=== PATIENT | female | born 1945 | race Caucasian/White ===

== ENCOUNTER 2021-06-02 11:06 | Outpatient (CLI) | payer MEDICARE, SELFPAY ==
--- NOTE | 2021-06-02 11:30 | ECG_ITS ---
Measurements Intervals [place] Rate: 69 P: 38 AL: 210 QRS: -23 QRSD: 112 T: 31 QT: 392 QTc: 421 Interpretive Statements SINUS RHYTHM WITH SINUS ARRHYTHMIA WITH FIRST DEGREE AV BLOCK INTRAVENTRICULAR CONDUCTION DELAY VOLTAGE CRITERIA FOR LVH BORDERLINE R WAVE PROGRESSION, ANTERIOR LEADS T WAVE ABNORMALITY IN ANTEROLATERAL LEADS- CONSIDER ISCHEMIA BASELINE ARTIFACT- I, III, AVR, AVL, AVF ABNORMAL ECG Electronically Signed On 06-02-2021 11:32:01 CDT by Khoa Campbell D.O.
[2021-06-02 11:50] LABS: Anion Gap 7 mmol/L (8-16); Blood Urea Nitrogen 12 mg/dL (7-17); Carbon Dioxide 26 mmol/L (22-30); Chloride 105 mmol/L (98-107); Estimated Glomerular Filt Rate > 60; Glucose 204 mg/dL (65-110); Potassium 4.1 mmol/L (3.4-5.0); Sodium 138 mmol/L (137-145)
== END 2021-06-02 11:07 | disposition home or self-care (01) ==
LOC: ANHSURGERY 11:13
PROVIDERS: Anesthesiology; PCP Hospitalist; Visit Provider Orthopaedic Surgery
DX: Z01.818 Encounter for other preprocedural examination (principal); E11.9 Type 2 diabetes mellitus without complications; I45.9 Conduction disorder, unspecified; I44.0 Atrioventricular block, first degree
CPT/HCPCS: 36415; 80048; 93005

== ENCOUNTER 2021-06-03 01:02 | Day surgery (SDC) | payer MEDICARE, SELFPAY ==
[2021-06-01 15:40] VITALS: BMI 36.8
--- NOTE | 2021-06-02 11:41 | P.PNAN_ITS ---
Anes - Initial Pre Proc Eval Procedure: Operation Date: 06/03/21 14:00 Proposed Procedures p Open Reduction Internal Fixation Right Proximal Humerus Fracture - Andre Dodson MD Date/Time: 06/02/21 11:41 Surgeon: Andre Dodson MD Pre Op Diagnosis: Right Humerus Fracture Patient Data Age: 75 Gender: F Height: 1.6 m Weight: 94.35 kg Allergies Allergy/AdvReac Type Severity Reaction Status Date / Time No Known Allergies Allergy Verified 06/03/21 12:14 Home Medications Medication Instructions Recorded Confirmed Type aspirin 81 mg PO DAILY 09/12/19 06/03/21 History atorvastatin 80 mg PO DAILY 09/12/19 06/03/21 History carvedilol 6.25 mg PO BID 09/12/19 06/03/21 History gabapentin 300 mg PO BID 09/12/19 06/03/21 History levothyroxine 125 mcg PO DAILY 09/12/19 06/03/21 History losartan 50 mg PO DAILY 09/12/19 06/03/21 History metformin 1,000 mg PO DAILY 09/12/19 06/03/21 History vn-ho-hvel-FA-Ca carb-vit K 1 tablet PO DAILY 09/12/19 06/03/21 History [One-A-Day Womens Formula] sertraline 100 mg PO DAILY 09/12/19 06/03/21 History adalimumab 40 mg/0.8 mL See Rx Instructions SUBCUT .COMPLEX 06/01/21 06/03/21 History subcutaneous syringe kit clobetasol 0.05 % scalp solution 1 applic TOPICAL DAILY 06/01/21 06/03/21 Hist ory fluticasone propionate 50 1 spray INTRANASAL DAILY 06/01/21 06/03/21 History mcg/actuation nasal spray,suspension hydrocodone-acetaminophen 1 tablet PO Q6H PRN 06/01/21 06/03/21 History nabumetone 500 mg PO BID 06/01/21 06/03/21 History sitagliptin [Januvia] 200 mg PO DAILY 06/01/21 06/03/21 History Patient hx anesthesia problems: none Family hx anesthesia problems: none PMFSH Past Medical History Medical History (Updated 06/02/21 @ 11:42 by Car Grimm DO) Chronic, continuous use of opioids Diabetes Hyperlipidemia Hypertension Hypothyroidism Surgical History Surgical History History of back surgery Social History Social History Smoking packs per day: 1 Smoking cigarettes per day: 20.0 Years smoked: 10 Smoking pack-years: 10.00 Smoking status: Former smoker Tobacco type: cigarettes Smoking end date: 09/24/79 Substance use type: other Other substance usage details: CBD GUMMIES EVERY DAY Spiritual care concerns: No Anes - Eval Final PreProcedure Day of Procedure 06/02/21 11:41 Patient weight: obese Heart: regular rate and rhythm Lungs: clear to auscultation and normal air movement Airway: Mallampati scale class II Neurological: alert and oriented Last oral intake: >/= 8 hours ASA classification: III Emergent: no Anesthetic plan: proceed Anesthesia type and monitoring: general LMA and standard monitoring Informed Consent: The patient's anesthetic plan and its attendant risks and benefits were discussed with the patient/family/POA. Questions were solicited an d answers provided to the satisfaction of the patient/family/POA.
[2021-06-03] VITALS (8 sets, daily range): BP systolic 127–153; BP diastolic 62–91; PULSE 55–70; RESP 12–21; TEMP 36.2–36.9; O2SAT 92–96; BMI 36.6
--- NOTE | ~2021-06-03 | XR_ITS ---
EXAMINATION: XR surgery orthopedic EXAM DATE: 06/03/2021 16:20 INDICATION: Right humeral ORIF. TECHNIQUE: Fluoroscopy used during right humeral ORIF performed by Dr. Andre Dodson MD. Radi ologist was not present for the imaging or procedure. Total fluoroscopic time of 60 seconds. The DA P for this procedure was 1.1 mGym2. A total of 9 images sent to PACS from the exam. There is no alec or study for comparison. FINDINGS: Acute closed posttraumatic comminuted right humeral head/neck fracture. This was reduced. Orthopedic plate was used with supporting screws. Correlate with procedure note. IMPRESSION: Fluoroscopy used during right humeral ORIF. Reviewed, dictated and finalized at location A.
--- NOTE | 2021-06-03 10:11 | WPDANESPNB ---
Anes - Peripheral Nerve Block Date/Time: 06/03/21 10:11 I have discussed with the patient/family/POA the placement of a peripheral nerve block for post-operative pain management, including associated risks, benefits, complications, and side effects. Alternative methods of post-operative analgesia were detailed. Questions were solicited and answers provided to the satisfaction of the patient/family/POA. Time-Out: A pre-procedural Time-Out was completed immediately before starting the procedure and confirmed: Patient Identification, Site, Procedure, Patient Position and the Availability of Requisite Equipment. Clinical Indications: Acute post-operative pain management requested by the operative surgeon. Nerve Block Insertion Note Anes-nerve block: interscalene right Patient position: supine Skin prep: chlorhexidine Needle: 22 gauge, stimulating, insulated echogenic needle. Needle length: 50 mm Technique: ultrasound Injectate: bupivacaine 0.5% with epi 5 mcg/ml (30cc- no epi) Observations: tolerated well Complications: none Procedure start time:: 1340 Procedure end time:: 1343
[2021-06-03] MEDS: LACTATED RINGERS 1,000 ML 30 ML IV CONT (12:44)
[2021-06-03] MEDS: KETOROLAC 15 MG/ML VIAL (*BKC) IV PUSH (12:44)
[2021-06-03 13:22] LABS: Anion Gap 6 mmol/L (8-16); Blood Urea Nitrogen 14 mg/dL (7-17); Calcium 9.6 mg/dL (8.4-10.2); Carbon Dioxide 25 mmol/L (22-30); Chloride 106 mmol/L (98-107); Estimated CRCL calculation 74 ml/min; Estimated Glomerular Filt Rate > 60; Glucose 171 mg/dL (65-110); Sodium 137 mmol/L (137-145)
--- NOTE | 2021-06-03 13:45 | WPDHPUPDATE1 ---
History and Physical Update Update Date/Time: 06/03/21 13:45 History and Physical has been reviewed, including an updated exam of the patient. There are NO changes in the patient's condition. Risks, benefits, and alternatives have been discussed and questions answered. Patient agrees to proceed with procedure.
[2021-06-03] MEDS: ceFAZolin 2 GM/D5W 50 ML 2 GM/50 ML BAG IVPB (13:52)
--- NOTE | 2021-06-03 14:06 | SUR.PREOP ---
7280; DR SOSA NOTIFIED OF PARTIAL SHAVE AND SCRUB DUE TO PT'S PAIN.
[2021-06-03 17:09] LABS: Glucose Point of Care 178 mg/dl (65-105)
--- NOTE | 2021-06-03 17:10 | P.OP_ITS ---
Procedure Note - Detailed Date of Procedure 06/03/21 Pre-op Diagnosis Right shoulder 3-part proximal humerus fracture. Post-op Diagnosis same Procedure Performed ORIF right proximal humerus surgical neck fracture ( 3 part valgus impacted.) Surgeon Andre Dodson MD Mail Examiner Maritza Mann PA-C Anesthesia general and regional ( Interscalene block.) Findings The fracture was partially healed with maturing callus. Alignment was improved with manipulation. The plate appeared to sit nicely on the bone although fluoroscopically it appeared that some of this bone was clearly filled in with callus under the periosteum. It was elected to leave this in situ, as the overall contour of the plate and the bone appeared nearly anatomic. The fracture was very stable at the conclusion of the procedure. Description of Procedure Preoperative antibiotics were given. A general anesthetic was administered. The patient was carefully placed in the beach chair position. The head and neck were carefully supported. The contralateral arm was padded. The shoulder was prepped and draped in usual sterile fashion and the articulating arm gonzalez was used. A longitudinal incision was created over the anterior shoulder. The deltopectoral interval was dissected. The fracture was identified. The biceps tendon was used for orientation. Fracture was cleared of debris and irrigated. Biplanar fluoroscopy was used throughout the procedure to confirm anatomic reduction and appropriate placement of all implants. Reduction was performed with a combination of forceps and K-wires. The plate was fixed and the central wire was used to confirm appropriate placement. A compression was screw was placed in the dynamic hole. The proximal locking screws and pegs were placed. Careful attention was paid to the length of the screws to avoid penetration. Shaft locking screws were then placed. Supplemental suture fixation was placed in the rotator cuff. The sutures were tied through the plate. The wound was irrigated and closed with interrupted 1. Vicryl suture followed by 0 strata fix, 2 0 strata fix and Steri-Strips. A sterile dressing was applied. The patient was extubated and brought to the recovery room in stable condition. There were no complications. Implants [employer] ALPS locking periarticular plate Estimated Blood Loss -200.0 Drains No Packing No Complications No immediate complications Condition stable Disposition PACU
== END 2021-06-03 17:52 | disposition home or self-care (01) ==
PROVIDERS: PCP Hospitalist; Visit Provider Orthopaedic Surgery
PROC: (CPT 23615; principal; 2021-06-03 14:00)
DX: S42.231A 3-part fracture of surgical neck of right humerus, initial encounter for closed fracture (principal); G89.18 Other acute postprocedural pain; W01.0XXA Fall on same level from slipping, tripping and stumbling without subsequent striking against object, initial encounter; I10 Essential (primary) hypertension; E78.5 Hyperlipidemia, unspecified; E11.9 Type 2 diabetes mellitus without complications; E03.9 Hypothyroidism, unspecified; Z79.891 Long term (current) use of opiate analgesic; Z87.891 Personal history of nicotine dependence; F12.90 Cannabis use, unspecified, uncomplicated; E66.9 Obesity, unspecified; Z68.36 Body mass index [BMI] 36.0-36.9, adult; Z79.82 Long term (current) use of aspirin; Z79.84 Long term (current) use of oral hypoglycemic drugs
CPT/HCPCS: 23615; 64415; 36415; 80048; 82948; 93005; A4565; C1713; J0330; J0690; J1100; J1885; J2250; J2370; J2405; J2704; J2710; J3010; J7120

== ENCOUNTER 2021-06-20 11:30 | Inpatient (IN) | payer MEDICARE, SELFPAY ==
--- NOTE | ~2021-06-20 | XR_ITS ---
EXAMINATION: XR shoulder RT min 2V EXAM DATE: 06/28/2021 18:48 INDICATION: Status post proximal humerus fracture, hardware removal. TECHNIQUE: The following right shoulder projections obtained: frontal projection with internal rotati on, frontal projection with external rotation, Grashey, and scapular Y view (4+ views). Comparison is made to prior examination from 06/01/2021, 06/20/2021, 06/21/2021. FINDINGS: Hardware was present on x-ray 06/20/2021, was removed and a subsequent x-ray the next day. P osition of the right humeral neck, greater tuberosity fracture is stable. There are some screw tracks in the humeral head and neck. Mildly mottled appearance to the humeral head, partly due to periostea l reaction. Given history of suspected infected shoulder hardware, sequela from osteomyelitis not exc ludable. Right axillary surgical clips. Probable right 5th rib fracture anterolaterally, age indeterminate. There is mild inferior subluxation of the humeral head without lalita dislocation. IMPRESSION: 1. Right humeral head/neck fractures with some increase in periosteal reaction, healing response. Ali gnment stable. 2. Mottled appearance overlying humeral head and neck at least partly from the increasing periosteal reaction. Osteomyelitis not excludable. Reviewed, dictated and finalized at location A. IMPRESSION: 1. Right humeral head/neck fractures with some increase in periosteal reaction, healing response. Alignment stable. 2. Mottled appearance overlying humeral head and neck at least partly from the increasing periosteal reaction. Osteomyelitis not excludable.
--- NOTE | ~2021-06-20 | XR_ITS ---
EXAMINATION: XR shoulder RT min 2V DATE: 06/21/2021 13:01 INDICATION: Postoperative evaluation following of orthopedic instrumentation removal TECHNIQUE: AP and transscapular Y views of the right shoulder were obtained. COMPARISON: 06/20/2021 FINDINGS: Interval explantation of the prior plate and screw fixation at the proximal left humerus. Again seen is an ununited appearing mildly comminuted transverse fracture across the surgical neck with up to 9 mm anteromedial displacement. Expected small amount of soft tissue gas as well as a surgical drain at the operative bed. A few unchanged surgical clips at the right axilla consistent with prior right ax illary lymph node dissection. Mild opacities at the right lung base and favor atelectasis over pneumo jared. IMPRESSION: 9 mm anteromedial displacement of likely still ununited mildly comminuted transverse fracture to surg ical neck of the proximal right humerus post explantation of prior internal fixation instrumentation. Reviewed, dictated and finalized at location A.
--- NOTE | ~2021-06-20 | XR_ITS ---
EXAMINATION: XR chest port-a-cath/central DATE: 06/29/2021 16:20 INDICATION: Central line placement. TECHNIQUE: A single frontal view of the chest was obtained. COMPARISON: Chest 2 views 03/07/2014, right shoulder radiographs 06/28/2021 FINDINGS: There is mild atelectasis in lingula. No pleural effusion or pneumothorax. The heart size i s normal. A right internal jugular central venous catheter is seen with tip at the superior cavoatria l junction. There is a fracture of surgical neck of proximal right humerus. There are surgical clips in right axilla. IMPRESSION: 1. Central line tip at superior cavoatrial junction. 2. Mild atelectasis in lingula. 3. Fracture of proximal right humerus again seen. Reviewed, dictated and finalized at location A.
--- NOTE | ~2021-06-20 | XR_ITS ---
EXAMINATION: XR fl guide central line place DATE: 06/29/2021 15:45 INDICATION: Central line placement. TECHNIQUE: A single intraoperative fluoroscopic view of the chest was obtained. I was not present. Fl uoroscopy time was 224 seconds. COMPARISON: Chest single view 06/29/2021 FINDINGS: There is a central line tip in right atrium. IMPRESSION: 1. Central line tip in right atrium. Reviewed, dictated and finalized at location A.
--- NOTE | ~2021-06-20 | XR_ITS ---
EXAMINATION: XR shoulder RT min 2V EXAM DATE: 06/20/2021 16:45 INDICATION: Infection status post right proximal/ANTERIOR humerus ORIF . TECHNIQUE: Frontal, oblique, lateral projections right shoulder. Comparison is made to prior examina tion from 06/01/2021. FINDINGS: There is been interval placement of orthopedic plate, multiple supporting screws bridging t he comminuted right humeral neck and greater tuberosity fractures. Hardware is intact and in expected position. Alignment is anatomic and previously seen displacement has been reduced. No osseous erosiv e change identified at this time to suggest osteomyelitis. There is osteopenia. Right axillary surgic al clips. There is mild inferior subluxation of the humeral head with respect to the glenoid on some of the projections. No lalita dislocation. IMPRESSION: 1. Intact right humeral head/neck hardware. 2. No radiographic evidence of osteomyelitis. Reviewed, dictated and finalized at location A.
[2021-06-20 10:00] VITALS: BP 149/81; PULSE 72; RESP 18; TEMP 36.4; O2SAT 99
--- OUTSIDE RECORDS SUMMARY | 2021-06-20 10:22 | XMS_ITS ---
:1945 External Reference #:[id number] Author Care Team Providers Name Role Phone Moriah Rodriguez Primary Care Provider Unavailable Allergies Code Code System Name Reaction Severity Status Onset Adhesive Tape Itching Mild to Active ? Moderate Medications Name Status Start Date Stop Date ? ? amoxicillin 500 mg-potassium Completed ? 11/2019 clavulanate 125 mg tablet amoxicillin 875 mg-potassium clavulanate 125 mg tablet Completed ? 07/03/2020 TK 1 T PO Q 12 H FOR 14 DAYS atorvastatin 80 mg tablet Active ? Not av ailable Take 1 tablet every day by oral route. azithromycin 250 mg tablet Completed ? 11/24 betamethasone valerate 0.1 % topical cream Active ? Not available ZAN MODEST AMOUNT TOPICALLY TO RASH ON FEET BID buspirone 5 mg tablet Completed ? 11/25/2019 carvedilol 6.25 mg tablet Active ? Not av ailable TK 1 T PO BID WITH MEALS cephalexin 500 mg capsule Completed ? 2019 diclofenac sodium 75 mg tablet,delayed Completed ? 11/25/2019 release etodolac 400 mg tablet Active ? Not avail able Take 1 tablet 3 times a day by oral route as needed. fluconazole 150 mg tablet Completed ? 2019 gabapentin 100 mg capsule Completed ? 2019 gabapentin 300 mg capsule Active ? Not av ailable hydroxyzine HCl 10 mg tablet Active ? Not available TK 1 T PO QHS PRF ITCHING levothyroxine 125 mcg tablet Active ? Not available TK 1 T PO D losartan 50 mg tablet Active ?
--- NOTE | 2021-06-20 10:49 | ADMGEN ---
This patient, Wendy Stokes, was admitted to Medical Room 349-01. Patient/family oriented to hospital policies and general routines including ID bracelet, bed and alarms, visiting hours, pain management, procedures, bathroom and other care routines, personal items, smoking policy, room service/diet, and visiting hours. Information on how to activate the Rapid Response Team has been discussed. Patient/Family are encouraged to report perceived risks to care and to ask questions if they do not understand what they are told or what they should do. Patient in bed resting comfortably at this time with no complaints. Will continue to monitor patient.
[2021-06-20 11:58] VITALS: BMI 32.2
[2021-06-20] MEDS: oxyCODONE HCL (*CRX) 5 MG TAB IR 10 MG PO ×3 (12:17→20:40)
[2021-06-20 12:21] LABS: Estimated CRCL calculation 60 ml/min; Estimated Glomerular Filt Rate > 60
--- NOTE | 2021-06-20 12:27 | P.PNINF_ITS ---
Progress Note: A&P Assessment and Plan (1) Deep postoperative wound infection: Code(s): T81.42XA - Infection following a procedure, deep incisional surgical site, initial encounter Status: Acute Assessment and Plan: 1. SSI R upper arm 2. Humerus facture 3. Erythema R knee, no convincing sig of infection at present 4. Psoriasis, on Humira, last dose 06/18. Her ongoing treatment predisposed to this infection REC Ctx and Vanc #1. Request intraoperative aerobic and anaerobic and fungal and Mycobacterial cultures. No Humira until infection is cleared. Subjective Date/time seen: 06/20/21 12:27 Objective Data Vital Signs Vital Signs: Vital Signs - 24 hr 06/20/21 10:00 Temperature 36.4 C Pulse Rate 72 Respiratory Rate 18 Blood Pressure 149/81 H Pulse Oximetry 99 Meds/Results Medications: Active Medications Generic Name Dose Route Start Last Admin Trade Name Freq PRN Reason Stop Dose Admin Sodium Chloride 1,000 mls @ 100 mls/hr 06/20/21 11:30 Normal Saline Iv IV CONT .Q10H CRISTY Acetaminophen 1,000 mg in 100 mls @ 400 mls/hr 06/20/21 12:00 Ofirmev 1,000 Mg Ivpb IVPB 06/21/21 11:59 Q6HR CRISTY Cefepime HCl 1 gm in 50 mls @ 100 mls/hr 06/20/21 14:00 Maxipime 1 Gm/D5w 50 Ml IVPB Q8H [facility] Vancomycin HCl 1,250 mg in 250 mls @ 200 mls/hr 06/20/21 12:30 Vancomycin 1,250 Mg/D5w 250 Ml IVPB 06/20/21 13:44 ONCE ONE Naloxone HCl 0.1 mg 06/20/21 11:30 Naloxone Hcl 0.4 Mg/Ml Vial IV PUSH Q2M PRN Opiate Reversal Ondansetron HCl 4 mg 06/20/21 11:30 Ondansetron Inj 4 Mg/2 Ml Vial IV PUSH Q6H PRN Nausea And Vomiting Oxycodone HCl 10 mg 06/20/21 11:35 06/20/21 12:17 Oxycodone Hcl (*Crx) 5 Mg Tab Ir PO 10 mg Q4H PRN Administration Pain Rated 6 or Greater Vancomycin HCl 1 each 06/20/21 11:35 Vancomycin Pharmacist To Dose IVPB PER PROTOCOL CRISTY Labs Labs: Laboratory Results - last 24 hr 06/20/21 12:00 Creatinine 0.70 Estim Creat Clear Calc 60 Estimated GFR > 60
[2021-06-20 13:17] VITALS: BP 135/68; PULSE 86; RESP 16; TEMP 36.8; O2SAT 96
[2021-06-20] MEDS: SODIUM CHLORIDE 0.9% IV 1,000 ML 100 ML IV CONT (15:08)
--- NOTE | 2021-06-20 16:32 | PM.IMCN ---
Assessment and Plan Assessment and plan (1) Deep postoperative wound infection: Code(s): T81.42XA - Infection following a procedure, deep incisional surgical site, initial encounter Status: Acute Assessment and Plan: Dr. Dodson has seen the patient. Dr. michelle seen the patient. The patient is on ceftriaxone and vancomycin. I was going to try to culture some of the drainage coming from the right upper arm. However the patient stated that she was told that tomorrow they are going to drain some of the fluid for culture tomorrow. Dr. michelle requested intraoperative a aerobic and anaerobic and fungal and mycobacterial cultures. No Humira until infection is cleared. (2) Diabetes: Code(s): E11.9 - Type 2 diabetes mellitus without complications Status: Chronic Assessment and Plan: Continue with Januvia. Sliding scale insulin. Check A1c. (3) Hypertension: Code(s): I10 - Essential (primary) hypertension Status: Chronic Assessment and Plan: Continue with losartan and monitor her basic metabolic panel. Continue with Coreg. (4) Hypothyroidism: Code(s): E03.9 - Hypothyroidism, unspecified Status: Chronic Assessment and Plan: Continue with home medication. Check thyroid level. (5) Hyperlipidemia: Code(s): E78.5 - Hyperlipidemia, unspecified Status: Chronic Assessment and Plan: Continue with atorvastatin. (6) Psoriasis: Code(s): L40.9 - Psoriasis, unspecified Status: Chronic Assessment and Plan: Humira is on hold at this time. (7) Chronic back pain: Code(s): M54.9 - Dorsalgia, unspecified; G89.29 - Other chronic pain Status: Chronic Assessment and Plan: Continue with gabapentin and [place]. (8) Generalized anxiety disorder: Code(s): F41.1 - Generalized anxiety disorder Status: Chronic Assessment and Plan: Continue with Zoloft HPI Data of Consult Consult date: 06/20/21 Requesting Physician: Andre Dodson MD Primary Care Provider: Bradley RubinMD Consult Narrative Narrative: Wendy Stokes is a 75 year old female this is a 75 year old female patient who had an ORIF of the right proximal humerus surgical neck 3 part focus impacted per Dr. Dodson on 06/03/2021. See operative report. The patient had a [employer] a LPS locking periarticular plate placed at that time. Prior to her surgery, The patient sustained a right shoulder fracture after ground level fall the patient fell at a group home while visiting her mother. She notes that the floor was sticking in her shoe tripped her. The patient stated that she fell on 05/16/2021 and was referred to Dr. Dodson. The patient stated that 4 days after surgery she noticed that the area started to get red. She told me that she did notify her physician and was placed on antibiotics. The patient stated that she had not gotten any better. The patient went to [facility] this morning and was then transferred back to [facility]. Dr. michelle had been consulted and has already seen the patient. The patient is a very difficult stick and the venous access nurse was able to get an IV in her left forearm. Patient has multiple old bruises noted on her left arm. She had surgery to her right upper arm which is draining clear fluid. The patient had been started on Keflex a couple days ago without any improvement. The patient was started on IV fluids, IV Tylenol, vancomycin and Rocephin. The patient was admitted to inpatient services per Dr. Dodson and the hospitalist group at been consulted. I thank Dr. Dodson for this opportunity to consult on this patient. The date of service is 06/20/2021. Review of Systems Review of Systems: All systems reviewed & are unremarkable except as noted in HPI and below Constitutional: Constitutional: Reports as per HPI and Reports no additional constitutional complaints E
[2021-06-20 16:38] LABS: Glucose Point of Care 172 mg/dl (65-105)
[2021-06-20 17:00] VITALS: BP 124/54; PULSE 72; RESP 18; TEMP 36.6; O2SAT 96
--- NOTE | 2021-06-20 17:20 | CONS_ITS ---
DATE OF CONSULTATION: 06/20/2021 REASON FOR CONSULTATION: Surgical site infection. HISTORY OF PRESENT ILLNESS: A 75-year-old female who is on chronic Humira for psoriasis. Her last dose was 06/18/2021. She takes this every 2 weeks. No other immunosuppressants. She injured her right humerus in a fracture about the beginning of May. She was taken to the operating room on June 03 approximately where she underwent ORIF. About postop day 5, she noted induration in the inferior aspect of the incision. She then noted erythema, which began to spread over the next week. Pointing patient 3 days before admission and cephalexin was started. She also has since had some nausea, which she relates to her analgesics. Pain became noticeable over the weekend and she presented to [facility] Emergency Room last evening where she received IV antibiotics and was apparently told to continue her oral cephalexin. She was seen in the office today and has now been admitted. No other recent antibiotics. No past trauma to the right arm. Upon my questioning, it appears that she had an incision which was fixed with glue, rather than benigno or stitches. No fever, chills, sweats, vomiting or distal arm pain. She has had some numbness in the fingertips x5, particularly over the thumb. ALLERGIES: NONE KNOWN. HABITS: Ex-smoker, quit in 1979. No illicit drugs. No alcohol. PRESENT MEDICATIONS: See above. PAST MEDICAL HISTORY: This includes diabetes mellitus, hyperlipidemia, hypertension, hypothyroidism, previous back surgery. REVIEW OF SYSTEMS: Redness over the right knee where she fell. 14-point review otherwise negative. FAMILY HISTORY: Not pertinent to her present illness. SOCIAL HISTORY: She was visiting her mother at a senior care on 05/16 when she fell. There is no family at the bedside. PHYSICAL EXAMINATION: GENERAL: This is an elderly female, who appears her actual age. No acute distress. VITAL SIGNS: Afebrile, 72, 18, 149/81, 99% room air. SKIN: Warm and dry. No generalized rashes. She has some mild erythema over the lateral right patella area. No warmth, tenderness, edema, or effusions. NODES: No cervical adenopathy. EENT: Pupils equal, round, reactive to light and accommodation. The oropharynx, oral mucosa normal. NECK: No masses, thyromegaly or meningismus. LUNGS: Clear to auscultation and percussion. CARDIAC: Regular rate and rhythm. No murmur or gallop. Radial pulses 2+. Dorsalis pedis pulses 1+. ABDOMEN: Nontender. No masses, organomegaly, or distention, and she has normal bowel sounds. EXTREMITIES: No peripheral clubbing, cyanosis, or edema. MUSCULOSKELETAL: Right lateral upper arm incision is fully closed. She has erythema over most of the lateral aspect of the arm along with induration in the inferior aspect of the incision. She has 2 areas of pointing in the inferior aspect as well. There is warmth. There is tenderness. LABORATORY DATA: She reports to me that blood cultures were done last evening at [facility]. We do not have access to those records, but presumably no growth after short incubation. Chemistries have not been redone. Creatinine today 0.7 otherwise. Other labs all pending. RADIOLOGY: Intraoperative x-rays 06/03/2021, posttraumatic, comminuted right humerus head and neck fracture which was reduced. ASSESSMENT: 1. Postoperative erythema, drainage, pain, and induration surgical site infection. This may well be deep. She has several drops of clear fluid that appears to be serum. However, she may have abscess or other deep infection. No known vascular compromise to the right upper extremity. 2. Humerus fracture. 3. Psoriasis. 4. Immunosuppressed on Humira,
[2021-06-20] MEDS: GABAPENTIN 300 MG CAPSULE PO (18:06)
[2021-06-20 20:00] VITALS: PULSE 66; RESP 16; O2SAT 93
[2021-06-20 21:05] VITALS: BP 114/57; PULSE 66; RESP 16; TEMP 36.9; O2SAT 93
[2021-06-20 23:45] VITALS: BP 114/56; PULSE 68; RESP 18; TEMP 36.8; O2SAT 95
[2021-06-21] VITALS (17 sets, daily range): BP systolic 110–144; BP diastolic 56–72; PULSE 64–80; RESP 14–20; TEMP 36.1–36.9; O2SAT 91–100
[2021-06-21] MEDS: SODIUM CHLORIDE 0.9% IV 1,000 ML 100 ML IV CONT (03:06)
[2021-06-21] MEDS: oxyCODONE HCL (*CRX) 5 MG TAB IR 10 MG PO ×3 (03:14→20:27)
[2021-06-21] MEDS: LEVOTHYROXINE SODIUM 125 MCG TABLET PO (05:52)
[2021-06-21 06:08] LABS: Basophils Absolute Auto 0.1 K/mm3 (0.0-0.1); Basophils Percent Auto 1.3 % (0.2-1.2); Eosinophils Absolute Auto 0.3 K/mm3 (0-0.3); Eosinophils Percent Auto 3.7 % (0-4.4); Hematocrit 33.4 % (37.0-47.0); Hemoglobin 10.3 g/dL (12.0-15.0); Immature Granulocyte Absolute 0.12 K/mm3 (0.00-0.031); Immature Granulocyte Percent A 1.8 % (0-0.5); Lymphocytes Absolute Auto 1.76 K/mm3 (0.9-3.2); Lymphocytes Percent Auto 26.2 % (18.3-44.2); Mean Corpuscular HGB Conc 30.8 g/dl (32-36); Mean Corpuscular Hemoglobin 27.4 pg (26-34); Mean Corpuscular Volume 88.8 fl (80-100); Mean Platelet Volume 9.9 fl (7.4-10.4); Monocytes Absolute Auto 0.9 K/mm3 (0.1-0.6); Monocytes Percent Auto 12.6 % (2.6-8.5); Neutrophils Absolute Auto 3.7 K/mm3 (1.3-6.7); Neutrophils Percent Auto 54.4 % (45.5-73.1); Platelet Count Result 388 k/mm3 (150-375); Red Blood Count 3.76 M/mm3 (4.2-5.4); Red Cell Distribution Width 13.5 % (11.5-14.5); White Blood Count 6.7 K/mm3 (4.5-10.0)
[2021-06-21 06:23] LABS: Lactic Acid Reflex 0.8 mmol/L (0.7-2.1)
[2021-06-21 06:25] LABS: Alanine Aminotransferase 32 U/L (4-35); Albumin Level 3.2 g/dL (3.5-5.1); Alkaline Phosphatase 309 U/L (38-126); Anion Gap 7 mmol/L (8-16); Aspartate Amino Transferase 28 U/L (14-36); Bilirubin,Total 0.5 mg/dL (0.2-1.3); Blood Urea Nitrogen 10 mg/dL (7-17); Calcium 8.8 mg/dL (8.4-10.2); Carbon Dioxide 28 mmol/L (22-30); Chloride 105 mmol/L (98-107); Estimated CRCL calculation 69 ml/min; Estimated Glomerular Filt Rate > 60; Glucose 148 mg/dL (65-110); Lactate Dehydrogenase 280 U/L (313-618); Magnesium 1.4 mg/dL (1.6-2.3); Potassium 3.3 mmol/L (3.4-5.0); Sodium 140 mmol/L (137-145)
[2021-06-21 06:55] LABS: Hemoglobin A1C 8.5 % (<5.7)
[2021-06-21] MEDS: SERTRALINE HCL 50 MG TABLET 100 MG PO (08:22)
[2021-06-21] MEDS: ATORVASTATIN 40 MG TABLET 80 MG PO (08:22)
[2021-06-21] MEDS: carvediloL 6.25 MG TABLET PO (08:23)
[2021-06-21] MEDS: LOSARTAN POTASSIUM 50 MG TABLET PO (08:23)
[2021-06-21] MEDS: FLUTICASONE PROPIONATE 0.05% NA SPR 16 GM BTL (*BKC) 1 SPRAY NASAL (08:24)
[2021-06-21 08:49] LABS: Glucose Point of Care 157 mg/dl (65-105)
--- NOTE | 2021-06-21 09:47 | WPDANESEFPP ---
Anes - Eval Final PreProcedure Day of Procedure 06/21/21 09:47 Patient weight: obese Heart: regular rate and rhythm Lungs: clear to auscultation Airway: Mallampati scale class II Neurological: alert and oriented Last oral intake: >/= 8 hours ASA classification: III Anesthetic plan: proceed Anesthesia type and monitoring: general LMA and standard monitoring Results Review: All pre-operative results and documents have been reviewed as part of the pre-operative evaluation. Informed Consent: The patient's anesthetic plan and its attendant risks and benefits were discussed with the patient/family/POA. Questions were solicited and answers provided to the satisfaction of the patient/family/POA.
[2021-06-21] MEDS: LACTATED RINGERS 1,000 ML 30 ML IV CONT ×2 (09:54→12:37)
--- NOTE | 2021-06-21 10:29 | WPDHPUPDATE1 ---
History and Physical Update Update Date/Time: 06/21/21 10:29 History and Physical has been reviewed, including an updated exam of the patient. Patient states she feels slightly better after antibiotics. Appears more comfortable. Slight decreased redness. Persistent drainage. Risks, benefits, and alternatives have been discussed and questions answered. Patient agrees to proceed with procedure.
--- NOTE | 2021-06-21 12:25 | SUR.OPER ---
SAJ=[id number]
[2021-06-21 12:56] LABS: Glucose Point of Care 152 mg/dl (65-105)
[2021-06-21] MEDS: fentaNYL CITRATE INJ (*CRX) 100 MCG/2 ML VIAL 25 MCG IV PUSH ×8 (13:00→13:43)
[2021-06-21] MEDS: POTASSIUM CHLORIDE 20 MEQ TABLET 40 MEQ PO (15:38)
--- NOTE | 2021-06-21 16:16 | PM.IMPN ---
Progress Note: A&P Assessment and Plan (1) Deep postoperative wound infection: Code(s): T81.42XA - Infection following a procedure, deep incisional surgical site, initial encounter Status: Acute Assessment and Plan: Patient presented to an outside area hospital and found to have a wound infection -patient went to the OR today with Dr. Dodson and wound cultures were obtained -continue ceftriaxone and vancomycin at this time and tailor antibiotics to the cultures once available -white blood cell count normal at 6.7 today\ -infectious disease consulted (2) Diabetes: Code(s): E11.9 - Type 2 diabetes mellitus without complications Status: Chronic Assessment and Plan: Last glucose 152 -continue sliding scale insulin and Januvia -A1c 8.5 (3) Hypertension: Code(s): I10 - Essential (primary) hypertension Status: Chronic Assessment and Plan: Last blood pressure 122/65 - Continue with Coreg and losartan (4) Hypothyroidism: Code(s): E03.9 - Hypothyroidism, unspecified Status: Chronic Assessment and Plan: Continue levothyroxine -TSH within normal limits (5) Hyperlipidemia: Code(s): E78.5 - Hyperlipidemia, unspecified Status: Chronic Assessment and Plan: Continue with atorvastatin (6) Psoriasis: Code(s): L40.9 - Psoriasis, unspecified Status: Chronic Assessment and Plan: Humira is on hold at this time. (7) Chronic back pain: Code(s): M54.9 - Dorsalgia, unspecified; G89.29 - Other chronic pain Status: Chronic Assessment and Plan: No complaints today (8) Generalized anxiety disorder: Code(s): F41.1 - Generalized anxiety disorder Status: Chronic Assessment and Plan: Chronic and stable -Continue with Zoloft Time Spent With Patient Time with patient: 25 - 35 minutes Subjective Date/time seen: 06/21/21 16:16 Interval history: Pt is a 75-year-old female here for postop infection. Patient was seen today and states her pain is improving and is now 6/10. She has no numbness or tingling to the hand or shoulder. She admits to some constipation but denies chest pain, shortness of breath, fevers, chills or diarrhea. She has not eaten anything yet today but is hungry. Review of Systems Review of Systems: All systems reviewed & are unremarkable except as noted in HPI and below Exam Narrative: General: Well developed well nourished patient in NAD HEENT: normocephalic Neck: supple Neuro: Alert and oriented x4 CV:RRR Resp:CTA Abd: Soft, non distended. No pain to palpation. Positive bowel sounds Extremities: Right shoulder wrapped with multiple layers of gauze with a drain currently without any discharge. Pulses and sensation intact Objective Data Vital Signs Vital Signs: Vital Signs - 24 hr 06/20/21 17:00 06/20/21 20:00 06/20/21 21:05 Temperature 97.9 F 98.4 F Pulse Rate 72 66 66 Respiratory Rate 18 16 16 Blood Pressure 124/54 L 114/57 L Pulse Oximetry 96 93 93 06/20/21 23:45 06/21/21 06:00 06/21/21 08:00 Temperature 98.3 F 97.7 F 98.0 F Pulse Rate 68 70 65 Respiratory Rate 18 18 18 Blood Pressure 114/56 L 129/56 L 144/72 H Pulse Oximetry 95 94 98 06/21/21 08:23 06/21/21 09:21 06/21/21 12:37 Temperature 97.7 F 97.1 F L Pulse Rate 70 64 80 Respiratory Rate 16 20 Blood Pressure 134/67 124/69 Pulse Oximetry 96 97 06/21/21 12:50 06/21/21 13:05 06/21/21 13:20 Temperature Pulse Rate 71 70 69 Respiratory Rate 20 16 16 Blood Pressure 123/62 119/60 118/57 L Pulse Oximetry 97 93 95 06/21/21 13:34 06/21/21 13:45 06/21/21 14:14 Temperature 98.0 F Pulse Rate 70 69 65 Respiratory Rate 16 14 14 Blood Pressure 114/63 110/59 L 117/57 L Pulse Oximetry 91 96 97 06/21/21 14:20 06/21/21 14:50 Temperature 97.5 F L 97.9 F Pulse Rate 72 67 Respiratory Rate 18 18 Blood Pressure 122/65 122
--- NOTE | 2021-06-21 16:19 | W.PM.PROC2 ---
Procedure Note - Detailed Date of Procedure 06/21/21 Pre-op Diagnosis Deep right shoulder wound infection, s/p ORIF proximal humerus fracture. Post-op Diagnosis same Procedure Performed Irrigation and debridement right shoulder deep wound with removal of deep implanted hardware plate, and screws. Surgeon Andre Dodson MD Unit Reactor Operator Maritza Mann PA-C Anesthesia general Indications Draining hematoma at the inferior aspect of the right shoulder surgical wound. Approaching 3 weeks postoperative. Approaching 6 weeks from the date of the fracture. Radiographically, the prior fracture appeared to be well healed. Findings Moderate sized infected hematoma in the subcutaneous tissues in front of the pectoralis major. The fascia appeared to be intact. However, there was concern over possible deep infection with retained hardware, particularly given patient's immunocompromised status and diabetes. The deep implanted plate and screws were removed. The fracture site remained stable after hardware removal. Description of Procedure A general anesthetic was administered. The patient was placed in the [place] hogshead stock clerk with the beach chair position. Shoulder prepped and draped in the usual sterile fashion with Betadine scrub. The previous wound was reopened. Deep hematoma with purulence encountered distally. This cavitary area was irrigated copiously. Gentle curettage of the tissue was performed to relieve use remove any necrotic and loose soft tissue debris. Overall tissue quality was good except for the most superficial area just medial to the incision. A total of 7 L irrigation used. Additionally peroxide soak and dilute Betadine soak were performed during the procedure. The deltopectoral interval appeared to be intact but was easily opened with manual dissection. The plate and screws were removed. No pathologic tissue encountered. The fracture moved as 1 unit. One deep drain placed. The wound closed in layers with limited suture burden. PDS monofilament in the deltopectoral interval and deep subcutaneous tissues. 3-0 Monocryl and the more superficial tissues. Interrupted 2-0 nylon in the skin. Wound was closed quite loosely to allow for appropriate drainage. Estimated Blood Loss -100.0 Urine Output 1,100 Drains Yes (1 medium hemovac drain) Packing No Pathology yes ( aerobic, anaerobic, mycobacterium and fungal cultures.) Complications None Condition stable Disposition PACU
[2021-06-21 16:46] LABS: Glucose Point of Care 238 mg/dl (65-105)
[2021-06-21] MEDS: MAGNESIUM SULF 2 GM/WATER 50ML 2 GM/50 ML BAG IVPB (17:00)
[2021-06-21] MEDS: GABAPENTIN 300 MG CAPSULE PO (17:00)
[2021-06-21] MEDS: polyethylene glycoL 3350 17 GM POWD.PACK PO (17:00)
[2021-06-21] MEDS: DOCUSATE SODIUM 100 MG CAPSULE PO (17:00)
[2021-06-21] MEDS: INSULIN ASPART (*BKC) 100 UNITS/ML SUB-Q (17:05)
[2021-06-21] MEDS: SENNOSIDES 8.6 MG TABLET PO (20:27)
[2021-06-21 20:39] LABS: Glucose Point of Care 225 mg/dl (65-105)
[2021-06-21] MEDS: HYDROcodone/acetaminophen (*CRX) 5-325 MG TABLET 1 TAB PO (23:46)
[2021-06-22] VITALS (7 sets, daily range): BP systolic 104–125; BP diastolic 48–72; PULSE 63–72; RESP 16–20; TEMP 35.6–36.9; O2SAT 90–97
[2021-06-22] MEDS: oxyCODONE HCL (*CRX) 5 MG TAB IR 10 MG PO ×3 (02:13→13:44)
[2021-06-22] MEDS: LEVOTHYROXINE SODIUM 125 MCG TABLET PO (06:04)
[2021-06-22 06:20] LABS: Basophils Absolute Auto 0.1 K/mm3 (0.0-0.1); Basophils Percent Auto 0.5 % (0.2-1.2); Eosinophils Absolute Auto 0.1 K/mm3 (0-0.3); Eosinophils Percent Auto 0.9 % (0-4.4); Hematocrit 30.6 % (37.0-47.0); Hemoglobin 9.6 g/dL (12.0-15.0); Lymphocytes Absolute Auto 2.05 K/mm3 (0.9-3.2); Lymphocytes Percent Auto 20.6 % (18.3-44.2); Mean Corpuscular HGB Conc 31.4 g/dl (32-36); Mean Corpuscular Hemoglobin 26.7 pg (26-34); Mean Platelet Volume 9.9 fl (7.4-10.4); Monocytes Absolute Auto 0.9 K/mm3 (0.1-0.6); Monocytes Percent Auto 8.7 % (2.6-8.5); Neutrophils Absolute Auto 6.8 K/mm3 (1.3-6.7); Neutrophils Percent Auto 68.3 % (45.5-73.1); Platelet Count Result 410 k/mm3 (150-375); Red Cell Distribution Width 13.2 % (11.5-14.5)
[2021-06-22 06:36] LABS: Alanine Aminotransferase 27 U/L (4-35); Albumin Level 3.1 g/dL (3.5-5.1); Alkaline Phosphatase 297 U/L (38-126); Anion Gap 7 mmol/L (8-16); Aspartate Amino Transferase 25 U/L (14-36); Bilirubin,Total 0.3 mg/dL (0.2-1.3); Blood Urea Nitrogen 9 mg/dL (7-17); Calcium 8.8 mg/dL (8.4-10.2); Carbon Dioxide 26 mmol/L (22-30); Chloride 104 mmol/L (98-107); Estimated CRCL calculation 69 ml/min; Estimated Glomerular Filt Rate > 60; Glucose 159 mg/dL (65-110); Magnesium 1.8 mg/dL (1.6-2.3); Sodium 137 mmol/L (137-145)
[2021-06-22] MEDS: DOCUSATE SODIUM 100 MG CAPSULE PO ×2 (08:33→16:49)
[2021-06-22] MEDS: FLUTICASONE PROPIONATE 0.05% NA SPR 16 GM BTL (*BKC) 1 SPRAY NASAL (08:34)
[2021-06-22] MEDS: GABAPENTIN 300 MG CAPSULE PO ×2 (08:35→16:49)
[2021-06-22] MEDS: polyethylene glycoL 3350 17 GM POWD.PACK PO (08:35)
[2021-06-22] MEDS: THERAPEUTIC MULTIVITAMINS/MINERALS TAB (*BKC) 1 TABLET PO (08:35)
[2021-06-22] MEDS: LOSARTAN POTASSIUM 50 MG TABLET PO (08:36)
[2021-06-22] MEDS: SERTRALINE HCL 50 MG TABLET 100 MG PO (08:36)
[2021-06-22] MEDS: ATORVASTATIN 40 MG TABLET 80 MG PO (08:36)
[2021-06-22 09:19] LABS: Glucose Point of Care 140 mg/dl (65-105)
--- NOTE | 2021-06-22 10:04 | PM.IMPN ---
Progress Note: A&P Assessment and Plan (1) Deep postoperative wound infection: Code(s): T81.42XA - Infection following a procedure, deep incisional surgical site, initial encounter Status: Acute Assessment and Plan: Patient presented to an outside area hospital and found to have a wound infection -patient went to the OR 06/21/[address] Dodson for hardware removal with I&D -Gram stain showing Gram-positive cocci, will await identification -continue ceftriaxone and vancomycin at this time and tailor antibiotics to the cultures once available -white blood cell count normal today -infectious disease consulted -right knee improving as well (2) Diabetes: Code(s): E11.9 - Type 2 diabetes mellitus without complications Status: Chronic Assessment and Plan: Last glucose 140 -continue sliding scale insulin and Januvia -A1c 8.5 (3) Hypertension: Code(s): I10 - Essential (primary) hypertension Status: Chronic Assessment and Plan: Last blood pressure 120/63 - Continue with Coreg and losartan (4) Hypothyroidism: Code(s): E03.9 - Hypothyroidism, unspecified Status: Chronic Assessment and Plan: Continue levothyroxine -TSH within normal limits (5) Hyperlipidemia: Code(s): E78.5 - Hyperlipidemia, unspecified Status: Chronic Assessment and Plan: Continue with atorvastatin (6) Psoriasis: Code(s): L40.9 - Psoriasis, unspecified Status: Chronic Assessment and Plan: Humira is on hold at this time. (7) Chronic back pain: Code(s): M54.9 - Dorsalgia, unspecified; G89.29 - Other chronic pain Status: Chronic Assessment and Plan: No complaints today (8) Generalized anxiety disorder: Code(s): F41.1 - Generalized anxiety disorder Status: Chronic Assessment and Plan: Chronic and stable -Continue with Zoloft Subjective Date/time seen: 06/22/21 10:04 Interval history: Pt is a 75-year-old female here for postop infection. Patient was seen today and states her pain is improving and is now bearable. She has no numbness or tingling to the hand or shoulder. She admits to some constipation but denies chest pain, shortness of breath, fevers, chills or diarrhea. She also mentions her right knee is better Exam Narrative: General: Well developed well nourished patient in NAD HEENT: normocephalic Neck: supple Neuro: Alert and oriented x4 CV:RRR Resp:CTA Abd: Soft, non distended. No pain to palpation. Positive bowel sounds Extremities: Right shoulder wrapped with multiple layers of gauze with a drain currently without any discharge. Pulses and sensation intact. Right knee with to cm area of erythema, much improved. No warmth or discharge Objective Data Vital Signs Vital Signs: Vital Signs - 24 hr 06/21/21 12:37 06/21/21 12:50 06/21/21 13:05 Temperature 97.1 F L Pulse Rate 80 71 70 Respiratory Rate 20 20 16 Blood Pressure 124/69 123/62 119/60 Pulse Oximetry 97 97 93 06/21/21 13:20 06/21/21 13:34 06/21/21 13:45 Temperature Pulse Rate 69 70 69 Respiratory Rate 16 16 14 Blood Pressure 118/57 L 114/63 110/59 L Pulse Oximetry 95 91 96 06/21/21 14:14 06/21/21 14:20 06/21/21 14:50 Temperature 98.0 F 97.5 F L 97.9 F Pulse Rate 65 72 67 Respiratory Rate 14 18 18 Blood Pressure 117/57 L 122/65 122/65 Pulse Oximetry 97 100 97 06/21/21 15:26 06/21/21 16:00 06/21/21 20:00 Temperature 98.4 F 98.4 F Pulse Rate 79 79 77 Respiratory Rate 18 18 18 Blood Pressure 112/64 112/64 Pulse Oximetry 94 94 96 06/21/21 21:11 06/22/21 00:28 06/22/21 04:10 Temperature 97 F L 97 F L 97.8 F Pulse Rate 77 72 70 Respiratory Rate 18 16 18 Blood Pressure 140/63 104/48 L 122/65 Pulse Oximetry 96 97 96 06/22/21 07:56 Temperature 96.1 F L Pulse Rate 63 Respiratory Rate 16 Blood Pressure 120/63 Pulse Oximetry 96 Intake/Ou
[2021-06-22] MEDS: carvediloL 6.25 MG TABLET PO (10:46)
[2021-06-22 12:16] LABS: Glucose Point of Care 152 mg/dl (65-105)
--- NOTE | 2021-06-22 12:21 | PM.PNORT ---
Progress Note: A&P Assessment and Plan (1) Deep postoperative wound infection: Code(s): T81.42XA - Infection following a procedure, deep incisional surgical site, initial encounter Status: Acute Assessment and Plan: Patient is POD #1 Irrigation and debridement right shoulder deep wound with removal of deep implanted hardware plate, and screws. States she is feeling 50% better. Pain has decreased. Wearing sling. No drainage from drain. May remove. Patient states dressing feels wet. Dressing change today. Patient lives at home with her that she cares for. She states she does not want to go home until she is feeling significantly better. Patient is improving. We discussed the risks of non-union or fracture displacement since removing hardware. She may do passive ROM exercises but should not lift, pull, or push with right arm. Will need to remove sutures 2 weeks post op. Cultures are pending. Continue antibiotics. Subjective Subjective Date/Time Seen: 06/22/21 12:21 Patient is Day 1 post Irrigation and debridement right shoulder deep wound with removal of deep implanted hardware plate, and screws. Patient states she is feeling 50% better. Notes decreased pain. Sling is bothering her and she has been removing it at rest in bed. No other complaints at this time. No numbness or tingling in her fingers. Notes her bandage feels wet and that there is no drainage from her drain. Review of Systems Review of Systems: All systems reviewed & are unremarkable except as noted in HPI and below Exam Narrative: Overweight 75 y/o female. No acute distress. Alert and oriented. Wearing sling and intact dressings. No visible drainage on dressing. No drainage in drain. Good ROM of elbow and wrist. Distal pulses palpable. Light touch sensation intact. Good capillary refill. Objective Data Vital Signs Vital Signs: Vital Signs - 24 hr 06/21/21 12:37 06/21/21 12:50 06/21/21 13:05 Temperature 97.1 F L Pulse Rate 80 71 70 Respiratory Rate 20 20 16 Blood Pressure 124/69 123/62 119/60 Pulse Oximetry 97 97 93 06/21/21 13:20 06/21/21 13:34 06/21/21 13:45 Temperature Pulse Rate 69 70 69 Respiratory Rate 16 16 14 Blood Pressure 118/57 L 114/63 110/59 L Pulse Oximetry 95 91 96 06/21/21 14:14 06/21/21 14:20 06/21/21 14:50 Temperature 98.0 F 97.5 F L 97.9 F Pulse Rate 65 72 67 Respiratory Rate 14 18 18 Blood Pressure 117/57 L 122/65 122/65 Pulse Oximetry 97 100 97 06/21/21 15:26 06/21/21 16:00 06/21/21 20:00 Temperature 98.4 F 98.4 F Pulse Rate 79 79 77 Respiratory Rate 18 18 18 Blood Pressure 112/64 112/64 Pulse Oximetry 94 94 96 06/21/21 21:11 06/22/21 00:28 06/22/21 04:10 Temperature 97 F L 97 F L 97.8 F Pulse Rate 77 72 70 Respiratory Rate 18 16 18 Blood Pressure 140/63 104/48 L 122/65 Pulse Oximetry 96 97 96 06/22/21 07:56 06/22/21 10:46 Temperature 96.1 F L Pulse Rate 63 64 Respiratory Rate 16 Blood Pressure 120/63 Pulse Oximetry 96 Intake/Output Intake/Output: Intake & Output 06/19/21 06/20/21 06/21/21 06/22/21 23:59 23:59 23:59 23:59 Intake Total 970 2230 860 Output Total 3250 200 Balance 970 -1020 660 Meds/Results Medications: Active Medications Generic Name Dose Route Start Last Admin Trade Name Freq PRN Reason Stop Dose Admin Hydrocodone Bitart/Acetaminophen 1 tab 06/21/21 15:10 06/21/21 23:46 Hydrocodone/Acetaminophen (*Crx) 5-325 Mg Tablet PO 1 tab Q6H PRN Administration PAIN RATED 4-6 Atorvastatin Calcium 80 mg 06/21/21 09:00 06/22/21 08:36 Atorvastatin 40 Mg Tablet PO 80 mg DAILY CRISTY Administration Carvedilol 6.25 mg 06/21/21 09:00 06/22/21 10:46 Carvedilol 6.25 Mg Tablet PO 6.25 mg DAILY CRISTY Administration Dextrose 12.5 gm 06/21/21 16:22 Dextrose 50% 25 Gm/50 Ml Syringe IV PUSH PRN PRN Hypoglycemia Protocol Docusate Sodium 100 mg 06/21/21 17:00 06/22/21 08:33 Docu
--- NOTE | 2021-06-22 13:05 | PM.PNORT ---
Progress Note: A&P Assessment and Plan (1) Deep postoperative wound infection: Code(s): T81.42XA - Infection following a procedure, deep incisional surgical site, initial encounter Status: Acute (2) Fracture of proximal end of right humerus: Qualifiers: Encounter type: initial encounter Fracture type: closed Fracture morphology: other fracture Fracture alignment: displaced Qualified Code(s): S42.291A - Other displaced fracture of upper end of right humerus, initial encounter for closed fracture Code(s): S42.201A - Unspecified fracture of upper end of right humerus, initial encounter for closed fracture Status: Acute Assessment and Plan: Patient feeling much better. Dressing intact. No drainage. Afebrile. Hemovac without drainage. Ok to d/c drain. May use the hand for light activity only. Discharge planning in progress. Anticipate discharge to home. Subjective Subjective Date/Time Seen: 06/22/21 13:05 Objective Data Vital Signs Vital Signs: Vital Signs - 24 hr 06/21/21 13:20 06/21/21 13:34 06/21/21 13:45 Temperature Pulse Rate 69 70 69 Respiratory Rate 16 16 14 Blood Pressure 118/57 L 114/63 110/59 L Pulse Oximetry 95 91 96 06/21/21 14:14 06/21/21 14:20 06/21/21 14:50 Temperature 36.7 C 36.4 C L 36.6 C Pulse Rate 65 72 67 Respiratory Rate 14 18 18 Blood Pressure 117/57 L 122/65 122/65 Pulse Oximetry 97 100 97 06/21/21 15:26 06/21/21 16:00 06/21/21 20:00 Temperature 36.9 C 36.9 C Pulse Rate 79 79 77 Respiratory Rate 18 18 18 Blood Pressure 112/64 112/64 Pulse Oximetry 94 94 96 06/21/21 21:11 06/22/21 00:28 06/22/21 04:10 Temperature 36.1 C L 36.1 C L 36.6 C Pulse Rate 77 72 70 Respiratory Rate 18 16 18 Blood Pressure 140/63 104/48 L 122/65 Pulse Oximetry 96 97 96 06/22/21 07:56 06/22/21 10:46 06/22/21 12:00 Temperature 35.6 C L 35.7 C L Pulse Rate 63 64 69 Respiratory Rate 16 20 Blood Pressure 120/63 116/63 Pulse Oximetry 96 95 Intake/Output Intake/Output: Intake & Output 06/19/21 06/20/21 06/21/21 06/22/21 23:59 23:59 23:59 23:59 Intake Total 970 2230 1340 Output Total 3250 200 Balance 970 -1020 1140 Meds/Results Medications: Active Medications Generic Name Dose Route Start Last Admin Trade Name Freq PRN Reason Stop Dose Admin Hydrocodone Bitart/Acetaminophen 1 tab 06/21/21 15:10 06/21/21 23:46 Hydrocodone/Acetaminophen (*Crx) 5-325 Mg Tablet PO 1 tab Q6H PRN Administration PAIN RATED 4-6 Atorvastatin Calcium 80 mg 06/21/21 09:00 06/22/21 08:36 Atorvastatin 40 Mg Tablet PO 80 mg DAILY CRISTY Administration Carvedilol 6.25 mg 06/21/21 09:00 06/22/21 10:46 Carvedilol 6.25 Mg Tablet PO 6.25 mg DAILY CRISTY Administration Dextrose 12.5 gm 06/21/21 16:22 Dextrose 50% 25 Gm/50 Ml Syringe IV PUSH PRN PRN Hypoglycemia Protocol Docusate Sodium 100 mg 06/21/21 17:00 06/22/21 08:33 Docusate Sodium 100 Mg Capsule PO 100 mg BID CRISTY Administration Fluticasone Propionate 1 spray 06/21/21 09:00 06/22/21 08:34 Fluticasone Propionate 0.05% Na Spr 16 Gm Btl (*Bkc) NASAL 1 spray DAILY CRISTY Administration Gabapentin 300 mg 06/20/21 17:00 06/22/21 08:35 Gabapentin 300 Mg Capsule PO 300 mg BID CRISTY Administration Glucagon 1 mg 06/21/21 16:22 Glucagon For Inj 1 Mg Vial IM PRN PRN Hypoglycemia Protocol Glucose 15 gm 06/21/21 16:22 Glucose Oral Gel 15 Gm Of Glucse In 37.5 Gm Tube PO PRN PRN Hypoglycemia Protocol Ceftriaxone Sodium/Dextrose 1 gm in 50 mls @ 100 mls/hr 06/20/21 14:00 06/21/21 15:24 Rocephin 1 Gm/D5w 50 Ml IVPB 100 mls/hr Q24H CRISTY Infusion Vancomycin HCl 1,250 mg in 250 mls @ 200 mls/hr 06/21/21 07:00 06/22/21 02:55 Vancomycin 1,250 Mg/D5w 250 Ml IVPB Infused Q18H CRISTY Infusion Dextrose 1,000 mls @ 100 mls/hr 06/21/21 16:22 Dextrose 5% 1,000 Ml IVPB PRN
--- NOTE | 2021-06-22 14:04 | WPDANESPN ---
Anes - Prog Note Post-Op Date/Time: 06/22/21 14:04 Cardiovascular status: normal Respiratory status: normal Airway patency: baseline Mental status: baseline Post-Op hydration status: normal Vital Signs: Last Vital Signs Temp 35.7 C L 06/22/21 12:00 Pulse 69 06/22/21 12:00 Resp 20 06/22/21 12:00 BP 116/63 06/22/21 12:00 Pulse Ox 95 06/22/21 12:00 Pain Score (VAS): 0 I/O: Intake & Output 06/21/21 06/22/21 06/22/21 23:59 07:59 15:59 Intake Total 483 054 9652 Output Total 2150 200 300 Balance -1910 300 940 Laboratory Tests 06/22/21 05:42 06/22/21 05:42 06/21/21 06/21/21 06/22/21 16:44 20:22 05:42 WBC 10.0 RBC 3.60 L Hgb 9.6 L Hct 30.6 L MCV 85.0 MCH 26.7 MCHC 31.4 L RDW 13.2 Plt Count 410 H MPV 9.9 Immature Gran % (Auto) 1.0 H Neut % (Auto) 68.3 Lymph % (Auto) 20.6 [place] % (Auto) 8.7 H Eos % (Auto) 0.9 Baso % (Auto) 0.5 Lymph # (Auto) 2.05 [place] # (Auto) 0.9 H Eos # (Auto) 0.1 Baso # (Auto) 0.1 Abs Immat Gran (auto) 0.10 H Absolute Neuts (auto) 6.8 H Absolute Nucleated RBC 0.0 Nucleated RBC % 0.0 Sodium Potassium Chloride Carbon Dioxide Anion Gap BUN Creatinine Estim Creat Clear Calc Estimated GFR Glucose POC Capillary Glucose 238 H 225 H Calcium Magnesium Total Bilirubin Direct Bilirubin AST ALT Alkaline Phosphatase Total Protein Albumin 06/22/21 06/22/21 06/22/21 05:42 07:42 11:54 WBC RBC Hgb Hct MCV MCH MCHC RDW Plt Count MPV Immature Gran % (Auto) Neut % (Auto) Lymph % (Auto) [place] % (Auto) Eos % (Auto) Baso % (Auto) Lymph # (Auto) [place] # (Auto) Eos # (Auto) Baso # (Auto) Abs Immat Gran (auto) Absolute Neuts (auto) Absolute Nucleated RBC Nucleated RBC % Sodium 137 Potassium 4.0 Chloride 104 Carbon Dioxide 26 Anion Gap 7 L BUN 9 Creatinine 0.60 L Estim Creat Clear Calc 69 Estimated GFR > 60 Glucose 159 H POC Capillary Glucose 140 H 152 H Calcium 8.8 Magnesium 1.8 Total Bilirubin 0.3 Direct Bilirubin 0.0 AST 25 ALT 27 Alkaline Phosphatase 297 H Total Protein 7.0 Albumin 3.1 L Microbiology 06/21/21 11:29 Other Fungal Culture - Preliminary 06/21/21 11:29 Shoulder Right Anaerobic Culture - Preliminary 06/20/21 12:56 Blood Blood Culture - Preliminary 06/20/21 12:57 Blood Blood Culture - Preliminary Post-procedural complaints: none Patient Feedback: Patient satisfied with anesthetic care.
--- NOTE | 2021-06-22 15:27 | WPDINFPN2 ---
Progress Note: A&P Assessment and Plan (1) Deep postoperative wound infection: Code(s): T81.42XA - Infection following a procedure, deep incisional surgical site, initial encounter Status: Acute Assessment and Plan: 1. SSI R upper arm 2. Humerus facture 3. Psoriasis, on Humira, last dose 06/18. Her ongoing treatment predisposed to this infection REC Ctx and Vanc #3. F/U intraoperative cultures and proceed accordingly. No Humira until infection is cleared. Subjective Date/time seen: 06/22/21 15:27 Interval history: feeling better, numbness resolved Exam Narrative: afebrile Const: General: no acute distress Skin: General skin exam: normal color and no rashes or lesions noted Extrem: Right upper extremity: normal to inspection and shoulder/upper arm (dressing dry and intact); no edema Objective Data Vital Signs Vital Signs: Vital Signs - 24 hr 06/21/21 16:00 06/21/21 20:00 06/21/21 21:11 Temperature 36.9 C 36.1 C L Pulse Rate 79 77 77 Respiratory Rate 18 18 18 Blood Pressure 112/64 140/63 Pulse Oximetry 94 96 96 06/22/21 00:28 06/22/21 04:10 06/22/21 07:56 Temperature 36.1 C L 36.6 C 35.6 C L Pulse Rate 72 70 63 Respiratory Rate 16 18 16 Blood Pressure 104/48 L 122/65 120/63 Pulse Oximetry 97 96 96 06/22/21 10:46 06/22/21 12:00 Temperature 35.7 C L Pulse Rate 64 69 Respiratory Rate 20 Blood Pressure 116/63 Pulse Oximetry 95 Intake/Output Intake/Output: Intake & Output 06/19/21 06/20/21 06/21/21 06/22/21 23:59 23:59 23:59 23:59 Intake Total 970 2280 1740 Output Total 3250 500 Balance 970 -970 1240 Meds/Results Medications: Active Medications Generic Name Dose Route Start Last Admin Trade Name Freq PRN Reason Stop Dose Admin Hydrocodone Bitart/Acetaminophen 1 tab 06/21/21 15:10 06/21/21 23:46 Hydrocodone/Acetaminophen (*Crx) 5-325 Mg Tablet PO 1 tab Q6H PRN Administration PAIN RATED 4-6 Atorvastatin Calcium 80 mg 06/21/21 09:00 06/22/21 08:36 Atorvastatin 40 Mg Tablet PO 80 mg DAILY CRISTY Administration Carvedilol 6.25 mg 06/21/21 09:00 06/22/21 10:46 Carvedilol 6.25 Mg Tablet PO 6.25 mg DAILY CRISTY Administration Dextrose 12.5 gm 06/21/21 16:22 Dextrose 50% 25 Gm/50 Ml Syringe IV PUSH PRN PRN Hypoglycemia Protocol Docusate Sodium 100 mg 06/21/21 17:00 06/22/21 08:33 Docusate Sodium 100 Mg Capsule PO 100 mg BID CRISTY Administration Fluticasone Propionate 1 spray 06/21/21 09:00 06/22/21 08:34 Fluticasone Propionate 0.05% Na Spr 16 Gm Btl (*Bkc) NASAL 1 spray DAILY CRISTY Administration Gabapentin 300 mg 06/20/21 17:00 06/22/21 08:35 Gabapentin 300 Mg Capsule PO 300 mg BID CRISTY Administration Glucagon 1 mg 06/21/21 16:22 Glucagon For Inj 1 Mg Vial IM PRN PRN Hypoglycemia Protocol Glucose 15 gm 06/21/21 16:22 Glucose Oral Gel 15 Gm Of Glucse In 37.5 Gm Tube PO PRN PRN Hypoglycemia Protocol Ceftriaxone Sodium/Dextrose 1 gm in 50 mls @ 100 mls/hr 06/20/21 14:00 06/22/21 13:15 Rocephin 1 Gm/D5w 50 Ml IVPB 100 mls/hr Q24H CRISTY Administration Vancomycin HCl 1,250 mg in 250 mls @ 200 mls/hr 06/21/21 07:00 06/22/21 02:55 Vancomycin 1,250 Mg/D5w 250 Ml IVPB Infused Q18H CRISTY Infusion Dextrose 1,000 mls @ 100 mls/hr 06/21/21 16:22 Dextrose 5% 1,000 Ml IVPB PRN PRN Hypoglycemia Protocol Insulin Aspart 2 - 5 units 06/21/21 17:00 06/22/21 11:56 Insulin Aspart (*Bkc) 100 Units/Ml SUB-Q Not Given TIDWM CRISTY Protocol Levothyroxine Sodium 125 mcg 06/21/21 06:30 06/22/21 06:04 Levothyroxine Sodium 125 Mcg Tablet PO 125 mcg DAILY@0630 CRISTY Administration Losartan Potassium 50 mg 06/21/21 09:00 06/22/21 08:36 Losartan Potassium 50 Mg Tablet PO 50 mg DAILY CRISTY Administration Magnesium Hydroxide 30 ml 06/21/21 14:41 Magnesium Hydroxide Susp 30 Ml Udc PO BID
--- NOTE | 2021-06-22 15:52 | PC.NURSE ---
Patient has follow up appt with Dr. Dodson on Jul 04, 2021 @ 11:00.
[2021-06-22 16:56] LABS: Glucose Point of Care 166 mg/dl (65-105)
[2021-06-22 20:39] LABS: Vancomycin Trough 9.8 ug/mL (10.0-20.0)
[2021-06-22 20:47] LABS: Glucose Point of Care 158 mg/dl (65-105)
[2021-06-22] MEDS: HYDROcodone/acetaminophen (*CRX) 5-325 MG TABLET 1 TAB PO (21:46)
[2021-06-22] MEDS: SENNOSIDES 8.6 MG TABLET PO (21:47)
[2021-06-23 05:20] VITALS: BP 131/57; PULSE 72; RESP 18; TEMP 36.5; O2SAT 97
[2021-06-23] MEDS: LEVOTHYROXINE SODIUM 125 MCG TABLET PO (05:32)
[2021-06-23] MEDS: HYDROcodone/acetaminophen (*CRX) 5-325 MG TABLET 1 TAB PO ×3 (05:36→20:32)
[2021-06-23 06:27] LABS: Hematocrit 32.6 % (37.0-47.0); Hemoglobin 9.9 g/dL (12.0-15.0); Mean Corpuscular HGB Conc 30.4 g/dl (32-36); Mean Corpuscular Hemoglobin 26.8 pg (26-34); Mean Corpuscular Volume 88.3 fl (80-100); Mean Platelet Volume 9.7 fl (7.4-10.4); Platelet Count Result 412 k/mm3 (150-375); Red Blood Count 3.69 M/mm3 (4.2-5.4); Red Cell Distribution Width 13.4 % (11.5-14.5); White Blood Count 7.9 K/mm3 (4.5-10.0)
[2021-06-23 06:40] LABS: Anion Gap 8 mmol/L (8-16); Blood Urea Nitrogen 8 mg/dL (7-17); Calcium 9.5 mg/dL (8.4-10.2); Carbon Dioxide 27 mmol/L (22-30); Chloride 103 mmol/L (98-107); Estimated CRCL calculation 69 ml/min; Estimated Glomerular Filt Rate > 60; Glucose 156 mg/dL (65-110); Potassium 4.1 mmol/L (3.4-5.0); Sodium 138 mmol/L (137-145)
[2021-06-23 07:44] LABS: Glucose Point of Care 134 mg/dl (65-105)
[2021-06-23] MEDS: LOSARTAN POTASSIUM 50 MG TABLET PO (07:59)
[2021-06-23 08:00] VITALS: PULSE 72
[2021-06-23] MEDS: SERTRALINE HCL 50 MG TABLET 100 MG PO (08:00)
[2021-06-23] MEDS: THERAPEUTIC MULTIVITAMINS/MINERALS TAB (*BKC) 1 TABLET PO (08:00)
[2021-06-23] MEDS: DOCUSATE SODIUM 100 MG CAPSULE PO ×2 (08:00→16:08)
[2021-06-23] MEDS: GABAPENTIN 300 MG CAPSULE PO ×2 (08:00→16:07)
[2021-06-23] MEDS: ATORVASTATIN 40 MG TABLET 80 MG PO (08:00)
[2021-06-23] MEDS: carvediloL 6.25 MG TABLET PO (08:00)
[2021-06-23] MEDS: FLUTICASONE PROPIONATE 0.05% NA SPR 16 GM BTL (*BKC) 1 SPRAY NASAL (08:00)
[2021-06-23] MEDS: polyethylene glycoL 3350 17 GM POWD.PACK PO (08:01)
[2021-06-23 12:09] LABS: Glucose Point of Care 158 mg/dl (65-105)
--- NOTE | 2021-06-23 13:59 | PM.IMPN ---
Progress Note: A&P Assessment and Plan (1) Deep postoperative wound infection: Code(s): T81.42XA - Infection following a procedure, deep incisional surgical site, initial encounter Status: Acute Assessment and Plan: Patient presented to an outside area hospital and found to have a wound infection -patient went to the OR 06/21/[address] Dodson for hardware removal with I&D -Gram stain showing Staph aureus with no sensitivities at this time -continue ceftriaxone and vancomycin and tailor antibiotics to sensitivities when they are ready -white blood cell count normal today -infectious disease consulted -right knee improving as well (2) Diabetes: Code(s): E11.9 - Type 2 diabetes mellitus without complications Status: Chronic Assessment and Plan: Last glucose 158 -continue sliding scale insulin and Januvia -A1c 8.5 (3) Hypertension: Code(s): I10 - Essential (primary) hypertension Status: Chronic Assessment and Plan: Last blood pressure 131/57 - Continue with Coreg and losartan (4) Hypothyroidism: Code(s): E03.9 - Hypothyroidism, unspecified Status: Chronic Assessment and Plan: Continue levothyroxine (5) Hyperlipidemia: Code(s): E78.5 - Hyperlipidemia, unspecified Status: Chronic Assessment and Plan: Continue with atorvastatin (6) Psoriasis: Code(s): L40.9 - Psoriasis, unspecified Status: Chronic Assessment and Plan: Humira is on hold at this time. (7) Chronic back pain: Code(s): M54.9 - Dorsalgia, unspecified; G89.29 - Other chronic pain Status: Chronic Assessment and Plan: No complaints today (8) Generalized anxiety disorder: Code(s): F41.1 - Generalized anxiety disorder Status: Chronic Assessment and Plan: Chronic and stable -Continue with Zoloft Subjective Date/time seen: 06/23/21 13:59 Interval history: Pt is a 75-year-old female here for postop infection. Patient was seen today and states her pain is improving and she is doing well but not at baseline. She has no numbness or tingling to the hand or shoulder. She admits to some constipation (improving) but denies chest pain, shortness of breath, fevers, chills or diarrhea. She also mentions her right knee is better. Exam Narrative: General: Well developed well nourished patient in NAD HEENT: normocephalic Neck: supple Neuro: Alert and oriented x4 CV:RRR Resp:CTA Abd: Soft, non distended. No pain to palpation. Positive bowel sounds Extremities: Right shoulder wrapped with multiple layers of gauze with a drain currently without any discharge. Pulses and sensation intact. Right knee with resolved erythema. No warmth or discharge Objective Data Vital Signs Vital Signs: Vital Signs - 24 hr 06/22/21 21:35 06/22/21 22:07 06/23/21 05:20 Temperature 98.4 F 97.7 F Pulse Rate 67 72 Respiratory Rate 18 18 Blood Pressure 125/72 131/57 L Pulse Oximetry 97 90 97 06/23/21 08:00 Temperature Pulse Rate 72 Respiratory Rate Blood Pressure Pulse Oximetry Intake/Output Intake/Output: Intake & Output 06/20/21 06/21/21 06/22/21 06/23/21 23:59 23:59 23:59 23:59 Intake Total 970 2280 2920 480 Output Total 3250 1200 600 Balance 970 -970 1720 -120 Meds/Results Medications: Active Medications Generic Name Dose Route Start Last Admin Trade Name Freq PRN Reason Stop Dose Admin Hydrocodone Bitart/Acetaminophen 1 tab 06/21/21 15:10 06/23/21 05:36 Hydrocodone/Acetaminophen (*Crx) 5-325 Mg Tablet PO 1 tab Q6H PRN Administration PAIN RATED 4-6 Atorvastatin Calcium 80 mg 06/21/21 09:00 06/23/21 08:00 Atorvastatin 40 Mg Tablet PO 80 mg DAILY CRISTY Administration Carvedilol 6.25 mg 06/21/21 09:00 06/23/21 08:00 Carvedilol 6.25 Mg Tablet PO 6.25 mg DAILY CRISTY Administration Dextrose 12.5 gm
[2021-06-23 15:15] VITALS: BP 109/51; PULSE 74; RESP 18; TEMP 36.9; O2SAT 95
[2021-06-23 16:47] LABS: Glucose Point of Care 199 mg/dl (65-105)
--- NOTE | 2021-06-23 17:16 | PM.PNORT ---
Progress Note: A&P Assessment and Plan (1) Deep postoperative wound infection: Code(s): T81.42XA - Infection following a procedure, deep incisional surgical site, initial encounter <JAKY Vides - Last Filed: 06/23/21 17:21> Status: Acute <JAKY Vides - Last Filed: 06/23/21 17:21> Assessment and Plan: Patient is POD #2 Irrigation and debridement right shoulder deep wound with removal of deep implanted hardware plate, and screws. She continues to improve. Patient lives at home with her that she cares for. She states she does not want to go home until she is feeling significantly better. Plan for discharge home. Afrebile. Patient is improving. We discussed the risks of non-union or fracture displacement since removing hardware. She may do passive ROM exercises but should not lift, pull, or push with right arm. Will need to remove sutures 2 weeks post op. Cultures show Staph Aureus. Awaiting sensitivities. Continue antibiotics. Discharge planning in progress. Anticipate discharge to home. <JAKY Vides - Last Filed: 06/23/21 17:21> Additional Plan Patient seen and examined. Continues to feel better. The wound is well approximated with modest drainage. Minimal residual erythema. Discussed above care plan. Awaiting culture sensitivities. <Andre Dodson MD - Last Filed: 06/23/21 17:47> Subjective Subjective Date/Time Seen: 06/23/21 17:16 Patient is POD #2 Irrigation and debridement right shoulder deep wound with removal of deep implanted hardware plate, and screws. Patient states she continues to feel better. Not 100 % yet. Notes decreased pain. No other complaints at this time. No numbness or tingling in her fingers. Drain removed. <JAKY Vides - Last Filed: 06/23/21 17:21> Review of Systems Review of Systems: All systems reviewed & are unremarkable except as noted in HPI and below <JAKY Vides - Last Filed: 06/23/21 17:21> Exam Narrative: Overweight 75 y/o female. No acute distress. Alert and oriented. Wearing sling and intact dressings. Slight drainage from wound. Good ROM of elbow and wrist. Distal pulses palpable. Light touch sensation intact. Good capillary refill. <JAKY Vides - Last Filed: 06/23/21 17:21> Objective Data Vital Signs Vital Signs: Vital Signs - 24 hr 06/22/21 21:35 06/22/21 22:07 06/23/21 05:20 Temperature 98.4 F 97.7 F Pulse Rate 67 72 Respiratory Rate 18 18 Blood Pressure 125/72 131/57 L Pulse Oximetry 97 90 97 06/23/21 08:00 06/23/21 15:15 Temperature 98.4 F Pulse Rate 72 74 Respiratory Rate 18 Blood Pressure 109/51 L Pulse Oximetry 95 <JAKY Vides - Last Filed: 06/23/21 17:21> Intake/Output Intake/Output: Intake & Output 06/20/21 06/21/21 06/22/21 06/23/21 23:59 23:59 23:59 23:59 Intake Total 970 2280 2920 480 Output Total 3250 1200 600 Balance 970 -970 1720 -120 <JAKY Vides - Last Filed: 06/23/21 17:21> Meds/Results Medications: Active Medications Generic Name Dose Route Start Last Admin Trade Name Freq PRN Reason Stop Dose Admin Hydrocodone Bitart/Acetaminophen 1 tab 06/21/21 15:10 06/23/21 14:10 Hydrocodone/Acetaminophen (*Crx) 5-325 Mg Tablet PO 1 tab Q6H PRN Administration PAIN RATED 4-6 Atorvastatin Calcium 80 mg 06/21/21 09:00 06/23/21 08:00 Atorvastatin 40 Mg Tablet PO 80 mg DAILY CRISTY Administration Carvedilol 6.25 mg 06/21/21 09:00 06/23/21 08:00 Carvedilol 6.25 Mg Tablet PO 6.25 mg DAILY CRISTY Administration Dextrose 12.5 gm 06/21/21 16:22 Dextrose 50% 25 Gm/50 Ml Syringe IV PUSH PRN PRN Hypoglycemia Protocol Docusate Sodium 100 mg 06/21/21 17:00 06/23/21 16:08 Docusate Sodium 100 Mg Capsule PO 100 mg BID CRISTY Administration Fluticasone Propionate 1 spray 06/21/21 09:00 06/23/21 08:00
[2021-06-23 20:00] VITALS: BP 105/61; PULSE 66; RESP 16; TEMP 37.1; O2SAT 93
[2021-06-23 21:14] LABS: Glucose Point of Care 136 mg/dl (65-105)
[2021-06-24] VITALS (7 sets, daily range): BP systolic 106–147; BP diastolic 54–80; PULSE 65–79; RESP 16–18; TEMP 36.3–36.8; O2SAT 94–98
[2021-06-24] MEDS: LEVOTHYROXINE SODIUM 125 MCG TABLET PO (05:59)
[2021-06-24] MEDS: HYDROcodone/acetaminophen (*CRX) 5-325 MG TABLET 1 TAB PO ×3 (06:00→18:16)
[2021-06-24 06:18] LABS: Basophils Absolute Auto 0.1 K/mm3 (0.0-0.1); Basophils Percent Auto 1.4 % (0.2-1.2); Eosinophils Absolute Auto 0.3 K/mm3 (0-0.3); Eosinophils Percent Auto 3.3 % (0-4.4); Hematocrit 30.5 % (37.0-47.0); Hemoglobin 9.4 g/dL (12.0-15.0); Immature Granulocyte Absolute 0.15 K/mm3 (0.00-0.031); Lymphocytes Absolute Auto 2.09 K/mm3 (0.9-3.2); Lymphocytes Percent Auto 27.4 % (18.3-44.2); Mean Corpuscular HGB Conc 30.8 g/dl (32-36); Mean Corpuscular Hemoglobin 26.9 pg (26-34); Mean Corpuscular Volume 87.1 fl (80-100); Mean Platelet Volume 9.8 fl (7.4-10.4); Monocytes Absolute Auto 0.7 K/mm3 (0.1-0.6); Monocytes Percent Auto 9.6 % (2.6-8.5); Neutrophils Absolute Auto 4.3 K/mm3 (1.3-6.7); Neutrophils Percent Auto 56.3 % (45.5-73.1); Platelet Count Result 376 k/mm3 (150-375); Red Cell Distribution Width 13.6 % (11.5-14.5); White Blood Count 7.6 K/mm3 (4.5-10.0)
[2021-06-24 08:09] LABS: Glucose Point of Care 155 mg/dl (65-105)
[2021-06-24] MEDS: ATORVASTATIN 40 MG TABLET 80 MG PO (08:45)
[2021-06-24] MEDS: THERAPEUTIC MULTIVITAMINS/MINERALS TAB (*BKC) 1 TABLET PO (08:45)
[2021-06-24] MEDS: SERTRALINE HCL 50 MG TABLET 100 MG PO (08:45)
[2021-06-24] MEDS: GABAPENTIN 300 MG CAPSULE PO ×2 (08:46→17:11)
[2021-06-24] MEDS: DOCUSATE SODIUM 100 MG CAPSULE PO ×2 (08:46→17:11)
[2021-06-24] MEDS: carvediloL 6.25 MG TABLET PO (08:46)
[2021-06-24] MEDS: FLUTICASONE PROPIONATE 0.05% NA SPR 16 GM BTL (*BKC) 1 SPRAY NASAL (08:46)
[2021-06-24] MEDS: LOSARTAN POTASSIUM 50 MG TABLET PO (08:47)
--- NOTE | 2021-06-24 11:10 | PM.PNORT ---
Progress Note: A&P Assessment and Plan (1) Deep postoperative wound infection: Code(s): T81.42XA - Infection following a procedure, deep incisional surgical site, initial encounter Status: Acute Assessment and Plan: Patient is POD #3 Irrigation and debridement right shoulder deep wound with removal of deep implanted hardware plate, and screws. She continues to improve. Patient lives at home with her that she cares for. She states she does not want to go home until she is feeling significantly better. Plan for discharge home. Afrebile. Patient is improving. We discussed the risks of non-union or fracture displacement since removing hardware. She may do passive ROM exercises but should not lift, pull, or push with right arm. Will need to remove sutures 2 weeks post op. Appointment made and patient notified. The wound is well approximated with modest drainage. Minimal residual erythema. Cultures show Staph Aureus. Awaiting sensitivities. Continue antibiotics. Discharge planning in progress. Anticipate discharge to home. Subjective Subjective Date/Time Seen: 06/24/21 11:10 Patient is POD #3 Irrigation and debridement right shoulder deep wound with removal of deep implanted hardware plate, and screws. Patient states she continues to feel better. Not 100 % yet. Notes some more pain today. Some tingling in her fingers. No other complaints at this time. Review of Systems Review of Systems: All systems reviewed & are unremarkable except as noted in HPI and below Exam Narrative: Overweight 75 y/o female. No acute distress. Alert and oriented. Wearing sling and intact dressings. Slight drainage from wound on dressing. Good ROM of elbow and wrist. Distal pulses palpable. Light touch sensation intact. Good capillary refill. Objective Data Vital Signs Vital Signs: Vital Signs - 24 hr 06/23/21 15:15 06/23/21 20:00 06/24/21 00:00 Temperature 98.4 F 98.7 F 97.8 F Pulse Rate 74 66 72 Respiratory Rate 18 16 18 Blood Pressure 109/51 L 105/61 131/58 L Pulse Oximetry 95 93 97 06/24/21 04:00 06/24/21 08:46 Temperature 97.7 F Pulse Rate 79 67 Respiratory Rate 18 Blood Pressure 145/68 H Pulse Oximetry 96 Intake/Output Intake/Output: Intake & Output 06/21/21 06/22/21 06/23/21 06/24/21 23:59 23:59 23:59 23:59 Intake Total 2280 2920 1520 Output Total 3250 1200 1000 Balance -970 1720 520 Meds/Results Medications: Active Medications Generic Name Dose Route Start Last Admin Trade Name Freq PRN Reason Stop Dose Admin Hydrocodone Bitart/Acetaminophen 1 tab 06/21/21 15:10 06/24/21 06:00 Hydrocodone/Acetaminophen (*Crx) 5-325 Mg Tablet PO 1 tab Q6H PRN Administration PAIN RATED 4-6 Atorvastatin Calcium 80 mg 06/21/21 09:00 06/24/21 08:45 Atorvastatin 40 Mg Tablet PO 80 mg DAILY CRISTY Administration Carvedilol 6.25 mg 06/21/21 09:00 06/24/21 08:46 Carvedilol 6.25 Mg Tablet PO 6.25 mg DAILY CRISTY Administration Dextrose 12.5 gm 06/21/21 16:22 Dextrose 50% 25 Gm/50 Ml Syringe IV PUSH PRN PRN Hypoglycemia Protocol Docusate Sodium 100 mg 06/21/21 17:00 06/24/21 08:46 Docusate Sodium 100 Mg Capsule PO 100 mg BID CRISTY Administration Fluticasone Propionate 1 spray 06/21/21 09:00 06/24/21 08:46 Fluticasone Propionate 0.05% Na Spr 16 Gm Btl (*Bkc) NASAL 1 spray DAILY CRISTY Administration Gabapentin 300 mg 06/20/21 17:00 06/24/21 08:46 Gabapentin 300 Mg Capsule PO 300 mg BID CRISTY Administration Glucagon 1 mg 06/21/21 16:22 Glucagon For Inj 1 Mg Vial IM PRN PRN Hypoglycemia Protocol Glucose 15 gm 06/21/21 16:22 Glucose Oral Gel 15 Gm Of Glucse In 37.5 Gm Tube PO PRN PRN Hypoglycemia Protocol Ceftriaxone Sodium/Dextrose 1 gm in 50 mls @ 100 mls/hr 06/20/21 14:00 06/23/21 13:06 Rocephin 1 Gm/D5w 50 Ml IVPB 100 mls/hr Q24H CRISTY Administration Vancomyc
[2021-06-24 11:57] LABS: Glucose Point of Care 157 mg/dl (65-105)
--- NOTE | 2021-06-24 14:57 | PM.IMPN ---
Progress Note: A&P Assessment and Plan (1) Deep postoperative wound infection: Code(s): T81.42XA - Infection following a procedure, deep incisional surgical site, initial encounter Status: Acute Assessment and Plan: Patient presented to an outside area hospital and found to have a wound infection -patient went to the OR 06/21/[address] Dodson for hardware removal with I&D -OR cultures growing MRSA -continue vancomycin, await for Infectious Disease recommendations. Stop ceftriaxone -white blood cell count normal today -right knee improving as well (2) Diabetes: Code(s): E11.9 - Type 2 diabetes mellitus without complications Status: Chronic Assessment and Plan: Last glucose 157 -continue sliding scale insulin and Januvia -A1c 8.5 (3) Hypertension: Code(s): I10 - Essential (primary) hypertension Status: Chronic Assessment and Plan: Last blood pressure 108/54 - Continue with Coreg and losartan (4) Hypothyroidism: Code(s): E03.9 - Hypothyroidism, unspecified Status: Chronic Assessment and Plan: Continue levothyroxine (5) Hyperlipidemia: Code(s): E78.5 - Hyperlipidemia, unspecified Status: Chronic Assessment and Plan: Continue with atorvastatin (6) Psoriasis: Code(s): L40.9 - Psoriasis, unspecified Status: Chronic Assessment and Plan: Humira is on hold at this time. (7) Chronic back pain: Code(s): M54.9 - Dorsalgia, unspecified; G89.29 - Other chronic pain Status: Chronic Assessment and Plan: No complaints today (8) Generalized anxiety disorder: Code(s): F41.1 - Generalized anxiety disorder Status: Chronic Assessment and Plan: Chronic and stable -Continue with Zoloft Subjective Date/time seen: 06/24/21 14:57 Interval history: Pt is a 75-year-old female here for postop infection. Patient was seen today and she states her pain is a little worse today than it was yesterday. She says it is a more of a stabbing pain that starts from her shoulder and goes down to her wrist. She has no numbness the area. She denies chest pain, shortness of breath, fevers, chills or diarrhea. She also mentions her right knee is better. Exam Narrative: General: Well developed well nourished patient in NAD HEENT: normocephalic Neck: supple Neuro: Alert and oriented x4 CV:RRR Resp:CTA Abd: Soft, non distended. No pain to palpation. Positive bowel sounds Extremities: Right shoulder incision clean and dry without any dehiscence, discharge or erythema. Pulses to the radial artery intact. Extremity warm with sensation intact. Right knee with resolved erythema. Objective Data Vital Signs Vital Signs: Vital Signs - 24 hr 06/23/21 15:15 06/23/21 20:00 06/24/21 00:00 Temperature 98.4 F 98.7 F 97.8 F Pulse Rate 74 66 72 Respiratory Rate 18 16 18 Blood Pressure 109/51 L 105/61 131/58 L Pulse Oximetry 95 93 97 06/24/21 04:00 06/24/21 08:46 06/24/21 08:50 Temperature 97.7 F 98.2 F Pulse Rate 79 67 75 Respiratory Rate 18 16 Blood Pressure 145/68 H 106/60 Pulse Oximetry 96 98 06/24/21 12:00 Temperature 98.0 F Pulse Rate 74 Respiratory Rate 18 Blood Pressure 108/54 L Pulse Oximetry 94 Intake/Output Intake/Output: Intake & Output 06/21/21 06/22/21 06/23/21 06/24/21 23:59 23:59 23:59 23:59 Intake Total 2280 2920 1570 480 Output Total 3250 1200 1000 Balance -970 1720 570 480 Meds/Results Medications: Active Medications Generic Name Dose Route Start Last Admin Trade Name Freq PRN Reason Stop Dose Admin Hydrocodone Bitart/Acetaminophen 1 tab 06/21/21 15:10 06/24/21 12:49 Hydrocodone/Acetaminophen (*Crx) 5-325 Mg Tablet PO 1 tab Q6H PRN Administration PAIN RATED 4-6 Atorvastatin Calcium 80 mg 06/21/21 09:00 06/24/21 08:45 Atorvastatin 40 Mg Tablet PO 80 mg DAILY SC
[2021-06-24 16:51] LABS: Glucose Point of Care 149 mg/dl (65-105)
--- NOTE | 2021-06-24 19:44 | WPDINFPN2 ---
Progress Note: A&P Additional Plan 1. 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 Wound was inspected. Currently on vancomycin day 5. Anticipating prolonged therapy. 2. Right humerus fracture status post surgical repair. 3. Psoriasis on Humira. Last dose was given on 06/18/2021. Hold Humira while being treated for current infection. Subjective Date/time seen: 06/24/21 19:44 Exam Neck: Neck: normal visual inspection Resp: Effort & Inspection: normal respiratory effort Auscultation: clear to auscultation bilaterally Cardio: Rhythm: regular rhythm Heart sounds: S1 normal heart sound present and S2 normal heart sound present GI: Inspection: normal to inspection GI Palp: No abdominal tenderness, No Abdominal aortic bruit present, No Soft to palpation, No Firmness to palpation present (GI), No Tenderness to palpation present (GI), No Guarding due to palpation present (GI), No Rigid due to palpation, No No hepatosplenomegaly present, No Hepatosplenomegaly present, No Hepatomegaly present, No Splenomegaly present, No Hernia present, No Palpable mass present, No Pulsatile mass present, No Aortic enlargement present, No Ascites present, No Carnett's sign positive, No Rebound tenderness present, No Bladder palpation abnormal and No Other GI palpation findings present Skin: Other: Right shoulder surgical site sutures in place. Minimal bloody drainage from the lower aspect of incision. No surrounding erythema or necrosis Neuro: General: oriented to person Cranial nerves: Yes CN's II-XII intact bilaterally Cognition (Neuro): normal cognition Speech: normal speech Extrem: General: normal to inspection Right upper extremity: normal to inspection Left upper extremity: normal to inspection Right lower extremity: normal to inspection Left lower extremity: normal to inspection Psych: Speech and movement: Normal speech and movement present Affect: normal affect Attitude: cooperative Objective Data Vital Signs Vital Signs: Vital Signs - 24 hr 06/23/21 20:00 06/24/21 00:00 06/24/21 04:00 Temperature 37.1 C 36.6 C 36.5 C Pulse Rate 66 72 79 Respiratory Rate 16 18 18 Blood Pressure 105/61 131/58 L 145/68 H Pulse Oximetry 93 97 96 06/24/21 08:46 06/24/21 08:50 06/24/21 12:00 Temperature 36.8 C 36.7 C Pulse Rate 67 75 74 Respiratory Rate 16 18 Blood Pressure 106/60 108/54 L Pulse Oximetry 98 94 06/24/21 16:30 Temperature 36.6 C Pulse Rate 65 Respiratory Rate 16 Blood Pressure 135/60 Pulse Oximetry 97 Intake/Output Intake/Output: Intake & Output 06/21/21 06/22/21 06/23/21 06/24/21 23:59 23:59 23:59 23:59 Intake Total 2280 2920 1570 1290 Output Total 3250 1200 1000 1300 Balance -970 1720 570 -10 Meds/Results Medications: Active Medications Generic Name Dose Route Start Last Admin Trade Name Freq PRN Reason Stop Dose Admin Hydrocodone Bitart/Acetaminophen 1 tab 06/21/21 15:10 06/24/21 18:16 Hydrocodone/Acetaminophen (*Crx) 5-325 Mg Tablet PO 1 tab Q6H PRN Administration PAIN RATED 4-6 Atorvastatin Calcium 80 mg 06/21/21 09:00 06/24/21 08:45 Atorvastatin 40 Mg Tablet PO 80 mg DAILY CRISTY Administration Carvedilol 6.25 mg 06/21/21 09:00 06/24/21 08:46 Carvedilol 6.25 Mg Tablet PO 6.25 mg DAILY CRISTY Administration Dextrose 12.5 gm 06/21/21 16:22 Dextrose 50% 25 Gm/50 Ml Syringe IV PUSH PRN PRN Hypoglycemia Protocol Docusate Sodium 100 mg 06/21/21 17:00 06/24/21 17:11 Docusate Sodium 100 Mg Capsule PO 100 mg BID CRISTY Administration Fluticasone Propionate 1 spray 06/21/21 09:00 06/24/21 08:46 Fluticasone Propionate 0.05% Na Spr 16 Gm Btl (*Bkc) NASAL 1 spray DAILY CRISTY Administration Gabapentin 300 mg 06/20/21 17:00 06/24/21 17:11 Gabapentin 300 Mg Capsule PO 300 mg BID CRISTY Administration Glucagon 1 mg 06/21/21 16:22 Glucagon For Inj 1 Mg Vial IM PRN PRN Hypoglycemia Protocol Glu
[2021-06-24] MEDS: SENNOSIDES 8.6 MG TABLET PO (20:39)
[2021-06-24 21:35] LABS: Glucose Point of Care 145 mg/dl (65-105)
[2021-06-25] VITALS (7 sets, daily range): BP systolic 111–151; BP diastolic 62–88; PULSE 66–80; RESP 17–20; TEMP 35.7–36.9; O2SAT 95–99
[2021-06-25] MEDS: HYDROcodone/acetaminophen (*CRX) 5-325 MG TABLET 1 TAB PO ×3 (03:37→16:26)
[2021-06-25] MEDS: LEVOTHYROXINE SODIUM 125 MCG TABLET PO (05:49)
[2021-06-25 06:10] LABS: Hematocrit 31.9 % (37.0-47.0); Hemoglobin 9.6 g/dL (12.0-15.0); Mean Corpuscular HGB Conc 30.1 g/dl (32-36); Mean Corpuscular Hemoglobin 26.8 pg (26-34); Mean Corpuscular Volume 89.1 fl (80-100); Mean Platelet Volume 9.9 fl (7.4-10.4); Platelet Count Result 340 k/mm3 (150-375); Red Blood Count 3.58 M/mm3 (4.2-5.4); Red Cell Distribution Width 13.7 % (11.5-14.5); White Blood Count 7.4 K/mm3 (4.5-10.0)
[2021-06-25 06:23] LABS: Anion Gap 6 mmol/L (8-16); Blood Urea Nitrogen 7 mg/dL (7-17); CRP 5.3 mg/dL (<1.0); Calcium 9.2 mg/dL (8.4-10.2); Carbon Dioxide 28 mmol/L (22-30); Chloride 104 mmol/L (98-107); Estimated CRCL calculation 81 ml/min; Estimated Glomerular Filt Rate > 60; Glucose 151 mg/dL (65-110); Potassium 3.8 mmol/L (3.4-5.0); Sodium 138 mmol/L (137-145)
[2021-06-25 08:25] LABS: Glucose Point of Care 126 mg/dl (65-105)
[2021-06-25] MEDS: THERAPEUTIC MULTIVITAMINS/MINERALS TAB (*BKC) 1 TABLET PO (09:56)
[2021-06-25] MEDS: ATORVASTATIN 40 MG TABLET 80 MG PO (09:57)
[2021-06-25] MEDS: SERTRALINE HCL 50 MG TABLET 100 MG PO (09:57)
[2021-06-25] MEDS: DOCUSATE SODIUM 100 MG CAPSULE PO ×2 (09:58→16:27)
[2021-06-25] MEDS: LOSARTAN POTASSIUM 50 MG TABLET PO (10:01)
[2021-06-25] MEDS: polyethylene glycoL 3350 17 GM POWD.PACK PO (10:01)
[2021-06-25] MEDS: GABAPENTIN 300 MG CAPSULE PO ×2 (10:02→16:27)
[2021-06-25] MEDS: FLUTICASONE PROPIONATE 0.05% NA SPR 16 GM BTL (*BKC) 1 SPRAY NASAL (10:02)
[2021-06-25] MEDS: carvediloL 6.25 MG TABLET PO (10:02)
--- NOTE | 2021-06-25 10:17 | PM.PNORT ---
Progress Note: A&P Assessment and Plan (1) Deep postoperative wound infection: Code(s): T81.42XA - Infection following a procedure, deep incisional surgical site, initial encounter Status: Acute Assessment and Plan: Patient is POD #4 Irrigation and debridement right shoulder deep wound with removal of deep implanted hardware plate, and screws. She continues to improve. Patient lives at home with her that she cares for. She states she does not want to go home until she is feeling significantly better. Plan for discharge home. Afrebile. Patient is improving. We discussed the risks of non-union or fracture displacement since removing hardware. She may do passive ROM exercises but should not lift, pull, or push with right arm. Will need to remove sutures 2 weeks post op. Appointment made and patient notified. The wound is well approximated with modest drainage. Minimal residual erythema. Cultures show MRSA. Patient notified. Awaiting recommendations from infectious disease. Appreciate recommendations. Discharge planning in progress. Anticipate discharge to home. Subjective Subjective Date/Time Seen: 06/25/21 10:17 Patient is POD #4 Irrigation and debridement right shoulder deep wound with removal of deep implanted hardware plate, and screws. Patient states she continues to feel better. Not 100 % yet. Notes some more pain today. Tingling has resolved with movement of her elbow. No other complaints at this time. Review of Systems Review of Systems: All systems reviewed & are unremarkable except as noted in HPI and below Exam Narrative: Overweight 75 y/o female. No acute distress. Alert and oriented. Wearing sling and intact dressings. Slight drainage from wound on dressing. No erythema at wound. Good ROM of elbow and wrist. Distal pulses palpable. Light touch sensation intact. Good capillary refill. Objective Data Vital Signs Vital Signs: Vital Signs - 24 hr 06/24/21 12:00 06/24/21 16:30 06/24/21 20:18 Temperature 98.0 F 97.8 F 97.4 F L Pulse Rate 74 65 70 Respiratory Rate 18 16 18 Blood Pressure 108/54 L 135/60 147/80 H Pulse Oximetry 94 97 97 06/25/21 00:23 06/25/21 05:51 06/25/21 10:02 Temperature 97.8 F 97 F L Pulse Rate 72 68 80 Respiratory Rate 18 17 Blood Pressure 145/72 H 151/86 H Pulse Oximetry 98 97 Intake/Output Intake/Output: Intake & Output 06/22/21 06/23/21 06/24/21 06/25/21 23:59 23:59 23:59 23:59 Intake Total 2920 1570 1390 840 Output Total 1200 1000 2200 900 Balance 1720 570 -810 -60 Meds/Results Medications: Active Medications Generic Name Dose Route Start Last Admin Trade Name Freq PRN Reason Stop Dose Admin Hydrocodone Bitart/Acetaminophen 1 tab 06/21/21 15:10 06/25/21 10:09 Hydrocodone/Acetaminophen (*Crx) 5-325 Mg Tablet PO 1 tab Q6H PRN Administration PAIN RATED 4-6 Atorvastatin Calcium 80 mg 06/21/21 09:00 06/25/21 09:57 Atorvastatin 40 Mg Tablet PO 80 mg DAILY CRISTY Administration Carvedilol 6.25 mg 06/21/21 09:00 06/25/21 10:02 Carvedilol 6.25 Mg Tablet PO 6.25 mg DAILY CRISTY Administration Dextrose 12.5 gm 06/21/21 16:22 Dextrose 50% 25 Gm/50 Ml Syringe IV PUSH PRN PRN Hypoglycemia Protocol Docusate Sodium 100 mg 06/21/21 17:00 06/25/21 09:58 Docusate Sodium 100 Mg Capsule PO 100 mg BID CRISTY Administration Fluticasone Propionate 1 spray 06/21/21 09:00 06/25/21 10:02 Fluticasone Propionate 0.05% Na Spr 16 Gm Btl (*Bkc) NASAL 1 spray DAILY CRISTY Administration Gabapentin 300 mg 06/20/21 17:00 06/25/21 10:02 Gabapentin 300 Mg Capsule PO 300 mg BID CRISTY Administration Glucagon 1 mg 06/21/21 16:22 Glucagon For Inj 1 Mg Vial IM PRN PRN Hypoglycemia Protocol Glucose 15 gm 06/21/21 16:22 Glucose Oral Gel 15 Gm Of Glucse In 37.5 Gm Tube PO PRN PRN Hypoglycemia Protocol Vancomycin HCl 1,250 mg in 250 mls
[2021-06-25 12:17] LABS: Glucose Point of Care 148 mg/dl (65-105)
--- NOTE | 2021-06-25 12:19 | PM.IMPN ---
Progress Note: A&P Assessment and Plan (1) Deep postoperative wound infection: Code(s): T81.42XA - Infection following a procedure, deep incisional surgical site, initial encounter Status: Acute Assessment and Plan: Patient presented to an outside area hospital and found to have a wound infection -patient went to the OR 06/21/[address] Dodson for hardware removal with I&D -OR cultures growing MRSA, will need 6 weeks total of IV vanc (will likely complete one week here) -white blood cell count normal today -right knee improving as well (2) Diabetes: Code(s): E11.9 - Type 2 diabetes mellitus without complications Status: Chronic Assessment and Plan: Last glucose 148 -continue sliding scale insulin and Januvia -A1c 8.5 (3) Hypertension: Code(s): I10 - Essential (primary) hypertension Status: Chronic Assessment and Plan: Last blood pressure 128/72 - Continue with Coreg and losartan (4) Hypothyroidism: Code(s): E03.9 - Hypothyroidism, unspecified Status: Chronic Assessment and Plan: Continue levothyroxine (5) Hyperlipidemia: Code(s): E78.5 - Hyperlipidemia, unspecified Status: Chronic Assessment and Plan: Continue with atorvastatin (6) Psoriasis: Code(s): L40.9 - Psoriasis, unspecified Status: Chronic Assessment and Plan: Humira is on hold at this time. Pt does not want to restart this. She is going to follow up with her watch technician (7) Chronic back pain: Code(s): M54.9 - Dorsalgia, unspecified; G89.29 - Other chronic pain Status: Chronic Assessment and Plan: No complaints today (8) Generalized anxiety disorder: Code(s): F41.1 - Generalized anxiety disorder Status: Chronic Assessment and Plan: Chronic and stable -Continue with Zoloft Subjective Date/time seen: 06/25/21 12:19 Interval history: Pt is a 75-year-old female here for postop infection. Patient was seen today and is doing better than yesterday. The pain is tolerable today and she has no numbness the area. She denies chest pain, shortness of breath, fevers, chills or diarrhea. She also mentions her right knee is better. Exam Narrative: General: Well developed well nourished patient in NAD HEENT: normocephalic Neck: supple Neuro: Alert and oriented x4 CV:RRR Resp:CTA Abd: Soft, non distended. No pain to palpation. Positive bowel sounds Extremities: Right shoulder incision clean and dry without any dehiscence, discharge or erythema. Pulses to the radial artery intact. Extremity warm with sensation intact. Right knee with resolved erythema. Objective Data Vital Signs Vital Signs: Vital Signs - 24 hr 06/24/21 16:30 06/24/21 20:18 06/25/21 00:23 Temperature 97.8 F 97.4 F L 97.8 F Pulse Rate 65 70 72 Respiratory Rate 16 18 18 Blood Pressure 135/60 147/80 H 145/72 H Pulse Oximetry 97 97 98 06/25/21 05:51 06/25/21 10:02 06/25/21 11:18 Temperature 97 F L 98.5 F Pulse Rate 68 80 79 Respiratory Rate 17 20 Blood Pressure 151/86 H 128/72 Pulse Oximetry 97 99 Intake/Output Intake/Output: Intake & Output 06/22/21 06/23/21 06/24/21 06/25/21 23:59 23:59 23:59 23:59 Intake Total 2920 1570 1390 840 Output Total 1200 1000 2200 900 Balance 1720 570 -810 -60 Meds/Results Medications: Active Medications Generic Name Dose Route Start Last Admin Trade Name Freq PRN Reason Stop Dose Admin Hydrocodone Bitart/Acetaminophen 1 tab 06/21/21 15:10 06/25/21 10:09 Hydrocodone/Acetaminophen (*Crx) 5-325 Mg Tablet PO 1 tab Q6H PRN Administration PAIN RATED 4-6 Atorvastatin Calcium 80 mg 06/21/21 09:00 06/25/21 09:57 Atorvastatin 40 Mg Tablet PO 80 mg DAILY CRISTY Administration Carvedilol 6.25 mg 06/21/21 09:00 06/25/21 10:02 Carvedilol 6.25 Mg Tablet PO 6.25 mg DAILY CRISTY Administration De
[2021-06-25 16:41] LABS: Glucose Point of Care 172 mg/dl (65-105)
[2021-06-25 19:51] LABS: Vancomycin Trough 6.3 ug/mL (10.0-20.0)
[2021-06-25] MEDS: oxyCODONE HCL (*CRX) 5 MG TAB IR 10 MG PO (20:34)
[2021-06-25 20:58] LABS: Glucose Point of Care 157 mg/dl (65-105)
[2021-06-26] MEDS: HYDROcodone/acetaminophen (*CRX) 5-325 MG TABLET 1 TAB PO ×4 (01:28→20:29)
[2021-06-26 03:54] VITALS: BP 128/66; PULSE 65; RESP 17; TEMP 36.1; O2SAT 96
[2021-06-26 05:54] LABS: Basophils Absolute Auto 0.1 K/mm3 (0.0-0.1); Basophils Percent Auto 1.3 % (0.2-1.2); Eosinophils Absolute Auto 0.2 K/mm3 (0-0.3); Hematocrit 30.3 % (37.0-47.0); Hemoglobin 9.4 g/dL (12.0-15.0); Immature Granulocyte Absolute 0.13 K/mm3 (0.00-0.031); Immature Granulocyte Percent A 1.6 % (0-0.5); Lymphocytes Percent Auto 30.3 % (18.3-44.2); Mean Corpuscular Hemoglobin 26.8 pg (26-34); Mean Corpuscular Volume 86.3 fl (80-100); Mean Platelet Volume 9.7 fl (7.4-10.4); Monocytes Absolute Auto 0.8 K/mm3 (0.1-0.6); Monocytes Percent Auto 10.2 % (2.6-8.5); Neutrophils Absolute Auto 4.2 K/mm3 (1.3-6.7); Neutrophils Percent Auto 53.6 % (45.5-73.1); Platelet Count Result 336 k/mm3 (150-375); Red Blood Count 3.51 M/mm3 (4.2-5.4); Red Cell Distribution Width 13.8 % (11.5-14.5); White Blood Count 7.9 K/mm3 (4.5-10.0)
[2021-06-26 06:10] LABS: Anion Gap 7 mmol/L (8-16); Blood Urea Nitrogen 9 mg/dL (7-17); CRP 4.4 mg/dL (<1.0); Calcium 9.1 mg/dL (8.4-10.2); Carbon Dioxide 27 mmol/L (22-30); Chloride 104 mmol/L (98-107); Estimated CRCL calculation 81 ml/min; Estimated Glomerular Filt Rate > 60; Glucose 142 mg/dL (65-110); Potassium 3.9 mmol/L (3.4-5.0); Sodium 138 mmol/L (137-145)
[2021-06-26] MEDS: LEVOTHYROXINE SODIUM 125 MCG TABLET PO (06:18)
[2021-06-26] MEDS: DOCUSATE SODIUM 100 MG CAPSULE PO ×2 (09:00→17:30)
[2021-06-26] MEDS: ATORVASTATIN 40 MG TABLET 80 MG PO (09:00)
[2021-06-26 09:01] VITALS: PULSE 80
[2021-06-26] MEDS: THERAPEUTIC MULTIVITAMINS/MINERALS TAB (*BKC) 1 TABLET PO (09:01)
[2021-06-26] MEDS: GABAPENTIN 300 MG CAPSULE PO ×2 (09:01→17:30)
[2021-06-26] MEDS: FLUTICASONE PROPIONATE 0.05% NA SPR 16 GM BTL (*BKC) 1 SPRAY NASAL (09:01)
[2021-06-26] MEDS: SERTRALINE HCL 50 MG TABLET 100 MG PO (09:01)
[2021-06-26] MEDS: carvediloL 6.25 MG TABLET PO (09:01)
[2021-06-26] MEDS: polyethylene glycoL 3350 17 GM POWD.PACK PO (09:02)
[2021-06-26] MEDS: LOSARTAN POTASSIUM 50 MG TABLET PO (09:03)
[2021-06-26 09:11] LABS: Glucose Point of Care 128 mg/dl (65-105)
--- NOTE | 2021-06-26 10:32 | PM.IMPN ---
Progress Note: A&P Assessment and Plan (1) Deep postoperative wound infection: Code(s): T81.42XA - Infection following a procedure, deep incisional surgical site, initial encounter Status: Acute Assessment and Plan: Patient presented to an outside area hospital and found to have a wound infection -patient went to the OR 06/21/[address] Dodson for hardware removal with I&D -OR cultures growing MRSA, will need 6 weeks total of IV vanc (will likely complete one week here) -white blood cell count normal today -right knee improving as well -plan for PICC line today and IV antibiotic treatment tomorrow. Hopefully she can discharge tomorrow if she continues to improve. -add lovenox to SCDs for dvt prevention. pt has been walking the halls and in the room without issue. No need for PT and OT. (2) Diabetes: Code(s): E11.9 - Type 2 diabetes mellitus without complications Status: Chronic Assessment and Plan: Last glucose 128 -continue sliding scale insulin and Januvia -A1c 8.5 (3) Hypertension: Code(s): I10 - Essential (primary) hypertension Status: Chronic Assessment and Plan: Last blood pressure 128/66 - Continue with Coreg and losartan (4) Hypothyroidism: Code(s): E03.9 - Hypothyroidism, unspecified Status: Chronic Assessment and Plan: Continue levothyroxine (5) Hyperlipidemia: Code(s): E78.5 - Hyperlipidemia, unspecified Status: Chronic Assessment and Plan: Continue with atorvastatin (6) Psoriasis: Code(s): L40.9 - Psoriasis, unspecified Status: Chronic Assessment and Plan: Humira is on hold at this time. Pt does not want to restart this. 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 Patient was seen today and is doing a little better every day but is still not back to her baseline. The pain is tolerable today and she has no numbness the area. She denies chest pain, shortness of breath, fevers, chills or diarrhea. She had a bowel movement today and she is eating and drinking well. She says she has been walking around the room and walking around the halls Exam Narrative: General: Well developed well nourished patient in NAD HEENT: normocephalic Neck: supple Neuro: Alert and oriented x4 CV:RRR Resp:CTA Abd: Soft, non distended. No pain to palpation. Positive bowel sounds Extremities: Right shoulder incision clean and dry without any dehiscence, discharge or erythema. Pulses to the radial artery intact. Extremity warm with sensation intact. Right knee with resolved erythema. Objective Data Vital Signs Vital Signs: Vital Signs - 24 hr 06/25/21 11:18 06/25/21 14:00 06/25/21 16:00 Temperature 98.5 F 97 F L 97.4 F L Pulse Rate 79 67 66 Respiratory Rate 20 20 Blood Pressure 128/72 111/88 124/72 Pulse Oximetry 99 95 96 06/25/21 20:00 06/26/21 03:54 06/26/21 09:01 Temperature 96.2 F L 96.9 F L Pulse Rate 72 65 80 Respiratory Rate 17 17 Blood Pressure 126/62 128/66 Pulse Oximetry 96 96 Intake/Output Intake/Output: Intake & Output 06/23/21 06/24/21 06/25/21 06/26/21 23:59 23:59 23:59 23:59 Intake Total 1570 1390 1570 480 Output Total 1000 2200 1800 700 Balance 570 -810 -230 -220 Meds/Results Medications: Active Medications Generic Name Dose Route Start Last Admin Trade Name Freq PRN Reason Stop Dose Admin Hydrocodone Bitart/Acetaminophen 1 tab 06/21/21
--- NOTE | 2021-06-26 11:16 | WPDINFPN2 ---
Progress Note: A&P Additional Plan 1. 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 Wound was inspected. Currently on vancomycin day 7. Trough goal 15-20. Anticipating 6 weeks of vancomycin therapy. 2. Right humerus fracture status post surgical repair. 3. Psoriasis on Humira. Last dose was given on 06/18/2021. Hold Humira while being treated for current infection. Subjective Date/time seen: 06/26/21 11:16 Exam Neck: Neck: normal visual inspection Lymphatic: no lymphadenopathy noted Resp: Effort & Inspection: normal respiratory effort Auscultation: clear to auscultation bilaterally Cardio: Rate: regular rate Rhythm: regular rhythm Heart sounds: S1 normal heart sound present and S2 normal heart sound present GI: Inspection: normal to inspection GI Palp: No abdominal tenderness, No Abdominal aortic bruit present, No Soft to palpation, No Firmness to palpation present (GI), No Tenderness to palpation present (GI), No Guarding due to palpation present (GI), No Rigid due to palpation, No No hepatosplenomegaly present, No Hepatosplenomegaly present, No Hepatomegaly present, No Splenomegaly present, No Hernia present, No Palpable mass present, No Pulsatile mass present, No Aortic enlargement present, No Ascites present, No Carnett's sign positive, No Rebound tenderness present, No Bladder palpation abnormal and No Other GI palpation findings present Auscultation: normal bowel sounds Skin: Other: Right shoulder surgical site wound is clean. No drainage or erythema. Sutures in place. Extrem: Right upper extremity: normal to inspection Left upper extremity: normal to inspection Right lower extremity: normal to inspection Left lower extremity: normal to inspection Psych: Appearance: grossly normal Mental Status: mental status grossly normal Affect: normal affect Attitude: cooperative Thought process: Normal thought process present Objective Data Vital Signs Vital Signs: Vital Signs - 24 hr 06/25/21 11:18 06/25/21 14:00 06/25/21 16:00 Temperature 36.9 C 36.1 C L 36.3 C L Pulse Rate 79 67 66 Respiratory Rate 20 20 Blood Pressure 128/72 111/88 124/72 Pulse Oximetry 99 95 96 06/25/21 20:00 06/26/21 03:54 06/26/21 09:01 Temperature 35.7 C L 36.1 C L Pulse Rate 72 65 80 Respiratory Rate 17 17 Blood Pressure 126/62 128/66 Pulse Oximetry 96 96 Intake/Output Intake/Output: Intake & Output 06/23/21 06/24/21 06/25/21 06/26/21 23:59 23:59 23:59 23:59 Intake Total 1570 1390 1570 480 Output Total 1000 2200 1800 700 Balance 570 -810 -230 -220 Meds/Results Medications: Active Medications Generic Name Dose Route Start Last Admin Trade Name Freq PRN Reason Stop Dose Admin Hydrocodone Bitart/Acetaminophen 1 tab 06/21/21 15:10 06/26/21 07:19 Hydrocodone/Acetaminophen (*Crx) 5-325 Mg Tablet PO 1 tab Q6H PRN Administration PAIN RATED 4-6 Atorvastatin Calcium 80 mg 06/21/21 09:00 06/26/21 09:00 Atorvastatin 40 Mg Tablet PO 80 mg DAILY CRISTY Administration Carvedilol 6.25 mg 06/21/21 09:00 06/26/21 09:01 Carvedilol 6.25 Mg Tablet PO 6.25 mg DAILY CRISTY Administration Dextrose 12.5 gm 06/21/21 16:22 Dextrose 50% 25 Gm/50 Ml Syringe IV PUSH PRN PRN Hypoglycemia Protocol Docusate Sodium 100 mg 06/21/21 17:00 06/26/21 09:00 Docusate Sodium 100 Mg Capsule PO 100 mg BID CRISTY Administration Enoxaparin Sodium 40 mg 06/26/21 10:35 Enoxaparin 40 Mg/0.4 Ml Syringe SUB-Q DAILY CRISTY Fluticasone Propionate 1 spray 06/21/21 09:00 06/26/21 09:01 Fluticasone Propionate 0.05% Na Spr 16 Gm Btl (*Bkc) NASAL 1 spray DAILY CRISTY Administration Gabapentin 300 mg 06/20/21 17:00 06/26/21 09:01 Gabapentin 300 Mg Capsule PO 300 mg BID CRISTY Administration Glucagon 1 mg 06/21/21 16:22 Glucagon For Inj 1 Mg Vial IM PRN PRN Hypoglycemia Protocol Glucose 15 gm 06/21/21 16:22 Glucose Oral Gel 15 Gm Of Glucse In
[2021-06-26] MEDS: ENOXAPARIN 40 MG/0.4 ML SYRINGE SUB-Q (12:28)
[2021-06-26 12:41] LABS: Glucose Point of Care 135 mg/dl (65-105)
[2021-06-26 13:37] VITALS: BP 149/92; PULSE 78; TEMP 37; O2SAT 95
[2021-06-26 17:09] LABS: Glucose Point of Care 170 mg/dl (65-105)
[2021-06-26 21:45] VITALS: BP 149/90; PULSE 70; RESP 16; TEMP 36.1; O2SAT 95
[2021-06-26 22:43] LABS: Glucose Point of Care 164 mg/dl (65-105)
[2021-06-27 01:46] VITALS: BP 126/55; PULSE 69; RESP 16; TEMP 36.1; O2SAT 95
[2021-06-27 05:35] VITALS: BP 145/64; PULSE 66; RESP 16; TEMP 36.7; O2SAT 95
[2021-06-27] MEDS: HYDROcodone/acetaminophen (*CRX) 5-325 MG TABLET 1 TAB PO ×3 (05:38→22:03)
[2021-06-27] MEDS: LEVOTHYROXINE SODIUM 125 MCG TABLET PO (05:38)
[2021-06-27 06:06] LABS: Estimated CRCL calculation 69 ml/min; Estimated Glomerular Filt Rate > 60
[2021-06-27] MEDS: ENOXAPARIN 40 MG/0.4 ML SYRINGE SUB-Q (08:05)
[2021-06-27] MEDS: ATORVASTATIN 40 MG TABLET 80 MG PO (08:06)
[2021-06-27 08:07] VITALS: PULSE 64
[2021-06-27] MEDS: carvediloL 6.25 MG TABLET PO (08:07)
[2021-06-27] MEDS: GABAPENTIN 300 MG CAPSULE PO ×2 (08:07→18:33)
[2021-06-27] MEDS: FLUTICASONE PROPIONATE 0.05% NA SPR 16 GM BTL (*BKC) 1 SPRAY NASAL (08:07)
[2021-06-27] MEDS: SERTRALINE HCL 50 MG TABLET 100 MG PO (08:07)
[2021-06-27] MEDS: DOCUSATE SODIUM 100 MG CAPSULE PO ×2 (08:07→18:33)
[2021-06-27] MEDS: THERAPEUTIC MULTIVITAMINS/MINERALS TAB (*BKC) 1 TABLET PO (08:07)
[2021-06-27] MEDS: polyethylene glycoL 3350 17 GM POWD.PACK PO (08:08)
[2021-06-27] MEDS: LOSARTAN POTASSIUM 50 MG TABLET PO (08:08)
[2021-06-27 09:01] VITALS: BP 142/66; PULSE 63; RESP 18; TEMP 36.9; O2SAT 98
[2021-06-27 09:23] LABS: Glucose Point of Care 145 mg/dl (65-105)
[2021-06-27] MEDS: ALTEPLASE 2 MG VIAL (CATHFLO) IV PUSH (10:26)
--- NOTE | 2021-06-27 11:11 | PCNWS ---
Weekly nutritional screen. Patient is tolerating current diet with adequate intake. No weight loss reported. No nutritional needs at this time.
--- NOTE | 2021-06-27 11:46 | PM.IMPN ---
Progress Note: A&P Assessment and Plan (1) Deep postoperative wound infection: Code(s): T81.42XA - Infection following a procedure, deep incisional surgical site, initial encounter Status: Acute Assessment and Plan: Patient presented to an outside area hospital and found to have a wound infection -patient went to the OR 06/21/[address] Dodson for hardware removal with I&D -OR cultures growing MRSA, will need 6 weeks total of IV vanc (will have completed one week here) -white blood cell count normal today -right knee improving as well -Pt unable to get PICC line [facility] and they placed a midline. This might not be enough for 5 weeks of vanc. We can speak to YAMILA Burgess tomorrow about options or to see if she can place a PICC. IV infusion company was in the room today and was going to speak to the pt about IV abx at home and answer some of the questions she may have. She can be discharged once IV access has been established. -Continue lovenox to SCDs for dvt prevention. pt has been walking the halls and in the room without issue. No need for PT and OT. (2) Diabetes: Code(s): E11.9 - Type 2 diabetes mellitus without complications Status: Chronic Assessment and Plan: Last glucose 145 -continue sliding scale insulin and Januvia -A1c 8.5 (3) Hypertension: Code(s): I10 - Essential (primary) hypertension Status: Chronic Assessment and Plan: Last blood pressure 142/66 - Continue with Coreg and losartan (4) Hypothyroidism: Code(s): E03.9 - Hypothyroidism, unspecified Status: Chronic Assessment and Plan: Continue levothyroxine (5) Hyperlipidemia: Code(s): E78.5 - Hyperlipidemia, unspecified Status: Chronic Assessment and Plan: Continue with atorvastatin (6) Psoriasis: Code(s): L40.9 - Psoriasis, unspecified Status: Chronic Assessment and Plan: Humira is on hold at this time. Pt does not want to restart this. 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 Patient was seen today and is doing a little better every day. The pain is tolerable today. She denies chest pain, shortness of breath, fevers, chills or diarrhea. She says she has been walking around the room and walking around the halls. Exam Narrative: General: Well developed well nourished patient in NAD HEENT: normocephalic Neck: supple Neuro: Alert and oriented x4 CV:RRR Resp:CTA Abd: Soft, non distended. No pain to palpation. Positive bowel sounds Extremities: Right shoulder incision clean and dry without any dehiscence, discharge or erythema. Pulses to the radial artery intact. Extremity warm with sensation intact. Right knee with resolved erythema. Objective Data Vital Signs Vital Signs: Vital Signs - 24 hr 06/26/21 13:37 06/26/21 21:45 06/27/21 01:46 Temperature 98.6 F 97.0 F L 97.0 F L Pulse Rate 78 70 69 Respiratory Rate 16 16 Blood Pressure 149/92 H 149/90 H 126/55 L Pulse Oximetry 95 95 95 06/27/21 05:35 06/27/21 08:07 06/27/21 09:01 Temperature 98.1 F 98.5 F Pulse Rate 66 64 63 Respiratory Rate 16 18 Blood Pressure 145/64 H 142/66 H Pulse Oximetry 95 98 Intake/Output Intake/Output: Intake & Output 06/24/21 06/25/21 06/26/21 06/27/21 23:59 23:59 23:59 23:59 Intake Total 1390 1570 1220 740 Output Total 2200 1800 700 Balance -810 -230 520 740 Meds/Results Medications: Active Medications Gen
[2021-06-27 12:09] LABS: Glucose Point of Care 153 mg/dl (65-105)
--- NOTE | 2021-06-27 14:21 | PM.PNORT ---
Progress Note: A&P Assessment and Plan (1) Deep postoperative wound infection: Code(s): T81.42XA - Infection following a procedure, deep incisional surgical site, initial encounter Status: Acute Assessment and Plan: Patient is POD #6 Irrigation and debridement right shoulder deep wound with removal of deep implanted hardware plate, and screws. She continues to improve. Patient lives at home with her that she cares for. She states she does not want to go home until she is feeling significantly better. Plan for discharge home. Afrebile. Patient is improving. We discussed the risks of non-union or fracture displacement since removing hardware. She may do passive ROM exercises but should not lift, pull, or push with right arm. Will need to remove sutures 2 weeks post op. Appointment made and patient notified. The wound is well approximated with modest drainage. Minimal residual erythema. Cultures show MRSA. Will need 6 weeks total of IV antibiotics. Has had treatment for 1 week. Difficult to get PICC line. Discharge planning in progress. Anticipate discharge to home. Subjective Subjective Date/Time Seen: 06/27/21 14:21 Patient is POD #6 Irrigation and debridement right shoulder deep wound with removal of deep implanted hardware plate, and screws. Patient states she continues to feel better. Notes some more pain today. Tingling has resolved with movement of her elbow. Trouble getting her PICC line. No other complaints at this time. Afebrile. Review of Systems Review of Systems: All systems reviewed & are unremarkable except as noted in HPI and below Exam Narrative: Overweight 75 y/o female. No acute distress. Alert and oriented. Wearing sling and intact dressings. Slight drainage from wound on dressing. No erythema at wound. Good ROM of elbow and wrist. Distal pulses palpable. Light touch sensation intact. Good capillary refill. Objective Data Vital Signs Vital Signs: Vital Signs - 24 hr 06/26/21 21:45 06/27/21 01:46 06/27/21 05:35 Temperature 97.0 F L 97.0 F L 98.1 F Pulse Rate 70 69 66 Respiratory Rate 16 16 16 Blood Pressure 149/90 H 126/55 L 145/64 H Pulse Oximetry 95 95 95 06/27/21 08:07 06/27/21 09:01 Temperature 98.5 F Pulse Rate 64 63 Respiratory Rate 18 Blood Pressure 142/66 H Pulse Oximetry 98 Intake/Output Intake/Output: Intake & Output 06/24/21 06/25/21 06/26/21 06/27/21 23:59 23:59 23:59 23:59 Intake Total 1390 1570 1220 980 Output Total 2200 1800 700 Balance -810 -230 520 980 Meds/Results Medications: Active Medications Generic Name Dose Route Start Last Admin Trade Name Freq PRN Reason Stop Dose Admin Hydrocodone Bitart/Acetaminophen 1 tab 06/21/21 15:10 06/27/21 05:38 Hydrocodone/Acetaminophen (*Crx) 5-325 Mg Tablet PO 1 tab Q6H PRN Administration PAIN RATED 4-6 Alteplase, Recombinant 2 mg 06/27/21 09:20 06/27/21 10:26 Alteplase 2 Mg Vial (Cathflo) IV PUSH 2 mg ONCE PRN Administration Line Occlusion Atorvastatin Calcium 80 mg 06/21/21 09:00 06/27/21 08:06 Atorvastatin 40 Mg Tablet PO 80 mg DAILY CRISTY Administration Carvedilol 6.25 mg 06/21/21 09:00 06/27/21 08:07 Carvedilol 6.25 Mg Tablet PO 6.25 mg DAILY CRISTY Administration Dextrose 12.5 gm 06/21/21 16:22 Dextrose 50% 25 Gm/50 Ml Syringe IV PUSH PRN PRN Hypoglycemia Protocol Docusate Sodium 100 mg 06/21/21 17:00 06/27/21 08:07 Docusate Sodium 100 Mg Capsule PO 100 mg BID CRISTY Administration Enoxaparin Sodium 40 mg 06/26/21 10:35 06/27/21 08:05 Enoxaparin 40 Mg/0.4 Ml Syringe SUB-Q 40 mg DAILY CRISTY Administration Fluticasone Propionate 1 spray 06/21/21 09:00 06/27/21 08:07 Fluticasone Propionate 0.05% Na Spr 16 Gm Btl (*Bkc) NASAL 1 spray DAILY CRISTY Administration Gabapentin 300 mg 06/20/21 17:00 06/27/21 08:07 Gabapentin 300 Mg Capsule PO 300 mg BID CRISTY Administratio
[2021-06-27 14:53] LABS: Vancomycin Trough 11.6 ug/mL (10.0-20.0)
[2021-06-27 15:25] VITALS: BP 140/90; PULSE 86; RESP 18; TEMP 37.1; O2SAT 96
[2021-06-27 18:43] LABS: Glucose Point of Care 166 mg/dl (65-105)
[2021-06-27 19:43] VITALS: BP 129/54; PULSE 72; RESP 18; TEMP 36.6; O2SAT 97
[2021-06-27 20:47] LABS: Glucose Point of Care 220 mg/dl (65-105)
[2021-06-28] MEDS: HYDROcodone/acetaminophen (*CRX) 5-325 MG TABLET 1 TAB PO ×3 (04:20→23:11)
[2021-06-28 04:42] VITALS: PULSE 72; RESP 18; O2SAT 97
[2021-06-28 05:14] VITALS: BP 151/74; PULSE 67; RESP 18; TEMP 36.1; O2SAT 94
[2021-06-28] MEDS: LEVOTHYROXINE SODIUM 125 MCG TABLET PO (05:19)
[2021-06-28 05:33] LABS: Hematocrit 31.2 % (37.0-47.0); Hemoglobin 9.6 g/dL (12.0-15.0); Mean Corpuscular HGB Conc 30.8 g/dl (32-36); Mean Corpuscular Hemoglobin 27.1 pg (26-34); Mean Corpuscular Volume 88.1 fl (80-100); Mean Platelet Volume 10.3 fl (7.4-10.4); Platelet Count Result 230 k/mm3 (150-375); Red Blood Count 3.54 M/mm3 (4.2-5.4); Red Cell Distribution Width 13.9 % (11.5-14.5); White Blood Count 7.6 K/mm3 (4.5-10.0)
[2021-06-28 05:57] LABS: Anion Gap 6 mmol/L (8-16); Blood Urea Nitrogen 10 mg/dL (7-17); CRP 3.3 mg/dL (<1.0); Calcium 9.3 mg/dL (8.4-10.2); Carbon Dioxide 29 mmol/L (22-30); Chloride 103 mmol/L (98-107); Estimated CRCL calculation 69 ml/min; Estimated Glomerular Filt Rate > 60; Glucose 177 mg/dL (65-110); Potassium 3.9 mmol/L (3.4-5.0); Sodium 138 mmol/L (137-145)
[2021-06-28 08:04] VITALS: PULSE 72
[2021-06-28] MEDS: THERAPEUTIC MULTIVITAMINS/MINERALS TAB (*BKC) 1 TABLET PO (08:04)
[2021-06-28] MEDS: ATORVASTATIN 40 MG TABLET 80 MG PO (08:04)
[2021-06-28] MEDS: DOCUSATE SODIUM 100 MG CAPSULE PO ×2 (08:04→17:17)
[2021-06-28] MEDS: carvediloL 6.25 MG TABLET PO (08:04)
[2021-06-28] MEDS: GABAPENTIN 300 MG CAPSULE PO ×2 (08:05→17:17)
[2021-06-28] MEDS: FLUTICASONE PROPIONATE 0.05% NA SPR 16 GM BTL (*BKC) 1 SPRAY NASAL (08:05)
[2021-06-28] MEDS: ENOXAPARIN 40 MG/0.4 ML SYRINGE SUB-Q (08:05)
[2021-06-28] MEDS: SERTRALINE HCL 50 MG TABLET 100 MG PO (08:05)
[2021-06-28] MEDS: LOSARTAN POTASSIUM 50 MG TABLET PO (08:06)
[2021-06-28] MEDS: polyethylene glycoL 3350 17 GM POWD.PACK PO (08:07)
[2021-06-28 09:09] LABS: Glucose Point of Care 129 mg/dl (65-105)
[2021-06-28 12:00] VITALS: BP 143/68; PULSE 81; RESP 16; TEMP 36.9; O2SAT 98
[2021-06-28 12:40] LABS: Glucose Point of Care 167 mg/dl (65-105)
--- NOTE | 2021-06-28 14:31 | PM.CNGS ---
Assessment and Plan Assessment and plan (1) Deep postoperative wound infection: Code(s): T81.42XA - Infection following a procedure, deep incisional surgical site, initial encounter Status: Acute Assessment and Plan: She has a deep post-operative right shoulder wound infection with MRSA. ID recommending 6 weeks IV antibiotics. PICC line placement was unsuccessful on the left and not attempted on the right due to her shoulder fracture and right mastectomy. Her only IV access at this time is a midline catheter. We have been consulted for placement of a Lemus catheter for the long-term IV antibiotics. Description of the procedure, risks, benefits, and expected outcomes were discussed with the patient in detail. All questions were answered. Will plan to proceed with placement of a Lemus catheter in the OR by Dr. Burgos tomorrow. NPO after midnight. 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 Burgos. Thank you for allowing us to see the patient in consultation. History of Present Illness Consult details Consult date: 06/28/21 Reason for consult: central line (Lemus catheter placement) Requesting physician: Sherrell Campbell, CONSTANT[facility] Narrative: This is a 75-year-old female who had a right humerus fracture in late April after a ground level fall that is s/p ORIF on 06/03/21. She was found to have a postoperative infection of right shoulder wound during her follow-up visit and was subsequently admitted to the hospital for IV antibiotics. She was taken back to surgery and underwent irrigation ad debridement right shoulder wound with removal of deep implanted hardware on 06/21/21. ID was consulted and is recommending 6 weeks of IV antibiotics. There was an attempt this past weekend to place a PICC line in the left upper extremity, which was unsuccessful due to inability to thread the line. No attempt on the right side because of previous mastectomy and right shoulder wound/fracture. Therefore a midline catheter was placed. Our service has now been asked to see the patient for placement of a Lemus catheter for long-term IV antibiotics. She is now seen on the medical floor. The patient has a history of a right mastectomy in 1998 and at that time also had a Port-A-Cath on the left side. No other previous chest or neck surgeries. She does also have some bruising on her right chest that she reports is from her fall in April. Also to note, she was taking Humira for Psoriasis, which has since been stopped due to the infection. Last dose was taken just under 2 weeks ago. Review of Systems Review of Systems: All systems reviewed & are unremarkable except as noted in HPI and below Integumentary/Breasts: Skin/Breast: Reports system reviewed and no additional complaints, except as docu and Reports other (right mastectomy in 1998) Hematologic/Lymphatic: Comments: Hx Port-a-cath in the left chest dur
[2021-06-28 16:00] VITALS: PULSE 80; RESP 18; TEMP 36.9; O2SAT 98
--- NOTE | 2021-06-28 16:02 | PM.PNORT ---
Progress Note: A&P Assessment and Plan (1) Deep postoperative wound infection: Code(s): T81.42XA - Infection following a procedure, deep incisional surgical site, initial encounter Status: Acute Assessment and Plan: Patient is POD #7, s/p Irrigation and debridement right shoulder deep wound with removal of deep implanted hardware plate, and screws. Unable to get PICC at bedside. Line to be placed tomorrow in OR. Discharge planning in progress. Anticipate discharge to home with home health and home PT tomorrow. Will obtain x-rays before discharge. Subjective Subjective Date/Time Seen: 06/28/21 16:02 Interval history: Pain continues to improve. Feeling better. Exam Narrative: Afebrile. Vitals stable. No acute distress. Alert and oriented. Wearing sling and intact dressings. Minimal drainage from distal wound. Swelling much less overall. No erythema at wound. Good ROM of elbow and wrist. Distal pulses palpable. Light touch sensation intact. Good capillary refill. Objective Data Vital Signs Vital Signs: Vital Signs - 24 hr 06/27/21 19:43 06/28/21 04:42 06/28/21 05:14 Temperature 36.6 C 36.1 C L Pulse Rate 72 72 67 Respiratory Rate 18 18 18 Blood Pressure 129/54 L 151/74 H Pulse Oximetry 97 97 94 06/28/21 08:04 06/28/21 12:00 Temperature 36.9 C Pulse Rate 72 81 Respiratory Rate 16 Blood Pressure 143/68 H Pulse Oximetry 98 Intake/Output Intake/Output: Intake & Output 06/25/21 06/26/21 06/27/21 06/28/21 23:59 23:59 23:59 23:59 Intake Total 1570 1220 2270 1010 Output Total 1800 700 Balance -070 514 3630 1010 Meds/Results Medications: Active Medications Generic Name Dose Route Start Last Admin Trade Name Freq PRN Reason Stop Dose Admin Hydrocodone Bitart/Acetaminophen 1 tab 06/21/21 15:10 06/28/21 04:20 Hydrocodone/Acetaminophen (*Crx) 5-325 Mg Tablet PO 1 tab Q6H PRN Administration PAIN RATED 4-6 Alteplase, Recombinant 2 mg 06/27/21 09:20 06/27/21 10:26 Alteplase 2 Mg Vial (Cathflo) IV PUSH 2 mg ONCE PRN Administration Line Occlusion Atorvastatin Calcium 80 mg 06/21/21 09:00 06/28/21 08:04 Atorvastatin 40 Mg Tablet PO 80 mg DAILY CRISTY Administration Carvedilol 6.25 mg 06/21/21 09:00 06/28/21 08:04 Carvedilol 6.25 Mg Tablet PO 6.25 mg DAILY CRISTY Administration Dextrose 12.5 gm 06/21/21 16:22 Dextrose 50% 25 Gm/50 Ml Syringe IV PUSH PRN PRN Hypoglycemia Protocol Docusate Sodium 100 mg 06/21/21 17:00 06/28/21 08:04 Docusate Sodium 100 Mg Capsule PO 100 mg BID CRISTY Administration Enoxaparin Sodium 40 mg 06/26/21 10:35 06/28/21 08:05 Enoxaparin 40 Mg/0.4 Ml Syringe SUB-Q 40 mg DAILY CRISTY Administration Fluticasone Propionate 1 spray 06/21/21 09:00 06/28/21 08:05 Fluticasone Propionate 0.05% Na Spr 16 Gm Btl (*Bkc) NASAL 1 spray DAILY CRISTY Administration Gabapentin 300 mg 06/20/21 17:00 06/28/21 08:05 Gabapentin 300 Mg Capsule PO 300 mg BID CRISTY Administration Glucagon 1 mg 06/21/21 16:22 Glucagon For Inj 1 Mg Vial IM PRN PRN Hypoglycemia Protocol Glucose 15 gm 06/21/21 16:22 Glucose Oral Gel 15 Gm Of Glucse In 37.5 Gm Tube PO PRN PRN Hypoglycemia Protocol Dextrose 1,000 mls @ 100 mls/hr 06/21/21 16:22 Dextrose 5% 1,000 Ml IVPB PRN PRN Hypoglycemia Protocol Vancomycin HCl 1,500 mg in 500 mls @ 333.333 mls/hr 06/27/21 16:00 06/28/21 05:50 Vancomycin 1,500 Mg/D5w 500 Ml IVPB Infused Q12H CRISTY Infusion Insulin Aspart 2 - 5 units 06/21/21 17:00 06/28/21 12:41 Insulin Aspart (*Bkc) 100 Units/Ml SUB-Q Not Given TIDWM CRISTY Protocol Levothyroxine Sodium 125 mcg 06/21/21 06:30 06/28/21 05:19 Levothyroxine Sodium 125 Mcg Tablet PO 125 mcg DAILY@0630 CRISTY Administration Lorazepam 0.5 mg 06/28/21 13:52 Lorazepam (*Crx) 0.5 Mg Tablet PO Q6H PRN An
--- NOTE | 2021-06-28 17:28 | PM.IMPN ---
Progress Note: A&P Assessment and Plan (1) Deep postoperative wound infection: Code(s): T81.42XA - Infection following a procedure, deep incisional surgical site, initial encounter Status: Acute Assessment and Plan: Patient presented to an outside area hospital and found to have a wound infection patient went to the OR 06/21/[address] Dodson for hardware removal with I&D OR cultures growing MRSA, will need 5 more weeks of IV vanc (will have completed one week here) WBC wnl PICC not an option GS consulted, plan for Lemus catheter in a.m. by Dr. Burgos NPO after midnight (2) Diabetes: Code(s): E11.9 - Type 2 diabetes mellitus without complications Status: Chronic Assessment and Plan: continue sliding scale insulin and Januvia A1c 8.5 Monitor (3) Hypertension: Code(s): I10 - Essential (primary) hypertension Status: Chronic Assessment and Plan: Stable Continue with Coreg and losartan Monitor (4) Hypothyroidism: Code(s): E03.9 - Hypothyroidism, unspecified Status: Chronic Assessment and Plan: Continue levothyroxine (5) Hyperlipidemia: Code(s): E78.5 - Hyperlipidemia, unspecified Status: Chronic Assessment and Plan: Continue with atorvastatin (6) Psoriasis: Code(s): L40.9 - Psoriasis, unspecified Status: Chronic Assessment and Plan: Humira is on hold at this time Pt does not want to restart this 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 (7) Chronic back pain: Code(s): M54.9 - Dorsalgia, unspecified; G89.29 - Other chronic pain Status: Chronic Assessment and Plan: Stable (8) Generalized anxiety disorder: Code(s): F41.1 - Generalized anxiety disorder Status: Chronic Assessment and Plan: Chronic and stable Continue with Zoloft Supportive care Subjective Date/time seen: 06/28/21 17:28 Interval history: Pt seen and evaluated; no acute events overnight; labs, vs, diagnostic reports, consult notes reviewed; pt is anxious about d/c, she's concerned about her Review of Systems Review of Systems: All systems reviewed & are unremarkable except as noted in HPI and below Exam Narrative: General: Well developed well nourished patient in NAD HEENT: normocephalic Neck: supple Neuro: Alert and oriented x4 CV:RRR Resp:CTA Abd: Soft, non distended. No pain to palpation. Positive bowel sounds Extremities: RUE sling intact; incision with minimal drainage; no erythema. Pulses to the radial artery intact. Extremity warm with sensation intact. Objective Data Vital Signs Vital Signs: Vital Signs - 24 hr 06/27/21 19:43 06/28/21 04:42 06/28/21 05:14 Temperature 36.6 C 36.1 C L Pulse Rate 72 72 67 Respiratory Rate 18 18 18 Blood Pressure 129/54 L 151/74 H Pulse Oximetry 97 97 94 06/28/21 08:04 06/28/21 12:00 Temperature 36.9 C Pulse Rate 72 81 Respiratory Rate 16 Blood Pressure 143/68 H Pulse Oximetry 98 Intake/Output Intake/Output: Intake & Output 06/25/21 06/26/21 06/27/21 06/28/21 23:59 23:59 23:59 23:59 Intake Total 1570 1220 2270 1010 Output Total 1800 700 Balance -546 211 0755 1010 Meds/Results Medications: Active Medications Generic Name Dose Route Start Last Admin Trade Name Freq PRN Reason Stop Dose Admin Hydrocodone Bitart/Acetaminophen 1 tab 06/21/21 15:10 06/28/21 04:20 Hydrocodone/Acetaminophen (*Crx) 5-325 Mg Tablet PO 1 tab Q6H PRN Administration PAIN RATED 4-6 Alteplase, Recombinant 2 mg 06/27/21 09:20 06/27/21 10:26 Alteplase 2 Mg Vial (Cathflo) IV PUSH 2 mg ONCE PRN Administration Line Occlusion Atorvastatin Calcium 80 mg 06/21/21 09:00 06/28/21 08:04 Atorvastatin 40 Mg Tablet PO 80 mg DAILY CRISTY Administration Carvedilol 6.25 mg 06/21/21 09:00 06/28/21 08:04 Carvedilol 6.25 Mg Tablet PO 6.25 mg DAILY CRISTY Administration Dextrose 12.5 gm
[2021-06-28 17:40] LABS: Glucose Point of Care 205 mg/dl (65-105)
[2021-06-28] MEDS: INSULIN ASPART (*BKC) 100 UNITS/ML SUB-Q (17:42)
--- NOTE | 2021-06-28 18:26 | WPDANESEPP ---
Anes - Eval Pre Procedure Procedure: Operation Date: 06/29/21 14:30 Proposed Procedures p Insertion Lemus Catheter - Kings Burgos DO Date/Time: 06/28/21 18:26 Pre Op Diagnosis: Infected ORIF shoulder Patient Data Age: 75 Gender: F Height: 1.6 m Weight: 82.6 kg Last Vital Signs Temp 98.4 F 06/28/21 16:00 Pulse 80 06/28/21 16:00 Resp 18 06/28/21 16:00 BP 143/68 H 06/28/21 12:00 Pulse Ox 98 06/28/21 16:00 Allergies Allergy/AdvReac Type Severity Reaction Status Date / Time No Known Allergies Allergy Verified 06/20/21 09:08 Home Medications Medication Instructions Recorded Confirmed Type One-A-Day Womens Formula 1 tablet PO DAILY 09/12/19 06/20/21 History aspirin 81 mg PO DAILY 09/12/19 06/20/21 History atorvastatin 80 mg PO DAILY 09/12/19 06/20/21 History carvedilol 6.25 mg PO DAILY 09/12/19 06/20/21 History gabapentin 300 mg PO BID 09/12/19 06/20/21 History levothyroxine 125 mcg PO DAILY 09/12/19 06/20/21 History losartan 50 mg PO DAILY 09/12/19 06/20/21 History metformin 1,000 mg PO DAILY 09/12/19 06/20/21 History sertraline 100 mg PO DAILY 09/12/19 06/20/21 History Januvia 50 mg PO DAILY 06/01/21 06/20/21 History adalimumab 40 mg/0.8 mL See Rx Instructions SUBCUT .COMPLEX 06/01/21 06/20/21 History subcutaneous syringe kit fluticasone propionate 50 1 spray INTRANASAL DAILY 06/01/21 06/20/21 History mcg/actuation nasal spray,suspension hydrocodone-acetaminophen 1 tablet PO Q6H PRN 06/01/21 06/20/21 History nabumetone 500 mg PO BID 06/01/21 06/20/21 History hydrocodone 5 mg-acetaminophen 325 1 - 2 tablet PO Q4-6H PRN #30 06/15/21 06/20/21 Rx mg tablet tablet MDD 8 cephalexin 500 mg capsule 500 mg PO QID 10 Days #40 cap 06/17/21 06/20/21 Rx Laboratory Tests 06/27/21 06/27/21 06/28/21 18:36 19:46 05:19 WBC 7.6 K/mm3 K/mm3 (4.5-10.0) RBC 3.54 M/mm3 L M/mm3 (4.2-5.4) Hgb 9.6 g/dL L g/dL (12.0-15.0) Hct 31.2 % L % (37.0-47.0) MCV 88.1 fl fl (80-100) MCH 27.1 pg pg (26-34) MCHC 30.8 g/dl L g/dl (32-36) RDW 13.9 % % (11.5-14.5) Plt Count 230 k/mm3 k/mm3 (150-375) MPV 10.3 fl fl (7.4-10.4) Sodium Potassium Chloride Carbon Dioxide Anion Gap BUN Creatinine Estim Creat Clear Calc Estimated GFR Glucose POC Capillary Glucose 166 mg/dl H mg/dl 220 mg/dl H mg/dl (65-105) (65-105) Calcium C-Reactive Protein 06/28/21 06/28/21 06/28/21 05:19 08:02 12:34 WBC RBC Hgb Hct MCV MCH MCHC RDW Plt Count MPV Sodium 138 mmol/L mmol/L (137-145) Potassium 3.9 mmol/L mmol/L (3.4-5.0) Chloride 103 mmol/L mmol/L (98-107) Carbon Dioxide 29 mmol/L mmol/L (22-30) Anion Gap 6 mmol/L L mmol/L (8-16) BUN 10 mg/dL mg/dL (7-17) Creatinine 0.60 mg/dL L mg/dL (0.7-1.0) Estim Creat Clear Calc 69 ml/min ml/min Estimated GFR > 60 (59 - ) Glucose 177 mg/dL H mg/dL (65-110) POC Capillary Glucose 129 mg/dl H mg/dl 167 mg/dl H mg/dl (65-105) (65-105) Calcium 9.3 mg/dL mg/dL (8.4-10.2) C-Reactive Protein 3.3 mg/dL H mg/dL (<1.0) 06/28/21 17:28 WBC RBC Hgb Hct MCV MCH MCHC RDW Plt Count MPV Sodium Potassium Chloride Carbon Dioxide Anion Gap BUN Creatinine Estim Creat Clear Calc Estimated GFR Glucose POC Capillary Glucose 205 mg/dl H mg/dl (65-105) Calcium C-Reactive Protein Patient hx anesthe
[2021-06-28 21:27] VITALS: BP 143/54; PULSE 70; RESP 18; TEMP 36.1; O2SAT 97
[2021-06-28 21:39] LABS: Glucose Point of Care 140 mg/dl (65-105)
[2021-06-29] VITALS (18 sets, daily range): BP systolic 129–171; BP diastolic 64–89; PULSE 60–83; RESP 10–20; TEMP 36.2–36.9; O2SAT 93–100
[2021-06-29 03:46] LABS: Estimated CRCL calculation 81 ml/min; Estimated Glomerular Filt Rate > 60
[2021-06-29 03:52] LABS: Prothrombin Time 13.4 Seconds (11.1-14.7)
[2021-06-29 03:53] LABS: Partial Thromboplastin Time 32.4 SECONDS (22.3-36.8)
[2021-06-29 04:41] LABS: Vancomycin Trough 19.2 ug/mL (10.0-20.0)
[2021-06-29 09:20] LABS: Hematocrit 32.5 % (37.0-47.0); Mean Corpuscular HGB Conc 30.8 g/dl (32-36); Mean Corpuscular Hemoglobin 26.7 pg (26-34); Mean Corpuscular Volume 86.7 fl (80-100); Mean Platelet Volume 10.2 fl (7.4-10.4); Platelet Count Result 235 k/mm3 (150-375); Red Blood Count 3.75 M/mm3 (4.2-5.4); Red Cell Distribution Width 13.9 % (11.5-14.5); White Blood Count 7.1 K/mm3 (4.5-10.0)
[2021-06-29 09:31] LABS: Alanine Aminotransferase 19 U/L (4-35); Albumin Level 3.7 g/dL (3.5-5.1); Alkaline Phosphatase 288 U/L (38-126); Anion Gap 9 mmol/L (8-16); Aspartate Amino Transferase 25 U/L (14-36); Bilirubin,Total 0.5 mg/dL (0.2-1.3); Blood Urea Nitrogen 8 mg/dL (7-17); Calcium 9.4 mg/dL (8.4-10.2); Carbon Dioxide 25 mmol/L (22-30); Chloride 106 mmol/L (98-107); Estimated CRCL calculation 81 ml/min; Estimated Glomerular Filt Rate > 60; Glucose 147 mg/dL (65-110); Potassium 3.9 mmol/L (3.4-5.0); Sodium 140 mmol/L (137-145)
[2021-06-29] MEDS: HYDROcodone/acetaminophen (*CRX) 5-325 MG TABLET 1 TAB PO ×2 (09:48→18:55)
[2021-06-29] MEDS: THERAPEUTIC MULTIVITAMINS/MINERALS TAB (*BKC) 1 TABLET PO (09:50)
[2021-06-29] MEDS: GABAPENTIN 300 MG CAPSULE PO ×2 (09:50→18:44)
[2021-06-29] MEDS: carvediloL 6.25 MG TABLET PO (09:51)
[2021-06-29] MEDS: LOSARTAN POTASSIUM 50 MG TABLET PO (09:52)
[2021-06-29] MEDS: FLUTICASONE PROPIONATE 0.05% NA SPR 16 GM BTL (*BKC) 1 SPRAY NASAL (09:52)
[2021-06-29] MEDS: ATORVASTATIN 40 MG TABLET 80 MG PO (09:52)
[2021-06-29] MEDS: SERTRALINE HCL 50 MG TABLET 100 MG PO (09:53)
--- NOTE | 2021-06-29 10:08 | WPDINFPN2 ---
Progress Note: A&P Assessment and Plan (1) Deep postoperative wound infection: Code(s): T81.42XA - Infection following a procedure, deep incisional surgical site, initial encounter Status: Acute Assessment and Plan: 1. SSI R upper arm, due to MRSA 2. Humerus facture 3. Psoriasis, on Humira, last dose 06/18. Her ongoing treatment predisposed to this infection 4. Poor IV access REC Vanc # days, through 07/31. No Humira until infection is cleared. Tunneled line today, ok discharge planning to accomplish the above, see me in office prior to antibiotic completion. Subjective Date/time seen: 06/29/21 10:08 Interval history: pain under control Exam Narrative: afebrile Const: General: no acute distress Eyes: General: appearance normal, both eyes and all related structures Resp: Effort & Inspection: normal respiratory effort Auscultation: clear to auscultation bilaterally Cardio: Rate: regular rate Rhythm: regular rhythm Heart sounds: no murmurs GI: Inspection: non-distended GI Palp: Yes Soft to palpation and No Tenderness to palpation present (GI) Extrem: Other: R arm dressed non tender no erythema Objective Data Vital Signs Vital Signs: Vital Signs - 24 hr 06/28/21 12:00 06/28/21 16:00 06/28/21 21:27 Temperature 36.9 C 36.9 C 36.1 C L Pulse Rate 81 80 70 Respiratory Rate 16 18 18 Blood Pressure 143/68 H 143/54 H Pulse Oximetry 98 98 97 06/29/21 04:00 06/29/21 09:51 Temperature 36.6 C Pulse Rate 60 68 Respiratory Rate 18 Blood Pressure 145/67 H Pulse Oximetry 98 Intake/Output Intake/Output: Intake & Output 06/26/21 06/27/21 06/28/21 06/29/21 23:59 23:59 23:59 23:59 Intake Total 1220 2270 1800 500 Output Total 700 Balance 520 2270 1800 500 Meds/Results Medications: Active Medications Generic Name Dose Route Start Last Admin Trade Name Freq PRN Reason Stop Dose Admin Hydrocodone Bitart/Acetaminophen 1 tab 06/21/21 15:10 06/29/21 09:48 Hydrocodone/Acetaminophen (*Crx) 5-325 Mg Tablet PO 1 tab Q6H PRN Administration PAIN RATED 4-6 Alteplase, Recombinant 2 mg 06/27/21 09:20 06/27/21 10:26 Alteplase 2 Mg Vial (Cathflo) IV PUSH 2 mg ONCE PRN Administration Line Occlusion Atorvastatin Calcium 80 mg 06/21/21 09:00 06/29/21 09:52 Atorvastatin 40 Mg Tablet PO 80 mg DAILY CRISTY Administration Carvedilol 6.25 mg 06/21/21 09:00 06/29/21 09:51 Carvedilol 6.25 Mg Tablet PO 6.25 mg DAILY CRISTY Administration Dextrose 12.5 gm 06/21/21 16:22 Dextrose 50% 25 Gm/50 Ml Syringe IV PUSH PRN PRN Hypoglycemia Protocol Docusate Sodium 100 mg 06/21/21 17:00 06/29/21 09:51 Docusate Sodium 100 Mg Capsule PO Not Given BID CRISTY Enoxaparin Sodium 40 mg 06/26/21 10:35 06/28/21 08:05 Enoxaparin 40 Mg/0.4 Ml Syringe SUB-Q 40 mg DAILY CRISTY Administration Fluticasone Propionate 1 spray 06/21/21 09:00 06/29/21 09:52 Fluticasone Propionate 0.05% Na Spr 16 Gm Btl (*Bkc) NASAL 1 spray DAILY CRISTY Administration Gabapentin 300 mg 06/20/21 17:00 06/29/21 09:50 Gabapentin 300 Mg Capsule PO 300 mg BID CRSITY Administration Glucagon 1 mg 06/21/21 16:22 Glucagon For Inj 1 Mg Vial IM PRN PRN Hypoglycemia Protocol Glucose 15 gm 06/21/21 16:22 Glucose Oral Gel 15 Gm Of Glucse In 37.5 Gm Tube PO PRN PRN Hypoglycemia Protocol Dextrose 1,000 mls @ 100 mls/hr 06/21/21 16:22 Dextrose 5% 1,000 Ml IVPB PRN PRN Hypoglycemia Protocol Vancomycin HCl 1,500 mg in 500 mls @ 333.333 mls/hr 06/27/21 16:00 06/29/21 06:41 Vancomycin 1,500 Mg/D5w 500 Ml IVPB Infused Q12H CRISTY Infusion Insulin Aspart 2 - 5 units 06/21/21 17:00 06/29/21 09:42 Insulin Aspart (*Bkc) 100 Units/Ml SUB-Q Not Given TIDWM CRISTY Protocol Levothyroxine Sodium 125 mcg 06/21/21 06:30 06/29/21 05:11 Levothyroxine Sodium 125 Mcg Tablet PO
--- NOTE | 2021-06-29 11:48 | PM.IMPN ---
Progress Note: A&P Assessment and Plan (1) Deep postoperative wound infection: Code(s): T81.42XA - Infection following a procedure, deep incisional surgical site, initial encounter Status: Acute Assessment and Plan: Patient presented to an outside area hospital and found to have a wound infection patient went to the OR 06/21/[address] Dodson for hardware removal with I&D OR cultures growing MRSA, will need 5 more weeks of IV vanc (will have completed one week here) WBC wnl PICC not an option GS consulted, plan for Lemus catheter today by Dr. Burgos (2) Diabetes: Code(s): E11.9 - Type 2 diabetes mellitus without complications Status: Chronic Assessment and Plan: continue sliding scale insulin and Januvia A1c 8.5 Monitor (3) Hypertension: Code(s): I10 - Essential (primary) hypertension Status: Chronic Assessment and Plan: Stable Continue with Coreg and losartan Monitor (4) Hypothyroidism: Code(s): E03.9 - Hypothyroidism, unspecified Status: Chronic Assessment and Plan: Continue levothyroxine (5) Hyperlipidemia: Code(s): E78.5 - Hyperlipidemia, unspecified Status: Chronic Assessment and Plan: Continue with atorvastatin (6) Psoriasis: Code(s): L40.9 - Psoriasis, unspecified Status: Chronic Assessment and Plan: Humira is on hold at this time Pt does not want to restart this 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 (7) Chronic back pain: Code(s): M54.9 - Dorsalgia, unspecified; G89.29 - Other chronic pain Status: Chronic Assessment and Plan: Stable (8) Generalized anxiety disorder: Code(s): F41.1 - Generalized anxiety disorder Status: Chronic Assessment and Plan: Chronic and stable Continue with Zoloft Supportive care Subjective Date/time seen: 06/29/21 11:48 Interval history: 06/28 Pt seen and evaluated; no acute events overnight; labs, vs, diagnostic reports, consult notes reviewed; pt is anxious about d/c, she's concerned about her 06/29 pt seen and evaluated; plan for Lemus catheter this afternoon; no acute events overnight Review of Systems Review of Systems: All systems reviewed & are unremarkable except as noted in HPI and below Exam Narrative: General: Well developed well nourished patient in NAD HEENT: normocephalic Neck: supple Neuro: Alert and oriented x4 CV:RRR Resp:CTA Abd: Soft, non distended. No pain to palpation. Positive bowel sounds Extremities: RUE dressing intact, Pulses to the radial artery intact. Extremity warm with sensation intact. Objective Data Vital Signs Vital Signs: Vital Signs - 24 hr 06/28/21 12:00 06/28/21 16:00 06/28/21 21:27 Temperature 36.9 C 36.9 C 36.1 C L Pulse Rate 81 80 70 Respiratory Rate 16 18 18 Blood Pressure 143/68 H 143/54 H Pulse Oximetry 98 98 97 06/29/21 04:00 06/29/21 09:51 Temperature 36.6 C Pulse Rate 60 68 Respiratory Rate 18 Blood Pressure 145/67 H Pulse Oximetry 98 Intake/Output Intake/Output: Intake & Output 06/26/21 06/27/21 06/28/21 06/29/21 23:59 23:59 23:59 23:59 Intake Total 1220 2270 1800 500 Output Total 700 Balance 520 2270 1800 500 Meds/Results Medications: Active Medications Generic Name Dose Route Start Last Admin Trade Name Freq PRN Reason Stop Dose Admin Hydrocodone Bitart/Acetaminophen 1 tab 06/21/21 15:10 06/29/21 09:48 Hydrocodone/Acetaminophen (*Crx) 5-325 Mg Tablet PO 1 tab Q6H PRN Administration PAIN RATED 4-6 Alteplase, Recombinant 2 mg 06/27/21 09:20 06/27/21 10:26 Alteplase 2 Mg Vial (Cathflo) IV PUSH 2 mg ONCE PRN Administration Line Occlusion Atorvastatin Calcium 80 mg 06/21/21 09:00 06/29/21 09:52 Atorvastatin 40 Mg Tablet PO 80 mg DAILY CRISTY Administration Carvedilol 6.25 mg 06/21/21 09:00 06/29/21 09:51 Carvedilol 6.25 Mg Tablet PO 6.25 mg DAILY CRISTY
[2021-06-29 12:02] LABS: Glucose Point of Care 131 mg/dl (65-105)
--- NOTE | 2021-06-29 13:19 | PC.NURSE ---
PT DOWN IN OR FOR CRUZ CATHETER PROCEDURE
--- NOTE | 2021-06-29 13:41 | WPDANESEPPF ---
Anes - Initial Pre Proc Eval Procedure: Operation Date: 06/29/21 14:30 Proposed Procedures p Insertion Lemus Catheter - Kings Burgos DO Date/Time: 06/29/21 13:41 Surgeon: Andre Dodson MD Pre Op Diagnosis: Infected ORIF shoulder Patient Data Age: 75 Gender: F Height: 1.6 m Weight: 82.6 kg Last Vital Signs Temp 36.9 C 06/29/21 13:26 Pulse 70 06/29/21 13:26 Resp 16 06/29/21 13:26 BP 154/70 H 06/29/21 13:26 Pulse Ox 93 06/29/21 13:26 Allergies Allergy/AdvReac Type Severity Reaction Status Date / Time No Known Allergies Allergy Verified 06/20/21 09:08 Home Medications Medication Instructions Recorded Confirmed Type One-A-Day Womens Formula 1 tablet PO DAILY 09/12/19 06/20/21 History aspirin 81 mg PO DAILY 09/12/19 06/20/21 History atorvastatin 80 mg PO DAILY 09/12/19 06/20/21 History carvedilol 6.25 mg PO DAILY 09/12/19 06/20/21 History gabapentin 300 mg PO BID 09/12/19 06/20/21 History levothyroxine 125 mcg PO DAILY 09/12/19 06/20/21 History losartan 50 mg PO DAILY 09/12/19 06/20/21 History metformin 1,000 mg PO DAILY 09/12/19 06/20/21 History sertraline 100 mg PO DAILY 09/12/19 06/20/21 History Januvia 50 mg PO DAILY 06/01/21 06/20/21 History adalimumab 40 mg/0.8 mL See Rx Instructions SUBCUT .COMPLEX 06/01/21 06/20/21 History subcutaneous syringe kit fluticasone propionate 50 1 spray INTRANASAL DAILY 06/01/21 06/20/21 History mcg/actuation nasal spray,suspension hydrocodone-acetaminophen 1 tablet PO Q6H PRN 06/01/21 06/20/21 History nabumetone 500 mg PO BID 06/01/21 06/20/21 History hydrocodone 5 mg-acetaminophen 325 1 - 2 tablet PO Q4-6H PRN #30 06/15/21 06/20/21 Rx mg tablet tablet MDD 8 cephalexin 500 mg capsule 500 mg PO QID 10 Days #40 cap 06/17/21 06/20/21 Rx Laboratory Tests 06/28/21 06/28/21 06/29/21 17:28 21:36 03:21 WBC RBC Hgb Hct MCV MCH MCHC RDW Plt Count MPV PT INR APTT Sodium Potassium Chloride Carbon Dioxide Anion Gap BUN Creatinine 0.50 mg/dL L mg/dL (0.7-1.0) Estim Creat Clear Calc 81 ml/min ml/min Estimated GFR > 60 (59 - ) Glucose POC Capillary Glucose 205 mg/dl H mg/dl 140 mg/dl H mg/dl (65-105) (65-105) Calcium Total Bilirubin AST ALT Alkaline Phosphatase Total Protein Albumin Vancomycin Trough 06/29/21 06/29/21 06/29/21 03:21 03:21 09:10 WBC 7.1 K/mm3 K/mm3 (4.5-10.0) RBC 3.75 M/mm3 L M/mm3 (4.2-5.4) Hgb 10.0 g/dL L g/dL (12.0-15.0) Hct 32.5 % L % (37.0-47.0) MCV 86.7 fl fl (80-100) MCH 26.7 pg pg (26-34) MCHC 30.8 g/dl L g/dl (32-36) RDW 13.9 % % (11.5-14.5) Plt Count 235 k/mm3 k/mm3 (150-375) MPV 10.2 fl fl (7.4-10.4) PT 13.4 Seconds Seconds (11.1-14.7) INR 1.0 APTT 32.4 SECONDS SECONDS (22.3-36.8) Sodium Potassium Chloride Carbon Dioxide Anion Gap BUN Creatinine Estim Creat Clear Calc Estimated GFR Glucose POC Capillary Glucose Calcium Total Bilirubin AST ALT Alkaline Phosphatase Total Protein Albumin Vancomycin Trough 19.2 ug/mL ug/mL (10.0-20.0) 06/29/21 06/29/21 09:10 11:55 WBC RBC Hgb Hct MCV MCH MCHC RDW Plt Count MPV PT INR
[2021-06-29] MEDS: LACTATED RINGERS 1,000 ML 30 ML IV CONT (14:01)
--- NOTE | 2021-06-29 14:32 | WPDHPUPDATE1 ---
History and Physical Update Update Date/Time: 06/29/21 14:32 History and Physical has been reviewed, including an updated exam of the patient. There are NO changes in the patient's condition. Risks, benefits, and alternatives have been discussed and questions answered. Patient agrees to proceed with procedure.
--- NOTE | 2021-06-29 15:51 | W.PM.PROC2 ---
Procedure Note - Detailed Date of Procedure 06/29/21 Pre-op Diagnosis Infected ORIF shoulder, need for IV access Post-op Diagnosis same Procedure Performed 1. Attempted left internal jugular access for Lemus catheter 2. Right internal jugular tunneled Lemus catheter placement using ultrasound and fluoroscopic guidance Surgeon Kings Burgos, DO Anesthesia general and local (1% lidocaine with epinephrine) Indications This is a 75-year-old woman who presented with an infected right shoulder hardware. She is in need of long-term IV antibiotics. PICC line was attempted but was unsuccessful. She only has peripheral IV access currently and will need longer-term access. Decision was made to proceed with Lemus catheter placement. Findings I attempted a left internal jugular access for tunneled Lemus catheter placement. Ultrasound guidance was used to identify the left internal jugular vein. This was accessed with an 18 gauge introducer needle and guidewire initially advanced smoothly, but guidewire was not advancing beyond about 10 cm. Fluoroscopy was used to identify where the guidewire was going. It was meeting resistance as the guidewire advanced into the innominate vein. I attempted a softer guidewire but still was meeting resistance. I eventually decided to abort left internal jugular vein access and moved to the right side. I was able to access the right internal jugular vein with ultrasound guidance. This was visualized as a compressible vessel just lateral to the pulsatile carotid artery. The 18 gauge introducer needle advanced directly into the vein under ultrasound guidance. The guidewire was then advanced through the needle under fluoroscopic guidance and this was visualized advancing all the way down into the right atrium. A 9.5 [place] Lemus catheter was then tunneled from a chest incision up to the neck incision. The final fluoroscopic images demonstrated the catheter in proper position without any kinks along its path. Description of Procedure Procedure as well as risks, benefits, and alternatives were discussed with the patient. Written consent was obtained and placed in chart prior to procedure. Patient was brought back to surgical suite. She was placed supine on operating table. Time-out was done to confirm patient and procedure. IV sedation was then administered by the Anesthesia Department and she was placed under general anesthesia with LMA. Her neck and chest area were prepped and draped in sterile fashion using chlorhexidine prep. She was placed in a Trendelenburg position. SonoSite ultrasound was used to identify the left internal jugular vein. 1% lidocaine with epinephrine was infiltrated locally over this region. An 18 gauge introducer needle was then advanced under ultrasound guidance. Dark nonpulsatile blood was aspirated. A 0.035 in guidewire was then advanced under fluoroscopic guidance. The guidewire was meeting resistance, and therefore a softer J-wire was used to try to advance the guidewire further. I was still meeting resistance and was unable to advance beyond the innominate vein. The guidewire was then removed and the needle was withdrawn and pressure was then applied. I then moved over to the right side. The right internal jugular vein was visualized with ultrasound guidance. This was then anesthetized again with 1% lidocaine with epinephrine. An 18 gauge introducer needle was then advanced under ultrasound guidance directly into the right internal jugular vein. Dark nonpulsatile blood was aspirated. A 0.035 in guidewire was then advanced under fluoroscopic guidance. The guidewire advanced smoothly and the guidewire was visualized entering into the distal superior vena cava. The needle was withdrawn leaving the guidewire in place. 1% lidocaine with epinephrine was then infiltrated along the anterior chest. A small dionicio incision was made on the anterior chest and a tunneler was then used to tunnel
[2021-06-29 16:09] LABS: Glucose Point of Care 159 mg/dl (65-105)
[2021-06-29] MEDS: fentaNYL CITRATE INJ (*CRX) 100 MCG/2 ML VIAL 25 MCG IV PUSH ×4 (16:58→17:27)
--- NOTE | 2021-06-29 17:14 | SUR.PHASEI ---
delay pain emergency medicine specialist due to no orders and had to call the oncall
--- NOTE | 2021-06-29 17:45 | SUR.PHASEI ---
called at 1690 the nurse was in with a pt and will call me back for report.
[2021-06-29] MEDS: DOCUSATE SODIUM 100 MG CAPSULE PO (18:43)
[2021-06-29 19:58] LABS: Glucose Point of Care 216 mg/dl (65-105)
[2021-06-29] MEDS: MORPHINE SULFATE (*CRX) 2 MG/ML INJ IV PUSH (21:10)
[2021-06-30 00:31] VITALS: BP 131/51; PULSE 77; RESP 16; TEMP 36.2; O2SAT 94
[2021-06-30] MEDS: MORPHINE SULFATE (*CRX) 2 MG/ML INJ IV PUSH ×2 (00:31→04:24)
[2021-06-30 04:25] VITALS: BP 146/72; PULSE 76; RESP 18; TEMP 36.2; O2SAT 95
[2021-06-30] MEDS: LEVOTHYROXINE SODIUM 125 MCG TABLET PO (05:38)
[2021-06-30 05:45] LABS: Hematocrit 32.1 % (37.0-47.0); Mean Corpuscular HGB Conc 31.2 g/dl (32-36); Mean Corpuscular Hemoglobin 27.2 pg (26-34); Mean Corpuscular Volume 87.2 fl (80-100); Mean Platelet Volume 10.3 fl (7.4-10.4); Platelet Count Result 190 k/mm3 (150-375); Red Blood Count 3.68 M/mm3 (4.2-5.4); Red Cell Distribution Width 14.2 % (11.5-14.5); White Blood Count 7.9 K/mm3 (4.5-10.0)
[2021-06-30 05:58] LABS: Anion Gap 8 mmol/L (8-16); Blood Urea Nitrogen 10 mg/dL (7-17); Calcium 9.3 mg/dL (8.4-10.2); Carbon Dioxide 28 mmol/L (22-30); Chloride 101 mmol/L (98-107); Estimated CRCL calculation 81 ml/min; Estimated Glomerular Filt Rate > 60; Glucose 195 mg/dL (65-110); Potassium 3.8 mmol/L (3.4-5.0); Sodium 137 mmol/L (137-145)
[2021-06-30 07:46] LABS: Glucose Point of Care 156 mg/dl (65-105)
[2021-06-30] MEDS: ATORVASTATIN 40 MG TABLET 80 MG PO (09:01)
[2021-06-30] MEDS: FLUTICASONE PROPIONATE 0.05% NA SPR 16 GM BTL (*BKC) 1 SPRAY NASAL (09:01)
[2021-06-30] MEDS: GABAPENTIN 300 MG CAPSULE PO (09:01)
[2021-06-30] MEDS: DOCUSATE SODIUM 100 MG CAPSULE PO (09:01)
[2021-06-30 09:02] VITALS: PULSE 78
[2021-06-30] MEDS: carvediloL 6.25 MG TABLET PO (09:02)
[2021-06-30] MEDS: ENOXAPARIN 40 MG/0.4 ML SYRINGE SUB-Q (09:02)
[2021-06-30] MEDS: LOSARTAN POTASSIUM 50 MG TABLET PO (09:02)
[2021-06-30] MEDS: polyethylene glycoL 3350 17 GM POWD.PACK PO (09:02)
[2021-06-30] MEDS: THERAPEUTIC MULTIVITAMINS/MINERALS TAB (*BKC) 1 TABLET PO (09:02)
[2021-06-30] MEDS: SERTRALINE HCL 50 MG TABLET 100 MG PO (09:02)
[2021-06-30] MEDS: HYDROcodone/acetaminophen (*CRX) 5-325 MG TABLET 1 TAB PO (09:08)
--- NOTE | 2021-06-30 09:38 | WPDANESPN ---
Anes - Prog Note Post-Op Date/Time: 06/30/21 09:38 Cardiovascular status: normal Respiratory status: normal Airway patency: baseline Mental status: baseline Post-Op hydration status: normal Vital Signs: Last Vital Signs Temp 36.2 C L 06/30/21 04:25 Pulse 78 06/30/21 09:02 Resp 18 06/30/21 04:25 BP 146/72 H 06/30/21 04:25 Pulse Ox 95 06/30/21 04:25 Pain Score (VAS): 0 I/O: Intake & Output 06/29/21 06/30/21 06/30/21 23:59 07:59 15:59 Intake Total 800 750 Balance 800 750 Laboratory Tests 06/30/21 05:36 06/30/21 05:36 06/29/21 06/29/21 06/29/21 11:55 16:07 19:51 WBC RBC Hgb Hct MCV MCH MCHC RDW Plt Count MPV Sodium Potassium Chloride Carbon Dioxide Anion Gap BUN Creatinine Estim Creat Clear Calc Estimated GFR Glucose POC Capillary Glucose 131 H 159 H 216 H Calcium 06/30/21 06/30/21 06/30/21 05:36 05:36 07:43 WBC 7.9 RBC 3.68 L Hgb 10.0 L Hct 32.1 L MCV 87.2 MCH 27.2 MCHC 31.2 L RDW 14.2 Plt Count 190 MPV 10.3 Sodium 137 Potassium 3.8 Chloride 101 Carbon Dioxide 28 Anion Gap 8 BUN 10 Creatinine 0.50 L Estim Creat Clear Calc 81 Estimated GFR > 60 Glucose 195 H POC Capillary Glucose 156 H Calcium 9.3 Post-procedural complaints: none Patient Feedback: Patient satisfied with anesthetic care.
[2021-06-30 10:11] VITALS: BP 118/63; PULSE 74; RESP 16; TEMP 37; O2SAT 99
--- NOTE | 2021-06-30 11:41 | PM.DS ---
DS: Admitting Diagnosis Discharge Date 06/30/21 Admitting Diagnosis Deep wound infection status post proximal humerus ORIF. DS: Discharge Diagnosis Discharge Diagnosis (1) Deep postoperative wound infection: Code(s): T81.42XA - Infection following a procedure, deep incisional surgical site, initial encounter Status: Acute (2) Immunosuppression due to drug therapy: Code(s): D84.821 - Immunodeficiency due to drugs; Z79.899 - Other group home (current) drug therapy Status: Acute (3) Fracture of proximal end of right humerus: Qualifiers: Encounter type: initial encounter Fracture alignment: displaced Fracture morphology: other fracture Fracture type: closed Qualified Code(s): S42.291A - Other displaced fracture of upper end of right humerus, initial encounter for closed fracture Code(s): S42.201A - Unspecified fracture of upper end of right humerus, initial encounter for closed fracture Status: Acute Assessment and Plan: Patient is POD #9, s/p Irrigation and debridement right shoulder deep wound with removal of deep implanted hardware plate, and screws. Status post ORIF right proximal humerus fracture 06/03/21. Patient progressing well. Cultures grew MRSA. She will be on IV antibiotics for [address] catheter in [address]. She will follow up in the office on July 04, 2021 to remove sutures. Plan for home health PT. May use arm ad sandra and for ADLs. Sling for comfort only. Advance PT as tolerated. Daily dressing changes with gauze and tape. May shower. Will remove sutures in office on 07/04/21. Hydrocodone 5/325 for pain. DS: Summary Hospital Course Hospital Course: Patient was admitted for deep wound infection after ORIF of humerus fracture. Cultures grew MRSA. She is being sent home on IV antibiotics with home health. Trouble getting the PICC line. Access achieved through Lemus catheter. Time Spent with Patient Time attestation: Total time spent providing and/or coordinating discharge services: Exam Narrative: Pleasant 75 y/o female. No acute distress. Alert and oriented. Afebrile. Vitals stable. No acute distress. Alert and oriented. Wearing sling and intact dressings. Minimal drainage from distal wound. Swelling much less overall. No erythema at wound. Intact sutures. Good ROM of elbow and wrist. Distal pulses palpable. Light touch sensation intact. Good capillary refill. DS: Data Data Completed and Pending Labs on day of discharge: Labs from last 24 hours 06/30/21 06/30/21 06/30/21 07:43 05:36 05:36 WBC 7.9 RBC 3.68 L Hgb 10.0 L Hct 32.1 L MCV 87.2 MCH 27.2 MCHC 31.2 L RDW 14.2 Plt Count 190 MPV 10.3 Sodium 137 Potassium 3.8 Chloride 101 Carbon Dioxide 28 Anion Gap 8 BUN 10 Creatinine 0.50 L Estim Creat Clear Calc 81 Estimated GFR > 60 Glucose 195 H POC Capillary Glucose 156 H Calcium 9.3 06/29/21 06/29/21 06/29/21 19:51 16:07 11:55 WBC RBC Hgb Hct MCV MCH MCHC RDW Plt Count MPV Sodium Potassium Chloride Carbon Dioxide Anion Gap BUN Creatinine Estim Creat Clear Calc Estimated GFR Glucose POC Capillary Glucose 216 H 159 H 131 H Calcium Preliminary micro results at discharge 06/21/21 11:29 Fungal Culture - Preliminary Other Discharge Plan Discharge Attending physician on discharge: Andre Dodson Consulting providers: Jodie Smith ; Torri Barton ; Isidoro Up ; Yumi Bryant ; Kings Burgos ; Sherin Carrera ; Gabriel Tavares ; John Orozco ; Brendan Crain V. Discharging Clinician: Maritza Mann Anticipated Discharge Date/Time: 06/30/21 11:22 Patient Disposition: Home Health Service Activity: january shower Diet: as tolerated Wound Care Instructions: change dressing daily Discharge Instructions: Per Care Coordination p
[2021-06-30 12:16] LABS: Glucose Point of Care 173 mg/dl (65-105)
--- NOTE | 2021-06-30 18:24 | PM.IMPN ---
Progress Note: A&P Assessment and Plan (1) Deep postoperative wound infection: Code(s): T81.42XA - Infection following a procedure, deep incisional surgical site, initial encounter Status: Acute Assessment and Plan: Patient presented to an outside area hospital and found to have a wound infection patient went to the OR 06/21/[address] Dodson for hardware removal with I&D OR cultures growing MRSA, will need 5 more weeks of IV vanc (will have completed one week here) WBC wnl PICC not an option GS consulted, s/p Lemus catheter today by Dr. Burgos (2) Diabetes: Code(s): E11.9 - Type 2 diabetes mellitus without complications Status: Chronic Assessment and Plan: continue sliding scale insulin and Januvia A1c 8.5 Monitor (3) Hypertension: Code(s): I10 - Essential (primary) hypertension Status: Chronic Assessment and Plan: Stable Continue with Coreg and losartan Monitor (4) Hypothyroidism: Code(s): E03.9 - Hypothyroidism, unspecified Status: Chronic Assessment and Plan: Continue levothyroxine (5) Hyperlipidemia: Code(s): E78.5 - Hyperlipidemia, unspecified Status: Chronic Assessment and Plan: Continue with atorvastatin (6) Psoriasis: Code(s): L40.9 - Psoriasis, unspecified Status: Chronic Assessment and Plan: Humira is on hold at this time Pt does not want to restart this 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 (7) Chronic back pain: Code(s): M54.9 - Dorsalgia, unspecified; G89.29 - Other chronic pain Status: Chronic Assessment and Plan: Stable (8) Generalized anxiety disorder: Code(s): F41.1 - Generalized anxiety disorder Status: Chronic Assessment and Plan: Chronic and stable Continue with Zoloft Supportive care Subjective Date/time seen: 07/03/21 18:24 Interval history: 06/28 Pt seen and evaluated; no acute events overnight; labs, vs, diagnostic reports, consult notes reviewed; pt is anxious about d/c, she's concerned about her 06/29 pt seen and evaluated; plan for Lemus catheter this afternoon; no acute events overnight 06/30 pt seen and evaluated; s/p Lemus catheter yesterday; no new complaints Review of Systems Review of Systems: All systems reviewed & are unremarkable except as noted in HPI and below Exam Narrative: General: Well developed well nourished patient in NAD HEENT: normocephalic Neck: supple Neuro: Alert and oriented x4 CV:RRR Resp:CTA Abd: Soft, non distended. No pain to palpation. Positive bowel sounds Extremities: RUE dressing intact, Pulses to the radial artery intact. Extremity warm with sensation intact. Objective Data Intake/Output Intake/Output: Intake & Output 06/30/21 07/01/21 07/02/21 07/03/21 23:59 23:59 23:59 23:59 Intake Total 990 Balance 990 Meds/Results Radiology Results: ITS Impressions Shoulder X-Ray 06/28/21 19:05 IMPRESSION: 1. Right humeral head/neck fractures with some increase in periosteal reaction, healing response. Alignment stable. 2. Mottled appearance overlying humeral head and neck at least partly from the increasing periosteal reaction. Osteomyelitis not excludable. Central Venous Line 06/29/21 16:29 IMPRESSION: 1. Central line tip in right atrium. Chest X-Ray 06/29/21 16:30 IMPRESSION: 1. Central line tip at superior cavoatrial junction. 2. Mild atelectasis in lingula. 3. Fracture of proximal right humerus again seen. Quality VTE Prophylaxis VTE prophylaxis: mechanical ordered
== END 2021-06-30 13:15 | disposition home health service (06) | DRG 857 ==
PROVIDERS: Nurse Practitioner; Physician Assistant; Surgery; Admitting Provider Orthopaedic Surgery; PCP Hospitalist; Visit Provider Nurse Practitioner Adult Health
PROC: 0PPC04Z Removal of Internal Fixation Device from Right Humeral Head, Open Approach (ICD-10-PCS; principal; 2021-06-21 10:30)
PROC: 0JH63XZ Insertion of Tunneled Vascular Access Device into Chest Subcutaneous Tissue and Fascia, Percutaneous Approach (ICD-10-PCS; CPT 36908; principal; 2021-06-29 14:30)
DX: T81.42XA Infection following a procedure, deep incisional surgical site, initial encounter (principal); S42.291A Other displaced fracture of upper end of right humerus, initial encounter for closed fracture; D84.821 Immunodeficiency due to drugs; B95.62 Methicillin resistant Staphylococcus aureus infection as the cause of diseases classified elsewhere; Y83.8 Other surgical procedures as the cause of abnormal reaction of the patient, or of later complication, without mention of misadventure at the time of the procedure; Z91.81 History of falling; L40.9 Psoriasis, unspecified; E11.9 Type 2 diabetes mellitus without complications; I10 Essential (primary) hypertension; E03.9 Hypothyroidism, unspecified; E78.5 Hyperlipidemia, unspecified; F41.1 Generalized anxiety disorder; M54.9 Dorsalgia, unspecified; G89.29 Other chronic pain; K59.00 Constipation, unspecified; Z79.82 Long term (current) use of aspirin; Z79.84 Long term (current) use of oral hypoglycemic drugs; Z79.899 Other long term (current) drug therapy; Z87.891 Personal history of nicotine dependence; Z90.11 Acquired absence of right breast and nipple
CPT/HCPCS: 36415; 73030; 77001; 80048; 80053; 80076; 80202; 82565; 82948; 83036; 83605; 83615; 83735; 85025; 85027; 85610; 85730; 86140; 87040; 87070; 87075; 87102; 87147; 87186; 87205; 87206; A4565; A9270; C1751; C1769; J0131; J0696; J1100; J1644; J1650; J1815; J2250; J2270; J2405; J2704; J2997; J3010; J3370; J3475; J7030; J7120

== ENCOUNTER 2021-07-07 10:29 | Outpatient (NON) | payer MEDICARE, SELFPAY ==
[2021-07-07 20:03] LABS: Anion Gap 8 mmol/L (8-16); Blood Urea Nitrogen 10 mg/dL (7-17); Calcium 9.1 mg/dL (8.4-10.2); Carbon Dioxide 25 mmol/L (22-30); Chloride 106 mmol/L (98-107); Estimated Glomerular Filt Rate > 60; Glucose 126 mg/dL (65-110); Potassium 3.3 mmol/L (3.4-5.0); Sodium 139 mmol/L (137-145)
== END 2021-07-07 10:30 | disposition home or self-care (01) ==
PROVIDERS: PCP Hospitalist; Visit Provider Hospitalist
DX: S42.301A Unspecified fracture of shaft of humerus, right arm, initial encounter for closed fracture (principal); T81.49XA Infection following a procedure, other surgical site, initial encounter
CPT/HCPCS: 80048

== ENCOUNTER 2021-07-11 16:45 | Observation (INO) | payer MEDICARE, SELFPAY ==
[2021-07-11 16:52] VITALS: BP 167/78; PULSE 77; RESP 14; TEMP 36.9; O2SAT 99
[2021-07-11 17:15] LABS: Basophils Absolute Auto 0.1 K/mm3 (0.0-0.1); Basophils Percent Auto 2.2 % (0.2-1.2); Eosinophils Absolute Auto 0.4 K/mm3 (0-0.3); Hematocrit 32.6 % (37.0-47.0); Hemoglobin 10.4 g/dL (12.0-15.0); Immature Granulocyte Absolute 0.02 K/mm3 (0.00-0.031); Immature Granulocyte Percent A 0.4 % (0-0.5); Lymphocytes Absolute Auto 1.59 K/mm3 (0.9-3.2); Lymphocytes Percent Auto 31.9 % (18.3-44.2); Mean Corpuscular HGB Conc 31.9 g/dl (32-36); Mean Corpuscular Hemoglobin 26.4 pg (26-34); Mean Corpuscular Volume 82.7 fl (80-100); Mean Platelet Volume 9.9 fl (7.4-10.4); Monocytes Absolute Auto 0.7 K/mm3 (0.1-0.6); Monocytes Percent Auto 13.1 % (2.6-8.5); Neutrophils Absolute Auto 2.2 K/mm3 (1.3-6.7); Neutrophils Percent Auto 44.4 % (45.5-73.1); Platelet Count Result 199 k/mm3 (150-375); Red Blood Count 3.94 M/mm3 (4.2-5.4); Red Cell Distribution Width 14.3 % (11.5-14.5)
[2021-07-11 17:26] LABS: Anion Gap 7 mmol/L (8-16); Blood Urea Nitrogen 13 mg/dL (7-17); Calcium 9.4 mg/dL (8.4-10.2); Carbon Dioxide 25 mmol/L (22-30); Chloride 107 mmol/L (98-107); Estimated CRCL calculation 75 ml/min; Estimated Glomerular Filt Rate > 60; Glucose 126 mg/dL (65-110); Sodium 139 mmol/L (137-145)
[2021-07-11 17:27] VITALS: BP 147/71; PULSE 74; RESP 18; O2SAT 94
--- NOTE | 2021-07-11 18:01 | ED.GENADULT ---
HPI - General Adult General Chief complaint: Recheck/Abnormal Lab/Rx Stated complaint: low potassium Time Seen by Provider: 07/11/21 17:28 Source: patient History of Present Illness HPI narrative: Patient is a 75 y/o female complaining of low potassium. Patient states that she is on home IV antibiotics for right shoulder surgical site infection. She had routine labs drawn by the visiting nurse and her potassium was low at 2.8. There is no known worsening factor. She was instructed by her doctor's office to come to ED for evaluation. Related Data Home Medications Medication Instructions Recorded Confirmed One-A-Day Womens Formula 1 tablet PO DAILY 09/12/19 06/20/21 aspirin 81 mg PO DAILY 09/12/19 06/20/21 atorvastatin 80 mg PO DAILY 09/12/19 06/20/21 carvedilol 6.25 mg PO DAILY 09/12/19 06/20/21 gabapentin 300 mg PO BID 09/12/19 06/20/21 levothyroxine 125 mcg PO DAILY 09/12/19 06/20/21 losartan 50 mg PO DAILY 09/12/19 06/20/21 metformin 1,000 mg PO DAILY 09/12/19 06/20/21 sertraline 100 mg PO DAILY 09/12/19 06/20/21 Januvia 50 mg PO DAILY 06/01/21 06/20/21 adalimumab 40 mg/0.8 mL See Rx Instructions SUBCUT .COMPLEX 06/01/21 06/20/21 subcutaneous syringe kit fluticasone propionate 50 1 spray INTRANASAL DAILY 06/01/21 06/20/21 mcg/actuation nasal spray,suspension nabumetone 500 mg PO BID 06/01/21 06/20/21 Allergies Allergy/AdvReac Type Severity Reaction Status Date / Time No Known Allergies Allergy Verified 06/20/21 09:08 Review of Systems Constitutional: Constitutional: Denies chills, Denies fever(s), Denies headache(s) and Denies weakness Eyes: Eyes: Denies blurry vision ENT: Denies headache(s) and Denies neck pain Cardiovascular: Cardiovascular: Denies chest pain and Denies dyspnea Respiratory: Respiratory: Denies cough and Denies dyspnea Gastrointestinal: Gastrointestinal: Denies abdominal pain, Denies diarrhea, Denies nausea and Denies vomiting Genitourinary: Genitourinary: Denies hematuria and Denies dysuria Musculoskeletal: Musculoskeletal: Denies back pain and Denies neck pain Neurologic: Denies headache(s) and Denies weakness PMFSH Past Medical History Medical History Chronic back pain Chronic, continuous use of opioids Deep postoperative wound infection Diabetes Generalized anxiety disorder Hyperlipidemia Hypertension Hypothyroidism Psoriasis Surgical History Surgical History History of back surgery 3 back surgery History of incision and drainage (~06/21/21) Rt Humerus History of right mastectomy S/P ORIF (open reduction internal fixation) fracture (~06/03/21) Plate to right humerus status post right proximal humerus neck fracture Family History Family History Mother Lung cancer Sibling Bone cancer Father Natural with unknown cause Social History Social History Social History: Patient lives with her who has had multiple strokes. She takes care of her . She has 3 children. 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 The patient stated that she used to smoke 30 years ago. Her son Xander Melo is her durable power criminal defense attorney for healthcare. The patient is a full code. The patient denies any alcohol marijuana or illicit drugs. Smoking packs per day: 1 Smoking cigarettes per day: 20.0 Years smoked: 10 Smoking pack-years: 10.00 Smoking status: Former smoker Tobacco type: cigarettes Smoking end date: 09/24/79 Alcohol intake: never Substance use: never Substance use type: other Other substance usage details: CBD GUMMIES EVERY DAY Spiritual care concerns: No Exam Const: General: no acute distress and well developed Orientation/consciousness: oriented to person, oriented to place, oriented to time
[2021-07-11] MEDS: POTASSIUM CHLORIDE 20 MEQ TABLET 40 MEQ PO (18:08)
--- NOTE | 2021-07-11 18:37 | ECG_ITS ---
Measurements Intervals Nelson Rate: 67 P: 31 NJ: 220 QRS: -23 QRSD: 114 T: -21 QT: 390 QTc: 413 Interpretive Statements SINUS RHYTHM WITH FIRST DEGREE AV BLOCK INTRAVENTRICULAR CONDUCTION DELAY VOLTAGE CRITERIA FOR LVH BORDERLINE ST-T WAVE ABNORMALITY- DIFFUSE LEADS BASELINE ARTIFACT- I, II, III, AVR, AVL, AVF ABNORMAL ECG Electronically Signed On 07-11-2021 19:44:52 CDT by Khoa Campbell D.O.
[2021-07-11 20:19] LABS: Potassium 2.9 mmol/L (3.4-5.0)
[2021-07-11] MEDS: ACETAMINOPHEN 325 MG TABLET 650 MG PO (20:59)
[2021-07-11 21:15] VITALS: BP 138/78; PULSE 83; RESP 18; O2SAT 99
[2021-07-11 22:25] VITALS: BP 133/97; PULSE 77; RESP 16; TEMP 36.1; O2SAT 97
[2021-07-11 22:37] VITALS: O2SAT 97
[2021-07-11 22:46] VITALS: BMI 34.9
--- NOTE | 2021-07-11 23:26 | PM.IMHP ---
H&P: HPI History of Present Illness Date/Time: 07/11/21 23:26 Chief Complaint: Abnormal potassium Narrative: This is a 75-year-old female with past medical history significant for right humeral fracture, status post ORIF, patient presented 3 weeks postop with wound complicated with hematoma and infection patient was taken to the OR for exploration please see orthopedic surgeon surgical procedure report, hardware was removed and patient require tunneled catheter implantation for long-term antibiotic. Patient has been getting vancomycin and today presented to the emergency room after lab value was abnormal for potassium 2.9. Patient denies any fevers, any rigors ,any chills, any nausea, vomiting, diarrhea, abdominal pain , night sweats, cough, sputum production, no shortness of breath, no PND, no orthopnea, no leg pain ,no leg swelling, denies any pain or discomfort. Patient has been placed in observation status for further management, evaluation and treatment. Review of Systems Review of Systems: Low potassium. Constitutional: Constitutional: Denies chills, Denies fatigue, Denies fever(s), Denies malaise and Denies weakness Eyes: Eyes: Denies change in vision ENT: Denies dysphagia, Denies vertigo, Denies dizziness, Denies nasal congestion, Denies nasal discharge, Denies nasal obstruction and Denies odynophagia Cardiovascular: Cardiovascular: Denies claudication, Denies leg edema, Denies lightheadedness, Denies radiating jaw, neck or arm pain, Denies palpitations and Denies paroxysmal nocturnal dyspnea Respiratory: Respiratory: Denies cough, Denies excessive phlegm production and Denies dyspnea Gastrointestinal: Gastrointestinal: Denies abdominal pain, Denies diarrhea, Denies nausea and Denies vomiting Genitourinary: Genitourinary: Reports no additional female genitourinary complaints Musculoskeletal: Comments: Right shoulder surgical wound healed Integumentary/Breasts: Skin/Breast: Denies rash and Reports wounds (Right shoulder surgical wound) Neurologic: Denies focal weakness and Denies Sensory deficit (Neuro) Psychiatric: Psychiatric: Reports no additional psychiatric complaints Endocrine: Endocrine: Reports no additional endocrine complaints Hematologic/Lymphatic: Hematologic/Lymphatic: Reports no additional hematologic/lymphatic complaints Allergic/Immunologic: Allergic/Immunologic: Reports no additional allergic/immunologic complaints [facility] Past Medical History Medical History (Updated 07/11/21 @ 21:40 by Isidra Tadeo MD) Chronic back pain Chronic, continuous use of opioids Deep postoperative wound infection Diabetes Generalized anxiety disorder Hyperlipidemia Hypertension Hypothyroidism Psoriasis Surgical History Surgical History (Updated 07/12/21 @ 04:29 by Jaime Cummins MD) History of back surgery 3 back surgery History of incision and drainage (~06/21/21) Rt Humerus History of right mastectomy S/P ORIF (open reduction internal fixation) fracture (~06/03/21) Plate to right humerus status post right proximal humerus neck fracture Family History Family History Mother Lung cancer Sibling Bone cancer Father Natural with unknown cause Social History Social History Social History: Patient lives with her who has had multiple strokes. She takes care of her . She has 3 children. 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 The patient stated that she used to smoke 30 years ago. Her son Xander Melo is her durable power insurance attorney for healthcare. The patient is a full code. The patient denies any alcohol marijuana or illicit drugs. Smoking packs per day: 1 Smoking cigarettes per day: 20.0 Years smoked: 10 Smoking pack-years: 10.00 Smoking status: Former smoker Alcohol intake: never Substance use: never Substance use type: other Othe
[2021-07-12] VITALS (7 sets, daily range): BP systolic 113–137; BP diastolic 60–84; PULSE 66–84; RESP 16–18; TEMP 36.1–36.2; O2SAT 95–96; BMI 34.9
[2021-07-12 00:09] LABS: Glucose Point of Care 156 mg/dl (65-105)
[2021-07-12 01:07] LABS: Magnesium 1.5 mg/dL (1.6-2.3)
[2021-07-12 02:47] LABS: Vancomycin Random 16.3 ug/mL (10-20)
[2021-07-12] MEDS: LEVOTHYROXINE SODIUM 125 MCG TABLET PO (06:05)
[2021-07-12 06:39] LABS: Anion Gap 7 mmol/L (8-16); Blood Urea Nitrogen 11 mg/dL (7-17); Calcium 9.1 mg/dL (8.4-10.2); Carbon Dioxide 25 mmol/L (22-30); Chloride 110 mmol/L (98-107); Estimated CRCL calculation 72 ml/min; Estimated Glomerular Filt Rate > 60; Glucose 148 mg/dL (65-110); Potassium 3.2 mmol/L (3.4-5.0); Sodium 142 mmol/L (137-145)
[2021-07-12 08:04] LABS: Glucose Point of Care 176 mg/dl (65-105)
[2021-07-12] MEDS: ACETAMINOPHEN 325 MG TABLET 650 MG PO (08:16)
[2021-07-12] MEDS: FLUTICASONE PROPIONATE 0.05% NA SPR 16 GM BTL (*BKC) 1 SPRAY NASAL (08:18)
[2021-07-12] MEDS: ASPIRIN 81 MG ENTERIC TABLET PO (08:19)
[2021-07-12] MEDS: LOSARTAN POTASSIUM 50 MG TABLET PO (08:19)
[2021-07-12] MEDS: NABUMETONE 500 MG TABLET PO ×2 (08:19→16:38)
[2021-07-12] MEDS: ATORVASTATIN 40 MG TABLET 80 MG PO (08:19)
[2021-07-12] MEDS: SERTRALINE HCL 50 MG TABLET 100 MG PO (08:19)
[2021-07-12] MEDS: THERAPEUTIC MULTIVITAMINS/MINERALS TAB (*BKC) 1 TABLET PO (08:19)
[2021-07-12] MEDS: GABAPENTIN 300 MG CAPSULE PO ×2 (08:20→16:38)
[2021-07-12] MEDS: carvediloL 6.25 MG TABLET PO ×2 (08:20→16:38)
[2021-07-12] MEDS: MAGNESIUM SULF 2 GM/WATER 50ML 2 GM/50 ML BAG IVPB (09:25)
[2021-07-12] MEDS: POTASSIUM CHLORIDE 20 MEQ TABLET 40 MEQ PO ×2 (09:25→17:35)
[2021-07-12 11:44] LABS: Glucose Point of Care 112 mg/dl (65-105)
[2021-07-12 16:32] LABS: Glucose Point of Care 130 mg/dl (65-105)
[2021-07-12 17:12] LABS: Potassium 3.9 mmol/L (3.4-5.0)
--- NOTE | 2021-07-12 17:49 | PM.DS ---
DS: Admitting Diagnosis Discharge Date 07/12/21 Admitting Diagnosis (1) Hypokalemia: Code(s): E87.6 - Hypokalemia Status: Acute Assessment and Plan: Replace potassium as needed (2) Fracture of proximal end of right humerus: Qualifiers: Encounter type: initial encounter Fracture type: closed Fracture morphology: other fracture Fracture alignment: displaced Qualified Code(s): S42.291A - Other displaced fracture of upper end of right humerus, initial encounter for closed fracture Code(s): S42.201A - Unspecified fracture of upper end of right humerus, initial encounter for closed fracture Status: Acute Assessment and Plan: Status post ORIF STATUS POST REMOVAL OF PLATE AND SCREWS FOLLOW-UP IN OUTPATIENT SETTING (3) S/P ORIF (open reduction internal fixation) fracture: Onset Date: ~06/03/21 Code(s): Z98.890 - Other specified postprocedural states; Z87.81 - Personal history of (healed) traumatic fracture Status: Inactive Assessment and Plan: COMPLICATED WITH HEMATOMA AND INFECTION STATUS POST REMOVAL OF HARDWARE IV ANTIBIOTICS LONG-TERM VANCOMYCIN CONTINUE VANCOMYCIN (4) Hypertension: Code(s): I10 - Essential (primary) hypertension Status: Chronic Assessment and Plan: CONTINUE HOME MEDS (5) Chronic back pain: Code(s): M54.9 - Dorsalgia, unspecified; G89.29 - Other chronic pain Status: Chronic Assessment and Plan: TYLENOL NEEDED (6) Generalized anxiety disorder: Code(s): F41.1 - Generalized anxiety disorder Status: Chronic Assessment and Plan: CONTINUE HOME MED (7) History of right mastectomy: Code(s): Z90.11 - Acquired absence of right breast and nipple Status: Inactive Assessment and Plan: STABLE (8) Diabetes: Code(s): E11.9 - Type 2 diabetes mellitus without complications Status: Chronic DS: Discharge Diagnosis Discharge Diagnosis (1) Hypokalemia: Code(s): E87.6 - Hypokalemia Status: Acute (2) BMI 30.0-30.9,adult: Code(s): Z68.30 - Body mass index [BMI] 30.0-30.9, adult Status: Acute (3) Diabetes: Code(s): E11.9 - Type 2 diabetes mellitus without complications Status: Chronic (4) Hyperlipidemia: Code(s): E78.5 - Hyperlipidemia, unspecified Status: Chronic (5) Hypertension: Code(s): I10 - Essential (primary) hypertension Status: Chronic (6) Hypothyroidism: Code(s): E03.9 - Hypothyroidism, unspecified Status: Chronic (7) Deep postoperative wound infection: Code(s): T81.42XA - Infection following a procedure, deep incisional surgical site, initial encounter Status: Acute DS: Summary Hospital Course Reason for hospitalization: Hypokalemia Hospital Course: 75-year-old female receiving vancomycin prolonged course for postoperative ortho infection requiring removal of hardware, is sent to the emergency room after she was found to have a potassium of 2.9 on routine outpatient blood work. Patient was found to have magnesium 1.5 and both electrolytes were repleted during this hospitalization. With normalization of her electrolytes, she is discharged home in stable condition with indications of follow-up with her primary care physician and to continue her antibiotic therapy as directed until completion. Patient is looking forward to going home and requests home health care. Status at Discharge Overall status at discharge: patient is back to baseline Time Spent with Patient Time attestation: Total time spent providing and/or coordinating discharge services: Time spent: Greater than 30 minutes Exam Narrative: [facility] Const: General: cooperative, comfortable, no acute distress, well developed, alert and awake Nutritional Appearance: average body habitus Orientation/consciousness: patient oriented x3 HENMT: Head: normal to inspection, normocephalic and
== END 2021-07-12 18:40 | disposition home health service (06) ==
LOC: ANHED 21:40 → ANH3MED 23:31
PROVIDERS: Emergency Medicine; Physician Assistant; Admitting Provider Internal Medicine; Emergency Provider Emergency Medicine; PCP Hospitalist; Visit Provider Hospitalist
DX: E87.6 Hypokalemia (principal); M54.9 Dorsalgia, unspecified; E11.9 Type 2 diabetes mellitus without complications; Z79.84 Long term (current) use of oral hypoglycemic drugs; Z87.891 Personal history of nicotine dependence
CPT/HCPCS: 36415; 80048; 80202; 82948; 83735; 84132; 85025; 86140; 87040; 93005; 96365; 96366; 96375; 99285; A9270; G0378; J3370; J3475; J3480

== ENCOUNTER 2021-07-14 14:57 | Outpatient (NON) | payer MEDICARE, SELFPAY ==
[2021-07-15 09:32] LABS: Anion Gap 9 mmol/L (8-16); Blood Urea Nitrogen 10 mg/dL (7-17); Calcium 9.6 mg/dL (8.4-10.2); Carbon Dioxide 23 mmol/L (22-30); Chloride 106 mmol/L (98-107); Estimated Glomerular Filt Rate > 60; Glucose 122 mg/dL (65-110); Potassium 3.6 mmol/L (3.4-5.0); Sodium 138 mmol/L (137-145)
== END 2021-07-14 14:58 | disposition home or self-care (01) ==
PROVIDERS: PCP Hospitalist; Visit Provider Internal Medicine Infectious Disease
DX: T81.42XA Infection following a procedure, deep incisional surgical site, initial encounter (principal); Z45.2 Encounter for adjustment and management of vascular access device; Z79.2 Long term (current) use of antibiotics; E11.9 Type 2 diabetes mellitus without complications
CPT/HCPCS: 80048

== ENCOUNTER 2021-07-18 09:46 | Outpatient (NON) | payer MEDICARE, SELFPAY ==
[2021-07-18 18:44] LABS: Basophils Absolute Auto 0.1 K/mm3 (0.0-0.1); Basophils Percent Auto 2.9 % (0.2-1.2); Eosinophils Absolute Auto 0.3 K/mm3 (0-0.3); Immature Granulocyte Absolute 0.02 K/mm3 (0.00-0.031); Immature Granulocyte Percent A 0.5 % (0-0.5); Lymphocytes Absolute Auto 1.68 K/mm3 (0.9-3.2); Lymphocytes Percent Auto 40.5 % (18.3-44.2); Mean Corpuscular HGB Conc 31.4 g/dl (32-36); Mean Corpuscular Hemoglobin 26.5 pg (26-34); Mean Corpuscular Volume 84.3 fl (80-100); Mean Platelet Volume 10.1 fl (7.4-10.4); Monocytes Absolute Auto 0.6 K/mm3 (0.1-0.6); Monocytes Percent Auto 14.2 % (2.6-8.5); Neutrophils Absolute Auto 1.5 K/mm3 (1.3-6.7); Neutrophils Percent Auto 34.9 % (45.5-73.1); Platelet Count Result 255 k/mm3 (150-375); Red Blood Count 4.15 M/mm3 (4.2-5.4); Red Cell Distribution Width 14.5 % (11.5-14.5); White Blood Count 4.2 K/mm3 (4.5-10.0)
[2021-07-18 21:02] LABS: Vancomycin Trough 21.5 ug/mL (10.0-20.0)
[2021-07-18 22:28] LABS: Anion Gap 12 mmol/L (8-16); Blood Urea Nitrogen 10 mg/dL (7-17); CRP < 0.5 mg/dL (<1.0); Calcium 9.9 mg/dL (8.4-10.2); Carbon Dioxide 20 mmol/L (22-30); Chloride 108 mmol/L (98-107); Estimated Glomerular Filt Rate > 60; Glucose 149 mg/dL (65-110); Potassium 3.5 mmol/L (3.4-5.0); Sodium 140 mmol/L (137-145)
== END 2021-07-18 09:47 | disposition home or self-care (01) ==
PROVIDERS: PCP Hospitalist; Visit Provider Internal Medicine Infectious Disease
DX: Z45.2 Encounter for adjustment and management of vascular access device (principal); Z79.2 Long term (current) use of antibiotics; T81.42XA Infection following a procedure, deep incisional surgical site, initial encounter; E11.9 Type 2 diabetes mellitus without complications
CPT/HCPCS: 80048; 80202; 85025; 86140

== ENCOUNTER 2021-07-19 17:29 | Emergency (ER) | payer MEDICARE, SELFPAY ==
--- NOTE | ~2021-07-19 | XR_ITS ---
XR chest 1V portable 07/19/2021 21:42 Indication: PICC line evaluation Procedure: AP portable chest Comparison: 06/29/2021 Findings: There is a right IJ central line tip in the SVC. No PICC line is identified. Heart size upp er normal. There are linear infiltrates of the left lower lung which may represent atelectasis or sca rring. There is a right humeral neck fracture with nonunion. No pneumothorax. Impression: 1: Linear left basilar infiltrates, atelectasis versus scarring. Reviewed, dictated and finalized at location A. Impression: 1: Linear left basilar infiltrates, atelectasis versus scarring.
[2021-07-19 17:33] VITALS: BP 171/109; PULSE 80; RESP 20; TEMP 36.8
--- NOTE | 2021-07-19 19:30 | PC.NURSE ---
Pt. stopped this RN after an additional pt. was wheeled across the way in to the waiting room and states excuse me, I don't want him to sit by me if he is covid. RN educated pt. that the individual was not a covid-19 patient, social distance was practiced and both individuals are wearing a mask. Pt also educated that no further medical information would be given.
[2021-07-19 20:57] VITALS: BP 132/94; PULSE 85; RESP 18; TEMP 36.3; O2SAT 96
--- NOTE | 2021-07-19 21:22 | ED.SKABFB ---
HPI - Skin/Abscess/Foreign Bdy General Chief complaint: Skin/Abscess/Foreign Body Stated complaint: swelling above picc line Time Seen by Provider: 07/19/21 21:03 Source: patient, RN notes reviewed and old records reviewed Mode of arrival: ambulatory Limitations: no limitations History of Present Illness HPI narrative: This is a 75 year old female who presents for evaluation of left right IJ catheter. Patient had this right IJ Lemus catheter placed 20 days ago for IV antibiotics for MRSA infection. She reports her home health nurse thought patient had swelling at site of PICC line in right internal jugular. She reports headache, right neck pain that has been present before her line was placed, Patient reports cough for a few days. She denies fever, chills, nausea, vomiting, blurred vision or focal deficit. She also denies shortness of breath. Related Data Home Medications Medication Instructions Recorded Confirmed One-A-Day Womens Formula 1 tablet PO DAILY 09/12/19 07/11/21 aspirin 81 mg PO DAILY 09/12/19 07/11/21 atorvastatin 80 mg PO DAILY 09/12/19 07/11/21 carvedilol 6.25 mg PO DAILY 09/12/19 07/11/21 gabapentin 300 mg PO BID 09/12/19 07/11/21 levothyroxine 125 mcg PO DAILY 09/12/19 07/11/21 losartan 50 mg PO DAILY 09/12/19 07/11/21 metformin 1,000 mg PO DAILY 09/12/19 07/11/21 sertraline 100 mg PO DAILY 09/12/19 07/11/21 Januvia 50 mg PO DAILY 06/01/21 07/11/21 fluticasone propionate 50 1 spray INTRANASAL DAILY 06/01/21 07/11/21 mcg/actuation nasal spray,suspension nabumetone 500 mg PO BID 06/01/21 07/11/21 Allergies Allergy/AdvReac Type Severity Reaction Status Date / Time No Known Allergies Allergy Verified 07/11/21 22:21 Review of Systems Review of Systems: All systems reviewed & are unremarkable except as noted in HPI and below PMFSH Past Medical History Medical History (Updated 07/20/21 @ 00:00 by Background Daemon) Chronic back pain Chronic, continuous use of opioids Deep postoperative wound infection Diabetes Generalized anxiety disorder Hyperlipidemia Hypertension Hypothyroidism Psoriasis Surgical History Surgical History (Updated 07/12/21 @ 04:29 by Jaime Cummins MD) History of back surgery 3 back surgery History of incision and drainage (~06/21/21) Rt Humerus History of right mastectomy S/P ORIF (open reduction internal fixation) fracture (~06/03/21) Plate to right humerus status post right proximal humerus neck fracture Family History Family History Mother Lung cancer Sibling Bone cancer Father Natural with unknown cause Social History Social History Social History: Patient lives with her who has had multiple strokes. She takes care of her . She has 3 children. 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 The patient stated that she used to smoke 30 years ago. Her son Xander Melo is her durable power valve grinder for healthcare. The patient is a full code. The patient denies any alcohol marijuana or illicit drugs. Smoking packs per day: 1 Smoking cigarettes per day: 20.0 Years smoked: 10 Smoking pack-years: 10.00 Smoking status: Former smoker Alcohol intake: never Substance use: never Substance use type: other Other substance usage details: CBD GUMMIES EVERY DAY Spiritual care concerns: No Exam Const: General: no acute distress and alert Orientation/consciousness: patient oriented x3 HENMT: Head: normocephalic, atraumatic and no temporal artery tenderness Ears: TM's normal bilaterally Face and sinus: face symmetric Mouth: Yes Normal oral and palatal mucosa present, Yes lip normal, Yes oropharynx normal and Yes moist mucous membranes Throat: posterior oropharynx normal, tonsils normal and uvula midline Eyes: Pupils: Equal, round and reactive pupils present EOM: EOMs i
[2021-07-19 22:09] LABS: Basophils Absolute Auto 0.1 K/mm3 (0.0-0.1); Basophils Percent Auto 2.6 % (0.2-1.2); Eosinophils Absolute Auto 0.4 K/mm3 (0-0.3); Eosinophils Percent Auto 7.1 % (0-4.4); Hematocrit 37.5 % (37.0-47.0); Hemoglobin 11.7 g/dL (12.0-15.0); Immature Granulocyte Absolute 0.02 K/mm3 (0.00-0.031); Immature Granulocyte Percent A 0.4 % (0-0.5); Lymphocytes Absolute Auto 1.97 K/mm3 (0.9-3.2); Lymphocytes Percent Auto 39.1 % (18.3-44.2); Mean Corpuscular HGB Conc 31.2 g/dl (32-36); Mean Corpuscular Hemoglobin 26.5 pg (26-34); Mean Corpuscular Volume 84.8 fl (80-100); Mean Platelet Volume 9.6 fl (7.4-10.4); Monocytes Absolute Auto 0.7 K/mm3 (0.1-0.6); Monocytes Percent Auto 14.3 % (2.6-8.5); Neutrophils Absolute Auto 1.8 K/mm3 (1.3-6.7); Neutrophils Percent Auto 36.5 % (45.5-73.1); Platelet Count Result 233 k/mm3 (150-375); Red Blood Count 4.42 M/mm3 (4.2-5.4); Red Cell Distribution Width 14.5 % (11.5-14.5)
[2021-07-19 22:30] LABS: Prothrombin Time 13.2 Seconds (11.1-14.7)
[2021-07-19 22:34] LABS: Alanine Aminotransferase 15 U/L (4-35); Albumin Level 4.2 g/dL (3.5-5.1); Alkaline Phosphatase 167 U/L (38-126); Anion Gap 10 mmol/L (8-16); Aspartate Amino Transferase 27 U/L (14-36); Bilirubin,Total 0.5 mg/dL (0.2-1.3); Blood Urea Nitrogen 10 mg/dL (7-17); Carbon Dioxide 25 mmol/L (22-30); Chloride 105 mmol/L (98-107); Estimated CRCL calculation 72 ml/min; Estimated Glomerular Filt Rate > 60; Glucose 164 mg/dL (65-110); Potassium 3.1 mmol/L (3.4-5.0); Sodium 140 mmol/L (137-145)
[2021-07-19 23:23] VITALS: BP 158/90; PULSE 85; RESP 16; O2SAT 95
== END 2021-07-19 23:25 | disposition home or self-care (01) ==
PROVIDERS: Emergency Provider General Practice; PCP Hospitalist
DX: Z45.2 Encounter for adjustment and management of vascular access device (principal); E87.6 Hypokalemia; A49.02 Methicillin resistant Staphylococcus aureus infection, unspecified site; E78.5 Hyperlipidemia, unspecified; E11.9 Type 2 diabetes mellitus without complications; I10 Essential (primary) hypertension; E03.9 Hypothyroidism, unspecified; M54.9 Dorsalgia, unspecified; G89.29 Other chronic pain; Z79.82 Long term (current) use of aspirin; Z79.84 Long term (current) use of oral hypoglycemic drugs; Z90.11 Acquired absence of right breast and nipple; Z87.891 Personal history of nicotine dependence; R91.8 Other nonspecific abnormal finding of lung field
CPT/HCPCS: 36415; 71045; 80053; 85025; 85610; 85730; 99283

== ENCOUNTER 2021-07-21 10:36 | Outpatient (NON) | payer MEDICARE, SELFPAY ==
[2021-07-21 19:33] LABS: Anion Gap 11 mmol/L (8-16); Blood Urea Nitrogen 12 mg/dL (7-17); Carbon Dioxide 24 mmol/L (22-30); Chloride 104 mmol/L (98-107); Estimated Glomerular Filt Rate > 60; Glucose 162 mg/dL (65-110); Potassium 3.2 mmol/L (3.4-5.0); Sodium 139 mmol/L (137-145)
== END 2021-07-21 10:37 | disposition home or self-care (01) ==
LOC: ANHBWCLAB 10:41 → HOME HLTH 10:42
PROVIDERS: PCP Hospitalist; Visit Provider Internal Medicine Infectious Disease
DX: E11.9 Type 2 diabetes mellitus without complications (principal); T81.42XA Infection following a procedure, deep incisional surgical site, initial encounter; Z45.2 Encounter for adjustment and management of vascular access device; Z79.2 Long term (current) use of antibiotics
CPT/HCPCS: 80048

== ENCOUNTER 2021-07-25 11:20 | Outpatient (RCR) | payer MEDICARE, SELFPAY ==
[2021-07-04 09:29] LABS: Anion Gap 8 mmol/L (8-16); Blood Urea Nitrogen 9 mg/dL (7-17); CRP 1.6 mg/dL (<1.0); Calcium 9.4 mg/dL (8.4-10.2); Carbon Dioxide 27 mmol/L (22-30); Chloride 107 mmol/L (98-107); Estimated Glomerular Filt Rate > 60; Glucose 148 mg/dL (65-110); Potassium 3.5 mmol/L (3.4-5.0); Sodium 142 mmol/L (137-145)
[2021-07-04 09:32] LABS: Basophils Absolute Auto 0.1 K/mm3 (0.0-0.1); Basophils Percent Auto 1.6 % (0.2-1.2); Eosinophils Absolute Auto 0.2 K/mm3 (0-0.3); Eosinophils Percent Auto 3.8 % (0-4.4); Hematocrit 32.1 % (37.0-47.0); Hemoglobin 9.9 g/dL (12.0-15.0); Immature Granulocyte Absolute 0.02 K/mm3 (0.00-0.031); Immature Granulocyte Percent A 0.4 % (0-0.5); Lymphocytes Absolute Auto 1.65 K/mm3 (0.9-3.2); Lymphocytes Percent Auto 30.2 % (18.3-44.2); Mean Corpuscular HGB Conc 30.8 g/dl (32-36); Mean Corpuscular Hemoglobin 26.3 pg (26-34); Mean Corpuscular Volume 85.4 fl (80-100); Mean Platelet Volume 11.1 fl (7.4-10.4); Monocytes Absolute Auto 0.6 K/mm3 (0.1-0.6); Monocytes Percent Auto 10.4 % (2.6-8.5); Neutrophils Absolute Auto 2.9 K/mm3 (1.3-6.7); Neutrophils Percent Auto 53.6 % (45.5-73.1); Platelet Count Result 173 k/mm3 (150-375); Red Blood Count 3.76 M/mm3 (4.2-5.4); Red Cell Distribution Width 14.2 % (11.5-14.5); White Blood Count 5.5 K/mm3 (4.5-10.0)
[2021-07-04 09:45] LABS: Vancomycin Trough 22.7 ug/mL (10.0-20.0)
[2021-07-11 12:56] LABS: Vancomycin Trough 17.5 ug/mL (10.0-20.0)
[2021-07-11 14:14] LABS: Basophils Absolute Auto 0.1 K/mm3 (0.0-0.1); Eosinophils Absolute Auto 0.3 K/mm3 (0-0.3); Hematocrit 33.3 % (37.0-47.0); Hemoglobin 10.4 g/dL (12.0-15.0); Immature Granulocyte Absolute 0.02 K/mm3 (0.00-0.031); Immature Granulocyte Percent A 0.4 % (0-0.5); Lymphocytes Absolute Auto 1.34 K/mm3 (0.9-3.2); Lymphocytes Percent Auto 29.4 % (18.3-44.2); Mean Corpuscular HGB Conc 31.2 g/dl (32-36); Mean Corpuscular Volume 86.5 fl (80-100); Mean Platelet Volume 10.5 fl (7.4-10.4); Monocytes Absolute Auto 0.6 K/mm3 (0.1-0.6); Monocytes Percent Auto 12.5 % (2.6-8.5); Neutrophils Absolute Auto 2.2 K/mm3 (1.3-6.7); Neutrophils Percent Auto 48.7 % (45.5-73.1); Platelet Count Result 194 k/mm3 (150-375); Red Blood Count 3.85 M/mm3 (4.2-5.4); Red Cell Distribution Width 14.5 % (11.5-14.5); White Blood Count 4.6 K/mm3 (4.5-10.0)
[2021-07-11 14:21] LABS: Anion Gap 7 mmol/L (8-16); Blood Urea Nitrogen 12 mg/dL (7-17); CRP 1.4 mg/dL (<1.0); Calcium 9.2 mg/dL (8.4-10.2); Carbon Dioxide 27 mmol/L (22-30); Chloride 108 mmol/L (98-107); Estimated Glomerular Filt Rate > 60; Glucose 136 mg/dL (65-110); Sodium 142 mmol/L (137-145)
[2021-07-11 15:13] LABS: Potassium 2.8 mmol/L (3.4-5.0)
[2021-07-25 11:38] LABS: Basophils Absolute Auto 0.1 K/mm3 (0.0-0.1); Basophils Percent Auto 2.5 % (0.2-1.2); Eosinophils Absolute Auto 0.4 K/mm3 (0-0.3); Eosinophils Percent Auto 7.6 % (0-4.4); Hematocrit 35.3 % (37.0-47.0); Hemoglobin 11.1 g/dL (12.0-15.0); Immature Granulocyte Absolute 0.02 K/mm3 (0.00-0.031); Immature Granulocyte Percent A 0.4 % (0-0.5); Lymphocytes Absolute Auto 1.74 K/mm3 (0.9-3.2); Lymphocytes Percent Auto 33.1 % (18.3-44.2); Mean Corpuscular HGB Conc 31.4 g/dl (32-36); Mean Corpuscular Hemoglobin 26.9 pg (26-34); Mean Corpuscular Volume 85.5 fl (80-100); Mean Platelet Volume 10.3 fl (7.4-10.4); Monocytes Absolute Auto 0.6 K/mm3 (0.1-0.6); Neutrophils Absolute Auto 2.3 K/mm3 (1.3-6.7); Neutrophils Percent Auto 44.4 % (45.5-73.1); Platelet Count Result 244 k/mm3 (150-375); Red Blood Count 4.13 M/mm3 (4.2-5.4); Red Cell Distribution Width 14.5 % (11.5-14.5); White Blood Count 5.3 K/mm3 (4.5-10.0)
[2021-07-25 11:55] LABS: Vancomycin Trough 15.2 ug/mL (10.0-20.0)
[2021-07-25 13:19] LABS: Anion Gap 9 mmol/L (8-16); Blood Urea Nitrogen 11 mg/dL (7-17); CRP 0.7 mg/dL (<1.0); Calcium 9.5 mg/dL (8.4-10.2); Carbon Dioxide 27 mmol/L (22-30); Chloride 104 mmol/L (98-107); Estimated Glomerular Filt Rate > 60; Glucose 163 mg/dL (65-110); Potassium 3.4 mmol/L (3.4-5.0); Sodium 140 mmol/L (137-145)
== END 2021-10-02 23:59 | disposition home or self-care (01) ==
LOC: HOME HLTH 11:20
PROVIDERS: PCP Hospitalist; Visit Provider Hospitalist
DX: T81.42XD Infection following a procedure, deep incisional surgical site, subsequent encounter (principal); E11.9 Type 2 diabetes mellitus without complications; Z79.2 Long term (current) use of antibiotics
CPT/HCPCS: 80048; 80202; 85025; 86140

== ENCOUNTER 2021-07-28 13:56 | Outpatient (NON) | payer MEDICARE, SELFPAY ==
[2021-07-28 14:11] LABS: Anion Gap 11 mmol/L (8-16); Blood Urea Nitrogen 13 mg/dL (7-17); Calcium 9.2 mg/dL (8.4-10.2); Carbon Dioxide 24 mmol/L (22-30); Chloride 105 mmol/L (98-107); Estimated Glomerular Filt Rate > 60; Glucose 210 mg/dL (65-110); Potassium 3.5 mmol/L (3.4-5.0); Sodium 140 mmol/L (137-145)
== END 2021-07-28 13:57 | disposition home or self-care (01) ==
LOC: HOME HLTH 13:59
PROVIDERS: PCP Hospitalist; Visit Provider Internal Medicine Infectious Disease
DX: Z45.2 Encounter for adjustment and management of vascular access device (principal); Z79.2 Long term (current) use of antibiotics; T81.42XA Infection following a procedure, deep incisional surgical site, initial encounter
CPT/HCPCS: 80048

== ENCOUNTER 2021-08-01 11:05 | Outpatient (NON) | payer MEDICARE, SELFPAY ==
[2021-08-01 12:34] LABS: Basophils Absolute Auto 0.1 K/mm3 (0.0-0.1); Basophils Percent Auto 2.2 % (0.2-1.2); Eosinophils Absolute Auto 0.4 K/mm3 (0-0.3); Eosinophils Percent Auto 8.2 % (0-4.4); Hematocrit 36.6 % (37.0-47.0); Hemoglobin 11.3 g/dL (12.0-15.0); Immature Granulocyte Absolute 0.02 K/mm3 (0.00-0.031); Immature Granulocyte Percent A 0.4 % (0-0.5); Lymphocytes Absolute Auto 1.42 K/mm3 (0.9-3.2); Lymphocytes Percent Auto 28.4 % (18.3-44.2); Mean Corpuscular HGB Conc 30.9 g/dl (32-36); Mean Corpuscular Hemoglobin 26.3 pg (26-34); Mean Corpuscular Volume 85.1 fl (80-100); Mean Platelet Volume 10.2 fl (7.4-10.4); Monocytes Absolute Auto 0.4 K/mm3 (0.1-0.6); Monocytes Percent Auto 8.6 % (2.6-8.5); Neutrophils Absolute Auto 2.6 K/mm3 (1.3-6.7); Neutrophils Percent Auto 52.2 % (45.5-73.1); Platelet Count Result 205 k/mm3 (150-375); Red Cell Distribution Width 14.4 % (11.5-14.5)
[2021-08-01 13:41] LABS: Anion Gap 9 mmol/L (8-16); Blood Urea Nitrogen 12 mg/dL (7-17); Calcium 9.4 mg/dL (8.4-10.2); Carbon Dioxide 27 mmol/L (22-30); Chloride 104 mmol/L (98-107); Estimated Glomerular Filt Rate > 60; Glucose 273 mg/dL (65-110); Potassium 3.4 mmol/L (3.4-5.0); Sodium 140 mmol/L (137-145)
[2021-08-01 13:56] LABS: Vancomycin Trough 17.2 ug/mL (10.0-20.0)
== END 2021-08-01 11:06 | disposition home or self-care (01) ==
LOC: HOME HLTH 11:13
PROVIDERS: PCP Hospitalist; Visit Provider Hospitalist
DX: Z45.2 Encounter for adjustment and management of vascular access device (principal); Z79.2 Long term (current) use of antibiotics; E11.9 Type 2 diabetes mellitus without complications; T81.42XA Infection following a procedure, deep incisional surgical site, initial encounter
CPT/HCPCS: 80048; 80202; 85025; 86140

== ENCOUNTER 2021-09-27 13:49 | Emergency (ER) | payer MEDICARE, SELFPAY ==
--- NOTE | ~2021-09-27 | XR_ITS ---
EXAMINATION: XR chest 2V DATE: 09/27/2021 14:10 INDICATION: Cough. TECHNIQUE: Frontal and lateral views of the chest were obtained. COMPARISON: Chest single view 07/19/2021 FINDINGS: There is mild scarring at the lung apices. There is mild atelectasis in lingula. No pleural effusion or pneumothorax. Cardiomegaly is noted. Surgical clips overlie right axilla. There are govea ges of posterior fusion procedure in lumbar spine. IMPRESSION: 1. Mild atelectasis in lingula and mild scarring at the lung apices. 2. Cardiomegaly. Reviewed, dictated and finalized at location A. PUMPER
--- NOTE | 2021-09-27 13:54 | ED.URI ---
HPI - URI/Sore Throat General Chief Complaint: Upper Respiratory Infection Stated Complaint: ear chest tight runny nose Time Seen by Provider: 09/27/21 13:54 Source: patient and RN notes reviewed History of Present Illness HPI Narrative: Patient is 66-year-old female who presents the urgent care with complaints bilateral ear pain, chest congestion, runny nose and cough. Patient states that she was admitted to the hospital in May for MRSA and was there for 32 days. Patient states that her symptoms have been ongoing since then. States that her doctor knows about her symptoms but has not treated her or given her a chest x-ray. Patient denies of any fevers. States that she has been Covid vaccinated. Patient has been using [id number] cough suppressants without much relief. No other acute complaints. No acute distress noted. Patient read the plan of care. Some parts of this dictation were generated by voice recognition software and may contain typographical and/or grammatical inaccuracies. Related Data Home Medications Medication Instructions Recorded Confirmed One-A-Day Womens Formula 1 tablet PO DAILY 09/12/19 09/27/21 aspirin 81 mg PO DAILY 09/12/19 09/27/21 atorvastatin 80 mg PO DAILY 09/12/19 09/27/21 carvedilol 6.25 mg PO DAILY 09/12/19 09/27/21 gabapentin 300 mg PO BID 09/12/19 09/27/21 levothyroxine 125 mcg PO DAILY 09/12/19 09/27/21 losartan 50 mg PO DAILY 09/12/19 09/27/21 metformin 1,000 mg PO DAILY 09/12/19 09/27/21 sertraline 100 mg PO DAILY 09/12/19 09/27/21 Januvia 50 mg PO DAILY 06/01/21 09/27/21 fluticasone propionate 50 1 spray INTRANASAL DAILY 06/01/21 09/27/21 mcg/actuation nasal spray,suspension nabumetone 500 mg PO BID 06/01/21 09/27/21 Allergies Allergy/AdvReac Type Severity Reaction Status Date / Time No Known Allergies Allergy Verified 09/27/21 14:04 Review of Systems Review of Systems: CONSTITUTIONAL: Denies fever, chills, or sweats. EYES: Denies visual changes, redness, or discharge. ENT: Reports of runny nose and bilateral otalgia CARDIOVASCULAR: Denies chest pain, palpitations, or edema. RESPIRATORY: Reports of cough and chest congestion with intermittent dyspnea GASTROINTESTINAL: Denies abdominal pain, nausea, vomiting, or diarrhea. GENITOURINARY: Denies dysuria or hematuria. SKIN: Denies rash or itching. MUSCULOSKELETAL: Denies back pain, joint pain, or myalgia. NEUROLOGIC: Denies headache, numbness, or weakness. All other systems reviewed are negative, except as documented in HPI. [facility] Past Medical History Medical History Chronic back pain Chronic, continuous use of opioids Deep postoperative wound infection Diabetes Generalized anxiety disorder Hyperlipidemia Hypertension Hypothyroidism Psoriasis Surgical History Surgical History History of back surgery 3 back surgery History of incision and drainage (~06/21/21) Rt Humerus History of right mastectomy S/P ORIF (open reduction internal fixation) fracture (~06/03/21) Plate to right humerus status post right proximal humerus neck fracture Family History Family History Mother Lung cancer Sibling Bone cancer Father Natural with unknown cause Social History Social History Social History: Patient lives with her who has had multiple strokes. She takes care of her . She has 3 children. 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 The patient stated that she used to smoke 30 years ago. Her son Xander Melo is her durable power deputy commonwealth's attorney for healthcare. The patient is a full code. The patient denies any alcohol marijuana or illicit drugs. Smoking packs per day: 1 Smoking cigarettes per day: 20.0 Years smoked: 10 Smoking pack-years: 10.00 Sm
[2021-09-27 13:56] VITALS: BP 151/80; PULSE 89; RESP 20; TEMP 36.7; O2SAT 96
== END 2021-09-27 14:30 | disposition home or self-care (01) ==
PROVIDERS: Emergency Provider Nurse Practitioner Family; PCP Family Medicine
DX: J40 Bronchitis, not specified as acute or chronic (principal); Z79.82 Long term (current) use of aspirin; E11.9 Type 2 diabetes mellitus without complications; E03.9 Hypothyroidism, unspecified; L40.9 Psoriasis, unspecified; Z87.891 Personal history of nicotine dependence
CPT/HCPCS: 71046; 99213; G0463

== ENCOUNTER 2021-11-14 08:53 | Outpatient (CLI) | payer MEDICARE, SELFPAY ==
--- NOTE | 2021-11-14 09:13 | ECHO_ITS ---
Patient Info Name: Wendy Stokes Age: 75 years : 1945 Gender: Female Ht: 63 in Wt: 195 lbs BSA: 2.02 m2 HR: 71 bpm BP: 129 / 85 mmHg Heart Rhythm: Sinus Rhythm Technical Quality: Good Exam Date: 11/14/2021 9:23 AM Exam Location: [facility] Patient Status: Outpatient Admit Date: 11/14/2021 Staff Ordering Physician: Brijesh Cardenas MD Party Plan Sales Agent: Lupe Mcfarlane RDCS Attending Provider: Brijesh Cardenas MD Referring Physician: Ronald CASON; Exam Type: CA echo doppler color flow Study Info Indications I51.7 - Cardiomegaly Complete two-dimensional, color flow and Doppler transthoracic echocardiogram is performed. Summary 1. Complete two-dimensional, color flow and Doppler transthoracic echocardiogram is performed. 2. Left ventricular chamber dimension is moderately enlarged. 3. Left ventricular systolic function is severely reduced, estimated at 30-35%. 4. The left ventricular diastolic function is grade I diastolic dysfunction. 5. E/e' 6 is not elevated. 6. Left atrial chamber dimension is mildly enlarged. 7. There is mild aortic valve sclerosis. 8. There is mild mitral valve regurgitation. Left Ventricle E/e' 6 is not elevated. Left ventricular chamber dimension is moderately enlarged. Left ventricular systolic function is severely reduced, estimated at 30-35%. The left ventricular diastolic function is grade I diastolic dysfunction. Right Ventricle Right ventricular systolic function is normal and with normal TAPSE 1.8 cm. Right ventricular chamber dimension is normal. Left Atria Left atrial chamber dimension is mildly enlarged. Right Atria Right atrial chamber dimension is normal. Aortic Valve The aortic valve is trileaflet. There is mild aortic valve sclerosis. There is no aortic valve stenosis. There is no aortic valve regurgitation. Pulmonic Valve There is no pulmonic regurgitation. Mitral Valve There is no mitral valve stenosis. There is mild mitral valve regurgitation. Tricuspid Valve There is no tricuspid valve regurgitation. Pericardium/Pleural There is no pericardial effusion. Inferior Vena Cava Normal inferior vena cava with >50% collapse upon inspiration consistent with normal right atrial pressure, 5 mmHg. Aorta The aortic root size at the sinus of Valsalva is normal. Left Ventricular Outflow Tract Name Value Normal LVOT 2D LVOT Diameter 2.1 cm LVOT Doppler LVOT Peak Gradient 2 mmHg LVOT Mean Gradient 1 mmHg LVOT VTI 13 cm LVOT VTI/AV VTI Ratio 0.4 LVOT Stroke Volume 44 ml LVOT CO 3.1 l/min LVOT CI 1.5 l/min/m2 Pulmonic Valve Name Value Normal RVOT Doppler
== END 2021-11-14 08:54 | disposition home or self-care (01) ==
PROVIDERS: PCP Family Medicine; Visit Provider Family Medicine
DX: I34.0 Nonrheumatic mitral (valve) insufficiency (principal); I70.0 Atherosclerosis of aorta; I51.7 Cardiomegaly
CPT/HCPCS: 93306

== ENCOUNTER 2022-02-13 07:49 | Outpatient (CLI) | payer MEDICARE, SELFPAY ==
--- NOTE | 2022-02-15 12:21 | WPDHOMESLEEP ---
Sleep Study - Home Unattended Date of Study: 02/13/22 Ordering Provider: Khoa Campbell DO Interpreting Provider: Ruth Romero DO Home Sleep Study Type: Apnea Link Air Height: 1.6 m Weight: 87.543 kg Body Mass Index: 34.2 Neck Circumference (inches): 17 [place]: 10 Reason for Sleep Study Evaluation of AALIYAH Sleep History The patient is a 76-year-old female who diabetes hypertension, hyperlipidemia hypothyroidism congestive heart failure with reduced ejection fraction, anxiety, history of tobacco abuse and psoriasis who had a sleep study ordered health lead for evaluation sleep apnea. The patient rarely awakens from sleep short of breath. She rarely awakens at night with heartburn, belching or cough. She denies snoring loudly enough others complain. She rarely has trouble sleeping when she has a cold. She denies waking gasping for air throughout the night. She denies having breathing problems at night observed by herself or others. She denies sweating excessively night. She denies having heart palpitations or irregular heartbeats during the. She occasionally falls asleep during the day but never while driving. She denies sleep paralysis, cataplexy and hypnagogic / hypnopompic hallucinations. She denies feeling afraid of going to sleep. She denies having. She occasionally remembers her dreams. She occasionally has thoughts racing through her mind. She occasionally feels sad or depressed. She frequently has anxiety. She occasionally has muscular tension. She denies noticing parts of her body jerk. She denies kicking during the night. She occasionally has crawling and aching feelings in her legs and occasionally has leg pain during the night. She denies grinding her teeth during sleep and awakening with morning jaw pain. She is frequently bothered by pain during the day and occasionally awakened by pain during the night. She frequently wakes up feeling stiff in morning. She frequently wakes up with sore and achy muscles. She occasionally wakes up pain in the neck, spine and other joints. She goes to bed at 10:30 p.m. on weekdays and between 11 and 11:30 p.m. on the weekends. He can take her 2 hours to fall asleep. She wakes up 1-2 times throughout the night. When she awakens she will read. She falls asleep within 30 minutes. She wakes up at 9:00 a.m. on weekdays and 8:30 a.m. on the weekends. She will stay in bed for 10 minutes after waking up in morning. She currently lives with her , son, [id number] and grandson. She does not consume any caffeinated beverages within 2 hours of bedtime. She does not engage in physical exercise before. She will read before falling asleep. She will take naps in the afternoon or the evening and they are refreshing. She will drink 1 cup of caffeinated beverage per day. She quit smoking cigarettes over 30 years ago. She denies alcohol use. She will use CBD gummies daily. [facility] Past Medical History Medical History BMI 34.0-34.9,adult Breast cancer Cardiomegaly Chronic back pain Chronic, continuous use of opioids Cough Deep postoperative wound infection Degenerative lumbar disc Diabetes Diabetes type 2, controlled Diabetes type 2, uncontrolled Generalized anxiety disorder Hyperlipidemia Hypertension Hypothyroidism Iron deficiency Psoriasis RBC microcytosis Surgical History Surgical History H/O total mastectomy of right breast History of back surgery 3 back surgery History of incision and drainage (~06/21/21) Rt Humerus History of right mastectomy S/P ORIF (open reduction internal fixation) fracture (~06/03/21) Plate to right humerus status post right proximal humerus neck fracture Family History Family History Mother Lung cancer Sibling Bone cancer Father Natural with unk
[2022-02-15 12:41] VITALS: BMI 34.2
== END 2022-02-14 14:47 | disposition home or self-care (01) ==
LOC: ANHCSM 07:52
PROVIDERS: PCP Family Medicine; Visit Provider Internal Medicine Cardiovascular Disease
DX: G47.10 Hypersomnia, unspecified (principal); G47.33 Obstructive sleep apnea (adult) (pediatric)
CPT/HCPCS: 95806

== ENCOUNTER 2022-03-16 07:49 | Outpatient (CLI) | payer MEDICARE, SELFPAY ==
--- NOTE | 2022-04-10 13:51 | WPDSLEEPSTUD ---
Sleep Study Date of Study: 03/16/22 Ordering Provider: Khoa Campbell DO Interpreting Physician: Ruth Romero DO Sleep Study Type: CPAP Titration Height: 1.6 m Weight: 87.09 kg Body Mass Index: 34.0 Neck Circumference (inches): 15.5 [place]: 10 Reason for Sleep Study The patient had a HSAT on 02/13/2022 that showed an overall AHI of 29 with desaturation down to 81%. Due to her multiple co-morbidities, it was recommended that she have a PAP Titration study. Sleep History The patient is a 76-year-old female who diabetes hypertension, hyperlipidemia hypothyroidism congestive heart failure with reduced ejection fraction, anxiety, history of tobacco abuse and psoriasis who had a sleep study ordered logistics research engineer for evaluation sleep apnea.? The patient rarely awakens from sleep short of breath.? She rarely awakens at night with heartburn, belching or cough.? She denies snoring loudly enough others complain.? She rarely has trouble sleeping when she has a cold.? She denies waking gasping for air throughout the night.? She denies having breathing problems at night observed by herself or others.? She denies sweating excessively night.? She denies having heart palpitations or irregular heartbeats during the.? She occasionally falls asleep during the day but never while driving.? She denies sleep paralysis, cataplexy and hypnagogic / hypnopompic hallucinations.? She denies feeling afraid of going to sleep.? She denies having.? She occasionally remembers her dreams.? She occasionally has thoughts racing through her mind.? She occasionally feels sad or depressed.? She frequently has anxiety.? She occasionally has muscular tension.? She denies noticing parts of her body jerk.? She denies kicking during the night.? She occasionally has crawling and aching feelings in her legs and occasionally has leg pain during the night.? She denies grinding her teeth during sleep and awakening with morning jaw pain.? She is frequently bothered by pain during the day and occasionally awakened by pain during the night.? She frequently wakes up feeling stiff in morning.? She frequently wakes up with sore and achy muscles.? She occasionally wakes up pain in the neck, spine and other joints.? She goes to bed at 10:30 p.m. on weekdays and between 11 and 11:30 p.m. on the weekends.? He can take her 2 hours to fall asleep.? She wakes up 1-2 times throughout the night.? When she awakens she will read.? She falls asleep within 30 minutes.? She wakes up at 9:00 a.m. on weekdays? and 8:30 a.m. on the weekends.? She will stay in bed for 10 minutes after waking up in morning.? She currently lives with her , son, [id number] and grandson.? She does not consume any caffeinated beverages within 2 hours of bedtime.? She does not engage in physical exercise before.? She will read before falling asleep.? She will take naps in the afternoon or the evening and they are refreshing. She will drink 1 cup of caffeinated beverage per day.? She quit smoking cigarettes over 30 years ago.? She denies alcohol use. She will use CBD gummies daily. [facility] Past Medical History Medical History BMI 34.0-34.9,adult Breast cancer Cardiomegaly Chronic back pain Chronic, continuous use of opioids Cough Deep postoperative wound infection Degenerative lumbar disc Diabetes Diabetes type 2, controlled Diabetes type 2, uncontrolled Generalized anxiety disorder Hyperlipidemia Hypertension Hypothyroidism Iron deficiency Psoriasis RBC microcytosis Surgical History Surgical History H/O total mastectomy of right breast History of back surgery 3 back surgery History of incision and drainage (~06/21/21) Rt Humerus History of right mastectomy S/P ORIF (open reduction internal fixation) fracture (~06/03/21) Plate to right humerus status post right proximal humerus neck fracture Family Hist
[2022-04-10 13:52] VITALS: BMI 34.0
--- NOTE | 2022-08-31 11:05 | SLEEP ---
pt is not doing well she can barely sleep 2 hrs with device.
== END 2022-03-17 06:57 | disposition home or self-care (01) ==
LOC: ANHCSM 07:55
PROVIDERS: PCP Family Medicine; Visit Provider Internal Medicine Cardiovascular Disease
DX: G47.33 Obstructive sleep apnea (adult) (pediatric) (principal)
CPT/HCPCS: 95811

== ENCOUNTER 2022-03-17 08:24 | Outpatient (CLI) | payer MEDICARE, SELFPAY ==
--- NOTE | 2022-03-17 08:35 | ECHO_ITS ---
Patient Info Name: Wendy Stokes Age: 76 years : 1945 Gender: Female Ht: 63 in Wt: 193 lbs BSA: 2.01 m2 HR: 64 bpm BP: 118 / 69 mmHg Technical Quality: Fair Exam Date: 03/17/2022 9:01 AM Exam Location: [facility] Patient Status: Outpatient Admit Date: 03/17/2022 Staff Ordering Physician: Khoa Campbell DO Test Desk Trouble Locator: Fela Bhardwaj RDCS Attending Provider: hKoa Campbell DO Referring Physician: Adrian LINDSEY; Exam Type: CA echo doppler color flow Study Info Indications I51.9 - Heart disease, unspecified Complete two-dimensional, color flow and Doppler transthoracic echocardiogram is performed. Summary 1. Complete two-dimensional, color flow and Doppler transthoracic echocardiogram is performed. 2. Left ventricular chamber dimension is mildly enlarged. 3. Left ventricular systolic function is moderately reduced, estimated at 40-45%. 4. There is moderately increased left ventricular wall thickness. 5. The left ventricular diastolic function is grade I diastolic dysfunction. 6. E/e' 7 is not elevated. 7. Global longitudinal strain is abnormal at -11.7%. 8. Left atrial chamber dimension is mildly enlarged. 9. There is moderate aortic valve sclerosis. 10. There is trace mitral valve regurgitation. 11. There is trace tricuspid valve regurgitation. 12. No pulmonary hypertension, estimated pulmonary arterial systolic pressure is 34 mmHg. Left Ventricle E/e' 7 is not elevated. Global longitudinal strain is abnormal at -11.7%. Left ventricular chamber dimension is mildly enlarged. Left ventricular systolic function is moderately reduced, estimated at 40-45%. There is moderately increased left ventricular wall thickness. The left ventricular diastolic function is grade I diastolic dysfunction. Right Ventricle Right ventricular systolic function is normal and with normal TAPSE 1.9 cm. Right ventricular chamber dimension is normal. Left Atria Left atrial chamber dimension is mildly enlarged. Right Atria Right atrial chamber dimension is normal. Aortic Valve The aortic valve is trileaflet. There is moderate aortic valve sclerosis. There is no aortic valve stenosis. There is no aortic valve regurgitation. Pulmonic Valve There is no pulmonic regurgitation. Mitral Valve There is no mitral valve stenosis. There is trace mitral valve regurgitation. Tricuspid Valve There is trace tricuspid valve regurgitation. No pulmonary hypertension, estimated pulmonary arterial systolic pressure is 34 mmHg. Pericardium/Pleural There is no pericardial effusion. Inferior Vena Cava Normal inferior vena cava with >50% collapse upon inspiration consistent with normal right atrial pressure, 5 mmHg. Aorta The aortic root size at the sinus of Valsalva is normal. Left Ventricular Outflow Tract Name Value Normal LVOT 2D LVOT Diameter 2.0 cm LVOT Doppler LVOT Peak Gradient 5 mmHg LVOT Mean Gradient 3 mmHg LVOT VTI 22 cm LVOT VTI/AV VTI Ratio 0.7 LVOT Stroke V
== END 2022-03-17 08:25 | disposition home or self-care (01) ==
PROVIDERS: PCP Family Medicine; Visit Provider Internal Medicine Cardiovascular Disease
DX: I51.9 Heart disease, unspecified (principal); I51.7 Cardiomegaly; I35.8 Other nonrheumatic aortic valve disorders
CPT/HCPCS: 93306

== ENCOUNTER 2022-03-30 10:23 | Outpatient (CLI) | payer MEDICARE, SELFPAY ==
--- NOTE | ~2022-03-30 | NM_ITS ---
EXAMINATION: NM luz stress w perfusion DATE: 03/31/2022 10:36 CDT INDICATION: Heart disease. TECHNIQUE: Rest images were obtained following intravenous administration of 10 mCi Tc99m tetrofosmin (Myoview). The patient was infused intravenously with Lexiscan (regadenoson). Then, 31 mCi Tc99m tet rofosmin (Myoview) was administered intravenously, and stress images were obtained. Data was reconstr ucted into short axis and horizontal and vertical long axis SPECT images. Gated SPECT images were als o obtained. COMPARISON: None. FINDINGS: There are reversible anterior, lateral and inferior wall defects, consistent with ischemia. There is mild global hypokinesis.. Left ventricular ejection fraction measures 50%. IMPRESSION: 1. Mild reversible perfusion abnormalities of the anterior, lateral and inferior left ventricular wal ls, consistent with ischemia. 2. Diminished left ventricular ejection fraction measuring 50%. Reviewed, dictated and finalized at location A. IMPRESSION: 1. Mild reversible perfusion abnormalities of the anterior, lateral and inferio r left ventricular graves, consistent with ischemia. 2. Diminished left ventricular ejection fraction measuring 50%.
--- NOTE | 2022-03-30 10:47 | EST_ITS ---
Patient Info Name: Wendy Stokes Age: 76 years : 1945 Gender: Female Ht: 63 in Wt: 191 lbs BSA: 2.00 m2 HR: 65 bpm BP: 121 / 79 mmHg Heart Rhythm: Sinus Rhythm Exam Date: 03/30/2022 11:53 AM Exam Location: [facility] Stress Patient Status: Outpatient Admit Date: 03/30/2022 Staff Ordering Physician: Khoa Campbell DO Attending Provider: Khoa Campbell DO Exercise Technologist: Radha Carr CT Exercise Physician: Khoa Campbell DO Exam Type: CA stress luz w NM Study Info Indications I50.22 - Chronic systolic (congestive) heart failure A regadenoson stress test was performed. Summary 1. 1. Negative lexiscan stress test for ischemic ST changes by ECG criteria. 2. 2. Stable hemodynamics throughout the test. 3. 3. Nuclear scan to follow and will be reported separately. Please correlate with it. 4. 4. Patient informed of the above results. Protocol: Lexiscan Stress ECG Details Stage: REST Duration (min): 1 min : 43 sec HR (bpm): 64 SBP (mmHg): 121 DBP (mmHg): 79 Stage: REST Duration (min): 5 min : 53 sec HR (bpm): 68 SBP (mmHg): 121 DBP (mmHg): 79 Stage: STAGE 1 Duration (min): 1 min : 0 sec HR (bpm): 70 SBP (mmHg): 116 DBP (mmHg): 78 Stage: RECOVERY Duration (min): 1 min : 0 sec HR (bpm): 88 SBP (mmHg): 116 DBP (mmHg): 78 Stage: RECOVERY Duration (min): 2 min : 0 sec HR (bpm): 82 SBP (mmHg): 116 DBP (mmHg): 78 Stage: RECOVERY Duration (min): 3 min : 0 sec HR (bpm): 79 SBP (mmHg): 111 DBP (mmHg): 71 Stage: RECOVERY Duration (min): 3 min : 7 sec HR (bpm): 84 SBP (mmHg): 111 DBP (mmHg): 71 Rest HR: 68 bpm Peak HR: 101 bpm Rest Sys BP: 121 mmHg Peak Sys BP: 116 mmHg Max Pred HR: 143 bpm % Max Pred HR: 71 % Target HR: 122 bpm Max RPP: 11,716 bpm*mmHg Termination Reason: Completed protocol Cardiac Symptoms: Shortness of breath Total Time: 1 min : 0 sec Rest Montez BP: 79 mmHg Peak Montez BP: 78 mmHg Total Dose: 0.4 mg Resting ECG Sinus rhythm, IVCD, delayed precordial R/S transition, borderline ST-T wave in diffuse leads. Stress ECG No ST changes. Arrhythmias None. Report Signatures
== END 2022-03-30 10:24 | disposition home or self-care (01) ==
PROVIDERS: PCP Family Medicine; Visit Provider Internal Medicine Cardiovascular Disease
DX: I50.20 Unspecified systolic (congestive) heart failure (principal); I51.9 Heart disease, unspecified
CPT/HCPCS: 78452; 93017; A9502; J2785

== ENCOUNTER 2022-04-12 15:05 | Outpatient (CLI) | payer MEDICARE, SELFPAY ==
--- NOTE | ~2022-04-12 | XR_ITS ---
XR foot RT 2V DATE: 04/12/2022 15:31 INDICATION: Possible foreign body, lateral fifth digit area TECHNIQUE: AP and lateral views COMPARISON: None FINDINGS: No radiopaque soft tissue foreign body is detected. There is severe osteoarthritic change at the first metatarsophalangeal joint. Prominent plantar calcaneal enthesopathy with adjacent prominent dystrophic calcification. No fracture, dislocation, periosteal reaction or bone destruction is evident. IMPRESSION: No radiopaque soft tissue foreign body is detected Severe osteoarthritis, first metatarsophalangeal joint Prominent plantar calcaneal enthesopathy and adjacent dystrophic calcification Reviewed, dictated and finalized at location B.
== END 2022-04-12 15:06 | disposition home or self-care (01) ==
PROVIDERS: PCP Family Medicine; Visit Provider Nurse Practitioner Family
DX: M19.071 Primary osteoarthritis, right ankle and foot (principal); M79.5 Residual foreign body in soft tissue; M77.31 Calcaneal spur, right foot
CPT/HCPCS: 73620

== ENCOUNTER 2022-04-21 01:48 | Day surgery (SDC) | payer MEDICARE, SELFPAY ==
[2022-04-20 15:42] VITALS: BMI 34.7
[2022-04-21] VITALS (9 sets, daily range): BP systolic 105–144; BP diastolic 60–83; PULSE 51–67; RESP 14–16; TEMP 36–36.9; O2SAT 91–95; BMI 34.4
[2022-04-21 08:08] LABS: Basophils Absolute Auto 0.1 K/mm3 (0.0-0.1); Basophils Percent Auto 1.4 % (0.2-1.2); Eosinophils Absolute Auto 0.2 K/mm3 (0-0.3); Eosinophils Percent Auto 3.2 % (0-4.4); Hematocrit 48.4 % (37.0-47.0); Hemoglobin 15.1 g/dL (12.0-15.0); Immature Granulocyte Absolute 0.02 K/mm3 (0.00-0.031); Immature Granulocyte Percent A 0.3 % (0-0.5); Lymphocytes Absolute Auto 2.18 K/mm3 (0.9-3.2); Mean Corpuscular HGB Conc 31.2 g/dl (32-36); Mean Corpuscular Hemoglobin 26.5 pg (26-34); Mean Corpuscular Volume 85.1 fl (80-100); Mean Platelet Volume 10.5 fl (7.4-10.4); Monocytes Absolute Auto 0.6 K/mm3 (0.1-0.6); Neutrophils Absolute Auto 2.8 K/mm3 (1.3-6.7); Neutrophils Percent Auto 48.1 % (45.5-73.1); Platelet Count Result 153 k/mm3 (150-375); Red Blood Count 5.69 M/mm3 (4.2-5.4); Red Cell Distribution Width 14.6 % (11.5-14.5); White Blood Count 5.9 K/mm3 (4.5-10.0)
[2022-04-21] MEDS: SODIUM CHLORIDE 0.9% IV 500 ML 100 ML IV CONT (08:15)
[2022-04-21 08:23] LABS: Anion Gap 9 mmol/L (8-16); Blood Urea Nitrogen 16 mg/dL (7-17); Calcium 9.7 mg/dL (8.4-10.2); Carbon Dioxide 24 mmol/L (22-30); Chloride 103 mmol/L (98-107); Estimated CRCL calculation 61 ml/min; Estimated Glomerular Filt Rate > 60; Glucose 191 mg/dL (65-110); Potassium 4.3 mmol/L (3.4-5.0); Sodium 136 mmol/L (137-145)
--- NOTE | 2022-04-21 08:52 | WPDMODSED ---
Moderate Sedation Note-Pt Data Patient Data Diagnosis: Left ventricular systolic dysfunction abnormal nuclear stress test Present Complaint: exertional dyspnea /fatigue following Coronavirus Procedure to be performed/Plan: left heart catheterization Allergies Allergy/AdvReac Type Severity Reaction Status Date / Time Adhesive Tape Allergy Mild Itching Uncoded 04/21/22 07:56 Home Medications Medication Instructions Recorded Confirmed Type aspirin 81 mg tablet,delayed 81 mg PO DAILY 09/12/19 04/20/22 History release ismjaujp-ayc-qqgb-FA-Ca carb-vit K 1 tablet PO DAILY 09/12/19 04/20/22 History 18 mg iron-400 mcg-500 mg tablet (One-A-Day Womens Formula) albuterol sulfate 90 mcg/actuation 2 puff inhalation QID PRN 10/20/21 04/20/22 Rx aerosol inhaler shortness of breath or wheezing #8.5 grams fluticasone propionate 50 1 spray intranasal DAILY #16 grams 10/20/21 04/20/22 Rx mcg/actuation nasal spray,suspension (Flonase Allergy Relief) levothyroxine 125 mcg tablet 125 mcg PO DAILY #90 tabs 10/20/21 04/20/22 Rx sertraline 100 mg tablet 100 mg PO DAILY #90 tabs 10/20/21 04/20/22 Rx sitagliptin 100 mg tablet (Januvia) 100 mg PO DAILY #90 tabs 11/03/21 04/20/22 Rx carvedilol 6.25 mg tablet 6.25 mg PO BID #180 tabs 12/01/21 04/20/22 Rx sacubitril 49 mg-valsartan 51 mg 1 tablet PO BID #60 tabs 12/01/21 04/20/22 Rx tablet (Entresto) atorvastatin 80 mg tablet 80 mg PO DAILY #90 tabs 04/06/22 04/20/22 Rx dapagliflozin 10 mg tablet 10 mg PO DAILY #100 tabs 04/12/22 04/20/22 Rx (Farxiga) Current Medications: Active Medications Sodium Chloride (Normal Saline Iv) 500 mls @ 100 mls/hr IV CONT .Q5H CRISTY Sedation/Anesthesia: No previous sedation/anesthesia problems (including family history). [facility] Past Medical History Medical History BMI 34.0-34.9,adult Breast cancer Cardiomegaly Chronic back pain Chronic, continuous use of opioids Cough Deep postoperative wound infection Degenerative lumbar disc Diabetes Diabetes type 2, controlled Diabetes type 2, uncontrolled Generalized anxiety disorder Hyperlipidemia Hypertension Hypothyroidism Iron deficiency Psoriasis RBC microcytosis Surgical History Surgical History H/O total mastectomy of right breast History of back surgery 3 back surgery History of incision and drainage (~06/21/21) Rt Humerus History of right mastectomy S/P ORIF (open reduction internal fixation) fracture (~06/03/21) Plate to right humerus status post right proximal humerus neck fracture Family History Family History Mother Lung cancer Sibling Bone cancer Father Natural with unknown cause Social History Social History Social History: Patient lives with her who has had multiple strokes. She takes care of her . She has 3 children. 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 The patient stated that she used to smoke 30 years ago. Her son Xander Melo is her durable power software development engineer for healthcare. The patient is a full code. The patient denies any alcohol marijuana or illicit drugs. Smoking packs per day: 1 Smoking cigarettes per day: 20.0 Years smoked: 10 Smoking pack-years: 10.00 Smoking status: Former smoker Tobacco type: cigarettes Alcohol intake: never Drinks per week: 1 Substance use: never Substance use type: does not use Other substance usage details: CBD GUMMIES EVERY DAY Last use: 25 years ago Living arrangements: alone Spiritual care concerns: No Mod Sed Physical Exam Physical Exam Pre Procedural Exam: Normal: Appearance ( pleasant overweight lady no apparent distress), Throat, Airway, Lungs, Heart Size, Heart Rate, Heart Rhythm, Neuro Exam and Extremities H
--- NOTE | 2022-04-21 09:25 | P.PCNCC_ITS ---
Cardiac Cath Procedure Note Date of procedure:: 04/21/22 Performing physician:: Juan José Figueroa MD Indication:: left ventricular dysfunction abnormal stress test Brief clinical history:: this is a 76-year-old woman without previous history of coronary disease. She describes having had a normal coronary angiogram about a decade ago. Recently she had coronavirus and since then has been feeling more dyspneic than usual. Noninvasive data suggest the development of LV systolic dysfunction and coronary artery disease. Procedure Procedure performed:: Left ventriculogram coronary angiogram Angio-Seal to right femoral artery Sedation/Medication given:: fentanyl 25 mg Versed 1 mg case start time 9:06 a.m. case end time 9:21 a.m. Access site:: right femoral artery Estimated blood loss:: 20 cc Procedure note:: patient was brought to the cardiac catheterization lab in the postabsorptive state where the right femoral triangle was prepared and draped in the normal fashion. Anesthesia was given% lidocaine infiltrated locally. Using the modified Seldinger technique a 5 Australian sheath was placed into the right common femoral artery after this left heart catheterization was carried out. I used a 5 Australian angled pigtail catheter to document left-sided hemodynamics and to inject LV g in MORFIN projection. Following this standard 5 Australian FL4 catheter was used to engage and inject the left coronary artery. After this a 5 Australian JR4 catheter was used to engage inject right coronary artery. The cineangiograms were then reviewed and the case was terminated. an angiogram was done of the femoral artery through the sheath after which a 6 Australian Angio- Seal device was deployed good hemostatic result. Procedure was well tolerated there were no apparent complications and she left the laborer rags with no evidence of a groin hematoma. Findings:: Hemodynamics: Central aortic pressure is 138 over 72 left ventricle 138 over 70 end-diastolic pressure 16 there is no gradient on pullback across the aortic valve. Left ventricle: The LV is moderately dilated there is moderate global systolic hypocontractility in all segments. The ejection fraction I would visually estimate to be 35%. Left main coronary artery is nicely patent the left anterior descending is a moderate caliber artery extending down to the apex. The LAD and its branches are tortuous but otherwise angiographically normal. Circumflex is a moderate caliber vessel giving rise to the marginal branches. The circumflex and the branches are smooth and angiographically normal. The right coronary artery is large LV branch dominant to the posterior circulation giving rise to a large RPDA and 3 RPL branches. The right coronary system is smooth and angiographically normal. Conclusion:: 1. Right coronary dominant circulation with no angiographic abnormalities 2. left ventricular enlargement with global hypokinesia as described above 3. false-positive nuclear stress test as there is no evidence of coronary disease Juan José Figueroa MD [facility]
[2022-04-21 09:38] LABS: Prothrombin Time 12.8 Seconds (11.1-14.7)
== END 2022-04-21 13:10 | disposition home or self-care (01) ==
PROVIDERS: PCP Family Medicine; Visit Provider Specialist
PROC: 4A023N7 Measurement of Cardiac Sampling and Pressure, Left Heart, Percutaneous Approach (ICD-10-PCS; CPT 93452; principal; 2022-04-21 09:00)
DX: R94.39 Abnormal result of other cardiovascular function study (principal); R07.89 Other chest pain; I11.9 Hypertensive heart disease without heart failure; Z86.16 Personal history of COVID-19; E11.9 Type 2 diabetes mellitus without complications; E78.5 Hyperlipidemia, unspecified; F41.9 Anxiety disorder, unspecified; R06.02 Shortness of breath; R53.83 Other fatigue; R06.00 Dyspnea, unspecified; R06.83 Snoring; G47.00 Insomnia, unspecified; I44.0 Atrioventricular block, first degree; Z85.3 Personal history of malignant neoplasm of breast; M47.816 Spondylosis without myelopathy or radiculopathy, lumbar region; F41.1 Generalized anxiety disorder; E61.1 Iron deficiency; L40.9 Psoriasis, unspecified; Z87.891 Personal history of nicotine dependence; F12.90 Cannabis use, unspecified, uncomplicated; E03.9 Hypothyroidism, unspecified; Z79.82 Long term (current) use of aspirin; Z79.51 Long term (current) use of inhaled steroids
CPT/HCPCS: 36415; 80048; 85025; 85610; 93458; C1760; C1887; G0269; J1644; J2250; J3010; J7040

== ENCOUNTER 2022-08-21 15:23 | Outpatient (CLI) | payer MEDICARE, SELFPAY ==
[2022-08-21 16:26] LABS: Hematocrit 44.7 % (37.0-47.0); Mean Corpuscular HGB Conc 31.3 g/dl (32-36); Mean Corpuscular Volume 86.3 fl (80-100); Mean Platelet Volume 10.2 fl (7.4-10.4); Platelet Count Result 212 k/mm3 (150-375); Red Blood Count 5.18 M/mm3 (4.2-5.4); Red Cell Distribution Width 13.9 % (11.5-14.5); White Blood Count 5.9 K/mm3 (4.5-10.0)
[2022-08-21 16:39] LABS: Anion Gap 10 mmol/L (8-16); Blood Urea Nitrogen 17 mg/dL (7-17); Calcium 9.4 mg/dL (8.4-10.2); Carbon Dioxide 26 mmol/L (22-30); Chloride 103 mmol/L (98-107); Estimated Glomerular Filt Rate > 60; Glucose 144 mg/dL (65-110); Potassium 3.9 mmol/L (3.4-5.0); Sodium 139 mmol/L (137-145)
[2022-08-21 17:00] LABS: Cholesterol 212 mg/dL (0-200); HDL Direct 54 mg/dL; Triglycerides 140 mg/dL (<150)
[2022-08-21 17:10] LABS: LDL Cholesterol Direct 107 mg/dL
[2022-08-21 18:10] LABS: Iron 69 ug/dL (37-170)
[2022-08-21 18:27] LABS: Percent Iron Saturation 24 % (20-50)
[2022-08-21 18:37] LABS: Free T4 Free Thyroxine 1.42 ng/mL (0.78-2.19)
== END 2022-08-21 15:24 | disposition home or self-care (01) ==
LOC: ANHLAB 15:27
PROVIDERS: Internal Medicine Cardiovascular Disease; PCP Family Medicine; Visit Provider Family Medicine
DX: E78.2 Mixed hyperlipidemia (principal); E61.1 Iron deficiency; E03.9 Hypothyroidism, unspecified; I10 Essential (primary) hypertension
CPT/HCPCS: 36415; 80048; 80061; 82728; 83540; 83550; 84439; 84443; 85027

== ENCOUNTER → 2023-03-13 08:13 | Outpatient (CLI) | payer MEDICARE, SELFPAY ==
--- NOTE | ~2023-03-13 | US_ITS ---
Abdominal Sonogram: Real-time sonographic imaging of the abdomen was performed. Clinical History: Abdominal pain Findings: The liver appears normal with no evidence of mass lesion or bile duct dilatation. Main por marcial vein demonstrates normal direction of flow. The spleen is normal in size without evidence of foca l lesion. The gallbladder is well distended, and appears normal with no evidence of gallstone or wal l thickening. The common bile duct measures 6 mm. The visualized pancreas, aorta, and IVC are unrema rkable. The right kidney measures 9.0 cm in length and the left kidney measures 9.9 cm. There is no hydronephrosis or renal calculus. Left renal cyst measures 5.9 cm in diameter. Impression: 5.9 cm left renal cyst. No other significant findings. Reviewed, dictated and finalized at [facility]. Impression: 5.9 cm left renal cyst. No other significant findings.
== END ==
PROVIDERS: PCP Physician Assistant Medical; Visit Provider Physician Assistant Medical
DX: R10.12 Left upper quadrant pain (principal); N28.1 Cyst of kidney, acquired
CPT/HCPCS: 76700

== ENCOUNTER → 2023-03-16 11:04 | Outpatient (CLI) | payer MEDICARE, SELFPAY ==
--- NOTE | ~2023-03-16 | US_ITS ---
Renal-Bladder ultrasound Clinical History: Renal cyst Technique: Real-time sonographic imaging of the kidneys and urinary bladder was performed. Findings: The right kidney measures 9.3 cm in length and the left kidney measures 8.9 cm. There is no hydronephrosis or renal calculus identified. Renal cortical echogenicity is within normal limits. No solid renal mass lesion is identified. 1.7 cm simple right renal cyst present. 5.8 cm simple left re nal cyst present. The urinary bladder is moderately distended at the time of this exam. No intraluminal echoes are iden tified. No abnormal wall thickening is seen. Impression: Bilateral renal cysts, as detailed above. Reviewed, dictated and finalized at location M. Impression: Bilateral renal cysts, as detailed above.
== END ==
PROVIDERS: PCP Family Medicine; Visit Provider Physician Assistant Medical
DX: N28.1 Cyst of kidney, acquired (principal)
CPT/HCPCS: 76775

== ENCOUNTER 2023-07-27 09:15 | Outpatient (RCR) | payer MEDICARE, SELFPAY ==
--- NOTE | 2023-07-03 15:21 | OPREHPOC ---
Outpatient Therapy Plan of Care This is a Multidisciplinary Plan of Care that may contain components documented by all disciplines (PT, OT, and ST.) PT Problem 1 PT Problem #1 Knowledge Deficit PT Goal 1 Goal 1* indep with HEP PT Problem 2 PT Problem #2 Impaired Functional Mobility PT Goal 1 Goal improve balance and mobility, evident by: 1* Tinetti balance score of 28/28 2* 5 reps sit/stand time of 15 seconds 3* pt report NO falls 4* 2 minute walking test distance of 275' with assistive device PT Problem 3 PT Problem #3 Impaired Strength PT Goal 1 Goal increase strength of trunk and legs, to improve mobility pt able to perform 20 reps with good stability and control: 1* sitting ankle circles R and L 2* side lying hip abduction R and L 3* sit/stand transfer x 10 reps without use of UEs
--- NOTE | 2023-07-03 15:21 | PTOPEVAL1 ---
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, he went to [place] about about 4 months ago because she could no longer care for him; have fallen 2x- one outside walking in grass, one foot stuck on assisted floor and fell forward; used the cane off/on for past year, but now use cane whenever walking distances; have administrative staff supervisor assist; back pain limits her walking; does not do any exercises at home; have membership to [employer] and used to do water walking--discussed with her to continue with it; GOAL: walk better; Reported Pain Level Pain Score Self Report Additional Pain Score Comments pain in back over the past week: 0-7/10; go to chiropractor for sciatic nerve pain--get back stretched; does not take any pain meds for her back; ease pain with sitting/resting; feels like always tired- cannot get enough rest/ sleep; unable to do things I want to do-- sewing, 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 She was hospitalized in March with vertigo, but reports she no longer has the dizziness, but is unsteady, off balance and has had 2 falls. She is using a cane and has back pain, s/p 3 back surgeries. Currently, she is going to a chiropractor for her back pain and it is helping her pain. With the evaluation, she did not have any reports of dizziness with the moving and testing; She does have decreased strength of her trunk and legs, decreased walking ability and balance, with back pain limiting her st
--- NOTE | 2023-07-26 13:40 | PCPTNOTE ---
pt called and canceled today's reeval appt; rescheduled the appt;
--- NOTE | 2023-07-27 09:24 | OPREHPOC ---
Outpatient Therapy Plan of Care This is a Multidisciplinary Plan of Care that may contain components documented by all disciplines (PT, OT, and ST.) PT Problem 1 PT Problem #1 Knowledge Deficit PT Goal 1 Goal 1* indep with HEP Progress Met PT Problem 2 PT Problem #2 Impaired Functional Mobil PT Goal 1 Goal improve balance and mobility, evident by: 1* Tinetti balance score of 28/28 2* 5 reps sit/stand time of 15 seconds 3* pt report NO falls 4* 2 minute walking test distance of 275' with assistive device Progress Partially Met Comment 1. increased to 24 2. met 3. met 4. met PT Problem 3 PT Problem #3 Impaired Strength PT Goal 1 Goal increase strength of trunk and legs, to improve mobility pt able to perform 20 reps with good stability and control: 1* sitting ankle circles R and L 2* side lying hip abduction R and L 3* sit/stand transfer x 10 reps without use of UE' s Progress Partially Met Comment 1. not assessed 2. improved to 10 3. not assessed
--- NOTE | 2023-07-27 09:24 | PTOPDC ---
Assessment and note entered by Krystal Kaur DPT Evaluation Information Assessment Status Discharge Diagnosis vestibular rehab ,dizziness Onset March 2023 Subjective Information Pt reports she notices after therapy she can walk a little better but then the next day it is back to the same. No falls. Does not use the cane all the time. Highest back pain in last week 05/03. Feels confident with discharge to [facility] this visit. Reported Pain Level Pain Score 5: Self Report Assessment PT Clinical Summary The patient has made some progress in therapy and reports no recent falls. She demonstrates improvements in all balance, gait, and strength testing which indicates decreased fall risk. Due to her progress and independence with HEP plan to discharge at this time. She has been educated to follow up with MD and/or PT as needed. Plan of Care PT Services Indicated No
== END 2023-07-27 09:44 | disposition home or self-care (01) ==
LOC: ANHPT 09:15
PROVIDERS: PCP Family Medicine; Visit Provider Physician Assistant Medical
DX: R42 Dizziness and giddiness (principal)
CPT/HCPCS: 97110; 97112; 97162; 97530

== ENCOUNTER 2024-04-08 10:37 | Outpatient (CLI) | payer MEDICARE, SELFPAY ==
--- NOTE | ~2024-04-08 | XR_ITS ---
AP view of the pelvis and AP and lateral views of the bilateral hips Clinical history: Pain Findings: No acute fracture or dislocation is seen. Osseous alignment is anatomic. There is mild dege nerative change of the left hip joint. Right hip joint intact. Lumbosacral spinal fixation hardware n oted. Soft tissues are unremarkable. Impression: Mild degenerative change of the left hip joint. Reviewed, dictated and finalized at location M. Impression: Mild degenerative change of the left hip joint.
--- NOTE | ~2024-04-08 | XR_ITS ---
Lumbosacral Spine: AP and lateral views Clinical History: Pain Findings: There is posterior fusion from L2 through the sacrum. Interbody fusion device present at L4 -L5. There is severe degenerative disc narrowing at T12-L1. No acute fracture or subluxation seen. Pr obable extensive facet joint effusion. The sacroiliac joints are normally outlined. Impression: Extensive posterior fusion from L2 through the sacrum. Degenerative spondylosis at the thoracal lumbar junction, as above. Reviewed, dictated and finalized at location M. Impression: Extensive posterior fusion from L2 through the sacrum. Degenerative spondylosis at the thoracal lumbar junction, as above.
== END 2024-04-08 10:38 | disposition home or self-care (01) ==
PROVIDERS: PCP Family Medicine; Visit Provider Physician Assistant Medical
DX: M16.12 Unilateral primary osteoarthritis, left hip (principal); M47.896 Other spondylosis, lumbar region; M47.897 Other spondylosis, lumbosacral region
CPT/HCPCS: 72100; 73521

== ENCOUNTER 2024-06-19 11:45 | Outpatient (RCR) | payer MEDICARE, SELFPAY ==
--- NOTE | 2024-05-01 08:56 | PTOPEVAL1 ---
Assessment and note entered by Juan José Costa Evaluation Information Assessment Status Evaluation ICD-10 Condition Codes (PT) Pain in low back M54.50,Pain in right hip M25.551, Pain in left hip M25.552 Onset 03/01/24 Subjective Information Pt. reports she has had years of back and hip pain . She states that in the past couple months pain has gotten into the legs. She describes pain in the lateral hips and radiates down into her knees. She reports that she has no pain with sitting and most pain is noticed with walking. She reports that she is having difficulty with sleep due to pain radiating into her legs at night. She reports she gets an average of 4-5 hours of sleep every night due to pain. She states that she is not home often, but describes very little physical activity. She reports that she has had x-ray of her low back and she was told she has a pinched nerve in her back. She reports that she can only stand for about 30 minutes due to pain, which makes caring for her home more time consuming and difficult. She reports that she uses a scooter for going long distances, such as walking her dog. She reports if she is shopping she will have to be able to hold onto a cart to complete her shopping. She reports that her goal for therapy is to reduce the pain in her legs and be able to walk for longer distance. Reported Pain Level Pain Score 5: Self Report Assessment PT Clinical Summary Pt. is a 78 year old female who enters the clinic with a medical diagnosis of low back pain and bilateral hip pain. Pt. presents with impaired gait, l.e. weakness, impaired postural awareness, impaired flexibility and pain. Continued skilled PT is indicated in order to improve these areas to allow for improved comfort with standing activities and improved standing endurance. Plan of Care Interventions Electrical Stimulation,Gait Training,Hot Pack/Cold Pack,Manual Therapy,Neuro Re-education,Patient/ Caregiver Educati,Therapeutic Activities, Therapeutic Exercise PT Services Indicated Yes Treatment Frequency and 2x/week x 10 visits Duration These treatments will address the objective and functional deficits as defined above. The patient will be advanced safely and appropriately in order for the patient to progress towards his/her prior level of function. Additional exercises will be introduced and as well as a comprehensive home exercise program upon discharge, if
--- NOTE | 2024-05-01 08:57 | OPREHPOC ---
Outpatient Therapy Plan of Care This is a Multidisciplinary Plan of Care that may contain components documented by all disciplines (PT, OT, and ST.) PT Problem 1 PT Problem #1 Knowledge Deficit PT Goal 1 Goal Pt. will be independent with a HEP addressing trunk mobility and core strength. Target Visit 2 PT Problem 2 PT Problem #2 Impaired Strength PT Goal 1 Goal Pt. will present with left hip abductor strength at 4/5 to improve gait mechanics and stability with standing Target Visit 5 PT Problem 3 PT Problem #3 Impaired Functional Mobil PT Goal 1 Goal Pt. will provide reports of being able to stand for 1 hour to complete household duties and community activities. Pt. will present with less than 25% limitation on LEFS indicating significant overall improvement in function. Target Visit 10 PT Problem 4 PT Problem #4 Pain PT Goal 1 Goal Pt. will complete standing activities in the clinic for duration of 30 minutes with 3/10 pain at worst. Target Visit 10
--- NOTE | 2024-06-10 10:40 | PCPTNOTE ---
Pt canceled due to illness.
--- NOTE | 2024-06-19 12:41 | PTOPEVAL1 ---
Assessment and note entered by Juan José Costa Evaluation Information Assessment Status Discharge ICD-10 Condition Codes (PT) Pain in low back M54.50,Pain in right hip M25.551, Pain in left hip M25.552 Onset 03/01/24 Subjective Information Pt. reports her pain is less intense. She still notes increased pain with prolonged standing, but can stand a little longer before having to rest. She states that she is preparing to leave on a trip next week and feels prepared to do a lot of standing. She states that she has continued exercise at home. Pt. request discharge at this time. Reported Pain Level Pain Score 3: Self Report Assessment PT Clinical Summary Mrs. Stokes attended a total of 10 treatment sessions focused on pain reduction, core strength, balance and mobility/flexibility. She presents with improved pain reports, improved l.e. strength and improved standing endurance, despite demonstrating no change with functional outcome measures. At this time pt. is encouraged to continue with her HEP and will be discharged from our care to an independent HEP. Plan of Care Interventions Electrical Stimulation,Gait Training,Hot Pack/Cold Pack,Manual Therapy,Neuro Re-education,Patient/ Caregiver Educati,Therapeutic Activities, Therapeutic Exercise PT Services Indicated No Treatment Frequency and D/C from PT to an independent HEP. Duration These treatments will address the objective and functional deficits as defined above. The patient will be advanced safely and appropriately in order for the patient to progress towards his/her prior level of function. Additional exercises will be introduced and as well as a comprehensive home exercise program upon discharge, if needed, ?to ensure carryover of functional gains achieved in the clinic. This treatment plan has been reviewed and agreement upon by the patient.
== END 2024-06-20 08:54 | disposition home or self-care (01) ==
LOC: ANHPT 11:45
PROVIDERS: PCP Family Medicine; Visit Provider Physician Assistant Medical
DX: M25.551 Pain in right hip (principal); M25.552 Pain in left hip; M54.50 Low back pain, unspecified
CPT/HCPCS: 97110; 97112; 97140; 97161; 97530

== ENCOUNTER 2024-12-17 08:32 | Outpatient (CLI) | payer MEDICARE, SELFPAY ==
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
--- OUTSIDE RECORDS SUMMARY | 2024-12-17 08:52 | XMS_ITS | Encounter Summary ---
Author Organization [facility] Address [address] [place] [address] Care Team Providers Care Hvac Commercial Salesperson Name Role Phone Smith Islas MD Primary Care Provider [phone] Encounter Details Date Type Department Care Team (Late st Contact Info) Description 02/26/2004 Outpatient [facility] Internal Medicine [address] [address] Smith Islas MD [address] [place] [address] Social History Tobacco Use Types Packs/Day Years Used Date Smoking Tobacco: Never Assessed Comments Unknown Sex and Gender Information Value Date Recorded Sex Assigned at Not on file Legal Sex Female 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
--- OUTSIDE RECORDS SUMMARY | 2024-12-17 08:52 | XMS_ITS | Encounter Summary ---
Author Organization [facility] Address [address] [place] [address] Care Team Providers Care Coater Operator Name Role Phone Smith Islas MD Primary Care Provider [phone] Encounter Details Date Type Department Care Team (Late st Contact Info) Description 08/20/2007 Outpatient [facility] Internal Medicine [address] [address] Smith Islas MD [address] [place] [phone] Social History Tobacco Use Types Packs/Day Years Used Date Smoking Tobacco: Never Assessed Comments Unknown Sex and Gender Information Value Date Recorded Sex Assigned at Not on file Legal Sex Female 3:30 AM MANAGER PHYSICAL Gender Identity Not on file Sexual Orientation Not on file documented as of this encounter Plan of Treatment Not on file documented as of this encounter Visit Diagnoses Not on filedocumented in this encounter Care Teams Coater Operator Relationship Specialty Start Date End Date Smith Islas MD [address] [place] [address] [address] [place] [address] PCP - General 10/22/03 07/11/15 documented as of this encounter
--- OUTSIDE RECORDS SUMMARY | 2024-12-17 08:52 | XMS_ITS | Encounter Summary ---
Author Organization [facility] Address [address] [place] [address] Care Team Providers Care Adon Name Role Phone Smith Islas MD Primary Care Provider [phone] Encounter Details Date Type Department Care Team (Late st Contact Info) Description 02/26/2004 Outpatient [facility] Internal Medicine [address] [address] Smith Islas MD [address] [place] [phone] Social History Tobacco Use Types Packs/Day Years Used Date Smoking Tobacco: Never Assessed Comments Unknown Sex and Gender Information Value Date Recorded Sex Assigned at Not on file Legal Sex Female 3:30 AM BONE CRUSHER Gender Identity Not on file Sexual Orientation Not on file documented as of this encounter Plan of Treatment Not on file documented as of this encounter Visit Diagnoses Not on filedocumented in this encounter Care Teams Adon Relationship Specialty Start Date End Date Smith Islas MD [address] [place] [address] [address] [place] [address] PCP - General 10/22/03 07/11/15 documented as of this encounter
--- OUTSIDE RECORDS SUMMARY | 2024-12-17 08:52 | XMS_ITS | Encounter Summary ---
Author Organization [facility] Address [address] [place] [address] Care Team Providers Care Driver Retraining Instructor Name Role Phone Smith Islas MD Primary Care Provider [phone] Encounter Details Date Type Department Care Team (Late st Contact Info) Description 08/07/2007 Outpatient [facility] Internal Medicine [address] [address] Smith Islas MD [address] [place] [phone] Social History Tobacco Use Types Packs/Day Years Used Date Smoking Tobacco: Never Assessed Comments Unknown Sex and Gender Information Value Date Recorded Sex Assigned at Not on file Legal Sex Female 3:30 AM TELETYPEWRITER 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
--- OUTSIDE RECORDS SUMMARY | 2024-12-17 08:52 | XMS_ITS | Encounter Summary ---
Author Organization [facility] Address [address] [place] [address] Care Team Providers Care Motel Front Desk Clerk Name Role Phone Smith Islas MD Primary Care Provider [phone] Encounter Details Date Type Department Care Team (Latest Contact Info) Description 01/20/2004 Outpatient Historical [facility] Davonte Bermudez MD [address] [facility] [address] [place] [address] ARTHRODESIS STATUS (Primary Dx) Social History Tobacco Use Types Packs/Day Years Used Date Smoking Tobacco: Never Assessed Comments Unknown Sex and Gender Information Value Date Recorded Sex Assigned at Not on file Legal Sex Female 3:30 AM SDC TEACHER Gender Identity Not on file Sexual Orientation Not on file documented as of this encounter Plan of Treatment Not on file documented as of this encounter Visit Diagnoses Diagnosis Arthrodesis status- Primary documented in this encounter Care Teams Motel Front Desk Clerk Relationship Specialty Start Date End Date Smith Islas MD [address] [place] [address] [address] [place] [phone] PCP - General 10/22/03 07/11/15 documented as of this encounter
--- OUTSIDE RECORDS SUMMARY | 2024-12-17 08:52 | XMS_ITS | Encounter Summary ---
Author Organization [facility] Address [address] [place] [address] Care Team Providers Care Medical Health Researcher Name Role Phone Smith Islas MD Primary Care Provider [phone] Encounter Details Date Type Department Care Team (Late st Contact Info) Description 01/15/2004 Outpatient [facility] Internal Medicine [address] [address] Smith Islas MD [address] [place] [phone] Social History Tobacco Use Types Packs/Day Years Used Date Smoking Tobacco: Never Assessed Comments Unknown Sex and Gender Information Value Date Recorded Sex Assigned at Not on file Legal Sex Female 3:30 AM GENERAL ADMINISTRATOR Gender Identity Not on file Sexual Orientation Not on file documented as of this encounter Plan of Treatment Not on file documented as of this encounter Visit Diagnoses Not on filedocumented in this encounter Care Teams Medical Health Researcher Relationship Specialty Start Date End Date Smith Islas MD [address] [place] [address] [address] [place] [address] PCP - General 10/22/03 07/11/15 documented as of this encounter
--- OUTSIDE RECORDS SUMMARY | 2024-12-17 08:53 | XMS_ITS | Encounter Summary ---
Author Organization [facility] Address [address] [place] [address] Care Team Providers Care Vamp Creaser Name Role Phone Smith Islas MD Primary Care Provider [phone] Encounter Details Date Type Department Care Team (Late st Contact Info) Description 12/21/2004 Outpatient Historical [facility] Internal Medicine [address] [address] Smith Islas MD [address] [place] [phone] Social History Tobacco Use Types Packs/Day Years Used Date Smoking Tobacco: Never Assessed Comments Unknown Sex and Gender Information Value Date Recorded Sex Assigned at Not on file Legal Sex Female 3:30 AM DIRECTOR SOCIAL SERVICE Gender Identity Not on file Sexual Orientation Not on file documented as of this encounter Last Filed Vital Signs Vital Sign Reading Time Taken Comments Blood Pressure 130/70 12/21/2004 10:30 AM DIRECTOR SOCIAL SERVICE Pulse - - Temperature - - Respiratory Rate - - Oxygen Saturation - - Inhaled Oxygen Concentration - - Weight 95.3 kg (210 lb) 12/21/2004 10:30 AM DIRECTOR SOCIAL SERVICE Height - - Body Mass Index 34.95 10/14/2003 10:30 AM DIRECTOR SOCIAL SERVICE documented in this encounter Plan of Treatment Not on file documented as of this encounter Visit Diagnoses Not on filedocumented in this encounter Care Teams Vamp Creaser Relationship Specialty Start Date End Date Smith Islas MD [address] [place] [phone] PCP - General 10/22/03 07/11/15 documented as of this encounter
--- OUTSIDE RECORDS SUMMARY | 2024-12-17 08:53 | XMS_ITS | Encounter Summary ---
Author Organization [facility] Address [address] [place] [address] Care Team Providers Care Photovoltaic Panel Installer Name Role Phone Smith Islas MD Primary Care Provider [phone] Encounter Details Date Type Department Care Team (Late st Contact Info) Description 06/27/2005 Outpatient Historical [facility] Internal Medicine [address] [address] Smith Islas MD [address] [place] [address] Social History Tobacco Use Types Packs/Day Years Used Date Smoking Tobacco: Never Assessed Comments Unknown Sex and Gender Information Value Date Recorded Sex Assigned at Not on file Legal Sex Female 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 Gender Identity Not on file Sexual Orientation Not on file documented as of this encounter Last Filed Vital Signs Vital Sign Reading Time Taken Comments Blood Pressure 130/80 06/27/2005 11:15 AM CDT Pulse - - Temperature 36.1 C (97 F) 06/27/2005 11:15 AM CDT Respiratory Rate - - Oxygen Saturation - - Inhaled Oxygen Concentration - - Weight 99.8 kg (220 lb) 06/27/2005 11:15 AM CDT Height - - Body Mass Index 36.61 10/14/2003 10:30 AM PAVING CREW FOREMAN documented in this encounter Plan of Treatment Not on file documented as of this encounter Visit Diagnoses Not on filedocumented in this encounter Care Teams Photovoltaic Panel Installer Relationship Specialty Start Date End Date Smith Islas MD [address] [place] [phone] PCP - General 10/22/03 07/11/15 documented as of this encounter
--- OUTSIDE RECORDS SUMMARY | 2024-12-17 08:53 | XMS_ITS | Encounter Summary ---
Author Organization [facility] Address [address] [place] [address] Care Team Providers Care Wall Cleaner Name Role Phone Smith Islas MD Primary Care Provider [phone] Encounter Details Date Type Department Care Team (Late st Contact Info) Description 12/23/2003 Outpatient Historical [facility] Internal Medicine [address] [address] Smith Islas MD [address] [place] [phone] Social History Tobacco Use Types Packs/Day Years Used Date Smoking Tobacco: Never Assessed Comments Unknown Sex and Gender Information Value Date Recorded Sex Assigned at Not on file Legal Sex Female 3:30 AM HEAT CURER Gender Identity Not on file Sexual Orientation Not on file documented as of this encounter Last Filed Vital Signs Vital Sign Reading Time Taken Comments Blood Pressure 162/90 12/23/2003 11:00 AM HEAT CURER Pulse - - Temperature 36.3 C (97.3 F) 12/23/2003 11:00 AM HEAT CURER Respiratory Rate - - Oxygen Saturation - - Inhaled Oxygen Concentration - - Weight 96.2 kg (212 lb) 12/23/2003 11:00 AM HEAT CURER Height - - Body Mass Index 35.28 10/14/2003 10:30 AM HEAT CURER documented in this encounter Plan of Treatment Not on file documented as of this encounter Visit Diagnoses Not on filedocumented in this encounter Care Teams Wall Cleaner Relationship Specialty Start Date End Date Smith Islas MD [address] [place] [phone] PCP - General 10/22/03 07/11/15 documented as of this encounter
--- OUTSIDE RECORDS SUMMARY | 2024-12-17 08:53 | XMS_ITS | Encounter Summary ---
Author Organization [facility] Address 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
--- OUTSIDE RECORDS SUMMARY | 2024-12-17 08:53 | XMS_ITS | Encounter Summary ---
Author Organization [email or web address] Address [address] [place] [address] Care Team Providers Care Marketing Strategy Analyst Name Role Phone Smith Islas MD Primary Care Provider [phone] Encounter Details Date Type Department Care Team (Late st Contact Info) Description 10/27/2008 Outpatient Historical [facility] [place], Authorized P NO ADDRESS ON FILE Antione Orta MD [address] [place] [address] Abdominal Pain, Unspecified Site; Other Acute Pain; Gastritis/Duodenitis ; Unspecified Essential Hypertension; DM w/o Complication Type II (CMS/HCC); Pure Hypercholesterolemia ; Osteoarth NOS-Unspec; Encounter for Long-Term (Current) Use of Other Medications Social History Tobacco Use Types Packs/Day Years Used Date Smoking Tobacco: Former Cigarettes Q uit: 06/26/1988 Alcohol Use Standard Drinks/Week Comments No 0 (1 standard drink = 0.6 oz pur e alcohol) Comments No Sex and Gender Information Value Date Recorded Sex Assigned at Not on file Legal Sex Female 3:30 AM HIDE HOUSE SUPERVISOR Gender Identity Not on file Sexual Orientation Not on file documented as of this encounter Plan of Treatment Not on file documented as of this encounter Procedures Procedure Name Priority Date/Time Associated Diagnosis Comments LIPASE Stat 10/27/2008 7:19 AM HIDE HOUSE SUPERVISOR AMYLASE Stat 10/27/2008 7:19 AM HIDE HOUSE SUPERVISOR CBC WITH DIFFERENTIAL Stat 10/27/2008 6:21 AM HIDE HOUSE SUPERVISOR COMPREHENSIVE METABOLIC PANEL Stat 10/27/2008 5:35 AM HIDE HOUSE SUPERVISOR POC URINALYSIS DIPSTICK NON AUTOMATED Routine 10/27/2008 5:25 AM HIDE HOUSE SUPERVISOR documented in this encounter Results * AMYLASE (10/27/2008 7:19 AM HIDE HOUSE SUPERVISOR) [facility] AMYLASE 30 28 - 100 U/L [facility] Blood specimen (specimen) 10/27/2008 7:19 AM HIDE HOUSE SUPERVISOR 10/27/2008 7:19 AM HIDE HOUSE SUPERVISOR us Antione Orta MD CHEMISTRY ORDERABLES Final Resul t Performing Organization Address [facility] de Phone Number INTERFACE SYSTEM Refer to clinic/hospital department [facility] CLIA# [id number] [address] [place] [address] * LIPASE (10/27/2008 7:19 AM HIDE HOUSE SUPERVISOR) [facility] LIPASE 33 13 - 60 U/L [facility] Blood specimen (specimen) 10/27/2008 7:19 AM HIDE HOUSE SUPERVISOR 10/27/2008 7:19 AM HIDE HOUSE SUPERVISOR Narrative INTERFACE SYSTEM - 10/27/2008 7:32 AM HIDE HOUSE SUPERVISOR blood in lab [facility] us Antione Orta MD CHEMISTRY ORDERABLES Final Resul t Performing Organization Address [facility] de Phone Number INTERFACE SYSTEM Refer to clinic/hospital department [facility] CLIA# [id number] [address] [place] [address] * (ABNORMAL) CBC WITH DIFFERENTIAL (10/27/2008 6:21 AM HIDE HOUSE SUPERVISOR) [facility] MCHC 33.2 31.5 - 35.5 % [facility] MCV 81.5(L) 82.0 - 99.0 fL [facility] PLATELETS 206 140 - 350 K/uL [facility] HEMOGLOBIN 14.8 11.8 - 14.8 g/dL [facility] RDW 13.9 11.5 - 14.5 % [facility] WBC 7.3 4.0 - 9.8 K/uL [facility] MCH 27.1(L) 27.2 - 32.6 pg [facility] MPV 10.7 9.3 - 12.4 fL [facility] HEMATOCRIT 44.6(H) 35.5 - 44.0 % [facility] RDW-STDEV 41.2 37.1 - 48.7 fL [facility] RBC 5.47(H) 3.90 - 4.90 M/uL [facility] LYMPHOCYTES 19 16 - 45 % [facility] LYMPHOCYTE ABSOLUTE 1.42 0.70 - 4.50 K/uL [facility] BASOPHILS 1 0 - 2 % [facility] BASOPHILS ABSOLUTE 0.07 0.00 - 0.20 K/uL [facility] MONOCYTES 9 3 - 13 % [facility] MONOCYTE ABSOLUTE 0.65 0.10 - 1.30 K/uL [facility] NEUTROPHILS 69 45 - 70 % [facility] NEUTROPHIL ABSOLUTE 5.08 1.90 - 7.00 K/uL [facility] EOSINOPHILS 2 0 - 7 % [facility] EOSINOPHIL ABSOLUTE 0.12 0.00 - 0.70 K/uL [facility] Blood specimen (specimen) 10/27/2008 6:21 AM HIDE HOUSE SUPERVISOR 10/27/2008 6:21 AM HIDE HOUSE SUPERVISOR Narrative INTERFACE SYSTEM - 10/27/2008 7:03 AM HIDE HOUSE SUPERVISOR redraw of [phone] us Authorized P Er HEMATOLOGY ORDERABLES Edited INTERFACE SYSTEM Refer to clinic/hospital department [facility] CLIA# [id number] [address] [place] [address] * (ABNORMAL) COMPREHENSIVE METABOLIC PANEL (10/27/2008 5:35 AM HIDE HOUSE SUPERVISOR) BILIRUBIN TOTAL 0.5 0.2 - 1.0 mg/dL [facility] CHLORIDE 104 96 - 108 mmol/L [facility] TOTAL PROTEIN 7.7 6.3 - 8.6 g/dL [facility] GLUCOSE 140(H) 65 - 99 mg/dL [facility] AST 34(H) 12 - 32 U/L [facility] Comment: Hemolyzed: Result may be falsely elevated. BUN 20 6 - 20 mg/dL [facility] CALCIUM 9.7 8.6 - 10.2 mg/dL [facility] ALBUMIN 4.4 3.4 - 4.8 g/dL [facility] POTASSIUM See note. 3.5 - 4.9 mmol/L [facility] Comment: Gross hemolysis present. Result unreliable. CO2 21(L) 22 - 30 mmol/L [facility] CREATININE 0.65 0.51 - 0.95 mg/dL [facility] ALT 22 0 - 31 U/L [facility] Comment: Hemolyzed: Result may be falsely elevated. SODIUM 137 135 - 145 mmol/L [facility] ALKALINE PHOSPHATASE 91 35 - 104 U/L [facility] GFR, >60 >=60 mL/min/1. 7 sq meter [facility] GFR >60 >=60 mL/min/1. 7 sq meter [facility] Comment: Modification of Diet in Renal Disease (MDRD) study formula. Estimated GFR rate interpretative information for both Americans and non- Americans is available on the [facility] Intranet at: [email or web address] Select: Lab Policies and Procedures Select: Reference Ranges - GFR Blood specimen (specimen) 10/27/2008 5:35 AM HIDE HOUSE SUPERVISOR 10/27/2008 5:45 AM HIDE HOUSE SUPERVISOR us Antione Orta MD CHEMISTRY ORDERABLES Edited Performing Organization Address [facility] Phone Number INTERFACE SYSTEM Refer to clinic/hospital department [facility] CLIA# [id number] [address] [place] [address] * POC URINALYSIS DIPSTICK NON AUTOMATED (10/27/2008 5:25 AM HIDE HOUSE SUPERVISOR) BILIRUBIN UA Negative Negative [facility] PH UA 6.0 5.0 - 8.0 [facility] KETONES UA Negative Negative [facility] CLARITY UA Clear [facility] BLOOD UA Negative Negative [facility] PROTEIN UA Negative Negative [facility] LEUKOCYTE ESTERASE UA Negative Negative [facility] UROBILINOGEN UA 1+ (1 mg/dL) <=1 mg/dL [facility] SPECIFIC GRAVITY UA 1.030 1.001 - 1.030 [facility] GLUCOSE UA Negative Negative [facility] COLOR UA Yellow [facility] NITRITE UA Negative Negative [facility] Urine specimen (specimen) 10/27/2008 5:25 AM HIDE HOUSE SUPERVISOR 10/27/2008 5:25 AM HIDE HOUSE SUPERVISOR us Authorized P Er POINT OF CARE TESTING Final Resu lt Performing Organization Address [facility] de Phone Number INTERFACE SYSTEM Refer to clinic/hospital department [facility] CLIA# [id number] [address] [place] [address] documented in this encounter Visit Diagnoses Diagnosis Abdominal pain, unspecified site Other acute pain Unspecified gastritis and gastroduodenitis without mention of hemorrhage Unspecified essential hypertension Type II or unspecified type diabetes mellitus without mention of complication, not stated as uncontrolled (CMS/HCC) Type II or unspecified type diabetes mellitus without mention of complication, not stated as uncontrolled Pure hypercholesterolemia Osteoarthrosis, unspecified whether generalized or localized, unspecified site Encounter for long-term (current) use of other medications documented in this encounter Care Teams Marketing Strategy Analyst Relationship Specialty Start Date End Date Smith Islas MD [address] [place] [phone] PCP - General 10/22/03 07/11/15 documented as of this encounter
--- OUTSIDE RECORDS SUMMARY | 2024-12-17 08:53 | XMS_ITS | Encounter Summary ---
Author Organization [facility] Address [address] [place] [address] Care Team Providers Care Eeg Tech Name Role Phone Smith Islas MD Primary Care Provider [phone] Encounter Details Date Type Department Care Team (Late st Contact Info) Description 11/03/2005 Outpatient [facility] Internal Medicine [address] [address] Smith Islas MD [address] [place] [phone] Social History Tobacco Use Types Packs/Day Years Used Date Smoking Tobacco: Never Assessed Comments Unknown Sex and Gender Information Value Date Recorded Sex Assigned at Not on file Legal Sex Female 3:30 AM CVICU RN Gender Identity Not on file Sexual Orientation Not on file documented as of this encounter Plan of Treatment Not on file documented as of this encounter Visit Diagnoses Not on filedocumented in this encounter Care Teams Eeg Tech Relationship Specialty Start Date End Date Smith Islas MD [address] [place] [address] [address] [place] [address] PCP - General 10/22/03 07/11/15 documented as of this encounter
--- OUTSIDE RECORDS SUMMARY | 2024-12-17 08:53 | XMS_ITS | Encounter Summary ---
Author Organization [facility] Address [address] [place] [address] Care Team Providers Care Medical Office Supervisor Name Role Phone Smith Islas MD Primary Care Provider [phone] Encounter Details Date Type Department Care Team (Late st Contact Info) Description 08/04/2004 Outpatient [facility] Internal Medicine [address] [address] Smith Islas MD [address] [place] [phone] Social History Tobacco Use Types Packs/Day Years Used Date Smoking Tobacco: Never Assessed Comments Unknown Sex and Gender Information Value Date Recorded Sex Assigned at Not on file Legal Sex Female 3:30 AM DENTAL EQUIPMENT TECHNICIAN Gender Identity Not on file Sexual Orientation Not on file documented as of this encounter Plan of Treatment Not on file documented as of this encounter Visit Diagnoses Not on filedocumented in this encounter Care Teams Medical Office Supervisor Relationship Specialty Start Date End Date Smith Islas MD [address] [place] [address] [address] [place] [address] PCP - General 10/22/03 07/11/15 documented as of this encounter
--- OUTSIDE RECORDS SUMMARY | 2024-12-17 08:53 | XMS_ITS | Patient Health Record ---
Author Organization [facility] Address [address] [facility] [facility] [address] [place] [address] Care Team Providers Care Multi Craft Maintenance Technician Name Role Phone Miranda Melendez Unavailable [phone] Reason For Referral No Information Medications Medication SIG (Take, Route, Frequency, Duration) Notes Start Date End Date Status Gabapentin 300 MG take 1 capsule (300 mg) by oral route 3 times per day Oral 3 03/31/2020 Active Atorvastatin Calcium 80 MG take 1 tablet (80 mg) by oral route once daily Oral 1 Active Levothyroxine Sodium 100 MCG Oral Active Nabumetone 500 MG take 2 tablets (1,00 0 mg) by oral route 2 times per day Oral 2 03/31/2020 Active Losartan Potassium 50 MG Oral Active Humira 40 MG/0.8ML inject 0.8 millilite r (40 mg) by subcutaneous route every 2 weeks in the abdomen or thigh (rotate sites) Subcutaneous [id number] Active Sertraline HCl 100 MG Oral Active Carvedilol 25 MG Oral Act barbara Problems Problem Type SNOMED Code ICD Code Onset Dates Problem Status W/U Status Risk Notes Problem Joint pain (32675325) Pain in unspecified joint (M25.50) Active confirmed Problem Joint disorder (662751408) Joint disorder, unspecified (M25.9) Active confirmed pain Problem Backache (551228614) Dorsalgia, unspecified (M54.9) Active confirmed Plan Of Treatment No Information Insurance Providers Payer Name Payer Address Payer Phone Subscriber Number Group Number Insured Name Patient Relationship to Insured Coverage Start Date Coverage End Date DO NOT USE - use ins id # [id number] Wendy Stokes Self - patient is the insured [facility] [address] [place] [address] [id number] Stokes, Wendy Self - patient is the insured Medical (General) History Surgical History Surgery Date(Month/Year) mastectomy; 2018 Back surgery; 2018
--- OUTSIDE RECORDS SUMMARY | 2024-12-17 08:53 | XMS_ITS | Encounter Summary ---
Author Organization [employer] Address [address] [place] [address] Care Team Providers Care Builder'S Labourer Name Role Phone Smith Islas MD Primary Care Provider [phone] Encounter Details Date Type Department Care Team (Latest Contact Info) Description 12/09/2003 Outpatient Historical [facility] Davonte Bermudez MD [address] [facility] [address] [place] [address] ARTHRODESIS STATUS (Primary Dx) Social History Tobacco Use Types Packs/Day Years Used Date Smoking Tobacco: Never Assessed Comments Unknown Sex and Gender Information Value Date Recorded Sex Assigned at Not on file Legal Sex Female 3:30 AM INSPECTOR AND TESTER Gender Identity Not on file Sexual Orientation Not on file documented as of this encounter Plan of Treatment Not on file documented as of this encounter Visit Diagnoses Diagnosis Arthrodesis status- Primary documented in this encounter Care Teams Builder'S Labourer Relationship Specialty Start Date End Date Smith Islas MD [address] [place] [address] [address] [place] [phone] PCP - General 10/22/03 07/11/15 documented as of this encounter
--- OUTSIDE RECORDS SUMMARY | 2024-12-17 08:53 | XMS_ITS | Encounter Summary ---
Author Organization [facility] Address [address] [place] [address] Care Team Providers Care Rn Child Name Role Phone Smith Islas MD Primary Care Provider [phone] Encounter Details Date Type Department Care Team (Late st Contact Info) Description 03/24/2005 Outpatient Historical [facility] Internal Medicine [address] [address] Smith Islas MD [address] [place] [phone] Social History Tobacco Use Types Packs/Day Years Used Date Smoking Tobacco: Never Assessed Comments Unknown Sex and Gender Information Value Date Recorded Sex Assigned at Not on file Legal Sex Female 3:30 AM FISH LIVER SORTER Gender Identity Not on file Sexual Orientation Not on file documented as of this encounter Last Filed Vital Signs Vital Sign Reading Time Taken Comments Blood Pressure 130/80 03/24/2005 9:45 AM CDT Pulse - - Temperature 36.7 C (98 F) 03/24/2005 9:45 AM CDT Respiratory Rate - - Oxygen Saturation - - Inhaled Oxygen Concentration - - Weight 98.9 kg (218 lb) 03/24/2005 9:45 AM CDT Height - - Body Mass Index 36.28 10/14/2003 10:30 AM FISH LIVER SORTER documented in this encounter Plan of Treatment Not on file documented as of this encounter Visit Diagnoses Not on filedocumented in this encounter Care Teams Rn Child Relationship Specialty Start Date End Date Smith Islas MD [address] [place] [phone] PCP - General 10/22/03 07/11/15 documented as of this encounter
--- OUTSIDE RECORDS SUMMARY | 2024-12-17 08:53 | XMS_ITS | Encounter Summary ---
Author Organization [facility] Address [address] [place] [address] Care Team Providers Care Math And Physics Instructor Name Role Phone Smith Islas MD Primary Care Provider [phone] Encounter Details Date Type Department Care Team (Late st Contact Info) Description 08/04/2005 Outpatient Historical [facility] Internal Medicine [address] [address] Smith Islas MD [address] [place] [phone] Social History Tobacco Use Types Packs/Day Years Used Date Smoking Tobacco: Never Assessed Comments Unknown Sex and Gender Information Value Date Recorded Sex Assigned at Not on file Legal Sex Female 3:30 AM POLITICAL THEORY PROFESSOR Gender Identity Not on file Sexual Orientation Not on file documented as of this encounter Last Filed Vital Signs Vital Sign Reading Time Taken Comments Blood Pressure 120/80 08/04/2005 9:45 AM POLITICAL THEORY PROFESSOR Pulse - - Temperature - - Respiratory Rate - - Oxygen Saturation - - Inhaled Oxygen Concentration - - Weight 102.5 kg (226 lb) 08/04/2005 9:45 AM POLITICAL THEORY PROFESSOR Height - - Body Mass Index 37.61 10/14/2003 10:30 AM POLITICAL THEORY PROFESSOR documented in this encounter Plan of Treatment Not on file documented as of this encounter Visit Diagnoses Not on filedocumented in this encounter Care Teams Math And Physics Instructor Relationship Specialty Start Date End Date Smith Islas MD [address] [place] [phone] PCP - General 10/22/03 07/11/15 documented as of this encounter
--- OUTSIDE RECORDS SUMMARY | 2024-12-17 08:53 | XMS_ITS | Encounter Summary ---
Author Organization [facility] Address [address] [place] [address] Care Team Providers Care Explosive Specialist Name Role Phone Smith Islas MD Primary Care Provider [phone] Encounter Details Date Type Department Care Team (Late st Contact Info) Description 10/24/2005 Orders Only [facility] Internal Medicine [address] [address] Smith Islas MD [address] [place] [phone] Social History Tobacco Use Types Packs/Day Years Used Date Smoking Tobacco: Never Assessed Comments Unknown Sex and Gender Information Value Date Recorded Sex Assigned at Not on file Legal Sex Female 3:30 AM WATCH GUARD GATE Gender Identity Not on file Sexual Orientation Not on file documented as of this encounter Plan of Treatment Not on file documented as of this encounter Visit Diagnoses Not on filedocumented in this encounter Care Teams Explosive Specialist Relationship Specialty Start Date End Date Smith Islas MD [address] [place] [address] [address] [place] [address] PCP - General 10/22/03 07/11/15 documented as of this encounter
--- OUTSIDE RECORDS SUMMARY | 2024-12-17 08:53 | XMS_ITS | Encounter Summary ---
Author Organization [facility] Address [address] [place] [address] Care Team Providers Care Patient Liaison Name Role Phone Smith Islas MD Primary Care Provider [phone] Encounter Details Date Type Department Care Team (Late st Contact Info) Description 09/26/2004 Outpatient Historical [facility] Internal Medicine [address] [address] Smith Islas MD [address] [place] [phone] Social History Tobacco Use Types Packs/Day Years Used Date Smoking Tobacco: Never Assessed Comments Unknown Sex and Gender Information Value Date Recorded Sex Assigned at Not on file Legal Sex Female 3:30 AM PLANT FACILITIES TECHNICIAN Gender Identity Not on file Sexual Orientation Not on file documented as of this encounter Last Filed Vital Signs Vital Sign Reading Time Taken Comments Blood Pressure 140/80 09/26/2004 4:00 PM PLANT FACILITIES TECHNICIAN Pulse - - Temperature 36.1 C (97 F) 09/26/2004 4:00 PM PLANT FACILITIES TECHNICIAN Respiratory Rate - - Oxygen Saturation - - Inhaled Oxygen Concentration - - Weight - - Height - - Body Mass Index - - documented in this encounter Plan of Treatment Not on file documented as of this encounter Visit Diagnoses Not on filedocumented in this encounter Care Teams Patient Liaison Relationship Specialty Start Date End Date Smith Islas MD [address] [place] [phone] PCP - General 10/22/03 07/11/15 documented as of this encounter
--- OUTSIDE RECORDS SUMMARY | 2024-12-17 08:53 | XMS_ITS | Encounter Summary ---
Author Organization [employer] Address [address] [place] [address] Care Team Providers Care Direct Chill Caster Name Role Phone Smith Islas MD Primary Care Provider [phone] Encounter Details Date Type Department Care Team (Latest Contact Info) Description 11/25/[address] [facility] DRAW SITE Smith Islas MD [address] [address] DM w/o Complication Type II (CMS/HCC) Social History Tobacco Use Types Packs/Day Years Used Date Smoking Tobacco: Former Cigarettes Q uit: 06/26/1988 Alcohol Use Standard Drinks/Week Comments No 0 (1 standard drink = 0.6 oz pur e alcohol) Comments No Sex and Gender Information Value Date Recorded Sex Assigned at Not on file Legal Sex Female 3:30 AM RESOURCE TEACHER Gender Identity Not on file Sexual Orientation Not on file documented as of this encounter Plan of Treatment Not on file documented as of this encounter Visit Diagnoses Diagnosis Type II or unspecified type diabetes mellitus without mention of complication, not stated as uncontrolled (CMS/HCC) Type II or unspecified type diabetes mellitus without mention of complication, not stated as uncontrolled documented in this encounter Care Teams Direct Chill Caster Relationship Specialty Start Date End Date Smith Islas MD [address] [facility] [address] [place] [address] PCP - General 10/22/03 07/11/15 documented as of this encounter
--- OUTSIDE RECORDS SUMMARY | 2024-12-17 08:53 | XMS_ITS | Encounter Summary ---
Author Organization [facility] Address [address] [place] [address] Care Team Providers Care Financial Sales Manager Name Role Phone Smith Islas MD Primary Care Provider [phone] Encounter Details Date Type Department Care Team (Late st Contact Info) Description 07/18/2005 Outpatient Historical [facility] Internal Medicine [address] [address] Smith Islas MD [address] [place] [phone] Social History Tobacco Use Types Packs/Day Years Used Date Smoking Tobacco: Never Assessed Comments Unknown Sex and Gender Information Value Date Recorded Sex Assigned at Not on file Legal Sex Female 3:30 AM POLLUTION CONTROL ENGINEER Gender Identity Not on file Sexual Orientation Not on file documented as of this encounter Last Filed Vital Signs Vital Sign Reading Time Taken Comments Blood Pressure 130/80 07/18/2005 9:30 AM CDT Pulse - - Temperature 36.6 C (97.8 F) 07/18/2005 9:30 AM CDT Respiratory Rate - - Oxygen Saturation - - Inhaled Oxygen Concentration - - Weight 100.7 kg (222 lb) 07/18/2005 9:30 AM CDT Height - - Body Mass Index 36.94 10/14/2003 10:30 AM POLLUTION CONTROL ENGINEER documented in this encounter Plan of Treatment Not on file documented as of this encounter Visit Diagnoses Not on filedocumented in this encounter Care Teams Financial Sales Manager Relationship Specialty Start Date End Date Smith Islas MD [address] [place] [phone] PCP - General 10/22/03 07/11/15 documented as of this encounter
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
--- OUTSIDE RECORDS SUMMARY | 2024-12-17 08:53 | XMS_ITS | Encounter Summary ---
Author Organization [facility] Address [address] [place] [address] Care Team Providers Care Duty Manager Name Role Phone Smith Islas MD Primary Care Provider [phone] Encounter Details Date Type Department Care Team (Latest Contact Info) Description 10/02/2007 Outpatient Historical [facility] Internal Medicine [address] [address] Smith Islas MD [address] [place] [phone] DM w/o Complication Type II (CMS/HCC) Social History Tobacco Use Types Packs/Day Years Used Date Smoking Tobacco: Never Assessed Comments Unknown Sex and Gender Information Value Date Recorded Sex Assigned at Not on file Legal Sex Female 3:30 AM CENTERLESS 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 Gender Identity Not on file Sexual Orientation Not on file documented as of this encounter Plan of Treatment Not on file documented as of this encounter Procedures Procedure Name Priority Date/Time Associated Diagnosis Comments MICROALBUMIN/CREATININ E RATIO, RANDOM UR Routine 10/02/2007 9:09 AM CENTERLESS GRINDING 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 TSH Routine 10/02/2007 9:05 AM CENTERLESS GRINDING 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 HEMOGLOBIN A1C Routine 10/02/2007 9:05 AM CENTERLESS GRINDING 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 LIPID PANEL Routine 10/02/2007 9:05 AM CENTERLESS GRINDING 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 COMPREHENSIVE METABOLIC PANEL Routine 10/02/2007 9:05 AM CENTERLESS GRINDING 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 documented in this encounter Results * MICROALBUMIN/CREATININE RATIO, RANDOM UR (10/02/2007 9:09 AM CENTERLESS GRINDING 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) MICROALBUMIN/C REAT RATIO, UR 4 0 - 29 mg/g creatinine INTERFACE SYSTEM 10/02/2007 9:09 AM CENTERLESS GRINDING 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 Smith Islas MD URINE ORDERABLES Edited Performing Organization Address [facility] de Phone Number INTERFACE SYSTEM Refer to clinic/hospital department * (ABNORMAL) LIPID PANEL (10/02/2007 9:05 AM CENTERLESS GRINDING 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) CHOLESTEROL 199 100 - 199 mg/dL INTERFACE SYSTEM TRIGLYCERIDE 109 10 - 149 mg/dL INTERFACE SYSTEM HDL 73(H) 40 - 59 mg/dL INTERFACE SYSTEM CHOL/HDL RATIO 2.7 2.0 - 5.0 INTER FACE SYSTEM LDL CALCULATED 104(H) <=99 mg/dL INTERFACE SYSTEM LIPID PANEL COMMENT See Below INTERFACE SYSTEM Comment: The adult ATP and pediatric NCEP classifications for lipids are available on the [facility] Intranet at: [email or web address] Select: Lab Policies and Procedures,Current Select: Lipid Panel Interpretation 10/02/2007 9:05 AM CENTERLESS GRINDING 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 Smith Islas MD CHEMISTRY ORDERABLES Edited Performing Organization Address [facility] de Phone Number INTERFACE SYSTEM Refer to clinic/hospital department * (ABNORMAL) COMPREHENSIVE METABOLIC PANEL (10/02/2007 9:05 AM CENTERLESS GRINDING 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) GLUCOSE 112(H) 65 - 99 mg/dL INTERFACE SYSTEM CREATININE 0.53 0.51 - 0.95 mg/dL INTERFACE SYSTEM CALCIUM 9.7 8.4 - 10.2 mg/dL INTERFACE SYSTEM ALKALINE PHOSPHATASE 129(H) 35 - 104 U/L INTERFACE SYSTEM AST 18 12 - 32 U/L INTERFACE SYSTEM ALT 21 0 - 31 U/L INTERFACE SYSTEM TOTAL PROTEIN 7.7 6.3 - 8.6 g/dL INTERFACE SYSTEM ALBUMIN 4.3 3.4 - 4.8 g/dL INTERFACE SYSTEM BILIRUBIN TOTAL 0.5 0.2 - 1.0 mg/dL INTERFACE SYSTEM BUN 17 6 - 20 mg/dL INTERFACE SYSTEM SODIUM 139 135 - 145 mmol/L INTERFACE SYSTEM POTASSIUM 4.0 3.5 - 4.9 mmol/L INTERFACE SYSTEM CHLORIDE 103 96 - 108 mmol/L INTERFACE SYSTEM CO2 26 22 - 30 mmol/L INTERFACE SYSTEM GFR, >60 >=60 mL/min/1. 7 sq meter INTERFACE SYSTEM GFR >60 >=60 mL/min/1. 7 sq meter INTERFACE SYSTEM Comment: Estimated GFR rate interpretative information for both Americans and non- Americans is available on the [facility] Intranet at: [email or web address] Select: Lab Policies and Procedures Select: Reference Ranges - GFR 10/02/2007 9:05 AM CENTERLESS GRINDING 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 Smith Islas MD CHEMISTRY ORDERABLES Edited Performing Organization Address [facility] Phone Number INTERFACE SYSTEM Refer to clinic/hospital department * TSH (10/02/2007 9:05 AM CENTERLESS GRINDING 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) TSH 2.89 0.27 - 4.20 uU/mL INTERFACE SYSTEM 10/02/2007 9:05 AM CENTERLESS GRINDING 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 Smith Islas MD CHEMISTRY ORDERABLES Edited Performing Organization Address [facility] Co de Phone Number INTERFACE SYSTEM Refer to clinic/hospital department * (ABNORMAL) HEMOGLOBIN A1C (10/02/2007 9:05 AM CENTERLESS GRINDING 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) HEMOGLOBIN A1C 6.8(H) 4.1 - 6.1 % of Hgb INTERFACE SYSTEM GLUCOSE, MEAN BLOOD 165 mg/dL INTERFACE SYSTEM 10/02/2007 9:05 AM CENTERLESS GRINDING 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 Smith Islas MD CHEMISTRY ORDERABLES Edited Performing Organization Address [facility] Co de Phone Number INTERFACE SYSTEM Refer to clinic/hospital department documented in this encounter Visit Diagnoses Diagnosis Type II or unspecified type diabetes mellitus without mention of complication, not stated as uncontrolled (CMS/HCC) Type II or unspecified type diabetes mellitus without mention of complication, not stated as uncontrolled documented in this encounter Care Teams Duty Manager Relationship Specialty Start Date End Date Smith Islas MD [address] [place] [phone] PCP - General 10/22/03 07/11/15 documented as of this encounter
--- OUTSIDE RECORDS SUMMARY | 2024-12-17 08:53 | XMS_ITS | Encounter Summary ---
Author Organization [facility] Address [address] [place] [address] Care Team Providers Care Cable Installer Name Role Phone Becka Escobedo MD Primary Care Provider [phone] Encounter Details Date Type Department Care Team (Latest Contact Info) Description 01/12/2009 Outpatient Historical [facility] Becka Mcghee MD [address] [place] [phone] Malignant Neoplasm of Breast (Female), Unspecified Site (CMS/HCC) Social History Tobacco Use Types Packs/Day Years Used Date Smoking Tobacco: Former Cigarettes Q uit: 06/26/1988 Alcohol Use Standard Drinks/Week Comments No 0 (1 standard drink = 0.6 oz pur e alcohol) Comments No Sex and Gender Information Value Date Recorded Sex Assigned at Not on file Legal Sex Female 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 Gender Identity Not on file Sexual Orientation Not on file documented as of this encounter Plan of Treatment Not on file documented as of this encounter Procedures Procedure Name Priority Date/Time Associated Diagnosis Comments MAMMO DIAGNOSTIC UNI LEFT W OR WO CAD Timed Study 01/12/2009 9:34 AM CDT documented in this encounter Results * MAMMO DIGITAL DIAG UNI LEFT (01/12/2009 9:34 AM CDT) Anatomical Region Laterality Modality Breast Left Other 01/12/2009 9:34 AM CDT Narrative 01/12/2009 4:33 PM CDT [address] [address] Admit Date: 01/12/2009 [facility] Sex: F Admit Prov: BECKA ESCOBEDO Date: 1945 Primary Care Prov: BECKA ESCOBEDO CMRN: [id number] Room: [facility] SSN: [address] [place] [address] IMAGING SERVICES Ordering Prov: BECKA ESCOBEDO Accession Number: [id number] Interpretation Exam: Left unilateral full field digital screening mammogram with CAD Date: 01/12/2009 History: Personal history of right breast cancer treated with mastectomy. Technique: Full field digital craniocaudad and mediolateral oblique views were obtained of the left breast. Computer aided detection was performed. Comparison: 12/2007, 04/2007 Parenchymal Composition: Scattered fibroglandular densities. Findings: No suspicious mass, suspicious microcalcifications or architectural distortion is identified in the left breast. Since the prior study, there has been no significant interval change. CAD detects no significant abnormality. BI-RADS Category 1: Negative. Recommendation: Annual mammography of the left breast is recommended. Assessment BIRADS: 1-Negative Recommendation: Normal interval follow-up Dictated by: YUE HENSLEY Electronically signed by: YUE HENSLEY 01/12/2009 16:33 Transcribed: 01/12/2009 15:16 AMK Procedure Note Yue Hensley - 01/12/2009 [facility] [address] [place], [place] [address] Admit Date: 01/12/2009 MORRIS STOKES Sex: F Admit Prov: BECKA ESCOBEDO Date: 1945 Primary Care Prov: BECKA ESCOBEDO CMRN: [id number] Room: Kris SSN: [id number] IMAGING SERVICES Ordering Prov: BECKA ESCOBEDO Interpretation Exam: Left unilateral full field digital screening mammogram withCAD Date: 01/12/2009 History: Personal history of right breast cancer treated withmastectomy. Technique: Full field digital craniocaudad and mediolateral obliqueviews were obtained of the left breast. Computer aided detection wasperformed. Comparison: 12/2007, 04/2007 Parenchymal Composition: Scattered fibroglandular densities. Findings: No suspicious mass, suspicious microcalcifications or architectural distortion is identified in the left breast. Since theprior study, there has been no significant interval change. CAD detectsno significant abnormality. BI-RADS Category 1: Negative. Recommendation: Annual mammography of the left breast isrecommended. Assessment BIRADS: 1-Negative Recommendation: Normal interval follow-up Dictated by: YUE HENSLEY Electronically signed by: YUE HENSLEY 01/12/2009 16:33 Transcribed: 01/12/2009 15:16 AMK Becka Escobedo MD MAMMO ORDERABLES Final Result documented in this encounter Visit Diagnoses Diagnosis Malignant neoplasm of breast (female), unspecified site (CMS/HCC) Malignant neoplasm of breast (female), unspecified site documented in this encounter Care Teams Cable Installer Relationship Specialty Start Date End Date Becka Escobedo MD [address] [place] [phone] PCP - General 10/22/03 07/11/15 documented as of this encounter
--- OUTSIDE RECORDS SUMMARY | 2024-12-17 08:53 | XMS_ITS | Encounter Summary ---
Author Organization [facility] Address 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 HISTORY: progressive sinus sarabjit, ear pain despite levaquin HISTORY: 272.4-HYPERLIPIDEMIA The patient is tolerating the medications. PHYSICAL EXAMINATION: EARS, NOSE, MOUTH AND THROAT: EARS: EFFUSION PRESENT BILATERALLY, TYMPANIC MEMBRANES INFLAMED BILATERALLY. ORAL: OROPHARYNX ERYTHEMATOUS. NECK/THYROID: Trachea midline. No thyroid enlargement, tenderness, or mass. No supraclavicular or cervical adenopathy. CARDIOVASCULAR: CARDIAC: GRADE II/ SYSTOLIC MURMUR. EDEMA/VARICOSITIES OF EXTREMITIES: No edema or varicosities. ASSESSMENT/PLAN: 272.4-HYPERLIPIDEMIA hold med on ketek 461.9-SINUSITIS UNSPECIFIED MEDICATIONS: MEDROL (KEVEN) ORAL TABLET 4 MG, DIRECTED, 1 Dispensed, status: CONTINUED, 11/21/2005. KETEK ORAL TABLET 400 MG, 2 Every Morning, 10 Dispensed, status: NEW PRESCRIPTION, 11/21/2005. SIM ORAL TABLET 180 MG, 1 Every Day, 30 Dispensed, 4 Fills, status: NEW PRESCRIPTION, 11/21/2005. RETURN VISIT : Instructed to call if not improving. Electronically Signed by: Smith Islas MD on Monday, November 21, 2005 documented in this encounter Plan of Treatment Not on file documented as of this encounter Visit Diagnoses Not on filedocumented in this encounter Care Teams Insurance Writer Relationship Specialty Start Date End Date Smith Islas MD [address] [place] [phone] PCP - General 10/22/03 07/11/15 documented as of this encounter
--- OUTSIDE RECORDS SUMMARY | 2024-12-17 08:53 | XMS_ITS | Encounter Summary ---
Author Organization [facility] Address [address] [place] [address] Care Team Providers Care Industrial Photographer Name Role Phone Smith Islas MD Primary Care Provider [phone] Encounter Details Date Type Department Care Team (Latest Contact Info) Description 03/16/2004 Outpatient Historical [facility] Davonte Bermudez MD [address] [facility] [address] [place] [address] ACQ SPONDYLOLISTHESIS (Primary Dx) Social History Tobacco Use Types Packs/Day Years Used Date Smoking Tobacco: Never Assessed Comments Unknown Sex and Gender Information Value Date Recorded Sex Assigned at Not on file Legal Sex Female 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
--- OUTSIDE RECORDS SUMMARY | 2024-12-17 08:53 | XMS_ITS | Encounter Summary ---
Author Organization [facility] Address [address] [place] [address] Care Team Providers Care Blasting Gang Miner Name Role Phone Smith Islas MD Primary Care Provider [phone] Encounter Details Date Type Department Care Team (Late st Contact Info) Description 10/04/2007 Outpatient [facility] Internal Medicine [address] [address] Smith Islas MD [address] [place] [phone] Social History Tobacco Use Types Packs/Day Years Used Date Smoking Tobacco: Never Assessed Comments Unknown Sex and Gender Information Value Date Recorded Sex Assigned at Not on file Legal 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
--- OUTSIDE RECORDS SUMMARY | 2024-12-17 08:53 | XMS_ITS | Encounter Summary ---
Author Organization [facility] Address [address] [place] [address] Care Team Providers Care Horizontal Resaw Operator Name Role Phone Smith Islas MD Primary Care Provider [phone] Encounter Details Date Type Department Care Team (Latest Contact Info) Description 06/24/2008 Outpatient Historical [facility] Smith Islas MD [address] [facility] [address] [place] [phone] DM w/o Complication Type II (CMS/HCC) Social History Tobacco Use Types Packs/Day Years Used Date Smoking Tobacco: Former Alcohol Use Standard Drinks/Week Comments No 0 (1 standard drink = 0.6 oz pur e alcohol) Comments No Sex and Gender Information Value Date Recorded Sex Assigned at Not on file Legal Sex Female 3:30 AM PHARMACIST Gender Identity Not on file Sexual Orientation [...] uncontrolled documented in this encounter Care Teams Horizontal Resaw Operator Relationship Specialty Start Date End Date Smith Islas MD [address] [facility] [address] [place] [phone] PCP - General 10/22/03 07/11/15 documented as of this encounter
--- OUTSIDE RECORDS SUMMARY | 2024-12-17 08:53 | XMS_ITS | Encounter Summary ---
Author Organization [facility] Address [address] [place] [address] Care Team Providers Care Manufacturing Assembler Name Role Phone Smith Islas MD Primary Care Provider [phone] Encounter Details Date Type Department Care Team (Late st Contact Info) Description 08/04/2004 Outpatient [facility] Internal Medicine [address] [address] Smith Islas MD [address] [place] [phone] Social History Tobacco Use Types Packs/Day Years Used Date Smoking Tobacco: Never Assessed Comments Unknown Sex and Gender Information Value Date Recorded Sex Assigned at Not on file Legal Sex Female 3:30 AM INVENTORY SPECIALIST Gender Identity Not on file Sexual Orientation Not on file documented as of this encounter Plan of Treatment Not on file documented as of this encounter Visit Diagnoses Not on filedocumented in this encounter Care Teams Manufacturing Assembler Relationship Specialty Start Date End Date Smith Islas MD [address] [place] [address] [address] [place] [address] PCP - General 10/22/03 07/11/15 documented as of this encounter
--- OUTSIDE RECORDS SUMMARY | 2024-12-17 08:53 | XMS_ITS | Encounter Summary ---
Author Organization [facility] Address [address] [place] [address] Care Team Providers Care All Source Intelligence Name Role Phone Smith Islas MD Primary Care Provider [phone] Encounter Details Date Type Department Care Team (Latest Contact Info) Description 08/07/2005 Outpatient Historical [facility] Davonte Bermudez MD [address] [place] [address] SPRAIN LUMBAR REGION (Primary Dx) Social History Tobacco Use Types Packs/Day Years Used Date Smoking Tobacco: Never Assessed Comments Unknown Sex and Gender Information Value Date Recorded Sex Assigned at Not on file Legal Sex Female 3:30 AM CREW ATTENDANT Gender Identity Not on file Sexual Orientation Not on file documented as of this encounter Plan of Treatment Not on file documented as of this encounter Visit Diagnoses Diagnosis Sprain of lumbar region- Primary documented in this encounter Care Teams All Source Intelligence Relationship Specialty Start Date End Date Smith Islas MD [address] [place] [address] [address] [place] [phone] PCP - General 10/22/03 07/11/15 documented as of this encounter
--- OUTSIDE RECORDS SUMMARY | 2024-12-17 08:53 | XMS_ITS | Encounter Summary ---
Author Organization [facility] Address [address] [place] [address] Care Team Providers Care Solar Energy Technician Name Role Phone Smith Islas MD Primary Care Provider [phone] Encounter Details Date Type Department Care Team (Late st Contact Info) Description 10/06/2004 Outpatient Historical [facility] Smith Islas MD [address] [place] [phone] ACUTE SINUSITIS NOS (Primary Dx) Social History Tobacco Use Types Packs/Day Years Used Date Smoking Tobacco: Never Assessed Comments Unknown Sex and Gender Information Value Date Recorded Sex Assigned at Not on file Legal Sex Female 3:30 AM DOCTOR OF PODIATRY Gender Identity Not on file Sexual Orientation Not on file documented as of this encounter Plan of Treatment Not on file documented as of this encounter Visit Diagnoses Diagnosis Acute sinusitis, unspecified- Primary documented in this encounter Care Teams Solar Energy Technician Relationship Specialty Start Date End Date Smith Islas MD [address] [place] [address] [address] [place] [address] PCP - General 10/22/03 07/11/15 documented as of this encounter
--- OUTSIDE RECORDS SUMMARY | 2024-12-17 08:53 | XMS_ITS | Encounter Summary ---
Author Organization [facility] Address 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
--- OUTSIDE RECORDS SUMMARY | 2024-12-17 08:53 | XMS_ITS | Encounter Summary ---
Author Organization [facility] Address 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
--- OUTSIDE RECORDS SUMMARY | 2024-12-17 08:53 | XMS_ITS | Encounter Summary ---
Author Organization [facility] Address [address] [place] [address] Care Team Providers Care Bowling Ball Mold Assembler Name Role Phone Smith Islas MD Primary Care Provider [phone] Encounter Details Date Type Department Care Team (Late st Contact Info) Description 10/04/2007 Outpatient [facility] Internal Medicine [address] [address] Smith Islas MD [address] [place] [phone] Social History Tobacco Use Types Packs/Day Years Used Date Smoking Tobacco: Never Assessed Comments Unknown Sex and Gender Information Value Date Recorded Sex Assigned at Not on file Legal Sex Female 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
--- OUTSIDE RECORDS SUMMARY | 2024-12-17 08:53 | XMS_ITS | Encounter Summary ---
Author Organization [facility] Address [address] [place] [address] Care Team Providers Care Accounting Consultant Name Role Phone Smith Islas MD Primary Care Provider [phone] Encounter Details Date Type Department Care Team (Late st Contact Info) Description 06/06/2005 Outpatient Historical [facility] Internal Medicine [address] [address] Smith Islas MD [address] [place] [phone] Social History Tobacco Use Types Packs/Day Years Used Date Smoking Tobacco: Never Assessed Comments Unknown Sex and Gender Information Value Date Recorded Sex Assigned at Not on file Legal Sex Female 3:30 AM RIB CHOPPER Gender Identity Not on file Sexual Orientation Not on file documented as of this encounter Plan of Treatment Not on file documented as of this encounter Visit Diagnoses Not on filedocumented in this encounter Care Teams Accounting Consultant Relationship Specialty Start Date End Date Smith Islas MD [address] [place] [address] [address] [place] [address] PCP - General 10/22/03 07/11/15 documented as of this encounter
--- OUTSIDE RECORDS SUMMARY | 2024-12-17 08:53 | XMS_ITS | Encounter Summary ---
Author Organization [facility] Address [address] [place] [address] Care Team Providers Care Medical Sales Consultant Name Role Phone Smith Islas MD Primary Care Provider [phone] Encounter Details Date Type Department Care Team (Late st Contact Info) Description 09/21/2004 Outpatient Historical [facility] Internal Medicine [address] [address] Smith Islas MD [address] [place] [phone] Social History Tobacco Use Types Packs/Day Years Used Date Smoking Tobacco: Never Assessed Comments Unknown Sex and Gender Information Value Date Recorded Sex Assigned at Not on file Legal Sex Female 3:30 AM RUBBER WASHER Gender Identity Not on file Sexual Orientation Not on file documented as of this encounter Last Filed Vital Signs Vital Sign Reading Time Taken Comments Blood Pressure 112/70 09/21/2004 11:00 AM RUBBER WASHER Pulse - - Temperature 36.1 C (96.9 F) 09/21/2004 11:00 AM RUBBER WASHER Respiratory Rate - - Oxygen Saturation - - Inhaled Oxygen Concentration - - Weight 96.2 kg (212 lb) 09/21/2004 11:00 AM RUBBER WASHER Height - - Body Mass Index 35.28 10/14/2003 10:30 AM RUBBER WASHER documented in this encounter Plan of Treatment Not on file documented as of this encounter Visit Diagnoses Not on filedocumented in this encounter Care Teams Medical Sales Consultant Relationship Specialty Start Date End Date Smith Islas MD [address] [place] [phone] PCP - General 10/22/03 07/11/15 documented as of this encounter
--- OUTSIDE RECORDS SUMMARY | 2024-12-17 08:53 | XMS_ITS | Encounter Summary ---
Author Organization [facility] Address [address] [place] [address] Care Team Providers Care State Game Protector Name Role Phone Smith Islas MD Primary Care Provider [phone] Encounter Details Date Type Department Care Team (Late st Contact Info) Description 06/06/2005 Outpatient Historical [facility] Internal Medicine [address] [address] Smith Islas MD [address] [place] [phone] Social History Tobacco Use Types Packs/Day Years Used Date Smoking Tobacco: Never Assessed Comments Unknown Sex and Gender Information Value Date Recorded Sex Assigned at Not on file Legal Sex Female 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
--- OUTSIDE RECORDS SUMMARY | 2024-12-17 08:54 | XMS_ITS | Encounter Summary ---
Author Organization [facility] Address [address] [place] [address] Care Team Providers Care Freezer Worker Name Role Phone Smith Islas MD Primary Care Provider [phone] Encounter Details Date Type Department Care Team (Late st Contact Info) Description 08/31/2006 Outpatient Historical [facility] Internal Medicine [address] [address] Smith Islas MD [address] [place] [phone] Social History Tobacco Use Types Packs/Day Years Used Date Smoking Tobacco: Never Assessed Comments Unknown Sex and Gender Information Value Date Recorded Sex Assigned at Not on file Legal Sex Female 3:30 AM RIB STIFFENER AND HEEL DIPPER Gender Identity Not on file Sexual Orientation Not on file documented as of this encounter Last Filed Vital Signs Vital Sign Reading Time Taken Comments Blood Pressure 130/80 08/31/2006 9:30 AM RIB STIFFENER AND HEEL DIPPER Pulse - - Temperature - - Respiratory Rate - - Oxygen Saturation - - Inhaled Oxygen Concentration - - Weight 98 kg (216 lb) 08/31/2006 9:30 AM RIB STIFFENER AND HEEL DIPPER Height - - Body Mass Index 35.94 10/14/2003 10:30 AM RIB STIFFENER AND HEEL DIPPER documented in this encounter Plan of Treatment Not on file documented as of this encounter Visit Diagnoses Not on filedocumented in this encounter Care Teams Freezer Worker Relationship Specialty Start Date End Date Smith Islas MD [address] [place] [phone] PCP - General 10/22/03 07/11/15 documented as of this encounter
--- OUTSIDE RECORDS SUMMARY | 2024-12-17 08:54 | XMS_ITS | Encounter Summary ---
Author Organization [facility] Address [address] [place] [address] Care Team Providers Care Venereal Disease Investigator Name Role Phone Smith Islas MD Primary Care Provider [phone] Encounter Details Date Type Department Care Team (Late st Contact Info) Description 11/30/2006 Orders Only [facility] Internal Medicine [address] [address] Smith Islas MD [address] [place] [phone] Social History Tobacco Use Types Packs/Day Years Used Date Smoking Tobacco: Never Assessed Comments Unknown Sex and Gender Information Value Date Recorded Sex Assigned at Not on file Legal Sex Female 3:30 AM FLYING SQUAD WORKER Gender Identity Not on file Sexual Orientation Not on file documented as of this encounter Progress Notes * Smith Islas MD - 02/14/2008 10:58 AM CDT WEIGHT: 218lbs BLOOD PRESSURE: 120/70 Right Arm Sitting NURSE NAME: Gabino Keily, R CHIEF COMPLAINT Patient here for follow up diabetes, hypothyroidism. 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 250.00-DM II CONTROLLED The diabetes has worsened. 272.4-HYPERLIPIDEMIA The patient is tolerating the medications. 311-DEPRESSION better off work ROS: CARDIAC: No chest pain, palpitations, orthopnea, dyspnea on exertion, or paroxysmal nocturnal dyspnea. RESPIRATORY: No dyspnea, cough, hemoptysis or wheezing. : No frequency, urgency, hematuria or dysuria. GI: No abdominal pain, nausea, vomiting, diarrhea, constipation, melena, or hematochezia. PAST MEDICAL HISTORY: reviewed SOCIAL HISTORY: TOBACCO USE: Has no significant smoking history. 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 PHYSICAL EXAMINATION: CONSTITUTIONAL: GENERAL APPEARANCE: Healthy appearing patient in no distress. EARS, NOSE, MOUTH AND THROAT: ORAL: Inspection of gums, lips, palate, and teeth normal. No scars, lesions, or masses. Oral mucosaunremarkable with non-inflamed posterior pharynx. NECK/THYROID: Trachea midline. No thyroid enlargement, tenderness, or mass. No supraclavicular or cervical adenopathy. RESPIRATORY: Clear to auscultation and percussion. Normal respiratory effort. CARDIOVASCULAR: CARDIAC: Regular rhythm. No murmurs, rubs, or gallops. ARTERIAL: No aortic bruits. EDEMA/VARICOSITIES OF EXTREMITIES: No edema or varicosities. GASTROINTESTINAL: ABDOMEN: Soft, non-tender, without masses. Bowel sounds active. LIVER/SPLEEN/KIDNEY: No hepatosplenomegaly, tenderness or nodularity. Kidneys not palpable. SKIN: SKIN: Warm, dry, no diaphoresis, no significant lesions, irritation, rashes or ulcers. No induration, obvious subcutaneous nodules or tightening. 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 LAB ORDERS: 3 mo Order number: [id number] Test Ordered: COMPREHENSIVE METABOLIC PANEL W/ GLOMERULAR FILTRATION RATE, ESTIMATED (EGFR) [id number] Order number: [id number] Test Ordered: HEMOGLOBIN A1c 496 Order number: [id number] Test Ordered: LIPID PANEL 7600 Order number: [id number] Test Ordered: TSH 899 311-DEPRESSION doing better try and wean down zoloft MEDICATIONS: ZOLOFT ORAL TABLET 50 MG, 1 Every Day, 30 Dispensed, 3 Fills, status: NEW PRESCRIPTION, 11/30/2006. RETURN VISIT : Patient instructed to return in 3 months. Electronically Signed by: Smith Islas MD on Thursday, November 30, 2006 documented in this encounter Plan of Treatment Not on file documented as of this encounter Visit Diagnoses Not on filedocumented in this encounter Care Teams Venereal Disease Investigator Relationship Specialty Start Date End Date Smith Islas MD [address] [place] [phone] PCP - General 10/22/03 07/11/15 documented as of this encounter
--- OUTSIDE RECORDS SUMMARY | 2024-12-17 08:54 | XMS_ITS | Encounter Summary ---
Author Organization [facility] Address [address] [place] [address] Care Team Providers Care Gasoline Engine Inspector Name Role Phone Smith Islas MD Primary Care Provider [phone] Encounter Details Date Type Department Care Team (Late st Contact Info) Description 06/01/2006 Orders Only [facility] Internal Medicine [address] [address] Smith Islas MD [address] [place] [phone] Social History Tobacco Use Types Packs/Day Years Used Date Smoking Tobacco: Never Assessed Comments Unknown Sex and Gender Information Value Date Recorded Sex Assigned at Not on file Legal Sex Female 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 The patient denies polyuria, polyphagia, polydipsia, change in vision, foot ulcerations, or hypoglycemic episodes. The HgbA1c is not at goal. 272.4-HYPERLIPIDEMIA worse off med, some improvement in aching 281.8-OTHER DEFICIENCY ANEMIAS stable 311-DEPRESSION The depression remains stable. 461.9-SINUSITIS UNSPECIFIED The patient's acute sinusitis has worsened.allergieis pas t few days ROS: ENDOCRINE: No heat or cold intolerance, no excessive thirst. CARDIAC: No chest pain, palpitations, orthopnea, dyspnea on exertion, or paroxysmal nocturnal dyspnea. RESPIRATORY: No dyspnea, cough, hemoptysis or wheezing. : No frequency, urgency, hematuria or dysuria. GI: No abdominal pain, nausea, vomiting, diarrhea, constipation, melena, or hematochezia. PAST MEDICAL HISTORY: reviewed SOCIAL HISTORY: TOBACCO USE: Has no significant smoking history. 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 PHYSICAL EXAMINATION: CONSTITUTIONAL: GENERAL APPEARANCE: Healthy appearing patient in no distress. EARS, NOSE, MOUTH AND THROAT: EARS: EFFUSION PRESENT BILATERALLY. ORAL: Inspection of gums, lips, palate, and teeth normal. No scars, lesions, or masses. Oral mucosaunremarkable with non-inflamed posterior pharynx. NECK/THYROID: Trachea midline. No thyroid enlargement, tenderness, or mass. No supraclavicular or cervical adenopathy. RESPIRATORY: Clear to auscultation and percussion. Normal respiratory effort. CARDIOVASCULAR: CARDIAC: Regular rhythm. No murmurs, rubs, or gallops. ARTERIAL: Aortic pulses of normal amplitude with no bruits. EDEMA/VARICOSITIES OF EXTREMITIES: No edema or varicosities. GASTROINTESTINAL: ABDOMEN: Soft, non-tender, without masses. Bowel sounds active. LIVER/SPLEEN/KIDNEY: No hepatosplenomegaly, tenderness or nodularity. Kidneys not palpable. MUSCULOSKELETAL EXAM: EXTREMITIES: DIABETIC II FOOT EXAM: The patient`s diabetic foot exam is within normal limits. Negative for callous, ulcers, tinea pedis, onychomycosis, arterial insufficiency or neuropathy. BILATERAL LOWER EXTREMITIES: No misalignment or tenderness. Full range of motion. Normal stability,strength and tone. 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 LAB ORDERS: 3 mo Order number: [id number] Test Ordered: COMPREHENSIVE METABOLIC PANEL W/ GLOMERULAR FILTRATION RATE, ESTIMATED (EGFR) [id number] Order number: [id number] Test Ordered: LIPID PANEL 7600 Order number: [id number] Test Ordered: MICROALBUMIN/CREATININE RATIO, RANDOM URINE 6517 Order number: [id number] Test Ordered: TSH 899 Order number: [id number] Test Ordered: HEMOGLOBIN A1c 496 272.4-HYPERLIPIDEMIA try low dose vytorin qod MEDICATIONS: PRAVACHOL ORAL TABLET 40 MG, 1 Every Day, 30 Dispensed, 3 Fills, status: DISCONTINUED, 06/01/2006. VYTORIN ORAL TABLET 10-20 MG, 1 Every Other Day, 30 Dispensed, status: NEW PRESCRIPTION, 06/01/2006. 311-DEPRESSION cont med 461.9-SINUSITIS UNSPECIFIED MEDICATIONS: FLONASE NASAL SUSPENSION 50 MCG/ACT, DIRECTED, 2 Dispensed, status: CONTINUED, 07/18/2005. 715.90-OSTEOARTHROSIS UNSPECIFIED discussed, stable RETURN VISIT : Patient instructed to return in 3 months. Electronically Signed by: Smith Islas MD on Thursday, June 01, 2006 documented in this encounter Plan of Treatment Not on file documented as of this encounter Visit Diagnoses Not on filedocumented in this encounter Care Teams Gasoline Engine Inspector Relationship Specialty Start Date End Date Smith Islas MD [address] [place] [phone] PCP - General 10/22/03 07/11/15 documented as of this encounter
--- OUTSIDE RECORDS SUMMARY | 2024-12-17 08:54 | XMS_ITS | Encounter Summary ---
Author Organization [facility] Address [address] [place] [address] Care Team Providers Care Precision Structural Metal Fitter Name Role Phone Smith Islas MD Primary Care Provider [phone] Encounter Details Date Type Department Care Team (Late st Contact Info) Description 03/01/2007 Outpatient Historical [facility] Internal Medicine [address] [address] Smith Islas MD [address] [place] [phone] Social History Tobacco Use Types Packs/Day Years Used Date Smoking Tobacco: Never Assessed Comments Unknown Sex and Gender Information Value Date Recorded Sex Assigned at Not on file Legal Sex Female 3:30 AM QUALITY ASSURANCE SUPERVISOR TRIM Gender Identity Not on file Sexual Orientation Not on file documented as of this encounter Last Filed Vital Signs Vital Sign Reading Time Taken Comments Blood Pressure 118/74 03/01/2007 9:30 AM CDT Pulse - - Temperature - - Respiratory Rate - - Oxygen Saturation - - Inhaled Oxygen Concentration - - Weight 96.6 kg (213 lb) 03/01/2007 9:30 AM CDT Height - - Body Mass Index 35.45 10/14/2003 10:30 AM QUALITY ASSURANCE SUPERVISOR TRIM documented in this encounter Plan of Treatment Not on file documented as of this encounter Visit Diagnoses Not on filedocumented in this encounter Care Teams Precision Structural Metal Fitter Relationship Specialty Start Date End Date Smith Islas MD [address] [place] [phone] PCP - General 10/22/03 07/11/15 documented as of this encounter
--- OUTSIDE RECORDS SUMMARY | 2024-12-17 08:54 | XMS_ITS ---
Author Organization [facility] elizabeth Address [address] [place] [address] Care Team Providers Care Engineer [employer] Name Role Phone Miranda Melendez Unavailable [phone] zzzzMigration, zzzzProvider Unavailable Unav ailable REASON FOR VISIT EMR-Charanjit Encounters Encounter Location Date Provider Diagnosis [facility] [address] [facility] [address] [place] [address] 07/14/2023 zzzzProvider zzzzMigration Plan Of Treatment Medication Medication Name Sig Start Date Stop Date Notes Nabumetone 500 MG take 2 tablets (1,00 0 mg) by oral route 2 times per day Oral 2 02/18/2019 Epidiolex 100 mg/mL oral Gabapentin 100 MG take 1 capsule (100 mg) by oral route 3 times per day Oral 3 05/20/2019 Etodolac 400 MG 1 tid prn Oral 05/20/2019 Diclofenac Sodium 75 MG take 1 tablet (7 5 mg) by oral route 2 times per day for 30 days Oral 2 for 30 02/18/2019 09/16/2019 Meloxicam 15 MG take 1 tablet (15 mg ) by oral route once daily Oral 1 metFORMIN HCl 500 MG take 1 tablet (500 mg) by oral route 2 times per day with morning and evening meals Oral 2 Zoloft 100 MG take 1 tablet (100 m g) by oral route once daily Oral 1 Gabapentin 300 MG 1 BID Oral 06/25/2019 busPIRone HCl 10 MG Oral Progress Notes * Lilliana STOKESOB:1945 (78 yo F)Acc No.[id number]:07/14/2023 Patient: Veronica AVERYMEREDITHWendy :1945 A ge:77 Y S ex:Female Address:[address] [place] [address], [address] * Refills Stop metFORMIN HCl Tablet, 500 MG, Oral, 0, take 1 tablet (500 mg) by oral route 2 times per day with morning and evening meals, 2 Stop Gabapentin Capsule, 300 MG, Oral, 60, 1 BID Stop busPIRone HCl Tablet, 10 MG, Oral, 0 Stop Diclofenac Sodium Tablet Delayed Release, 75 MG, Oral, 60, take 1 tablet (75 mg) by oral route 2 times per day for 30 days, 2, 30 Stop Etodolac Tablet, 400 MG, Oral, 90, 1 tid prn Stop Gabapentin Capsule, 100 MG, Oral, 90, take 1 capsule (100 mg) by oral route 3 times per day, 3 Stop Nabumetone Tablet, 500 MG, Oral, 120, take 2 tablets (1,000 mg) by oral route 2 times per day, 2 Stop Zoloft Tablet, 100 MG, Oral, 0, take 1 tablet (100 mg) by oral route once daily, 1 Stop Epidiolex solution, 100 mg/mL, oral, 0 Stop Meloxicam Tablet, 15 MG, Oral, 0, take 1 tablet (15 mg) by oral route once daily, 1 Subjective: * Chief Complaints: * E MR-Charanjit * Medical History: * Surgical History: * Hospitalization/Major Diagno stic Procedure: * Medications: Objective: * Vitals: * Physical Examination: Assessment: Plan: * Treatment: * Procedure Codes: * true * Date: Generated for Mabel burgos/Ceasar/Juan on: 0 12/17/2024 08:54 AM CDT
--- OUTSIDE RECORDS SUMMARY | 2024-12-17 08:54 | XMS_ITS | Encounter Summary ---
Author Organization [facility] Address [address] [place] [address] Care Team Providers Care Ham Curer Name Role Phone Smith Islas MD Primary Care Provider Encounter Details Date Type Department Care Team (Late st Contact Info) Description 01/15/2007 Orders Only [facility] Internal Medicine [address] [address] Smith Islas MD [address] [place] [phone] Social History Tobacco Use Types Packs/Day Years Used Date Smoking Tobacco: Never Assessed Comments Unknown Sex and Gender Information Value Date Recorded Sex Assigned at Not on file Legal Sex Female 3:30 AM DATABASE ANALYST Gender Identity Not on file Sexual Orientation Not on file documented as of this encounter Progress Notes * Smith Islas MD - 02/13/2008 5:44 PM CDT TIME:02:50 pm PATIENT`S HOME PHONE: PATIENT`S WORK PHONE: PATIENT`S INSURANCE: [employer] [facility] [employer] WHO TOOK THE CALL: Maribel Cobb L GENERAL INFORMATION WHO CALLED: Pharmacy called. PHARMACY NUMBER: [phone] SECTION 1: REQUESTED ACTION licasl 01/15/07 at 03:51 pm: MEDICATION REQUEST: MEDICATION REQUEST: Patient requests a refill. gen Zoloft 50 & gen Mobic. DOCTOR`S RESPONSE: justine 01/15/07 at 04:06 pm MEDICATIONS: ZOLOFT ORAL TABLET 50 MG, 1 Every Day, 90 Dispensed, 3 Fills, status: CONTINUED, 01/15/2007. MOBIC ORAL TABLET 7.5 MG, 1 Every Day, 30 Dispensed, 6 Fills, status: CONTINUED, 01/15/2007. FINAL ACTION: licasl 01/15/07 at 06:22 pm Called pharmacy at 01/15/07 at 06:22 pm. Electronically Signed by: Maribel Cobb on Monday, January 15, 2007 documented in this encounter Plan of Treatment Not on file documented as of this encounter Visit Diagnoses Not on filedocumented in this encounter Care Teams Ham Curer Relationship Specialty Start Date End Date Smith Islas MD [address] [place] [phone] PCP - General 10/22/03 07/11/15 documented as of this encounter
--- OUTSIDE RECORDS SUMMARY | 2024-12-17 08:54 | XMS_ITS | Encounter Summary ---
Author Organization [facility] Address [address] [place] [address] Care Team Providers Care Debit Agent Name Role Phone Smith Islas MD Primary Care Provider [phone] Encounter Details Date Type Department Care Team (Late st Contact Info) Description 03/02/2006 Outpatient Historical [facility] Internal Medicine [address] [address] Smith Islas MD [address] [place] [phone] Social History Tobacco Use Types Packs/Day Years Used Date Smoking Tobacco: Never Assessed Comments Unknown Sex and Gender Information Value Date Recorded Sex Assigned at Not on file Legal Sex Female 3:30 AM ETHANOL OPERATOR Gender Identity Not on file Sexual Orientation Not on file documented as of this encounter Last Filed Vital Signs Vital Sign Reading Time Taken Comments Blood Pressure 120/80 03/02/2006 9:30 AM CDT Pulse - - Temperature - - Respiratory Rate - - Oxygen Saturation - - Inhaled Oxygen Concentration - - Weight 102.5 kg (226 lb) 03/02/2006 9:30 AM CDT Height - - Body Mass Index 37.61 10/14/2003 10:30 AM ETHANOL OPERATOR documented in this encounter Plan of Treatment Not on file documented as of this encounter Visit Diagnoses Not on filedocumented in this encounter Care Teams Debit Agent Relationship Specialty Start Date End Date Smith Islas MD [address] [place] [phone] PCP - General 10/22/03 07/11/15 documented as of this encounter
--- OUTSIDE RECORDS SUMMARY | 2024-12-17 08:54 | XMS_ITS | Encounter Summary ---
Author Organization [facility] Address [address] [place] [address] Care Team Providers Care Leadership Program Internship Name Role Phone Smith Islas MD Primary Care Provider [phone] Encounter Details Date Type Department Care Team (Late st Contact Info) Description 06/01/2006 Outpatient Historical [facility] Internal Medicine [address] [address] Smith Islas MD [address] [place] [phone] Social History Tobacco Use Types Packs/Day Years Used Date Smoking Tobacco: Never Assessed Comments Unknown Sex and Gender Information Value Date Recorded Sex Assigned at Not on file Legal Sex Female 3:30 AM WATER TREATMENT TECHNICIAN Gender Identity Not on file Sexual Orientation Not on file documented as of this encounter Last Filed Vital Signs Vital Sign Reading Time Taken Comments Blood Pressure 134/88 06/01/2006 9:45 AM CDT Pulse - - Temperature - - Respiratory Rate - - Oxygen Saturation - - Inhaled Oxygen Concentration - - Weight 99.8 kg (220 lb) 06/01/2006 9:45 AM CDT Height - - Body Mass Index 36.61 10/14/2003 10:30 AM WATER TREATMENT TECHNICIAN documented in this encounter Plan of Treatment Not on file documented as of this encounter Visit Diagnoses Not on filedocumented in this encounter Care Teams Leadership Program Internship Relationship Specialty Start Date End Date Smith Islas MD [address] [place] [phone] PCP - General 10/22/03 07/11/15 documented as of this encounter
--- OUTSIDE RECORDS SUMMARY | 2024-12-17 08:54 | XMS_ITS | Encounter Summary ---
Author Organization [facility] Address [address] [place] [address] Care Team Providers Care Customer Experience Analyst Name Role Phone Smith Islas MD Primary Care Provider [phone] Encounter Details Date Type Department Care Team (Latest Contact Info) Description 02/26/2007 Outpatient Historical [facility] Internal Medicine [address] [address] Smith Islas MD [address] [place] [phone] DM w/o Complication Type II (CMS/HCC) (Primary Dx) Social History Tobacco Use Types Packs/Day Years Used Date Smoking Tobacco: Never Assessed Comments Unknown Sex and Gender Information Value Date Recorded Sex Assigned at Not on file Legal Sex Female 3:30 AM ETL INFORMATICA DEVELOPER Gender Identity Not on file Sexual Orientation Not on file documented as of this encounter Plan of Treatment Not on file documented as of this encounter Procedures Procedure Name Priority Date/Time Associated Diagnosis Comments TSH Routine 02/26/2007 8:45 AM CDT HEMOGLOBIN A1C Routine 02/26/2007 8:45 AM CDT LIPID PANEL Routine 02/26/2007 8:45 AM CDT COMPREHENSIVE METABOLIC PANEL Routine 02/26/2007 8:45 AM CDT documented in this encounter Results * TSH (02/26/2007 8:45 AM CDT) TSH 2.59 0.27 - 4.20 uU/mL INTERFACE SYSTEM 02/26/2007 8:45 AM CDT Smith Islas MD CHEMISTRY ORDERABLES Edited Performing Organization Address [facility] Phone Number INTERFACE SYSTEM Refer to clinic/hospital department * (ABNORMAL) LIPID PANEL (02/26/2007 8:45 AM CDT) CHOLESTEROL 163 100 - 199 mg/dL INTERFACE SYSTEM TRIGLYCERIDE 87 10 - 149 mg/dL INTERFACE SYSTEM HDL 62(H) 40 - 59 mg/dL INTERFACE SYSTEM CHOL/HDL RATIO 2.6 2.0 - 5.0 INTER FACE SYSTEM LDL CALCULATED 84 <=99 mg/dL INTERFACE SYSTEM LIPID PANEL COMMENT See Below INTERFACE SYSTEM Comment: The adult ATP and pediatric NCEP classifications for lipids are available on the [facility] Intranet at: http://franciscan children'sActivate Networkset/[employer]/sjmmclab.nsf Select: Lab Policies and Procedures Select: Reference Ranges - Lipids 02/26/2007 8:45 AM CDT Smith Islas MD CHEMISTRY ORDERABLES Edited Performing Organization Address [facility] Phone Number INTERFACE SYSTEM Refer to clinic/hospital department * (ABNORMAL) HEMOGLOBIN A1C (02/26/2007 8:45 AM CDT) HEMOGLOBIN A1C 6.7(H) 4.1 - 6.1 % of Hgb INTERFACE SYSTEM GLUCOSE, MEAN BLOOD 161 mg/dL INTERFACE SYSTEM 02/26/2007 8:45 AM CDT Smith Islas MD CHEMISTRY ORDERABLES Edited Performing Organization Address [facility] Phone Number INTERFACE SYSTEM Refer to clinic/hospital department * (ABNORMAL) COMPREHENSIVE METABOLIC PANEL (02/26/2007 8:45 AM CDT) GLUCOSE 114(H) 65 - 99 mg/dL INTERFACE SYSTEM CREATININE 0.56 0.51 - 0.95 mg/dL INTERFACE SYSTEM CALCIUM 9.5 8.4 - 10.2 mg/dL INTERFACE SYSTEM ALKALINE PHOSPHATASE 116(H) 35 - 104 U/L INTERFACE SYSTEM AST 18 12 - 32 U/L INTERFACE SYSTEM ALT 24 0 - 31 U/L INTERFACE SYSTEM TOTAL PROTEIN 7.6 6.3 - 8.6 g/dL INTERFACE SYSTEM ALBUMIN 4.4 3.4 - 4.8 g/dL INTERFACE SYSTEM BILIRUBIN TOTAL 0.4 0.2 - 1.0 mg/dL INTERFACE SYSTEM BUN 13 6 - 20 mg/dL INTERFACE SYSTEM SODIUM 140 135 - 145 mmol/L INTERFACE SYSTEM POTASSIUM 4.3 3.5 - 4.9 mmol/L INTERFACE SYSTEM CHLORIDE 104 96 - 108 mmol/L INTERFACE SYSTEM CO2 26 22 - 30 mmol/L INTERFACE SYSTEM GFR, >60 >=60 mL/min/1. 7 sq meter INTERFACE SYSTEM GFR >60 >=60 mL/min/1. 7 sq meter INTERFACE SYSTEM Comment: Estimated GFR rate interpretative information for both Americans and non- Americans is available on the [facility] Intranet at: http://franciscan children'sProcurics/[employer]/sjmmclab.nsf Select: Lab Policies and Procedures Select: Reference Ranges - GFR 02/26/2007 8:45 AM CDT us Smith Islas MD CHEMISTRY ORDERABLES Edited INTERFACE SYSTEM Refer to clinic/hospital department documented in this encounter Visit Diagnoses Diagnosis Type II or unspecified type diabetes mellitus without mention of complication, not stated as uncontrolled (CMS/[facility])- Primary Type II or unspecified type diabetes mellitus without mention of complication, not stated as uncontrolled documented in this encounter Care Teams Customer Experience Analyst Relationship Specialty Start Date End Date Smith Islas MD [address] [place] [phone] PCP - General 10/22/03 07/11/15 documented as of this encounter
--- OUTSIDE RECORDS SUMMARY | 2024-12-17 08:54 | XMS_ITS | Encounter Summary ---
Author Organization [facility] Address [address] [place] [address] Care Team Providers Care Light Truck Driver Name Role Phone Smith Islas MD Primary Care Provider [phone] Encounter Details Date Type Department Care Team (Late st Contact Info) Description 09/11/2006 Outpatient Historical [facility] Internal Medicine [address] [address] Smith Islas MD [address] [place] [phone] Social History Tobacco Use Types Packs/Day Years Used Date Smoking Tobacco: Never Assessed Comments Unknown Sex and Gender Information Value Date Recorded Sex Assigned at Not on file Legal Sex Female 3:30 AM REHAB DIRECTOR Gender Identity Not on file Sexual Orientation Not on file documented as of this encounter Last Filed Vital Signs Vital Sign Reading Time Taken Comments Blood Pressure 130/80 09/11/2006 10:15 AM REHAB DIRECTOR Pulse - - Temperature 36.8 C (98.3 F) 09/11/2006 10:15 AM REHAB DIRECTOR Respiratory Rate - - Oxygen Saturation - - Inhaled Oxygen Concentration - - Weight 98.9 kg (218 lb) 09/11/2006 10:15 AM REHAB DIRECTOR Height - - Body Mass Index 36.28 10/14/2003 10:30 AM REHAB DIRECTOR documented in this encounter Plan of Treatment Not on file documented as of this encounter Visit Diagnoses Not on filedocumented in this encounter Care Teams Light Truck Driver Relationship Specialty Start Date End Date Smith Islas MD [address] [place] [phone] PCP - General 10/22/03 07/11/15 documented as of this encounter
--- OUTSIDE RECORDS SUMMARY | 2024-12-17 08:54 | XMS_ITS | Encounter Summary ---
Author Organization [facility] Address [address] [place] [address] Care Team Providers Care Experienced Truck Driver Name Role Phone Smith Islas MD Primary Care Provider [phone] Encounter Details Date Type Department Care Team (Late st Contact Info) Description 11/03/2005 Outpatient [facility] Internal Medicine [address] [address] Smith Islas MD [address] [place] [phone] Social History Tobacco Use Types Packs/Day Years Used Date Smoking Tobacco: Never Assessed Comments Unknown Sex and Gender Information Value Date Recorded Sex Assigned at Not on file Legal Sex Female 3:30 AM NEWS DIRECTOR Gender Identity Not on file Sexual Orientation Not on file documented as of this encounter Plan of Treatment Not on file documented as of this encounter Visit Diagnoses Not on filedocumented in this encounter Care Teams Experienced Truck Driver Relationship Specialty Start Date End Date Smith Islas MD [address] [place] [address] [address] [place] [phone] PCP - General 10/22/03 07/11/15 documented as of this encounter
--- OUTSIDE RECORDS SUMMARY | 2024-12-17 08:54 | XMS_ITS | Encounter Summary ---
Author Organization [facility] Address [address] [place] [address] Care Team Providers Care Biology Manager Name Role Phone Becka Escobedo MD Primary Care Provider [phone] Encounter Details Date Type Department Care Team (Late st Contact Info) Description 03/01/2007 Orders Only [facility] Internal Medicine [address] [address] Becka Escobedo MD [address] [place] [phone] Social History Tobacco Use Types Packs/Day Years Used Date Smoking Tobacco: Never Assessed Comments Unknown Sex and Gender Information Value Date Recorded Sex Assigned at Not on file Legal Sex Female 3:30 AM GRAVITY PROSPECTING SUPERVISOR Gender Identity Not on file Sexual Orientation Not on file documented as of this encounter Progress Notes * Becka Escobedo MD - 02/12/2008 3:12 PM CDT CENTRAL TEST SCHEDULING DATE: MAR 01, 2007 Note created by: Rossi Herrera E 01:04 p Patient Name : MORRIS STOKES Address: [address] [address] D.O.B: 1945 SSN: [id number] Parent/Guardian if applicable: Patient Insurance: [employer] ID#: [id number] Group#: ORDER(S) #: [id number] mamm PLEASE SCHEDULE THE APPOINTMENT AT THE FOLLOWING LOCATION: [facility] [phone]. SPECIAL SCHEDULING INSTRUCTIONS: pt to scheduled ORDERING PHYSICIAN: BECKA ESCOBEDO MD OFFICE FACTORY PROCESS WORKERS & PHONE: Rossi Herrera E * Becka Escobedo MD - 02/12/2008 3:12 PM CDT WEIGHT: 213lbs BLOOD PRESSURE: 118/74 Right Arm Sitting NURSE NAME: Madison ElliottEmily CHIEF COMPLAINT Patient here for follow up diabetes. 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 250.00-DM II CONTROLLED The diabetes remains stable. Patient is somewhat compliant with diet. 272.4-HYPERLIPIDEMIA The patient`s most recent labs reviewed. The patient is tolerating the medications, not compliant with medication and misses doses occassionally. 311-DEPRESSION has cut med to 25--some inc stress recently ROS: ENDOCRINE: No heat or cold intolerance, [...] no significant smoking history. 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 Kidneys not palpable. PSYCHIATRIC: Judgment appropriate. Oriented. Normal memory. Mood and affect appropriate. 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 disucssed, recheck mammogram LAB ORDERS: Order number: [id number] Test Ordered: MAMMOGRAM BI-LATERAL (2 VIEWS) 244.9-HYPOTHYROIDISM cont med stable 250.00-DM II CONTROLLED discussed, cont diet and inc exercise. LAB ORDERS: 3mo Order number: [id number] Test Ordered: COMPREHENSIVE METABOLIC PANEL & GFR 1112 Order number: [id number] Test Ordered: HEMOGLOBIN A1C 1814 Order number: [id number] Test Ordered: LIPID PANEL 1078 Order number: [id number] Test Ordered: TSH 1720 272.4-HYPERLIPIDEMIA discussed, cont med--try take daily 311-DEPRESSION discussed, cont med--reassess RETURN VISIT : Patient instructed to return in 3 months. Electronically Signed by: Becka Escobedo MD on Thursday, March 01, 2007 documented in this encounter Plan of Treatment Not on file documented as of this encounter Visit Diagnoses Not on filedocumented in this encounter Care Teams Biology Manager Relationship Specialty Start Date End Date Becka Escobedo MD [address] [place] [phone] PCP - General 10/22/03 07/11/15 documented as of this encounter
--- OUTSIDE RECORDS SUMMARY | 2024-12-17 08:54 | XMS_ITS | Encounter Summary ---
Author Organization [facility] Address [address] [place] [address] Care Team Providers Care Marketing Specialist Name Role Phone Smith Islas MD Primary Care Provider [phone] Encounter Details Date Type Department Care Team (Late st Contact Info) Description 10/10/2006 Outpatient Historical [facility] Internal Medicine [address] [address] Smith Islas MD [address] [place] [phone] Social History Tobacco Use Types Packs/Day Years Used Date Smoking Tobacco: Never Assessed Comments Unknown Sex and Gender Information Value Date Recorded Sex Assigned at Not on file Legal Sex Female 3:30 AM ENGRAVER TIRE MOLD Gender Identity Not on file Sexual Orientation Not on file documented as of this encounter Last Filed Vital Signs Vital Sign Reading Time Taken Comments Blood Pressure 124/80 10/10/2006 11:00 AM ENGRAVER TIRE MOLD Pulse - - Temperature 36.5 C (97.7 F) 10/10/2006 11:00 AM ENGRAVER TIRE MOLD Respiratory Rate - - Oxygen Saturation - - Inhaled Oxygen Concentration - - Weight 98.9 kg (218 lb) 10/10/2006 11:00 AM ENGRAVER TIRE MOLD Height - - Body Mass Index 36.28 10/14/2003 10:30 AM ENGRAVER TIRE MOLD documented in this encounter Plan of Treatment Not on file documented as of this encounter Visit Diagnoses Not on filedocumented in this encounter Care Teams Marketing Specialist Relationship Specialty Start Date End Date Smith Islas MD [address] [place] [phone] PCP - General 10/22/03 07/11/15 documented as of this encounter
--- OUTSIDE RECORDS SUMMARY | 2024-12-17 08:54 | XMS_ITS | Encounter Summary ---
Author Organization [facility] Address [address] [place] [address] Care Team Providers Care Bleaching Machine Operator Name Role Phone Smith Islas MD Primary Care Provider [phone] Encounter Details Date Type Department Care Team (Late st Contact Info) Description 11/30/2006 Outpatient Historical [facility] Internal Medicine [address] [address] Smith Islas MD [address] [place] [phone] Social History Tobacco Use Types Packs/Day Years Used Date Smoking Tobacco: Never Assessed Comments Unknown Sex and Gender Information Value Date Recorded Sex Assigned at Not on file Legal Sex Female 3:30 AM FUNERAL SALES MANAGER Gender Identity Not on file Sexual Orientation Not on file documented as of this encounter Last Filed Vital Signs Vital Sign Reading Time Taken Comments Blood Pressure 120/70 11/30/2006 9:30 AM FUNERAL SALES MANAGER Pulse - - Temperature - - Respiratory Rate - - Oxygen Saturation - - Inhaled Oxygen Concentration - - Weight 98.9 kg (218 lb) 11/30/2006 9:30 AM FUNERAL SALES MANAGER Height - - Body Mass Index 36.28 10/14/2003 10:30 AM FUNERAL SALES MANAGER documented in this encounter Plan of Treatment Not on file documented as of this encounter Visit Diagnoses Not on filedocumented in this encounter Care Teams Bleaching Machine Operator Relationship Specialty Start Date End Date Smith Islas MD [address] [place] [phone] PCP - General 10/22/03 07/11/15 documented as of this encounter
--- OUTSIDE RECORDS SUMMARY | 2024-12-17 08:54 | XMS_ITS | Encounter Summary ---
Author Organization [facility] Address [address] [place] [address] Care Team Providers Care Mail Messenger Contractor Name Role Phone Smith Islas MD Primary Care Provider [phone] Encounter Details Date Type Department Care Team (Late st Contact Info) Description 11/03/2005 Outpatient [facility] Internal Medicine [address] [address] Smith Islas MD [address] [place] [phone] Social History Tobacco Use Types Packs/Day Years Used Date Smoking Tobacco: Never Assessed Comments Unknown Sex and Gender Information Value Date Recorded Sex Assigned at Not on file Legal Sex Female 3:30 AM BUCKET TURNER Gender Identity Not on file Sexual Orientation Not on file documented as of this encounter Plan of Treatment Not on file documented as of this encounter Visit Diagnoses Not on filedocumented in this encounter Care Teams Mail Messenger Contractor Relationship Specialty Start Date End Date Smith Islas MD [address] [place] [address] [address] [place] [phone] PCP - General 10/22/03 07/11/15 documented as of this encounter
--- OUTSIDE RECORDS SUMMARY | 2024-12-17 08:54 | XMS_ITS | Encounter Summary ---
Author Organization [facility] Address [address] [place] [address] Care Team Providers Care Planning Official Name Role Phone Smith Islas MD Primary Care Provider [phone] Encounter Details Date Type Department Care Team (Late st Contact Info) Description 11/21/2005 Outpatient Historical [facility] Internal Medicine [address] [address] Smith Islas MD [address] [place] [address] Social History Tobacco Use Types Packs/Day Years Used Date Smoking Tobacco: Never Assessed Comments Unknown Sex and Gender Information Value Date Recorded Sex Assigned at Not on file Legal Sex Female 3:30 AM CLINICAL LEADER Gender Identity Not on file Sexual Orientation Not on file documented as of this encounter Last Filed Vital Signs Vital Sign Reading Time Taken Comments Blood Pressure 130/80 11/21/2005 9:45 AM CLINICAL LEADER Pulse - - Temperature 36.6 C (97.8 F) 11/21/2005 9:45 AM CLINICAL LEADER Respiratory Rate - - Oxygen Saturation - - Inhaled Oxygen Concentration - - Weight 104.3 kg (230 lb) 11/21/2005 9:45 AM CLINICAL LEADER Height - - Body Mass Index 38.27 10/14/2003 10:30 AM CLINICAL LEADER documented in this encounter Plan of Treatment Not on file documented as of this encounter Visit Diagnoses Not on filedocumented in this encounter Care Teams Planning Official Relationship Specialty Start Date End Date Smith Islas MD [address] [place] [phone] PCP - General 10/22/03 07/11/15 documented as of this encounter
--- OUTSIDE RECORDS SUMMARY | 2024-12-17 08:54 | XMS_ITS | Encounter Summary ---
Author Organization [facility] Address [address] [place] [address] Care Team Providers Care Deck Mate Name Role Phone Smith Islas MD Primary Care Provider [phone] Encounter Details Date Type Department Care Team (Late st Contact Info) Description 04/09/2007 Outpatient Historical [facility] Internal Medicine [address] [address] Smith Islas MD [address] [place] [phone] Social History Tobacco Use Types Packs/Day Years Used Date Smoking Tobacco: Never Assessed Comments Unknown Sex and Gender Information Value Date Recorded Sex Assigned at Not on file Legal Sex Female 3:30 AM SEAFOOD TECHNOLOGY SPECIALIST Gender Identity Not on file Sexual Orientation Not on file documented as of this encounter Last Filed Vital Signs Vital Sign Reading Time Taken Comments Blood Pressure 124/74 04/09/2007 10:00 AM CDT Pulse - - Temperature - - Respiratory Rate - - Oxygen Saturation - - Inhaled Oxygen Concentration - - Weight 95.3 kg (210 lb) 04/09/2007 10:00 AM CDT Height - - Body Mass Index 34.95 10/14/2003 10:30 AM SEAFOOD TECHNOLOGY SPECIALIST documented in this encounter Plan of Treatment Not on file documented as of this encounter Visit Diagnoses Not on filedocumented in this encounter Care Teams Deck Mate Relationship Specialty Start Date End Date Smith Islas MD [address] [place] [phone] PCP - General 10/22/03 07/11/15 documented as of this encounter
--- OUTSIDE RECORDS SUMMARY | 2024-12-17 08:54 | XMS_ITS | Encounter Summary ---
Author Organization [facility] Address [address] [place] [address] Care Team Providers Care Mixing House Operator Name Role Phone Smith Islas MD Primary Care Provider [phone] Encounter Details Date Type Department Care Team (Latest Contact Info) Description 05/17/2009 Outpatient Historical [facility] DRAW SITE Smith Islas MD [address] [address] DM w/o Complication Type II (CMS/HCC) Social History Tobacco Use Types Packs/Day Years Used Date Smoking Tobacco: Former Cigarettes Q uit: 06/26/1988 Alcohol Use Standard Drinks/Week Comments No 0 (1 standard drink = 0.6 oz pur e alcohol) Comments No Sex and Gender Information Value Date Recorded Sex Assigned at Not on file Legal Sex Female 3:30 AM LIVESTOCK HANDLER Gender Identity Not on file Sexual Orientation [...] uncontrolled documented in this encounter Care Teams Mixing House Operator Relationship Specialty Start Date End Date Smith Islas MD 637 [facility] [address] [place] [address] PCP - General 10/22/03 07/11/15 documented as of this encounter
--- OUTSIDE RECORDS SUMMARY | 2024-12-17 08:54 | XMS_ITS | Encounter Summary ---
Author Organization [facility] Address [address] [place] [address] Care Team Providers Care Printed Circuit Boards Plasma Etcher Name Role Phone Smith Islas MD Primary Care Provider [phone] Encounter Details Date Type Department Care Team (Late st Contact Info) Description 04/09/2006 Outpatient Historical [facility] Internal Medicine [address] [address] Smith Islas MD [address] [place] [phone] Social History Tobacco Use Types Packs/Day Years Used Date Smoking Tobacco: Never Assessed Comments Unknown Sex and Gender Information Value Date Recorded Sex Assigned at Not on file Legal Sex Female 3:30 AM TERRA COTTA SETTER Gender Identity Not on file Sexual Orientation Not on file documented as of this encounter Last Filed Vital Signs Vital Sign Reading Time Taken Comments Blood Pressure 140/90 04/09/2006 4:00 PM CDT Pulse - - Temperature - - Respiratory Rate - - Oxygen Saturation - - Inhaled Oxygen Concentration - - Weight 101.6 kg (224 lb) 04/09/2006 4:00 PM CDT Height - - Body Mass Index 37.28 10/14/2003 10:30 AM TERRA COTTA SETTER documented in this encounter Plan of Treatment Not on file documented as of this encounter Visit Diagnoses Not on filedocumented in this encounter Care Teams Printed Circuit Boards Plasma Etcher Relationship Specialty Start Date End Date Smith Islas MD [address] [place] [phone] PCP - General 10/22/03 07/11/15 documented as of this encounter
--- OUTSIDE RECORDS SUMMARY | 2024-12-17 08:54 | XMS_ITS | Clinical Summary ---
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 Gender Identity Not on file Sexual Orientation Not on file Plan of Treatment Health Maintenance Due Date Last Done Comments DEXA Bone Density 1945 Hepatitis C Virus (HCV) Screening 1945 Zoster Immunization (1 of 2) 1994 Respiratory Syncytial Virus (RSV) Immunization (Adult) (1 - 1-dose 75+ series) 12/15/2019 Pneumococcal Immunization (50+ years) (2 of 2 - PCV) 08/16/2021 08/16/2020 Influenza Immunization (#1) 05/25/202407/25, 06/18/2017, 06/16/2014, Additional history exists SARS-COV-2 Immunization ( season) 2024 12/15/2020, 11/17/2020 DTaP/Tdap/Td Immunization Discontinued 06/16/2014 TdaP Immunization Completed 06/16/2014 Hepatitis B Immunization Aged Out No longer eligible based on patient's age to complete this topic Meningococcal Immunization (ACWY) Aged Out No longer eligible based on patient's age to complete this topic Rotavirus Immunization Aged Out No lo nger eligible based on patient's age to complete this topic Care Teams In Flight Refueling Operator Relationship Specialty Start Date End Date Provider, Not On File [place] PCP - General 07/20/15
--- OUTSIDE RECORDS SUMMARY | 2024-12-17 08:54 | XMS_ITS | Encounter Summary ---
Author Organization [facility] Address [address] [place] [address] Care Team Providers Care Crack Off Person Name Role Phone Smith Islas MD Primary Care Provider [phone] Encounter Details Date Type Department Care Team (Late st Contact Info) Description 02/10/2009 Outpatient Historical [facility] Smith Islas MD [address] [facility] [address] [place] [address] Cough Social History Tobacco Use Types Packs/Day Years Used Date Smoking Tobacco: Former Cigarettes Q uit: 06/26/1988 Alcohol Use Standard Drinks/Week Comments No 0 (1 standard drink = 0.6 oz pur e alcohol) Comments No Sex and Gender Information Value Date Recorded Sex Assigned at Not on file 

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
--- OUTSIDE RECORDS SUMMARY | 2024-12-17 08:55 | XMS_ITS | Encounter Summary ---
Author Organization [employer] Address 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
--- OUTSIDE RECORDS SUMMARY | 2024-12-17 08:55 | XMS_ITS | Encounter Summary ---
Author Organization [facility] [place] Address [address] [place] [address] Care Team Providers Care Engine Buildup Mechanic Name Role Phone Smith Islas MD Primary Care Provider [phone] Encounter Details Date Type Department Care Team (Late st Contact Info) Description 05/31/[address] [facility] Internal Medicine [address] [phone] Smith Islas MD [address] [place] [phone] Social History Tobacco Use Types Packs/Day Years Used Date Smoking Tobacco: Never Assessed Comments Unknown Sex and Gender Information Value Date Recorded Sex Assigned at Not on file Legal Sex Female 3:30 AM [employer]K SHARP[employer] Gender Identity Not on file Sexual Orientation Not on file documented as of this encounter Last Filed Vital Signs Vital Sign Reading Time Taken Comments Blood Pressure 124/70 05/31/2007 9:45 AM CDT Pulse - - Temperature - - Respiratory Rate - - Oxygen Saturation - - Inhaled Oxygen Concentration - - Weight - - Height - - Body Mass Index - - documented in this encounter Plan of Treatment Not on file documented as of this encounter Visit Diagnoses Not on filedocumented in this encounter Care Teams Engine Buildup Mechanic Relationship Specialty Start Date End Date Smith Islas MD [address] [place] [phone] PCP - General 10/22/03 07/11/15 documented as of this encounter
--- OUTSIDE RECORDS SUMMARY | 2024-12-17 08:55 | XMS_ITS | Continuity of Care Document ---
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 Name Role Phone Ronald BALDWIN, Huyen Unavailable Unavailable Allergies, Adverse Reactions, Alerts Substance Reaction Status Criticality TAPE, PERMEABLE ADHESIVE Active No Information latex Active No Information Medications Medication Instructions Dosage Effective Dates (start - stop) Status Comments duloxetine 60 mg capsule,delayed release take 2 capsule by oral route every day 120 MG - Active Januvia 50 mg tablet take 2 tablet by oral route every day 100 MG - Active aspirin 81 mg tablet,delayed release take 1 tablet by oral route every day 81 MG - Active buspirone 5 mg tablet take 1 tablet by oral route 3 times every day 5 MG - Active Flonase Sensimist 27.5 mcg/actuation nasal spray,suspension use when needed - Active losartan 50 mg tablet take 1 tablet by oral route every day 50 MG - Active mupirocin 2 % topical ointment apply by topical route 3 times every day a small amount to the affected area 0.00 - Active Mucinex Fast-Max Gquo-Rwo-Gjzx Throat 5 mg-10 mg-325 mg-200 mg capsule take when needed - Active atorvastatin 80 mg tablet take 1 tablet by oral route every day 80 MG - Active multivitamin tablet take 1 tablet by oral route every day with food - Active carvedilol 6.25 mg tablet take 1 tablet by oral route 2 times every day with food 6.25 MG - Active Tirosint 125 mcg capsule take 1 capsule by oral route every day 125 MCG - Active Humira 40 mg/0.8 mL subcutaneous syringe kit inject 0.8 milliliter by subcutaneous route every 2 weeks in the abdomen or thigh (rotate sites) 40 MG - No Longer Active sertraline 100 mg tablet take 1 tablet by oral route every day 100 MG - No Longer Active Procedures Procedure Date Fundus Photography W/ Report Eye Exam & Treatment Fundus Photography W/ Report Eye Exam & Treatment Fundus Photography W/ Report No Charge GDX Retina Eye Exam & Treatment Fundus Photography W/ Report Office/outpatient Visit, Est Fundus Photography W/ Report Eye Exam & Treatment Fundus Photography W/ Report Eye Exam & Treatment Eye Exam & Treatment Fundus Photography W/ Report Fundus Photography W/ Report Office/outpatient Visit, Est Refraction Fundus Photography W/ Report Eye Exam & Treatment Fundus Photography W/ Report Office/outpatient Visit, Est Eye Exam & Treatment Fundus Photography W/ Report Post-op Follow-up Visit After Cataract Laser Surgery No Charge Refraction Office/outpatient Visit, Est Fundus Photography W/ Report Post-op Follow-up Visit Post-op Follow-up Visit Remove Cataract, Insert Lens Eye Exam & Treatment No Charge Refraction IOLMaster IOLMaster Fundus Photography W/ Report Post-op Follow-up Visit After Cataract Laser Surgery Eye Exam & Treatment Eye Exam & Treatment Eye Exam & Treatment Fundus Photography W/ Report Eye Exam & Treatment Remove Foreign Body From Eye Advance Directives Directive Yes / No Effective Date File Name No Information Encounters Encounter Description Practice Location Reason(s) For Visit Diagnoses Date Provider Providers Copied on Encounter [facility], [facility] [address], [place], [place], [address], tel:[phone] SEC Colton Rodriguez Complete Exam (chief complaint) Type 2 diabetes mellitus without complication sVitreous degeneration , left eyePresence of intraocular lens 4 Ronald OD Huyen. [facility] [address], [address], [place], [place], [address], [place]. tel:[phone] Mainor Iqbal MD.Rand burgos Provider: Jose Angel Ponce, [email or web address], [place], [address] . tel:[phone] [facility], [address], [place], [place], [address], [place] tel:[phone] SEC Dennys JOSEPH Diabetic eye exam (chief complaint) Type 2 diabetes mellitus without complication sPresence of intraocular lens 3 Maritza Walter. [facility] [address], [address], [place], [place], [address], [place]. tel:[phone] Mainor Iqbal MD.Referri aubrey Provider: Jose Angel Ponce, [email or web address], [place], [address] . tel:[phone] [facility], [facility] [address], [place], [place], [address], [place] tel:[phone] SEC Briseida Godfrey Complete Exam (chief complaint) Type 2 diabetes mellitus without complication sPresence of intraocular lensDrusen (degenerativ e) of macula, bilateral Nov- 2 Maritza Walter. [facility] [address], [address], [place], [place], [address], [place]. tel:[phone] Mainor Iqbal MD.Referri ng Provider: Jose Angel Ponce, [facility] [address], [place], [address] . tel:[phone] Office/outpa tient Visit, Est [facility], [address], [place], [place], [address], [place] tel:[phone] SEC Briseida N Lindbergh Complete Exam (chief complaint) Type 2 diabetes mellitus without complication sPresence of intraocular lens Mar-1 5 1 Maritza Jose Angel. [facility] [address], [address], [place], [place], [address], [place]. tel:[phone] Specialist : Mainor Iqbal MD, [address] [facility] [address] [place], [address]. tel:[phone] erring Provider: Jose Angel Ponce, [facility] [address], [place], [address] . tel:[phone] [facility], [facility] [address] [facility] [address], [place], [place], [address], [place] tel:[phone] SEC Eunice N Lindbergh Complete Exam (chief complaint) Type 2 diabetes mellitus without complication sPresence of intraocular lensEpiphora due to insufficient drainage, bilateral Sep-1 4-202 0 Maritza Jose Angel. [facility] [address], [address], [place], [place], [address], [place]. tel:[phone] Mainor Iqbal MD.Referri ng Provider: Jenifer Funk MD, [address] [facility] [address], [place], [address]. tel:[phone] [facility], [facility] [address], [place], [place], [address], [place] tel:[phone] SEC Briseida N Lindbergh diabetic eye exam (chief complaint) Type 2 diabetes mellitus without complication sPresence of intraocular lens Sep-0 9-201 9 Ringoes Jose Angel. [facility] [address] [employer], [address], [place], [place], [address], [place]. tel:[phone] Mainor Iqbal MD.Referri ng Provider: Jenifer Funk MD, [address] [facility] [address], [place], [address]. tel:[phone] [facility], [address] [place] [address] [address], [place], [place], [address], [place] tel:[phone] SEC Eunice N Lindbergh No Information 9 Maritza Jose Angel. [address], [address], [place], [place], [address], [place]. tel:[phone] [facility], [address], [place], [place], [address], [place] tel:[phone] SEC Briseida N Lindbergh Complete Exam (chief complaint) Type 2 diabetes mellitus without complication sPresence of intraocular lens Maritza Jose Angel. [address] [employer] [facility], [address], [place], [place], [address], [place]. tel:[phone] Specialist : Mainor Iqbal MD, [address] [facility] [address] [address] [place], [address]. tel:[phone] erring Provider: Jenifer Funk MD, [address] [facility] [address], [place], [address]. tel:[phone] [facility], [address] [place] [address] [address], [place], [place], [address], [place] tel:[phone] SEC Eunice N Lindbergh No Information 8 Ringoes Jose Angel. [address] [place], [place] [address]cre[facility] [employer] [facility], [address], [place], [place], [address], [place]. tel:[phone] Specialist : Mainor Iqbal MD, [address] [facility] [address] [address] [place], [address]. tel:[phone] Office/outpa tient Visit, Est [facility], [address], [place], [place], [address], [place] tel:[phone] SEC Eunice N Lindbergh diabetic eye exam (chief complaint) Type 2 diabetes mellitus without complication sLong term (current) use of oral hypoglycemic drugsPresenc e of intraocular lensDrusen (degenerativ e) of macula, bilateral 7 Ringoes Jose Angel. [address], [address], [place], [place], [address], [place]. tel:[phone] Referring Provider: Jenifer Funk MD, [address] [facility] [address], [place], [address]. tel:[phone] [facility], [address], [place], [place], [address], [place] tel:[phone] SEC Briseida N Lindbergh No Information 7 Maritza Jose Angel. [address], [address], [place], [place], [address], [place]. tel:[phone] [facility], [address], [place], [place], [address], [place] tel:[phone] SEC Briseida N Lindbergh Diabetic eye exam (chief complaint) No Information 6 [place] Jose Angel. [address], [address], [place], [place], [address], [place]. tel:[phone] Referring Provider: Jenifer Funk MD, [address] [facility] [address], [place], [address]. tel:[phone] [facility], [address], [place], [place], [address], [place] tel:[phone] SEC Eunice N Lindbergh No Information 6 Ring[place] Jose Angel. [address], [address], [place], [place], [address], [place]. tel:[phone] Office/outpa tient Visit, Est [facility], [address], [place], [place], [address], [place] tel:[phone] SEC Eunice N Lindbergh diabetic exam (chief complaint) No Information 5 Ringoes Jose Angel. [address], [address], [place], [place], [address], [place]. tel:[phone] Referring Provider: Jenifer Funk MD, [address] [facility] [address], [place], [address]. tel:[phone] [facility], [address] [place] [address] [address], [place], [place], [address], [place] tel:[phone] SEC Eunice N Lindbergh Complete Eye Exam (chief complaint) No Information Nov- 5 Ringoes Jose Angel. [facility] [address], [address], [place], [place], [address], [place]. tel:[phone] Referring Provider: Jenifer Funk MD, [address] [facility] [address], [place], [address]. tel:[phone] [facility], [address], [place], [place], [address], [place] tel:[phone] SEC Briseida N Lindbergh blurry vision (chief complaint) No Information 4 Sepideh Huerta. [address] [facility] [address], [address], [place], [place], [address], [place]. tel:[phone] [facility], [address], [place], [place], [address], [place] tel:[phone] SEC Briseida N Lindbergh blurry vision (chief complaint) No Information Nov-2 4 Ring[place] Jose Angel. [address], [address], [place], [place], [address], [place]. tel:[phone] Referring Provider: Smith Islas MD M, [address] [facility] [address], [place], [address]. tel:[phone] Office/outpa tient Visit, Est [facility], [address], [place], [place], [address], [place] tel:[phone] SEC Briseida N Lindbergh 6 Month IOL Check (chief complaint) No Information Nov- 4 Maritza Walter. [address], [address], [place], [place], [address], [place]. tel:[phone] Referring Provider: Jose Angel Ponce, [email or web address], [place], [address] . tel:[phone] [facility], [address], [place], [place], [address], [place] tel:[phone] SEC Eunice N Lindbergh 2 week post op (chief complaint) No Information Sep- 3 Maritza aWlter. [address], [address], [place], [place], [address], [place]. tel:[phone] Referring Provider: Jose Angel Ponce, [facility] [address], [place], [address] . tel:[phone] [facility], [address], [place], [place], [address], [place] tel:[phone] SEC Eunice N Lindbergh eyes doing well, without complaint. (chief complaint) No Information Sep-0 3 Sepideh Huerta. [address] [facility] [address] [facility] [address], [address], [place], [place], [address], [place]. tel:[phone] Referring Provider: Jose Angel Ponce, [facility] [address], [place], [address] . tel:[phone] [facility], [address], [place], [place], [address], [place] tel:[phone] [facility] No Information May-0 3 Maritza Jose Angel. [facility] [address], [address], [place], [place], [address], . tel:[phone] Referring Provider: Jose Angel Ponce, [facility] [address], [place], [address] . tel:[phone] [facility], [facility] [address], [place], [place], [address], tel:[phone] SEC Briseida N Lindbergh blurry vision (chief complaint) No Information Apr-0 3 Ringoes Jose Angel. [facility] [address], [address], [place], [place], [address], . tel:[phone] Referring Provider: Jose Angel Ponce, [facility] [address], [place], [address] . tel:[phone] [facility], [facility] [address], [place], [place], [address], [phone] SEC Eunice N Lindbergh 3 week post op (chief complaint) No Information 2 Maritza Walter. [facility] [address], [address], [place], [place], [address], [place]. tel:[phone] [facility], [facility] [address], [place], [place], [address], [place] tel:[phone] SEC Briseida N Lindbergh a comprehensive exam (chief complaint) No Information January-2 - 2 Maritza Jose Angel. [facility] [address], [address], [place], [place], [address], [place]. tel:[phone] [facility], [facility] [address], [place], [place], [address], [place] tel:[phone] SEC [place] Professional a comprehensive exam (chief complaint) No Information January-0 8-201 2 Maritza Walter. [address], [address], [place], [place], [address], . tel:[phone] [facility], [address], [place], [place], [address], tel:[phone] SEC Briseida N Lindbergh No Information 0 7-201 1 Maritza Walter. [facility] [address], [address], [place], [place], [address], . tel:[phone] [facility], [address], [place], [place], [address], tel:[phone] SEC Briseida N Lindbergh No Information 2 2-200 8 Ring[place] Jose Angel. [facility] [address], [address], [place], [place], [address], . tel:[phone] Referring Provider: Jose Angel Ponce, [facility] [address], [place], [address] . tel:[phone] [facility], [address], [place], [place], [address], tel:[phone] SEC Briseida N Lindbergh No Information 0 6-200 7 Maritza Walter. [facility] [address], [address], [place], [place], [address], . tel:[phone] [facility], [facility], [address], [place], [place], [address], tel:[phone] SEC Briseida N Lindbergh No Information 2 5-200 7 Maritza Walter. [facility] [address], [address], [place], [place], [address], . tel:[phone] Family History Family Member Type Diagnosis Age At Onset Mother and Grandmoth Problem (finding) Diabetes mellit Payers Payer name Insurance type Covered green party ID Authoriza tiraman(s) [employer] Mdcr Gold Adv Prime CI [id number] Social History Type Description Quantity Date Captured Comments Alcohol Use Details wine 1 glass socially Caffeine Use Details 2 cups per day Tobacco Use Status Ex-cigarette smoker 024 Smoking Status Former smoker Smoking Tobacco Use Details Cigarette: Age Stopped: 34 Cigarette: 1 Packs per day Sex Female Sexual Orientation Don't Know Gender Identity Female Chief Complaint And Reason For Visit From encounter dated '03/11/2024 13:30'. Complete Exam (chief complaint). Description: The 78 year old patient presents for evaluation of 1 year DM Complete Exam in the right eye and left eye. Pt is DMII and followed by PCP, last A1C was 7.4 in November. Pt does not check BS at home. Pt states vision seems stable. Pt states OS has a new large floater that she noticed in December. Pt denies any flashes, burst of floaters, or curtains in vision. Reason For Referral Reason For Referral No Information Plan Of Treatment Date Type Action Status Goal Tobacco cessation counseling completed Goal Tobacco cessation counseling completed Patient Education Learning About Vitreous Detachment completed Patient Education Type 2 Diabetes: Care I nstructions completed Patient Education Type 2 Diabetes: Care I nstructions completed Patient Education Learning About Your Eye s completed History Of Present Illness Encounter Date Complaint History Of Prese nt Illness Complete Exam The 78 year old patient presents for evaluation of 1 year DM Complete Exam in the right eye and left eye. Pt is DMII and followed by PCP, last A1C was 7.4 in November. Pt does not check BS at home. Pt states vision seems stable. Pt states OS has a new large floater that she noticed in December. Pt denies any flashes, burst of floaters, or curtains in vision. Diabetic eye exam The 76 year ol d patient presents for evaluation of Diabetic eye exam in the right eye and left eye. Patient states small print keeps getting smaller. Patient states VA seems stable OU. Patient is a Type 2 diab, BS checked yesterday @ 132, a1c 7.7, and PCP treats her diab. Complete Exam The 75 year old client presents for evaluation of Complete Exam in the right eye and left eye. Hx of PCIOL OU, YAG PC OU, and Mac Drusen OU. Pt reports VA OU is doing good with mild difficulties seeing small print and uses OTC readers for relief. Pt is NIDDM II with A1C unknown and BS unknown, followed by PCP. Pt does not use any gtts at this time. Pt denies pain or discomfort. Complete Exam The 74 year old female presents for evaluation of Complete Exam in the right eye and left eye. Hx of PCIOL OU, YAG PC OU, Pt is NIDDM with an A1c of 8.9 and last blood sugar this morning was 210, she says it has been running high and has an appt with her doctor. Dr. Bradley English is now her PCP and manages her Diabetes, he is not in system yet but I will send over form to add. Pt states the tearing has improved and her vision is clear and stable OU distance and near x 6 months with no complaints today. Pt does not use any eye drops at this time. Complete Exam The 74 year old female presents for evaluation of Complete Exam in the right eye and left eye. Hx of PCIOL OU, YAG PC OU, mac drusen. Pt is NIDDM with an A1c of 8.0. Pt states vision is clear and stable OU at distance and near x 1 yr. Pt states OU have been tearing after reading, worse at night when eyes are tired x 6 mos. diabetic eye exam The 73 year ol d female presents for a complete Type II diabetic eye exam ou. Patient is pseudo ou with yag caps ou. Patient doesn't check BS but last A1C was around 7. Patient wears OTC reading glasses and recently got stronger ones. Complete Exam The 72 year old female presents for evaluation of Complete Exam in the right eye and left eye. Hx PCIOL OU, YAG PC OU. NIDDM II. LBS 125, Last A1C 7.1. Pt states OU seem to be doing well. States she wears OTC readers as needed for NVA diabetic eye exam The 71 year ol d female presents for diabetic eye exam in the right and left eye. 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 Pt is followed by Dr. Arredondo, no longer sees Dr. Funk. Hx of degenerative drusen of macula OU, PCIOL OU, and YAG PC OU. Pt states her vision OU has been well. Pt states for the past 7 months she has noticed intermittent floaters OU, no flash of light, veil, or curtain over vision. Diabetic eye exam The 70 year ol d female presents for Diabetic eye exam in the right eye and left eye. Pt states no VA complaints. Pt would like Gls Rx because old gls are broken. Hx of PC IOL OU, Mac Drusen, and Yag PC OU. DM, A1c 7.7 2 mos ago. diabetic exam The 69 year old female presents for diabetic exam in the right eye and left eye. Patient states that vision is stable. Patient states that her eye are watery. Patient denies using any drops. Patient denies having any pain or discomfort. Patient reports she went to PCP 2 months ago for an eye infection and instilled medicated drops (type unknown) until subsided. Complete Eye Exam The 69 year ol d female presents for a Complete Eye Exam. Pt. states that her vision is stable form last year and just needs a general health check. Pt. states that hse has no pain or discomfort in the eye and she is not taking any kind of eye drops Functional Status Date Functional Assessmen t No Information Instructions Date Instruction Additional Infor roberto Impression/Plan Impression/Plan Impression/Plan Impression/Plan Impression/Plan Impression/Plan Impression/Plan Follow up - 1 yr complete exam Impression/Plan - Di abetes type II: no background retinopathy, no signs of neovascularization noted. Discussed ocular and systemic benefits of blood sugar control. Letter generated and sent to Dr. Arredondo. Return to the office in 1 yr or sooner if vision worsens. Type 2 diabetes vira itus without complications - Letter sent to PCP/Specialist Related to Type 2 diabetes mellitus without complications Follow up - 1 yr complete exam Impression/Plan - Di abetes type II: no background retinopathy, no signs of neovascularization noted. Discussed ocular and systemic benefits of blood sugar control. New spec Rx given to pt. Return to the office in 1 yr or sooner if vision worsens. Letter generated and sent to Dr. Funk Follow up - 6 months complete ex am Impression/Plan - Di abetes type II: no background retinopathy, no signs of neovascularization noted. Discussed ocular and systemic benefits of blood sugar control. Ok to use AT's as needed. Return to clinic sooner if vision worsens. Letter generated and sent to Dr. Funk. - OU: Discussed diag nosis in detail with patient. Will continue to observe condition and or symptoms. Call if VA worsens. Vitamins recommended. Letter generated and sent to Dr. Funk Related to See list of assessments above FOLLOW-UP SURGERY NO S OD 2 week Post-op YAG PC, vision improved - Discussed diagnosis in detail with patient. New glasses Rx was given today. Will continue to observe condition and or symptoms. Educational materials provided:about today's exam. Related to FOLLOW-UP SURGERY NOS - 1 month with DPW Related to Af ter cataract limiting vision After cataract limit ing vision OD Vision: vision affected. - Discussed diagnosis with patient and YAG PC understood for treatment, will proceed with laser treatment today. Educational materials provided:Yag Capsulotomy. Related to After cataract limiting vision - sched YAG PC OD Related to See impression: general plan General plan -After cataract limiting vision -Diabetes Mellitus Type 2, Uncomplicated - Letter dictated to Dr. Islas Discussed dx with pt, YAG PC understood for treatment pt understands all R-a-b and will schedulequestionaire needed on return Educational materials provided:Yag Capsulotomy. Related to See impression: general plan - 6 months IOL check Related to FOLLOW-UP SURGERY NOS FOLLOW-UP SURGERY NO S OD - Discussed diagnosis in detail with patient. No treatment is required at this time. Advised patient of condition. Will continue to observe condition and or symptoms. Advise OTC readers. Call if [facility] worsens. Educational materials provided:Medication Instruction. Continue to taper gtts Related to FOLLOW-UP SURGERY NOS - Return in 2 weeks with for post op exam. Related to FOLLOW-UP SURGERY NOS FOLLOW-UP SURGERY NO S OD 1 day Post-op PCL Excellent post-op course OD, IOP stable - Post-op instructins given. Instructed to begin Poly trim and Prednisolone qid and Nev[place] tid in operated eye today.return in 2 weeks. Related to FOLLOW-UP SURGERY NOS - sched CE OD Related to See i mpression: general plan General plan -SENILE NUCLEAR CATARACT -Diabetes Mellitus Type 2, Uncomplicated - Cataracts account for the patient's complaints. Discussed all risks, benefits, procedures and recovery. Patient understands changing glasses will not improve vision. Patient desires to have surgery, recommend phacoemulsification with intraocular lens.IOL Master done today Pt recently seen by PCP Related to See impression: general plan FOLLOW-UP SURGERY NO S, OS - s/p YAG PC OS vision affected - will continue to monitor, discussed ? NLDO OS - Discussed dx with pt, and good result after YAG PC discussed cataract development OD, and discussed anisometropia, pt denies this complaint and will recheck next visit but pt instructed to call if her vision worsens. Discussed treatment option for NLDO and warm compress with massage, and nasal spray recommended. 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 Pt elects YAG OS today.29@4.7Spoke to pt about spots and sparkles in vision for next few days Related to Opacified Capsule Cataract, Nuclear Sc lerosis, OD - established, stable - vision affected - will continue to monitor - Cataracts accounts for pt's complaints. No treatment currently recommended, patient will monitor vision changes and contact us with any decrease in vision. Related to Cataract, Nuclear Sclerosis - 3-4 weeks PO YAG OS Related to Opacified Capsule - sched YAG PC OS, and cat eval OD Related to Opacified Capsule Diabetes Type II, - no NPDR Rela jules to Diabetes Type II Opacified Capsule, O S - established, worsening - vision affected - may improve with surgery - discussed dx with pt, YAG PC understood, pt elects procedurere-evaluate OD cat at time of YAG Related to Opacified Capsule Cataract, Nuclear Sc lerosis, OD - established, worsening - vision affected - - Discussed cataract diagnosis with the patient. Discussed and reviewed treatment options for cataracts. Risks and benefits of surgical treatment were discussed and understood. Related to Cataract, Nuclear Sclerosis Assessments Type Assessment Date assessment Type 2 diabetes mellitus without complications assessment Vitreous degeneration, left eye assessment Presence of intraocular lens Feb Patient Care Teams Name Effective Dates (start - stop) Status Members No Information
--- OUTSIDE RECORDS SUMMARY | 2024-12-17 08:55 | XMS_ITS ---
Author Organization [facility] Address [address] [place] [address] Care Team Providers Care Blacksmith Farm Name Role Phone Torri Johnson PT Unavailable Unavail able Dustin Tim PT Unavailable Unavailab Jong Brunson SHEET ROCK TAPER Unavailable Unavaila ble Miscellaneous, Not In File Unavailable Unava Brijesh Hdz MD Primary Care Provider [phone] Active Problems Problem Noted Date Diagnosed Date Bilateral lower extremity edema 05/31/2021 Assessment & Plan (05/31/2021 3:28 PM CDT): Stable, new onset for past 2 weeks; patient broke her right arm to week ago, has been sitting more, is unable to lay flat in bed to sleep and has been sleeping in recliner Likely dependent as it is nonpitting and patient has no other signs or symptoms of heart failure or fluid overload Encouraged patient to raise legs as able, increase walking to at least 50 minutes 2-3 times per day Closed fracture of anatomica l neck of right humerus with routine healing 05/31/2021 Assessment & Plan (09/13/2021 1:57 PM SODA DRIER FEEDER): Not well controlled, had MRSA infection requiring removal of all surgical hardware Taking hydrocodone for pain Per patient bone is healing well Home PT and home nursing of present for infusions, receiving daily vancomycin Assessment & Plan (08/10/2021 7:53 PM SODA DRIER FEEDER): Stable improving, has completed course of antibiotics from MRSA infection, continues to have pain in right shoulder and chest -refer to PT for rehab Assessment & Plan (05/31/2021 3:28 PM CDT): Injury occurred approximately 2 weeks CO; patient is following up with orthopedics for evaluation of repair; patient may require right shoulder arthroplasty due to fracture location Chronic fatigue 04/21/2021 Assessment & Plan (04/21/2021 12:45 PM CDT): Continue to monitor, may be multifactorial; related to depression, increased anxiety and stress related to family illnesses, verses poorly controlled hypothyroidism Will continue to monitor and treat underlying illnesses Chest pain 03/15/2021 History of colonic polyps 08/16/2020 Sacroiliitis 11/27/2019 Lumbar post-laminectomy syndrome 10/19/2019 Arthritis of right knee 06/03/2019 Assessment & Plan (06/03/2019 10:31 AM CDT): Radiographically the patient has moderate arthritis of the knee with reactive synovitis clinically. After reviewing the treatment options the patient elected undergo a cortisone injection for her right knee. Hopefully this will help reduce some of the symptoms in her legs. The radicular pain she is having from her lower back into her legs is likely from her lumbar spine issues. She was encouraged to get back in with her vocational placement specialist. She wants, we have two vocational placement specialist in our group if it is more convenient for her. Chronic diastolic congestive heart failure 04/17 Assessment & Plan (04/21/2021 12:47 PM CDT): Stable, well controlled he LVEF is 55%, patient does have left ventricular hypertrophy with diastolic dysfunction No signs or symptoms of acute exacerbation, no orthopnea, no peripheral edema Will continue to monitor Continue carvedilol 6.25 mg, ASA 81 mg, losartan 50 mg Will make adjustments based upon further symptoms or progression of disease History of DVT (deep vein thrombosis) 04/17/2018 Spinal stenosis of lumbosacral region 04/17/2018 Assessment & Plan (04/21/2021 12:48 PM CDT): Continues to have regular back pain, has been walking more last few days to help clear mind prescribed worsening back pain Patient has not had physical therapy in the past Will encourage general exercises to help with low back pain Encouraged patient to return to Pain Medicine for other treatments are evaluation Deep vein thrombosis (DVT) of non-extremity vein 12/06/2017 Obesity, Class I, BMI 30-34.9 11/07/2017 Assessment & Plan (09/27/2020 2:05 PM SODA DRIER FEEDER): Not well controlled, patient weight is stable from 1 day ago Continue to monitor, encourage weight loss through dietary changes and exercise Assessment & Plan (05/10/2018 8:58 AM CDT): BMI Follow-up includes: nutrition counseling and education provided. History of right breast cancer 03/29/2017 Thyroid nodule 04/29/2016 Cervico-occipital neuralgia 03/22/2016 Overview (12/29/2016): Cervico-occipital neuralgia Abnormal mammogram 01/13/2016 Atherosclerosis of coronary artery 12/07/2015 Left ventricular systolic dysfunction 12/07/2015 Primary malignant neoplasm of breast 10/14/2015 Diabetes mellitus 10/14/2015 Assessment & Plan (04/21/2021 12:47 PM CDT): Not well controlled, A1c elevated at 8.1 Will continue to monitor with Q three-month checks Continue with metformin 1000 mg extended release daily Increase Januvia to 100 mg daily Encouraged patient to continue to watch dietary intake of carbohydrates, decreased baked goods in eat increased amounts of fruits and vegetables Assessment & Plan (02/17/2021 4:51 PM CDT): Stable, improving Last A1c was elevated, however patient has started to limit carbohydrates and sugars started diet Will continue to monitor If follow-up A1c is still elevated will discuss with patient adjusting medicines in order to better control blood sugar Assessment & Plan (12/07/2020 1:58 PM CDT): Not well controlled, has elevated a1c at 8.9, target close to 7.0 -diet is mixed, has not had much education on dietary changes -will restart metformin, continue Januvia; -refer to nutrition to help with dietary changes -fup in 6 weeks to evaluate response to therapy Assessment & Plan (10/25/2020 2:09 PM SODA DRIER FEEDER): Patient is better tolerating Januvia, will continue current dose and check a1c today Assessment & Plan (09/27/2020 2:03 PM SODA DRIER FEEDER): Does not want to check a1c today -unknown control, patient had high carbohydrate meals during holiday season -cannot tolerate metformin 2/2 diarrhea, would like to try a different medication -will prescribe Januvia, and recheck blood sugars in 1 month to evaluate response to new therapy Assessment & Plan (08/18/2020 12:44 PM SODA DRIER FEEDER): Stable, well controlled, will continue emphaglifozin-metformin combo pill and check A1c today Assessment & Plan (05/10/2018 8:58 AM CDT): Continue current treatment plan. Foot care discussed. 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 -continue to monitor aspatient does say she feels exhausted all of the time. Hyperlipidemia 10/26/2014 Overview (12/29/2016): Hyperlipidemia Assessment & Plan (08/18/2020 12:43 PM SODA DRIER FEEDER): Stable, well controlled, continue atorvastatin 80 mg Essential hypertension 10/26/2014 Overview (12/29/2016): Essential hypertension Assessment & Plan (10/25/2020 2:14 PM SODA DRIER FEEDER): Blood pressure is well controlled, no signs or symptoms of hypotension; will continue current dose. Hypothyroidism 10/26/2014 Overview (12/29/2016): Hypothyroidism Assessment & Plan (04/21/2021 12:48 PM CDT): Stable, TSH mildly elevated to 5.3 Will continue to monitor, may increase levothyroxine if patient continues to have chronic fatigue Assessment & Plan (02/17/2021 4:51 PM CDT): Stable, currently on levothyroxine 125 mcg Will continue to monitor, last TSH was normal Given patient's recent fatigue, will continue consider need for dose adjustment since based upon TSH measurement Assessment & Plan (10/25/2020 2:14 PM SODA DRIER FEEDER): Will check TSH today, patient reprots she feels tired all of the time, but does not have any other symptoms of hypo or hyper-thyroidism. Assessment & Plan (08/18/2020 12:44 PM SODA DRIER FEEDER): Stable, no signs or symptoms of hypo or hyperthyroidism due to incorrect medication dosage Will check TSH today to ensure appropriate dose Back pain 10/26/2014 Overview (12/29/2016): Backache Mitral regurgitation 06/18/2014 GERD (gastroesophageal reflux disease) 4 Other psoriasis 02/03/2008 Moderate episode of recurrent major depressive d isorder 12/23/2003 Assessment & Plan (04/21/2021 12:44 PM CDT): Stable, moderate improvement Patient reports that she has multiple stressors at home, including taking care of disabled as well as mother was recently diagnosed with likely lung cancer and placed on hospice Patient reports some improvement with sertraline 200 mg, will continue current dose Patient is not interested in counseling at this time, has good support network through friends, family, and other community members Will continue to monitor and encouraged patient to seek counseling if necessary Assessment & Plan (04/12/2021 4:09 PM CDT): Not well controlled, has multiple levels of stress as she has multiple stressors at home, PHQ-9 has been elevated to 16, moderately severe depression Patient is interested in medical therapy, however cannot have sedating medicine due to the multiple caregiver responsibilities for Patient overall just feels overwhelmed, encouraged patient to discuss counseling Continue sertraline 200 mg daily, and encourage counseling Assessment & Plan (03/22/2021 10:15 AM CDT): Not well controlled, patient continues to have chronic fatigue, feeling down; reports that she has some improvement with use of Sonido lift at home as well as help from daughter and son-in-law Discussed with patient importance of self-care, and refraining caring present at home Will continue current dose of medication, sertraline 200 mg daily, and will refer patient to counseling Encouraged patient also be actively engaged with group counseling for caregivers Assessment & Plan (02/17/2021 4:52 PM CDT): Possible source of fatigue, patient has multiple stressors at home Will continue sertraline 100 mg, discussed with patient need to just medicine if it is not fully control her depression Assessment & Plan (10/25/2020 2:12 PM SODA DRIER FEEDER): Improving, patient has started sertraline again, feels better, mood is improving. Assessment & Plan (09/27/2020 2:04 PM SODA DRIER FEEDER): Discussed with patient risk of GI bleeding combination of NSAIDs and sertraline, that likely occurs with all SSRIs Patient prefers emma continue with duloexetine -patient to work on some lifestyle changes for weight loss, which can also help with mood such as get out and exercise more Assessment & Plan (08/18/2020 12:48 PM SODA DRIER FEEDER): Patient is stress related to caring for and elderly mother Unable to travel, and limited social interactions due to COVID-19 He constipation, will continue Cymbalta 60 mg Continue to follow with patient to evaluate response to therapy Osteoarthritis 10/12/2003 Assessment & Plan (10/25/2020 2:12 PM SODA DRIER FEEDER): Not well controlled, continues to have pain that limts her. On NSAIDs and Gabapentin for pain management -patient to start on Humira for psoriasis which may help with spinal pain Current Treatment and Therapy Plans No current plan information found. Past Treatment and Therapy Plans No past plan information found. Lifetime Dose Tracking * Chemical Lifetime Dose Automatic Entry Manual Entr y Fluoro Time 1.05 minutes 1.05 minutes 0 minutes Air kerma at the reference point (Ka,r) 49.33 mGy 4 9.33 mGy 0 mGy Resolved Problems Problem Noted Date Diagnosed Date Resolved Date Head revolving around 04/18/20172020 Type 2 diabetes mellitus wit hout complication, without long-term current use of insulin 03/29/2017 04/17/2018 History of nutritional disorder 10/14/2015 04/17/2018
--- OUTSIDE RECORDS SUMMARY | 2024-12-17 08:55 | XMS_ITS | Encounter Summary ---
Author Organization [facility] Address [address] [place] [address] Care Team Providers Care Site Acquisition Specialist Name Role Phone Smith Islas MD Primary Care Provider [phone] Encounter Details Date Type Department Care Team (Latest Contact Info) Description 05/29/2007 Outpatient Historical [facility] Internal Medicine [address] [address] Smith Islas MD [address] [place] [id number] DM w/o Complication Type II (CMS/HCC) (Primary Dx) Social History Tobacco Use Types Packs/Day Years Used Date Smoking Tobacco: Never Assessed Comments Unknown Sex and Gender Information Value Date Recorded Sex Assigned at Not on file Legal Sex Female 3:30 AM 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 Gender Identity Not on file Sexual Orientation Not on file documented as of this encounter Plan of Treatment Not on file documented as of this encounter Procedures Procedure Name Priority Date/Time Associated Diagnosis Comments TSH Routine 05/29/2007 8:22 AM CDT HEMOGLOBIN A1C Routine 05/29/2007 8:22 AM CDT LIPID PANEL Routine 05/29/2007 8:22 AM CDT COMPREHENSIVE METABOLIC PANEL Routine 05/29/2007 8:22 AM CDT documented in this encounter Results * (ABNORMAL) HEMOGLOBIN A1C (05/29/2007 8:22 AM CDT) HEMOGLOBIN A1C 6.9(H) 4.1 - 6.1 % of Hgb INTERFACE SYSTEM GLUCOSE, MEAN BLOOD 168 mg/dL INTERFACE SYSTEM 05/29/2007 8:22 AM CDT Smith Islas MD CHEMISTRY ORDERABLES Edited Performing Organization Address City/[facility]/ZIP Co de Phone Number INTERFACE SYSTEM Refer to clinic/hospital department * TSH (05/29/2007 8:22 AM CDT) TSH 3.21 0.27 - 4.20 uU/mL INTERFACE SYSTEM 05/29/2007 8:22 AM CDT Smith Islas MD CHEMISTRY ORDERABLES Edited Performing Organization Address [facility] de Phone Number INTERFACE SYSTEM Refer to clinic/hospital department * (ABNORMAL) COMPREHENSIVE METABOLIC PANEL (05/29/2007 8:22 AM CDT) GLUCOSE 123(H) 65 - 99 mg/dL INTERFACE SYSTEM CREATININE 0.63 0.51 - 0.95 mg/dL INTERFACE SYSTEM CALCIUM 9.2 8.4 - 10.2 mg/dL INTERFACE SYSTEM ALKALINE PHOSPHATASE 129(H) 35 - 104 U/L INTERFACE SYSTEM AST 18 12 - 32 U/L INTERFACE SYSTEM ALT 20 0 - 31 U/L INTERFACE SYSTEM TOTAL PROTEIN 7.6 6.3 - 8.6 g/dL INTERFACE SYSTEM ALBUMIN 4.1 3.4 - 4.8 g/dL INTERFACE SYSTEM BILIRUBIN TOTAL 0.7 0.2 - 1.0 mg/dL INTERFACE SYSTEM BUN 16 6 - 20 mg/dL INTERFACE SYSTEM SODIUM 139 135 - 145 mmol/L INTERFACE SYSTEM POTASSIUM 4.0 3.5 - 4.9 mmol/L INTERFACE SYSTEM CHLORIDE 106 96 - 108 mmol/L INTERFACE SYSTEM CO2 24 22 - 30 mmol/L INTERFACE SYSTEM GFR, >60 >=60 mL/min/1. 7 sq meter INTERFACE SYSTEM GFR >60 >=60 mL/min/1. 7 sq meter INTERFACE SYSTEM Comment: Estimated GFR rate interpretative information for both Americans and non- Americans is available on the [facility] Intranet at: [email or web address] Select: Lab Policies and Procedures Select: Reference Ranges - GFR 05/29/2007 8:22 AM CDT Smith Islas MD CHEMISTRY ORDERABLES Edited Performing Organization Address [facility] de Phone Number INTERFACE SYSTEM Refer to clinic/hospital department * (ABNORMAL) LIPID PANEL (05/29/2007 8:22 AM CDT) CHOLESTEROL 175 100 - 199 mg/dL INTERFACE SYSTEM TRIGLYCERIDE 87 10 - 149 mg/dL INTERFACE SYSTEM HDL 56 40 - 59 mg/dL INTERFACE SYSTEM CHOL/HDL RATIO 3.1 2.0 - 5.0 INTER FACE SYSTEM LDL CALCULATED 102(H) <=99 mg/dL INTERFACE SYSTEM LIPID PANEL COMMENT See Below INTERFACE SYSTEM Comment: The adult ATP and pediatric NCEP classifications for lipids are available on the [facility]an[facility] at: [email or web address] Select: Lab Policies and Procedures,Current Select: Lipid Panel Interpretation 05/29/2007 8:22 AM CDT Result [facility] Smith Islas MD CHEMISTRY ORDERABLES Edited Performing Organization Address [facility] de Phone Number INTERFACE SYSTEM Refer to clinic/hospital department documented in this encounter Visit Diagnoses Diagnosis Type II or unspecified type diabetes mellitus without mention of complication, not stated as uncontrolled (CMS/HCC)- Primary Type II or unspecified type diabetes mellitus without mention of complication, not stated as uncontrolled documented in this encounter Care Teams Site Acquisition Specialist Relationship Specialty Start Date End Date Smith Islas MD [address] [place] [phone] PCP - General 10/22/03 07/11/15 documented as of this encounter
--- OUTSIDE RECORDS SUMMARY | 2024-12-17 08:55 | XMS_ITS | Encounter Summary ---
Author Organization [facility] Address [address] [place] [address] Care Team Providers Care Gas Regulator Repairer Helper Name Role Phone Smith Islas MD Primary Care Provider [phone] Encounter Details Date Type Department Care Team (Late st Contact Info) Description 10/15/2003 Outpatient Historical [facility] ([facility]) [address] [place] [id number] Sangita Carter MD Social History Tobacco Use Types Packs/Day Years Used Date Smoking Tobacco: Never Assessed Comments Unknown Sex and Gender Information Value Date Recorded Sex Assigned at Not on file Legal Sex Female 3:30 AM POND SCALER Gender Identity Not on file Sexual Orientation Not on file documented as of this encounter Plan of Treatment Not on file documented as of this encounter Visit Diagnoses Not on filedocumented in this encounter Care Teams Gas Regulator Repairer Helper Relationship Specialty Start Date End Date Smith Islas MD [address] [place] [phone] PCP - General 10/22/03 07/11/15 documented as of this encounter
--- OUTSIDE RECORDS SUMMARY | 2024-12-17 08:55 | XMS_ITS | Encounter Summary ---
Author Organization [facility] Address [address] [place] [address] Care Team Providers Care Fiberglass Laminator Name Role Phone Smith Islas MD Primary Care Provider [phone] Encounter Details Date Type Department Care Team (Late st Contact Info) Description 05/29/[address] [facility] Internal Medicine [address] [address] Smith Islas MD [address] [place] [phone] Social History Tobacco Use Types Packs/Day Years Used Date Smoking Tobacco: Never Assessed Comments Unknown Sex and Gender Information Value Date Recorded Sex Assigned at Not on file Legal Sex Female 3:30 AM DOCUMENTATION IMPROVEMENT SPECIALIST Gender Identity Not on file Sexual Orientation Not on file documented as of this encounter Last Filed Vital Signs Vital Sign Reading Time Taken Comments Blood Pressure 140/80 05/29/2007 9:45 AM CDT Pulse - - Temperature 36.4 C (97.5 F) 05/29/2007 9:45 AM CDT Respiratory Rate - - Oxygen Saturation - - Inhaled Oxygen Concentration - - Weight 93.9 kg (207 lb) 05/29/2007 9:45 AM CDT Height - - Body Mass Index 34.45 10/14/2003 10:30 AM DOCUMENTATION IMPROVEMENT SPECIALIST documented in this encounter Plan of Treatment Not on file documented as of this encounter Visit Diagnoses Not on filedocumented in this encounter Care Teams Fiberglass Laminator Relationship Specialty Start Date End Date Smith Islas MD [address] [place] [phone] PCP - General 10/22/03 07/11/15 documented as of this encounter
--- OUTSIDE RECORDS SUMMARY | 2024-12-17 08:55 | XMS_ITS | Encounter Summary ---
Author Organization [facility] Address [address] [place] [address] Care Team Providers Care Dialysis Nurse Name Role Phone Smith Islas MD Primary Care Provider [phone] Encounter Details Date Type Department Care Team (Late st Contact Info) Description 06/19/2007 Outpatient Historical [facility] Internal Medicine [address] [address] Smith Islas MD [address] [place] [phone] Social History Tobacco Use Types Packs/Day Years Used Date Smoking Tobacco: Never Assessed Comments Unknown Sex and Gender Information Value Date Recorded Sex Assigned at Not on file Legal Sex Female 3:30 AM BUSINESS OFFICE SPECIALIST Gender Identity Not on file Sexual Orientation Not on file documented as of this encounter Last Filed Vital Signs Vital Sign Reading Time Taken Comments Blood Pressure 140/80 06/19/2007 11:45 AM CDT Pulse - - Temperature - - Respiratory Rate - - Oxygen Saturation - - Inhaled Oxygen Concentration - - Weight 93.4 kg (206 lb) 06/19/2007 11:45 AM CDT Height - - Body Mass Index 34.28 10/14/2003 10:30 AM BUSINESS OFFICE SPECIALIST documented in this encounter Plan of Treatment Not on file documented as of this encounter Visit Diagnoses Not on filedocumented in this encounter Care Teams Dialysis Nurse Relationship Specialty Start Date End Date Smith Islas MD [address] [place] [phone] PCP - General 10/22/03 07/11/15 documented as of this encounter
--- OUTSIDE RECORDS SUMMARY | 2024-12-17 08:55 | XMS_ITS | Encounter Summary ---
Author Organization [facility] Address [address] [place] [address] Care Team Providers Care Electronic Equipment Repairer Name Role Phone Unavailable Primary Care Provider Unavailabl e Encounter Details Date Type Department Care Team (Late st Contact Info) Description 06/19/2023 Lab Requisition [facility] - DermPath Lab [address] [place] [address] Ravinder Mcgarry MD [address] [place] [id number] Social History Tobacco Use Types Packs/Day Years Used Date Smoking Tobacco: Never Assessed Sex and Gender Information Value Date Recorded Sex Assigned at Not on file Gender Identity Not on file Sexual Orientation Not on file documented as of this encounter Plan of Treatment Not on file documented as of this encounter Procedures Procedure Name Priority Date/Time Associated Diagnosis Comments DERMATOPATHOLOGY Routine 06/18/2023 3:33 AM CDT documented in this encounter Results * DERMATOPATHOLOGY (06/18/2023 3:33 AM CDT) Case Report Dermatopathology Report Case: [id number] Authorizing Provider: Ravinder Mcgarry MD Collected: 06/18/2023 03:33 AM Ordering Location: [facility] DermPath Lab Received: 06/20/2023 06:23 AM Pathologist: Viral Potts MD Specimen: Skin, post neck 3:29 PM CDT DERMATOPATHOLOGY LABORATORY Final Diagnosis Specimen A. SKIN, post neck: SUPERFICIAL PERIVASCULAR LYMPHOCYTIC INFILTRATE WITH RARE EOSINOPHILS (L27.0) (see microscopic description and comment) 3 3:29 PM CDT DERMATOPATHOLOGY LABORATORY Clinical History Psoriasis vs. Tinea vs. Other. Path# [id number] 3 3:29 PM CDT DERMATOPATHOLOGY LABORATORY Gross Description Specimen A: Received is one formalin filled container labeled with the patient's name and designated post neck. The specimen consists of a shave biopsy measuring 5x4x1 mm. Jar 0. 3 3:29 PM CDT DERMATOPATHOLOGY LABORATORY Microscopic Description Specimen A. SKIN, post neck: Sections show a perivascular and interstitial infiltrate including lymphocytes and very rare eosinophils. There are no prominent epidermal or interface changes. Grocott's methenamine silver (GMS) stain is negative for fungal elements in the sections examined. COMMENT: These histological findings can be seen in a resolving hypersensitivity reaction. 3 3:29 PM CDT DERMATOPATHOLOGY LABORATORY Disclaimer An external and internal positive and negative controls are appropriate for the histochemical, immunohistochemical and immunofluorescence stain(s) in this case (if any), except where stated explicitly. The performance characteristics of the stain(s) cited in this report were developed and its performance characteristic determined by the Dermatopathology Laboratory at [facility], directed by Dr. Tyrese Potts. These tests need not be, and therefore are not, approved by the [place] Food and Drug Administration. The tests are used for clinical purposes. Billing Codes Specimen Charges Stain Charges 61987 1 24500 1 3 3:29 PM CDT DERMATOPATHOLOGY LABORATORY Embedded Images 3 3:29 PM CDT DERMATOPATHOLOGY LABORATORY Pathology/Cytolo gy TISSUE SPECIMEN FROM SKIN / Unknown 06/18/2023 3:33 AM CDT 06/20/2023 6:23 AM CDT Ravinder Mcgarry MD LAB - PATHOLOGY/CYTO LOGY ORDERABLES DERMATOPATHOLOGY LABORATORY [facility] - Department of Dermatology [address], [address] [phone] documented in this encounter Visit Diagnoses Not on filedocumented in this encounter
--- OUTSIDE RECORDS SUMMARY | 2024-12-17 08:55 | XMS_ITS | Referral Summary ---
Author Organization [facility] Address [address] [place] [address] Care Team Providers Care Fitness Instructor Name Role Phone Torri Johnson PT Unavailable Unavail able Dustin Tim PT Unavailable Unavailab Jong Brunson TRASH COLLECTOR Unavailable Unavaila ble Miscellaneous, Not In File Unavailable Unava Brijesh Hdz MD Primary Care Provider Encounters Date Type Department Care Team Description 11/17/2024 1:50 PM GEAR REPAIR SUPERVISOR - 11/17/2024 11:59 PM GEAR REPAIR SUPERVISOR Hospital Encounter [facility] Advanced Medicine Breast Imaging [facility] Advanced [facility] ([facility]) [address] [place] [id number] Screening mammogram, encounter for Discharge Disposition: Discharge to home or self care 10/04/2024 2:00 PM GEAR REPAIR SUPERVISOR Office Visit [facility] [place] [address] [place] [id number] Janelle Duenas NP Acute pansinusitis, recurrence not specified (Primary Dx); Viral upper respiratory infection from Last 3 Months Allergies Active Allergy Reactions Criticality Noted Date Comments Adhesive Tape-Silicones Itching Low 04/13/2011 Latex Itching Low 03/22/2021 Medications fluticasone (FLONASE) 50 mcg/actuation nasal spray inhale 2 spray by intranasal route every day in each nostril 1 spray 2 10/29/19 15 Active multivitamin,tx-ir on-minerals tablet Take 1 tablet by mouth daily. Per discharge instructions 07/26. Active aspirin 81 mg tablet Take 1 tablet (81 mg total) by mouth daily Active gabapentin (NEURONTIN) 300 mg capsule Take 1 capsule (300 mg total) by mouth 2 (two) times a day Active levothyroxine (SYNTHROID) 125 mcg tabletIndications: Hypothyroidism, unspecified type Take 1 tablet (125 mcg total) by mouth daily 90 tablet 1 08/24/20 20 Active metFORMIN XR (GLUCOPHAGE XR) 500 mg 24 hr tablet Take 2 tablets (1,000 mg total) by mouth daily with breakfast 180 tablet 3 12/08/19 21 Active carvediloL (COREG) 6.25 mg tabletIndications: Chronic systolic congestive heart failure (HCC) Take 1 tablet (6.25 mg total) by mouth 2 (two) times a day with meals 180 tablet 3 02/24/20 21 Active sertraline (ZOLOFT) 100 mg tabletIndications: depression,General ized Anxiety Disorder Take 2 tablets (200 mg total) by mouth daily 60 tablet 2 03/09/20 21 Active atorvastatin (LIPITOR) 80 mg tabletIndications: Hyperlipidemia, unspecified hyperlipidemia type TAKE 1 TABLET BY MOUTH DAILY 90 tablet 1 04/04/20 21 Active SITagliptin (JANUVIA) 100 mg tabletIndications: type 2 diabetes mellitus Take 1 tablet (100 mg total) by mouth daily 90 tablet 1 04/21/20 21 Active HYDROcodone-acetam inophen (NORCO) 5-325 mg per tablet 06/30/20 21 Active losartan (COZAAR) 50 mg tabletIndications: Hypertensive heart disease with chronic systolic congestive heart failure (HCC) TAKE 1 TABLET(50 MG) BY MOUTH DAILY. STOP LISINOPRIL 10 MG 90 tablet 1 07/11/20 21 Active glimepiride (AMARYL) 1 mg tablet 07/11/20 22 Active meclizine (ANTIVERT) 12.5 mg tablet Take 1 tablet (12.5 mg total) by mouth 3 (three) times a day as needed for dizziness 30 tablet 04/11/20 23 Active ondansetron (ZOFRAN) 4 mg tablet Take 1 tablet (4 mg total) by mouth every 6 (six) hours 12 tablet 04/11/20 23 Active fluconazole (DIFLUCAN) 150 mg tabletIndications: Antibiotic-induced yeast infection Take 1 tablet (150 mg total) by mouth daily Take one tab now. Repeat in 7 days if symptoms persist. 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 She wants, we have two software engineering specialist in our group if it is [...] 11/07/2017 Assessment & Plan (09/27/2020 2:05 PM GEAR REPAIR SUPERVISOR): Not well controlled, patient weight is stable [...] therapy Assessment & Plan (10/25/2020 2:09 PM GEAR REPAIR SUPERVISOR): Patient is better tolerating Januvia, will continue current dose and check a1c today Assessment & Plan (09/27/2020 2:03 PM GEAR REPAIR SUPERVISOR): Does not want to check a1c today -unknown control, patient had high carbohydrate meals during holiday season -cannot tolerate metformin 2/2 diarrhea, would like to try a different medication -will prescribe Januvia, and recheck blood sugars in 1 month to evaluate response to new therapy Assessment & Plan (08/18/2020 12:44 PM GEAR REPAIR SUPERVISOR): Stable, well controlled, will continue emphaglifozin-metformin combo pill and check A1c today Assessment & Plan (05/10/2018 8:58 AM CDT): Continue current treatment plan. Foot care discussed. 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 -continue to monitor aspatient does say she feels exhausted all of the time. Hyperlipidemia 10/26/2014 Overview (12/29/2016): Hyperlipidemia Assessment & Plan (08/18/2020 12:43 PM GEAR REPAIR SUPERVISOR): Stable, well controlled, continue atorvastatin 80 mg Essential hypertension 10/26/2014 Overview (12/29/2016): Essential hypertension Assessment & Plan (10/25/2020 2:14 PM GEAR REPAIR SUPERVISOR): Blood pressure is well controlled, no signs [...] measurement Assessment & Plan (10/25/2020 2:14 PM GEAR REPAIR SUPERVISOR): Will check TSH today, patient reprots she feels tired all of the time, but does not have any other symptoms of hypo or hyper-thyroidism. Assessment & Plan (08/18/2020 12:44 PM GEAR REPAIR SUPERVISOR): Stable, no signs or symptoms of hypo [...] depression Assessment & Plan (10/25/2020 2:12 PM GEAR REPAIR SUPERVISOR): Improving, patient has started sertraline again, feels better, mood is improving. Assessment & Plan (09/27/2020 2:04 PM GEAR REPAIR SUPERVISOR): Discussed with patient risk of GI bleeding combination of NSAIDs and sertraline, that likely occurs with all SSRIs Patient prefers emma continue with duloexetine -patient to work on some lifestyle changes for weight loss, which can also help with mood such as get out and exercise more Assessment & Plan (08/18/2020 12:48 PM GEAR REPAIR SUPERVISOR): Patient is stress related to caring for and elderly mother Unable to travel, and limited social interactions due to COVID-19 He constipation, will continue Cymbalta 60 mg Continue to follow with patient to evaluate response to therapy Osteoarthritis 10/12/2003 Assessment & Plan (10/25/2020 2:12 PM GEAR REPAIR SUPERVISOR): Not well controlled, continues to have pain that limts her. On NSAIDs and Gabapentin for pain management -patient to start on Humira for psoriasis which may help with spinal pain Resolved Problems Problem Noted Date Diagnosed Date Resolved Date Head revolving around 04/18/20172020 Type 2 diabetes mellitus wit hout complication, without long-term current use of insulin 03/29/2017 04/17/2018 History of nutritional disorder 10/14/2015 04/17/2018 Immunizations Immunization Administration Dates Next Due Influenza, Quadrivalent, Hig h Dose, Preservative Free, Intrr 08/10/2021 Influenza, Quadrivalent, Spl it, Intramuscular 06/17/2015 Influenza, Quadrivalent, Spl it, Preservative Free, Intramuscular 07/06/2020,06/27/2013 Influenza, Trivalent, High D ose, Split, Preservative Free, Intramuscular 05/10/2018,06/18/2017,06/30/2016,06/16 Influenza, Trivalent, IM (MDV) 4,06/16/2014,07/02/2012,07/06,07/25/2010,06/24/2009,07/03/2008 ,07/23/2007,06/24/2007 Influenza, Unspecified 05/25/2021(Deferr ed: Patient Refused),05/25/2020(Deferred: Patient Refused),07/31/2019,06/26/2019, 017 Pneumococcal Conjugate PCV 13 10/22/2013 Pneumococcal Conjugate, Unspecified 07/25/2010 Pneumococcal Polysaccharide PPV23 2019,09/20/2015,09/24/2013,08/04 Td, adsorbed 01/15/2004 Tdap 06/16/2014 Social History Tobacco Use Types Packs/Day Years Used Date Smoking Tobacco: Former Cigarettes 1 15 Smokeless Tobacco: Never Tobacco Cessation:Counseling Given: Yes Comments:quit 30 years ago Alcohol Use Standard Drinks/Week Comments Yes 0 (1 standard drink = 0.6 oz pur e alcohol) rarely Social Connection and Isolat ion Panel [NHANES] Answer Date Recorded In a typical week, how many times do you talk on the phone with family, friends, or neighbors? More than three times a week 03/22/2021 How often do you get togethe r with friends or relatives? More than three times a week 03/22/2021 How often do you attend chur ch or orthodox services? Never 03/22/2021 Do you belong to any clubs o r organizations such as samaritan groups, unions, fraternal or athletic groups, or school groups? No 03/22/2021 How often do you attend meet ings of the clubs or organizations you belong to? Never 03/22/2021 Are you , , di vorced, , never , or living with a partner? 03/22/2021 AUDIT-C Answer Date Recorded Q1: How often do you have a drink containing alc ohol? Never 08/10/2021 Average Number of Drinks Not on file 021 Q3: How often do you have si x or more drinks on one occasion? Never 08/10/2021 Overall Financial Resource Strain (CARDIA) Answe r Date Recorded How hard is it for you to pa y for the very basics like food, housing, medical care, and heating? Not hard at all 03/22/2021 PHQ-2 Answer Date Recorded PHQ-2 Total Score (If total score is 3 or more points, staff should administer the PHQ-9) 0 08/10/2021 Hunger Vital Sign Answer Date Recorded Within the past 12 months, y ou worried that your food would run out before you got the money to buy more. Never true 03/16/20 21 Within the past 12 months, t he food you bought just didn't last and you didn't have money to get more. Never true 03/16/2021 PRAPARE - Transportation Answer Date Re corded In the past 12 months, has l ack of transportation kept you from medical appointments or from getting medications? No 02/23 In the past 12 months, has l ack of transportation kept you from meetings, work, or from getting things needed for daily living? No 03/22/2021 Housing Stability Vital Sign Answer Daniel e Recorded In the last 12 months, was t here a time when you were not able to pay the mortgage or rent on time? No 03/22/2021 In the last 12 months, how many places have you lived? 1 03/22/2021 In the last 12 months, was t here a time when you did not have a steady place to sleep or slept in a m[facility]p (including now)? No 03/22/2021 Personal Safety Answer Date Recorded Have you ever been in or are you currently in a harmful physical or emotional relationship or is someone making you feel afraid or unsafe? Denies 04/11/2023 Comments No Sex and Gender Information Value Date Recorded Sex Assigned at Not on file Legal Sex Female 6:18 PM GEAR REPAIR SUPERVISOR Gender Identity Not on file Sexual Orientation Not on file Last Filed Vital Signs Vital Sign Reading Time Taken Comments Blood Pressure 146/84 10/04/2024 2:04 PM GEAR REPAIR SUPERVISOR Pulse 88 10/04/2024 2:04 PM GEAR REPAIR SUPERVISOR Temperature 36.6 C (97.8 F) 10/04/2024 2:04 PM GEAR REPAIR SUPERVISOR Respiratory Rate 18 10/04/2024 2:04 PM GEAR REPAIR SUPERVISOR Oxygen Saturation 97% 10/04/2024 2:04 PM GEAR REPAIR SUPERVISOR Inhaled Oxygen Concentration - - Weight 92.5 kg (204 lb) 10/04/2024 2:04 PM GEAR REPAIR SUPERVISOR Height 160 cm (5' 3 ) 10/04/2024 2:04 PM GEAR REPAIR SUPERVISOR Body Mass Index 36.14 10/04/2024 2:04 PM GEAR REPAIR SUPERVISOR Plan of Treatment Not on file Procedures Procedure Name Priority Date/Time Associated Diagnosis Comments SCREENING MAMMOGRAM LEFT W CONG UNILATERAL ONLY Schedule Routine, Read Routine (OP Routine) 11/17/2024 2:07 PM GEAR REPAIR SUPERVISOR Screening mammogram, encounter for EGFR STAT 04/11/2023 7:19 PM CDT HEMOGLOBIN A1C Routine 03/16/2021 6:27 AM CDT DIABETIC EYE EXAM Routine 12/06/2020 LIPID PANEL Routine 10/25/2020 12:00 PM GEAR REPAIR SUPERVISOR Annual physical exam ALBUMIN CREATININE RATIO, URINE Routine 10/25/2020 12:00 PM GEAR REPAIR SUPERVISOR Type 2 diabetes mellitus with other circulatory complication, without long-term current use of insulin (HCC) DEXA AXIAL SKELETON BONE DENSITY 1 OR MORE SITES Schedule Routine, Read Routine (OP Routine) 10/06/2019 1:00 PM GEAR REPAIR SUPERVISOR Asymptomatic menopause COLONOSCOPY IMAGES 11/17/2015 from Last 3 Months or Most Recently Relevant to Health Maintenance Results * Screening Mammogram Left W Cong Unilateral Only (11/17/2024 2:07 PM GEAR REPAIR SUPERVISOR) Anatomical Region Laterality Modality Breast Left Mammography Narrative 11/19/2024 11:42 AM GEAR REPAIR SUPERVISOR Mammogram Technique: Left Breast Digital Breast Tomosynthesis, Unilateral C-view 2D Screening mammogram. Views obtained: left craniocaudal and left mediolateral oblique. Computer Aided Detection was performed. Mammogram Findings: The present examination has been compared to prior imaging studies performed at [facility] on 09/20/2021, 09/21/2022 and 11/16/2023. There are scattered areas of fibroglandular density. There is no suspicious abnormality in the left breast. Patient status post contralateral mastectomy for personal history of breast cancer. Impression: There is no mammographic evidence of malignancy. Annual screening mammography is recommended. OVERALL FINAL ASSESSMENT: BI-RADS CATEGORY 1: Negative. Procedure Note Ciara Blackwood MD - 11/19/2024 Mammogram Technique: Left Breast Digital Breast Tomosynthesis, Unilateral C-view 2D Screening mammogram. Views obtained: left craniocaudal and left mediolateral oblique. Computer Aided Detection was performed. Mammogram Findings: The present examination has been compared to prior imaging studies performed at [facility] on 09/20/2021, 09/21/2022 and 11/16/2023. There are scattered areas of fibroglandular density. There is no suspicious abnormality in the left breast. Patient status post contralateral mastectomy for personal history ofbreast cancer. Impression: There is no mammographic evidence of malignancy. Annual screening mammography is recommended. OVERALL FINAL ASSESSMENT: BI-RADS CATEGORY 1: Negative. us Self Screening Mammogram IMG MAMMO PROCEDURES Fi nal Result * eGFR (04/11/2023 7:19 PM CDT) eGFR 83 mL/min/1. 73 m2 [facility] ([place]) Comment: Interpretive Data Reference Interval Normal >/= 90 mL/min/1.73m2 Mildly decreased* 60 - 89 mL/min/1.73m2 Mildly to moderately decreased 45 - 59 mL/min/1.73m2 Moderately to severely decreased 30 - 44 mL/min/1.73m2 Severely decreased 15 - 29 mL/min/1.73m2 Kidney Failure < 15 mL/min/1.73m2 *Relative to young adult level Estimated glomerular filtration rate is determined by the 2020 CKD-EPI equation recommended by the National Kidney Foundation (A Unifying Approach to GFR Estimation: Recommendations of the NKF-ASK Task Force on Reassessing the Inclusion of Race in Diagnosing Kidney Disease, JASN 2020). The CKD-EPI equation should not be used for patients with unstable renal function and has not been validated in children and those over 70. Current interpretive data was last reviewed 2021. Blood 04/11/2023 7:19 PM CDT 04/11/2023 7:29 PM CDT Kris Pan MD LAB BLOOD ORDERABLES Final R esult [facility] ([place]) [facility] Department [place] [address] * (ABNORMAL) Hemoglobin A1c (03/16/2021 6:27 AM CDT) Hgb A1C 8.1(H) 4.0 - 5.6 % [facility] Estimated Average Glucose 186 mg/dL [facility] Comment: The ADA recommends reporting an estimated Average Glucose (eAG) with all Hemoglobin A1c results using the equation derived from a study of 507 normal and diabetic adults. Minority populations were underrepresented and children were not included. (Diabetes Care 31:5220-6472, 2007). The eAG is not equivalent to a fasting glucose. Blood specimen (specimen) 03/16/2021 6:27 AM CDT 03/16/2021 7:21 AM CDT Heike Lau NP LAB BLOOD ORDERABLES Final R esult [facility] [address] Department [place] [address] * Diabetic Eye Exam (12/06/2020) Historical Provider HEALTH MAINTENANCE Edited Result - Final * Albumin Creatinine Ratio, Urine (10/25/2020 12:00 PM GEAR REPAIR SUPERVISOR) Albumin Ur 25.3 mg/L [facility] Comment: Interpretive Data No reference range established. Current interpretive data was last revised 2019. Creatinine Ur 108.3 mg/dL CHUCK Comment: Interpretive Data No reference range established. Current interpretive data was last revised 2019. Albumin Creatinine Ratio, Ur 23 1 - 29 mg/g [facility] Urine 10/25/2020 12:0 0 PM GEAR REPAIR SUPERVISOR 10/25/2020 4:42 PM GEAR REPAIR SUPERVISOR us Bradley Rubin MD LAB URINE ORDERABLES Tangela garcia Result [facility] [address] Department [place] [address] * (ABNORMAL) Lipid panel (10/25/2020 12:00 PM GEAR REPAIR SUPERVISOR) Cholesterol 216(H) 30 - 199 mg/dL [facility] Comment: Interpretive Data Ages < or = 19 years Acceptable: <170 mg/dL Borderline high: 170-199 mg/dL High: >or= 200 mg/dL Ages > or = 20 years Desirable: <200 mg/dL Borderline high: 200-239 mg/dL High: >or= 240 mg/dL Literature References: 1. Expert Panel on Integrated Guidelines for Cardiovascular Health and Risk Reduction in Children and Adolescents. Pediatrics 2011;128:S213 2. NCEP Expert Panel. Circulation 2004;110:227 Current Interpretive Data was last revised on 2018. Triglycerides 136 <=149 mg/dL [facility] Comment: Interpretive Data Ages < or = 9 years Acceptable: <75 mg/dL Borderline high: 75-99 mg/dL High: >or= 100 mg/dL Ages 10 to 20 years Acceptable: <90 mg/dL Borderline high: 90-129 mg/dL High: >or= 130 mg/dL Ages > or = 20 years Desirable: <150 mg/dL Borderline high: 150-199 mg/dL High: 200-499 mg/dL Very high: >or= 499 mg/dL Literature References: 1. Expert Panel on Integrated Guidelines for Cardiovascular Health and Risk Reduction in Children and Adolescents. Pediatrics 2011;128:S213 2. NCEP Expert Panel. Circulation 2004;110:227 Current Interpretive Data was last revised on 2018. HDL 60 >=40 mg/dL [facility] Comment: Interpretive Data Ages < or = 19 years Acceptable: >45 mg/dL Borderline low: 40-45 mg/dL Low: <40 mg/dL Ages > or = 20 years Desirable: >or= 60 mg/dL Low: <40 mg/dL Literature References: 1. Expert Panel on Integrated Guidelines for Cardiovascular Health and Risk Reduction in Children and Adolescents. Pediatrics 2011;128:S213 2. NCEP Expert Panel. Circulation 2004;110:227 Current Interpretive Data was last revised on 2018. LDL, calculated 129 <=129 mg/dL [facility] Comment: Interpretive Data Ages < or = 19 years Acceptable: <110 mg/dL Borderline high: 110-129 mg/dL High: >or= 130 mg/dL Ages > or = 20 years Optimal: <100 mg/dL Near optimal: 100-129 mg/dL Borderline high: 130-159 mg/dL High: >160 mg/dL Literature References: 1. Expert Panel on Integrated Guidelines for Cardiovascular Health and Risk Reduction in Children and Adolescents. Pediatrics 2011;128:S213 2. NCEP Expert Panel. Circulation 2004;110:227 Current Interpretive Data was last revised on 2018. Non-HDL Cholesterol 156 mg/dL [facility] Comment: Interpretive Data Ages < or = 19 years Acceptable: <120 mg/dL Borderline high: 120-144 mg/dL High: >145 mg/dL Ages > or = 20 years When triglycerides are >200 mg/dL, Non-HDL cholesterol is a secondary target of therapy with treatment goals that are 30 mg/dL greater than the LDL cholesterol target. Literature References: 1. Expert Panel on Integrated Guidelines for Cardiovascular Health and Risk Reduction in Children and Adolescents. Pediatrics 2011;128:S213 2. NCEP Expert Panel. Circulation 2004;110:227 Current Interpretive Data was last revised on 2018. Chol/HDL ratio 4 [facility] Blood specimen (specimen) 10/25/2020 12:00 PM GEAR REPAIR SUPERVISOR 10/25/2020 4:42 PM GEAR REPAIR SUPERVISOR us Bradley Rubin MD LAB BLOOD ORDERABLES Tangela l Result [facility] [address] Department [place] [address] * Dexa Axial Skeleton Bone Density 1 or 2 Site (10/06/2019 1:00 PM GEAR REPAIR SUPERVISOR) Anatomical Region Laterality Modality Body N/A Other 10/06/2019 1:11 PM GEAR REPAIR SUPERVISOR Impressions 10/06/2019 1:15 PM GEAR REPAIR SUPERVISOR Normal bone mineral density of the spine. Bone mineral density of the left hip falls within osteopenia range. In comparison to previous examination, there is increased bone mineral density of the spine and left hip. Electronically signed by: Janeen Riojas M.D. Narrative 10/06/2019 1:15 PM GEAR REPAIR SUPERVISOR Examination: Bone densitometry of the lumbar spine and the left hip Order Date: 10/06/2019 12:30 PM History: Osteoporosis screening. Comparison: 08/15/2017, carcinoma of the breasts 191 9. Findings: The bone densitometry of the L1-L4 region, the left femoral neck and the total left hip was calculated using dual-energy x-ray absorptiometry. Summary: Bone mineral density (BMD) of the lumbar spine (L1-4): T-score 1.6; 118% of normal Bone mineral density (BMD) of the total left hip: T-score -1.3; 80% of normal Bone mineral density (BMD) of the left femoral neck: T-score -1.8; 76% of normal Bone mineral density of the spine falls within normal range, bone mineral density of the left hip falls within osteopenia range. In comparison to previous examination, there is 10.4% change in the spine findings and 2.2% change in the left hip findings suggestive of increased bone mineral density. Procedure Note Janeen Riojas MD - 10/06/2019 Examination: Bone densitometry of the lumbar spine and the left hip Order Date: 10/06/2019 12:30 PM History: Osteoporosis screening. Comparison: 08/15/2017, carcinoma of the breasts 191 9. Findings: The bone densitometry of the L1-L4 region, the left femoral neck and the total left hip was calculated using dual-energy x-ray absorptiometry. Summary: Bone mineral density (BMD) of the lumbar spine (L1-4): T-score 1.6; 118% of normal Bone mineral density (BMD) of the total left hip: T-score -1.3; 80% of normal Bone mineral density (BMD) of the left femoral neck: T-score -1.8; 76% of normal Bone mineral density of the spine falls within normal range, bone mineral density of the left hip falls within osteopenia range. In comparison to previous examination, there is 10.4% change in the spine findings and 2.2% change in the left hip findings suggestive of increased bone mineral density. IMPRESSION: Normal bone mineral density of the spine. Bone mineral density of the left hip falls within osteopenia range. In comparison to previous examination, there is increased bone mineral density of the spine and left hip. Electronically signed by: Janeen Riojas M.D. Radhika Arredondo MD IMG DXA PROCEDURES Final Res ult * COLONOSCOPY IMAGES (11/17/2015) Anatomical Region Laterality Modality Other Narrative 11/17/2015 Ordered by an unspecified provider. Historical Provider GI PROCEDURE ORDERABLES F inal Result from Last 3 Months or Most Recently Relevant to Health Maintenance Insurance A[employer] MEDICARE GOLD [facility] MDCR HMO REF UHC MEDICARE ADVANTAGE [facility] REF AETNA MEDICARE GOLD AETNA MEDICARE GOLD Advance Directives For more information, please contact: [phone] Documents on File Type Date Recorded Patient Egg Trayer Expl anation ADVANCE DIRECTIVE 03/18/2021 10:38 AM JENNIFER R OF [employer]ICAL ADVANCE DIRECTIVE 08/10/2017 9:07 AM JENNIFER R [employer] * Full Code (Latest Code Status on File) Date Activated Date Inactivated Comments 03/15/2021 9:40 PM 03/17/2021 7:03 PM Care Teams Fitness Instructor Relationship Specialty Start Date End Date Brijesh Cardenas MD PCP - General Family Medicine 07/12/22 Torri Johnson, PT Physical Therapist Physical Therapy 04/18/18 Dustin Tim, PT Physical Therapist Physical Therapy 04/26/18 Jong Reeves, TRASH COLLECTOR Physical Therapist Physical Therapy 05/08/18 Miscellaneous, Not In File 03/17/21
--- OUTSIDE RECORDS SUMMARY | 2024-12-17 08:55 | XMS_ITS | Clinical Summary ---
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 She wants, we have two regional extension service specialist in our group if it is [...] 11/07/2017 Assessment & Plan (09/27/2020 2:05 PM METAL SPRAYER): Not well controlled, patient weight is stable [...] therapy Assessment & Plan (10/25/2020 2:09 PM METAL SPRAYER): Patient is better tolerating Januvia, will continue current dose and check a1c today Assessment & Plan (09/27/2020 2:03 PM METAL SPRAYER): Does not want to check a1c today -unknown control, patient had high carbohydrate meals during holiday season -cannot tolerate metformin 2/2 diarrhea, would like to try a different medication -will prescribe Januvia, and recheck blood sugars in 1 month to evaluate response to new therapy Assessment & Plan (08/18/2020 12:44 PM METAL SPRAYER): Stable, well controlled, will continue emphaglifozin-metformin combo pill and check A1c today Assessment & Plan (05/10/2018 8:58 AM CDT): Continue current treatment plan. Foot care discussed. 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 -continue to monitor aspatient does say she feels exhausted all of the time. Hyperlipidemia 10/26/2014 Overview (12/29/2016): Hyperlipidemia Assessment & Plan (08/18/2020 12:43 PM METAL SPRAYER): Stable, well controlled, continue atorvastatin 80 mg Essential hypertension 10/26/2014 Overview (12/29/2016): Essential hypertension Assessment & Plan (10/25/2020 2:14 PM METAL SPRAYER): Blood pressure is well controlled, no signs [...] measurement Assessment & Plan (10/25/2020 2:14 PM METAL SPRAYER): Will check TSH today, patient reprots she feels tired all of the time, but does not have any other symptoms of hypo or hyper-thyroidism. Assessment & Plan (08/18/2020 12:44 PM METAL SPRAYER): Stable, no signs or symptoms of hypo [...] depression Assessment & Plan (10/25/2020 2:12 PM METAL SPRAYER): Improving, patient has started sertraline again, feels better, mood is improving. Assessment & Plan (09/27/2020 2:04 PM METAL SPRAYER): Discussed with patient risk of GI bleeding combination of NSAIDs and sertraline, that likely occurs with all SSRIs Patient prefers emma continue with duloexetine -patient to work on some lifestyle changes for weight loss, which can also help with mood such as get out and exercise more Assessment & Plan (08/18/2020 12:48 PM METAL SPRAYER): Patient is stress related to caring for and elderly mother Unable to travel, and limited social interactions due to COVID-19 He constipation, will continue Cymbalta 60 mg Continue to follow with patient to evaluate response to therapy Osteoarthritis 10/12/2003 Assessment & Plan (10/25/2020 2:12 PM METAL SPRAYER): Not well controlled, continues to have pain [...] 04/17/2018 History of nutritional disorder 10/14/2015 04/17/2018 Encounters Date Type Department Care Team Description 11/17/2024 1:50 PM METAL SPRAYER - 11/17/2024 11:59 PM METAL SPRAYER Hospital Encounter [facility] ([facility]) [address] [place] [id number] Screening mammogram, encounter for Discharge Disposition: Discharge to home or self care 10/04/2024 2:00 PM METAL SPRAYER Office Visit [facility] [address] [place] [address] Janelle Duenas, AILYN Acute pansinusitis, recurrence not specified (Primary Dx); Viral upper respiratory infection from Last 3 Months Immunizations Immunization Administration Dates Next Due Influenza, [...] PPV23 2019,09/20/2015,09/24/2013,08/04 Td, adsorbed 01/15/2004 Tdap 06/16/2014 Surgical History Surgery Date Site/Laterality Comments OTHER SURGICAL HISTORY Cancer, breast: Mastectomy of right breast OTHER SURGICAL HISTORY back surgery x 3 on l-spine BACK SURGERY MASTECTOMY MASTECTOMY 01/22/1999 - 02/21/1999 SHOULDER SURGERY 06/03/2021 Right hardware placement OTHER STRABISMUS SURGERY 06/20/2021 infection from surgery, took out hardware Medical History Medical History Date Comments Osteoarthritis Osteoarthritis; Comments: DNT 10/29/2014 - Malignant neoplasm of female breast (HCC) Cancer, breast; Comments: DNT 10/29/2014 -1998 Type 2 diabetes mellitus (HCC) D iabetes type 2; Comments: DNT 10/29/2014 - Hypertension Hypertension Disorder of thyroid Thyroid dise ase Depression Depression Gastroesophageal reflux disease GERD Hx Other Medical neuropathy feet ; Comments: JWS 03/02/2015 - Dizziness Back pain Joint pain Neuropathy Sinusitis Wrist disorder Family History Medical History Relation Name Comments Heart disease Father Diabetes Mother Diabetes mellit us; Hypertension Mother Stroke Mother Stroke; Arthritis Other 1 Family history of arthritis; Diabetes Other 2 Family history of diabetes; Cancer Sister Relation Name Status Comments Brother 1 Alive Brother 2 Alive Brother 3 Alive Father Mother Alive Other 1 Other 2 Sister Social History Tobacco Use Types Packs/Day Years [...] often do you attend chur ch or yazdanism services? Never 03/22/2021 Do you belong to any clubs o r organizations such as muslim groups, unions, fraternal or athletic groups, or [...] place to sleep or slept in a care home (including now)? No 03/22/2021 Personal Safety Answer Date Recorded Have you ever been in or are you currently in a harmful physical or emotional relationship or is someone making you feel afraid or unsafe? Denies 04/11/2023 Comments No Sex and Gender Information Value Date Recorded Sex Assigned at Not on file Legal Sex Female 6:18 PM METAL SPRAYER Gender Identity Not on file Sexual Orientation Not on file Obstetrics History Last Filed Vital Signs Vital Sign Reading Time Taken Comments Blood Pressure 146/84 10/04/2024 2:04 PM METAL SPRAYER Pulse 88 10/04/2024 2:04 PM METAL SPRAYER Temperature 36.6 C (97.8 F) 10/04/2024 2:04 PM METAL SPRAYER Respiratory Rate 18 10/04/2024 2:04 PM METAL SPRAYER Oxygen Saturation 97% 10/04/2024 2:04 PM METAL SPRAYER Inhaled Oxygen Concentration - - Weight 92.5 kg (204 lb) 10/04/2024 2:04 PM METAL SPRAYER Height 160 cm (5' 3 ) 10/04/2024 2:04 PM METAL SPRAYER Body Mass Index 36.14 10/04/2024 2:04 PM METAL SPRAYER Plan of Treatment Health Maintenance Due Date Last Done Comments Hepatitis B Screening 1962 Zoster Vaccine (1 of 2) 1994 Well Visit 65+ 03/31/2020 03/31/2019, 08/02/2017 Hemoglobin A1C 09/15/2021 03/16/2021, 09/2020, 10/01/2019, Additional history exists Osteoporosis Screening-Bone Density Scan 10/06/2021 10/06/2019, 08/15/2017, 06/18/2014, Additional history exists Albumin Creatinine Ratio, Urine 10/25/2021 , 10/01/2019 Foot Exam 10/25/2021 10/25/2020, 04/2019, 07/31/2018, Additional history exists Lipid Panel 10/25/2021 10/25/2020, 04/2020, 06/02/2019, Additional history exists Depression Screening 08/10/2022 08/10/2021, 07/06/2021, 04/21/2021, Additional history exists Fall Risk Assessment 08/10/2022 08/10/2021, 07/06/2021, 05/31/2021, Additional history exists Dilated Eye Exam 12/06/2022 12/06/2020, 10/2018, 05/20/2018, Additional history exists eGFR 04/11/2024 04/11/2023, 05/26, 03/16/2021, Additional history exists Covid-19 Vaccine (3 - 2023-2 5 season) 2024 12/15/2020, 11/17/2020 Influenza Vaccine (#1) 2024 , 07/06/2020, 07/31/2019, Additional history exists DTaP/Tdap/Td Vaccine (2 - Td or Tdap) 06/16/2024 06/16/2014, 01/15/2004 Colon Cancer Screening-CT Colonography Discontinued 11/17/2015, 11/17/2015, 11/17/2015 Colon Cancer Screening-Colonoscopy Discontinued 11/17/2015, 11/17/2015, 11/17/2015 Colon Cancer Screening-DNA Stool Discontinued 11/17/2015, 11/17/2015, 11/17/2015 Colon Cancer Screening-FIT Discontinued 11/17, 11/17/2015, 11/17/2015 Colon Cancer Screening-FOBT Discontinued 10/26, 11/17/2015, 11/17/2015 Colon Cancer Screening-Sigmoidoscopy Discontinued 11/17/2015, 11/17/2015, 11/17/2015 Colorectal Cancer Screening Discontinued Pneumococcal vaccine 65+ Completed 020, 09/20/2015, 10/22/2013, Additional history exists Procedures Procedure Name Priority Date/Time Associated Diagnosis Comments SCREENING MAMMOGRAM LEFT W CONG UNILATERAL ONLY Schedule Routine, Read Routine (OP Routine) 11/17/2024 2:07 PM METAL SPRAYER Screening mammogram, encounter for EGFR STAT 04/11/2023 7:19 PM CDT HEMOGLOBIN A1C Routine 03/16/2021 6:27 AM CDT DIABETIC EYE EXAM Routine 12/06/2020 LIPID PANEL Routine 10/25/2020 12:00 PM METAL SPRAYER Annual physical exam ALBUMIN CREATININE RATIO, URINE Routine 10/25/2020 12:00 PM METAL SPRAYER Type 2 diabetes mellitus with other circulatory complication, without long-term current use of insulin (HCC) DEXA AXIAL SKELETON BONE DENSITY 1 OR MORE SITES Schedule Routine, Read Routine (OP Routine) 10/06/2019 1:00 PM METAL SPRAYER Asymptomatic menopause COLONOSCOPY IMAGES 11/17/2015 from Last 3 Months or Most Recently Relevant to Health Maintenance Results * Screening Mammogram Left W Cong Unilateral Only (11/17/2024 2:07 PM METAL SPRAYER) Anatomical Region Laterality Modality Breast Left Mammography Narrative 11/19/2024 11:42 AM METAL SPRAYER Mammogram Technique: Left Breast Digital Breast Tomosynthesis, Unilateral C-view 2D Screening mammogram. Views obtained: left craniocaudal and left mediolateral oblique. Computer Aided Detection was performed. Mammogram Findings: The present examination has been compared to prior imaging studies performed at [facility] on 09/20/2021, 09/21/2022 and 11/16/2023. There [...] prior imaging studies performed at [facility] on 09/20/2021, 09/21/2022 and 11/16/2023. There are scattered areas of fibroglandular density. There is no suspicious abnormality in the left breast. Patient status post contralateral mastectomy for personal history ofbreast cancer. Impression: There is no mammographic evidence of malignancy. Annual screening mammography is recommended. OVERALL FINAL ASSESSMENT: BI-RADS CATEGORY 1: Negative. Self Screening Mammogram IMG MAMMO PROCEDURES Fi nal Result * eGFR (04/11/2023 7:19 PM CDT) eGFR 83 mL/min/1. 73 m2 [facility] MORRIS ([place]) Comment: Interpretive Data Reference Interval Normal >/= [...] BLOOD ORDERABLES Final R esult CHUCK MORRIS ([place]) [address] [facility] [place] [address] * (ABNORMAL) Hemoglobin A1c (03/16/2021 6:27 AM CDT) Hgb A1C 8.1(H) 4.0 - 5.6 % CHUCK CAPELLAN Estimated Average Glucose 186 mg/dL [facility]UCK CAPELLAN Comment: The ADA recommends reporting an estimated Average Glucose (eAG) with all Hemoglobin A1c results using the equation derived from a study of 507 normal and diabetic adults. Minority populations were underrepresented and children were not included. (Diabetes Care 31:6171-7307, 2008). The eAG is not equivalent to a fasting glucose. Blood specimen (specimen) 03/16/2021 6:27 AM CDT 03/16/2021 7:21 AM CDT Heike Lau NP LAB BLOOD ORDERABLES Final R esult [facility]UCK CAPELLAN [address] Department [place] [address] * Diabetic Eye Exam (12/06/2020) Result [facility] Historical Provider HEALTH MAINTENANCE Edited Result - Final * Albumin Creatinine Ratio, Urine (10/25/2020 12:00 PM METAL SPRAYER) Albumin Ur 25.3 mg/L CHUCK CAPELLAN Comment: Interpretive Data No reference range established. Current interpretive data was last revised 2019. Creatinine Ur 108.3 mg/dL CHUCK CAPELLAN Comment: Interpretive Data No reference range established. Current interpretive data was last revised 2019. Albumin Creatinine Ratio, Ur 23 1 - 29 mg/g CHUCK Urine 10/25/2020 12:0 0 PM METAL SPRAYER 10/25/2020 4:42 PM METAL SPRAYER Bradley Rubin MD LAB URINE ORDERABLES Tangela l Result [facility]UCK [facility] [id number] Department [place] [address] * (ABNORMAL) Lipid panel (10/25/2020 12:00 PM METAL SPRAYER) Cholesterol 216(H) 30 - 199 mg/dL CHUCK Comment: Interpretive Data Ages < or = [...] on 2018. Triglycerides 136 <=149 mg/dL CHUCK Comment: Interpretive Data Ages < or = [...] Pediatrics 2011;128:S213 2. NCEP Expert Panel. Circulation 2003;110:227 Current Interpretive Data was last revised on 2018. HDL 60 >=40 mg/dL CHUCK Comment: Interpretive Data Ages < or = 19 years Acceptable: >45 mg/dL Borderline low: 40-45 mg/dL Low: <40 mg/dL Ages > or = 20 years Desirable: >or= 60 mg/dL Low: <40 mg/dL Literature References: 1. Expert Panel on Integrated Guidelines for Cardiovascular Health and Risk Reduction in Children and Adolescents. Pediatrics 2011;128:S213 2. NCEP Expert Panel. Circulation 2003;110:227 Current Interpretive Data was last revised on 2018. LDL, calculated 129 <=129 mg/dL CHUCK Comment: Interpretive Data Ages < or = [...] CAPELLAN Blood specimen (specimen) 10/25/2020 12:00 PM METAL SPRAYER 10/25/2020 4:42 PM METAL SPRAYER Bradley Rubin MD LAB BLOOD ORDERABLES Tangela l Result CHUCK [id number] [address] Department [place] [address] * Dexa Axial Skeleton Bone Density 1 or 2 Site (10/06/2019 1:00 PM METAL SPRAYER) Anatomical Region Laterality Modality Body N/A Other 10/06/2019 1:11 PM METAL SPRAYER Impressions 10/06/2019 1:15 PM METAL SPRAYER Normal bone mineral density of the spine. Bone mineral density of the left hip falls within osteopenia range. In comparison to previous examination, there is increased bone mineral density of the spine and left hip. Electronically signed by: Janeen Riojas M.D. Narrative 10/06/2019 1:15 PM METAL SPRAYER Examination: Bone densitometry of the lumbar spine and the left hip Order Date: 10/06/2019 12:30 PM History: Osteoporosis screening. Comparison: 08/15/2017, carcinoma of the breasts 1919 9. Findings: The bone densitometry of the [...] screening. Comparison: 08/15/2017, carcinoma of the breasts 1919 9. Findings: The bone densitometry of the [...] Ordered by an unspecified provider. Historical Provider MD GI PROCEDURE ORDERABLES F inal Result from Last 3 Months or Most Recently Relevant to Health Maintenance Insurance AETNA MEDICARE [facility]OLD [facility] RE[facility] UHC MEDICARE ADVANTAGE [facility] GOLD REF AETNA MEDICARE GOLD AETNA MEDICARE GOLD Advance Directives For more information, please contact: [phone] Documents on File Type Date Recorded Patient Multiple Sclerosis Nurse Expl anation ADVANCE DIRECTIVE 03/18/2021 10:38 AM JENNIFER R OF ASSURANCE ASSISTANT-MEDICAL ADVANCE DIRECTIVE 08/10/2017 9:07 AM JENNIFER R OF ASSURANCE ASSISTANT * Full Code (Latest Code Status on File) Date Activated Date Inactivated Comments 03/15/2021 9:40 PM 03/17/2021 7:03 PM Care Teams Centrifuge Separator Tender Relationship Specialty Start Date End Date Brijesh Cardenas MD PCP - General Family Medicine 07/12/22 Torri Johnson, PT Physical Therapist Physical Therapy 04/18/18 Dustin Tim, PT Physical Therapist Physical Therapy 04/26/18 Jong Reeves, COAL AND ASH SUPERVISOR Physical Therapist Physical Therapy 05/08/18 Miscellaneous, Not In File 03/17/21
--- OUTSIDE RECORDS SUMMARY | 2024-12-17 08:55 | XMS_ITS | Encounter Summary ---
Author Organization [facility] Address [address] [place] [address] Care Team Providers Care Wastewater Engineer Name Role Phone Smith Islas MD Primary Care Provider [phone] Encounter Details Date Type Department Care Team (Late st Contact Info) Description 05/29/2007 Orders Only [facility] Internal Medicine [address] [address] Smith Islas MD [address] [place] [phone] Social History Tobacco Use Types Packs/Day Years Used Date Smoking Tobacco: Never Assessed Comments Unknown Sex and Gender Information Value Date Recorded Sex Assigned at Not on file Legal Sex Female 3:30 AM FIELD SERVICE MANAGER Gender Identity Not on file Sexual Orientation Not on file documented as of this encounter Progress Notes * Smith Islas MD - 02/07/2008 4:13 PM CDT WEIGHT: 207lbs BLOOD PRESSURE: 140/80 Right Arm Sitting TEMPERATURE: 36.39??c Oral NURSE NAME: Keily Lloyd R TOBACCO USE Patient does not currently use tobacco. CHIEF COMPLAINT Lt. eye red and painful, sinus headache. HISTORY: bleeding under eye, taking alleve for djd, had similar episode a few weeks ago, bp stable,inc sinus recent, started flonase again. PHYSICAL EXAMINATION: EYES: left subconjunctival hemm PUPILS: Pupils equal and normally reactive to light and accommodation. FUNDUSCOPIC EXAM: Ophthalmoscopic examination shows the fundi to be normal. The optic disc are flatand of normal size. There are no hemorrhages or exudates. EARS, NOSE, MOUTH AND THROAT: EARS: EFFUSION PRESENT BILATERALLY, TYMPANIC MEMBRANES INFLAMED BILATERALLY. ORAL: Inspection of gums, lips, palate, and teeth normal. No scars, lesions, or masses. Oral mucosaunremarkable with non-inflamed posterior pharynx. NECK/THYROID: Trachea midline. No thyroid enlargement, tenderness, or mass. No supraclavicular or cervical adenopathy. RESPIRATORY: Clear to auscultation and percussion. Normal respiratory effort. CARDIOVASCULAR: CARDIAC: Regular rhythm. No murmurs, rubs, or gallops. EDEMA/VARICOSITIES OF EXTREMITIES: No edema or varicosities. ASSESSMENT/PLAN: 250.00-DM II CONTROLLED cont med, fu lab 461.9-SINUSITIS UNSPECIFIED cont flonase for now reassess 368.10-VISUAL DISTURBANCES no rx, hold alleve, recheck bp RETURN VISIT : Instructed to call if not improving. Electronically Signed by: Smith Islas MD on Sunday, May 29, 2007 documented in this encounter Plan of Treatment Not on file documented as of this encounter Visit Diagnoses Not on filedocumented in this encounter Care Teams Wastewater Engineer Relationship Specialty Start Date End Date Smith Islas MD [address] [place] [phone] PCP - General 10/22/03 07/11/15 documented as of this encounter
--- OUTSIDE RECORDS SUMMARY | 2024-12-17 08:55 | XMS_ITS | Clinical Summary ---
Author Organization [facility] [employer] Address [address] [place] [address] Care Team Providers Care General Cargo Clerk Name Role Phone Unavailable Primary Care Provider Unavailabl e Source Comments [facility] [employer],non-owned Affiliates and Associated Physician Practices is amultiple site organization consisting of ambulatory clinics and hospital sitesin [place], [place] and [place]. This disclosure is being madepursuant to the Care Everywhere program and may not contain all information available regarding this patient. Last updated 18.[facility] [employer] Social History Tobacco Use Types Packs/Day Years Used Date Smoking Tobacco: Never Assessed Sex and Gender Information Value Date Recorded Sex Assigned at Not on file Gender Identity Not on file Sexual Orientation Not on file Plan of Treatment Health Maintenance Due Date Last Done Comments BONE DENSITY TESTING 1944 DTAP/TDAP/TD VACCINES (1 - Tdap) 12/15/1963 PNEUMOCOCCAL VACCINE 50+ (1 of 1 - PCV) 1994 ZOSTER VACCINE (1 of 2) 1994 Respiratory Syncytial Virus (RSV) Vaccine Pt: or over 60 yrs (1 - 1-dose 75+ series) 12/15/2019 COVID-19 VACCINE ( - 2023-2 5 season) 2024 INFLUENZA VACCINE (#1) 2024 DEPRESSION SCREENING 09/24/2024 MEDICARE AWV CALENDAR YEAR 2024 HEPATITIS B VACCINE Aged Out No longe r eligible based on patient's age to complete this topic HIB VACCINE Aged Out No longer eligi ble based on patient's age to complete this topic HPV VACCINE Aged Out No longer eligi ble based on patient's age to complete this topic MENINGOCOCCAL (Group B) VACC INE SHARED DECISION-MAKING Aged Out No longer eligibl e based on patient's age to complete this topic MENINGOCOCCAL GROUPS A/C/Y/W VACCINE Aged Out No longer eligible b ased on patient's age to complete this topic
--- OUTSIDE RECORDS SUMMARY | 2024-12-17 08:55 | XMS_ITS | Encounter Summary ---
Author Organization [facility] Address [address] [place] [address] Care Team Providers Care Electrical Power Station Technician Name Role Phone Smith Islas MD Primary Care Provider [phone] Encounter Details Date Type Department Care Team (Late st Contact Info) Description 07/24/2007 Outpatient Historical [facility] Internal Medicine [address] [address] Smith Islas MD [address] [place] [phone] Social History Tobacco Use Types Packs/Day Years Used Date Smoking Tobacco: Never Assessed Comments Unknown Sex and Gender Information Value Date Recorded Sex Assigned at Not on file Legal Sex Female 3:30 AM SHOPPER'S AIDE Gender Identity Not on file Sexual Orientation Not on file documented as of this encounter Last Filed Vital Signs Vital Sign Reading Time Taken Comments Blood Pressure 140/80 07/24/2007 10:15 AM CDT Pulse - - Temperature 36.5 C (97.7 F) 07/24/2007 10:15 AM CDT Respiratory Rate - - Oxygen Saturation - - Inhaled Oxygen Concentration - - Weight 95.3 kg (210 lb) 07/24/2007 10:15 AM CDT Height - - Body Mass Index 34.95 10/14/2003 10:30 AM SHOPPER'S AIDE documented in this encounter Plan of Treatment Not on file documented as of this encounter Visit Diagnoses Not on filedocumented in this encounter Care Teams Electrical Power Station Technician Relationship Specialty Start Date End Date Smith Islas MD [address] [place] [phone] PCP - General 10/22/03 07/11/15 documented as of this encounter
--- OUTSIDE RECORDS SUMMARY | 2024-12-17 08:55 | XMS_ITS | Encounter Summary ---
Author Organization [facility] Healthcare Address [address] [place] [address] Care Team Providers Care Surgical Consultant Name Role Phone Radhika Arredondo MD Primary Care Provider [phone] Torri Johnson PT Unavailable Unavail able Dustin Tim PT Unavailable Unavailab Jong Brunson GLASS GRINDER Unavailable Unavaila Moriah Zapien NP Primary Care Provider +- [phone] Bradley Rubin MD Primary Care Provider + [phone] Miscellaneous, Not In File Unavailable Unava ilTano Cates LCSW Unavailable UnavailMaryam Sargent RN Unavailable [phone] Brijesh Cardenas MD Primary Care Provider + [phone] Encounter Details Date Type Department Care Team (Late st Contact Info) Description 10/14/2019 Telephone [place] [id number] [address] [id number] Noelle Robison RN Social History Tobacco Use Types Packs/Day Years Used Date Smoking Tobacco: Former Cigarettes 1 15 Smokeless Tobacco: Never Comments:quit 30 years ago Alcohol Use Standard Drinks/Week Comments No 0 (1 standard drink = 0.6 oz pur e alcohol) PHQ-2 Answer Date Recorded PHQ-2 Score 0 05/16/2019 Comments Unknown Sex and Gender Information Value Date Recorded Sex Assigned at Not on file Legal Sex Female 6:18 PM EXCEL ANALYST Gender Identity Not on file Sexual Orientation Not on file documented as of this encounter Plan of Treatment Not on file documented as of this encounter Visit Diagnoses Not on filedocumented in this encounter Additional Health Concerns Infection Onset Date Last Indicated Resolved Time COVID: Suspected 03/15/2021 03/15/2021 03/15/2021 3:51 PM CDT COVID: Suspected 03/15/2021 03/15/2021 03/15/2021 7:08 PM CDT COVID: Suspected 10/26/2023 10/26/2023 10/26/2023 7:11 PM EXCEL ANALYST documented as of this encounter Care Teams Surgical Consultant Relationship Specialty Start Date End Date Radhika Arredondo MD [address] [facility] [address] [address] PCP - General Internal Medicine 10/01/17 11/26/19 Moriah Rodriguez NP PCP - General 11/27/19 08/15/20 Bradley Rubin MD [address] [place] [address] PCP - General Family Medicine 08/16/20 07/11/22 Brijesh Cardenas MD [address] [place] [address] [address] [place] [address] PCP - General Family Medicine 07/12/22 Torri Johnson, PT Physical Therapist Physical Therapy 04/18/18 Dustin Tim, PT Physical Therapist Physical Therapy 04/26/18 Jong Reeves, GLASS GRINDER Physical Therapist Physical Therapy 05/08/18 Miscellaneous, Not In File 03/17/21 Tano Purcell LCSW Home Economics Expert 03/22/21 01/17/22 Maryam Cline, YAMILA [address] [place] [address] [address] Jewel Gauger 07/04/21 07/27/21 documented as of this encounter
--- OUTSIDE RECORDS SUMMARY | 2024-12-17 08:55 | XMS_ITS | Data Portability ---
Author Organization [place] - [facility], [employer] Address [address] [place] [address] Assessment Encounter Date Assessment Date Assessment LastModified by Organization Details LastModified Time 11/25/2019 11/25/2019 Medication Changes CRYSTAL obtained. Records requested. Labs obtained at visit. Signs and symptoms of when to seek further care reviewed with patient. Patient to follow up with primary care provider or return to clinic for any worsening signs and symptoms. Always present to ER or Urgent Care with any progression of/alarming symptoms, significant changes in symptoms or any concerning or urgent matters. Patient verbalized agreement and understanding of treatment plan. F/U 4 weeks, sooner if needed Not available 11/25/2019 15:10:15 12/19/2019 12/19/2019 Medication Changes Signs and symptoms of when to seek further care reviewed with patient. Patient to follow up with primary care provider or return to clinic for any worsening signs and symptoms. Always present to ER or Urgent Care with any progression of/alarming symptoms, significant changes in symptoms or any concerning or urgent matters. Patient verbalized agreement and understanding of treatment plan. F/U 4 weeks, sooner if needed Not available 12/20/2019 14:57:17 03/09/2020 03/09/2020 Medication Changes Diflucan 150 mg Labs ordered Signs and symptoms of when to seek further care reviewed with patient. Patient to follow up with primary care provider or return to clinic for any worsening signs and symptoms. Always present to ER or Urgent Care with any progression of/alarming symptoms, significant changes in symptoms or any concerning or urgent matters. Patient verbalized agreement and understanding of treatment plan. F/U 12 weeks, sooner if needed [email or web address] Not available 03/09/2020 13:32:16 07/06/2020 07/06/2020 Medication Changes Labs obtained to check levels. Signs and symptoms of when to seek further care reviewed with patient. Patient to follow up with primary care provider or return to clinic for any worsening signs and symptoms. Always present to ER or Urgent Care with any progression of/alarming symptoms, significant changes in symptoms or any concerning or urgent matters. Patient verbalized agreement and understanding of treatment plan. F/U 12 weeks, sooner if needed [email or web address] Not available 07/03/2020 13:29:36 Plan of Treatment Reminders Order Date Submit Date Provider Last Modified By Organization Details Last Modified Time Details Appointments None recorded. Lab hemoglobin A1c + average glucose, QN, blood 2019 LAURA Not available 0 17:33:43 CBC w/ diff 2019 LAURA Not available 0 17:33:43 CMP, serum or plasma 2019 LAURA Not available 0 14:51:51 magnesium, blood 2019 LAURA Not available 0 17:33:43 TSH + free T4, serum 2019 LAURA Not available 0 17:33:43 lipid panel, blood 2019 LAURA Not available 0 17:33:43 hemoglobin A1c + average glucose, QN, blood 2019 020 [email or web address] Not available 0 08:35:56 CBC w/ diff 2019 [email or web address] Not available 0 08:35:56 CMP, serum or plasma 2019 020 [email or web address] Not available 0 08:35:57 magnesium, blood 2019 020 [email or web address] Not available 0 08:35:57 TSH + free T4, serum 2019 [email or web address] Not available 0 08:35:57 lipid panel, blood 2019 [email or web address] Not available 0 08:35:57 hemoglobin A1c + average glucose, QN, blood 2019 020 LAURA Not available 0 13:30:40 CBC w/ diff 2019 LAURA Not available 0 13:30:39 CMP, serum or plasma 2019 LAURA Not available 0 10:41:37 magnesium, blood 2019 LAURA Not available 0 13:30:40 lipid panel, blood 2019 LAURA Not available 0 13:30:39 vitamin B12 + folate, serum or blood 2019 LAURA Not available 0 10:41:39 iron + TIBC + ferritin, serum 2019 LAURA Not available 0 13:30:40 TSH, serum, reflex free T4 2019 LAURA Not available 0 13:30:40 vitamin D, 25-hydroxy, total, serum 2019 LAURA Not available 0 10:41:40 Referral None recorded. Procedures None recorded. Surgeries None recorded. Imaging None recorded. Medication Orders Diflucan 150 mg tablet 2019 [id number], [address], [place], [place], [id number], 0 13:28:20 Patient TargetsNo targets recorded. Patient Instructions Encounter Date Encounter Id Patient Instructions Last Modified By Organization Details Last Modified Time 12/19/2019 [id number] diabetes and nutrition education Not available 12/20/2019 15:02:42 Reason for Referral None Reported. Results Created Date Observation Date Name Description Value Unit Range Abnormal Flag Note LastModifiedBy Organization Detail LastModifiedTime 11/25/19 20 11/26/2019 lipid panel , serum cholesterol, total 199 mg/dL <200 normal Not Available [facility] [address] [place], [address], 11/26/2019 10:41:36 11/25/19 20 11/26/2019 lipid panel , serum HDL cholesterol 63 mg/dL > or = 50 normal Not Available [address], [address], 11/26/2019 10:41:36 11/25/19 20 11/26/2019 lipid panel , serum triglyceride s 133 mg/dL <150 normal Not Available [address], [address], 11/26/2019 10:41:36 11/25/19 20 11/26/2019 lipid panel , serum LDL-choleste rol 111 mg/dL _(susy c) high Refer ence range : <100 Parul able range <100 mg/dL for prima ry preve ntion ; <70 mg/dL for patie nts with CHD or diabe tic patie nts with > or = 2 CHD risk facto rs. LDL-C is now calcu lated using the [place] n-Hop kins calcu barb n, which is a valid ated novel crescencioo d juana wilcox r accur acy than the Fried teena equat ion in the estim ation of LDL-C . Carolina marin SS et al. JESSICA. 2013; 310(1 9): 2061- 2068 (http ://ed ucati on.Qu [employer]. com/f aq/FA Q164) Not Available [address], [address], 11/26/2019 10:41:36 11/25/19 20 11/26/2019 lipid panel , serum chol/HDLC ratio 3.2 (calc ) <5.0 normal Not Available [address], [address], 11/26/2019 10:41:36 11/25/19 20 11/26/2019 lipid panel , serum non HDL cholesterol 136 mg/dL _(susy c) <130 high For patie nts with diabe komal plus 1 major ASCVD risk facto r, treat ing to a non-H DL-C goal of <100 mg/dL (LDL- C of <70 mg/dL ) is kayla ayalao n. Not Available [address], [address], 11/26/2019 10:41:36 11/25/19 20 11/26/2019 magne sium, serum or plasm a magnesium 1.6 mg/dL 1.5-2. 5 normal Not Available [address], [address], 11/26/2019 10:41:36 11/25/1911/26/2019 iron + total iron- yana ng capac ity (TIBC ), serum iron, total 56 mcg/d L 45-160 normal Not Available [address], [address], 11/26/2019 10:41:37 11/25/1911/26/2019 iron + total iron- yana ng capac ity (TIBC ), serum iron binding capacity 313 mcg/d L_(ca lc) 250-45 0 normal Not Available [address], [address], 11/26/2019 10:41:37 11/25/1911/26/2019 iron + total iron- yana ng capac ity (TIBC ), serum % saturation 18 %_(ca lc) 16-45 normal Not Available [address], [address], 11/26/2019 10:41:37 11/25/1911/26/2019 CMP, serum or plasm a glucose 137 mg/dL 65-139 normal Non-f astin g refer ence inter usama Not Available [address] [place], [address], 11/26/2019 10:41:37 11/25/19 20 11/26/2019 CMP, serum or plasm a urea nitrogen (BUN) 16 mg/dL 7-25 normal Not Available [address], [address], 11/26/2019 10:41:37 11/25/19 20 11/26/2019 CMP, serum or plasm a creatinine 0.60 mg/dL 0.60-0 .93 normal For patie nts >49 years of age, the refer ence limit for Creat inine is appro ximat yandel 13% highe r for peopl e ident ified as Afric an-Am ayah n. Not Available [address] [place], [address], 11/26/2019 10:41:37 11/25/1911/26/2019 CMP, serum or plasm a eGFR non-afr. [place] 90 mL/mi n/1.7 3m2 > or = 60 normal Not Available [address] [address] [place], [address], 11/26/2019 10:41:37 11/25/1911/26/2019 CMP, serum or plasm a eGFR 104 mL/mi n/1.7 3m2 > or = 60 normal Not Available [address], [address], 11/26/2019 10:41:37 11/25/1911/26/2019 CMP, serum or plasm a BUN/creatini ne ratio NOT APPLIC ABLE (calc ) 6-22 Not Available [facility] [address] [address] [place], [address], 11/26/2019 10:41:37 11/25/1911/26/2019 CMP, serum or plasm a sodium 141 mmol/ L 135-14 6 normal Not Available [address] [address] [place], [address], 11/26/2019 10:41:37 11/25/1911/26/2019 CMP, serum or plasm a potassium 4.5 mmol/ L 3.5-5. 3 normal Not Available [address], [address], 11/26/2019 10:41:37 11/25/1911/26/2019 CMP, serum or plasm a chloride 108 mmol/ L 98-110 normal Not Available [address], [address], 11/26/2019 10:41:37 11/25/1911/26/2019 CMP, serum or plasm a carbon dioxide 21 mmol/ L 20-32 normal Not Available [address], [address], 11/26/2019 10:41:37 11/25/1911/26/2019 CMP, serum or plasm a calcium 9.8 mg/dL 8.6-10 .4 normal Not Available [address], [address], 11/26/2019 10:41:37 11/25/1911/26/2019 CMP, serum or plasm a protein, total 7.2 g/dL 6.1-8. 1 normal Not Available [address], [address], 11/26/2019 10:41:37 11/25/1911/26/2019 CMP, serum or plasm a albumin 4.3 g/dL 3.6-5. 1 normal Not Available [address], [address], 11/26/2019 10:41:37 11/25/1911/26/2019 CMP, serum or plasm a globulin 2.9 g/dL_ (calc ) 1.9-3. 7 normal Not Available [address], [address], 11/26/2019 10:41:37 11/25/1911/26/2019 CMP, serum or plasm a albumin/glob ulin ratio 1.5 (calc ) 1.0-2. 5 normal Not Available [address], [address], 11/26/2019 10:41:37 11/25/19 20 11/26/2019 CMP, serum or plasm a bilirubin, total 0.8 mg/dL 0.2-1. 2 normal Not Available [address], [address], 11/26/2019 10:41:37 11/25/19 20 11/26/2019 CMP, serum or plasm a alkaline phosphatase 137 U/L 37-153 normal Not Available [facility] [address], [address], 11/26/2019 10:41:37 11/25/19 20 11/26/2019 CMP, serum or plasm a AST 12 U/L 10-35 normal Not Available [address], [address], 11/26/2019 10:41:37 11/25/19 20 11/26/2019 CMP, serum or plasm a ALT 13 U/L 6-29 normal Not Available [address], [address], 11/26/2019 10:41:37 11/25/1911/26/2019 CBC w/ auto diff white blood cell count 6.7 thous and/u L 3.8-10 .8 normal Not Available [address], [address], 11/26/2019 10:41:38 11/25/1911/26/2019 CBC w/ auto diff red blood cell count 5.30 cari on/uL 3.80-5 .10 high Not Available [address], [address], 11/26/2019 10:41:38 11/25/19 20 11/26/2019 CBC w/ auto diff hemoglobin 14.5 g/dL 11.7-1 5.5 normal Not Available [address], [address], 11/26/2019 10:41:38 11/25/19 20 11/26/2019 CBC w/ auto diff hematocrit 43.4 % 35.0-4 5.0 normal Not Available [address], [address], 11/26/2019 10:41:38 11/25/19 20 11/26/2019 CBC w/ auto diff MCV 81.9 fL 80.0-1 00.0 normal Not Available [address], [address], 11/26/2019 10:41:38 11/25/19 20 11/26/2019 CBC w/ auto diff MCH 27.4 pg 27.0-3 3.0 normal Not Available [address], [address], 11/26/2019 10:41:38 11/25/1911/26/2019 CBC w/ auto diff MCHC 33.4 g/dL 32.0-3 6.0 normal Not Available [address], [address], 11/26/2019 10:41:38 11/25/19 20 11/26/2019 CBC w/ auto diff RDW 13.8 % 11.0-1 5.0 normal Not Available [address], [address], 11/26/2019 10:41:38 11/25/19 20 11/26/2019 CBC w/ auto diff platelet count 243 thous and/u L 140-40 0 normal Not Available [address], [address], 11/26/2019 10:41:38 11/25/19 20 11/26/2019 CBC w/ auto diff MPV 10.7 fL 7.5-12 .5 normal Not Available [address], [address], 11/26/2019 10:41:38 11/25/19 20 11/26/2019 CBC w/ auto diff absolute neutrophils 3337 cells /uL 1500-7 800 normal Not Available [address], [address], 11/26/2019 10:41:38 11/25/19 20 11/26/2019 CBC w/ auto diff absolute lymphocytes 2385 cells /uL 850-39 00 normal Not Available [address], [address], 11/26/2019 10:41:38 11/25/19 20 11/26/2019 CBC w/ auto diff absolute monocytes 610 cells /uL 200-95 0 normal Not Available [address], [address], 11/26/2019 10:41:38 11/25/19 20 11/26/2019 CBC w/ auto diff absolute eosinophils 248 cells /uL 15-500 normal Not Available [address], [address], 11/26/2019 10:41:38 11/25/19 20 11/26/2019 CBC w/ auto diff absolute basophils 121 cells /uL 0-200 normal Not Available [address], [address], 11/26/2019 10:41:38 11/25/1911/26/2019 CBC w/ auto diff neutrophils 49.8 % normal Not Available [address], [address], 11/26/2019 10:41:38 11/25/19 20 11/26/2019 CBC w/ auto diff lymphocytes 35.6 % normal Not Available [address], [address], 11/26/2019 10:41:38 11/25/1911/26/2019 CBC w/ auto diff monocytes 9.1 % normal Not Available [address], [address], 11/26/2019 10:41:38 11/25/19 20 11/26/2019 CBC w/ auto diff eosinophils 3.7 % normal Not Available [address], [address], 11/26/2019 10:41:38 11/25/1911/26/2019 CBC w/ auto diff basophils 1.8 % normal Not Available [address], [address], 11/26/2019 10:41:38 11/25/19 20 11/26/2019 nica tin, serum or plasm a ferritin 73 NG/mL 16-288 normal Not Available [address], [address], 11/26/2019 10:41:39 11/25/1911/26/2019 vitam in B12 + folat e, serum or blood vitamin B12 474 pg/mL 200-11 00 normal Not Available [address], [address], 11/26/2019 10:41:39 11/25/1911/26/2019 vitam in B12 + folat e, serum or blood folate, serum 8.8 NG/mL normal Refer ence Range Low: <3.4 Borde rline : 3.4-5 .4 Dominique l: >5.4 Not Available [address], [address], 11/26/2019 10:41:39 11/25/1911/26/2019 TSH, serum or plasm a TSH w/reflex to FT4 3.05 mIU/L 0.40-4 .50 normal Not Available [facility] [address] [address] [place], [address], 11/26/2019 10:41:40 11/25/1911/26/2019 vitam in D, 25-hy droxy , total , serum vitamin D,25-oh,tota l,ia 17 NG/mL 30-100 low Vitam in D Statu s 25-OH Vitam in D: Defic iency : <20 ng/mL Insuf ficie ncy: 20 - 29 ng/mL Optim al: > or = 30 ng/mL For 25-OH Vitam in D testi ng on patie nts on D2-carvajal pplem entat ion and patie nts for whom quant itati on of D2 and D3 fract ions is requi red, the [facility](TM ) 25-OH VIT D, (D2,D 3), LC/MS /MS is recom michael d: order code 92985 (donavon ents >2yrs ). For more infor brett marin on this test, go to: http: //malena rodriguez stdia gnost ics.c om/fa q/FAQ 163 (This link is being provi ded for infor brett nal/e ducat ional purpo ses only. ) Not Available [facility] [address] [address] [address], [place], [address], 11/26/2019 10:41:40 11/25/1911/26/2019 HbA1c (hemo globi n A1c), blood hemoglobin A1C 8.0 %_of_ total _HGB <5.7 high For someo ne witho ut known diabe komal, a hemog lobin A1c value of 6.5% or great er indic ates that they may have diabe komal and this shoul d be confi rmed with a follo w-up test. For someo ne with known diabe komal, a value <7% indic ates that their diabe komal is well contr olled and a value great er than or equal to 7% indic ates subop timal contr ol. A1c targe ts shoul d be indiv idual ized based on durat ion of diabe komal, age, comor bid condi tions , and other consi derat ions. Curre ntly, no conse nsus exist s raul jain use of hemog lobin A1c for diagn osis of diabe komal for child josi. Not Available [facility] [address] [place], [address], 11/26/2019 10:41:41 11/25/19 20 11/26/2019 HbA1c (hemo globi n A1c), blood EAG (mg/dL) 183 (calc ) Not Available [facility] [address], [address], 11/26/2019 10:41:41 11/25/19 20 11/26/2019 HbA1c (hemo globi n A1c), blood EAG (mmol/L) 10.1 (calc ) Not Available [address], [address], 11/26/2019 10:41:41 12/08/19 20 12/09/2019 CMP, serum or plasm a glucose 159 mg/dL 65-99 high Fasti ng refer ence inter usama For someo ne witho ut known diabe komal, a gluco se value >125 mg/dL indic ates that they may have diabe komal and this shoul d be confi rmed with a follo w-up test. Not Available [facility] [address], [address], 12/09/2019 02:32:46 12/08/1912/09/2019 CMP, serum or plasm a urea nitrogen (BUN) 13 mg/dL 7-25 normal Not Available [facility] [address], [address], 12/09/2019 02:32:46 12/08/1912/09/2019 CMP, serum or plasm a creatinine 0.64 mg/dL 0.60-0 .93 normal For patie nts >49 years of age, the refer ence limit for Creat inine is appro ledat yandel 13% highe r for peopl e ident ified as Afric an-Am ayah n. Not Available [address], [address], 12/09/2019 02:32:46 12/08/19 20 12/09/2019 CMP, serum or plasm a eGFR non-afr. [place]an 88 mL/mi n/1.7 3m2 > or = 60 normal Not Available [address], [address], 12/09/2019 02:32:46 12/08/19 20 12/09/2019 CMP, serum or plasm a eGFR 102 mL/mi n/1.7 3m2 > or = 60 normal Not Available [address], [address], 12/09/2019 02:32:46 12/08/19 20 12/09/2019 CMP, serum or plasm a BUN/creatini ne ratio NOT APPLIC ABLE (calc ) 6-22 Not Available [address], [address], 12/09/2019 02:32:46 12/08/1912/09/2019 CMP, serum or plasm a sodium 137 mmol/ L 135-14 6 normal Not Available [address], [address], 12/09/2019 02:32:46 12/08/1912/09/2019 CMP, serum or plasm a potassium 4.5 mmol/ L 3.5-5. 3 normal Not Available [address], [address], 12/09/2019 02:32:46 12/08/1912/09/2019 CMP, serum or plasm a chloride 104 mmol/ L 98-110 normal Not Available [address], [address], 12/09/2019 02:32:46 12/08/19 20 12/09/2019 CMP, serum or plasm a carbon dioxide 22 mmol/ L 20-32 normal Not Available [address], [address], 12/09/2019 02:32:46 12/08/19 20 12/09/2019 CMP, serum or plasm a calcium 9.7 mg/dL 8.6-10 .4 normal Not Available [address], [address], 12/09/2019 02:32:46 12/08/1912/09/2019 CMP, serum or plasm a protein, total 7.1 g/dL 6.1-8. 1 normal Not Available [address], [address], 12/09/2019 02:32:46 12/08/19 20 12/09/2019 CMP, serum or plasm a albumin 4.0 g/dL 3.6-5. 1 normal Not Available [address], [address], 12/09/2019 02:32:46 12/08/19 20 12/09/2019 CMP, serum or plasm a globulin 3.1 g/dL_ (calc ) 1.9-3. 7 normal Not Available [address], [address], 12/09/2019 02:32:46 12/08/1912/09/2019 CMP, serum or plasm a albumin/glob ulin ratio 1.3 (calc ) 1.0-2. 5 normal Not Available [address], [address], 12/09/2019 02:32:46 12/08/19 20 12/09/2019 CMP, serum or plasm a bilirubin, total 0.8 mg/dL 0.2-1. 2 normal Not Available [address] [address] [place], [address], 12/09/2019 02:32:46 12/08/1912/09/2019 CMP, serum or plasm a alkaline phosphatase 125 U/L 37-153 normal Not Available [facility] [address] [address] [place], [address], 12/09/2019 02:32:46 12/08/1912/09/2019 CMP, serum or plasm a AST 16 U/L 10-35 normal Not Available [address] [address] [place], [address], 12/09/2019 02:32:46 12/08/1912/09/2019 CMP, serum or plasm a ALT 12 U/L 6-29 normal Not Available [address], [address], 12/09/2019 02:32:46 04/06/2004/10/2020 lipid panel , serum cholesterol, total 172 mg/dL <200 normal Not Available [address], [address], 04/10/2020 02:05:17 04/06/2004/10/2020 lipid panel , serum HDL cholesterol 60 mg/dL > or = 50 normal Not Available [address] [place], [address], 04/10/2020 02:05:17 04/06/2004/10/2020 lipid panel , serum triglyceride s 153 mg/dL <150 high Not Available [address] [place], [address], 04/10/2020 02:05:17 04/06/2004/10/2020 lipid panel , serum LDL-choleste rol 87 mg/dL _(susy c) normal Refer ence range : <100 Parul able range <100 mg/dL for prima ry preve ntion ; <70 mg/dL for patie nts with CHD or diabe tic patie nts with > or = 2 CHD risk facto rs. LDL-C is now calcu lated using the [place] n-Hop kins colin day n, which is a valid ated novel ellen mullins accur acy than the Fried teena equat ion in the estim ation of LDL-C . Carolina marin SS et al. JESSICA. 2013; 310(1 9): 2061- 2068 (http ://ed ucati on.Qu estDi BeDos. com/f aq/FA Q164) Not Available [facility] [address] [address] [place], [address], 04/10/2020 02:05:04/06/2004/10/2020 lipid panel , serum chol/HDLC ratio 2.9 (calc ) <5.0 normal Not Available [facility] [address] [address] [facility] [place], [address], 04/10/2020 02:05:17 04/06/2004/10/2020 lipid panel , serum non HDL cholesterol 112 mg/dL _(susy c) <130 normal For patie nts with diabe komal plus 1 major ASCVD risk facto r, treat ing to a non-H DL-C goal of <100 mg/dL (LDL- C of <70 mg/dL ) is consi dered a thera peuti c optio n. Not Available [facility] [address] [address] [address], [place], [address], 04/10/2020 02:05:17 04/06/2004/10/2020 magne sium, serum or plasm a magnesium 1.7 mg/dL 1.5-2. 5 normal Not Available [facility] [address] [address] [place], [address], 04/10/2020 02:05:17 04/06/2004/10/2020 CMP, serum or plasm a glucose 139 mg/dL 65-99 high Fasti ng refer ence inter usama For someo ne witho ut known diabe komal, a gluco se value >125 mg/dL indic ates that they may have diabe komal and this shoul d be confi rmed with a follo w-up test. Not Available [address], [address], 04/10/2020 02:05:18 04/06/2004/10/2020 CMP, serum or plasm a urea nitrogen (BUN) 12 mg/dL 7-25 normal Not Available [facility] [address], [address], 04/10/2020 02:05:18 04/06/2004/10/2020 CMP, serum or plasm a creatinine 0.73 mg/dL 0.60-0 .93 normal For patie nts >49 years of age, the refer ence limit for Creat inine is appro ximat yandel 13% highe r for peopl e ident ified as Afric an-Am ayah n. Not Available [address], [address], 04/10/2020 02:05:18 04/06/2004/10/2020 CMP, serum or plasm a eGFR non-afr. [place]an 81 mL/mi n/1.7 3m2 > or = 60 normal Not Available [facility] [address] [address] [place], [address], 04/10/2020 02:05:18 04/06/2004/10/2020 CMP, serum or plasm a eGFR 93 mL/mi n/1.7 3m2 > or = 60 normal Not Available [facility] [address], [address], 04/10/2020 02:05:18 04/06/2004/10/2020 CMP, serum or plasm a BUN/creatini ne ratio NOT APPLIC ABLE (calc ) 6-22 Not Available [address], [address], 04/10/2020 02:05:18 04/06/2004/10/2020 CMP, serum or plasm a sodium 140 mmol/ L 135-14 6 normal Not Available [address], [address], 04/10/2020 02:05:18 04/06/2004/10/2020 CMP, serum or plasm a potassium 4.3 mmol/ L 3.5-5. 3 normal Not Available [address], [address], 04/10/2020 02:05:18 04/06/2004/10/2020 CMP, serum or plasm a chloride 105 mmol/ L 98-110 normal Not Available [address], [address], 04/10/2020 02:05:18 04/06/2004/10/2020 CMP, serum or plasm a carbon dioxide 25 mmol/ L 20-32 normal Not Available [address], [address], 04/10/2020 02:05:18 04/06/2004/10/2020 CMP, serum or plasm a calcium 10.0 mg/dL 8.6-10 .4 normal Not Available [address], [address], 04/10/2020 02:05:18 04/06/2004/10/2020 CMP, serum or plasm a protein, total 6.9 g/dL 6.1-8. 1 normal Not Available [address], [address], 04/10/2020 02:05:18 04/06/2004/10/2020 CMP, serum or plasm a albumin 4.1 g/dL 3.6-5. 1 normal Not Available [address], [address], 04/10/2020 02:05:18 04/06/2012 0404/10/2020 CMP, serum or plasm a globulin 2.8 g/dL_ (calc ) 1.9-3. 7 normal Not Available [address], [address], 04/10/2020 02:05:18 04/06/2004/10/2020 CMP, serum or plasm a albumin/glob ulin ratio 1.5 (calc ) 1.0-2. 5 normal Not Available [address], [address], 04/10/2020 02:05:18 04/06/2004/10/2020 CMP, serum or plasm a bilirubin, total 0.7 mg/dL 0.2-1. 2 normal Not Available [address], [address], 04/10/2020 02:05:18 04/06/2004/10/2020 CMP, serum or plasm a alkaline phosphatase 133 U/L 37-153 normal Not Available [facility] [address], [address], 04/10/2020 02:05:18 04/06/2004/10/2020 CMP, serum or plasm a AST 16 U/L 10-35 normal Not Available [address], [address], 04/10/2020 02:05:18 04/06/2004/10/2020 CMP, serum or plasm a ALT 15 U/L 6-29 normal Not Available [facility] [address], [address], 04/10/2020 02:05:18 04/06/2004/10/2020 CBC w/ auto diff white blood cell count 6.2 thous and/u L 3.8-10 .8 normal Not Available [address], [address], 04/10/2020 02:05:20 04/06/2004/10/2020 CBC w/ auto diff red blood cell count 5.74 cari on/uL 3.80-5 .10 high Not Available [address], [address], 04/10/2020 02:05:20 04/06/2004/10/2020 CBC w/ auto diff hemoglobin 15.1 g/dL 11.7-1 5.5 normal Not Available [address] [address], [address], 04/10/2020 02:05:20 04/06/2004/10/2020 CBC w/ auto diff hematocrit 48.8 % 35.0-4 5.0 high Not Available [address], [address], 04/10/2020 02:05:20 04/06/2004/10/2020 CBC w/ auto diff MCV 85.0 fL 80.0-1 00.0 normal Not Available [address], [address], 04/10/2020 02:05:20 04/06/2004/10/2020 CBC w/ auto diff MCH 26.3 pg 27.0-3 3.0 low Not Available [address], [address], 04/10/2020 02:05:20 04/06/2004/10/2020 CBC w/ auto diff MCHC 30.9 g/dL 32.0-3 6.0 low Not Available [address], [address], 04/10/2020 02:05:20 04/06/2004/10/2020 CBC w/ auto diff RDW 14.0 % 11.0-1 5.0 normal Not Available [address], [address], 04/10/2020 02:05:20 04/06/20 20 04/10/2020 CBC w/ auto diff platelet count 208 thous and/u L 140-40 0 normal Not Available [address], [address], 04/10/2020 02:05:20 04/06/2004/10/2020 CBC w/ auto diff MPV 10.5 fL 7.5-12 .5 normal Not Available [address], [address], 04/10/2020 02:05:20 04/06/2004/10/2020 CBC w/ auto diff absolute neutrophils 3255 cells /uL 1500-7 800 normal Not Available [address], [address], 04/10/2020 02:05:20 04/06/2004/10/2020 CBC w/ auto diff absolute lymphocytes 2170 cells /uL 850-39 00 normal Not Available [address], [address], 04/10/2020 02:05:20 04/06/2004/10/2020 CBC w/ auto diff absolute monocytes 484 cells /uL 200-95 0 normal Not Available [address], [address], 04/10/2020 02:05:20 04/06/2004/10/2020 CBC w/ auto diff absolute eosinophils 211 cells /uL 15-500 normal Not Available [address], [address], 04/10/2020 02:05:20 04/06/2004/10/2020 CBC w/ auto diff absolute basophils 81 cells /uL 0-200 normal Not Available [address], [address], 04/10/2020 02:05:20 04/06/2004/10/2020 CBC w/ auto diff neutrophils 52.5 % normal Not Available [address], [address], 04/10/2020 02:05:20 04/06/2004/10/2020 CBC w/ auto diff lymphocytes 35.0 % normal Not Available [address], [address], 04/10/2020 02:05:20 04/06/2004/10/2020 CBC w/ auto diff monocytes 7.8 % normal Not Available [address], [address], 04/10/2020 02:05:20 04/06/2004/10/2020 CBC w/ auto diff eosinophils 3.4 % normal Not Available [address], [address], 04/10/2020 02:05:20 04/06/2004/10/2020 CBC w/ auto diff basophils 1.3 % normal Not Available [address], [address], 04/10/2020 02:05:20 04/06/2004/10/2020 T4, free, serum T4, free 1.6 NG/dL 0.8-1. 8 normal Not Available [address], [address], 04/10/2020 02:05:20 04/06/2004/10/2020 TSH, serum or plasm a TSH 2.96 mIU/L 0.40-4 .50 normal Not Available [address], [address], 04/10/2020 02:05:21 04/06/2004/10/2020 vitam in D, 25-hy droxy , total , serum vitamin D,25-oh,tota l,ia 29 NG/mL 30-100 low Vitam in D Statu s 25-OH Vitam in D: Defic iency : <20 ng/mL Insuf ficie ncy: 20 - 29 ng/mL Optim al: > or = 30 ng/mL For 25-OH Vitam in D testi ng on patie nts on D2-carvajal pplem entat ion and patie nts for whom quant itati on of D2 and D3 fract ions is requi red, the [facility] e[facility](TM ) 25-OH VIT D, (D2,D 3), LC/MS /MS is recom michael d: order code 63333 (donavon ents >2yrs ). See Note 1 Note 1 For addit ional infor cipriano echevarria refer to http: //malena Krishnamurthyia gntito ics.c om/fa q/FAQ 199 (This link is being provi ded for infor brett gonzalez/ lauro garcia purpo ses only. ) Not Available [facility] [address] [place], [address], 04/10/2020 02:05:21 04/06/20 20 04/10/2020 HbA1c (hemo globi n A1c), blood hemoglobin A1C 8.1 %_of_ total _HGB <5.7 high For someo ne witho ut known diabe komal, a hemog lobin A1c value of 6.5% or great er indic ates that they may have diabe komal and this shoul d be confi rmed with a follo w-up test. For someo ne with known diabe komal, a value <7% indic ates that their diabe komal is well contr olled and a value great er than or equal to 7% indic ates subop timal contr ol. A1c targe ts shoul d be indiv idual ized based on durat ion of diabe komal, age, comor bid condi tions , and other consi derat ions. Curre ntly, no conse nsus exist s regar ding use of hemog lobin A1c for diagn osis of diabe komal for child josi. Not Available [facility] [address] [place], [address], 04/10/2020 02:05:21 07/06/2007/07/2020 lipid panel , serum cholesterol, total 180 mg/dL <200 normal Not Available [address], [address], 07/07/2020 14:51:56 07/06/2007/07/2020 lipid panel , serum HDL cholesterol 63 mg/dL > or = 50 normal Not Available [address], [address], 07/07/2020 14:51:56 07/06/2007/07/2020 lipid panel , serum triglyceride s 120 mg/dL <150 normal Not Available [address], [address], 07/07/2020 14:51:56 07/06/2007/07/2020 lipid panel , serum LDL-choleste rol 95 mg/dL _(susy c) normal Refer ence range : <100 Parul able range <100 mg/dL for prima ry preve ntion ; <70 mg/dL for patie nts with CHD or diabe tic patie nts with > or = 2 CHD risk facto rs. LDL-C is now calcu lated using the Carolina n-Hop kins calcu barb n, which is a valid ated novel ellen spencer acy than the Fried teena equat ion in the estim ation of LDL-C . Carolina marin SS et al. JESSICA. 2013; 310(1 9): 2061- 2068 (http ://ed ucati on.Qu stevenDi BeDos. com/f aq/FA Q164) Not Available [address], [address], 07/07/2020 14:51:56 07/06/2007/07/2020 lipid panel , serum chol/HDLC ratio 2.9 (calc ) <5.0 normal Not Available [address], [address], 07/07/2020 14:51:56 07/06/2007/07/2020 lipid panel , serum non HDL cholesterol 117 mg/dL _(susy c) <130 normal For patie nts with diabe komal plus 1 major ASCVD risk facto r, treat ing to a non-H DL-C goal of <100 mg/dL (LDL- C of <70 mg/dL ) is consi dered a thera peuti c optio n. Not Available [address] [address] [place], [address], 07/07/2020 14:51:56 07/06/2007/07/2020 magne sium, serum or plasm a magnesium 1.8 mg/dL 1.5-2. 5 normal Not Available [address] [address] [place], [address], 07/07/2020 14:51:57 07/06/2007/07/2020 CMP, serum or plasm a glucose 132 mg/dL 65-139 normal Non-f astin g refer ence inter usama Not Available [facility] [address] [address] [place], [address], 07/07/2020 14:51:57 07/06/2007/07/2020 CMP, serum or plasm a urea nitrogen (BUN) 15 mg/dL 7-25 normal Not Available [address] [address] [place], [address], 07/07/2020 14:51:57 07/06/2007/07/2020 CMP, serum or plasm a creatinine 0.70 mg/dL 0.60-0 .93 normal For patie nts >49 years of age, the refer ence limit for Creat inine is appro ximat yandel 13% highe r for peopl e ident ified as Afric an-Am ayah n. Not Available [facility] [address] [address] [place], [address], 07/07/2020 14:51:57 07/06/2007/07/2020 CMP, serum or plasm a eGFR non-afr. [place] 85 mL/mi n/1.7 3m2 > or = 60 normal Not Available [address], [address], 07/07/2020 14:51:57 07/06/2007/07/2020 CMP, serum or plasm a eGFR 98 mL/mi n/1.7 3m2 > or = 60 normal Not Available [address] [place], [address], 07/07/2020 14:51:57 07/06/2007/07/2020 CMP, serum or plasm a BUN/creatini ne ratio NOT APPLIC ABLE (calc ) 6-22 Not Available [address], [address], 07/07/2020 14:51:57 07/06/2007/07/2020 CMP, serum or plasm a sodium 137 mmol/ L 135-14 6 normal Not Available [address], [address], 07/07/2020 14:51:57 07/06/2007/07/2020 CMP, serum or plasm a potassium 4.4 mmol/ L 3.5-5. 3 normal Not Available [address], [address], 07/07/2020 14:51:57 07/06/2007/07/2020 CMP, serum or plasm a chloride 105 mmol/ L 98-110 normal Not Available [address], [address], 07/07/2020 14:51:57 07/06/2007/07/2020 CMP, serum or plasm a carbon dioxide 23 mmol/ L 20-32 normal Not Available [address], [address], 07/07/2020 14:51:57 07/06/20 20 07/07/2020 CMP, serum or plasm a calcium 9.7 mg/dL 8.6-10 .4 normal Not Available [address], [address], 07/07/2020 14:51:57 07/06/20 20 07/07/2020 CMP, serum or plasm a protein, total 7.2 g/dL 6.1-8. 1 normal Not Available [address], [address], 07/07/2020 14:51:57 07/06/2007/07/2020 CMP, serum or plasm a albumin 4.2 g/dL 3.6-5. 1 normal Not Available [address], [address], 07/07/2020 14:51:57 07/06/20 20 07/07/2020 CMP, serum or plasm a globulin 3.0 g/dL_ (calc ) 1.9-3. 7 normal Not Available [address], [address], 07/07/2020 14:51:57 07/06/20 20 07/07/2020 CMP, serum or plasm a albumin/glob ulin ratio 1.4 (calc ) 1.0-2. 5 normal Not Available [address], [address], 07/07/2020 14:51:57 07/06/2007/07/2020 CMP, serum or plasm a bilirubin, total 0.8 mg/dL 0.2-1. 2 normal Not Available [address], [address], 07/07/2020 14:51:57 07/06/20 20 07/07/2020 CMP, serum or plasm a alkaline phosphatase 126 U/L 37-153 normal Not Available [facility] [address], [address], 07/07/2020 14:51:57 07/06/2007/07/2020 CMP, serum or plasm a AST 14 U/L 10-35 normal Not Available [address], [address], 07/07/2020 14:51:57 07/06/2007/07/2020 CMP, serum or plasm a ALT 13 U/L 6-29 normal Not Available [address], [address], 07/07/2020 14:51:57 07/06/2007/07/2020 CBC w/ auto diff white blood cell count 6.2 thous and/u L 3.8-10 .8 normal Not Available [address], [address], 07/07/2020 14:51:58 07/06/2007/07/2020 CBC w/ auto diff red blood cell count 5.74 cari on/uL 3.80-5 .10 high Not Available [address], [address], 07/07/2020 14:51:58 07/06/2007/07/2020 CBC w/ auto diff hemoglobin 15.2 g/dL 11.7-1 5.5 normal Not Available [address], [address], 07/07/2020 14:51:58 07/06/2007/07/2020 CBC w/ auto diff hematocrit 46.4 % 35.0-4 5.0 high Not Available [address], [address], 07/07/2020 14:51:58 07/06/2007/07/2020 CBC w/ auto diff MCV 80.8 fL 80.0-1 00.0 normal Not Available [address], [address], 07/07/2020 14:51:58 07/06/2007/07/2020 CBC w/ auto diff MCH 26.5 pg 27.0-3 3.0 low Not Available [address], [address], 07/07/2020 14:51:58 07/06/2007/07/2020 CBC w/ auto diff MCHC 32.8 g/dL 32.0-3 6.0 normal Not Available [address], [address], 07/07/2020 14:51:58 07/06/2007/07/2020 CBC w/ auto diff RDW 14.9 % 11.0-1 5.0 normal Not Available [address], [address], 07/07/2020 14:51:58 07/06/2007/07/2020 CBC w/ auto diff platelet count 211 thous and/u L 140-40 0 normal Not Available [address], [address], 07/07/2020 14:51:58 07/06/2007/07/2020 CBC w/ auto diff MPV 10.7 fL 7.5-12 .5 normal Not Available [address], [address], 07/07/2020 14:51:58 07/06/2007/07/2020 CBC w/ auto diff absolute neutrophils 3174 cells /uL 1500-7 800 normal Not Available [address], [address], 07/07/2020 14:51:58 07/06/2007/07/2020 CBC w/ auto diff absolute lymphocytes 2127 cells /uL 850-39 00 normal Not Available [address] [place], [address], 07/07/2020 14:51:58 07/06/2007/07/2020 CBC w/ auto diff absolute monocytes 570 cells /uL 200-95 0 normal Not Available [address] [place], [address], 07/07/2020 14:51:58 07/06/2007/07/2020 CBC w/ auto diff absolute eosinophils 229 cells /uL 15-500 normal Not Available [address] [address] [place], [address], 07/07/2020 14:51:58 07/06/2007/07/2020 CBC w/ auto diff absolute basophils 99 cells /uL 0-200 normal Not Available [address] [place], [address], 07/07/2020 14:51:58 07/06/2007/07/2020 CBC w/ auto diff neutrophils 51.2 % normal Not Available [address] [place], [address], 07/07/2020 14:51:58 07/06/2007/07/2020 CBC w/ auto diff lymphocytes 34.3 % normal Not Available [address] [place], [address], 07/07/2020 14:51:58 07/06/2007/07/2020 CBC w/ auto diff monocytes 9.2 % normal Not Available [facility] [address] [address] [place], [address], 07/07/2020 14:51:58 07/06/2007/07/2020 CBC w/ auto diff eosinophils 3.7 % normal Not Available [facility] [address] [address] [place], [address], 07/07/2020 14:51:58 07/06/2007/07/2020 CBC w/ auto diff basophils 1.6 % normal Not Available [facility] [address] [address] [place], [address], 07/07/2020 14:51:58 07/06/2007/07/2020 T4, free, serum T4, free 1.4 NG/dL 0.8-1. 8 normal Not Available [facility] [address], [address], 07/07/2020 14:51:58 07/06/2007/07/2020 TSH, serum or plasm a TSH 2.98 mIU/L 0.40-4 .50 normal Not Available [facility] [address], [address], 07/07/2020 14:51:59 07/06/2007/07/2020 HbA1c (hemo globi n A1c), blood hemoglobin A1C 8.1 %_of_ total _HGB <5.7 high For someo ne witho ut known diabe komal, a hemog lobin A1c value of 6.5% or great er indic ates that they may have diabe komal and this shoul d be confi rmed with a follo w-up test. For someo ne with known diabe komal, a value <7% indic ates that their diabe komal is well contr olled and a value great er than or equal to 7% indic ates subop timal contr ol. A1c targe ts shoul d be indiv idual ized based on durat ion of diabe komal, age, comor bid condi tions , and other consi derat ions. Curre ntly, no conse nsus exist s regar ding use of hemog lobin A1c for diagn osis of diabe komal for child josi. Not Available [facility] [address], [address], 07/07/2020 14:51:59 07/06/2007/07/2020 HbA1c (hemo globi n A1c), blood EAG (mg/dL) 186 (calc ) Not Available [facility] [address] [place], [address], 07/07/2020 14:51:59 07/06/20 20 07/07/2020 HbA1c (hemo globi n A1c), blood EAG (mmol/L) 10.3 (calc ) Not Available [facility] [address] [address], [place], [address], 07/07/2020 14:51:59 11/28/19 20 11/10/2019 CT, lumba r spine , w/wo contr ast No observ ation record ed. [email or web address] Not Available 2019 11:38:11 12/05/19 20 12/05/2019 CT, abdom en + pelvi s, w/ contr ast No observ ation record ed. [email or web address] [address] , [place], [address], 12/20/2019 14:25:40 06/16/20 20 06/14/2020 MAMMO , scree sadaf, digit al, bilat eral No observ ation record ed. [email or web address] [facility] [address] [address], [place], [address], 06/16/2020 16:44:14 Result Notes None recorded. Problems Name Problem SNOMED Code Status Onset Date Resolution Date Notes Provider Name and Address Organization Details Recorded Time Uncontrolled type 2 diabetes mellitus 409997762 Active 2019 YAO Langford-BC, PMHNP-BC [address] [place], [address], [facility] 0 15:07:16 Essential hypertension 05140197 Active 2019 YAO Lanfgord-CANDACE, PMHNP-BC [address] [place], [address], [facility] 0 15:07:24 Hyperlipidemia 22571500 Active 2019 ISABEL LangfordP-BC, PMHNP-BC [address] [place], [address], [facility] 0 15:07:54 Major depressive disorder 907279976 Active 2019 YAO Langford-BC, PMHNP-BC [address] [place], [address], [facility] 0 16:25:36 Problem Notes None recorded. Procedures Surgical History Date Name Laterality Status Provider Name and Address Organization Details Recorded Time Tubal Ligation completed YAO Langford-CANDACE, PMHNP-BC [address] [place], [address], [facility] 11/25/2019 15:16:38 Spinal surgery completed YAO Langford-CANDACE, PMHNP-BC [address] [place], [address], [facility] 11/25/2019 15:16:55 R masectomy completed YAO Langford-CANDACE, PMHNP-BC [address] [place], [address], [facility] 11/25/2019 15:17:13 Imaging Results Imaging Date Name Status LastModified by Organiz ation Details LastModified Time 11/10/2019 CT, lumbar spine, w/wo contrast completed [email or web address] Information not available 11/28/2019 11:38:11 12/05/2019 CT, abdomen + pelvis, w/ contrast completed [email or web address] [address] [place], [address], 12/20/2019 14:25:40 06/14/2020 MAMMO, screening, digital, bilateral completed [email or web address] [facility], [address], 06/16/2020 16:44:14 Procedure Notes None recorded. Medical Equipment None Reported. Allergies Allergen ID Allergen Name Allergen Category Reaction Reaction Severity Criticality Documentation Date Start Date Code Code System Note Provider Name and Address Organization Details Recorded Time 2517 adhesive tape environme nt,medica tion itching moderate Not available 11/25/2019 [id number] UNK Aleyda Rubin [facility], [facility] 0 15:15:56 Medications Name Sig Start Date Stop Date Status Note LastModified by Organization Details LastModified Time losartan 50 mg tablet TK 1 T PO QD active Not Available Not Available No t Available buspirone 5 mg tablet 11/24 completed Not Available Not Available Not Available atorvastati n 80 mg tablet Take 1 tablet every day by oral route. active Not Available Not Available No t Available carvedilol 6.25 mg tablet TK 1 T PO BID WITH MEALS active Not Available Not Available No t Available azithromyci n 250 mg tablet 11/24 completed Not Available Not Available Not Available fluconazole 150 mg tablet Take 1 tablet orally x 1 now. If still having symptoms after 3 days take 1 tablet orally x 1 again 07/03 completed Not Available Not Available Not Available meloxicam 15 mg tablet 11/24 completed Not Available Not Available Not Available sertraline 100 mg tablet Take 1 tablet every day by oral route. active Not Available Not Available No t Available triamcinolo ne acetonide 0.1 % topical cream APPLY TOPICALLY TO RASH BID PRN active Not Available Not Available No t Available betamethaso ne valerate 0.1 % topical cream ZAN MODEST AMOUNT TOPICALLY TO RASH ON FEET BID active Not Available Not Available No t Available cephalexin 500 mg capsule 11/24 completed Not Available Not Available Not Available levothyroxi ne 125 mcg tablet TK 1 T PO D active Not Available Not Available No t Available gabapentin 300 mg capsule Take 1 capsule twice a day by oral route. active Not Available Not Available No t Available diclofenac sodium 75 mg tablet,mary ellen yed release 11/24 completed Not Available Not Available Not Available etodolac 400 mg tablet Take 1 tablet 3 times a day by oral route as needed. active Not Available Not Available No t Available gabapentin 100 mg capsule 11/24 completed Not Available Not Available Not Available hydroxyzine HCl 10 mg tablet TK 1 T PO QHS PRF ITCHING active Not Available Not Available No t Available metformin ER 500 mg tablet,exte nded release 24 hr 11/24 completed Not Available Not Available Not Available amoxicillin 875 mg-potassiu m clavulanate 125 mg tablet TK 1 T PO Q 12 H FOR 14 DAYS 07/03 completed Not Available Not Available Not Available nabumetone 500 mg tablet active Not Available Not Available Not Available amoxicillin 500 mg-melissa ferraro clavulanate 125 mg tablet 11/24 completed Not Available Not Available Not Available metformin ER 1,000 mg tablet,exte nded release 24 hr Take 1 tablet twice a day by oral route with meals. 11/26 completed Not Available Not Available Not Available Synjardy XR 12.5 mg-1,000 mg tablet, extended release Take 2 tablets every day by oral route. active Not Available Not Available No t Available Synjardy XR 5 mg-1,000 mg tablet, extended release Take 2 tablets every day by oral route for 90 days. 07/08 completed Not Available Not Available Not Available Tremfya 100 mg/mL subcutaneou s auto-inject or INJECT 100MG UNDER THE SKIN AT WEEK 0 07/03 completed Not Available Not Available Not Available Vitals Date Recorded Body height Heart rate Respiratory rate Oxygen saturation Oxygen saturation in Arterial blood by Pulse oximetry Body temperature Systolic blood pressure Diastolic blood pressure Provider Name and Address Organization Details Last Updated DateTime 0 160.02 cm 61 /min 18 /min 96 % 96 % 97.7 [degF] 128 mm[Hg] 82 mm[Hg] Millicent Miltonylock [facility] 0 12:33:54 Date Recorded Body height Body mass index (BMI) Body weight Heart rate Respiratory rate Oxygen saturation Oxygen saturation in Arterial blood by Pulse oximetry Systolic blood pressure Diastolic blood pressure Provider Name and Address Organization Details Last Updated DateTime 0 160.02 cm 35.7 kg/m2 59646.5 g 75 /min 16 /min 94 % 94 % 132 mm[Hg] 90 mm[Hg] Aleyda Berg [facility] 0 15:12:38 Date Recorded Heart rate Respiratory rate Oxygen saturation Oxygen saturation in Arterial blood by Pulse oximetry Body temperature Systolic blood pressure Diastolic blood pressure Provider Name and Address Organization Details Last Updated DateTime 0 71 /min 16 /min 94 % 94 % 97.5 [degF] 122 mm[Hg] 70 mm[Hg] Moriah Rodriguez, FILTER ASSEMBLER-BC, PMHNP-BC [address] [place], [address] , [facility] 0 14:41:57 Date Recorded Heart rate Oxygen saturation Oxygen saturation in Arterial blood by Pulse oximetry Body temperature Respiratory rate Systolic blood pressure Diastolic blood pressure Provider Name and Address Organization Details Last Updated DateTime 0 64 /min 95 % 95 % 97.5 [degF] 16 /min 118 mm[Hg] 72 mm[Hg] Moriah Rodriguez, FILTER ASSEMBLER-BC, PMHNP-BC [address] [place], [address], [facility] 0 13:32:35 Social History Question Answer Notes LastModified by Organizat ion Details LastModified Time Tobacco Smoking Status Former Smoker Not Available [facility] 07/20/2020 03:13:57 Do You Have An Advance Directive? Yes [id number] Information not available 07/20/2020 What Is Your Level Of Alcohol Consumption? Occasional [id number] Information not available 07/20/2020 What Is Your Level Of Caffeine Consumption? Moderate [id number] Information not available 07/20/2020 How Much Tobacco Do You Chew? None [id number] Information not available 07/20/2020 Which Illicit Or Recreational Drugs Have You Used? None [id number] Information not available 07/20/2020 Do You Or Have You Ever Used E-cigarettes Or Vape? Never Used Electronic Cigarettes [id number] Information not available 07/20/2020 What Is Your Occupation? Retired [id number] Information not available 07/20/2020 Single Or Multi-level Home/work? Single Level Home [email or web address] Information not available 11/25/2019 Live Alone Or With Others? With Others [email or web address] Information not available 11/25/2019 Marital Status [email or web address] Informatio n not available 11/25/2019 What Was The Date Of Your Most Recent Tobacco Screening? 11/25/2019 [id number] Information not available 07/20/2020 Do You Or Have You Ever Used Smokeless Tobacco? Never Used Smokeless Tobacco [id number] Information not available 07/20/2020 How Much Tobacco Do You Smoke? 1 PPD [id number] Information not available 07/20/2020 How Many Years Have You Smoked Tobacco? 10 [id number] Information not available 07/20/2020 Sex: Unknown Functional Status Question Answer Note LastModified by Organization D etails LastModified Time Are you able to walk? YESWOREST [id number] Information not available 07/20/2020 What is your exercise level? None [id number] Information not available 07/20/2020 Mental Status None recorded. Family History Relationship Description Onset Age of this Age Resolved Age Notes LastModified by Organization Details LastModified Time Mother Essential hypertension [email or web address] Not available 11/2019 07:32:35 Mother Chronic kidney disease Not available 2019 07:32:44 Mother Diabetes mellitus Not available 2019 07:32:51 Mother Hyperlipidem ia [email or web address] Not available 2019 07:33:03 Mother Major depressive disorder [email or web address] Not available 2019 07:33:13 Maternal Grandfather Myocardial infarction Not available 11/24 07:33:36 Maternal Grandmother Diabetes mellitus Not available 2019 07:35:19 Father Heart disease [email or web address] Not available 2019 15:17:50 Brother Malignant tumor of prostate Not available 2019 15:18:07 Sister Family history of malignant neoplasm [email or web address] Not available 2019 15:18:23 Medical History Condition Response Allergies/Hayfever Y Osteoarthritis Y Hospitalizations Y UTI Y Anxiety Disorder Y Diabetes Y Hyperlipidemia Y Cancer Y Cellulitis Y Hypertension Y Gynecological HistoryNo gynecological history recorded. Obstetrics History GPAL:G 0 P 0 0 0 0 Immunizations Vaccine Type Date Status Note Provider Nam e and Address Organization Details Recorded Time Influenza, split virus, quadrivalent, PF 07/06/2020 completed MILLIE Langford, PMHNP-BC [address] [place], [address], [facility] 07/06/2020 12:58:54 Past Encounters Encounter ID Performer Location Encounter Start Date Encounter Closed Date Diagnosis/Indication Diagnosis SNOMED-CT Code Diagnosis ICD10 Code Diagnosis Note [id number] MILLIE Langford, PMHNP-BC Main Office [address] [place] [address] 11/25/2019 07:12:49 11/25/2019 16:28:03 Uncontrolled type 2 diabetes mellitus 921876234 E11.65 Checking levels to determine where is at with compliance with DM. Essential hypertension 92903102 I10 Elevated due to sending to hospital prior to arrival. Anemia 965752507 D64.9 Hyperlipidemia 25906946 E78.5 Fatigue 41706747 R53.83 Major depr essive disorder 937439932 F32.9 Patient is current on Zoloft which helps, but not fully resolving symptoms. Patient is having to take care of mom and who require quite a bit of care. Will monitor and look at making changes upon lab results. [id number] Moriah Rodriguez [facility] Main Office [address] [place] [address] 12/20/2019 14:24:27 12/20/2019 15:05:24 Uncontrolled type 2 diabetes mellitus 150858276 E11.65 A1C elevated. Changed medication . Essential hypertension 80158141 I10 Blood pressure much better this visit. Hyperlipidemia 16351296 E78.5 Patient is on Atorvastat in and has some slight elevations of LDL. Continue high dose statin. Major depr essive disorder 149060971 F32.9 Patient is doing a bit better, but due to COVID-19 has had some worsening. Denies SI/HI. Multiple renal cysts 253 271074 N28.1 Not bothering patient. Counseled on renal cysts and that if start having symptoms will refer to specialist . [id number] [facility] Main Office [address] [place] [address] 03/09/2020 07:52:43 03/09/2020 13:34:23 Uncontrolled type 2 diabetes mellitus 320571239 E11.65 Essential hypertension 81688406 I10 Hyperlipidemia 99242479 E78.5 Major depr essive disorder 990566270 F32.9 Patient is doing a bit better, but due to COVID-19 has had some worsening. Denies SI/HI. Candidiasis of vagina 72 398574 B37.3 Hypothyroidism 68859469 E03.9 [id number] Moriah Rodriguez [facility] Main Office [address] [place] [address] 07/06/2020 06:31:37 07/06/2020 13:01:00 Uncontrolled type 2 diabetes mellitus 900017460 E11.65 Essential hypertension 83718084 I10 Hyperlipidemia 74178547 E78.5 Hypothyroidism 32465146 E03.9 Administra tion of influenza vaccine 28514230 Z23 Health Concerns Section Related Observation LastModified by Organization Detai ls LastModified Time None Recorded Concern Status LastModified by Organization Details LastModified Time None Recorded Advance Directives Directive Y: Payers Encounter Date Sequence Insurance Name Policy Number Policy Hernandez Covered Member ID Hernandez Member ID Guarantor Name 11/25/2019 1 [facility] (MEDICARE REPLACEMENT/A DVANTAGE - HMO) [id number] Wendy Stokes [id number] Wendy Stokes 12/19/2019 1 [facility] (MEDICARE REPLACEMENT/A DVANTAGE - HMO) [id number] Wendy Stokes [id number] Wendy Stokes 03/09/2020 1 [facility] (MEDICARE REPLACEMENT/A DVANTAGE - HMO) [id number] Wendy Stokes [id number] Wendy Stokes 07/06/2020 1 [facility] (MEDICARE REPLACEMENT/A DVANTAGE - HMO) [id number] Wendy Stokes [id number] Wendy Stokes Notes Date Note Type Note Provider Name and Address Organization Details Recorded Time 11/25/2019 text/html 73 y/o female he re to establish care. Patient was previously seeing Dr. Arredondo in [facility] and has been having more issues getting over into [facility] to be seen with the difficulties with . Patient reports her blood sugars have been increasingly elevated which she states it has to due with the food she consumes. Patient unfortunately does not follow a DM diet and often eats a lot of foods she is not supposed too. Patient reports she is having procedures done on her back later this week to help relieve the pain she is experiencing. Moriah Rodriguez, FILTER ASSEMBLER-BC, PMHNP-BC [address] [place], [address], [facility] 11/25/2019 16:27:46 12/19/2019 text/html 73 y/o female he re for follow up visit. Patient had CT scan done by pain management which showed a L renal mass. Results provided this office. Between visits further evaluation of suspected L renal mass done which showed renal cysts. Patient's A1C significantly elevated. Blood pressure much better this visit. Moriah RodriguezMILLIE, [facility] [address] [place], [address], [facility] 12/20/2019 15:04:22 03/09/2020 text/html 74 y/o female he re for follow up visit. Patient has been doing well on Synjardy. Patient has been checking blood sugars roughly every two weeks and reports her sugars have stayed below 180. Having increased vaginal itching and used OTC creams which have not helped. Moriah RodriguezMILLIE, [facility] [address] [place], [address], [facility] 03/09/2020 13:34:07 07/06/2020 text/html 74 y/o female he re for follow up visit. DM - compliant with medications, but no diet. Has been checking sugars. Last A1C was in 9s. Had been started on Synjardy for blood sugars, but does not follow diet. HTN - Compliant with medications. Does not report any DAVID, blurry vision, dizziness, CP, SOB, or palpitations. Following a low salt diet. Exercising. HLD - Compliant with statin. No side effects. Following a low cholesterol diet. Hypothyroidism - Patient is on Levothyroxine. Compliant with medication. Denies any side effects like palpitations. Denies any fatigue, weight gain, cold intolerance, constipation, or dry skin. Moriah Whitehead MILLIE Rodriguez, [facility]- [address] [place], [address], [facility] 07/06/2020 13:00:32 OBGyn Episode No OBEpisode recorded.
--- OUTSIDE RECORDS SUMMARY | 2024-12-17 08:55 | XMS_ITS | Encounter Summary ---
Author Organization [facility] Address 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 [address] D.O.B: 1945 SSN: [id number] Parent/Guardian if applicable: Patient Insurance: [employer] ID#: [id number] Group#: ORDER(S) #: [id number] NCV/EMG yoan upper and lower extremity BEST TO CALL CELL. [phone] or home BEST TIME TO CALL: ANYTIME. MAY WE LEAVE MESSAGE AT THAT NUMBER: YES, LEAVE MESSAGE. PLEASE SCHEDULE THE APPOINTMENT AT THE FOLLOWING LOCATION: TEST SCHEDULE [facility]. TEST PRIORITY: 2 - 7 DAYS. as soon as you can ORDERING PHYSICIAN: BECKA ESCOBEDO MD OFFICE WEIGHT CALCULATOR & PHONE: Mary Hagen R ORDER PRINTED BY: JUN 26, 2007 Jacklyn Celestin M 09:31 a FOR SCHEDULING USE ONLY: FIRST ATTEMPT Date:JUN 27, 2007 Adrian Van 11:57 a Spoke with Patient. She does not want to be scheduled for this test * Becka Escobedo MD - 02/07/2008 6:39 PM CDT WEIGHT: 206lbs BLOOD PRESSURE: 140/80 Right Arm Sitting NURSE NAME: Keily Lloyd R TOBACCO USE Patient does not currently use tobacco. CHIEF COMPLAINT low back apin. HISTORY: worsening back pain burning hands and feet PHYSICAL EXAMINATION: CONSTITUTIONAL: GENERAL APPEARANCE: Healthy appearing patient in no distress. NECK/THYROID: Trachea midline. No thyroid enlargement, tenderness, [...] MUSCULOSKELETAL EXAM: EXTREMITIES: DIABETIC II FOOT EXAM: some dec sens pin prick distal feet, pos tinels left wrist ASSESSMENT/PLAN: 250.00-DM II CONTROLLED enc diet 724.5-BACK PAIN reviewed, known djd, radiculopathy 356.9-PERIPHERAL NEUROPATHY likely multifactorial, borderline dm, hx of chemo, radiculopathy, hx ofCTS, check emg try med MEDICATIONS: GABAPENTIN ORAL TABLET 300 MG, 1 Two Times A Day, 60 Dispensed, 3 Fills, status: DISCONTINUED, 06/19/2007. LYRICA ORAL CAPSULE CONVENTIONAL 75 MG, 1 Two Times A Day, 60 Dispensed, status: NEW PRESCRIPTION, 06/19/2007. MOBIC ORAL TABLET 7.5 MG, 1 Every Day, 30 Dispensed, 6 Fills, status: CONTINUED, 06/19/2007. risks explained LAB ORDERS: Order number: [id number] Test Ordered: NCV/EMG UPPER EXTREMITY RIGHT Order number: [id number] Test Ordered: NCV/EMG LOWER EXTREMITY RIGHT Order number: [id number] Test Ordered: NCV/EMG UPPER EXTREMITY LEFT Order number: [id number] Test Ordered: NCV/EMG LOWER EXTREMITY LEFT Patient Education: Risks, benefits, and possible side effects of medication(s) were reviewed with the patient. RETURN VISIT : Instructed to call if not improving. Patient instructed to return in 1 month. Electronically Signed by: Becka Escobedo MD on Tuesday, June 19, 2007 documented in this encounter Plan of Treatment Not on file documented as of this encounter Visit Diagnoses Not on filedocumented in this encounter Care Teams Recruitment Internship Relationship Specialty Start Date End Date Becka Escobedo MD [address] [place] [phone] PCP - General 10/22/03 07/11/15 documented as of this encounter
--- OUTSIDE RECORDS SUMMARY | 2024-12-17 08:55 | XMS_ITS | Encounter Summary ---
Author Organization [facility] Address [address] [place] [address] Care Team Providers Care Optical Engineering Technician Name Role Phone Smith Islas MD Primary Care Provider [phone] Encounter Details Date Type Department Care Team (Late st Contact Info) Description 07/24/2007 Orders Only [facility] Internal Medicine [address] [address] Smith Islas MD [address] [place] [address] Social History Tobacco Use Types Packs/Day Years Used Date Smoking Tobacco: Never Assessed Comments Unknown Sex and Gender Information Value Date Recorded Sex Assigned at Not on file Legal Sex Female 3:30 AM LIBRARIAN SPECIAL COLLECTIONS Gender Identity Not on file Sexual Orientation Not on file documented as of this encounter Progress Notes * Smith Islas MD - 02/07/2008 2:56 PM CDT WEIGHT: 210lbs BLOOD PRESSURE: 140/80 Right Arm Sitting TEMPERATURE: 36.5??c Oral NURSE NAME: Keily Lloyd R TOBACCO USE Patient does not currently use tobacco. CHIEF COMPLAINT numbness in hands and feet. HISTORY: pt upset with out referral service, took too long, did not get emg done HISTORY: 244.9-HYPOTHYROIDISM No complications noted from the medication presently being used. 250.00-DM II CONTROLLED The diabetes remains stable. 272.4-HYPERLIPIDEMIA The patient is tolerating the medications. 311-DEPRESSION off zoloft pt thinks ok 356.9-PERIPHERAL NEUROPATHY continued sx ue and le, occ numbness around mouth, no improvement with lyrica, pt unsure about prev results with gabapentin 461.9-SINUSITIS UNSPECIFIED 1-2 weeks cough sinus sarabjit, worsening ROS: ENDOCRINE: No heat or cold intolerance, no excessive thirst. CARDIAC: No chest pain, palpitations, orthopnea, dyspnea on exertion, or paroxysmal nocturnal dyspnea. RESPIRATORY: No dyspnea, cough, hemoptysis or wheezing. : No frequency, urgency, hematuria or dysuria. GI: No abdominal pain, nausea, vomiting, diarrhea, constipation, melena, or hematochezia. PAST MEDICAL HISTORY: reviewed SOCIAL HISTORY: TOBACCO USE: Has no significant smoking history. PHYSICAL EXAMINATION: CONSTITUTIONAL: GENERAL APPEARANCE: Healthy appearing [...] prick distal feet, pos tinels left wrist NEUROLOGIC: CRANIAL NERVES: cafeteria table attendant II-XII grossly intact. 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 discussed, mammo ok 244.9-HYPOTHYROIDISM cont med 250.00-DM II CONTROLLED recheck lab, cont diet, enc exercise 272.4-HYPERLIPIDEMIA cont med 281.8-OTHER DEFICIENCY ANEMIAS recheck lb 311-DEPRESSION try cymbalta 356.9-PERIPHERAL NEUROPATHY worse, try cymbalta, consider try gabapentin again, check b12, suspect multifactorial, pt wants to wait on emg testing LAB ORDERS: Order number: [id number] Test Ordered: VITAMIN B12 LEVEL 1719 461.9-SINUSITIS UNSPECIFIED rec flu vaccine, rx MEDICATIONS: LEVAQUIN ORAL TABLET 500 MG, 1 Every Day, 10 Dispensed, status: NEW PRESCRIPTION, 07/24/2007. SIM ORAL TABLET 180 MG, 1 Every Day, 30 Dispensed, 4 Fills, status: CONTINUED, 07/24/2007. 401.1-HYPERTENSION ESSENTIAL BENIGN pt upset today, recheck, cont med PREVENTIVE COUNSELING The patient was counseled regarding diet, regular sustained exercise for at least 30 minutes 3-4 times per week. Patient Education: Risks, benefits, and possible side effects of medication(s) were reviewed with the patient. RETURN VISIT : Patient instructed to return in 3 months. Electronically Signed by: Smith Islas MD on Sunday, July 24, 2007 documented in this encounter Plan of Treatment Not on file documented as of this encounter Visit Diagnoses Not on filedocumented in this encounter Care Teams Optical Engineering Technician Relationship Specialty Start Date End Date Smith Islas MD [address] [place] [phone] PCP - General 10/22/03 07/11/15 documented as of this encounter
--- OUTSIDE RECORDS SUMMARY | 2024-12-17 08:55 | XMS_ITS | Encounter Summary ---
Author Organization [facility] Address 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) Social History Tobacco Use Types Packs/Day Years Used Date Smoking Tobacco: Never Assessed Comments Unknown Sex and Gender Information Value Date Recorded Sex Assigned at Not on file 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 Less than 1% of patients with values above 400 pg/mL will have symptoms. 07/24/2007 11:0 0 AM CDT us Smith Islas MD CHEMISTRY ORDERABLES Edited INTERFACE SYSTEM Refer to clinic/hospital department documented in this encounter Visit Diagnoses Diagnosis Unspecified hereditary and idiopathic peripheral neuropathy- Primary documented in this encounter Care Teams Ibm Websphere Portal Developer Relationship Specialty Start Date End Date Smith Islas MD [address] [place] [phone] PCP - General 10/22/03 07/11/15 documented as of this encounter
--- OUTSIDE RECORDS SUMMARY | 2024-12-17 08:55 | XMS_ITS | Encounter Summary ---
Author Organization [facility] Address 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
--- OUTSIDE RECORDS SUMMARY | 2024-12-17 08:55 | XMS_ITS | Encounter Summary ---
Author Organization [facility] Address [address] [place] [address] Care Team Providers Care Pumper Brewery Name Role Phone Smith Islas MD Primary Care Provider Encounter Details Date Type Department Care Team (Latest Contact Info) Description 08/26/2003 Outpatient Historical [facility] Davonte Bermudez MD [address] 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
--- OUTSIDE RECORDS SUMMARY | 2024-12-17 08:55 | XMS_ITS | Encounter Summary ---
Author Organization [facility] Address [address] [place] [address] Care Team Providers Care Obstetrics/Gynecology Nurse Name Role Phone Smith Islas MD Primary Care Provider [phone] Encounter Details Date Type Department Care Team (Late st Contact Info) Description 10/14/2003 Outpatient Historical [facility] Internal Medicine [address] [address] Smith Islas MD [address] [place] [phone] Social History Tobacco Use Types Packs/Day Years Used Date Smoking Tobacco: Never Assessed Comments Unknown Sex and Gender Information Value Date Recorded Sex Assigned at Not on file Legal Sex Female 3:30 AM SCRAPER BURRER Gender Identity Not on file Sexual Orientation Not on file documented as of this encounter Last Filed Vital Signs Vital Sign Reading Time Taken Comments Blood Pressure 140/90 10/14/2003 10:30 AM SCRAPER BURRER Pulse - - Temperature - - Respiratory Rate - - Oxygen Saturation - - Inhaled Oxygen Concentration - - Weight 96.2 kg (212 lb) 10/14/2003 10:30 AM SCRAPER BURRER Height 165.1 cm (5' 5 ) 10/14/2003 10:30 AM SCRAPER BURRER Body Mass Index 35.28 10/14/2003 10:30 AM SCRAPER BURRER documented in this encounter Plan of Treatment Not on file documented as of this encounter Visit Diagnoses Not on filedocumented in this encounter Care Teams Obstetrics/Gynecology Nurse Relationship Specialty Start Date End Date Smith Islas MD [address] [place] [phone] PCP - General 10/22/03 07/11/15 documented as of this encounter
--- OUTSIDE RECORDS SUMMARY | 2024-12-17 08:56 | XMS_ITS | Encounter Summary ---
Author Organization [facility] Address [address] [place] [address] Care Team Providers Care Machine Staker Name Role Phone Smith Islas MD Primary Care Provider [phone] Encounter Details Date Type Department Care Team (Latest Contact Info) Description 01/30/2008 Outpatient Historical [facility] Internal Medicine [address] [address] Smith Islas MD [address] [place] [address] DM w/o Complication Type II (CMS/HCC) Social History Tobacco Use Types Packs/Day Years Used Date Smoking Tobacco: Never Assessed Comments Unknown Sex and Gender Information Value Date Recorded Sex Assigned at Not on file Legal Sex Female 3:30 AM MULTIMEDIA AUTHORING SPECIALIST Gender Identity Not on file Sexual Orientation Not on file documented as of this encounter Plan of Treatment Not on file documented as of this encounter Procedures Procedure Name Priority Date/Time Associated Diagnosis Comments TSH Routine 01/30/2008 9:19 AM CDT HEMOGLOBIN A1C Routine 01/30/2008 9:19 AM CDT LIPID PANEL Routine 01/30/2008 9:19 AM CDT COMPREHENSIVE METABOLIC PANEL Routine 01/30/2008 9:19 AM CDT documented in this encounter Results * (ABNORMAL) LIPID PANEL (01/30/2008 9:19 AM CDT) HDL 57 40 - 59 mg/dL [facility] CHOLESTEROL 190 100 - 199 mg/dL [facility] CHOL/HDL RATIO 3.3 2.0 - 5.0 [facility] TRIGLYCERIDE 120 10 - 149 mg/dL [facility] LDL CALCULATED 109(H) <=99 mg/dL [facility] LIPID PANEL COMMENT See Below [facility] Comment: The adult ATP and pediatric NCEP classifications for lipids are available on the [facility] Intranet at: [email or web address] Select: Lab Policies and Procedures,Current Select: Lipid Panel Interpretation Blood specimen (specimen) 01/30/2008 9:19 AM CDT 01/30/2008 3:20 PM CDT Smith Islas MD CHEMISTRY ORDERABLES Edited Performing Organization Address [facility] Co de Phone Number [facility] [address] [place] [address] * (ABNORMAL) HEMOGLOBIN A1C (01/30/2008 9:19 AM CDT) HEMOGLOBIN A1C 6.9(H) 4.1 - 6.1 % of Hgb [facility] GLUCOSE, MEAN BLOOD 168 mg/dL [facility] Blood specimen (specimen) 01/30/2008 9:19 AM CDT 01/30/2008 3:20 PM CDT Smith Islas MD CHEMISTRY ORDERABLES Final Re sult [facility] CLIA# [id number] [address] [place] [address] * TSH (01/30/2008 9:19 AM CDT) TSH 1.13 0.27 - 4.20 uU/mL [facility] Blood specimen (specimen) 01/30/2008 9:19 AM CDT 01/30/2008 3:20 PM CDT us Smith Islas MD CHEMISTRY ORDERABLES Final Re sult [facility] [address] [place] [address] * (ABNORMAL) COMPREHENSIVE METABOLIC PANEL (01/30/2008 9:19 AM CDT) [facility] TOTAL PROTEIN 7.2 6.3 - 8.6 g/dL [facility] POTASSIUM 4.0 3.5 - 4.9 mmol/L [facility] GLUCOSE 113(H) 65 - 99 mg/dL [facility] AST 17 12 - 32 U/L [facility] BUN 13 6 - 20 mg/dL [facility] CALCIUM 9.3 8.4 - 10.2 mg/dL [facility] CHLORIDE 105 96 - 108 mmol/L [facility] ALBUMIN 4.2 3.4 - 4.8 g/dL [facility] CREATININE 0.47(L) 0.51 - 0.95 mg/dL [facility] SODIUM 139 135 - 145 mmol/L [facility] ALT 18 0 - 31 U/L [facility] ALKALINE PHOSPHATASE 114(H) 35 - 104 U/L [facility] BILIRUBIN TOTAL 0.6 0.2 - 1.0 mg/dL [facility] CO2 22 22 - 30 mmol/L [facility] GFR, >60 >=60 mL/min/1. 7 sq meter [facility] GFR >60 >=60 mL/min/1. 7 sq meter [facility] Comment: Estimated GFR rate interpretative information for both Americans and non- Americans is available on the [facility] Intranet at: [email or web address] Select: Lab Policies and Procedures Select: Reference Ranges - GFR Blood specimen (specimen) 01/30/2008 9:19 AM CDT 01/30/2008 3:20 PM CDT us Smith Islas MD CHEMISTRY ORDERABLES Edited [facility] [address] [place] [address] documented in this encounter Visit Diagnoses Diagnosis Type II or unspecified type diabetes mellitus without mention of complication, not stated as uncontrolled (CMS/[facility]) Type II or unspecified type diabetes mellitus without mention of complication, not stated as uncontrolled documented in this encounter Care Teams Machine Staker Relationship Specialty Start Date End Date Smith Islas MD [address] [place] [phone] PCP - General 10/22/03 07/11/15 documented as of this encounter
--- OUTSIDE RECORDS SUMMARY | 2024-12-17 08:56 | XMS_ITS | Encounter Summary ---
Author Organization [facility] Address [address] [place] [address] Care Team Providers Care High Pressure Cleaner Name Role Phone Smith Islas MD Primary Care Provider [phone] Encounter Details Date Type Department Care Team (Latest Contact Info) Description 02/25/2008 Outpatient Historical [facility] Smith Islas MD [address] [place] [address] Unspecified Backache; Degeneration of Lumbar or Lumbosacral Intervertebral Disc; Arthrodesis Status Social History Tobacco Use Types Packs/Day Years Used Date Smoking Tobacco: Former Alcohol Use Standard Drinks/Week Comments No 0 (1 standard drink = 0.6 oz pur e alcohol) Comments No Sex and Gender Information Value Date Recorded Sex Assigned at Not on file Legal Sex Female 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
--- OUTSIDE RECORDS SUMMARY | 2024-12-17 08:56 | XMS_ITS | Encounter Summary ---
Author Organization [facility] Address [address] [place] [address] Phone Care Team Providers Care Munitions Handler Supervisor Name Role Phone Radhika Arredondo MD Primary Care Provider [phone] Torri Johnson PT Unavailable Unavail able Dustin Tim PT Unavailable Unavailab Jong Brunson REAL ESTATE ASSOCIATE ATTORNEY Unavailable Unavaila Moriah Zapien NP Primary Care Provider [phone] Bradley Rubin MD Primary Care Provider [phone] Miscellaneous, Not In File Unavailable Unava ilTano Cates LIVESTOCK DEALER Unavailable UnavailMaryam Sargent RN Unavailable [phone] Brijesh Cardenas MD Primary Care Provider [phone] Encounter Details Date Type Department Care Team (Late st Contact Info) Description 12/06/2017 Orders Only [facility] [place] [address] Social History Tobacco Use Types Packs/Day Years Used Date Smoking Tobacco: Former Cigarettes 1 15 Smokeless Tobacco: Never Alcohol Use Standard Drinks/Week Comments No 0 (1 standard drink = 0.6 oz pur e alcohol) Comments Unknown Sex and Gender Information Value Date Recorded Sex Assigned at Not on file Legal Sex Female 6:[address] Gender Identity Not on file Sexual Orientation Not on file documented as of this encounter Plan of Treatment Not on file documented as of this encounter Procedures Procedure Name Priority Date/Time Associated Diagnosis Comments DISCHARGE LABORATORY CUMULATIVE REPORT 12/06/2017 12:00 AM CDT documented in this encounter Results * DISCHARGE LABORATORY CUMULATIVE REPORT (12/06/2017 12:00 AM CDT) Narrative 12/06/2017 12:00 AM CDT Ordered by an unspecified provider. us Historical Provider LAB BLOOD ORDERABLES Tangela l Result documented in this encounter Visit Diagnoses Not on filedocumented in this encounter Additional Health Concerns Infection Onset Date Last Indicated Resolved Time COVID: Suspected 03/15/2021 03/15/2021 03/15/2021 3:51 PM CDT COVID: Suspected 03/15/2021 03/15/2021 03/15/2021 7:08 PM CDT COVID: Suspected 10/26/2023 10/26/2023 10/26/2023 7:[address] documented as of this encounter Care Teams Munitions Handler Supervisor Relationship Specialty Start Date End Date Radhika Arredondo MD [address] [facility] [address] [address] PCP - General Internal Medicine 10/01/17 11/26/19 Moriah Rodriguez NP PCP - General 11/27/19 08/15/20 Bradley Rubin MD [address] [facility] [place] [address] PCP - General Family Medicine 08/16/20 07/11/22 Brijesh Cardenas MD [address] [place] [address] [address] [place] [address] PCP - General Family Medicine 07/12/22 Torri Johnson, PT Physical Therapist Physical Therapy 04/18/18 Dustin Tim, PT Physical Therapist Physical Therapy 04/26/18 Jong Reeves, REAL ESTATE ASSOCIATE ATTORNEY Physical Therapist Physical Therapy 05/08/18 Miscellaneous, Not In File 03/17/21 Tano Purcell LCSW Timber Inspector 03/22/21 01/17/22 Maryam Cline, RN [address] [place] [address] [address] [place] [id number] De Icer Kit Assembler 07/04/21 07/27/21 documented as of this encounter
--- OUTSIDE RECORDS SUMMARY | 2024-12-17 08:56 | XMS_ITS | Encounter Summary ---
Author Organization [facility] Address [address] [place] [address] Care Team Providers Care Nanny/Household Manager Name Role Phone Smith Islas MD Primary Care Provider [phone] Encounter Details Date Type Department Care Team (Late st Contact Info) Description 10/16/2007 Outpatient Historical [facility] Internal Medicine [address] [address] Smith Islas MD [address] [place] [address] Social History Tobacco Use Types Packs/Day Years Used Date Smoking Tobacco: Never Assessed Comments Unknown Sex and Gender Information Value Date Recorded Sex Assigned at Not on file Legal Sex Female 3:30 AM ANIMAL STUNNER Gender Identity Not on file Sexual Orientation Not on file documented as of this encounter Last Filed Vital Signs Vital Sign Reading Time Taken Comments Blood Pressure 120/70 10/16/2007 2:00 PM ANIMAL STUNNER Pulse - - Temperature 36.2 C (97.1 F) 10/16/2007 2:00 PM ANIMAL STUNNER Respiratory Rate - - Oxygen Saturation - - Inhaled Oxygen Concentration - - Weight 94.3 kg (208 lb) 10/16/2007 2:00 PM ANIMAL STUNNER Height - - Body Mass Index 34.61 10/14/2003 10:30 AM ANIMAL STUNNER documented in this encounter Plan of Treatment Not on file documented as of this encounter Visit Diagnoses Not on filedocumented in this encounter Care Teams Nanny/Household Manager Relationship Specialty Start Date End Date Smith Islas MD [address] [place] [phone] PCP - General 10/22/03 07/11/15 documented as of this encounter
--- OUTSIDE RECORDS SUMMARY | 2024-12-17 08:56 | XMS_ITS | Encounter Summary ---
Author Organization [facility] Address [address] [place] [address] Care Team Providers Care Estimator Printing Plate Making Name Role Phone Smith Islas MD Primary Care Provider [phone] Encounter Details Date Type Department Care Team (Late st Contact Info) Description 11/13/2007 Outpatient [facility] Internal Medicine [address] [address] Smith Islas MD [address] [place] [phone] Social History Tobacco Use Types Packs/Day Years Used Date Smoking Tobacco: Never Assessed Comments Unknown Sex and Gender Information Value Date Recorded Sex Assigned at Not on file Legal Sex Female 3:30 AM SILK FOLDER Gender Identity Not on file Sexual Orientation Not on file documented as of this encounter Plan of Treatment Not on file documented as of this encounter Visit Diagnoses Not on filedocumented in this encounter Care Teams Estimator Printing Plate Making Relationship Specialty Start Date End Date Smith Islas MD [address] [place] [address] [address] [place] [address] PCP - General 10/22/03 07/11/15 documented as of this encounter
--- OUTSIDE RECORDS SUMMARY | 2024-12-17 08:56 | XMS_ITS | Encounter Summary ---
Author Organization [facility] Address [address] [place] [address] Care Team Providers Care Oil Field Tester Name Role Phone Smith Islas MD Primary Care Provider Encounter Details Date Type Department Care Team (Late st Contact Info) Description 10/04/2007 Orders Only [facility] Internal Medicine [address] [address] Smith Islas MD [address] [address] Social History Tobacco Use Types Packs/Day Years Used Date Smoking Tobacco: Never Assessed Comments Unknown Sex and Gender Information Value Date Recorded Sex Assigned at Not on file Legal Sex Female 3:30 AM ADMINISTRATION INTERN Gender Identity Not on file Sexual Orientation Not on file documented as of this encounter Progress Notes * Smith Islas MD - 02/05/2008 6:10 PM CDT WEIGHT: 207lbs BLOOD PRESSURE: 130/70 Right Arm Sitting NURSE NAME: Keily Lloyd R TOBACCO USE Patient does not currently use tobacco. CHIEF COMPLAINT Patient here for follow up diabetes, hypertension. 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 250.00-DM II CONTROLLED Patient is somewhat compliant with diet. 311-DEPRESSION No complications noted from the medication presently being used. 401.1-HYPERTENSION ESSENTIAL BENIGN The patient is tolerating the medication. The patient denies chest pain, shortness of breath, dyspnea on exertion, pedal edema, or headache. ROS: ENDOCRINE: No heat or cold intolerance, [...] distress. EARS, NOSE, MOUTH AND THROAT: EARS: Tympanic membranes shiny without retraction. Canals unremarkable. Hearing grossly normal. ORAL: No erythema in oropharynx. NECK/THYROID: Trachea midline. No thyroid enlargement, tenderness, or mass. No supraclavicular or cervical adenopathy. RESPIRATORY: Clear to auscultation and percussion. Normal respiratory effort. CARDIOVASCULAR: CARDIAC: Regular rhythm. No murmurs, rubs, or gallops. ARTERIAL: No aortic bruits. EDEMA/VARICOSITIES OF EXTREMITIES: No edema or varicosities. GASTROINTESTINAL: ABDOMEN: Soft, non-tender, without masses. Bowel sounds active. LIVER/SPLEEN/KIDNEY: No hepatosplenomegaly, tenderness or nodularity. Kidneys not palpable. 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 250.00-DM II CONTROLLED cont diet recheck lab LAB ORDERS: 4 mo Order number: [id number] Test Ordered: COMPREHENSIVE METABOLIC PANEL & GFR 1112 Order number: [id number] Test Ordered: HEMOGLOBIN A1C 1814 Order number: [id number] Test Ordered: LIPID PANEL 1078 Order number: [id number] Test Ordered: TSH 1720 311-DEPRESSION better , cont med 401.1-HYPERTENSION ESSENTIAL BENIGN cont med, enc diet and exercise PREVENTIVE COUNSELING The patient was counseled regarding diet, regular sustained exercise for at least 30 minutes 3-4 times per week. Patient Education: Risks, benefits, and possible side effects of medication(s) were reviewed with the patient. The patient was allowed to ask questions to stated satisfaction. RETURN VISIT : Patient instructed to return in 4 months. Electronically Signed by: Smith Islas MD on Thursday, October 04, 2007 documented in this encounter Plan of Treatment Not on file documented as of this encounter Visit Diagnoses Not on filedocumented in this encounter Care Teams Oil Field Tester Relationship Specialty Start Date End Date Smith Islas MD [address] [place] [phone] PCP - General 10/22/03 07/11/15 documented as of this encounter
--- OUTSIDE RECORDS SUMMARY | 2024-12-17 08:56 | XMS_ITS ---
Author Organization [facility] elizabeth Address [address] [address] [place] [address] Care Team Providers Care Wildlife Ecology Professor Name Role Phone Miranda Melendez Unavailable [phone] zzzzMigration, zzzzProvider Unavailable Unav ailable Allergies Allergen (clinical drug ingredient) Drug/Non Drug Allergy documented on EMR Reaction Allergy Type Onset Date Status Adhesive Unknown Allergy 2018 Active REASON FOR VISIT EMR-Charanjit Medications Medication SIG (Take, Route, Frequency, Duration) Notes Start Date End Date Status Atorvastatin Calcium 80 MG take 1 tablet [...] the abdomen or thigh (rotate sites) Subcutaneous [id number]-84 Active Gabapentin 300 MG take 1 capsule (300 mg) by oral route 3 times per day Oral 3 03/31/2020 Active Sertraline HCl 100 MG Oral Active Carvedilol 25 MG Oral Act barbara Encounters Encounter Location Date Provider Diagnosis [facility] [address] [facility] [address] [place] [address] 07/15/2023 zzzzProvider zzzzMigration Plan Of Treatment No Information Progress Notes * Lilliana STOKESOB:1945 (79 yo F)Acc No.[id number]:07/15/2023 Patient: Wendy REYES :1945 A ge:77 Y S ex:Female Address:[address] [place] [address], [address] Subjective: * Chief Complaints: * E MR-Charanjit * Medical History: * Surgical History: B ack surgery; [id number]; 2018 * Hospitalization/Major Diagno stic Procedure: * Family History: M igrated Family History: Arthritis , Brothers Notes: 3 = all alive and well , Diabetes , Father Notes: age of 93 - of old age , Mother Notes: alive - 94 - fair health , Sibling-Sister Notes: of cancer age 55 , Stroke . * Social History: M igrated Social History: M igrated Social History: :: 3 Children , Substance Use :: Tobacco :: Former. * Medications: T akingGabapentin 300 MG Capsule take 1 capsule (300 mg) by oral route 3 times per day Oral 3 Carvedilol 25 MG Tablet Oral Atorvastatin Calcium 80 MG Tablet take 1 tablet (80 mg) by oral route once daily Oral 1 Losartan Potassium 50 MG Tablet Oral Humira 40 MG/0.8ML Prefilled Syringe Kit inject 0.8 milliliter (40 mg) by subcutaneous route every 2 weeks in the abdomen or thigh (rotate sites) Subcutaneous [id number] Sertraline HCl 100 MG Tablet Oral Nabumetone 500 MG Tablet take 2 tablets (1,000 mg) by oral route 2 times per day Oral 2 Levothyroxine Sodium 100 MCG Tablet Oral Taking Gabapentin 300 MG Capsule take 1 capsule (300 mg) by oral route 3 times per day Oral 3 Taking Carvedilol 25 MG Tablet Oral Taking Atorvastatin Calcium 80 MG Tablet take 1 tablet (80 mg) by oral route once daily Oral 1 Taking Losartan Potassium 50 MG Tablet Oral Taking Humira 40 MG/0.8ML Prefilled Syringe Kit inject 0.8 milliliter (40 mg) by subcutaneous route every 2 weeks in the abdomen or thigh (rotate sites) Subcutaneous [id number]-[id number] Taking Sertraline HCl 100 MG Tablet Oral Taking Nabumetone 500 MG Tablet take 2 tablets (1,000 mg) by oral route 2 times per day Oral 2 Taking Levothyroxine Sodium 100 MCG Tablet Oral * Allergies: A dhesive: Allergy - Onset Date 2018 Objective: * Vitals: * Physical Examination: Assessment: Plan: * Treatment: * Procedure Codes: * true * Date: Generated for Mabel burgos/Ceasar/Juan on: 0 12/17/2024 08:56 AM CDT
--- OUTSIDE RECORDS SUMMARY | 2024-12-17 08:56 | XMS_ITS | Encounter Summary ---
Author Organization [facility] Address [address] [place] [address] Care Team Providers Care Materials Management Manager Name Role Phone Smith Islas MD Primary Care Provider [phone] Encounter Details Date Type Department Care Team (Late st Contact Info) Description 11/13/2007 Outpatient [facility] Internal Medicine [address] [address] Smith Islas MD [address] [place] [phone] Social History Tobacco Use Types Packs/Day Years Used Date Smoking Tobacco: Never Assessed Comments Unknown Sex and Gender Information Value Date Recorded Sex Assigned at Not on file Legal Sex Female 3:30 AM ASSEMBLY INSTRUCTIONS WRITER Gender Identity Not on file Sexual Orientation Not on file documented as of this encounter Plan of Treatment Not on file documented as of this encounter Visit Diagnoses Not on filedocumented in this encounter Care Teams Materials Management Manager Relationship Specialty Start Date End Date Smith Islas MD [address] [place] [address] [address] [place] [address] PCP - General 10/22/03 07/11/15 documented as of this encounter
--- OUTSIDE RECORDS SUMMARY | 2024-12-17 08:56 | XMS_ITS | Encounter Summary ---
Author Organization [facility] Address [address] [place] [address] Care Team Providers Care Stringer Up Soldering Machine Name Role Phone Becka Escobedo MD Primary Care Provider [phone] Encounter Details Date Type Department Care Team (Latest Contact Info) Description 03/11/2008 Outpatient Historical [facility] Rebel Swann MD [address] [place] [address] Lumbago; Degeneration of Lumbar or Lumbosacral Intervertebral Disc; Arthrodesis Status Social History Tobacco Use Types Packs/Day Years Used Date Smoking Tobacco: Former Alcohol Use Standard Drinks/Week Comments No 0 (1 standard drink = 0.6 oz pur e alcohol) Comments No Sex and Gender Information Value Date Recorded Sex Assigned at Not on file Legal Sex Female 3:30 AM PAGEANT DIRECTOR Gender Identity Not on file Sexual Orientation Not on file documented as of this encounter Plan of Treatment Not on file documented as of this encounter Procedures Procedure Name Priority Date/Time Associated Diagnosis Comments XR LUMBAR SPINE 2 OR 3 VW Routine 03/11/2008 11:45 AM CDT documented in this encounter Results * XR LUMBAR SPINE 2 OR 3 VW (03/11/2008 11:45 AM CDT) Anatomical Region Laterality Modality Spine Other 03/11/2008 11:4 5 AM CDT Narrative 03/11/2008 3:22 PM CDT [facility] [address] [place], [place] [address] Admit Date: 03/11/2008 MORRIS STOKES Sex: F Admit Prov: REBEL SWANN Date: 1945 Primary Care Prov: BECKA ESCOBEDO CMRN: [id number] Room: [facility]: [address] [place] [address] IMAGING SERVICES Ordering Prov: N/A Accession Number: [id number] Interpretation LUMBAR SPINE 2 VIEWS, 03/11/2008 Clinical History: Low back pain. Findings: There are laminectomies and fusion at L4-L5 with posterior stabilization rods, pedicle screws and disc spacer material. There is disc space narrowing from L2-L3 through L5-S1. No fracture or bony destructive lesion is seen. Impression: L4-L5 posterior fusion. . Dictated by: EMELY KIRBY 03/11/2008 13:17 Electronically signed by: EMELY KIRBY 03/11/2008 15:21 Transcribed: 03/11/2008 15:15 LE Procedure Note Emely Kirby MD - 03/11/2008 [facility] [address], [place] [address] Admit Date: 03/11/2008 MORRIS STOKES Sex: F Admit Prov: REBEL SWANN Date: 1945 Primary Care Prov: BECKA ESCOBEDO CMRN: [id number] Room: [facility]: [address] [place] [address] IMAGING SERVICES Ordering Prov: N/A Interpretation LUMBAR SPINE 2 VIEWS, 03/11/2008 Clinical History: Low back pain. Findings: There are laminectomies and fusion at L4-L5 withposterior stabilization rods, pedicle screws and disc spacer material. There isdisc space narrowing from L2-L3 through L5-S1. No fracture or bonydestructive lesion is seen. Impression: L4-L5 posterior fusion. . Dictated by: EMELY KIRBY 03/11/2008 13:17 Electronically signed by: EMELY KIRBY 03/11/2008 15:21 Transcribed: 03/11/2008 15:15 LE us Rebel Swann MD DIAGNOSTIC IMAGING ORDERABLES F inal Result documented in this encounter Visit Diagnoses Diagnosis Lumbago Degeneration of lumbar or lumbosacral intervertebral disc Arthrodesis status documented in this encounter Care Teams Stringer Up Soldering Machine Relationship Specialty Start Date End Date Becka Escobedo MD [address] [place] [phone] PCP - General 10/22/03 07/11/15 documented as of this encounter
--- OUTSIDE RECORDS SUMMARY | 2024-12-17 08:56 | XMS_ITS | Encounter Summary ---
Author Organization [facility] Address [address] [place] [address] Care Team Providers Care Can Labeler Name Role Phone Becka Escobedo MD Primary Care Provider [phone] Encounter Details Date Type Department Care Team (Late st Contact Info) Description 11/13/2007 Orders Only [facility] Internal Medicine [address] [address] Becka Escobedo MD [address] [place] [phone] Social History Tobacco Use Types Packs/Day Years Used Date Smoking Tobacco: Never Assessed Comments Unknown Sex and Gender Information Value Date Recorded Sex Assigned at Not on file Legal Sex Female 3:30 AM HOBBIES AND CRAFTS SALES REPRESENTATIVE Gender Identity Not on file Sexual Orientation Not on file documented as of this encounter Progress Notes * Becka Escobedo MD - 02/05/2008 2:10 PM CDT SPECIALIST REFERRAL REQUEST DATE: NOV 13, 2007 Note created by: Zara Linares C 10:53 a Patient Name : MORRIS STOKES Address: [address] [address] D.O.B: 1945 SSN: [id number] Parent/Guardian if applicable: Patient Insurance: [employer] Policy#: [id number] Group #: Best To Call : [phone] Best Time to Call : ANYTIME. May We Leave Message At That Number : YES, LEAVE MESSAGE. Referring to: GENERAL SURGERY Dr. Emma Brooke ph: [phone] fax: [phone]. Dr. Noelle Caceres ph: [phone] fax [phone]. Reason for referral: pain in left breast ORDERING PHYSICIAN : BECKA ESCOBEDO MD PRIORITY OF REFERRAL: AT PATIENT'S CONVENIENCE. OFFICE ART CRITIC & PHONE: Zara Linares C FOR SCHEDULING USE ONLY FIRST ATTEMPT Date:NOV 14, 2007 Bora Steen 10:55 a Spoke with Patient. pt will need to bring xrays and films with her to the appt. APPOINTMENT DATE : 11/18/2007 ( 12:[address] Brooke) LT 11/14/07 10:57 am Referral number: [facility] NN ligotm 11/14/2007 10:58 a Referral/Pre-auth communicated: Referral information phoned to patient. * Becka Escobedo MD - 02/05/2008 2:10 PM CDT WEIGHT: 210lbs BLOOD PRESSURE: 140/80 Right Arm Sitting NURSE NAME: Keily Lloyd Jose TOBACCO USE Patient does not currently use tobacco. CHIEF COMPLAINT pain in Lt. breast. HISTORY: ongoing left breast pain, little change since accident PHYSICAL EXAMINATION: NECK/THYROID: Trachea midline. No thyroid enlargement, tenderness, or mass. No supraclavicular or cervical adenopathy. RESPIRATORY: Clear to auscultation and percussion. Normal respiratory effort. CARDIOVASCULAR: CARDIAC: Regular rhythm. No murmurs, rubs, or gallops. EDEMA/VARICOSITIES OF EXTREMITIES: No edema or varicosities. BREAST/CHEST: GENERALIZED FIBROSIS AND THICKENING OF THE LEFT BREAST.tender around nipple ASSESSMENT/PLAN: 272.4-HYPERLIPIDEMIA cont med 459.89-ECCYHMOSIS vs other in breast, still pain from accidetn 611.72-BREAST MASS/LUMP refer surgical opinion , discussed REPEAT VITAL SIGNS: BLOOD PRESSURE: 130/70. Right Arm Sitting SPECIALTY REFERRAL: GENERAL SURGERY Dr. Emma Brooke ph: [phone] fax: [phone]. Dr[address] Noelle Caceres ph: [phone] fax [phone]. Patient Education: The patient was allowed to ask questions to stated satisfaction. RETURN VISIT : Instructed to call if not improving. Electronically Signed by: Becka Escobedo MD on Tuesday, November 13, 2007 documented in this encounter Plan of Treatment Not on file documented as of this encounter Visit Diagnoses Not on filedocumented in this encounter Care Teams Can Labeler Relationship Specialty Start Date End Date Becka Escobedo MD [address] [place] [phone] PCP - General 10/22/03 07/11/15 documented as of this encounter
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
--- OUTSIDE RECORDS SUMMARY | 2024-12-17 08:56 | XMS_ITS | CONTINUITY OF CARE DOCUMENT ---
Author Name héctor anaya Address Unknown Organization [facility] Address [address] [facility] [address] [place] [address] Phone [phone] Care Team Providers Care Manager Body Name Role Phone Trini SAENZ, Otto Unavailable [phone] Otto Feliz MD Unavailable [phone] INSURANCE PROVIDERS Payer name Policy type / Coverage type [place] red libertarian ID [id number] PAY
--- OUTSIDE RECORDS SUMMARY | 2024-12-17 08:56 | XMS_ITS | Encounter Summary ---
Author Organization [facility] Address 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 [address] D.O.B: 1945 SSN: [id number] Parent/Guardian if applicable: Patient Insurance: [employer] ID#: [id number] Group#: ORDER(S) #: [id number] [facility] BEST TO CALL CELL. [phone] MAY WE LEAVE MESSAGE AT THAT NUMBER: YES, LEAVE MESSAGE. PLEASE SCHEDULE THE APPOINTMENT AT THE FOLLOWING LOCATION: [facility] [phone]. TEST PRIORITY: 2 - 7 DAYS. SPECIAL SCHEDULING INSTRUCTIONS: need prep ORDERING PHYSICIAN: BECKA ESCOBEDO MD OFFICE BOILER RELINER & PHONE: Rossi Herrera E ORDER PRINTED BY: OCT 17, 2007 Deidre Biggs 12:51 p FOR SCHEDULING USE ONLY: FIRST ATTEMPT Date:OCT 18, 2007 Deidre Biggs 08:30 a Spoke with Patient. OCT 18, 2007 Deidre Biggs 08:31 a [facility] [phone]. APPOINTMENT DATE : 10/21/2007 ( 2pm) The appointment was scheduled by Deidre Biggs at [phone] FINAL ACTION Follow up completed. Spoke with patient. * Becka Escobedo MD - 02/05/2008 8:18 PM CDT WEIGHT: 208lbs BLOOD PRESSURE: 120/70 Right Arm Sitting TEMPERATURE: 36.17??c Oral NURSE NAME: Keily Lloyd R TOBACCO USE Patient does not currently use tobacco. CHIEF COMPLAINT Patient complains of sinus congestion, dizziness. HISTORY: HISTORY: 174.1-MALIGNANT NEOPLASM OF FEMALE BREAST pt with inc tenderness, swelling left breast 461.9-SINUSITIS UNSPECIFIED 2 weeks inc cough , congestion sinus drainage, sore throat PHYSICAL EXAMINATION: EARS, NOSE, MOUTH AND THROAT: EARS: EFFUSION PRESENT BILATERALLY, TYMPANIC MEMBRANES INFLAMED BILATERALLY. ORAL: OROPHARYNX ERYTHEMATOUS. NECK/THYROID: Trachea midline. No thyroid enlargement, tenderness, or mass. No supraclavicular or cervical adenopathy. RESPIRATORY: Clear to auscultation and percussion. Normal respiratory effort. CARDIOVASCULAR: EDEMA/VARICOSITIES OF EXTREMITIES: No edema or varicosities. BREAST/CHEST: GENERALIZED FIBROSIS AND THICKENING OF THE LEFT BREAST. 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 discussed at length proceed with us LAB ORDERS: Order number: [id number] Test Ordered: US BREAST LEFT StA 461.9-SINUSITIS UNSPECIFIED rx MEDICATIONS: LEVAQUIN ORAL TABLET 750 MG, 1 Every Day, 5 Dispensed, status: NEW PRESCRIPTION, 10/16/2007. 611.72-BREAST MASS/LUMP ?? as above RETURN VISIT : Instructed to call if not improving. Electronically Signed by: Becka Escobedo MD on Tuesday, October 16, 2007 documented in this encounter Plan of Treatment Not on file documented as of this encounter Visit Diagnoses Not on filedocumented in this encounter Care Teams Carpet Yarn Winder Operator Relationship Specialty Start Date End Date Becka Escobedo MD [address] [place] [phone] PCP - General 10/22/03 07/11/15 documented as of this encounter
--- OUTSIDE RECORDS SUMMARY | 2024-12-17 08:56 | XMS_ITS | Encounter Summary ---
Author Organization [facility] Address 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
--- OUTSIDE RECORDS SUMMARY | 2024-12-17 08:56 | XMS_ITS | Clinical Summary ---
Author Organization [facility] Address [address] [place] [address] Care Team Providers Care Landscape Laborer Name Role Phone Bradley Rubin MD Primary Care Provider [phone] Allergies No known active allergies Medications oxyCODONE-acetam inophen (PERCOCET) 5-325 MG tabletIndication s:Acute Pain < 7 Day Supply Take 1 tablet by mouth every 6 (six) hours as needed for Pain. Indications : Acute Pain < 7 Day Supply 15 tablet 05/16/2021 Active Social History Tobacco Use Types Packs/Day Years Used Date Smoking Tobacco: Former Cigarettes Smokeless Tobacco: Never Alcohol Use Standard Drinks/Week Comments Not Currently 0 (1 standard drink = 0.6 oz pur e alcohol) Comments No Sex and Gender Information Value Date Recorded Sex Assigned at Not on file Legal Sex Female 2:47 PM CDT Gender Identity Not on file Sexual Orientation Not on file Last Filed Vital Signs Vital Sign Reading Time Taken Comments Blood Pressure 137/73 05/16/2021 3:28 PM CDT Pulse 55 05/16/2021 3:28 PM CDT Temperature 36.7 C (98 F) 05/16/2021 3:28 PM CDT Respiratory Rate 14 05/16/2021 3:28 PM CDT Oxygen Saturation 96% 05/16/2021 3:28 PM CDT Inhaled Oxygen Concentration - - Weight 91.6 kg (202 lb) 05/16/2021 3:28 PM CDT Height 160 cm (5' 3 ) 05/16/2021 3:28 PM CDT Body Mass Index 35.78 05/16/2021 3:28 PM CDT Plan of Treatment Health Maintenance Due Date Last Done Comments Hepatitis C 1962 Zoster Vaccines (1 of 2) 1994 Annual Medicare Wellness Visit 2009 Dexa Scan (General) 2009 RSV Immunization or 60+ Years (1 - 1-dose 75+ series) 12/15/2019 COVID-19 Vaccine (3 - season) 2024 12/15/2020, 11/17/2020 DTaP, Tdap and Td Vaccines (2 - Td or Tdap) 06/16/2024 06/16/2014, 01/15/2004 Influenza Adult (#1) 2024 07/06/2020, 07/31/2019, 06/26/2019, Additional history exists Pneumococcal Vaccine: 65+ Years Completed 08/16/2020, 09/20/2015, 10/22/2013, Additional history exists Meningococcal B Vaccine Aged Out No l onger eligible based on patient's age to complete this topic Meningococcal Vaccine Aged Out No meeta barby eligible based on patient's age to complete this topic RSV Immunizations Under 20 Months Aged Out No longer eligible based on patient's age to complete this topic Insurance [facility] Care Teams Landscape Laborer Relationship Specialty Start Date End Date [place] [address] PCP - General FAMILY PRACTICE 05/16/21
== END 2024-12-17 08:33 | disposition home or self-care (01) ==
LOC: ANHBWCAUD 08:34
PROVIDERS: PCP Family Medicine; Visit Provider Otolaryngology
DX: H90.3 Sensorineural hearing loss, bilateral (principal); R42 Dizziness and giddiness; R11.2 Nausea with vomiting, unspecified; Q17.3 Other misshapen ear
CPT/HCPCS: 92557; 92567

== ENCOUNTER 2025-01-02 15:30 | Outpatient (RCR) | payer MEDICARE, SELFPAY ==
--- NOTE | 2024-12-19 14:27 | OPREHPOC ---
Outpatient Therapy Plan of Care This is a Multidisciplinary Plan of Care that may contain components documented by all disciplines (PT, OT, and ST.) PT Problem 1 PT Problem #1 Knowledge Deficit PT Goal 1 Goal / Goal Update Ouray with HEP Target Visit 2 PT Goal 2 Goal / Goal Update Demonstrate ability to perform home frances maneuver safely Target Visit 4 PT Goal 1 Goal / Goal Update Demonstrate negative vertigo with Eber-Halpike maneuver bilaterally Target Visit 4
--- NOTE | 2024-12-19 14:28 | PTOPEVAL1 ---
Assessment and note entered by Bryan Dempsey, PT Evaluation Information Assessment Status Evaluation ICD-10 Condition Codes (PT) Dizziness and Giddiness R42,BPPV H81.12 Onset October Subjective Information Reports that she had dizziness that started about a month ago. She is getting dizziness when turning her head to far from one side to the other. The left seems to be worse. Denies dizziness when driving. In the mornings she does okay until she is up for a bit. She has had bouts of severe dizziness and nausea. Also reports that he has had an increased in headaches and sinus inflammation. She had one fall in the yard last week but no injury. Reported Pain Level Pain Score 0: Self Report Assessment PT Clinical Summary Patient presented with positive vertigo on right ear at this time with the absence of nystagmus. Patient was extensively educated in care and anatomy of procedure and demonstrated understanding. Will benefit from skilled therapy to address deficits. Plan of Care Interventions Gait Training,Neuro Re-education,Therapeutic Activities PT Services Indicated Yes Treatment Frequency and 1x/week for 4 visits Duration These treatments will address the objective and functional deficits as defined above. The patient will be advanced safely and appropriately in order for the patient to progress towards his/her prior level of function. Additional exercises will be introduced and as well as a comprehensive home exercise program upon discharge, if needed, ?to ensure carryover of functional gains achieved in the clinic. This treatment plan has been reviewed and agreement upon by the patient.
--- NOTE | 2025-01-20 08:30 | PTOPDC ---
Assessment and note entered by Bryan Dempsey, PT Evaluation Information Assessment Status Discharge - Pt Not Present ICD-10 Condition Codes (PT) Dizziness and Giddiness R42,BPPV H81.12 Onset October Subjective Information Patient contacted clinic stating that she would like to be discharged at this time. Feels she is still having some issues and wants to take some time. Elects not to proceed with vestibular therapy. Assessment PT Clinical Summary Patient to be discharged at this time per patient request. Please refer to last treatment note for discharge status. Plan of Care PT Services Indicated Yes
== END 2025-03-19 23:59 | disposition home or self-care (01) ==
LOC: ANHGOSHPT 15:30
PROVIDERS: PCP Family Medicine; Visit Provider Physician Assistant Medical
DX: H81.12 Benign paroxysmal vertigo, left ear (principal); H69.93 Unspecified Eustachian tube disorder, bilateral; H90.6 Mixed conductive and sensorineural hearing loss, bilateral
CPT/HCPCS: 95992; 97112; 97140; 97161

== ENCOUNTER 2025-01-20 22:20 | Emergency (ER) | payer MEDICARE, SELFPAY ==
--- NOTE | ~2025-01-20 | CT_ITS ---
EXAMINATION: CT brain wo con DATE: 01/20/2025 22:43 INDICATION: visual deficits . TECHNIQUE: Computed tomography (CT) of the head was performed without intravenous contrast. The mA wa s adjusted according to patient size. Iterative reconstruction technique was employed. The dose-lengt h product was 605.33 mGy-cm. COMPARISON: None. FINDINGS: No acute intracranial hemorrhage or extra-axial fluid collection. No hydrocephalus, mass, or herniation. No acute ischemic infarct. Unremarkable dural venous sinus attenuation. No acute osseous abnormality. Trace bilateral mastoid fluid, the remaining aerated spaces are clear. Mild atrophy and chronic white matter change. Atherosclerotic intracranial calcification. Bilateral l ens replacements. IMPRESSION: No acute intracranial process. Results reported telephonically to Dr. Beal by Dr. Kingston at 10:47 PM on 01/20/2025. Reviewed, dictated and finalized at location K. IMPRESSION: No acute intracranial process. Results reported telephonically to Dr. Beal by Dr. Kingston at 10:47 PM on .
--- NOTE | ~2025-01-20 | XR_ITS ---
EXAMINATION: XR chest 1V portable Exam Date/Time: 01/20/2025 23:33 CDT HISTORY: dizzy Comparison: 09/27/2021. RESULT: Lines, tubes, and devices: Right axillary surgical clips. Lungs and pleura: Clear. Cardiomediastinal silhouette: Stable. Other: No acute osseous or upper abdominal finding. IMPRESSION: No acute cardiopulmonary process. Reviewed, dictated and finalized at location K.
--- NOTE | ~2025-01-20 | CT_ITS ---
EXAMINATION: CTA brain carotid DATE: 01/20/2025 23:24 INDICATION: vertigo, blurry vision TECHNIQUE: Computed tomographic angiography (CTA) of the head and neck was performed with 100 mL Omni paque-350 intravenous contrast. Automated exposure control and iterative reconstruction technique wer e employed. The dose-length product was 1048.06 mGy-cm. Maximum intensity projection and volume rende red 3D-reconstructions were created by the technologist on a separate workstation. COMPARISON: CT brain, same date. FINDINGS: CTA HEAD: No large vessel occlusion, aneurysm, high flow vascular malformation, nidus or extravasation. Symmetr ic parenchymal enhancement. Poor filling of the left sigmoid sinus and jugular bulb, with the suggest ion of a nonocclusive filling defect extending into the proximal portion of the internal jugular vein . There is no opacification of the mid and distal left internal jugular vein, which may be related to a column of unopacified blood, or chronic thrombus or both. CTA NECK: Aortic arch and proximal great vessels: Bovine arch. Ascending aortic ectasia measuring up to 4.2 cm Atherosclerotic calcifications at the visualized aortic arch and proximal great vessels. There is susy cified and noncalcified, ulcerative appearing plaque at the origin of the left subclavian artery. Right common carotid, carotid bifurcation, and internal carotid artery: Calcified atherosclerotic heaven que at the carotid bifurcation.There is 0% stenosis of the proximal right internal carotid artery rel ative to normal distal artery lumen diameter (NASCET criteria). Left common carotid, carotid bifurcation, and internal carotid artery: Calcified atherosclerotic plaq ue at the carotid bifurcation.There is 0% stenosis of the proximal left internal carotid artery relat barbara to normal distal artery lumen diameter (NASCET criteria). Vertebral arteries: No significant plaque or stenosis. Vertebral arteries co-dominant. Other findings: 2.4 cm left thyroid nodule. Dilated central pulmonary arteries as can be seen with pu lmonary hypertension. Calcified hilar and mediastinal lymph nodes. Partially visualized enlarged righ t hilar lymph node with associated calcification. Linear metallic density foreign body in the left mi d and distal internal jugular vein with a looped configuration of the distal end. IMPRESSION: No large vessel intracranial occlusion, high-grade intracranial stenosis, or aneurysm. Poor filling of the left sigmoid sinus, jugular bulb, and proximal internal jugular vein, possibly du e to nonocclusive thrombus at those levels and/or more distal venous thrombosis. Consider MRV for fur ther evaluation/confirmation. Metallic foreign body in the mid and distal left internal jugular vein, possibly representing a fract ured guidewire or retrieval loop. Correlate with history of prior procedures. Consider left upper ext remity ultrasound to evaluate for thrombus. No carotid or vertebral artery occlusion, dissection, or significant stenosis. Short segment, nonstenotic ulcerative atheromatous plaque at the origin of the left subclavian artery . 2.4 cm left thyroid nodule, recommend nonemergent, outpatient thyroid ultrasound for further characte rization. Left hilar lymphadenopathy. Reviewed, dictated and finalized at location K. IMPRESSION: No large vessel intracranial occlusion, high-grade intracranial stenosis, or an eurysm. Poor filling of the left sigmoid sinus, jugular bulb, and proximal internal jug ular vein, possibly due to nonocclusive thrombus at those levels and/or more di stal venous thrombosis. Consider MRV for further evaluation/confirmation. Metallic foreign body in the mid and distal left internal jugular vein, possibl y representing a fractured guidewire or retrieval loop. Correlate with history of prior procedures. Consider left upper extremity ultrasound to evaluate for t hrombus. No carotid or vertebral artery occlusion, dissection, or significant stenosis. Short segment, nonstenotic ulcerative atheromatous plaque at the origin of the left subclavian artery. 2.4 cm left thyroid nodule, recommend nonemergent, outpatient thyroid ultrasoun d for further characterization. Left hilar lymphadenopathy.
--- OUTSIDE RECORDS SUMMARY | 2025-01-20 22:23 | XMS_ITS | Encounter Summary ---
Author Organization [facility] Address 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 Gender Identity Not on file Sexual Orientation Not on file documented as of this encounter Last Filed Vital Signs Vital Sign Reading Time Taken Comments Blood Pressure 130/70 12/21/2004 10:30 AM MECHANICAL APPLICATIONS ENGINEER Pulse - - Temperature - - Respiratory Rate - - Oxygen Saturation - - Inhaled Oxygen Concentration - - Weight 95.3 kg (210 lb) 12/21/2004 10:30 AM MECHANICAL APPLICATIONS ENGINEER Height - - Body Mass Index 34.95 10/14/2003 10:30 AM MECHANICAL APPLICATIONS ENGINEER documented in this encounter Plan of Treatment Not on file documented as of this encounter Visit Diagnoses Not on filedocumented in this encounter Care Teams Health Lead Relationship Specialty Start Date End Date Smith Islas MD [address] [place] [address] PCP - General 10/22/03 07/11/15 documented as of this encounter
--- OUTSIDE RECORDS SUMMARY | 2025-01-20 22:23 | XMS_ITS | Encounter Summary ---
Author Organization [facility] Address 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
--- OUTSIDE RECORDS SUMMARY | 2025-01-20 22:23 | XMS_ITS | Encounter Summary ---
Author Organization [facility] Address [address] [place] [address] Care Team Providers Care Area Intelligence Technician Name Role Phone Smith Islas MD Primary Care Provider [phone] Encounter Details Date Type Department Care Team (Late st Contact Info) Description 10/04/2007 Outpatient [facility] Internal Medicine [address] [address] Smith Islas MD [address] [place] [phone] Social History Tobacco Use Types Packs/Day Years Used Date Smoking Tobacco: Never Assessed Comments Unknown Sex and Gender Information Value Date Recorded Sex Assigned at Not on file 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
--- OUTSIDE RECORDS SUMMARY | 2025-01-20 22:23 | XMS_ITS | Encounter Summary ---
Author Organization [facility] Address 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
--- OUTSIDE RECORDS SUMMARY | 2025-01-20 22:23 | XMS_ITS | Encounter Summary ---
Author Organization [facility] Address [address] [place] [address] Care Team Providers Care Talent Director Name Role Phone Smith Islas MD Primary Care Provider [phone] Encounter Details Date Type Department Care Team (Late st Contact Info) Description 08/04/2004 Outpatient [facility] Internal Medicine [address] [address] Smith Islas MD [address] [place] [address] Social History Tobacco Use Types Packs/Day Years Used Date Smoking Tobacco: Never Assessed Comments Unknown Sex and Gender Information Value Date Recorded Sex Assigned at Not on file Legal Sex Female 3:30 AM THERMODYNAMICS PROFESSOR Gender Identity Not on file Sexual Orientation Not on file documented as of this encounter Plan of Treatment Not on file documented as of this encounter Visit Diagnoses Not on filedocumented in this encounter Care Teams Talent Director Relationship Specialty Start Date End Date Smith Islas MD [address] [place] [address] [address] [place] [address] PCP - General 10/22/03 07/11/15 documented as of this encounter
--- OUTSIDE RECORDS SUMMARY | 2025-01-20 22:23 | XMS_ITS | Encounter Summary ---
Author Organization [facility] Address [address] [place] [address] Care Team Providers Care Syrup Mixer Helper Name Role Phone Smith Islas MD Primary Care Provider [phone] Encounter Details Date Type Department Care Team (Latest Contact Info) Description 01/20/2004 Outpatient Historical [facility] Davonte Bermudez MD [address] [facility] [address] [place] [address] ARTHRODESIS STATUS (Primary Dx) Social History Tobacco Use Types Packs/Day Years Used Date Smoking Tobacco: Never Assessed Comments Unknown Sex and Gender Information Value Date Recorded Sex Assigned at Not on file Legal Sex Female 3:30 AM DIRECTOR FAMILY Gender Identity Not on file Sexual Orientation Not on file documented as of this encounter Plan of Treatment Not on file documented as of this encounter Visit Diagnoses Diagnosis Arthrodesis status- Primary documented in this encounter Care Teams Syrup Mixer Helper Relationship Specialty Start Date End Date Smith Islas MD [address] [place] [address] [address] [place] [phone] PCP - General 10/22/03 07/11/15 documented as of this encounter
--- OUTSIDE RECORDS SUMMARY | 2025-01-20 22:23 | XMS_ITS | Encounter Summary ---
Author Organization [facility] Address [address] [place] [address] Care Team Providers Care State Superintendent Of Schools Name Role Phone Smith Islas MD Primary Care Provider [phone] Encounter Details Date Type Department Care Team (Late st Contact Info) Description 08/04/2004 Outpatient [facility] Internal Medicine [address] [address] Smith Islas MD [address] [place] [address] Social History Tobacco Use Types Packs/Day Years Used Date Smoking Tobacco: Never Assessed Comments Unknown Sex and Gender Information Value Date Recorded Sex Assigned at Not on file Legal Sex Female 3:30 AM SURGICAL SERVICES MANAGER Gender Identity Not on file Sexual Orientation Not on file documented as of this encounter Plan of Treatment Not on file documented as of this encounter Visit Diagnoses Not on filedocumented in this encounter Care Teams State Superintendent Of Schools Relationship Specialty Start Date End Date Smith Islas MD [address] [place] [address] [address] [place] [address] PCP - General 10/22/03 07/11/15 documented as of this encounter
--- OUTSIDE RECORDS SUMMARY | 2025-01-20 22:23 | XMS_ITS | Encounter Summary ---
Author Organization [facility] Address [address] [place] [address] Care Team Providers Care Marine Service Manager Name Role Phone Smith Islas MD Primary Care Provider [phone] Encounter Details Date Type Department Care Team (Late st Contact Info) Description 12/23/2003 Outpatient Historical [facility] Internal Medicine [address] [address] Smith Islas MD [address] [place] [address] Social History Tobacco Use Types Packs/Day Years Used Date Smoking Tobacco: Never Assessed Comments Unknown Sex and Gender Information Value Date Recorded Sex Assigned at Not on file Legal Sex Female 3:30 AM WATER PROJECT MANAGER Gender Identity Not on file Sexual Orientation Not on file documented as of this encounter Last Filed Vital Signs Vital Sign Reading Time Taken Comments Blood Pressure 162/90 12/23/2003 11:00 AM WATER PROJECT MANAGER Pulse - - Temperature 36.3 C (97.3 F) 12/23/2003 11:00 AM WATER PROJECT MANAGER Respiratory Rate - - Oxygen Saturation - - Inhaled Oxygen Concentration - - Weight 96.2 kg (212 lb) 12/23/2003 11:00 AM WATER PROJECT MANAGER Height - - Body Mass Index 35.28 10/14/2003 10:30 AM WATER PROJECT MANAGER documented in this encounter Plan of Treatment Not on file documented as of this encounter Visit Diagnoses Not on filedocumented in this encounter Care Teams Marine Service Manager Relationship Specialty Start Date End Date Smith Islas MD [address] [place] [phone] PCP - General 10/22/03 07/11/15 documented as of this encounter
--- OUTSIDE RECORDS SUMMARY | 2025-01-20 22:23 | XMS_ITS | Encounter Summary ---
Author Organization [facility] Address [address] [place] [address] Care Team Providers Care Cashier Checker Name Role Phone Becka Escobedo MD Primary Care Provider [phone] Encounter Details Date Type Department Care Team (Late st Contact Info) Description 08/07/2007 Orders Only [facility] Internal Medicine [address] [address] Becka Escobedo MD [address] [place] [address] Social History Tobacco Use Types Packs/Day Years Used Date Smoking Tobacco: Never Assessed Comments Unknown Sex and Gender Information Value Date Recorded Sex Assigned at Not on file Legal Sex Female 3:30 AM ASSISTANT BROKER Gender Identity Not on file Sexual Orientation Not on file documented as of this encounter Progress Notes * Becka Escobedo MD - 02/06/2008 6:00 PM CDT CENTRAL TEST SCHEDULING DATE: AUG 07, 2007 Note created by: Rossi Herrera E 01:53 p Patient Name : MORRIS STOKES Address: [address] [address] D.O.B: 1945 SSN: [id number] Parent/Guardian if applicable: Patient Insurance: [employer] ID#: [id number] Group#: ORDER(S) #: [id number] xray wrist PLEASE SCHEDULE THE APPOINTMENT AT THE FOLLOWING LOCATION: [facility] [phone]. SPECIAL SCHEDULING INSTRUCTIONS: walk in ORDERING PHYSICIAN: BECKA ESCOBEDO MD OFFICE STEEL RIGGER & PHONE: Rossi Herrera E * Becka [...] tenderness.extensive bruising tender MUSCULOSKELETAL EXAM: right lat backup sawyer, mild central ls tender, le ok, left [...] mgt fot now LAB ORDERS: Order number: [id number] Test Ordered: XRAY WRIST LEFT 459.89-ECCYHMOSIS tyl /vicodin prn, reassess, review hospital REQUESTING OLD RECORDS: . recent lab from [facility] Patient Education: The patient was allowed to ask questions to stated satisfaction. RETURN VISIT : Instructed to call if not improving. Electronically Signed by: Becka Escobedo MD on Sunday, August 07, 2007 documented in this encounter Plan of Treatment Not on file documented as of this encounter Visit Diagnoses Not on filedocumented in this encounter Care Teams Cashier Checker Relationship Specialty Start Date End Date Becka Escobedo MD [address] [place] [address] PCP - General 10/22/03 07/11/15 documented as of this encounter
--- OUTSIDE RECORDS SUMMARY | 2025-01-20 22:23 | XMS_ITS | Encounter Summary ---
Author Organization [facility] Address [address] [place] [address] Care Team Providers Care Multi Site Leasing Consultant Name Role Phone Smith Islas MD Primary Care Provider [phone] Encounter Details Date Type Department Care Team (Late st Contact Info) Description 02/26/2004 Outpatient Historical [facility] Internal Medicine [address] [address] Smith Islas MD [address] [place] [address] Social History Tobacco Use Types Packs/Day Years Used Date Smoking Tobacco: Never Assessed Comments Unknown Sex and Gender Information Value Date Recorded Sex Assigned at Not on file Legal Sex Female 3:30 AM DEV OPS ENGINEER Gender Identity Not on file Sexual Orientation Not on file documented as of this encounter Plan of Treatment Not on file documented as of this encounter Visit Diagnoses Not on filedocumented in this encounter Care Teams Multi Site Leasing Consultant Relationship Specialty Start Date End Date Smith Islas MD [address] [place] [address] [address] [place] [address] PCP - General 10/22/03 07/11/15 documented as of this encounter
--- OUTSIDE RECORDS SUMMARY | 2025-01-20 22:23 | XMS_ITS | Encounter Summary ---
Author Organization [facility] Address [address] [place] [address] Care Team Providers Care Engineering Drafter Name Role Phone Smith Islas MD Primary Care Provider [phone] Encounter Details Date Type Department Care Team (Late st Contact Info) Description 09/21/2004 Outpatient Historical [facility] Internal Medicine [address] [address] Smith Islas MD [address] [place] [address] Social History Tobacco Use Types Packs/Day Years Used Date Smoking Tobacco: Never Assessed Comments Unknown Sex and Gender Information Value Date Recorded Sex Assigned at Not on file Legal Sex Female 3:30 AM TILE LAYER DRAINAGE Gender Identity Not on file Sexual Orientation Not on file documented as of this encounter Last Filed Vital Signs Vital Sign Reading Time Taken Comments Blood Pressure 112/70 09/21/2004 11:00 AM TILE LAYER DRAINAGE Pulse - - Temperature 36.1 C (96.9 F) 09/21/2004 11:00 AM TILE LAYER DRAINAGE Respiratory Rate - - Oxygen Saturation - - Inhaled Oxygen Concentration - - Weight 96.2 kg (212 lb) 09/21/2004 11:00 AM TILE LAYER DRAINAGE Height - - Body Mass Index 35.28 10/14/2003 10:30 AM TILE LAYER DRAINAGE documented in this encounter Plan of Treatment Not on file documented as of this encounter Visit Diagnoses Not on filedocumented in this encounter Care Teams Engineering Drafter Relationship Specialty Start Date End Date Smith Islas MD [address] [place] [phone] PCP - General 10/22/03 07/11/15 documented as of this encounter
--- OUTSIDE RECORDS SUMMARY | 2025-01-20 22:23 | XMS_ITS | Encounter Summary ---
Author Organization [facility] Address [address] [place] [address] Care Team Providers Care Oncology Social Worker Name Role Phone Smith Islas MD Primary Care Provider [phone] Encounter Details Date Type Department Care Team (Late st Contact Info) Description 01/15/2004 Outpatient [facility] Internal Medicine [address] [address] Smith Islas MD [address] [place] [address] Social History Tobacco Use Types Packs/Day Years Used Date Smoking Tobacco: Never Assessed Comments Unknown Sex and Gender Information Value Date Recorded Sex Assigned at Not on file Legal Sex Female 3:30 AM MACHINE INSTALLER Gender Identity Not on file Sexual Orientation Not on file documented as of this encounter Plan of Treatment Not on file documented as of this encounter Visit Diagnoses Not on filedocumented in this encounter Care Teams Oncology Social Worker Relationship Specialty Start Date End Date Smith Islas MD [address] [place] [address] [address] [place] [address] PCP - General 10/22/03 07/11/15 documented as of this encounter
--- OUTSIDE RECORDS SUMMARY | 2025-01-20 22:23 | XMS_ITS | Encounter Summary ---
Author Organization [facility] Address [address] [place] [address] Care Team Providers Care Perinatal Nurse Name Role Phone Smith Islas MD Primary Care Provider [phone] Encounter Details Date Type Department Care Team (Late st Contact Info) Description 08/04/[address] [facility] Internal Medicine [address] [address] Smith Islas MD [address] [place] [address] Social History Tobacco Use Types Packs/Day Years Used Date Smoking Tobacco: Never Assessed Comments Unknown Sex and Gender Information Value Date Recorded Sex Assigned at Not on file Legal Sex Female 3:30 AM BUTTON TUFTER Gender Identity Not on file Sexual Orientation Not on file documented as of this encounter Plan of Treatment Not on file documented as of this encounter Visit Diagnoses Not on filedocumented in this encounter Care Teams Perinatal Nurse Relationship Specialty Start Date End Date Smith Islas MD [address] [place] [address] [address] [place] [address] PCP - General 10/22/03 07/11/15 documented as of this encounter
--- OUTSIDE RECORDS SUMMARY | 2025-01-20 22:23 | XMS_ITS | Encounter Summary ---
Author Organization [facility] Address [address] [place] [address] Care Team Providers Care Senior Physical Therapist Name Role Phone Becka Escobedo MD Primary Care Provider [phone] Encounter Details Date Type Department Care Team (Late st Contact Info) Description 08/20/2007 Orders Only [facility] Internal Medicine [address] [address] Becka Escobedo MD [address] [place] [address] Social History Tobacco Use Types Packs/Day Years Used Date Smoking Tobacco: Never Assessed Comments Unknown Sex and Gender Information Value Date Recorded Sex Assigned at Not on file Legal Sex Female 3:30 AM STUDENT DRIVING INSTRUCTOR Gender Identity Not on file Sexual Orientation Not on file documented as of this encounter Progress Notes * Becka Escobedo MD - 02/06/2008 7:45 PM CDT SPECIALIST REFERRAL REQUEST DATE: AUG 20, 2007 Note created by: Zara Linares C 11:40 a Patient Name : MORRIS STOKES Address: [address] [address] D.O.B: 1945 SSN: [id number] Parent/Guardian if applicable: Patient Insurance: [employer] Policy#: [id number] Group #: Best To Call : [phone] Best Time to Call : ANYTIME. May We Leave Message At That Number : YES, LEAVE MESSAGE. Referring to: ORTHOPEDICS [facility] Roht ph: [phone] fax: [phone]. PHYSICAL THERAPY/REHAB [facility] PH :[phone] Reason for referral: wrist pain, back pain and shoulder pain ORDERING PHYSICIAN : BECKA ESCOBEDO MD PRIORITY OF REFERRAL: AT PATIENT'S CONVENIENCE. OFFICE NIP WRAPPER & PHONE: Zara Linares C FOR SCHEDULING USE ONLY FIRST ATTEMPT Date:AUG 21, 2007 Anisha Clark L 09:59 a Spoke with Patient. had to [facility]ole [facility] also faxed referral to [facility] as they schedule their own. pt will susy nix back with appt dates APPOINTMENT DATE : 08/26/2007 APPOINTMENT DATE : 08/22/2007 ( Physical therapy) 08/21/07 03:58 pm Referral number: [employer] NN * Becka Escobedo MD [...] shoulder--reassess. SPECIALTY REFERRAL: ORTHOPEDICS Adrian Roth. ph: [phone] fax: [phone].wrist pain PHYSICAL THERAPY/REHAB [facility]--wrist ,back , shoulder pacheco RETURN VISIT : Instructed to call if not improving. Electronically Signed by: Becka Escobedo MD on Monday, August 20, 2007 documented in this encounter Plan of Treatment Not on file documented as of this encounter Visit Diagnoses Not on filedocumented in this encounter Care Teams Senior Physical Therapist Relationship Specialty Start Date End Date Becka Escobedo MD [address] [place] [phone] PCP - General 10/22/03 07/11/15 documented as of this encounter
--- OUTSIDE RECORDS SUMMARY | 2025-01-20 22:23 | XMS_ITS | Encounter Summary ---
Author Organization [facility] Address [address] [place] [address] Care Team Providers Care Maintenance Service Technician Name Role Phone Smith Islas MD Primary Care Provider [phone] Encounter Details Date Type Department Care Team (Late st Contact Info) Description 08/04/2004 Outpatient [facility] Internal Medicine [address] [address] Smith Islas MD [address] [place] [address] Social History Tobacco Use Types Packs/Day Years Used Date Smoking Tobacco: Never Assessed Comments Unknown Sex and Gender Information Value Date Recorded Sex Assigned at Not on file Legal Sex Female 3:30 AM YARN SPOOLER Gender Identity Not on file Sexual Orientation Not on file documented as of this encounter Plan of Treatment Not on file documented as of this encounter Visit Diagnoses Not on filedocumented in this encounter Care Teams Maintenance Service Technician Relationship Specialty Start Date End Date Smith Islas MD [address] [place] [address] [address] [place] [address] PCP - General 10/22/03 07/11/15 documented as of this encounter
--- OUTSIDE RECORDS SUMMARY | 2025-01-20 22:23 | XMS_ITS | Encounter Summary ---
Author Organization [facility] Address [address] [place] [address] Care Team Providers Care Rotary Drill Operator Name Role Phone Smith Islas MD Primary Care Provider [phone] Encounter Details Date Type Department Care Team (Late st Contact Info) Description 10/04/2007 Outpatient [facility] Internal Medicine [address] [address] Smith Islas MD [address] [place] [phone] Social History Tobacco Use Types Packs/Day Years Used Date Smoking Tobacco: Never Assessed Comments Unknown Sex and Gender Information Value Date Recorded Sex Assigned at Not on file Legal Sex Female 3:30 AM BALLOON ARTIST Gender Identity Not on file Sexual Orientation Not on file documented as of this encounter Plan of Treatment Not on file documented as of this encounter Visit Diagnoses Not on filedocumented in this encounter Care Teams Rotary Drill Operator Relationship Specialty Start Date End Date Smith Islas MD [address] [place] [address] [address] [place] [address] PCP - General 10/22/03 07/11/15 documented as of this encounter
--- OUTSIDE RECORDS SUMMARY | 2025-01-20 22:23 | XMS_ITS | Encounter Summary ---
Author Organization [employer] Address [address] [place] [address] Care Team Providers Care Equine Science Instructor Name Role Phone Smith Islas MD Primary Care Provider [phone] Encounter Details Date Type Department Care Team (Latest Contact Info) Description 12/09/2003 Outpatient [facility] Davonte Bermudez MD [address] [facility] [address] [place] [address] ARTHRODESIS STATUS (Primary Dx) Social History Tobacco Use Types Packs/Day Years Used Date Smoking Tobacco: Never Assessed Comments Unknown Sex and Gender Information Value Date Recorded Sex Assigned at Not on file Legal Sex Female 3:30 AM MED ASST Gender Identity Not on file Sexual Orientation Not on file documented as of this encounter Plan of Treatment Not on file documented as of this encounter Visit Diagnoses Diagnosis Arthrodesis status- Primary documented in this encounter Care Teams Equine Science Instructor Relationship Specialty Start Date End Date Smith Islas MD [address] [place] [address] [address] [place] [phone] PCP - General 10/22/03 07/11/15 documented as of this encounter
--- OUTSIDE RECORDS SUMMARY | 2025-01-20 22:23 | XMS_ITS | Encounter Summary ---
Author Organization [facility] Address [address] [place] [address] Care Team Providers Care Hay Stacker Name Role Phone Smith Islas MD Primary Care Provider [phone] Encounter Details Date Type Department Care Team (Late st Contact Info) Description 02/26/2004 Outpatient Historical [facility] Internal Medicine [address] [address] Smith Islas MD [address] [place] [address] Social History Tobacco Use Types Packs/Day Years Used Date Smoking Tobacco: Never Assessed Comments Unknown Sex and Gender Information Value Date Recorded Sex Assigned at Not on file Legal Sex Female 3:30 AM BAG SHOP WORKER Gender Identity Not on file Sexual Orientation Not on file documented as of this encounter Plan of Treatment Not on file documented as of this encounter Visit Diagnoses Not on filedocumented in this encounter Care Teams Hay Stacker Relationship Specialty Start Date End Date Smith Islas MD [address] [place] [address] [address] [place] [address] PCP - General 10/22/03 07/11/15 documented as of this encounter
--- OUTSIDE RECORDS SUMMARY | 2025-01-20 22:23 | XMS_ITS | Encounter Summary ---
Author Organization [facility] Address [address] [place] [address] Care Team Providers Care Hand I Cutter Name Role Phone Smith Islas MD Primary Care Provider [phone] Encounter Details Date Type Department Care Team (Late st Contact Info) Description 01/15/2004 Outpatient [facility] Internal Medicine [address] [address] Smith Islas MD [address] [place] [phone] Social History Tobacco Use Types Packs/Day Years Used Date Smoking Tobacco: Never Assessed Comments Unknown Sex and Gender Information Value Date Recorded Sex Assigned at Not on file Legal Sex Female 3:30 AM PAPER CUTTER Gender Identity Not on file Sexual Orientation Not on file documented as of this encounter Plan of Treatment Not on file documented as of this encounter Visit Diagnoses Not on filedocumented in this encounter Care Teams Hand I Cutter Relationship Specialty Start Date End Date Smith Islas MD [address] [place] [address] [address] [place] [address] PCP - General 10/22/03 07/11/15 documented as of this encounter
--- OUTSIDE RECORDS SUMMARY | 2025-01-20 22:23 | XMS_ITS | Encounter Summary ---
Author Organization [facility] Address [address] [place] [address] Care Team Providers Care Jig Grinder Name Role Phone Smith Islas MD Primary Care Provider [phone] Encounter Details Date Type Department Care Team (Late st Contact Info) Description 09/26/2004 Outpatient Historical [facility] Internal Medicine [address] [address] Smith Islas MD [address] [place] [phone] Social History Tobacco Use Types Packs/Day Years Used Date Smoking Tobacco: Never Assessed Comments Unknown Sex and Gender Information Value Date Recorded Sex Assigned at Not on file Legal Sex Female 3:30 AM FITNESS ATTENDANT Gender Identity Not on file Sexual Orientation Not on file documented as of this encounter Last Filed Vital Signs Vital Sign Reading Time Taken Comments Blood Pressure 140/80 09/26/2004 4:00 PM FITNESS ATTENDANT Pulse - - Temperature 36.1 C (97 F) 09/26/2004 4:00 PM FITNESS ATTENDANT Respiratory Rate - - Oxygen Saturation - - Inhaled Oxygen Concentration - - Weight - - Height - - Body Mass Index - - documented in this encounter Plan of Treatment Not on file documented as of this encounter Visit Diagnoses Not on filedocumented in this encounter Care Teams Jig Grinder Relationship Specialty Start Date End Date Smith Islas MD [address] [place] [phone] PCP - General 10/22/03 07/11/15 documented as of this encounter
--- OUTSIDE RECORDS SUMMARY | 2025-01-20 22:23 | XMS_ITS | Encounter Summary ---
Author Organization [facility] Address [address] [place] [address] Care Team Providers Care Pipe Organ Mechanic Apprentice Name Role Phone Smith Islas MD Primary Care Provider [phone] Encounter Details Date Type Department Care Team (Late st Contact Info) Description 08/20/2007 Outpatient [facility] Internal Medicine [address] [address] Smith Islas MD [address] [place] [phone] Social History Tobacco Use Types Packs/Day Years Used Date Smoking Tobacco: Never Assessed Comments Unknown Sex and Gender Information Value Date Recorded Sex Assigned at Not on file Legal Sex Female 3:30 AM SLICE CUTTING MACHINE OPERATOR Gender Identity Not on file Sexual Orientation Not on file documented as of this encounter Plan of Treatment Not on file documented as of this encounter Visit Diagnoses Not on filedocumented in this encounter Care Teams Pipe Organ Mechanic Apprentice Relationship Specialty Start Date End Date Smith Islas MD [address] [place] [address] [address] [place] [address] PCP - General 10/22/03 07/11/15 documented as of this encounter
--- OUTSIDE RECORDS SUMMARY | 2025-01-20 22:23 | XMS_ITS | Encounter Summary ---
Author Organization [employer] Address [address] [place] [address] Care Team Providers Care Dance Historian Name Role Phone Smith Islas MD Primary Care Provider [phone] Encounter Details Date Type Department Care Team (Late st Contact Info) Description 10/06/2004 Outpatient Historical [facility] Smith Islas MD [address] [place] [phone] ACUTE SINUSITIS NOS (Primary Dx) Social History Tobacco Use Types Packs/Day Years Used Date Smoking Tobacco: Never Assessed Comments Unknown Sex and Gender Information Value Date Recorded Sex Assigned at Not on file Legal Sex Female 3:30 AM REAL ESTATE CLOSER Gender Identity Not on file Sexual Orientation Not on file documented as of this encounter Plan of Treatment Not on file documented as of this encounter Visit Diagnoses Diagnosis Acute sinusitis, unspecified- Primary documented in this encounter Care Teams Dance Historian Relationship Specialty Start Date End Date Smith Islas MD [address] [place] [address] [address] [place] [address] PCP - General 10/22/03 07/11/15 documented as of this encounter
--- OUTSIDE RECORDS SUMMARY | 2025-01-20 22:23 | XMS_ITS | Encounter Summary ---
Author Organization [facility] Address [address] [place] [address] Care Team Providers Care Lining Cleaner Name Role Phone Smith Islas MD Primary Care Provider [phone] Encounter Details Date Type Department Care Team (Latest Contact Info) Description 10/02/2007 Outpatient Historical [facility] Internal Medicine [address] [address] Smith Islas MD [address] [place] [phone] DM w/o Complication Type II (CMS/HCC) Social History Tobacco Use Types Packs/Day Years Used Date Smoking Tobacco: Never Assessed Comments Unknown Sex and Gender Information Value Date Recorded Sex Assigned at Not on file Legal Sex Female 3:30 AM TOBACCO DRUMMER Gender Identity Not on file Sexual Orientation Not on file documented as of this encounter Plan of Treatment Not on file documented as of this encounter Procedures Procedure Name Priority Date/Time Associated Diagnosis Comments MICROALBUMIN/CREATININ E RATIO, RANDOM UR Routine 10/02/2007 9:09 AM TOBACCO DRUMMER TSH Routine 10/02/2007 9:05 AM TOBACCO DRUMMER HEMOGLOBIN A1C Routine 10/02/2007 9:05 AM TOBACCO DRUMMER LIPID PANEL Routine 10/02/2007 9:05 AM TOBACCO DRUMMER COMPREHENSIVE METABOLIC PANEL Routine 10/02/2007 9:05 AM TOBACCO DRUMMER documented in this encounter Results * MICROALBUMIN/CREATININE RATIO, RANDOM UR (10/02/2007 9:09 AM TOBACCO DRUMMER) MICROALBUMIN/C REAT RATIO, UR 4 0 - 29 mg/g creatinine INTERFACE SYSTEM 10/02/2007 9:09 AM TOBACCO DRUMMER Smith Islas MD URINE ORDERABLES Edited Performing Organization Address [facility] de Phone Number INTERFACE SYSTEM Refer to clinic/hospital department * (ABNORMAL) LIPID PANEL (10/02/2007 9:05 AM TOBACCO DRUMMER) CHOLESTEROL 199 100 - 199 mg/dL INTERFACE SYSTEM TRIGLYCERIDE 109 10 - 149 mg/dL INTERFACE SYSTEM HDL 73(H) 40 - 59 mg/dL INTERFACE SYSTEM CHOL/HDL RATIO 2.7 2.0 - 5.0 INTER FACE SYSTEM LDL CALCULATED 104(H) <=99 mg/dL INTERFACE SYSTEM LIPID PANEL COMMENT See Below INTERFACE SYSTEM Comment: The adult ATP and pediatric NCEP classifications for lipids are available on the [facility] at: [email or web address] affairs medical centerChannel Memory decatur [email or web address] Select: Lab Policies and Procedures,Current Select: Lipid Panel Interpretation 10/02/2007 9:05 AM TOBACCO DRUMMER Smith Islas MD CHEMISTRY ORDERABLES Edited Performing Organization Address [facility] de Phone Number INTERFACE SYSTEM Refer to clinic/hospital department * (ABNORMAL) COMPREHENSIVE METABOLIC PANEL (10/02/2007 9:05 AM TOBACCO DRUMMER) GLUCOSE 112(H) 65 - 99 mg/dL INTERFACE [...] and non- Americans is available on the [facility] at: [email or web address] affairs medical centerChannel Memory dec[facility] [email or web address] Select: Lab Policies and Procedures Select: Reference Ranges - GFR 10/02/2007 9:05 AM TOBACCO DRUMMER Smith Islas MD CHEMISTRY ORDERABLES Edited Performing Organization Address [facility] Phone Number INTERFACE SYSTEM Refer to clinic/hospital department * TSH (10/02/2007 9:05 AM TOBACCO DRUMMER) TSH 2.89 0.27 - 4.20 uU/mL INTERFACE SYSTEM 10/02/2007 9:05 AM TOBACCO DRUMMER Smith Islas MD CHEMISTRY ORDERABLES Edited Performing Organization Address [facility] Phone Number INTERFACE SYSTEM Refer to clinic/hospital department * (ABNORMAL) HEMOGLOBIN A1C (10/02/2007 9:05 AM TOBACCO DRUMMER) HEMOGLOBIN A1C 6.8(H) 4.1 - 6.1 % of Hgb INTERFACE SYSTEM GLUCOSE, MEAN BLOOD 165 mg/dL INTERFACE SYSTEM 10/02/2007 9:05 AM TOBACCO DRUMMER Smith Islas MD CHEMISTRY ORDERABLES Edited Performing Organization Address [facility] Co de Phone Number INTERFACE SYSTEM Refer to clinic/hospital department documented in this encounter Visit Diagnoses Diagnosis Type II or unspecified type diabetes mellitus without mention of complication, not stated as uncontrolled documented in this encounter Care Teams Lining Cleaner Relationship Specialty Start Date End Date Smith Islas MD [address] [place] [phone] PCP - General 10/22/03 07/11/15 documented as of this encounter
--- OUTSIDE RECORDS SUMMARY | 2025-01-20 22:24 | XMS_ITS | Encounter Summary ---
Author Organization [facility] Address [address] [place] [address] Care Team Providers Care Air Intelligence Officer Name Role Phone Smith Islas MD Primary Care Provider [phone] Encounter Details Date Type Department Care Team (Latest Contact Info) Description 02/26/2007 Outpatient Historical [facility] Internal Medicine [address] [address] Smith Islas MD [address] [place] [phone] DM w/o Complication Type II (CMS/HCC) (Primary Dx) Social History Tobacco Use Types Packs/Day Years Used Date Smoking Tobacco: Never Assessed Comments Unknown Sex and Gender Information Value Date Recorded Sex Assigned at Not on file Legal Sex Female 3:30 AM MEDIA REPORTER Gender Identity Not on file Sexual Orientation [...] ORDERABLES Edited Performing Organization Address [facility] Phone Number INTERFACE SYSTEM Refer to [...] classifications for lipids are available on the [facility] Intranet at: [email or web address] Select: Lab Policies and Procedures Select: Reference Ranges - Lipids 02/26/2007 8:45 AM CDT Smith Islas MD CHEMISTRY ORDERABLES Edited Performing Organization Address [facility] Phone Number INTERFACE SYSTEM Refer to clinic/hospital department * (ABNORMAL) HEMOGLOBIN A1C (02/26/2007 8:45 AM CDT) HEMOGLOBIN A1C 6.7(H) 4.1 - 6.1 % of Hgb INTERFACE SYSTEM GLUCOSE, MEAN BLOOD 161 mg/dL INTERFACE SYSTEM 02/26/2007 8:45 AM CDT Smith Islas MD CHEMISTRY ORDERABLES Edited Performing Organization Address [facility] Phone Number INTERFACE SYSTEM Refer to [...] and non- Americans is available on the [facility] Intranet at: [email or web address] Select: Lab Policies and Procedures Select: Reference Ranges - GFR 02/26/2007 8:45 AM CDT us Smith Islas MD CHEMISTRY ORDERABLES Edited INTERFACE SYSTEM Refer to clinic/hospital department documented in this encounter Visit Diagnoses Diagnosis Type II or unspecified type diabetes mellitus without mention of complication, not stated as uncontrolled- Primary documented in this encounter Care Teams Air Intelligence Officer Relationship Specialty Start Date End Date Smith Islas MD [address] [place] [address] PCP - General 10/22/03 07/11/15 documented as of this encounter
--- OUTSIDE RECORDS SUMMARY | 2025-01-20 22:24 | XMS_ITS | Encounter Summary ---
Author Organization [facility] Address [address] [place] [address] Care Team Providers Care Supervisor Computer Operations Name Role Phone Becka Escobedo MD Primary Care Provider [phone] Encounter Details Date Type Department Care Team (Late st Contact Info) Description 06/19/2007 Orders Only [facility] Internal Medicine [address] [address] Becka Escobedo MD [address] [place] [phone] Social History Tobacco Use Types Packs/Day Years Used Date Smoking Tobacco: Never Assessed Comments Unknown Sex and Gender Information Value Date Recorded Sex Assigned at Not on file Legal Sex Female 3:30 AM CHEMICAL LABORATORY ASSISTANT Gender Identity Not on file Sexual Orientation Not on file documented as of this encounter Progress Notes * Becka Escobedo MD - 02/07/2008 6:39 PM CDT CENTRAL TEST SCHEDULING DATE: JUN 19, 2007 Note created by: Mary Hagen R 12:22 p Patient Name : MORRIS STOKES Address: [address] [address] D.O.B: 1945 SSN: [id number] Parent/Guardian if applicable: Patient Insurance: [employer] ID#: [id number] Group#: ORDER(S) #: [id number] NCV/EMG yoan upper and lower extremity BEST TO CALL CELL. [phone] or home BEST TIME TO CALL: ANYTIME. MAY WE LEAVE MESSAGE AT THAT NUMBER: YES, LEAVE MESSAGE. PLEASE SCHEDULE THE APPOINTMENT AT THE FOLLOWING LOCATION: TEST SCHEDULE [facility]. TEST PRIORITY: 2 - 7 DAYS. as soon as you can ORDERING PHYSICIAN: BECKA ESCOBEDO MD OFFICE BONBON CREAM WARMER & PHONE: Mary Hagen R ORDER PRINTED [...] 06/19/2007. risks explained LAB ORDERS: Order number: [id number] Test Ordered: NCV/EMG UPPER EXTREMITY RIGHT Order number: [id number] Test Ordered: NCV/EMG LOWER EXTREMITY RIGHT Order number: [id number] Test Ordered: NCV/EMG UPPER EXTREMITY LEFT Order number: [id number] Test Ordered: NCV/EMG LOWER EXTREMITY LEFT Patient [...] on filedocumented in this encounter Care Teams Supervisor Computer Operations Relationship Specialty Start Date End Date Becka Escobedo MD [address] [place] [phone] PCP - General 10/22/03 07/11/15 documented as of this encounter
--- OUTSIDE RECORDS SUMMARY | 2025-01-20 22:24 | XMS_ITS | Encounter Summary ---
Author Organization [employer] Address [address] [place] [address] Care Team Providers Care Data Reviewer Name Role Phone Smith Islas MD Primary Care Provider [phone] Encounter Details Date Type Department Care Team (Latest Contact Info) Description 08/07/2005 Outpatient Historical [facility] Davonte Bermudez MD [address] [facility] [address] [place] [address] SPRAIN LUMBAR REGION (Primary Dx) Social History Tobacco Use Types Packs/Day Years Used Date Smoking Tobacco: Never Assessed Comments Unknown Sex and Gender Information Value Date Recorded Sex Assigned at Not on file Legal Sex Female 3:30 AM WARDROBE ATTENDANT Gender Identity Not on file Sexual Orientation Not on file documented as of this encounter Plan of Treatment Not on file documented as of this encounter Visit Diagnoses Diagnosis Sprain of lumbar region- Primary documented in this encounter Care Teams Data Reviewer Relationship Specialty Start Date End Date Smith Islas MD [address] [place] [address] [address] [place] [address] PCP - General 10/22/03 07/11/15 documented as of this encounter
--- OUTSIDE RECORDS SUMMARY | 2025-01-20 22:24 | XMS_ITS | Encounter Summary ---
Author Organization [facility] Address [address] [place] [address] Care Team Providers Care Power Station Operator Name Role Phone Smith Islas MD Primary Care Provider [phone] Encounter Details Date Type Department Care Team (Late st Contact Info) Description 05/29/2007 Outpatient Historical [facility] Internal Medicine [address] [address] Smith Islas MD [address] [place] [address] Social History Tobacco Use Types Packs/Day Years Used Date Smoking Tobacco: Never Assessed Comments Unknown Sex and Gender Information Value Date Recorded Sex Assigned at Not on file Legal Sex Female 3:30 AM IRONER SOCK Gender Identity Not on file Sexual Orientation [...] Body Mass Index 34.45 10/14/2003 10:30 AM IRONER SOCK documented in this encounter Plan of Treatment Not on file documented as of this encounter Visit Diagnoses Not on filedocumented in this encounter Care Teams Power Station Operator Relationship Specialty Start Date End Date Smith Islas MD [address] [place] [phone] PCP - General 10/22/03 07/11/15 documented as of this encounter
--- OUTSIDE RECORDS SUMMARY | 2025-01-20 22:24 | XMS_ITS | Encounter Summary ---
Author Organization [facility] Address [address] [place] [address] Care Team Providers Care Choir Director Name Role Phone Smith Islas MD Primary Care Provider [phone] Encounter Details Date Type Department Care Team (Latest Contact Info) Description 06/24/2008 Outpatient Historical [facility] Smith Islas MD [address] [facility] [address] [place] [address] DM w/o Complication Type II (CMS/HCC) Social History Tobacco Use Types Packs/Day Years Used Date Smoking Tobacco: Former Alcohol Use Standard Drinks/Week Comments No 0 (1 standard drink = 0.6 oz pur e alcohol) Comments No Sex and Gender Information Value Date Recorded Sex Assigned at Not on file Legal Sex Female 3:30 AM GROUND INSTRUCTOR BASIC Gender Identity Not on file Sexual Orientation Not on file documented as of this encounter Plan of Treatment Not on file documented as of this encounter Visit Diagnoses Diagnosis Type II or unspecified type diabetes mellitus without mention of complication, not stated as uncontrolled documented in this encounter Care Teams Choir Director Relationship Specialty Start Date End Date Smith Islas MD [address] [facility] [address] [place] [address] PCP - General 10/22/03 07/11/15 documented as of this encounter
--- OUTSIDE RECORDS SUMMARY | 2025-01-20 22:24 | XMS_ITS | Encounter Summary ---
Author Organization [facility] Address [address] [place] [address] Care Team Providers Care Psychology Teacher Name Role Phone Smith Islas MD Primary Care Provider [phone] Encounter Details Date Type Department Care Team (Late st Contact Info) Description 11/03/2005 Outpatient [facility] Internal Medicine [address] [address] Smith Islas MD [address] [place] [phone] Social History Tobacco Use Types Packs/Day Years Used Date Smoking Tobacco: Never Assessed Comments Unknown Sex and Gender Information Value Date Recorded Sex Assigned at Not on file Legal Sex Female 3:30 AM ROR ENGINEER Gender Identity Not on file Sexual Orientation Not on file documented as of this encounter Plan of Treatment Not on file documented as of this encounter Visit Diagnoses Not on filedocumented in this encounter Care Teams Psychology Teacher Relationship Specialty Start Date End Date Smith Islas MD [address] [place] [address] [address] [place] [address] PCP - General 10/22/03 07/11/15 documented as of this encounter
--- OUTSIDE RECORDS SUMMARY | 2025-01-20 22:24 | XMS_ITS | Encounter Summary ---
Author Organization [facility] Address [address] [place] [address] Care Team Providers Care Print Color Matcher Name Role Phone Smith Islas MD Primary Care Provider [phone] Encounter Details Date Type Department Care Team (Late st Contact Info) Description 06/27/2005 Outpatient Historical [facility] Internal Medicine [address] [address] Smith Islas MD [address] [place] [address] Social History Tobacco Use Types Packs/Day Years Used Date Smoking Tobacco: Never Assessed Comments Unknown Sex and Gender Information Value Date Recorded Sex Assigned at Not on file Legal Sex Female 3:30 AM PULPER Gender Identity Not on file Sexual Orientation [...] Body Mass Index 36.61 10/14/2003 10:30 AM PULPER documented in this encounter Plan of Treatment Not on file documented as of this encounter Visit Diagnoses Not on filedocumented in this encounter Care Teams Print Color Matcher Relationship Specialty Start Date End Date Smith Islas MD [address] [place] [phone] PCP - General 10/22/03 07/11/15 documented as of this encounter
--- OUTSIDE RECORDS SUMMARY | 2025-01-20 22:24 | XMS_ITS | Encounter Summary ---
Author Organization [employer] Address [address] [place] [address] Care Team Providers Care Clerk Checker Name Role Phone Smith Islas MD Primary Care Provider [phone] Encounter Details Date Type Department Care Team (Latest Contact Info) Description 08/26/2003 Outpatient Historical [facility] Davonte Bermudez MD [address] [facility] [address] [place] [address] SPONDYLOLISTHESIS (Primary Dx) Social History Tobacco Use Types Packs/Day Years Used Date Smoking Tobacco: Never Assessed Comments Unknown Sex and Gender Information Value Date Recorded Sex Assigned at Not on file Legal Sex Female 3:30 AM MANAGER INVENTORY Gender Identity Not on file Sexual Orientation Not on file documented as of this encounter Plan of Treatment Not on file documented as of this encounter Visit Diagnoses Diagnosis Congenital spondylolisthesis- Primary documented in this encounter Care Teams Clerk Checker Relationship Specialty Start Date End Date Smith Islas MD [address] [place] [address] [address] [place] [phone] PCP - General 10/22/03 07/11/15 documented as of this encounter
--- OUTSIDE RECORDS SUMMARY | 2025-01-20 22:24 | XMS_ITS | Encounter Summary ---
Author Organization [facility] Address [address] [place] [address] Care Team Providers Care Benefit Authorizer Name Role Phone Smith Islas MD Primary Care Provider [phone] Encounter Details Date Type Department Care Team (Late st Contact Info) Description 10/24/2005 Orders Only [facility] Internal Medicine [address] [address] Smith Islas MD [address] [place] [phone] Social History Tobacco Use Types Packs/Day Years Used Date Smoking Tobacco: Never Assessed Comments Unknown Sex and Gender Information Value Date Recorded Sex Assigned at Not on file Legal Sex Female 3:30 AM MEDICAL HOSPITAL SALES Gender Identity Not on file Sexual Orientation Not on file documented as of this encounter Plan of Treatment Not on file documented as of this encounter Visit Diagnoses Not on filedocumented in this encounter Care Teams Benefit Authorizer Relationship Specialty Start Date End Date Smith Islas MD [address] [place] [address] [address] [place] [address] PCP - General 10/22/03 07/11/15 documented as of this encounter
--- OUTSIDE RECORDS SUMMARY | 2025-01-20 22:24 | XMS_ITS | Encounter Summary ---
Author Organization [facility] Address [address] [place] [address] Care Team Providers Care Radio Disc Jockey Name Role Phone Smith Islas MD Primary Care Provider [phone] Encounter Details Date Type Department Care Team (Late st Contact Info) Description 09/11/2006 Outpatient Historical [facility] Internal Medicine [address] [address] Smith Islas MD [address] [place] [phone] Social History Tobacco Use Types Packs/Day Years Used Date Smoking Tobacco: Never Assessed Comments Unknown Sex and Gender Information Value Date Recorded Sex Assigned at Not on file Legal Sex Female 3:30 AM ACCESS TECH Gender Identity Not on file Sexual Orientation Not on file documented as of this encounter Last Filed Vital Signs Vital Sign Reading Time Taken Comments Blood Pressure 130/80 09/11/2006 10:15 AM ACCESS TECH Pulse - - Temperature 36.8 C (98.3 F) 09/11/2006 10:15 AM ACCESS TECH Respiratory Rate - - Oxygen Saturation - - Inhaled Oxygen Concentration - - Weight 98.9 kg (218 lb) 09/11/2006 10:15 AM ACCESS TECH Height - - Body Mass Index 36.28 10/14/2003 10:30 AM ACCESS TECH documented in this encounter Plan of Treatment Not on file documented as of this encounter Visit Diagnoses Not on filedocumented in this encounter Care Teams Radio Disc Jockey Relationship Specialty Start Date End Date Smith Islas MD [address] [place] [phone] PCP - General 10/22/03 07/11/15 documented as of this encounter
--- OUTSIDE RECORDS SUMMARY | 2025-01-20 22:24 | XMS_ITS | Encounter Summary ---
Author Organization [facility] Address [address] [place] [address] Care Team Providers Care Manager Family Name Role Phone Smith Islas MD Primary Care Provider Encounter Details Date Type Department Care Team (Late st Contact Info) Description 10/10/2006 Outpatient Historical [facility] Internal Medicine [address] [address] Smith Islas MD [address] [place] [phone] Social History Tobacco Use Types Packs/Day Years Used Date Smoking Tobacco: Never Assessed Comments Unknown Sex and Gender Information Value Date Recorded Sex Assigned at Not on file Legal Sex Female 3:30 AM PROJECT ASSISTANT Gender Identity Not on file Sexual Orientation Not on file documented as of this encounter Last Filed Vital Signs Vital Sign Reading Time Taken Comments Blood Pressure 124/80 10/10/2006 11:00 AM PROJECT ASSISTANT Pulse - - Temperature 36.5 C (97.7 F) 10/10/2006 11:00 AM PROJECT ASSISTANT Respiratory Rate - - Oxygen Saturation - - Inhaled Oxygen Concentration - - Weight 98.9 kg (218 lb) 10/10/2006 11:00 AM PROJECT ASSISTANT Height - - Body Mass Index 36.28 10/14/2003 10:30 AM PROJECT ASSISTANT documented in this encounter Plan of Treatment Not on file documented as of this encounter Visit Diagnoses Not on filedocumented in this encounter Care Teams Manager Family Relationship Specialty Start Date End Date Smith Islas MD [address] [place] [phone] PCP - General 10/22/03 07/11/15 documented as of this encounter
--- OUTSIDE RECORDS SUMMARY | 2025-01-20 22:24 | XMS_ITS | Encounter Summary ---
Author Organization [facility] Address [address] [place] [address] Care Team Providers Care Pattern Drafter Name Role Phone Smith Islas MD Primary Care Provider [phone] Encounter Details Date Type Department Care Team (Late st Contact Info) Description 11/30/2006 Outpatient Historical [facility] Internal Medicine [address] [address] Smith Islas MD [address] [place] [phone] Social History Tobacco Use Types Packs/Day Years Used Date Smoking Tobacco: Never Assessed Comments Unknown Sex and Gender Information Value Date Recorded Sex Assigned at Not on file Legal Sex Female 3:30 AM CARCASS TRIMMER Gender Identity Not on file Sexual Orientation Not on file documented as of this encounter Last Filed Vital Signs Vital Sign Reading Time Taken Comments Blood Pressure 120/70 11/30/2006 9:30 AM CARCASS TRIMMER Pulse - - Temperature - - Respiratory Rate - - Oxygen Saturation - - Inhaled Oxygen Concentration - - Weight 98.9 kg (218 lb) 11/30/2006 9:30 AM CARCASS TRIMMER Height - - Body Mass Index 36.28 10/14/2003 10:30 AM CARCASS TRIMMER documented in this encounter Plan of Treatment Not on file documented as of this encounter Visit Diagnoses Not on filedocumented in this encounter Care Teams Pattern Drafter Relationship Specialty Start Date End Date Smith Islas MD [address] [place] [phone] PCP - General 10/22/03 07/11/15 documented as of this encounter
--- OUTSIDE RECORDS SUMMARY | 2025-01-20 22:24 | XMS_ITS | Clinical Summary ---
Author Organization [facility] Address [address] [place] [address] Phone Care Team Providers Care Private Duty Aide Name Role Phone Provider, Not On File Primary Care Provider Unav ailable Social History Tobacco Use Types Packs/Day Years Used Date Smoking Tobacco: Never Assessed Comments Unknown Sex and Gender Information Value Date Recorded Sex Assigned at Not on file Legal Sex Female 1:37 PM FURNITURE SPRAYER Gender Identity Not on file Sexual [...] age to complete this topic Care Teams Private Duty Aide Relationship Specialty Start Date End Date Provider, Not On File [place] PCP - General 07/20/15
--- OUTSIDE RECORDS SUMMARY | 2025-01-20 22:24 | XMS_ITS | Encounter Summary ---
Author Organization [facility] Address [address] [place] [address] Care Team Providers Care Indoor Landscape Architect Name Role Phone Smith Islas MD Primary Care Provider [phone] Encounter Details Date Type Department Care Team (Late st Contact Info) Description 07/24/[address] [facility] Internal Medicine [address] [address] Smith Islas MD [address] [place] [phone] Social History Tobacco Use Types Packs/Day Years Used Date Smoking Tobacco: Never Assessed Comments Unknown Sex and Gender Information Value Date Recorded Sex Assigned at Not on file Legal Sex Female 3:30 AM STERILISATION TECHNICIAN Gender Identity Not on file Sexual [...] pos tinels left wrist NEUROLOGIC: CRANIAL NERVES: services delivery driver II-XII grossly intact. 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 discussed, mammo ok 244.9-HYPOTHYROIDISM cont med 250.00-DM II CONTROLLED recheck lab, cont diet, enc exercise 272.4-HYPERLIPIDEMIA cont med 281.8-OTHER DEFICIENCY ANEMIAS recheck lb 311-DEPRESSION try cymbalta 356.9-PERIPHERAL NEUROPATHY worse, try cymbalta, consider try gabapentin again, check b12, suspect multifactorial, pt wants to wait on emg testing LAB ORDERS: Order number: [id number] Test Ordered: VITAMIN B12 LEVEL 1719 461.9-SINUSITIS [...] on filedocumented in this encounter Care Teams Indoor Landscape Architect Relationship Specialty Start Date End Date Smith Islas MD [address] [place] [phone] PCP - General 10/22/03 07/11/15 documented as of this encounter
--- OUTSIDE RECORDS SUMMARY | 2025-01-20 22:24 | XMS_ITS | Encounter Summary ---
Author Organization [facility] Address 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
--- OUTSIDE RECORDS SUMMARY | 2025-01-20 22:24 | XMS_ITS | Encounter Summary ---
Author Organization [facility] Address [address] [place] [address] Care Team Providers Care Home Specialist Name Role Phone Smith Islas MD Primary Care Provider [phone] Encounter Details Date Type Department Care Team (Late st Contact Info) Description 02/10/2009 Outpatient Historical [facility] Smith Islas MD [address] [facility] [address] [place] [address] Cough Social History Tobacco Use Types Packs/Day Years Used Date Smoking Tobacco: Former Cigarettes Q uit: 06/26/1988 Alcohol Use Standard Drinks/Week Comments No 0 (1 standard drink = 0.6 oz pur e alcohol) Comments No Sex and Gender Information Value Date Recorded Sex Assigned at Not on file Legal Sex Female 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
--- OUTSIDE RECORDS SUMMARY | 2025-01-20 22:24 | XMS_ITS | Encounter Summary ---
Author Organization [facility] Address [address] [place] [address] Care Team Providers Care Gauger Chief Name Role Phone Smith Islas MD Primary Care Provider [phone] Encounter Details Date Type Department Care Team (Late st Contact Info) Description 08/31/2006 Outpatient Historical [facility] Internal Medicine [address] [address] Smith Islas MD [address] [place] [phone] Social History Tobacco Use Types Packs/Day Years Used Date Smoking Tobacco: Never Assessed Comments Unknown Sex and Gender Information Value Date Recorded Sex Assigned at Not on file Legal Sex Female 3:30 AM CHILDCARE CENTER DIRECTOR Gender Identity Not on file Sexual Orientation Not on file documented as of this encounter Last Filed Vital Signs Vital Sign Reading Time Taken Comments Blood Pressure 130/80 08/31/2006 9:30 AM CHILDCARE CENTER DIRECTOR Pulse - - Temperature - - Respiratory Rate - - Oxygen Saturation - - Inhaled Oxygen Concentration - - Weight 98 kg (216 lb) 08/31/2006 9:30 AM CHILDCARE CENTER DIRECTOR Height - - Body Mass Index 35.94 10/14/2003 10:30 AM CHILDCARE CENTER DIRECTOR documented in this encounter Plan of Treatment Not on file documented as of this encounter Visit Diagnoses Not on filedocumented in this encounter Care Teams Gauger Chief Relationship Specialty Start Date End Date Smith Islas MD [address] [place] [phone] PCP - General 10/22/03 07/11/15 documented as of this encounter
--- OUTSIDE RECORDS SUMMARY | 2025-01-20 22:24 | XMS_ITS | Encounter Summary ---
Author Organization [facility] Address [address] [place] [address] Care Team Providers Care Sterile Processing Technician Name Role Phone Smith Islas MD Primary Care Provider [phone] Encounter Details Date Type Department Care Team (Late st Contact Info) Description 08/04/2005 Outpatient Historical [facility] Internal Medicine [address] [address] Smith Islas MD [address] [place] [phone] Social History Tobacco Use Types Packs/Day Years Used Date Smoking Tobacco: Never Assessed Comments Unknown Sex and Gender Information Value Date Recorded Sex Assigned at Not on file Legal Sex Female 3: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 Gender Identity Not on file Sexual Orientation Not on file documented as of this encounter Last Filed Vital Signs Vital Sign Reading Time Taken Comments Blood Pressure 120/80 08/04/2005 9:45 AM EQUIPMENT STERILIZER Pulse - - Temperature - - Respiratory Rate - - Oxygen Saturation - - Inhaled Oxygen Concentration - - Weight 102.5 kg (226 lb) 08/04/2005 9:45 AM EQUIPMENT STERILIZER Height - - Body Mass Index 37.61 10/14/2003 10: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 STERILIZER documented in this encounter Plan of Treatment Not on file documented as of this encounter Visit Diagnoses Not on filedocumented in this encounter Care Teams Sterile Processing Technician Relationship Specialty Start Date End Date Smith Islas MD [address] [place] [phone] PCP - General 10/22/03 07/11/15 documented as of this encounter
--- OUTSIDE RECORDS SUMMARY | 2025-01-20 22:24 | XMS_ITS | Encounter Summary ---
Author Organization [facility] Address [address] [place] [address] Care Team Providers Care Meat And Seafood Clerk Name Role Phone Smith Islas MD Primary Care Provider [phone] Encounter Details Date Type Department Care Team (Latest Contact Info) Description 05/29/2007 Outpatient Historical [facility] Internal Medicine [address] [address] Smith Islas MD [address] [place] [phone] DM w/o Complication Type II (CMS/HCC) (Primary Dx) Social History Tobacco Use Types Packs/Day Years Used Date Smoking Tobacco: Never Assessed Comments Unknown Sex and Gender Information Value Date Recorded Sex Assigned at Not on file Legal 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 Female 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 Gender Identity Not on file Sexual [...] MD CHEMISTRY ORDERABLES Edited Performing Organization Address City/[facility] [address]/ZIP Co de Phone Number INTERFACE SYSTEM Refer to clinic/hospital department * TSH (05/29/2007 8:22 AM CDT) TSH 3.21 0.27 - 4.20 uU/mL INTERFACE SYSTEM 05/29/2007 8:22 AM CDT Smith Islas MD CHEMISTRY ORDERABLES Edited Performing Organization Address [facility] [address]/[facility] de Phone Number INTERFACE SYSTEM Refer to [...] and non- Americans is available on the [facility] Intranet at: [email or web address] Select: Lab Policies and Procedures Select: Reference Ranges - GFR 05/29/2007 8:22 AM CDT Smith Islas MD CHEMISTRY ORDERABLES Edited Performing Organization Address [facility] [address]/[facility] de Phone Number INTERFACE SYSTEM Refer to [...] classifications for lipids are available on the [facility] Intranet at: [email or web address] Select: Lab Policies and Procedures,Current Select: Lipid Panel Interpretation 05/29/2007 8:22 AM CDT Result [facility] Smith Islas MD CHEMISTRY ORDERABLES Edited Performing Organization Address [facility] [address]/[facility] de Phone Number INTERFACE SYSTEM Refer to clinic/hospital department documented in this encounter Visit Diagnoses Diagnosis Type II or unspecified type diabetes mellitus without mention of complication, not stated as uncontrolled- Primary documented in this encounter Care Teams Meat And Seafood Clerk Relationship Specialty Start Date End Date Smith Islas MD [address] [place] [phone] PCP - General 10/22/03 07/11/15 documented as of this encounter
--- OUTSIDE RECORDS SUMMARY | 2025-01-20 22:24 | XMS_ITS | Encounter Summary ---
Author Organization [facility] Address [address] [place] [address] Care Team Providers Care It Security Engineer Name Role Phone Smith Islas MD Primary Care Provider [phone] Encounter Details Date Type Department Care Team (Late st Contact Info) Description 01/15/2007 Orders Only [facility] Internal Medicine [address] [address] Smith Islas MD [address] [place] [phone] Social History Tobacco Use Types Packs/Day Years Used Date Smoking Tobacco: Never Assessed Comments Unknown Sex and Gender Information Value Date Recorded Sex Assigned at Not on file Legal Sex Female 3:30 AM DEPARTMENTAL 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 PHARMACY NUMBER: [phone] SECTION 1: REQUESTED ACTION licasl 01/15/07 at [...] on filedocumented in this encounter Care Teams It Security Engineer Relationship Specialty Start Date End Date Smith Islas MD [address] [place] [phone] PCP - General 10/22/03 07/11/15 documented as of this encounter
--- OUTSIDE RECORDS SUMMARY | 2025-01-20 22:24 | XMS_ITS | Encounter Summary ---
Author Organization [facility] Address 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 LAB ORDERS: 3 mo Order number: [id number] Test Ordered: COMPREHENSIVE METABOLIC PANEL W/ GLOMERULAR FILTRATION RATE, ESTIMATED (EGFR) 70404 Order number: [id number] Test Ordered: HEMOGLOBIN A1c 496 Order number: [id number] Test Ordered: LIPID PANEL 7600 Order number: [id number] Test Ordered: TSH 899 311-DEPRESSION doing better [...] on filedocumented in this encounter Care Teams Driller Portable Relationship Specialty Start Date End Date Smith Islas MD [address] [place] [phone] PCP - General 10/22/03 07/11/15 documented as of this encounter
--- OUTSIDE RECORDS SUMMARY | 2025-01-20 22:24 | XMS_ITS | Encounter Summary ---
Author Organization [facility] Address [address] [place] [address] Care Team Providers Care Hotel Attendant Name Role Phone Smith Islas MD Primary Care Provider [phone] Encounter Details Date Type Department Care Team (Latest Contact Info) Description 11/10/2003 Outpatient [facility] Davonte Bermudez MD [address] [facility] [address] [place] [address] ARTHRODESIS STATUS (Primary Dx) Social History Tobacco Use Types Packs/Day Years Used Date Smoking Tobacco: Never Assessed Comments Unknown Sex and Gender Information Value Date Recorded Sex Assigned at Not on file Legal Sex Female 3:30 AM BOTTOM CAGER Gender Identity Not on file Sexual Orientation Not on file documented as of this encounter Plan of Treatment Not on file documented as of this encounter Visit Diagnoses Diagnosis Arthrodesis status- Primary documented in this encounter Care Teams Hotel Attendant Relationship Specialty Start Date End Date Smith Islas MD [address] [place] [address] [address] [place] [phone] PCP - General 10/22/03 07/11/15 documented as of this encounter
--- OUTSIDE RECORDS SUMMARY | 2025-01-20 22:24 | XMS_ITS | Encounter Summary ---
Author Organization [facility] Address 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
--- OUTSIDE RECORDS SUMMARY | 2025-01-20 22:24 | XMS_ITS | Encounter Summary ---
Author Organization [facility] Address [address] [place] [address] Care Team Providers Care Gear Inspector Name Role Phone Becka Escobedo MD Primary Care Provider [phone] Encounter Details Date Type Department Care Team (Latest Contact Info) Description 01/12/2009 Outpatient Historical [facility] Becka Mcghee MD [address] [place] [phone] Malignant Neoplasm of Breast (Female), Unspecified Site (CMS/HCC) Social History Tobacco Use Types Packs/Day Years Used Date Smoking Tobacco: Former Cigarettes Q uit: 06/26/1988 Alcohol Use Standard Drinks/Week Comments No 0 (1 standard drink = 0.6 oz pur e alcohol) Comments No Sex and Gender Information Value Date Recorded Sex Assigned at Not on file 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 [place], [place] [address] Admit Date: 01/12/2009 MORRIS STOKES Sex: F Admit Prov: BECKA ESCOBEDO Date: 1945 Primary Care Prov: BECKA ESCOBEDO CMRN: [id number] Room: Kris SSN: [id number] IMAGING SERVICES Ordering Prov: BECKA ESCOBEDO Interpretation [...] site documented in this encounter Care Teams Gear Inspector Relationship Specialty Start Date End Date Becka Escobedo MD [address] [place] [phone] PCP - General 10/22/03 07/11/15 documented as of this encounter
--- OUTSIDE RECORDS SUMMARY | 2025-01-20 22:24 | XMS_ITS | Encounter Summary ---
Author Organization [facility] Address [address] [place] [address] Care Team Providers Care Garbage Collector Name Role Phone Becka Escobedo MD Primary Care Provider [phone] Encounter Details Date Type Department Care Team (Late st Contact Info) Description 03/01/2007 Orders Only [facility] Internal Medicine [address] [address] Becka Escobedo MD [address] [place] [phone] Social History Tobacco Use Types Packs/Day Years Used Date Smoking Tobacco: Never Assessed Comments Unknown Sex and Gender Information Value Date Recorded Sex Assigned at Not on file Legal Sex Female 3:30 AM WARE CLEANER Gender Identity Not on file Sexual Orientation Not on file documented as of this encounter Progress Notes * Becka Escobedo MD - 02/12/2008 3:12 PM CDT CENTRAL TEST SCHEDULING DATE: MAR 01, 2007 Note created by: Rossi Herrera E 01:04 p Patient Name : MORRIS STOKES Address: [address] [address] D.O.B: 1945 SSN: [id number] Parent/Guardian if applicable: Patient Insurance: [employer] ID#: [id number] Group#: ORDER(S) #: [id number] mamm PLEASE SCHEDULE THE APPOINTMENT AT THE FOLLOWING LOCATION: [facility] [phone]. SPECIAL SCHEDULING INSTRUCTIONS: pt to scheduled ORDERING PHYSICIAN: BECKA ESCOBEDO MD OFFICE DEPENDENCY DIRECTOR & PHONE: Rossi Herrera E * Becka [...] no significant smoking history. 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 LAB ORDERS: 3mo Order number: [id number] Test Ordered: COMPREHENSIVE METABOLIC PANEL & GFR 1112 Order number: [id number] Test Ordered: HEMOGLOBIN A1C 1814 Order number: [id number] Test Ordered: LIPID PANEL 1078 Order number: [id number] Test Ordered: TSH 1720 272.4-HYPERLIPIDEMIA discussed, cont med--try take daily 311-DEPRESSION discussed, cont med--reassess RETURN VISIT : Patient instructed to return in 3 months. Electronically Signed by: Becka Escobedo MD on Thursday, March 01, 2007 documented in this encounter Plan of Treatment Not on file documented as of this encounter Visit Diagnoses Not on filedocumented in this encounter Care Teams Garbage Collector Relationship Specialty Start Date End Date Becka Escobedo MD [address] [place] [phone] PCP - General 10/22/03 07/11/15 documented as of this encounter
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
--- OUTSIDE RECORDS SUMMARY | 2025-01-20 22:24 | XMS_ITS | Encounter Summary ---
Author Organization [facility] Address [address] [place] [address] Care Team Providers Care Pastrycook Name Role Phone Smith Islas MD Primary Care Provider [phone] Encounter Details Date Type Department Care Team (Late st Contact Info) Description 07/24/2007 Outpatient Historical [facility] Internal Medicine [address] [address] Smith Islas MD [address] [place] [address] Social History Tobacco Use Types Packs/Day Years Used Date Smoking Tobacco: Never Assessed Comments Unknown Sex and Gender Information Value Date Recorded Sex Assigned at Not on file Legal Sex Female 3:30 AM COMBAT CONTROL Gender Identity Not on file Sexual Orientation [...] Body Mass Index 34.95 10/14/2003 10:30 AM COMBAT CONTROL documented in this encounter Plan of Treatment Not on file documented as of this encounter Visit Diagnoses Not on filedocumented in this encounter Care Teams Pastrycook Relationship Specialty Start Date End Date Smith Islas MD [address] [place] [phone] PCP - General 10/22/03 07/11/15 documented as of this encounter
--- OUTSIDE RECORDS SUMMARY | 2025-01-20 22:24 | XMS_ITS | Encounter Summary ---
Author Organization [facility] Address [address] [place] [address] Care Team Providers Care Helicopter Utility Aircrewman Name Role Phone Smith Islas MD Primary Care Provider [phone] Encounter Details Date Type Department Care Team (Late st Contact Info) Description 11/03/2005 Outpatient [facility] Internal Medicine [address] [address] Smith Islas MD [address] [place] [phone] Social History Tobacco Use Types Packs/Day Years Used Date Smoking Tobacco: Never Assessed Comments Unknown Sex and Gender Information Value Date Recorded Sex Assigned at Not on file Legal Sex Female 3:30 AM HAND PROFILER Gender Identity Not on file Sexual Orientation Not on file documented as of this encounter Plan of Treatment Not on file documented as of this encounter Visit Diagnoses Not on filedocumented in this encounter Care Teams Helicopter Utility Aircrewman Relationship Specialty Start Date End Date Smith Islas MD [address] [place] [address] [address] [place] [phone] PCP - General 10/22/03 07/11/15 documented as of this encounter
--- OUTSIDE RECORDS SUMMARY | 2025-01-20 22:24 | XMS_ITS | Encounter Summary ---
Author Organization [facility] Address 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
--- OUTSIDE RECORDS SUMMARY | 2025-01-20 22:24 | XMS_ITS | Encounter Summary ---
Author Organization [facility] Address [address] [place] [address] Care Team Providers Care Associate Creative Director Name Role Phone Smith Islas MD Primary Care Provider Encounter Details Date Type Department Care Team (Late st Contact Info) Description 06/01/2006 Orders Only [facility] Internal Medicine [address] [address] Smith Islas MD [address] [place] [phone] Social History Tobacco Use Types Packs/Day Years Used Date Smoking Tobacco: Never Assessed Comments Unknown Sex and Gender Information Value Date Recorded Sex Assigned at Not on file Legal Sex Female 3:30 AM DECONTAMINATION WORKER Gender Identity Not on file Sexual [...] no significant smoking history. 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 LAB ORDERS: 3 mo Order number: [id number] Test Ordered: COMPREHENSIVE METABOLIC PANEL W/ GLOMERULAR FILTRATION RATE, ESTIMATED (EGFR) 55192 Order number: [id number] Test Ordered: LIPID PANEL 7600 Order number: [id number] Test Ordered: MICROALBUMIN/CREATININE RATIO, RANDOM URINE 6517 Order number: [id number] Test Ordered: TSH 899 Order number: [id number] Test Ordered: HEMOGLOBIN A1c 496 272.4-HYPERLIPIDEMIA try [...] on filedocumented in this encounter Care Teams Associate Creative Director Relationship Specialty Start Date End Date Smith Islas MD [address] [place] [phone] PCP - General 10/22/03 07/11/15 documented as of this encounter
--- OUTSIDE RECORDS SUMMARY | 2025-01-20 22:24 | XMS_ITS | Encounter Summary ---
Author Organization [facility] Address [address] [place] [address] Care Team Providers Care Claim Processing Specialist Name Role Phone Unavailable Primary Care Provider Unavailabl e Encounter Details Date Type Department Care Team (Late st Contact Info) Description 06/19/2023 Lab Requisition [facility] Derm[facility] Lab [address] [facility] [place] [address] Ravinder Mcgarry MD [address] [facility] [address] [address] Social History Tobacco Use Types Packs/Day Years Used Date Smoking Tobacco: Never Assessed Comments Unknown Sex and Gender Information Value Date Recorded Sex Assigned at Not on file Legal Sex Female 3:17 PM CDT Gender Identity Not on file Sexual Orientation Not on file documented as of this encounter Plan of Treatment Not on file documented as of this encounter Procedures Procedure Name Priority Date/Time Associated Diagnosis Comments DERMATOPATHOLOGY Routine 06/18/2023 3:33 AM CDT documented in this encounter Results * DERMATOPATHOLOGY (06/18/2023 3:33 AM CDT) Case Report Dermatopathology Report Case: [id number] Authorizing Provider: Ravinder Mcgarry MD Collected: 06/18/2023 03:33 AM Ordering Location: [facility] D[facility] Lab Received: 06/20/2023 06:23 AM Pathologist: Viral Potts MD Specimen: Skin, post neck 3:29 PM CDT DERMATOPATHOLOGY LABORATORY Final Diagnosis Specimen A. SKIN, post neck: SUPERFICIAL PERIVASCULAR LYMPHOCYTIC INFILTRATE WITH RARE EOSINOPHILS (L27.0) (see microscopic description and comment) 3:29 PM CDT DERMATOPATHOLOGY LABORATORY Clinical History Psoriasis vs. Tinea vs. Other. Path# [id number] 3 3:29 PM CDT DERMATOPATHOLOGY LABORATORY Gross [...] characteristic determined by the Dermatopathology Laboratory at [facility], directed by Dr. Tyrese Potts. These tests need not be, and therefore are not, approved by the [place] Food and Drug Administration. The tests are used for clinical purposes. Billing Codes Specimen Charges Stain Charges 59424 1 64060 1 3 3:29 PM CDT DERMATOPATHOLOGY LABORATORY Embedded Images 3 3:29 PM CDT DERMATOPATHOLOGY LABORATORY Pathology/Cytolo gy TISSUE SPECIMEN FROM SKIN / Unknown 06/18/2023 3:33 AM CDT 06/20/2023 6:23 AM CDT us Ravinder Mcgarry MD LAB - PATHOLOGY/CYTOLOGY ORDER OLIVER Final Result DERMATOPATHOLOGY LABORATORY [facility] - Department of Dermatology [address], [address] [phone] documented in this encounter Visit Diagnoses Not on filedocumented in this encounter
--- OUTSIDE RECORDS SUMMARY | 2025-01-20 22:24 | XMS_ITS | Encounter Summary ---
Author Organization [facility] Address [address] [place] [address] Care Team Providers Care Front Edger Name Role Phone Smith Islas MD Primary Care Provider [phone] Encounter Details Date Type Department Care Team (Late st Contact Info) Description 06/06/2005 Outpatient Historical [facility] Internal Medicine [address] [address] Smith Islas MD [address] [place] [phone] Social History Tobacco Use Types Packs/Day Years Used Date Smoking Tobacco: Never Assessed Comments Unknown Sex and Gender Information Value Date Recorded Sex Assigned at Not on file Legal Sex Female 3:30 AM LEGAL INVESTIGATOR Gender Identity Not on file Sexual Orientation Not on file documented as of this encounter Plan of Treatment Not on file documented as of this encounter Visit Diagnoses Not on filedocumented in this encounter Care Teams Front Edger Relationship Specialty Start Date End Date Smith Islas MD [address] [place] [address] [address] [place] [address] PCP - General 10/22/03 07/11/15 documented as of this encounter
--- OUTSIDE RECORDS SUMMARY | 2025-01-20 22:24 | XMS_ITS | Encounter Summary ---
Author Organization [facility] Address [address] [place] [address] Care Team Providers Care Maintenance Mechanic Millwright Name Role Phone Smith Islas MD Primary Care Provider [phone] Encounter Details Date Type Department Care Team (Late st Contact Info) Description 07/18/2005 Outpatient Historical [facility] Internal Medicine [address] [address] Smith Islas MD [address] [place] [phone] Social History Tobacco Use Types Packs/Day Years Used Date Smoking Tobacco: Never Assessed Comments Unknown Sex and Gender Information Value Date Recorded Sex Assigned at Not on file Legal Sex Female 3:30 AM SENIOR INFORMATION SECURITY ARCHITECT Gender Identity Not on file Sexual Orientation [...] Body Mass Index 36.94 10/14/2003 10:30 AM SENIOR INFORMATION SECURITY ARCHITECT documented in this encounter Plan of Treatment Not on file documented as of this encounter Visit Diagnoses Not on filedocumented in this encounter Care Teams Maintenance Mechanic Millwright Relationship Specialty Start Date End Date mSith Islas MD [address] [place] [phone] PCP - General 10/22/03 07/11/15 documented as of this encounter
--- OUTSIDE RECORDS SUMMARY | 2025-01-20 22:24 | XMS_ITS | Encounter Summary ---
Author Organization [facility] Address [address] [place] [address] Care Team Providers Care Clinical Trials Data Coordinator Name Role Phone Smith Islas MD Primary Care Provider [phone] Encounter Details Date Type Department Care Team (Late st Contact Info) Description 03/01/2007 Outpatient Historical [facility] Internal Medicine [address] [address] Smith Islas MD [address] [place] [phone] Social History Tobacco Use Types Packs/Day Years Used Date Smoking Tobacco: Never Assessed Comments Unknown Sex and Gender Information Value Date Recorded Sex Assigned at Not on file Legal Sex Female 3:30 AM SOIL EXPERT Gender Identity Not on file Sexual Orientation [...] Body Mass Index 35.45 10/14/2003 10:30 AM SOIL EXPERT documented in this encounter Plan of Treatment Not on file documented as of this encounter Visit Diagnoses Not on filedocumented in this encounter Care Teams Clinical Trials Data Coordinator Relationship Specialty Start Date End Date Smith Islas MD [address] [place] [phone] PCP - General 10/22/03 07/11/15 documented as of this encounter
--- OUTSIDE RECORDS SUMMARY | 2025-01-20 22:24 | XMS_ITS | Encounter Summary ---
Author Organization [facility] Address [address] [place] [address] Care Team Providers Care Seismic Prospecting Observer Name Role Phone Smith Islas MD Primary Care Provider [phone] Encounter Details Date Type Department Care Team (Late st Contact Info) Description 06/19/2007 Outpatient Historical [facility] Internal Medicine [address] [address] Smith Islas MD [address] [place] [phone] Social History Tobacco Use Types Packs/Day Years Used Date Smoking Tobacco: Never Assessed Comments Unknown Sex and Gender Information Value Date Recorded Sex Assigned at Not on file Legal Sex Female 3:30 AM ENGINEERING AND OPERATIONS DIRECTOR Gender Identity Not on file Sexual [...] Body Mass Index 34.28 10/14/2003 10:30 AM ENGINEERING AND OPERATIONS DIRECTOR documented in this encounter Plan of Treatment Not on file documented as of this encounter Visit Diagnoses Not on filedocumented in this encounter Care Teams Seismic Prospecting Observer Relationship Specialty Start Date End Date Smith Islas MD [address] [place] [phone] PCP - General 10/22/03 07/11/15 documented as of this encounter
--- OUTSIDE RECORDS SUMMARY | 2025-01-20 22:24 | XMS_ITS | Encounter Summary ---
Author Organization [facility] Address [address] [place] [address] Care Team Providers Care Combatant Diver Officer Name Role Phone Smith Islas MD Primary Care Provider [phone] Encounter Details Date Type Department Care Team (Late st Contact Info) Description 03/02/2006 Outpatient Historical [facility] Internal Medicine [address] [address] Smith Islas MD [address] [place] [phone] Social History Tobacco Use Types Packs/Day Years Used Date Smoking Tobacco: Never Assessed Comments Unknown Sex and Gender Information Value Date Recorded Sex Assigned at Not on file Legal Sex Female 3:30 AM ROLLER STAKER Gender Identity Not on file Sexual Orientation [...] Body Mass Index 37.61 10/14/2003 10:30 AM ROLLER STAKER documented in this encounter Plan of Treatment Not on file documented as of this encounter Visit Diagnoses Not on filedocumented in this encounter Care Teams Combatant Diver Officer Relationship Specialty Start Date End Date Smith Islas MD [address] [place] [phone] PCP - General 10/22/03 07/11/15 documented as of this encounter
--- OUTSIDE RECORDS SUMMARY | 2025-01-20 22:24 | XMS_ITS | Encounter Summary ---
Author Organization [facility] Address [address] [place] [address] Care Team Providers Care Motorized Squad Sergeant Name Role Phone Smith Islas MD Primary Care Provider [phone] Encounter Details Date Type Department Care Team (Late st Contact Info) Description 11/03/2005 Outpatient [facility] Internal Medicine [address] [address] Smith Islas MD [address] [place] [phone] Social History Tobacco Use Types Packs/Day Years Used Date Smoking Tobacco: Never Assessed Comments Unknown Sex and Gender Information Value Date Recorded Sex Assigned at Not on file Legal Sex Female 3:30 AM MANAGER TRAINING AND DEVELOPMENT Gender Identity Not on file Sexual Orientation Not on file documented as of this encounter Plan of Treatment Not on file documented as of this encounter Visit Diagnoses Not on filedocumented in this encounter Care Teams Motorized Squad Sergeant Relationship Specialty Start Date End Date Smith Islas MD [address] [place] [address] [address] [place] [address] PCP - General 10/22/03 07/11/15 documented as of this encounter
--- OUTSIDE RECORDS SUMMARY | 2025-01-20 22:24 | XMS_ITS | Encounter Summary ---
Author Organization [facility] Address [address] [place] [address] Care Team Providers Care Hedis Review Nurse Name Role Phone Smith Islas MD Primary Care Provider [phone] Encounter Details Date Type Department Care Team (Latest Contact Info) Description 05/17/2009 Outpatient Historical [facility] DRAW SITE Smith Islas MD [address] [address] DM w/o Complication Type II (CMS/HCC) Social History Tobacco Use Types Packs/Day Years Used Date Smoking Tobacco: Former Cigarettes Q uit: 06/26/1988 Alcohol Use Standard Drinks/Week Comments No 0 (1 standard drink = 0.6 oz pur e alcohol) Comments No Sex and Gender Information Value Date Recorded Sex Assigned at Not on file Legal Sex Female 3:30 AM LUGGAGE MAKER Gender Identity Not on file Sexual Orientation Not on file documented as of this encounter Plan of Treatment Not on file documented as of this encounter Visit Diagnoses Diagnosis Type II or unspecified type diabetes mellitus without mention of complication, not stated as uncontrolled documented in this encounter Care Teams Hedis Review Nurse Relationship Specialty Start Date End Date Smith Islas MD [address] [place] [address] [address] [facility] [address] PCP - General 10/22/03 07/11/15 documented as of this encounter
--- OUTSIDE RECORDS SUMMARY | 2025-01-20 22:24 | XMS_ITS | Encounter Summary ---
Author Organization [facility] Address [address] [place] [address] Care Team Providers Care Final Installer Inspector Name Role Phone Radhika Arredondo MD Primary Care Provider [phone] Torri Johnson PT Unavailable Unavail able Dustin Tim PT Unavailable Unavailab Jong Brunson CHANNEL LIP STIFFENER INSOLES Unavailable Unavaila Moriah Zapien NP Primary Care Provider [phone] Bradley Rubin MD Primary Care Provider [phone] Miscellaneous, Not In File Unavailable Unava ilTano Cates LCSW Unavailable UnavailMaryam Sargent RN Unavailable [phone] Brijesh Cardenas MD Primary Care Provider [phone] Encounter Details Date Type Department Care Team (Late st Contact Info) Description 10/14/2019 Telephone [place] [id number] [address] Noelle Robison RN Social History [...] on file Legal Sex Female 6:18 PM KAITARA TARAKA Gender Identity Not on file Sexual Orientation [...] COVID: Suspected 10/26/2023 10/26/2023 10/26/2023 7:11 PM KAITARA TARAKA documented as of this encounter Care Teams Final Installer Inspector Relationship Specialty Start Date End Date Radhika Arredondo MD [address] [facility] [address], [place] [address] PCP - General Internal Medicine 10/01/17 11/26/19 Moriah Rodriguez NP PCP - General 11/27/19 08/15/20 Bradley Rubin MD [address] [place] [address] PCP - General Family Medicine 08/16/20 07/11/22 Brijesh Cardenas MD [address] [place] [address] [address] [place] [address] PCP - General Family Medicine 07/12/22 Torri Johnson, PT Physical Therapist Physical Therapy 04/18/18 Dustin Tim, PT Physical Therapist Physical Therapy 04/26/18 Jong Reeves, CHANNEL LIP STIFFENER INSOLES Physical Therapist Physical Therapy 05/08/18 Miscellaneous, Not In File 03/17/21 Tano Purcell LCSW Metal Sponge Making Machine Operator 03/22/21 01/17/22 Maryam Cline, YAMILA [address] [place] [address] [address] Cementer Machine Applicator 07/04/21 07/27/21 documented as of this encounter
--- OUTSIDE RECORDS SUMMARY | 2025-01-20 22:24 | XMS_ITS | Encounter Summary ---
Author Organization [employer] Address [address] [place] [address] Care Team Providers Care Tuber Machine Operator Helper Name Role Phone Smith Islas MD Primary Care Provider [phone] Encounter Details Date Type Department Care Team (Late st Contact Info) Description 10/27/2008 Outpatient Historical [facility], Authorized P NO ADDRESS ON FILE Antione Orta MD [address] [place] [address] Abdominal Pain, Unspecified Site; Other [...] on file Legal Sex Female 3:30 AM BARIATRIC COORDINATOR Gender Identity Not on file Sexual Orientation Not on file documented as of this encounter Plan of Treatment Not on file documented as of this encounter Procedures Procedure Name Priority Date/Time Associated Diagnosis Comments LIPASE Stat 10/27/2008 7:19 AM BARIATRIC COORDINATOR AMYLASE Stat 10/27/2008 7:19 AM BARIATRIC COORDINATOR CBC WITH DIFFERENTIAL Stat 10/27/2008 6:21 AM BARIATRIC COORDINATOR COMPREHENSIVE METABOLIC PANEL Stat 10/27/2008 5:35 AM BARIATRIC COORDINATOR POC URINALYSIS DIPSTICK NON AUTOMATED Routine 10/27/2008 5:25 AM BARIATRIC COORDINATOR documented in this encounter Results * AMYLASE (10/27/2008 7:19 AM BARIATRIC COORDINATOR) [facility] AMYLASE 30 28 - 100 U/L [facility] Blood specimen (specimen) 10/27/2008 7:19 AM BARIATRIC COORDINATOR 10/27/2008 7:19 AM BARIATRIC COORDINATOR us Antione Orta MD CHEMISTRY ORDERABLES Final Resul t Performing Organization Address [facility] de Phone Number INTERFACE SYSTEM Refer to clinic/hospital department [facility] CLIA# [id number] [address] [place] [address] * LIPASE (10/27/2008 7:19 AM BARIATRIC COORDINATOR) [facility] LIPASE 33 13 - 60 U/L [facility] Blood specimen (specimen) 10/27/2008 7:19 AM BARIATRIC COORDINATOR 10/27/2008 7:19 AM BARIATRIC COORDINATOR Narrative INTERFACE SYSTEM - 10/27/2008 7:32 AM BARIATRIC COORDINATOR blood in lab [facility] us Antione Orta MD CHEMISTRY ORDERABLES Final Resul t Performing Organization Address [facility] de Phone Number INTERFACE SYSTEM Refer to clinic/hospital department [facility] CLIA# [id number] [address] [place] [address] * (ABNORMAL) CBC WITH DIFFERENTIAL (10/27/2008 6:21 AM BARIATRIC COORDINATOR) [facility] MCHC 33.2 31.5 - 35.5 % [facility] MCV 81.5(L) 82.0 - 99.0 fL [facility] PLATELETS 206 140 - 350 K/uL [facility] HEMOGLOBIN 14.8 11.8 - 14.8 g/dL [facility] RDW 13.9 11.5 - 14.5 % [facility] WBC 7.3 4.0 - 9.8 K/uL [facility] MCH 27.1(L) 27.2 - 32.6 pg [facility] MPV 10.7 9.3 - 12.4 fL [facility] HEMATOCRIT 44.6(H) 35.5 - 44.0 % [facility] RDW-STDEV 41.2 37.1 - 48.7 fL [facility] RBC 5.47(H) 3.90 - 4.90 M/uL [facility] LYMPHOCYTES 19 16 - 45 % [facility] LYMPHOCYTE ABSOLUTE 1.42 0.70 - 4.50 K/uL [facility] BASOPHILS 1 0 - 2 % [facility] BASOPHILS ABSOLUTE 0.07 0.00 - 0.20 K/uL [facility] MONOCYTES 9 3 - 13 % [facility] MONOCYTE ABSOLUTE 0.65 0.10 - 1.30 K/uL [facility] NEUTROPHILS 69 45 - 70 % [facility] NEUTROPHIL ABSOLUTE 5.08 1.90 - 7.00 K/uL [facility] EOSINOPHILS 2 0 - 7 % [facility] EOSINOPHIL ABSOLUTE 0.12 0.00 - 0.70 K/uL [facility] Blood specimen (specimen) 10/27/2008 6:21 AM BARIATRIC COORDINATOR 10/27/2008 6:21 AM BARIATRIC COORDINATOR Narrative INTERFACE SYSTEM - 10/27/2008 7:03 AM BARIATRIC COORDINATOR redraw of [phone] us Authorized P Er HEMATOLOGY ORDERABLES Edited INTERFACE SYSTEM Refer to clinic/hospital department [facility] CLIA# [id number] [address] [place] [address] * (ABNORMAL) COMPREHENSIVE METABOLIC PANEL (10/27/2008 5:35 AM BARIATRIC COORDINATOR) BILIRUBIN TOTAL 0.5 0.2 - 1.0 mg/dL [facility] CHLORIDE 104 96 - 108 mmol/L [facility] TOTAL PROTEIN 7.7 6.3 - 8.6 g/dL [facility] GLUCOSE 140(H) 65 - 99 mg/dL [facility] AST 34(H) 12 - 32 U/L [facility] Comment: Hemolyzed: Result may be falsely elevated. BUN 20 6 - 20 mg/dL [facility] CALCIUM 9.7 8.6 - 10.2 mg/dL [facility] ALBUMIN 4.4 3.4 - 4.8 g/dL [facility] POTASSIUM See note. 3.5 - 4.9 mmol/L [facility] Comment: Gross hemolysis present. Result unreliable. CO2 21(L) 22 - 30 mmol/L [facility] CREATININE 0.65 0.51 - 0.95 mg/dL [facility] ALT 22 0 - 31 U/L [facility] Comment: Hemolyzed: Result may be falsely elevated. SODIUM 137 135 - 145 mmol/L [facility] ALKALINE PHOSPHATASE 91 35 - 104 U/L [facility] GFR, >60 >=60 mL/min/1. 7 sq meter [facility] GFR >60 >=60 mL/min/1. 7 sq meter [facility] Comment: Modification of Diet in Renal Disease (MDRD) study formula. Estimated GFR rate interpretative information for both Americans and non- Americans is available on the [facility] Intranet at: [email or web address] Select: Lab Policies and Procedures Select: Reference Ranges - GFR Blood specimen (specimen) 10/27/2008 5:35 AM BARIATRIC COORDINATOR 10/27/2008 5:45 AM BARIATRIC COORDINATOR us Antione Orta MD CHEMISTRY ORDERABLES Edited Performing Organization Address [facility] Phone Number INTERFACE SYSTEM Refer to clinic/hospital department [facility] CLIA# [id number] [address] [place] [address] * POC URINALYSIS DIPSTICK NON AUTOMATED (10/27/2008 5:25 AM BARIATRIC COORDINATOR) BILIRUBIN UA Negative Negative [facility] PH UA 6.0 5.0 - 8.0 [facility] KETONES UA Negative Negative [facility] CLARITY UA Clear [facility] BLOOD UA Negative Negative [facility] PROTEIN UA Negative Negative [facility] LEUKOCYTE ESTERASE UA Negative Negative [facility] UROBILINOGEN UA 1+ (1 mg/dL) <=1 mg/dL [facility] SPECIFIC GRAVITY UA 1.030 1.001 - 1.030 [facility] GLUCOSE UA Negative Negative [facility] COLOR UA Yellow [facility] NITRITE UA Negative Negative [facility] Urine specimen (specimen) 10/27/2008 5:25 AM BARIATRIC COORDINATOR 10/27/2008 5:25 AM BARIATRIC COORDINATOR us Authorized P Er POINT OF CARE TESTING Final Resu lt Performing Organization Address [facility] de Phone Number INTERFACE SYSTEM Refer to clinic/hospital department [facility] CLIA# [id number] [address] [place] [address] documented in this encounter Visit Diagnoses Diagnosis [...] medications documented in this encounter Care Teams Tuber Machine Operator Helper Relationship Specialty Start Date End Date Smith Islas MD [address] [place] [address] PCP - General 10/22/03 07/11/15 documented as of this encounter
--- OUTSIDE RECORDS SUMMARY | 2025-01-20 22:24 | XMS_ITS | Referral Summary ---
Author Organization [facility] Address [address] [place] [address] Care Team Providers Care Heavy Truck Technician Name Role Phone Alex Torri Kamara PT Unavailable Unavail able Dustin Tim PT Unavailable Unavailab Jong Brunson PTA Unavailable Unavaila ble Miscellaneous, Not In File Unavailable Unava Brijesh Hdz MD Primary Care Provider [phone] Encounters Date Type Department Care Team Description 11/17/2024 1:50 PM CHIEF ANALYTICS OFFICER - 11/17/2024 11:59 PM [facility] Hospital Encounter [facility] Breast Imaging 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 She wants, we have two customer support specialist in our group if it is [...] 11/07/2017 Assessment & Plan (09/27/2020 2:05 PM CHIEF ANALYTICS OFFICER): Not well controlled, patient weight is stable [...] therapy Assessment & Plan (10/25/2020 2:09 PM CHIEF ANALYTICS OFFICER): Patient is better tolerating Januvia, will continue current dose and check a1c today Assessment & Plan (09/27/2020 2:03 PM CHIEF ANALYTICS OFFICER): Does not want to check a1c today -unknown control, patient had high carbohydrate meals during holiday season -cannot tolerate metformin 2/2 diarrhea, would like to try a different medication -will prescribe Januvia, and recheck blood sugars in 1 month to evaluate response to new therapy Assessment & Plan (08/18/2020 12:44 PM CHIEF ANALYTICS OFFICER): Stable, well controlled, will continue emphaglifozin-metformin combo pill and check A1c today Assessment & Plan (05/10/2018 8:58 AM CDT): Continue current treatment plan. Foot care discussed. 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 -continue to monitor aspatient does say she feels exhausted all of the time. Hyperlipidemia 10/26/2014 Overview (12/29/2016): Hyperlipidemia Assessment & Plan (08/18/2020 12:43 PM CHIEF ANALYTICS OFFICER): Stable, well controlled, continue atorvastatin 80 mg Essential hypertension 10/26/2014 Overview (12/29/2016): Essential hypertension Assessment & Plan (10/25/2020 2:14 PM CHIEF ANALYTICS OFFICER): Blood pressure is well controlled, no signs [...] measurement Assessment & Plan (10/25/2020 2:14 PM CHIEF ANALYTICS OFFICER): Will check TSH today, patient reprots she feels tired all of the time, but does not have any other symptoms of hypo or hyper-thyroidism. Assessment & Plan (08/18/2020 12:44 PM CHIEF ANALYTICS OFFICER): Stable, no signs or symptoms of hypo [...] depression Assessment & Plan (10/25/2020 2:12 PM CHIEF ANALYTICS OFFICER): Improving, patient has started sertraline again, feels better, mood is improving. Assessment & Plan (09/27/2020 2:04 PM CHIEF ANALYTICS OFFICER): Discussed with patient risk of GI bleeding combination of NSAIDs and sertraline, that likely occurs with all SSRIs Patient prefers emma continue with duloexetine -patient to work on some lifestyle changes for weight loss, which can also help with mood such as get out and exercise more Assessment & Plan (08/18/2020 12:48 PM CHIEF ANALYTICS OFFICER): Patient is stress related to caring for and elderly mother Unable to travel, and limited social interactions due to COVID-19 He constipation, will continue Cymbalta 60 mg Continue to follow with patient to evaluate response to therapy Osteoarthritis 10/12/2003 Assessment & Plan (10/25/2020 2:12 PM CHIEF ANALYTICS OFFICER): Not well controlled, continues to have pain [...] often do you attend chur ch or mandaeism services? Never 03/22/2021 Do you belong to any clubs o r organizations such as confucianist groups, unions, fraternal or athletic groups, or [...] place to sleep or slept in a fdc (including now)? No 03/22/2021 Personal Safety Answer Date Recorded Have you ever been in or are you currently in a harmful physical or emotional relationship or is someone making you feel afraid or unsafe? Denies 04/11/2023 Comments No Sex and Gender Information Value Date Recorded Sex Assigned at Not on file Legal Sex Female 6:18 PM CHIEF ANALYTICS OFFICER Gender Identity Not on file Sexual Orientation Not on file Last Filed Vital Signs Vital Sign Reading Time Taken Comments Blood Pressure 146/84 10/04/2024 2:04 PM CHIEF ANALYTICS OFFICER Pulse 88 10/04/2024 2:04 PM CHIEF ANALYTICS OFFICER Temperature 36.6 C (97.8 F) 10/04/2024 2:04 PM CHIEF ANALYTICS OFFICER Respiratory Rate 18 10/04/2024 2:04 PM CHIEF ANALYTICS OFFICER Oxygen Saturation 97% 10/04/2024 2:04 PM CHIEF ANALYTICS OFFICER Inhaled Oxygen Concentration - - Weight 92.5 kg (204 lb) 10/04/2024 2:04 PM CHIEF ANALYTICS OFFICER Height 160 cm (5' 3 ) 10/04/2024 2:04 PM CHIEF ANALYTICS OFFICER Body Mass Index 36.14 10/04/2024 2:04 PM CHIEF ANALYTICS OFFICER Plan of Treatment Not on file Procedures Procedure Name Priority Date/Time Associated Diagnosis Comments SCREENING MAMMOGRAM LEFT W CONG UNILATERAL ONLY Schedule Routine, Read Routine (OP Routine) 11/17/2024 2:07 PM CHIEF ANALYTICS OFFICER Screening mammogram, encounter for EGFR STAT 04/11/2023 7:19 PM CDT HEMOGLOBIN A1C Routine 03/16/2021 6:27 AM CDT DIABETIC EYE EXAM Routine 12/06/2020 LIPID PANEL Routine 10/25/2020 12:00 PM CHIEF ANALYTICS OFFICER Annual physical exam ALBUMIN CREATININE RATIO, URINE Routine 10/25/2020 12:00 PM CHIEF ANALYTICS OFFICER Type 2 diabetes mellitus with other circulatory complication, without long-term current use of insulin (HCC) DEXA AXIAL SKELETON BONE DENSITY 1 OR MORE SITES Schedule Routine, Read Routine (OP Routine) 10/06/2019 1:00 PM CHIEF ANALYTICS OFFICER Asymptomatic menopause COLONOSCOPY IMAGES 11/17/2015 from Last 3 Months or Most Recently Relevant to Health Maintenance Results * Screening Mammogram Left W Cong Unilateral Only (11/17/2024 2:07 PM CHIEF ANALYTICS OFFICER) Anatomical Region Laterality Modality Breast Left Mammography Narrative 11/19/2024 11:42 AM CHIEF ANALYTICS OFFICER Mammogram Technique: Left Breast Digital Breast Tomosynthesis, Unilateral C-view 2D Screening mammogram. Views obtained: left craniocaudal and left mediolateral oblique. Computer Aided Detection was performed. Mammogram Findings: The present examination has been compared to prior imaging studies performed at [facility] on 09/20/2021, 09/21/2022 and 11/16/2023. There are [...] compared to prior imaging studies performed at [facility] on 09/20/2021, 09/21/2022 and 11/16/2023. There are [...] BLOOD ORDERABLES Final R esult CHUCK MORRIS ([place]) [address] Department [place] [address] * (ABNORMAL) Hemoglobin A1c (03/16/2021 6:27 AM CDT) Hgb A1C 8.1(H) 4.0 - 5.6 % CHUCK Estimated Average Glucose 186 mg/dL CHUCK Comment: The ADA recommends reporting an estimated Average Glucose (eAG) with all Hemoglobin A1c results using the equation derived from a study of 507 normal and diabetic adults. Minority populations were underrepresented and children were not included. (Diabetes Care 31:6089-5821, 2008). The eAG is not equivalent to a fasting glucose. Blood specimen (specimen) 03/16/2021 6:27 AM CDT 03/16/2021 7:21 AM CDT Heike Lau NP LAB BLOOD ORDERABLES Final R esult Performing Organization Address [facility] Co de Phone Number [facility] [address] [place] [address] * Diabetic Eye Exam (12/06/2020) Historical Provider [facility] MAINTENANCE Edited Result - Final * Albumin Creatinine Ratio, Urine (10/25/2020 12:00 PM CHIEF ANALYTICS OFFICER) Pathologist [facility] Albumin Ur 25.3 mg/L CHUCK Comment: Interpretive Data No reference range established. Current interpretive data was last revised 2019. Creatinine Ur 108.3 mg/dL [facility] Comment: Interpretive Data No reference range established. Current interpretive data was last revised 2019. Albumin Creatinine Ratio, Ur 23 1 - 29 mg/g CHUCK Urine 10/25/2020 12:0 0 PM CHIEF ANALYTICS OFFICER 10/25/2020 4:42 PM CHIEF ANALYTICS OFFICER Bradley Rbuin MD LAB URINE ORDERABLES Tangela l Result Performing Organization Address [facility] Co de Phone Number [facility] [phone] [place] [address] * (ABNORMAL) Lipid panel (10/25/2020 12:00 PM CHIEF ANALYTICS OFFICER) Cholesterol 216(H) 30 - 199 mg/dL CHUCK [...] revised on 2018. Chol/HDL ratio 4 CHUCK Blood specimen (specimen) 10/25/2020 12:00 PM CHIEF ANALYTICS OFFICER 10/25/2020 4:42 PM CHIEF ANALYTICS OFFICER us Bradley Rubin MD LAB BLOOD ORDERABLES Tangela l Result CHUCK [address] Department [place] [address] * Dexa Axial Skeleton Bone Density 1 or 2 Site (10/06/2019 1:00 PM CHIEF ANALYTICS OFFICER) Anatomical Region Laterality Modality Body N/A Other 10/06/2019 1:11 PM CHIEF ANALYTICS OFFICER Impressions 10/06/2019 1:15 PM CHIEF ANALYTICS OFFICER Normal bone mineral density of the spine. Bone mineral density of the left hip falls within osteopenia range. In comparison to previous examination, there is increased bone mineral density of the spine and left hip. Electronically signed by: Janeen Riojas M.D. Narrative 10/06/2019 1:15 PM CHIEF ANALYTICS OFFICER Examination: Bone densitometry of the lumbar spine [...] to Health Maintenance Insurance AETNA MEDICARE [facility] MEDICARE Address: [facility] [id number] [place] [address] [facility] U[facility] MEDICARE ADVANTAGE [facility] MEDICARE Address: [facility] [id number] [place] [address] AETNA MEDICARE [facility] MEDICARE Address: [facility] [id number] [place] [address] [employer] MEDICARE [employer]OLD Advance Directives For more information, please contact: [phone] Documents on File Type Date Recorded Patient Case Folder Expl anation ADVANCE DIRECTIVE 03/18/2021 10:38 AM JENNIFER R OF ENTEROSTOMAL THERAPY NURSE-MEDICAL ADVANCE DIRECTIVE 08/10/2017 9:07 AM JENNIFER R OF ENTEROSTOMAL THERAPY NURSE * Full Code (Latest Code Status on File) Date Activated Date Inactivated Comments 03/15/2021 9:40 PM 03/17/2021 7:03 PM Care Teams Heavy Truck Technician Relationship Specialty Start Date End Date Brijesh Cardenas MD PCP - General Family Medicine 07/12/22 Torri Johnson, PT Physical Therapist Physical Therapy 04/18/18 Dustin Tim, PT Physical Therapist Physical Therapy 04/26/18 Jong Reeves, COMPENSATION MANAGER Physical Therapist Physical Therapy 05/08/18 Miscellaneous, Not In File 03/17/21
--- OUTSIDE RECORDS SUMMARY | 2025-01-20 22:24 | XMS_ITS | Encounter Summary ---
Author Organization [facility] Address [address] [place] [address] Care Team Providers Care Campaign Director Name Role Phone Smith Islas MD Primary Care Provider [phone] Encounter Details Date Type Department Care Team (Late st Contact Info) Description 11/21/[address] [facility] Internal Medicine [address] [address] Smith Islas MD [address] [place] [phone] Social History Tobacco Use Types Packs/Day Years Used Date Smoking Tobacco: Never Assessed Comments Unknown Sex and Gender Information Value Date Recorded Sex Assigned at Not on file Legal Sex Female 3:30 AM QUARRY MANAGER Gender Identity Not on file Sexual Orientation Not on file documented as of this encounter Last Filed Vital Signs Vital Sign Reading Time Taken Comments Blood Pressure 130/80 11/21/2005 9:45 AM QUARRY MANAGER Pulse - - Temperature 36.6 C (97.8 F) 11/21/2005 9:45 AM QUARRY MANAGER Respiratory Rate - - Oxygen Saturation - - Inhaled Oxygen Concentration - - Weight 104.3 kg (230 lb) 11/21/2005 9:45 AM QUARRY MANAGER Height - - Body Mass Index 38.27 10/14/2003 10:30 AM QUARRY MANAGER documented in this encounter Plan of Treatment Not on file documented as of this encounter Visit Diagnoses Not on filedocumented in this encounter Care Teams Campaign Director Relationship Specialty Start Date End Date Smith Islas MD [address] [place] [phone] PCP - General 10/22/03 07/11/15 documented as of this encounter
--- OUTSIDE RECORDS SUMMARY | 2025-01-20 22:24 | XMS_ITS | Encounter Summary ---
Author Organization [email or web address] Address [address] [place] [address] Care Team Providers Care Instructor Modeling Name Role Phone Smith Islas MD Primary Care Provider [phone] Encounter Details Date Type Department Care Team (Late st Contact Info) Description 10/15/2003 Outpatient Historical [facility] [address] [place] [address] Sangita Carter MD Social History Tobacco Use Types Packs/Day Years Used Date Smoking Tobacco: Never Assessed Comments Unknown Sex and Gender Information Value Date Recorded Sex Assigned at Not on file Legal Sex Female 3:30 AM SENIOR PORTFOLIO MANAGER Gender Identity Not on file Sexual Orientation Not on file documented as of this encounter Plan of Treatment Not on file documented as of this encounter Visit Diagnoses Not on filedocumented in this encounter Care Teams Instructor Modeling Relationship Specialty Start Date End Date Smith Islas MD [address] [place] [phone] PCP - General 10/22/03 07/11/15 documented as of this encounter
--- OUTSIDE RECORDS SUMMARY | 2025-01-20 22:24 | XMS_ITS | Encounter Summary ---
Author Organization [facility] Address [address] [place] [address] Care Team Providers Care Appellate Court Clerk Name Role Phone Smith Islas MD Primary Care Provider [phone] Encounter Details Date Type Department Care Team (Late st Contact Info) Description 04/09/2007 Outpatient Historical [facility] Internal Medicine [address] [address] Smith Islas MD [address] [place] [phone] Social History Tobacco Use Types Packs/Day Years Used Date Smoking Tobacco: Never Assessed Comments Unknown Sex and Gender Information Value Date Recorded Sex Assigned at Not on file Legal Sex Female 3:30 AM CRAWLER CRANE OPERATOR Gender Identity Not on file Sexual [...] Body Mass Index 34.95 10/14/2003 10:30 AM CRAWLER CRANE OPERATOR documented in this encounter Plan of Treatment Not on file documented as of this encounter Visit Diagnoses Not on filedocumented in this encounter Care Teams Appellate Court Clerk Relationship Specialty Start Date End Date Smith Islas MD [address] [place] [phone] PCP - General 10/22/03 07/11/15 documented as of this encounter
--- OUTSIDE RECORDS SUMMARY | 2025-01-20 22:24 | XMS_ITS | Encounter Summary ---
Author Organization [facility] Address [address] [place] [address] Care Team Providers Care Commercial Drone Software Developer Name Role Phone Smith Islas MD Primary Care Provider [phone] Encounter Details Date Type Department Care Team (Late st Contact Info) Description 06/06/2005 Outpatient Historical [facility] Internal Medicine [address] [address] Smith Islas MD [address] [place] [phone] Social History Tobacco Use Types Packs/Day Years Used Date Smoking Tobacco: Never Assessed Comments Unknown Sex and Gender Information Value Date Recorded Sex Assigned at Not on file Legal Sex Female 3:30 AM SEWING MACHINE REPAIRER HELPER Gender Identity Not on file Sexual Orientation Not on file documented as of this encounter Plan of Treatment Not on file documented as of this encounter Visit Diagnoses Not on filedocumented in this encounter Care Teams Commercial Drone Software Developer Relationship Specialty Start Date End Date Smith Islas MD [address] [place] [address] [address] [place] [address] PCP - General 10/22/03 07/11/15 documented as of this encounter
--- OUTSIDE RECORDS SUMMARY | 2025-01-20 22:24 | XMS_ITS | Clinical Summary ---
Author Organization [facility] Address [address] [place] [address] Care Team Providers Care Machine Ii Coremaker Name Role Phone Torri Johnson PT Unavailable Unavail able Dustin Tim PT Unavailable Unavailab Jong Brunson SUBSTITUTE CROSSING GUARD Unavailable Unavaila ble Miscellaneous, Not In File Unavailable Unava Brijesh Hdz MD Primary Care Provider [phone] Allergies Active Allergy Reactions Criticality Noted Date [...] 05/31/2021 Assessment & Plan (09/13/2021 1:57 PM SECOND GRADE TEACHER): Not well controlled, had MRSA infection requiring removal of all surgical hardware Taking hydrocodone for pain Per patient bone is healing well Home PT and home nursing of present for infusions, receiving daily vancomycin Assessment & Plan (08/10/2021 7:53 PM SECOND GRADE TEACHER): Stable improving, has completed course of antibiotics [...] encouraged to get back in with her aviation medicine specialist. She wants, we have two aviation medicine specialist in our group if it is [...] 11/07/2017 Assessment & Plan (09/27/2020 2:05 PM SECOND GRADE TEACHER): Not well controlled, patient weight is stable [...] therapy Assessment & Plan (10/25/2020 2:09 PM SECOND GRADE TEACHER): Patient is better tolerating Januvia, will continue current dose and check a1c today Assessment & Plan (09/27/2020 2:03 PM SECOND GRADE TEACHER): Does not want to check a1c today -unknown control, patient had high carbohydrate meals during holiday season -cannot tolerate metformin 2/2 diarrhea, would like to try a different medication -will prescribe Januvia, and recheck blood sugars in 1 month to evaluate response to new therapy Assessment & Plan (08/18/2020 12:44 PM SECOND GRADE TEACHER): Stable, well controlled, will continue emphaglifozin-metformin combo pill and check A1c today Assessment & Plan (05/10/2018 8:58 AM CDT): Continue current treatment plan. Foot care discussed. 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 -continue to monitor aspatient does say she feels exhausted all of the time. Hyperlipidemia 10/26/2014 Overview (12/29/2016): Hyperlipidemia Assessment & Plan (08/18/2020 12:43 PM SECOND GRADE TEACHER): Stable, well controlled, continue atorvastatin 80 mg Essential hypertension 10/26/2014 Overview (12/29/2016): Essential hypertension Assessment & Plan (10/25/2020 2:14 PM SECOND GRADE TEACHER): Blood pressure is well controlled, no signs [...] measurement Assessment & Plan (10/25/2020 2:14 PM SECOND GRADE TEACHER): Will check TSH today, patient reprots she feels tired all of the time, but does not have any other symptoms of hypo or hyper-thyroidism. Assessment & Plan (08/18/2020 12:44 PM SECOND GRADE TEACHER): Stable, no signs or symptoms of hypo [...] depression Assessment & Plan (10/25/2020 2:12 PM SECOND GRADE TEACHER): Improving, patient has started sertraline again, feels better, mood is improving. Assessment & Plan (09/27/2020 2:04 PM SECOND GRADE TEACHER): Discussed with patient risk of GI bleeding combination of NSAIDs and sertraline, that likely occurs with all SSRIs Patient prefers emma continue with duloexetine -patient to work on some lifestyle changes for weight loss, which can also help with mood such as get out and exercise more Assessment & Plan (08/18/2020 12:48 PM SECOND GRADE TEACHER): Patient is stress related to caring for and elderly mother Unable to travel, and limited social interactions due to COVID-19 He constipation, will continue Cymbalta 60 mg Continue to follow with patient to evaluate response to therapy Osteoarthritis 10/12/2003 Assessment & Plan (10/25/2020 2:12 PM SECOND GRADE TEACHER): Not well controlled, continues to have pain [...] Department Care Team Description 11/17/2024 1:50 PM SECOND GRADE TEACHER - 11/17/2024 11:59 PM SECOND GRADE TEACHER Hospital Encounter [facility] ([facility]) [address] [place] [address] Screening mammogram, encounter for Discharge Disposition: Discharge to home or self care from Last 3 Months Immunizations Immunization Administration [...] week 03/22/2021 How often do you attend [facility] or buddhism services? Never 03/22/2021 Do you belong to any clubs o r organizations such as holiness groups, unions, fraternal or athletic groups, or [...] place to sleep or slept in a halfway (including now)? No 03/22/2021 Personal Safety Answer Date Recorded Have you ever been in or are you currently in a harmful physical or emotional relationship or is someone making you feel afraid or unsafe? Denies 04/11/2023 Comments No Sex and Gender Information Value Date Recorded Sex Assigned at Not on file Legal Sex Female 6:18 PM SECOND GRADE TEACHER Gender Identity Not on file Sexual Orientation Not on file Obstetrics History Last Filed Vital Signs Vital Sign Reading Time Taken Comments Blood Pressure 146/84 10/04/2024 2:04 PM SECOND GRADE TEACHER Pulse 88 10/04/2024 2:04 PM SECOND GRADE TEACHER Temperature 36.6 C (97.8 F) 10/04/2024 2:04 PM SECOND GRADE TEACHER Respiratory Rate 18 10/04/2024 2:04 PM SECOND GRADE TEACHER Oxygen Saturation 97% 10/04/2024 2:04 PM SECOND GRADE TEACHER Inhaled Oxygen Concentration - - Weight 92.5 kg (204 lb) 10/04/2024 2:04 PM SECOND GRADE TEACHER Height 160 cm (5' 3 ) 10/04/2024 2:04 PM SECOND GRADE TEACHER Body Mass Index 36.14 10/04/2024 2:04 PM SECOND GRADE TEACHER Plan of Treatment Health Maintenance Due Date [...] Read Routine (OP Routine) 11/17/2024 2:07 PM SECOND GRADE TEACHER Screening mammogram, encounter for EGFR STAT 04/11/2023 7:19 PM CDT HEMOGLOBIN A1C Routine 03/16/2021 6:27 AM CDT DIABETIC EYE EXAM Routine 12/06/2020 LIPID PANEL Routine 10/25/2020 12:00 PM SECOND GRADE TEACHER Annual physical exam ALBUMIN CREATININE RATIO, URINE Routine 10/25/2020 12:00 PM SECOND GRADE TEACHER Type 2 diabetes mellitus with other circulatory complication, without long-term current use of insulin (HCC) DEXA AXIAL SKELETON BONE DENSITY 1 OR MORE SITES Schedule Routine, Read Routine (OP Routine) 10/06/2019 1:00 PM SECOND GRADE TEACHER Asymptomatic menopause COLONOSCOPY IMAGES 11/17/2015 from Last 3 Months or Most Recently Relevant to Health Maintenance Results * Screening Mammogram Left W Cong Unilateral Only (11/17/2024 2:07 PM SECOND GRADE TEACHER) Anatomical Region Laterality Modality Breast Left Mammography Narrative 11/19/2024 11:42 AM SECOND GRADE TEACHER Mammogram Technique: Left Breast Digital Breast Tomosynthesis, Unilateral C-view 2D Screening mammogram. Views obtained: left craniocaudal and left mediolateral oblique. Computer Aided Detection was performed. Mammogram Findings: The present examination has been compared to prior imaging studies performed at [facility] on 09/20/2021, 09/21/2022 and 11/16/2023. There [...] compared to prior imaging studies performed at [facility] on 09/20/2021, 09/21/2022 and 11/16/2023. There [...] eGFR 83 mL/min/1. 73 m2 [facility] ([place]) Comment: Interpretive Data Reference Interval Normal >/= [...] BLOOD ORDERABLES Final R esult [facility] ([place]) 1 [facility] [place] [address] * (ABNORMAL) Hemoglobin A1c (03/16/2021 6:27 AM CDT) Hgb A1C 8.1(H) 4.0 - 5.6 % [facility]ELL[facility] Estimated Average Glucose 186 mg/dL [facility] Comment: The ADA recommends reporting an estimated Average Glucose (eAG) with all Hemoglobin A1c results using the equation derived from a study of 507 normal and diabetic adults. Minority populations were underrepresented and children were not included. (Diabetes Care 31:2542-0604, 2008). The eAG is not equivalent to a fasting glucose. Blood specimen (specimen) 03/16/2021 6:27 AM CDT 03/16/2021 7:21 AM CDT Heike Lau HARBORMASTER LAB BLOOD ORDERABLES Final R esult Performing Organization Address [facility] Co de Phone Number [facility] [address] [place] [address] * Diabetic Eye Exam (12/06/2020) Historical Provider HEALTH MAINTENANCE Edited Result - Final * Albumin Creatinine Ratio, Urine (10/25/2020 12:00 PM SECOND GRADE TEACHER) Albumin Ur 25.3 mg/L [facility] Comment: Interpretive Data No reference range established. Current interpretive data was last revised 2019. Creatinine Ur 108.3 mg/dL [facility] Comment: Interpretive Data No reference range established. Current interpretive data was last revised 2019. Albumin Creatinine Ratio, Ur 23 1 - 29 mg/g [facility] Urine 10/25/2020 12:0 0 PM SECOND GRADE TEACHER 10/25/2020 4:42 PM SECOND GRADE TEACHER Bradley Rubin MD LAB URINE ORDERABLES Tangela l Result Performing Organization Address [facility] de Phone Number [facility] [address] [place] [address] * (ABNORMAL) Lipid panel (10/25/2020 12:00 PM SECOND GRADE TEACHER) Cholesterol 216(H) 30 - 199 mg/dL [facility] Comment: Interpretive Data Ages < or = [...] CHUCK Blood specimen (specimen) 10/25/2020 12:00 PM SECOND GRADE TEACHER 10/25/2020 4:42 PM SECOND GRADE TEACHER us Bradley Rubin MD LAB BLOOD ORDERABLES Tangela jose Result [facility] [address] Department [place] [address] * Dexa Axial Skeleton Bone Density 1 or 2 Site (10/06/2019 1:00 PM SECOND GRADE TEACHER) Anatomical Region Laterality Modality Body N/A Other 10/06/2019 1:11 PM SECOND GRADE TEACHER Impressions 10/06/2019 1:15 PM SECOND GRADE TEACHER Normal bone mineral density of the spine. Bone mineral density of the left hip falls within osteopenia range. In comparison to previous examination, there is increased bone mineral density of the spine and left hip. Electronically signed by: Janeen Riojas M.D. Narrative 10/06/2019 1:15 PM SECOND GRADE TEACHER Examination: Bone densitometry of the lumbar spine [...] Most Recently Relevant to Health Maintenance Insurance [facility] GOLD [facility] HMO REF UHC MEDICARE ADVANTAGE [facility] GOLD REF AETNA MEDICARE GOLD AET[employer] MEDICARE GOLD Advance Directives For more information, please contact: [phone] Documents on File Type Date Recorded Patient Merchandiser Retail Representative Expl anation ADVANCE DIRECTIVE 03/18/2021 10:38 AM JENNIFER R OF [employer] FLIPPER-MEDICAL ADVANCE DIRECTIVE 08/10/2017 9:07 AM JENNIFER R OF TIN FLIPPER * Full Code (Latest Code Status on File) Date Activated Date Inactivated Comments 03/15/2021 9:40 PM 03/17/2021 7:03 PM Care Teams Machine Ii Coremaker Relationship Specialty Start Date End Date Brijesh Cardenas MD PCP - General Family Medicine 07/12/22 Torri Johnson, PT Physical Therapist Physical Therapy 04/18/18 Dustin Tim, PT Physical Therapist Physical Therapy 04/26/18 Jogn Reeves, SUBSTITUTE CROSSING GUARD Physical Therapist Physical Therapy 05/08/18 Miscellaneous, Not In File 03/17/21
--- OUTSIDE RECORDS SUMMARY | 2025-01-20 22:24 | XMS_ITS | Encounter Summary ---
Author Organization [facility] Address [address] [place] [address] Care Team Providers Care Offset Printing Operator Name Role Phone Smith Islas MD Primary Care Provider [phone] Encounter Details Date Type Department Care Team (Late st Contact Info) Description 03/24/2005 Outpatient Historical [facility] Internal Medicine [address] [address] Smith Islas MD [address] [place] [phone] Social History Tobacco Use Types Packs/Day Years Used Date Smoking Tobacco: Never Assessed Comments Unknown Sex and Gender Information Value Date Recorded Sex Assigned at Not on file Legal Sex Female 3:30 AM BRAILLE OPERATOR Gender Identity Not on file Sexual [...] Body Mass Index 36.28 10/14/2003 10:30 AM BRAILLE OPERATOR documented in this encounter Plan of Treatment Not on file documented as of this encounter Visit Diagnoses Not on filedocumented in this encounter Care Teams Offset Printing Operator Relationship Specialty Start Date End Date Smith Islas MD [address] [place] [phone] PCP - General 10/22/03 07/11/15 documented as of this encounter
--- OUTSIDE RECORDS SUMMARY | 2025-01-20 22:24 | XMS_ITS | Encounter Summary ---
Author Organization [facility] Address [address] [place] [address] Care Team Providers Care Body Liner Name Role Phone Smith Islas MD Primary Care Provider [phone] Encounter Details Date Type Department Care Team (Late st Contact Info) Description 05/29/2007 Orders Only [facility] Internal Medicine [address] [address] Smith Islas MD [address] [place] [phone] Social History Tobacco Use Types Packs/Day Years Used Date Smoking Tobacco: Never Assessed Comments Unknown Sex and Gender Information Value Date Recorded Sex Assigned at Not on file Legal Sex Female 3:30 AM ASPHALT MIXING MACHINE OPERATOR Gender Identity Not on file [...] on filedocumented in this encounter Care Teams Body Liner Relationship Specialty Start Date End Date Smith Islas MD [address] [place] [phone] PCP - General 10/22/03 07/11/15 documented as of this encounter
--- OUTSIDE RECORDS SUMMARY | 2025-01-20 22:24 | XMS_ITS | Encounter Summary ---
Author Organization [email or web address] Address [address] [place] [address] Care Team Providers Care Sod Farmer Name Role Phone Smith Islas MD Primary Care Provider [phone] Encounter Details Date Type Department Care Team (Latest Contact Info) Description 10/22/2003 Inpatient Historical [facility] Davonte Bermudez MD [address] [facility] [address] [place] [address] SPONDYLOLISTHESIS (Primary Dx) Social History Tobacco Use Types Packs/Day Years Used Date Smoking Tobacco: Never Assessed Comments Unknown Sex and Gender Information Value Date Recorded Sex Assigned at Not on file Legal Sex Female 3:30 AM DATABASE MARKETING SPECIALIST Gender Identity Not on file Sexual Orientation Not on file documented as of this encounter Plan of Treatment Not on file documented as of this encounter Visit Diagnoses Diagnosis Congenital spondylolisthesis- Primary documented in this encounter Care Teams Sod Farmer Relationship Specialty Start Date End Date Smith Islas MD [address] [place] [address] [address] [place] [address] PCP - General 10/22/03 07/11/15 documented as of this encounter
--- OUTSIDE RECORDS SUMMARY | 2025-01-20 22:24 | XMS_ITS | Encounter Summary ---
Author Organization [facility] Address [address] [place] [address] Care Team Providers Care Review Trainer Name Role Phone Smith Islas MD Primary Care Provider [phone] Encounter Details Date Type Department Care Team (Late st Contact Info) Description 06/01/2006 Outpatient Historical [facility] Internal Medicine [address] [address] Smith Islas MD [address] [place] [phone] Social History Tobacco Use Types Packs/Day Years Used Date Smoking Tobacco: Never Assessed Comments Unknown Sex and Gender Information Value Date Recorded Sex Assigned at Not on file Legal Sex Female 3:30 AM LAND DEVELOPMENT MANAGER Gender Identity Not on file Sexual [...] Body Mass Index 36.61 10/14/2003 10:30 AM LAND DEVELOPMENT MANAGER documented in this encounter Plan of Treatment Not on file documented as of this encounter Visit Diagnoses Not on filedocumented in this encounter Care Teams Review Trainer Relationship Specialty Start Date End Date Smith Islas MD [address] [place] [phone] PCP - General 10/22/03 07/11/15 documented as of this encounter
--- OUTSIDE RECORDS SUMMARY | 2025-01-20 22:24 | XMS_ITS | Data Portability ---
Author Organization [place] - [facility], [employer] Address [address] [place] [address] Assessment Encounter Date Assessment Date Assessment LastModified [...] plan. F/U 4 weeks, sooner if needed [email or web address] Not available 12/20/2019 14:57:17 03/09/2020 03/09/2020 Medication [...] plan. F/U 12 weeks, sooner if needed [email or web address] Not available 03/09/2020 13:32:16 07/06/2020 07/06/2020 Medication [...] plan. F/U 12 weeks, sooner if needed [email or web address] Not available 07/03/2020 13:29:36 Plan of Treatment [...] Medication Orders Diflucan 150 mg tablet 2019 [email or web address] [id number], [address], [place], [place], [id number], 0 13:28:20 Patient TargetsNo targets recorded. Patient Instructions Encounter Date Encounter Id Patient Instructions Last Modified By Organization Details Last Modified Time 12/19/2019 [id number] diabetes and nutrition education [email or web address] Not available 12/20/2019 15:02:42 Reason for Referral None Reported. Results Created Date Observation Date Name Description Value Unit Range Abnormal Flag Note LastModifiedBy Organization Detail LastModifiedTime 11/25/19 20 11/26/2019 lipid panel , serum cholesterol, total 199 mg/dL <200 normal Not Available [facility] [address] [place], [address], 11/26/2019 10:41:36 11/25/19 20 11/26/2019 lipid panel , serum HDL cholesterol 63 mg/dL > or = 50 normal Not Available [address], [address], 11/26/2019 10:41:36 11/25/19 20 11/26/2019 lipid panel , serum triglyceride s 133 mg/dL <150 normal Not Available [address], [address], 11/26/2019 10:41:36 11/25/19 20 11/26/2019 lipid panel [...] 2061- 2068 (http ://ed ucati on.Qu Gildardo Auramist. com/f aq/FA Q164) Not Available [address], [address], 11/26/2019 10:41:36 11/25/19 20 11/26/2019 lipid panel , serum chol/HDLC ratio 3.2 (calc ) <5.0 normal Not Available [address], [address], 11/26/2019 10:41:36 11/25/19 20 11/26/2019 lipid panel , serum non HDL cholesterol 136 mg/dL _(susy c) <130 high For patie nts with diabe komal plus 1 major ASCVD risk facto r, treat ing to a non-H DL-C goal of <100 mg/dL (LDL- C of <70 mg/dL ) is kayla ayalao n. Not Available [address], [address], 11/26/2019 10:41:36 11/25/19 20 11/26/2019 magne sium, serum or plasm a magnesium 1.6 mg/dL 1.5-2. 5 normal Not Available [address], [address], 11/26/2019 10:41:36 11/25/1911/26/2019 iron + total iron- yana ng capac ity (TIBC ), serum iron, total 56 mcg/d L 45-160 normal Not Available [address], [address], 11/26/2019 10:41:37 11/25/1911/26/2019 iron + total iron- yana ng capac ity (TIBC ), serum iron binding capacity 313 mcg/d L_(ca lc) 250-45 0 normal Not Available [address], [address], 11/26/2019 10:41:37 11/25/1911/26/2019 iron + total iron- yana ng capac ity (TIBC ), serum % saturation 18 %_(ca lc) 16-45 normal Not Available [address], [address], 11/26/2019 10:41:37 11/25/1911/26/2019 CMP, serum or plasm a glucose 137 mg/dL 65-139 normal Non-f astin g refer ence inter usama Not Available [address] [place], [address], 11/26/2019 10:41:37 11/25/19 20 11/26/2019 CMP, serum or plasm a urea nitrogen (BUN) 16 mg/dL 7-25 normal Not Available [address], [address], 11/26/2019 10:41:37 11/25/19 20 11/26/2019 CMP, serum or plasm a creatinine 0.60 mg/dL 0.60-0 .93 normal For patie nts >49 years of age, the refer ence limit for Creat inine is appro ximat yandel 13% highe r for peopl e ident ified as Afric an-Am ayah n. Not Available [address] [place], [address], 11/26/2019 10:41:37 11/25/1911/26/2019 CMP, serum or plasm a eGFR non-afr. lebanese 90 mL/mi n/1.7 3m2 > or = 60 normal Not Available [address] [address] [place], [address], 11/26/2019 10:41:37 11/25/1911/26/2019 CMP, serum or plasm a eGFR 104 mL/mi n/1.7 3m2 > or = 60 normal Not Available [address], [address], 11/26/2019 10:41:37 11/25/1911/26/2019 CMP, serum or plasm a BUN/creatini ne ratio NOT APPLIC ABLE (calc ) 6-22 Not Available [facility] [address] [address] [place], [address], 11/26/2019 10:41:37 11/25/1911/26/2019 CMP, serum or plasm a sodium 141 mmol/ L 135-14 6 normal Not Available [address] [address] [place], [address], 11/26/2019 10:41:37 11/25/1911/26/2019 CMP, serum or plasm a potassium 4.5 mmol/ L 3.5-5. 3 normal Not Available [address], [address], 11/26/2019 10:41:37 11/25/1911/26/2019 CMP, serum or plasm a chloride 108 mmol/ L 98-110 normal Not Available [address], [address], 11/26/2019 10:41:37 11/25/1911/26/2019 CMP, serum or plasm a carbon dioxide 21 mmol/ L 20-32 normal Not Available [address], [address], 11/26/2019 10:41:37 11/25/1911/26/2019 CMP, serum or plasm a calcium 9.8 mg/dL 8.6-10 .4 normal Not Available [address], [address], 11/26/2019 10:41:37 11/25/1911/26/2019 CMP, serum or plasm a protein, total 7.2 g/dL 6.1-8. 1 normal Not Available [address], [address], 11/26/2019 10:41:37 11/25/1911/26/2019 CMP, serum or plasm a albumin 4.3 g/dL 3.6-5. 1 normal Not Available [address], [address], 11/26/2019 10:41:37 11/25/1911/26/2019 CMP, serum or plasm a globulin 2.9 g/dL_ (calc ) 1.9-3. 7 normal Not Available [address], [address], 11/26/2019 10:41:37 11/25/1911/26/2019 CMP, serum or plasm a albumin/glob ulin ratio 1.5 (calc ) 1.0-2. 5 normal Not Available [address], [address], 11/26/2019 10:41:37 11/25/19 20 11/26/2019 CMP, serum or plasm a bilirubin, total 0.8 mg/dL 0.2-1. 2 normal Not Available [address], [address], 11/26/2019 10:41:37 11/25/19 20 11/26/2019 CMP, serum or plasm a alkaline phosphatase 137 U/L 37-153 normal Not Available [facility] [address], [address], 11/26/2019 10:41:37 11/25/19 20 11/26/2019 CMP, serum or plasm a AST 12 U/L 10-35 normal Not Available [address], [address], 11/26/2019 10:41:37 11/25/19 20 11/26/2019 CMP, serum or plasm a ALT 13 U/L 6-29 normal Not Available [address], [address], 11/26/2019 10:41:37 11/25/1911/26/2019 CBC w/ auto diff white blood cell count 6.7 thous and/u L 3.8-10 .8 normal Not Available [address], [address], 11/26/2019 10:41:38 11/25/1911/26/2019 CBC w/ auto diff red blood cell count 5.30 cari on/uL 3.80-5 .10 high Not Available [address], [address], 11/26/2019 10:41:38 11/25/19 20 11/26/2019 CBC w/ auto diff hemoglobin 14.5 g/dL 11.7-1 5.5 normal Not Available [address], [address], 11/26/2019 10:41:38 11/25/19 20 11/26/2019 CBC w/ auto diff hematocrit 43.4 % 35.0-4 5.0 normal Not Available [address], [address], 11/26/2019 10:41:38 11/25/19 20 11/26/2019 CBC w/ auto diff MCV 81.9 fL 80.0-1 00.0 normal Not Available [address], [address], 11/26/2019 10:41:38 11/25/19 20 11/26/2019 CBC w/ auto diff MCH 27.4 pg 27.0-3 3.0 normal Not Available [address], [address], 11/26/2019 10:41:38 11/25/1911/26/2019 CBC w/ auto diff MCHC 33.4 g/dL 32.0-3 6.0 normal Not Available [address], [address], 11/26/2019 10:41:38 11/25/19 20 11/26/2019 CBC w/ auto diff RDW 13.8 % 11.0-1 5.0 normal Not Available [address], [address], 11/26/2019 10:41:38 11/25/19 20 11/26/2019 CBC w/ auto diff platelet count 243 thous and/u L 140-40 0 normal Not Available [address], [address], 11/26/2019 10:41:38 11/25/19 20 11/26/2019 CBC w/ auto diff MPV 10.7 fL 7.5-12 .5 normal Not Available [address], [address], 11/26/2019 10:41:38 11/25/19 20 11/26/2019 CBC w/ auto diff absolute neutrophils 3337 cells /uL 1500-7 800 normal Not Available [address], [address], 11/26/2019 10:41:38 11/25/19 20 11/26/2019 CBC w/ auto diff absolute lymphocytes 2385 cells /uL 850-39 00 normal Not Available [address], [address], 11/26/2019 10:41:38 11/25/19 20 11/26/2019 CBC w/ auto diff absolute monocytes 610 cells /uL 200-95 0 normal Not Available [address], [address], 11/26/2019 10:41:38 11/25/19 20 11/26/2019 CBC w/ auto diff absolute eosinophils 248 cells /uL 15-500 normal Not Available [address], [address], 11/26/2019 10:41:38 11/25/19 20 11/26/2019 CBC w/ auto diff absolute basophils 121 cells /uL 0-200 normal Not Available [address], [address], 11/26/2019 10:41:38 11/25/1911/26/2019 CBC w/ auto diff neutrophils 49.8 % normal Not Available [address], [address], 11/26/2019 10:41:38 11/25/19 20 11/26/2019 CBC w/ auto diff lymphocytes 35.6 % normal Not Available [address], [address], 11/26/2019 10:41:38 11/25/1911/26/2019 CBC w/ auto diff monocytes 9.1 % normal Not Available [address], [address], 11/26/2019 10:41:38 11/25/19 20 11/26/2019 CBC w/ auto diff eosinophils 3.7 % normal Not Available [address], [address], 11/26/2019 10:41:38 11/25/1911/26/2019 CBC w/ auto diff basophils 1.8 % normal Not Available [address], [address], 11/26/2019 10:41:38 11/25/19 20 11/26/2019 nica tin, serum or plasm a ferritin 73 NG/mL 16-288 normal Not Available [address], [address], 11/26/2019 10:41:39 11/25/1911/26/2019 vitam in B12 + folat e, serum or blood vitamin B12 474 pg/mL 200-11 00 normal Not Available [address], [address], 11/26/2019 10:41:39 11/25/1911/26/2019 vitam in B12 + folat e, serum or blood folate, serum 8.8 NG/mL normal Refer ence Range Low: <3.4 Borde rline : 3.4-5 .4 Dominique l: >5.4 Not Available [address], [address], 11/26/2019 10:41:39 11/25/1911/26/2019 TSH, serum or plasm a TSH w/reflex to FT4 3.05 mIU/L 0.40-4 .50 normal Not Available [facility] [address] [address] [place], [address], 11/26/2019 10:41:40 11/25/1911/26/2019 vitam in D, 25-hy [...] /MS is recom michael d: order code 36574 (donavon ents >2yrs ). For more infor brett marin on this test, go to: http: //malena rodriguez stdia gnost ics.c om/fa q/FAQ 163 (This link is being provi ded for infor brett nal/e ducat ional purpo ses only. ) Not Available [facility] [address] [address] [address], [place], [address], 11/26/2019 10:41:40 11/25/1911/26/2019 HbA1c (hemo globi n [...] diabe komal for child josi. Not Available [facility] [address] [place], [address], 11/26/2019 10:41:41 11/25/19 20 11/26/2019 HbA1c (hemo globi n A1c), blood EAG (mg/dL) 183 (calc ) Not Available [facility] [address], [address], 11/26/2019 10:41:41 11/25/19 20 11/26/2019 HbA1c (hemo globi n A1c), blood EAG (mmol/L) 10.1 (calc ) Not Available [address], [address], 11/26/2019 10:41:41 12/08/19 20 12/09/2019 CMP, serum or plasm a glucose 159 mg/dL 65-99 high Fasti ng refer ence inter usama For someo ne witho ut known diabe komal, a gluco se value >125 mg/dL indic ates that they may have diabe komal and this shoul d be confi rmed with a follo w-up test. Not Available [email or web address] [address], [address], 12/09/2019 02:32:46 12/08/1912/09/2019 CMP, serum or plasm a urea nitrogen (BUN) 13 mg/dL 7-25 normal Not Available [email or web address] [address], [address], 12/09/2019 02:32:46 12/08/1912/09/2019 CMP, serum or plasm a creatinine 0.64 mg/dL 0.60-0 .93 normal For patie nts >49 years of age, the refer ence limit for Creat inine is appro ledat yandel 13% highe r for peopl e ident ified as Afric an-Am ayah n. Not Available [address], [address], 12/09/2019 02:32:46 12/08/19 20 12/09/2019 CMP, serum or plasm a eGFR non-afr. lebanese 88 mL/mi n/1.7 3m2 > or = 60 normal Not Available [address], [address], 12/09/2019 02:32:46 12/08/19 20 12/09/2019 CMP, serum or plasm a eGFR 102 mL/mi n/1.7 3m2 > or = 60 normal Not Available [address], [address], 12/09/2019 02:32:46 12/08/19 20 12/09/2019 CMP, serum or plasm a BUN/creatini ne ratio NOT APPLIC ABLE (calc ) 6-22 Not Available [address], [address], 12/09/2019 02:32:46 12/08/1912/09/2019 CMP, serum or plasm a sodium 137 mmol/ L 135-14 6 normal Not Available [address], [address], 12/09/2019 02:32:46 12/08/1912/09/2019 CMP, serum or plasm a potassium 4.5 mmol/ L 3.5-5. 3 normal Not Available [address], [address], 12/09/2019 02:32:46 12/08/1912/09/2019 CMP, serum or plasm a chloride 104 mmol/ L 98-110 normal Not Available [address], [address], 12/09/2019 02:32:46 12/08/19 20 12/09/2019 CMP, serum or plasm a carbon dioxide 22 mmol/ L 20-32 normal Not Available [address], [address], 12/09/2019 02:32:46 12/08/19 20 12/09/2019 CMP, serum or plasm a calcium 9.7 mg/dL 8.6-10 .4 normal Not Available [address], [address], 12/09/2019 02:32:46 12/08/1912/09/2019 CMP, serum or plasm a protein, total 7.1 g/dL 6.1-8. 1 normal Not Available [address], [address], 12/09/2019 02:32:46 12/08/19 20 12/09/2019 CMP, serum or plasm a albumin 4.0 g/dL 3.6-5. 1 normal Not Available [address], [address], 12/09/2019 02:32:46 12/08/19 20 12/09/2019 CMP, serum or plasm a globulin 3.1 g/dL_ (calc ) 1.9-3. 7 normal Not Available [address], [address], 12/09/2019 02:32:46 12/08/1912/09/2019 CMP, serum or plasm a albumin/glob ulin ratio 1.3 (calc ) 1.0-2. 5 normal Not Available [address], [address], 12/09/2019 02:32:46 12/08/19 20 12/09/2019 CMP, serum or plasm a bilirubin, total 0.8 mg/dL 0.2-1. 2 normal Not Available [address] [address] [place], [address], 12/09/2019 02:32:46 12/08/1912/09/2019 CMP, serum or plasm a alkaline phosphatase 125 U/L 37-153 normal Not Available [facility] [address] [address] [place], [address], 12/09/2019 02:32:46 12/08/1912/09/2019 CMP, serum or plasm a AST 16 U/L 10-35 normal Not Available [address] [address] [place], [address], 12/09/2019 02:32:46 12/08/1912/09/2019 CMP, serum or plasm a ALT 12 U/L 6-29 normal Not Available [address], [address], 12/09/2019 02:32:46 04/06/2004/10/2020 lipid panel , serum cholesterol, total 172 mg/dL <200 normal Not Available [address], [address], 04/10/2020 02:05:17 04/06/2004/10/2020 lipid panel , serum HDL cholesterol 60 mg/dL > or = 50 normal Not Available [address] [place], [address], 04/10/2020 02:05:17 04/06/2004/10/2020 lipid panel , serum triglyceride s 153 mg/dL <150 high Not Available [address] [place], [address], 04/10/2020 02:05:17 04/06/2004/10/2020 lipid panel , serum [...] 2061- 2068 (http ://ed ucati on.Qu estDi Kinet[employer]. com/f aq/FA Q164) Not Available [facility] [address] [address] [place], [address], 04/10/2020 02:05:04/06/2004/10/2020 lipid panel , serum chol/HDLC ratio 2.9 (calc ) <5.0 normal Not Available [facility] [address] [address] [facility] [place], [address], 04/10/2020 02:05:17 04/06/2004/10/2020 lipid panel , serum non HDL cholesterol 112 mg/dL _(susy c) <130 normal For patie nts with diabe komal plus 1 major ASCVD risk facto r, treat ing to a non-H DL-C goal of <100 mg/dL (LDL- C of <70 mg/dL ) is consi dered a thera peuti c optio n. Not Available [facility] [address] [address] [address], [place], [address], 04/10/2020 02:05:17 04/06/2004/10/2020 magne sium, serum or plasm a magnesium 1.7 mg/dL 1.5-2. 5 normal Not Available [facility] [address] [address] [place], [address], 04/10/2020 02:05:17 04/06/2004/10/2020 CMP, serum or plasm a glucose 139 mg/dL 65-99 high Fasti ng refer ence inter usama For someo ne witho ut known diabe komal, a gluco se value >125 mg/dL indic ates that they may have diabe komal and this shoul d be confi rmed with a follo w-up test. Not Available [address], [address], 04/10/2020 02:05:18 04/06/2004/10/2020 CMP, serum or plasm a urea nitrogen (BUN) 12 mg/dL 7-25 normal Not Available [email or web address] [address], [address], 04/10/2020 02:05:18 04/06/2004/10/2020 CMP, serum or plasm a creatinine 0.73 mg/dL 0.60-0 .93 normal For patie nts >49 years of age, the refer ence limit for Creat inine is appro ximat yandel 13% highe r for peopl e ident ified as Afric an-Am ayah n. Not Available [address], [address], 04/10/2020 02:05:18 04/06/2004/10/2020 CMP, serum or plasm a eGFR non-afr. lebanese 81 mL/mi n/1.7 3m2 > or = 60 normal Not Available [facility] [address] [address] [place], [address], 04/10/2020 02:05:18 04/06/2004/10/2020 CMP, serum or plasm a eGFR 93 mL/mi n/1.7 3m2 > or = 60 normal Not Available [facility] [address], [address], 04/10/2020 02:05:18 04/06/2004/10/2020 CMP, serum or plasm a BUN/creatini ne ratio NOT APPLIC ABLE (calc ) 6-22 Not Available [address], [address], 04/10/2020 02:05:18 04/06/2004/10/2020 CMP, serum or plasm a sodium 140 mmol/ L 135-14 6 normal Not Available [address], [address], 04/10/2020 02:05:18 04/06/2004/10/2020 CMP, serum or plasm a potassium 4.3 mmol/ L 3.5-5. 3 normal Not Available [address], [address], 04/10/2020 02:05:18 04/06/2004/10/2020 CMP, serum or plasm a chloride 105 mmol/ L 98-110 normal Not Available [address], [address], 04/10/2020 02:05:18 04/06/2004/10/2020 CMP, serum or plasm a carbon dioxide 25 mmol/ L 20-32 normal Not Available [address], [address], 04/10/2020 02:05:18 04/06/2004/10/2020 CMP, serum or plasm a calcium 10.0 mg/dL 8.6-10 .4 normal Not Available [address], [address], 04/10/2020 02:05:18 04/06/2004/10/2020 CMP, serum or plasm a protein, total 6.9 g/dL 6.1-8. 1 normal Not Available [address], [address], 04/10/2020 02:05:18 04/06/2004/10/2020 CMP, serum or plasm a albumin 4.1 g/dL 3.6-5. 1 normal Not Available [address], [address], 04/10/2020 02:05:18 04/06/2012 0404/10/2020 CMP, serum or plasm a globulin 2.8 g/dL_ (calc ) 1.9-3. 7 normal Not Available [address], [address], 04/10/2020 02:05:18 04/06/2004/10/2020 CMP, serum or plasm a albumin/glob ulin ratio 1.5 (calc ) 1.0-2. 5 normal Not Available [address], [address], 04/10/2020 02:05:18 04/06/2004/10/2020 CMP, serum or plasm a bilirubin, total 0.7 mg/dL 0.2-1. 2 normal Not Available [address], [address], 04/10/2020 02:05:18 04/06/2004/10/2020 CMP, serum or plasm a alkaline phosphatase 133 U/L 37-153 normal Not Available [facility] [address], [address], 04/10/2020 02:05:18 04/06/2004/10/2020 CMP, serum or plasm a AST 16 U/L 10-35 normal Not Available [address], [address], 04/10/2020 02:05:18 04/06/2004/10/2020 CMP, serum or plasm a ALT 15 U/L 6-29 normal Not Available [email or web address] [address], [address], 04/10/2020 02:05:18 04/06/2004/10/2020 CBC w/ auto diff white blood cell count 6.2 thous and/u L 3.8-10 .8 normal Not Available [address], [address], 04/10/2020 02:05:20 04/06/2004/10/2020 CBC w/ auto diff red blood cell count 5.74 cari on/uL 3.80-5 .10 high Not Available [address], [address], 04/10/2020 02:05:20 04/06/2004/10/2020 CBC w/ auto diff hemoglobin 15.1 g/dL 11.7-1 5.5 normal Not Available [address], [address], 04/10/2020 02:05:20 04/06/2004/10/2020 CBC w/ auto diff hematocrit 48.8 % 35.0-4 5.0 high Not Available [address], [address], 04/10/2020 02:05:20 04/06/2004/10/2020 CBC w/ auto diff MCV 85.0 fL 80.0-1 00.0 normal Not Available [address], [address], 04/10/2020 02:05:20 04/06/2004/10/2020 CBC w/ auto diff MCH 26.3 pg 27.0-3 3.0 low Not Available [address], [address], 04/10/2020 02:05:20 04/06/2004/10/2020 CBC w/ auto diff MCHC 30.9 g/dL 32.0-3 6.0 low Not Available [address], [address], 04/10/2020 02:05:20 04/06/2004/10/2020 CBC w/ auto diff RDW 14.0 % 11.0-1 5.0 normal Not Available [address], [address], 04/10/2020 02:05:20 04/06/20 20 04/10/2020 CBC w/ auto diff platelet count 208 thous and/u L 140-40 0 normal Not Available [address], [address], 04/10/2020 02:05:20 04/06/2004/10/2020 CBC w/ auto diff MPV 10.5 fL 7.5-12 .5 normal Not Available [address], [address], 04/10/2020 02:05:20 04/06/2004/10/2020 CBC w/ auto diff absolute neutrophils 3255 cells /uL 1500-7 800 normal Not Available [address], [address], 04/10/2020 02:05:20 04/06/2004/10/2020 CBC w/ auto diff absolute lymphocytes 2170 cells /uL 850-39 00 normal Not Available [address], [address], 04/10/2020 02:05:20 04/06/2004/10/2020 CBC w/ auto diff absolute monocytes 484 cells /uL 200-95 0 normal Not Available [address], [address], 04/10/2020 02:05:20 04/06/2004/10/2020 CBC w/ auto diff absolute eosinophils 211 cells /uL 15-500 normal Not Available [address], [address], 04/10/2020 02:05:20 04/06/2004/10/2020 CBC w/ auto diff absolute basophils 81 cells /uL 0-200 normal Not Available [address], [address], 04/10/2020 02:05:20 04/06/2004/10/2020 CBC w/ auto diff neutrophils 52.5 % normal Not Available [address], [address], 04/10/2020 02:05:20 04/06/2004/10/2020 CBC w/ auto diff lymphocytes 35.0 % normal Not Available [address], [address], 04/10/2020 02:05:20 04/06/2004/10/2020 CBC w/ auto diff monocytes 7.8 % normal Not Available [address], [address], 04/10/2020 02:05:20 04/06/2004/10/2020 CBC w/ auto diff eosinophils 3.4 % normal Not Available [address], [address], 04/10/2020 02:05:20 04/06/2004/10/2020 CBC w/ auto diff basophils 1.3 % normal Not Available [address], [address], 04/10/2020 02:05:20 04/06/2004/10/2020 T4, free, serum T4, free 1.6 NG/dL 0.8-1. 8 normal Not Available [address], [address], 04/10/2020 02:05:20 04/06/2004/10/2020 TSH, serum or plasm a TSH 2.96 mIU/L 0.40-4 .50 normal Not Available [address], [address], 04/10/2020 02:05:21 04/06/2004/10/2020 vitam in D, 25-hy [...] /MS is recom michael d: order code 00491 (donavon ents >2yrs ). See Note 1 Note 1 For addit ional infor cipriano echevarria refer to http: //malena Krishnamurthyia gntito ics.c om/fa q/FAQ 199 (This link is being provi ded for infor brett gonzalez/ lauro garcia purpo ses only. ) Not Available [facility] [address] [place], [address], 04/10/2020 02:05:21 04/06/20 20 04/10/2020 HbA1c (hemo [...] diabe komal for child josi. Not Available [facility] [address] [place], [address], 04/10/2020 02:05:21 07/06/2007/07/2020 lipid panel , serum cholesterol, total 180 mg/dL <200 normal Not Available [address], [address], 07/07/2020 14:51:56 07/06/2007/07/2020 lipid panel , serum HDL cholesterol 63 mg/dL > or = 50 normal Not Available [address], [address], 07/07/2020 14:51:56 07/06/2007/07/2020 lipid panel , serum triglyceride s 120 mg/dL <150 normal Not Available [address], [address], 07/07/2020 14:51:56 07/06/2007/07/2020 lipid panel , serum [...] 2061- 2068 (http ://ed ucati on.Qu stevenDi Kinet[employer]. com/f aq/FA Q164) Not Available [address], [address], 07/07/2020 14:51:56 07/06/2007/07/2020 lipid panel , serum chol/HDLC ratio 2.9 (calc ) <5.0 normal Not Available [address], [address], 07/07/2020 14:51:56 07/06/2007/07/2020 lipid panel , serum non HDL cholesterol 117 mg/dL _(susy c) <130 normal For patie nts with diabe komal plus 1 major ASCVD risk facto r, treat ing to a non-H DL-C goal of <100 mg/dL (LDL- C of <70 mg/dL ) is consi dered a thera peuti c optio n. Not Available [address] [address] [place], [address], 07/07/2020 14:51:56 07/06/2007/07/2020 magne sium, serum or plasm a magnesium 1.8 mg/dL 1.5-2. 5 normal Not Available [address] [address] [place], [address], 07/07/2020 14:51:57 07/06/2007/07/2020 CMP, serum or plasm a glucose 132 mg/dL 65-139 normal Non-f astin g refer ence inter usama Not Available [facility] [address] [address] [place], [address], 07/07/2020 14:51:57 07/06/2007/07/2020 CMP, serum or plasm a urea nitrogen (BUN) 15 mg/dL 7-25 normal Not Available [address] [address] [place], [address], 07/07/2020 14:51:57 07/06/2007/07/2020 CMP, serum or plasm a creatinine 0.70 mg/dL 0.60-0 .93 normal For patie nts >49 years of age, the refer ence limit for Creat inine is appro ximat yandel 13% highe r for peopl e ident ified as Afric an-Am ayah n. Not Available [facility] [address] [address] [place], [address], 07/07/2020 14:51:57 07/06/2007/07/2020 CMP, serum or plasm a eGFR non-afr. lebanese 85 mL/mi n/1.7 3m2 > or = 60 normal Not Available [address], [address], 07/07/2020 14:51:57 07/06/2007/07/2020 CMP, serum or plasm a eGFR 98 mL/mi n/1.7 3m2 > or = 60 normal Not Available [address] [place], [address], 07/07/2020 14:51:57 07/06/2007/07/2020 CMP, serum or plasm a BUN/creatini ne ratio NOT APPLIC ABLE (calc ) 6-22 Not Available [address], [address], 07/07/2020 14:51:57 07/06/2007/07/2020 CMP, serum or plasm a sodium 137 mmol/ L 135-14 6 normal Not Available [address], [address], 07/07/2020 14:51:57 07/06/2007/07/2020 CMP, serum or plasm a potassium 4.4 mmol/ L 3.5-5. 3 normal Not Available [address], [address], 07/07/2020 14:51:57 07/06/2007/07/2020 CMP, serum or plasm a chloride 105 mmol/ L 98-110 normal Not Available [address], [address], 07/07/2020 14:51:57 07/06/2007/07/2020 CMP, serum or plasm a carbon dioxide 23 mmol/ L 20-32 normal Not Available [address], [address], 07/07/2020 14:51:57 07/06/20 20 07/07/2020 CMP, serum or plasm a calcium 9.7 mg/dL 8.6-10 .4 normal Not Available [address], [address], 07/07/2020 14:51:57 07/06/20 20 07/07/2020 CMP, serum or plasm a protein, total 7.2 g/dL 6.1-8. 1 normal Not Available [address], [address], 07/07/2020 14:51:57 07/06/2007/07/2020 CMP, serum or plasm a albumin 4.2 g/dL 3.6-5. 1 normal Not Available [address], [address], 07/07/2020 14:51:57 07/06/20 20 07/07/2020 CMP, serum or plasm a globulin 3.0 g/dL_ (calc ) 1.9-3. 7 normal Not Available [address], [address], 07/07/2020 14:51:57 07/06/20 20 07/07/2020 CMP, serum or plasm a albumin/glob ulin ratio 1.4 (calc ) 1.0-2. 5 normal Not Available [address], [address], 07/07/2020 14:51:57 07/06/2007/07/2020 CMP, serum or plasm a bilirubin, total 0.8 mg/dL 0.2-1. 2 normal Not Available [address], [address], 07/07/2020 14:51:57 07/06/20 20 07/07/2020 CMP, serum or plasm a alkaline phosphatase 126 U/L 37-153 normal Not Available [facility] [address], [address], 07/07/2020 14:51:57 07/06/2007/07/2020 CMP, serum or plasm a AST 14 U/L 10-35 normal Not Available [address], [address], 07/07/2020 14:51:57 07/06/2007/07/2020 CMP, serum or plasm a ALT 13 U/L 6-29 normal Not Available [address], [address], 07/07/2020 14:51:57 07/06/2007/07/2020 CBC w/ auto diff white blood cell count 6.2 thous and/u L 3.8-10 .8 normal Not Available [address], [address], 07/07/2020 14:51:58 07/06/2007/07/2020 CBC w/ auto diff red blood cell count 5.74 cari on/uL 3.80-5 .10 high Not Available [address], [address], 07/07/2020 14:51:58 07/06/2007/07/2020 CBC w/ auto diff hemoglobin 15.2 g/dL 11.7-1 5.5 normal Not Available [address], [address], 07/07/2020 14:51:58 07/06/2007/07/2020 CBC w/ auto diff hematocrit 46.4 % 35.0-4 5.0 high Not Available [address], [address], 07/07/2020 14:51:58 07/06/2007/07/2020 CBC w/ auto diff MCV 80.8 fL 80.0-1 00.0 normal Not Available [address], [address], 07/07/2020 14:51:58 07/06/2007/07/2020 CBC w/ auto diff MCH 26.5 pg 27.0-3 3.0 low Not Available [address], [address], 07/07/2020 14:51:58 07/06/2007/07/2020 CBC w/ auto diff MCHC 32.8 g/dL 32.0-3 6.0 normal Not Available [address], [address], 07/07/2020 14:51:58 07/06/2007/07/2020 CBC w/ auto diff RDW 14.9 % 11.0-1 5.0 normal Not Available [address], [address], 07/07/2020 14:51:58 07/06/2007/07/2020 CBC w/ auto diff platelet count 211 thous and/u L 140-40 0 normal Not Available [address], [address], 07/07/2020 14:51:58 07/06/2007/07/2020 CBC w/ auto diff MPV 10.7 fL 7.5-12 .5 normal Not Available [address], [address], 07/07/2020 14:51:58 07/06/2007/07/2020 CBC w/ auto diff absolute neutrophils 3174 cells /uL 1500-7 800 normal Not Available [address], [address], 07/07/2020 14:51:58 07/06/2007/07/2020 CBC w/ auto diff absolute lymphocytes 2127 cells /uL 850-39 00 normal Not Available [address] [place], [address], 07/07/2020 14:51:58 07/06/2007/07/2020 CBC w/ auto diff absolute monocytes 570 cells /uL 200-95 0 normal Not Available [address] [place], [address], 07/07/2020 14:51:58 07/06/2007/07/2020 CBC w/ auto diff absolute eosinophils 229 cells /uL 15-500 normal Not Available [address] [address] [place], [address], 07/07/2020 14:51:58 07/06/2007/07/2020 CBC w/ auto diff absolute basophils 99 cells /uL 0-200 normal Not Available [address] [place], [address], 07/07/2020 14:51:58 07/06/2007/07/2020 CBC w/ auto diff neutrophils 51.2 % normal Not Available [address] [place], [address], 07/07/2020 14:51:58 07/06/2007/07/2020 CBC w/ auto diff lymphocytes 34.3 % normal Not Available [address] [place], [address], 07/07/2020 14:51:58 07/06/2007/07/2020 CBC w/ auto diff monocytes 9.2 % normal Not Available [facility] [address] [address] [place], [address], 07/07/2020 14:51:58 07/06/2007/07/2020 CBC w/ auto diff eosinophils 3.7 % normal Not Available [facility] [address] [address] [place], [address], 07/07/2020 14:51:58 07/06/2007/07/2020 CBC w/ auto diff basophils 1.6 % normal Not Available [facility] [address] [address] [place], [address], 07/07/2020 14:51:58 07/06/2007/07/2020 T4, free, serum T4, free 1.4 NG/dL 0.8-1. 8 normal Not Available [facility] [address], [address], 07/07/2020 14:51:58 07/06/2007/07/2020 TSH, serum or plasm a TSH 2.98 mIU/L 0.40-4 .50 normal Not Available [facility] [address], [address], 07/07/2020 14:51:59 07/06/2007/07/2020 HbA1c (hemo globi n [...] diabe komal for child josi. Not Available [facility] [address], [address], 07/07/2020 14:51:59 07/06/2007/07/2020 HbA1c (hemo globi n A1c), blood EAG (mg/dL) 186 (calc ) Not Available [facility] [address] [place], [address], 07/07/2020 14:51:59 07/06/20 20 07/07/2020 HbA1c (hemo globi n A1c), blood EAG (mmol/L) 10.3 (calc ) Not Available [facility] [address] [address], [place], [address], 07/07/2020 14:51:59 11/28/19 20 11/10/2019 CT, lumba r spine , w/wo contr ast No observ ation record ed. [email or web address] Not Available 2019 11:38:11 12/05/19 20 12/05/2019 CT, abdom en + pelvi s, w/ contr ast No observ ation record ed. [email or web address] [address] , [place], [address], 12/20/2019 14:25:40 06/16/20 20 06/14/2020 MAMMO , scree asdaf, digit al, bilat eral No observ ation record ed. [facility] [address] [address], [place], [address], 06/16/2020 16:44:14 Result Notes None recorded. Problems Name Problem SNOMED Code Status Onset Date Resolution Date Notes Provider Name and Address Organization Details Recorded Time Uncontrolled type 2 diabetes mellitus 587259130 Active 2019 YAO Langford-BC, PMHNP-BC [address] [place], [address], [facility] 0 15:07:16 Essential hypertension 39653427 Active 2019 AYO Langford-CANDACE, PMHNP-BC [address] [place], [address], [facility] 0 15:07:24 Hyperlipidemia 80804273 Active 2019 ISABEL LangfordP-BC, PMHNP-BC [address] [place], [address], [facility] 0 15:07:54 Major depressive disorder 074988886 Active 2019 YAO Langford-BC, PMHNP-BC [address] [place], [address], [facility] 0 16:25:36 Problem Notes None recorded. Procedures Surgical History Date Name Laterality Status Provider Name and Address Organization Details Recorded Time Tubal Ligation completed YAO Langford-CANDACE, PMHNP-BC [address] [place], [address], [facility] 11/25/2019 15:16:38 Spinal surgery completed YAO Langford-CANDACE, PMHNP-BC [address] [place], [address], [facility] 11/25/2019 15:16:55 R masectomy completed YAO Langford-CANDACE, PMHNP-BC [address] [place], [address], [facility] 11/25/2019 15:17:13 Imaging Results Imaging Date Name Status LastModified by Organiz ation Details LastModified Time 11/10/2019 CT, lumbar spine, w/wo contrast completed [email or web address] Information not available 11/28/2019 11:38:11 12/05/2019 CT, abdomen + pelvis, w/ contrast completed [address] [place], [address], 12/20/2019 14:25:40 06/14/2020 MAMMO, screening, digital, bilateral completed [email or web address] [facility], [address], 06/16/2020 16:44:14 Procedure Notes None recorded. Medical Equipment None Reported. Allergies Allergen ID Allergen Name Allergen Category Reaction Reaction Severity Criticality Documentation Date Start Date Code Code System Note Provider Name and Address Organization Details Recorded Time 2517 adhesive tape environme nt,medica tion itching moderate Not available 11/25/2019 [address] [address]K Aleyda Rubin [facility], [facility] 0 15:15:56 Medications Name Sig [...] [degF] 128 mm[Hg] 82 mm[Hg] Millicent Miltonylock [facility] 0 12:33:54 Date Recorded Body height Body mass index (BMI) Body weight Heart rate Respiratory rate Oxygen saturation Oxygen saturation in Arterial blood by Pulse oximetry Systolic blood pressure Diastolic blood pressure Provider Name and Address Organization Details Last Updated DateTime 0 160.02 cm 35.7 kg/m2 42686.5 g 75 /min 16 /min 94 % 94 % 132 mm[Hg] 90 mm[Hg] Aleyda Berg [facility] 0 15:12:38 Date Recorded Heart rate Respiratory rate Oxygen saturation Oxygen saturation in Arterial blood by Pulse oximetry Body temperature Systolic blood pressure Diastolic blood pressure Provider Name and Address Organization Details Last Updated DateTime 0 71 /min 16 /min 94 % 94 % 97.5 [degF] 122 mm[Hg] 70 mm[Hg] Moriah Rodriguez, DISH MACHINE OPERATOR-BC, PMHNP-BC [address] [place], [address] , [facility] [place] 0 14:41:57 Date Recorded Heart rate Oxygen saturation Oxygen saturation in Arterial blood by Pulse oximetry Body temperature Respiratory rate Systolic blood pressure Diastolic blood pressure Provider Name and Address Organization Details Last Updated DateTime 0 64 /min 95 % 95 % 97.5 [degF] 16 /min 118 mm[Hg] 72 mm[Hg] Moriah Rodriguez, DISH MACHINE OPERATOR-BC, PMHNP-BC [address] [place], [address], [facility] Benjamin Abrams [facility] 0 13:32:35 Social History Question Answer Notes LastModified by Organizat ion Details LastModified Time Tobacco Smoking Status Former Smoker Not Available [facility] 07/20/2020 03:13:57 Do You Have An Advance Directive? Yes [id number] Information not available 07/20/2020 What Is Your Level Of Alcohol Consumption? Occasional [id number] Information not available 07/20/2020 What Is Your Level Of Caffeine Consumption? Moderate [id number] Information not available 07/20/2020 How Much Tobacco Do You Chew? None [id number] Information not available 07/20/2020 Which Illicit Or Recreational Drugs Have You Used? None [id number] Information not available 07/20/2020 Do You Or Have You Ever Used E-cigarettes Or Vape? Never Used Electronic Cigarettes [id number] Information not available 07/20/2020 What Is Your Occupation? Retired [id number] Information not available 07/20/2020 Single Or Multi-level Home/work? Single Level Home [email or web address] Information not available 11/25/2019 Live Alone Or With Others? With Others [email or web address] Information not available 11/25/2019 Marital Status [email or web address] Informatio n not available 11/25/2019 What Was The Date Of Your Most Recent Tobacco Screening? 11/25/2019 [id number] Information not available 07/20/2020 Do You Or Have You Ever Used Smokeless Tobacco? Never Used Smokeless Tobacco [id number] Information not available 07/20/2020 How Much Tobacco Do You Smoke? 1 PPD [id number] Information not available 07/20/2020 How Many Years Have You Smoked Tobacco? 10 [id number] Information not available 07/20/2020 Sex: Unknown Functional Status Question Answer Note LastModified by Organization D etails LastModified Time Are you able to walk? YESWOREST [id number] Information not available 07/20/2020 What is your exercise level? None [id number] Information not available 07/20/2020 Mental Status None recorded. Family History Relationship Description Onset Age of this Age Resolved Age Notes LastModified by Organization Details LastModified Time Mother Essential hypertension Not available 11/2019 07:32:35 Mother Chronic kidney disease [email or web address] Not available 2019 07:32:44 Mother Diabetes mellitus [email or web address] Not available 2019 07:32:51 Mother Hyperlipidem ia [email or web address] Not available 2019 07:33:03 Mother Major depressive disorder Not available 2019 07:33:13 Maternal Grandfather Myocardial infarction [email or web address] Not available 11/24 07:33:36 Maternal Grandmother Diabetes mellitus [email or web address] Not available 2019 07:35:19 Father Heart disease [email or web address] Not available 2019 15:17:50 Brother Malignant neoplasm of prostate Not available 2019 15:18:07 Sister Family history of malignant neoplasm [email or web address] Not available 2019 15:18:23 Medical History Condition Response UTI Y Anxiety Disorder Y Cancer Y Cellulitis Y Allergies/Hayfever Y Osteoarthritis Y Hospitalizations Y Diabetes Y Hyperlipidemia Y Hypertension Y Gynecological HistoryNo gynecological history recorded. Obstetrics History GPAL:G 0 P 0 0 0 0 Immunizations Vaccine Type Date Status Note Provider Nam e and Address Organization Details Recorded Time Influenza, split virus, quadrivalent, PF 07/06/2020 completed MILLIE Langford, PMHNP-BC [address] [place], [address], [facility] 07/06/2020 12:58:54 Past Encounters Encounter ID Performer Location Encounter Start Date Encounter Closed Date Diagnosis/Indication Diagnosis SNOMED-CT Code Diagnosis ICD10 Code Diagnosis Note [id number] MILLIE Langford, PMHNP-BC Main Office [address] [place] [address] 11/25/2019 07:12:49 11/25/2019 16:28:03 Uncontrolled type 2 diabetes mellitus 507757586 E11.65 Checking levels to determine where is at with compliance with DM. Essential hypertension 36764366 I10 Elevated due to sending to hospital prior to arrival. Anemia 694893805 D64.9 Hyperlipidemia 30934592 E78.5 Fatigue 01027537 R53.83 Major depr essive disorder 934008436 F32.9 Patient is current on Zoloft which helps, but not fully resolving symptoms. Patient is having to take care of mom and who require quite a bit of care. Will monitor and look at making changes upon lab results. [id number] Moriah Rodriguez [facility], [facility] Main Office [address] [place] [address] 12/20/2019 14:24:27 12/20/2019 15:05:24 Uncontrolled type 2 diabetes mellitus 486378191 E11.65 A1C elevated. Changed medication . Essential hypertension 52141388 I10 Blood pressure much better this visit. Hyperlipidemia 30366617 E78.5 Patient is on Atorvastat in and has some slight elevations of LDL. Continue high dose statin. Major depr essive disorder 351506649 F32.9 Patient is doing a bit better, but due to COVID-19 has had some worsening. Denies SI/HI. Multiple renal cysts 253 914269 N28.1 Not bothering patient. Counseled on renal cysts and that if start having symptoms will refer to specialist . [id number] [facility] Main Office [address] [place] [address] 03/09/2020 07:52:43 03/09/2020 13:34:23 Uncontrolled type 2 diabetes mellitus 778372116 E11.65 Essential hypertension 84162200 I10 Hyperlipidemia 17554344 E78.5 Major depr essive disorder 224464550 F32.9 Patient is doing a bit better, but due to COVID-19 has had some worsening. Denies SI/HI. Candidiasis of vagina 72 626503 B37.3 Hypothyroidism 77530461 E03.9 [id number] Moriah Rodriguez [facility], [facility] Main Office [address] [place] [address] 07/06/2020 06:31:37 07/06/2020 13:01:00 Uncontrolled type 2 diabetes mellitus 815546680 E11.65 Essential hypertension 07691284 I10 Hyperlipidemia 14617501 E78.5 Hypothyroidism 38914213 E03.9 Administra tion of influenza vaccine 18200376 Z23 Health Concerns Section Related Observation LastModified by Organization Detai ls LastModified Time None Recorded Concern Status LastModified by Organization Details LastModified Time None Recorded Advance Directives Directive Y: Payers Encounter Date Sequence Insurance Name Policy Number Policy Hernandez Covered Member ID Hernandez Member ID Guarantor Name 11/25/2019 1 [facility] (MEDICARE REPLACEMENT/A DVANTAGE - HMO) [id number] Wendy Stokes [id number] Wendy Stokes 12/19/2019 1 [facility] (MEDICARE REPLACEMENT/A DVANTAGE - HMO) [id number] Wendy Stokes [id number] Wendy Stokes 03/09/2020 1 [facility] (MEDICARE REPLACEMENT/A DVANTAGE - HMO) [id number] Wendy Stokes [id number] Wendy Stokes 07/06/2020 1 [facility] (MEDICARE REPLACEMENT/A DVANTAGE - HMO) [id number] Wendy Stokes [id number] Wendy Stokes Notes Date Note Type Note Provider Name and Address Organization Details Recorded Time 11/25/2019 text/html 73 y/o female he re to establish care. Patient was previously seeing Dr. Arredondo in [facility] and has been having more issues getting over into [facility] to be seen with the difficulties with [...] the pain she is experiencing. Moriah Rodriguez, DISH MACHINE OPERATOR-BC, PMHNP-BC [address] [place], [address], [facility] 11/25/2019 16:27:46 12/19/2019 text/html 73 y/o female he re for follow up visit. Patient had CT scan done by pain management which showed a L renal mass. Results provided this office. Between visits further evaluation of suspected L renal mass done which showed renal cysts. Patient's A1C significantly elevated. Blood pressure much better this visit. Moriah RodriguezMILLIE, [facility] [address] [place], [address], [facility] 12/20/2019 15:04:22 03/09/2020 text/html 74 y/o female he re for follow up visit. Patient has been doing well on Synjardy. Patient has been checking blood sugars roughly every two weeks and reports her sugars have stayed below 180. Having increased vaginal itching and used OTC creams which have not helped. Moriah RodriguezMILLIE, [facility] [address] [place], [address], [facility] 03/09/2020 13:34:07 07/06/2020 text/html [...] or dry skin. Moriah Whitehead MILLIE Rodriguez, [facility]- [address] [place], [address], [facility] 07/06/2020 13:00:32 OBGyn Episode No OBEpisode recorded.
--- OUTSIDE RECORDS SUMMARY | 2025-01-20 22:24 | XMS_ITS | Encounter Summary ---
Author Organization [facility] Address [address] [place] [address] Care Team Providers Care Emergency Services Professional Name Role Phone Smith Islas MD Primary Care Provider [phone] Encounter Details Date Type Department Care Team (Latest Contact Info) Description 11/25/2008 Outpatient Historical [facility] DRAW SITE Smith Islas MD [address] [address] DM w/o Complication Type II (CMS/HCC) Social History Tobacco Use Types Packs/Day Years Used Date Smoking Tobacco: Former Cigarettes Q uit: 06/26/1988 Alcohol Use Standard Drinks/Week Comments No 0 (1 standard drink = 0.6 oz pur e alcohol) Comments No Sex and Gender Information Value Date Recorded Sex Assigned at Not on file Legal Sex Female 3:30 AM TIN POURER Gender Identity Not on file Sexual Orientation Not on file documented as of this encounter Plan of Treatment Not on file documented as of this encounter Visit Diagnoses Diagnosis Type II or unspecified type diabetes mellitus without mention of complication, not stated as uncontrolled documented in this encounter Care Teams Emergency Services Professional Relationship Specialty Start Date End Date Smith Islas MD [address] [place] [address] [place] [address] PCP - General 10/22/03 07/11/15 documented as of this encounter
--- OUTSIDE RECORDS SUMMARY | 2025-01-20 22:24 | XMS_ITS | Patient Health Record ---
Author Organization [facility] elizabeth Address [address] [facility] [place] [address] Care Team Providers Care Storage Garage Manager Name Role Phone Miranda Melendez Unavailable [phone] Reason For Referral No Information Medications Medication [...] the abdomen or thigh (rotate sites) Subcutaneous [id number]-25 Active Sertraline HCl 100 MG Oral Active Carvedilol 25 MG Oral Act barbara Problems Problem Type SNOMED Code ICD Code Onset Dates Problem Status W/U Status Risk Notes Problem Joint pain (66115916) Pain in unspecified joint (M25.50) Active confirmed Problem Joint disorder (649401595) Joint disorder, unspecified (M25.9) Active confirmed pain Problem Backache (709929527) Dorsalgia, unspecified (M54.9) Active confirmed Plan Of Treatment No Information Insurance Providers Payer Name Payer Address Payer Phone Subscriber Number Group Number Insured Name Patient Relationship to Insured Coverage Start Date Coverage End Date DO NOT USE - use ins id # [id number] Wendy Stokes Self - patient is the insured [facility] [address] [place] [address] [id number] Stokes, Wendy Self - patient is the insured Medical (General) History Surgical History Surgery Date(Month/Year) mastectomy; 2018 Back surgery; 2018
--- OUTSIDE RECORDS SUMMARY | 2025-01-20 22:24 | XMS_ITS | Encounter Summary ---
Author Organization [facility] Address [address] [place] [address] Care Team Providers Care Workers Compensation Claims Analyst Name Role Phone Smith Islas MD Primary Care Provider [phone] Encounter Details Date Type Department Care Team (Late st Contact Info) Description 10/14/2003 Outpatient Historical [facility] Internal Medicine [address] [address] Smith Islas MD [address] [place] [address] Social History Tobacco Use Types Packs/Day Years Used Date Smoking Tobacco: Never Assessed Comments Unknown Sex and Gender Information Value Date Recorded Sex Assigned at Not on file Legal Sex Female 3:30 AM BAND SPLITTER Gender Identity Not on file Sexual Orientation Not on file documented as of this encounter Last Filed Vital Signs Vital Sign Reading Time Taken Comments Blood Pressure 140/90 10/14/2003 10:30 AM BAND SPLITTER Pulse - - Temperature - - Respiratory Rate - - Oxygen Saturation - - Inhaled Oxygen Concentration - - Weight 96.2 kg (212 lb) 10/14/2003 10:30 AM BAND SPLITTER Height 165.1 cm (5' 5 ) 10/14/2003 10:30 AM BAND SPLITTER Body Mass Index 35.28 10/14/2003 10:30 AM BAND SPLITTER documented in this encounter Plan of Treatment Not on file documented as of this encounter Visit Diagnoses Not on filedocumented in this encounter Care Teams Workers Compensation Claims Analyst Relationship Specialty Start Date End Date Smith Islas MD [address] [place] [phone] PCP - General 10/22/03 07/11/15 documented as of this encounter
--- OUTSIDE RECORDS SUMMARY | 2025-01-20 22:24 | XMS_ITS | Encounter Summary ---
Author Organization [facility] Address [address] [place] [address] Care Team Providers Care Electronic Sales And Service Technician Name Role Phone Smith Islas MD Primary Care Provider [phone] Encounter Details Date Type Department Care Team (Late st Contact Info) Description 04/09/2006 Outpatient Historical [facility] Internal Medicine [address] [address] Smith Islas MD [address] [place] [address] Social History Tobacco Use Types Packs/Day Years Used Date Smoking Tobacco: Never Assessed Comments Unknown Sex and Gender Information Value Date Recorded Sex Assigned at Not on file Legal Sex Female 3:30 AM TACTICAL DEBRIEFER OFFICER Gender Identity Not on file Sexual [...] Body Mass Index 37.28 10/14/2003 10:30 AM TACTICAL DEBRIEFER OFFICER documented in this encounter Plan of Treatment Not on file documented as of this encounter Visit Diagnoses Not on filedocumented in this encounter Care Teams Electronic Sales And Service Technician Relationship Specialty Start Date End Date Smith Islas MD [address] [place] [phone] PCP - General 10/22/03 07/11/15 documented as of this encounter
--- OUTSIDE RECORDS SUMMARY | 2025-01-20 22:25 | XMS_ITS | Encounter Summary ---
Author Organization [facility] Address [address] [place] [address] Care Team Providers Care Operational Risk Manager Name Role Phone Smith Islas MD Primary Care Provider [phone] Encounter Details Date Type Department Care Team (Late st Contact Info) Description 10/04/2007 Orders Only [facility] Internal Medicine [address] [address] Smith Islas MD [address] [place] [phone] Social History Tobacco Use Types Packs/Day Years Used Date Smoking Tobacco: Never Assessed Comments Unknown Sex and Gender Information Value Date Recorded Sex Assigned at Not on file Legal Sex Female 3:30 AM RESAW OPERATOR Gender Identity Not on file Sexual [...] lab LAB ORDERS: 4 mo Order number: [id number] Test Ordered: COMPREHENSIVE METABOLIC PANEL & GFR 1112 Order number: [id number] Test Ordered: HEMOGLOBIN A1C 1814 Order number: [id number] Test Ordered: LIPID PANEL 1078 Order number: [id number] Test Ordered: TSH 1720 311-DEPRESSION better , [...] on filedocumented in this encounter Care Teams Operational Risk Manager Relationship Specialty Start Date End Date Smith Islas MD [address] [place] [phone] PCP - General 10/22/03 07/11/15 documented as of this encounter
--- OUTSIDE RECORDS SUMMARY | 2025-01-20 22:25 | XMS_ITS | Encounter Summary ---
Author Organization [facility] Address [address] [place] [address] Care Team Providers Care Coal Carrier Name Role Phone Smith Islas MD Primary Care Provider [phone] Encounter Details Date Type Department Care Team (Late st Contact Info) Description 10/16/2007 Outpatient Historical [facility] Internal Medicine [address] [address] Smith Islas MD [address] [place] [address] Social History Tobacco Use Types Packs/Day Years Used Date Smoking Tobacco: Never Assessed Comments Unknown Sex and Gender Information Value Date Recorded Sex Assigned at Not on file Legal Sex Female 3:30 AM ELEVATOR ERECTOR HELPER Gender Identity Not on file Sexual Orientation Not on file documented as of this encounter Last Filed Vital Signs Vital Sign Reading Time Taken Comments Blood Pressure 120/70 10/16/2007 2:00 PM ELEVATOR ERECTOR HELPER Pulse - - Temperature 36.2 C (97.1 F) 10/16/2007 2:00 PM ELEVATOR ERECTOR HELPER Respiratory Rate - - Oxygen Saturation - - Inhaled Oxygen Concentration - - Weight 94.3 kg (208 lb) 10/16/2007 2:00 PM ELEVATOR ERECTOR HELPER Height - - Body Mass Index 34.61 10/14/2003 10:30 AM ELEVATOR ERECTOR HELPER documented in this encounter Plan of Treatment Not on file documented as of this encounter Visit Diagnoses Not on filedocumented in this encounter Care Teams Coal Carrier Relationship Specialty Start Date End Date Smith Islas MD [address] [place] [phone] PCP - General 10/22/03 07/11/15 documented as of this encounter
--- OUTSIDE RECORDS SUMMARY | 2025-01-20 22:25 | XMS_ITS | Encounter Summary ---
Author Organization [facility] Address 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
--- OUTSIDE RECORDS SUMMARY | 2025-01-20 22:25 | XMS_ITS | Clinical Summary ---
Author Organization [facility] Address [address] [place] [address] Care Team Providers Care Demand Inspector Name Role Phone Bradley Rubin MD Primary Care Provider [phone] Allergies No known active allergies Medications oxyCODONE-acetam [...] Health Maintenance Due Date Last Done Comments Zoster Vaccines (1 of 2) 1994 Annual Medicare Wellness Visit 2009 Dexa Scan (General) 2009 RSV Immunization or 60+ Years (1 - 1-dose 75+ series) 12/15/2019 COVID-19 Vaccine (3 - season) 2024 12/15/2020, 11/17/2020 DTaP, Tdap and Td Vaccines (2 - Td or Tdap) 06/16/2024 06/16/2014, 01/15/2004 Pneumococcal Vaccine: 50+ Years Completed 08/16/2020, 09/20/2015, 10/22/2013, Additional history exists Meningococcal B Vaccine Aged Out No l onger eligible based on patient's age to complete this topic Meningococcal Vaccine Aged Out No meeta barby eligible based on patient's age to complete this topic RSV Immunizations Under 20 Months Aged Out No longer eligible based on patient's age to complete this topic Insurance [facility] Care Teams Demand Inspector Relationship Specialty Start Date End [place] [address] PCP - General FAMILY PRACTICE 05/16/21
--- OUTSIDE RECORDS SUMMARY | 2025-01-20 22:25 | XMS_ITS | CONTINUITY OF CARE DOCUMENT ---
Author Name héctor anaya Address Unknown Organization [facility] Address [address] [place] [address] Phone [phone] Care Team Providers Care Broke Handler Name Role Phone Trini SAENZ, Otto Unavailable [phone] Otto Feliz MD Unavailable [phone] INSURANCE PROVIDERS Payer name Policy type / Coverage type [place] red libertarian ID [id number] PAY
--- OUTSIDE RECORDS SUMMARY | 2025-01-20 22:25 | XMS_ITS | Encounter Summary ---
Author Organization [facility] Address 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 [address] D.O.B: 1945 SSN: [id number] Parent/Guardian if applicable: Patient Insurance: [employer] Policy#: [id number] Group #: Best To Call : [phone] Best Time to Call : ANYTIME. May We Leave Message At That Number : YES, LEAVE MESSAGE. Referring to: GENERAL SURGERY Dr. Emma Brooke ph: [phone] fax: [phone]. Dr. Noelle Caceres ph: [phone] fax [phone]. Reason for referral: pain in left breast ORDERING PHYSICIAN : BECKA ESCOBEDO MD PRIORITY OF REFERRAL: AT PATIENT'S CONVENIENCE. OFFICE ROUNDHOUSE FIRER/FIREMAN & PHONE: Zara Linares C FOR SCHEDULING USE ONLY FIRST ATTEMPT Date:NOV 14, 2007 Bora Steen 10:55 a Spoke with Patient. pt will need to bring xrays and films with her to the appt. APPOINTMENT DATE : 11/18/2007 ( 12:[address] Brooke) LT 11/14/07 10:57 am Referral number: [facility] NN [id number] 11/14/2007 10:58 a Referral/Pre-auth communicated: [...] REFERRAL: GENERAL SURGERY Dr. Emma Brooke ph: [phone] fax: [phone]. Dr. Noelle Caceres ph: [phone] fax [phone]. Patient Education: The patient was allowed to ask questions to stated satisfaction. RETURN VISIT : Instructed to call if not improving. Electronically Signed by: Becka Escobedo MD on Tuesday, November 13, 2007 documented in this encounter Plan of Treatment Not on file documented as of this encounter Visit Diagnoses Not on filedocumented in this encounter Care Teams Monologist Relationship Specialty Start Date End Date Becka Escobedo MD [address] [place] [phone] PCP - General 10/22/03 07/11/15 documented as of this encounter
--- OUTSIDE RECORDS SUMMARY | 2025-01-20 22:25 | XMS_ITS | Encounter Summary ---
Author Organization [facility] Address [address] [place] [address] Care Team Providers Care Freight Broker Name Role Phone Becka Escobedo MD Primary Care Provider [phone] Encounter Details Date Type Department Care Team (Late st Contact Info) Description 10/16/2007 Orders Only [facility] Internal Medicine [address] [address] Becka Escobedo MD [address] [place] [phone] Social History Tobacco Use Types Packs/Day Years Used Date Smoking Tobacco: Never Assessed Comments Unknown Sex and Gender Information Value Date Recorded Sex Assigned at Not on file 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 [address] D.O.B: 1945 SSN: [id number] Parent/Guardian if applicable: Patient Insurance: [employer] ID#: [id number] Group#: ORDER(S) #: [id number] [facility] [[email or web address]] BEST TO CALL CELL. [phone] MAY WE LEAVE MESSAGE AT THAT NUMBER: YES, LEAVE MESSAGE. PLEASE SCHEDULE THE APPOINTMENT AT THE FOLLOWING LOCATION: [facility] [phone]. TEST PRIORITY: 2 - 7 DAYS. SPECIAL SCHEDULING INSTRUCTIONS: need prep ORDERING PHYSICIAN: BECKA ESCOBEDO MD OFFICE INSURANCE EXECUTIVE & PHONE: Rossi Herrera E ORDER PRINTED BY: OCT 17, 2007 Deidre Biggs 12:51 p FOR SCHEDULING USE ONLY: FIRST ATTEMPT Date:OCT 18, 2007 Deidre Biggs 08:30 a Spoke with Patient. OCT 18, 2007 Deidre Biggs 08:[address] [facility] [phone]. APPOINTMENT DATE : 10/21/2007 ( 2pm) The appointment was scheduled by Deidre Biggs at [phone] FINAL ACTION Follow up completed. Spoke with [...] proceed with us LAB ORDERS: Order number: [id number] Test Ordered: US BREAST LEFT StA 461.9-SINUSITIS [...] on filedocumented in this encounter Care Teams Freight Broker Relationship Specialty Start Date End Date Becka Escobedo MD [address] [place] [phone] PCP - General 10/22/03 07/11/15 documented as of this encounter
--- OUTSIDE RECORDS SUMMARY | 2025-01-20 22:25 | XMS_ITS | Encounter Summary ---
Author Organization [facility] Address [address] [place] [address] Care Team Providers Care Bias Machine Operator Name Role Phone Smith Islas MD Primary Care Provider [phone] Encounter Details Date Type Department Care Team (Latest Contact Info) Description 01/30/2008 Outpatient Historical [facility] Internal Medicine [address] [address] Smith Islas MD [address] [place] [phone] DM w/o Complication Type II (CMS/HCC) Social History Tobacco Use Types Packs/Day Years Used Date Smoking Tobacco: Never Assessed Comments Unknown Sex and Gender Information Value Date Recorded Sex Assigned at Not on file 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 Gender Identity Not on file Sexual Orientation [...] CDT) HDL 57 40 - 59 mg/dL [facility] CHOLESTEROL 190 100 - 199 mg/dL [facility] CHOL/HDL RATIO 3.3 2.0 - 5.0 [facility] TRIGLYCERIDE 120 10 - 149 mg/dL [facility] LDL CALCULATED 109(H) <=99 mg/dL [facility] LIPID PANEL COMMENT See Below [facility] Comment: The adult ATP and pediatric NCEP classifications for lipids are available on the [facility] Intranet at: [email or web address] Select: Lab Policies and Procedures,Current Select: Lipid Panel Interpretation Blood specimen (specimen) 01/30/2008 9:19 AM CDT 01/30/2008 3:20 PM CDT Smith Islas MD CHEMISTRY ORDERABLES Edited Performing Organization Address [facility] Co de Phone Number [facility] [address] [place] [address] * (ABNORMAL) HEMOGLOBIN A1C (01/30/2008 9:19 AM CDT) HEMOGLOBIN A1C 6.9(H) 4.1 - 6.1 % of Hgb [facility] GLUCOSE, MEAN BLOOD 168 mg/dL [facility] Blood specimen (specimen) 01/30/2008 9:19 AM CDT 01/30/2008 3:20 PM CDT Smith Islas MD CHEMISTRY ORDERABLES Final Re sult [facility] CLIA# [id number] [address] [place] [address] * TSH (01/30/2008 9:19 AM CDT) TSH 1.13 0.27 - 4.20 uU/mL [facility] Blood specimen (specimen) 01/30/2008 9:19 AM CDT 01/30/2008 3:20 PM CDT us Smith Islas MD CHEMISTRY ORDERABLES Final Re sult [facility] [address] [place] [address] * (ABNORMAL) COMPREHENSIVE METABOLIC PANEL (01/30/2008 9:19 AM CDT) [facility] TOTAL PROTEIN 7.2 6.3 - 8.6 g/dL [facility] POTASSIUM 4.0 3.5 - 4.9 mmol/L [facility] GLUCOSE 113(H) 65 - 99 mg/dL [facility] AST 17 12 - 32 U/L [facility] BUN 13 6 - 20 mg/dL [facility] CALCIUM 9.3 8.4 - 10.2 mg/dL [facility] CHLORIDE 105 96 - 108 mmol/L [facility] ALBUMIN 4.2 3.4 - 4.8 g/dL [facility] CREATININE 0.47(L) 0.51 - 0.95 mg/dL [facility] SODIUM 139 135 - 145 mmol/L [facility] ALT 18 0 - 31 U/L [facility] ALKALINE PHOSPHATASE 114(H) 35 - 104 U/L [facility] BILIRUBIN TOTAL 0.6 0.2 - 1.0 mg/dL [facility] CO2 22 22 - 30 mmol/L [facility] GFR, >60 >=60 mL/min/1. 7 sq meter [facility] GFR >60 >=60 mL/min/1. 7 sq meter [facility] Comment: Estimated GFR rate interpretative information for both Americans and non- Americans is available on the [facility] Intranet at: [email or web address] Select: Lab Policies and Procedures Select: Reference Ranges - GFR Blood specimen (specimen) 01/30/2008 9:19 AM CDT 01/30/2008 3:20 PM CDT us Smith Islas MD CHEMISTRY ORDERABLES Edited [facility] [address] [place] [address] documented in this encounter Visit Diagnoses Diagnosis Type II or unspecified type diabetes mellitus without mention of complication, not stated as uncontrolled documented in this encounter Care Teams Bias Machine Operator Relationship Specialty Start Date End Date Smith Islas MD [address] [place] [phone] PCP - General 10/22/03 07/11/15 documented as of this encounter
--- OUTSIDE RECORDS SUMMARY | 2025-01-20 22:25 | XMS_ITS | Encounter Summary ---
Author Organization [facility] Address [address] [place] [address] Care Team Providers Care Tester Rocket Engine Name Role Phone Smith Islas MD Primary Care Provider [phone] Encounter Details Date Type Department Care Team (Latest Contact Info) Description 02/25/2008 Outpatient Historical [facility] Smith Islas MD [address] [place] [phone] Unspecified Backache; Degeneration of Lumbar or Lumbosacral Intervertebral Disc; Arthrodesis Status Social History Tobacco Use Types Packs/Day Years Used Date Smoking Tobacco: Former Alcohol Use Standard Drinks/Week Comments No 0 (1 standard drink = 0.6 oz pur e alcohol) Comments No Sex and Gender Information Value Date Recorded Sex Assigned at Not on file 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
--- OUTSIDE RECORDS SUMMARY | 2025-01-20 22:25 | XMS_ITS | Encounter Summary ---
Author Organization [facility] Address 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
--- OUTSIDE RECORDS SUMMARY | 2025-01-20 22:25 | XMS_ITS | Encounter Summary ---
Author Organization [facility] Address 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 [place], [place] [address] Admit Date: 12/30/2007 TIGRE STOKESDEANNE Diaz Sex: F Admit Prov: EMMA JOSEPH Date: 1945 Primary Care Prov: BECKA ESCOBEDO CMRN: [id number] Room: JOSEFINA N: [id number] IMAGING SERVICES Ordering Prov: EMMA JOSEPH Accession Number: [id number] Interpretation Left diagnostic digital mammograms with computer-assisted [...] Procedure Note Car Albright MD - 12/30/[address] [address] Admit Date: 12/30/2007 MORRIS STOKES Sex: F Admit Prov: EMMA JOSEPH Date: 1945 Primary Care Prov: BECKA ESCOBEDO CMRN: [id number] Room: Kris SSN: [id number] IMAGING SERVICES Ordering Prov: EMMA JOSEPH Interpretation [...] AM CDT Narrative 12/30/2007 11:35 AM CDT [address] [address] Admit Date: 12/30/2007 MORRIS STOKES Sex: F Admit Prov: ARCELIA JOSEPHSA Date: 1945 Primary Care Prov: BECKA ESCOBEDO CMRN: [id number] Room: JOSEFINA SSN: [id number] IMAGING SERVICES Ordering Prov: EMMA JOSEPH Accession Number: [id number] Interpretation Left diagnostic digital mammograms with computer-assisted [...] Procedure Note Car Albright MD - 12/30/2007 [facility] [address], [place] [address] Admit Date: 12/30/2007 MORRIS STOKES Sex: F Admit Prov: EMMA JOSEPH Date: 1945 Primary Care Prov: BECKA ESCOBEDO Viral CMRN: [id number] Room: [facility] SSN: [id number] IMAGING SERVICES Ordering Prov: EMMA JOSEPH Interpretation [...] breast documented in this encounter Care Teams Back Tufter Relationship Specialty Start Date End Date Becka Escobedo MD [address] [place] [phone] PCP - General 10/22/03 07/11/15 documented as of this encounter
--- OUTSIDE RECORDS SUMMARY | 2025-01-20 22:25 | XMS_ITS | Continuity of Care Document ---
Author Organization [facility] Address [address] [facility] [address] [place] [address] Phone Care Team Providers Care Coal Cutting Machine Operator Name Role Phone Ronald BALDWIN, Huyen Unavailable [...] affected area 0.00 - Active Mucinex Fast-Max Ebff-Xar-Aznf Throat 5 mg-10 mg-325 mg-200 mg capsule [...] Diagnoses Date Provider Providers Copied on Encounter [facility] [place] [facility], [address], [place], [place], [address], tel:[phone] SEC Colton Rodriguez Complete Exam (chief complaint) Type 2 diabetes mellitus without complicationsV itreous degeneration, left eyePresence of intraocular lens 4 Ronald OD Huyen. [facility] [email or web address], [address], [place], [place], [address], [place]. tel:[phone] Manior Iqbal MD.Rand burgos Provider: Jose Angel Ponce, [address], [place], [address] . tel:[phone] [facility]Ark[facility] HospitalX[facility], [address], [place], [place], [address], [place] tel:[phone] SEC [place] Diabetic eye exam (chief complaint) Type 2 diabetes mellitus without complicationsP resence of intraocular lens 3 Maritza Walter. [facility] [email or web address], [address], [place], [place], [address], [place]. tel:[phone] Mainor Iqbal MD.Referri ng Provider: Jose Angel Ponce, [address], [place], [address] . tel:[phone] [facility] New[facility], [address], [place], [place], [address], [place] tel:[phone] SEC Briseida Godfrey Complete Exam (chief complaint) Type 2 diabetes mellitus without complicationsP resence of intraocular lensDrusen (degenerative) of macula, bilateral Nov- 2 Maritza Walter. [facility] [email or web address], [address], [place], [place], [address], [place]. tel:[phone] Mainor Iqbal MD.Referri ng Provider: Jose Angel Ponce, [facility] [email or web address], [place], [address] . tel:[phone] Office/outpa tient Visit, Est [facility], [address], [place], [place], [address], [place] tel:[phone] SEC Briseida N [place] Complete Exam (chief complaint) Type 2 diabetes mellitus without complicationsP resence of intraocular lens Mar-1 5-202 1 [place] Jose Angel. [facility] [email or web address], [address], [place], [place], [address], [place]. tel:[phone] Specialist : Mainor Iqbal MD, [address] [facility] [address] [place], [address]. tel:[phone] erring Provider: Jose Angel Ponce, [facility] [email or web address], [place], [address] . tel:[phone] [facility]Ar[facility] HospitalX[facility], [facility] [address], [place], [place], [address], [place] tel:[phone] SEC Briseida N [place] Complete Exam (chief complaint) Type 2 diabetes mellitus without complicationsP resence of intraocular lensEpiphora due to insufficient drainage, bilateral Sep-1 4-202 0 Maritza Jose Angel. [facility] [email or web address], [address], [place], [place], [address], [place]. tel:[phone] Mainor Iqbal MD.Referri ng Provider: Jenifer Funk MD, 4 [facility] [address], [place], [address]. tel:[phone] [facility], [facility] [address], [place], [place], [address], [place] tel:[phone] SEC Briseida N [place] diabetic eye exam (chief complaint) Type 2 diabetes mellitus without complicationsP resence of intraocular lens Sep-0 9-201 9 [place] Jose Angel. [email or web address], [address], [place], [place], [address], [place]. tel:[phone] Mainor Iqbal MD.Referri ng Provider: Jenifer Funk MD, 4 [facility] [address], [place], [address]. tel:[phone] [facility], [address] [place] [address] [address], [place], [place], [address], [place] tel:[phone] SEC [place] No Information 9 [place] Jose Angel. [address] [place] [address] [facility], [address], [place], [place], [address], [place]. tel:[phone] [facility], [address] [place] [address] [address], [place], [place], [address], [place] tel:[phone] SEC Briseida N [place] Complete Exam (chief complaint) Type 2 diabetes mellitus without complicationsP resence of intraocular lens Maritza Jose Angel. [address] [place] [address], [address], [place], [place], [address], [place]. tel:[phone] Specialist : Mainor Iqabl MD, 1 [facility] [address] [place], [address]. tel:[phone] erring Provider: Jenifer Funk MD, 4 [facility] [address], [place], [address]. tel:[phone] [facility], [address] [place] [address] [address], [place], [place], [address], [place] tel:[phone] SEC [place] No Information 8 Maritza Jose Angel. [address] [place] [address], [address], [place], [place], [address], [place]. tel:[phone] Specialist : Mainor Iqbal MD, 1 [facility] [address] [address] [place], [address]. tel:[phone] Office/outpa tient Visit, Est [facility], [address], [place], [place], [address], [place] tel:[phone] SEC Briseida N [place] diabetic eye exam (chief complaint) Type 2 diabetes mellitus without complicationsL rosi term (current) use of oral hypoglycemic drugsPresence of intraocular lensDrusen (degenerative) of macula, bilateral 7 [place] Jose Angel. [address], [address], [place], [place], [address], [place]. tel:[phone] Referring Provider: Jenifer Funk MD, [address] [facility] [address], [place], [address]. tel:[phone] [facility], [address], [place], [place], [address], [place] tel:[phone] SEC Briseida N [place] No Information 7 [place] Jose Angel. [email or web address], [address], [place], [place], [address], [place]. tel:[phone] [employer], [address], [place], [place], [address], [place] tel:[phone] SEC Briseida N [place] Diabetic eye exam (chief complaint) No Information 6 [place] Jose Angel. [address] [email or web address], [address], [place], [place], [address], [place]. tel:[phone] Referring Provider: Jenifer Funk MD, [address] [facility] [address], [place], [address]. tel:[phone] [employer], [address], [place], [place], [address], [place] tel:[phone] SEC Briseida N [place] No Information 6 Maritza Jose Angel. [email or web address], [address], [place], [place], [address], [place]. tel:[phone] Office/outpa tient Visit, Est [facility], [address], [place], [place], [address], [place] tel:[phone] SEC [place] diabetic exam (chief complaint) No Information 5 Maritza Jose Angel. [address] [facility], [address], [place], [place], [address], [place]. tel:[phone] Referring Provider: Jenifer Funk MD, 4 [facility] [address], [place], [address]. tel:[phone] [facility], [address], [place], [place], [address], [place] tel:[phone] SEC Briseida N [place] Complete Eye Exam (chief complaint) No Information 5 [place] Jose Angel. [address] Quovo [facility], [address], [place], [place], [address], [place]. tel:[phone] Referring Provider: Jenifer Funk MD, 4 [facility] [address], [place], [address]. tel:[phone] [facility], [address], [place], [place], [address], [place] tel:[phone] SEC Briseida N [place] No Information 4 Sepideh Huerta. [address] [facility], [address], [place], [place], [address], [place]. tel:[phone] [facility], [address], [place], [place], [address], [place] [phone] SEC [place] No Information 4 [place] Jose Angel. [email or web address], [address], [place], [place], [address], [place]. tel:[phone] Referring Provider: Smith Islas MD M, [address] [place] [address] [address], [place], [address]. tel:[phone] Office/outpa tient Visit, Est [facility], [address], [place], [place], [address], [place] [phone] SEC [place] No Information Nov- 7 4 Maritza Walter. [address], [address], [place], [place], [address], [place]. tel:[phone] Referring Provider: Jose Angel Ponce, [address], [place], [address] . tel:[phone] [facility], [address], [place], [place], [address], [place] [phone] SEC [place] No Information 6 3 Maritza Walter. [address], [address], [place], [place], [address], [place]. tel:[phone] Referring Provider: Jose Angel Ponce, [address], [place], [address] . tel:[phone] [facility], [address], [place], [place], [address], [place] tel:[phone] SEC Briseida N [place] No Information 0 201 3 Sepideh Huerta. [address] [facility], [address], [place], [place], [address], [place]. tel:[phone] Referring Provider: Jose Angel Ponce, [address], [place], [address] . tel:[phone] [facility], [address], [place], [place], [address], [place] tel:[phone] [facility] [place] No Information Sep-0 3-201 3 Maritza Walter. [address], [address], [place], [place], [address], [place]. tel:[phone] Referring Provider: Jose Angel Maritza A, [address], [place], [address] . tel:[phone] [facility], [address], [place], [place], [address], tel:[phone] SEC [place] No Information 0 3 Maritza Jose Angel. [facility] [address], [address], [place], [place], [address], [place]. tel:[phone] Referring Provider: Jose Angel [place] A, [facility] [address], [place], [address] . tel:[phone] [facility], [address], [place], [place], [address], [place] tel:[phone] SEC [place] No Information 2 Maritza Jose Angel. [facility] [email or web address], [address], [place], [place], [address], [place]. tel:[phone] [facility], [address], [place], [place], [address], [place] tel:[phone] SEC [place] No Information 2 Maritza Jose Angel. [facility] [email or web address], [address], [place], [place], [address], [place]. tel:[phone] [facility], [address], [place], [place], [address], [place] tel:[phone] SEC [place] [facility] No Information 0 2 Maritza Jose Angel. [facility] [address], [address], [place], [place], [address], [place]. tel:[phone] [facility], [address], [place], [place], [address], [place] tel:[phone] SEC [place] No Information 0 7-201 1 Maritza Walter. [email or web address], [address], [place], [place], [address], . tel:[phone] [facility], [address] [address], [place], [place], [address], tel:[phone] SEC Briseida N [place] No Information 2 2200 8 Maritza Walter. [email or web address], [address], [place], [place], [address], [place]. tel:[phone] Referring Provider: Jose Angel Ponce, [facility] [email or web address], [place], [address] . tel:[phone] [employer] [facility], [address], [place], [place], [address], tel:[phone] SEC Briseida N [place] No Information 0 6200 7 Maritza Walter. [email or web address], [address], [place], [place], [address], [place]. tel:[phone] [facility], [address] [address], [place], [place], [address], tel:[phone] SEC Briseida N [place] No Information 5200 7 Maritza Jose Angel. [email or web address], [address], [place], [place], [address], [place]. tel:[phone] Family History Family Member Type Diagnosis Age At Onset Mother and Grandmoth Problem (finding) Diabetes mellit Payers Payer name Insurance type Covered libertarian ID Davekimberley duggan(s) Aet[employer] Mdcr Gold Adv Prime CI [id number] Social History Type Description Quantity Date Captured [...] eye. Pt is NIDDM type II, no ONCOLOGY NAVIGATOR, does not check BS, A1C is 7.3. [...] Impression/Plan Impression/Plan Impression/Plan Impression/Plan Impression/Plan Impression/Plan Impression/Plan Type 2 diabetes vira itus without complications - Letter sent to PCP/Specialist Related to Type 2 diabetes mellitus without complications Impression/Plan - Di abetes type II: no background retinopathy, no signs of neovascularization noted. Discussed ocular and systemic benefits of blood sugar control. Letter generated and sent to Dr. Arredondo. Return to the office in 1 yr or sooner if vision worsens. Follow up - 1 yr complete exam Follow up - 1 yr complete exam [...] Capsulotomy. Related to After cataract limiting vision General plan -After cataract limiting vision -Diabetes Mellitus Type 2, Uncomplicated - Letter dictated to Dr. Islas Discussed dx with pt, YAG PC understood for treatment pt understands all R-a-b and will schedulequestionaire needed on return Educational materials provided:Yag Capsulotomy. Related to See impression: general plan - sched YAG PC OD Related to See impression: general plan - [...] taper gtts Related to FOLLOW-UP SURGERY NOS FOLLOW-UP SURGERY NO S OD 1 day Post-op PCL Excellent post-op course OD, IOP stable - Post-op instructins given. Instructed to begin Poly trim and Prednisolone qid and Nevanac tid in operated eye today.return in 2 weeks. Related to FOLLOW-UP SURGERY NOS - Return in 2 weeks with for post op exam. Related to FOLLOW-UP SURGERY NOS - sched [...] exam Related t o FOLLOW-UP SURGERY NOS Cataract, Nuclear Sc lerosis, OD - established, stable - vision affected - will continue to monitor - Cataracts accounts for pt's complaints. No treatment currently recommended, patient will monitor vision changes and contact us with any decrease in vision. Related to Cataract, Nuclear Sclerosis Opacified Capsule, O S - established, worsening - vision affected - may improve with surgery - Discussed dx with pt in detail. Pt elects YAG OS today.29@4.7Spoke to pt about spots and sparkles in vision for next few days Related to Opacified Capsule - 3-4 weeks PO YAG OS Related to Opacified Capsule Diabetes Type II, - no NPDR Rela jules to Diabetes Type II - sched YAG PC OS, and cat eval OD Related to Opacified Capsule Opacified Capsule, O S - established, worsening [...]
--- OUTSIDE RECORDS SUMMARY | 2025-01-20 22:25 | XMS_ITS ---
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 She wants, we have two hearing specialist in our group if it is [...] 11/07/2017 Assessment & Plan (09/27/2020 2:05 PM CONDUCTOR AND ENGINEER): Not well controlled, patient weight is stable [...] therapy Assessment & Plan (10/25/2020 2:09 PM CONDUCTOR AND ENGINEER): Patient is better tolerating Januvia, will continue current dose and check a1c today Assessment & Plan (09/27/2020 2:03 PM CONDUCTOR AND ENGINEER): Does not want to check a1c today -unknown control, patient had high carbohydrate meals during holiday season -cannot tolerate metformin 2/2 diarrhea, would like to try a different medication -will prescribe Januvia, and recheck blood sugars in 1 month to evaluate response to new therapy Assessment & Plan (08/18/2020 12:44 PM CONDUCTOR AND ENGINEER): Stable, well controlled, will continue emphaglifozin-metformin combo pill and check A1c today Assessment & Plan (05/10/2018 8:58 AM CDT): Continue current treatment plan. Foot care discussed. 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 -continue to monitor aspatient does say she feels exhausted all of the time. Hyperlipidemia 10/26/2014 Overview (12/29/2016): Hyperlipidemia Assessment & Plan (08/18/2020 12:43 PM CONDUCTOR AND ENGINEER): Stable, well controlled, continue atorvastatin 80 mg Essential hypertension 10/26/2014 Overview (12/29/2016): Essential hypertension Assessment & Plan (10/25/2020 2:14 PM CONDUCTOR AND ENGINEER): Blood pressure is well controlled, no signs [...] measurement Assessment & Plan (10/25/2020 2:14 PM CONDUCTOR AND ENGINEER): Will check TSH today, patient reprots she feels tired all of the time, but does not have any other symptoms of hypo or hyper-thyroidism. Assessment & Plan (08/18/2020 12:44 PM CONDUCTOR AND ENGINEER): Stable, no signs or symptoms of hypo [...] depression Assessment & Plan (10/25/2020 2:12 PM CONDUCTOR AND ENGINEER): Improving, patient has started sertraline again, feels better, mood is improving. Assessment & Plan (09/27/2020 2:04 PM CONDUCTOR AND ENGINEER): Discussed with patient risk of GI bleeding combination of NSAIDs and sertraline, that likely occurs with all SSRIs Patient prefers emma continue with duloexetine -patient to work on some lifestyle changes for weight loss, which can also help with mood such as get out and exercise more Assessment & Plan (08/18/2020 12:48 PM CONDUCTOR AND ENGINEER): Patient is stress related to caring for and elderly mother Unable to travel, and limited social interactions due to COVID-19 He constipation, will continue Cymbalta 60 mg Continue to follow with patient to evaluate response to therapy Osteoarthritis 10/12/2003 Assessment & Plan (10/25/2020 2:12 PM CONDUCTOR AND ENGINEER): Not well controlled, continues to have pain [...]
--- OUTSIDE RECORDS SUMMARY | 2025-01-20 22:25 | XMS_ITS | Encounter Summary ---
Author Organization [facility] Address [address] [place] [address] Care Team Providers Care Service Developer Name Role Phone Smith Islas MD Primary Care Provider [phone] Encounter Details Date Type Department Care Team (Late st Contact Info) Description 11/13/2007 Outpatient [facility] Internal Medicine [address] [address] Smith Islas MD [address] [place] [phone] Social History Tobacco Use Types Packs/Day Years Used Date Smoking Tobacco: Never Assessed Comments Unknown Sex and Gender Information Value Date Recorded Sex Assigned at Not on file Legal Sex Female 3:30 AM TRASH HAULER Gender Identity Not on file Sexual Orientation Not on file documented as of this encounter Plan of Treatment Not on file documented as of this encounter Visit Diagnoses Not on filedocumented in this encounter Care Teams Service Developer Relationship Specialty Start Date End Date Smith Islas MD [address] [place] [address] [address] [place] [address] PCP - General 10/22/03 07/11/15 documented as of this encounter
--- OUTSIDE RECORDS SUMMARY | 2025-01-20 22:25 | XMS_ITS | Clinical Summary ---
Author Organization [facility] Address [address] [place] [address] Care Team Providers Care Public Transit Bus Driver Name Role Phone Unavailable Primary Care Provider Unavailabl e Source Comments [facility],non-owned Affiliates and Associated Physician Practices is amultiple site organization consisting of ambulatory clinics and hospital sitesin [place], [place], [place] and [place]. This disclosure is being madepursuant to the Care Everywhere program and may not contain all information available regarding this patient. Last updated 18.[facility] Social History Tobacco Use Types Packs/Day Years [...] VACCINE ( - 2023-2 5 season) 2024 DEPRESSION SCREENING 09/24/2024 MEDICARE AWV CALENDAR YEAR 2024 INFLUENZA VACCINE (Season Ended) 2025 HEPATITIS B VACCINE Aged Out No longe [...] patient's age to complete this topic Insurance AETNA MEDICARE ADV
--- OUTSIDE RECORDS SUMMARY | 2025-01-20 22:25 | XMS_ITS | Encounter Summary ---
Author Organization [facility] Address [address] [place] [address] Care Team Providers Care Test Deck Supervisor Name Role Phone Becka Escobedo MD Primary Care Provider [phone] Encounter Details Date Type Department Care Team (Latest Contact Info) Description 03/11/2008 Outpatient Historical [facility] Rebel Swann MD [address] [place] [address] [place] [address] Lumbago; Degeneration of Lumbar or Lumbosacral Intervertebral Disc; Arthrodesis Status Social History Tobacco Use Types Packs/Day Years Used Date Smoking Tobacco: Former Alcohol Use Standard Drinks/Week Comments No 0 (1 standard drink = 0.6 oz pur e alcohol) Comments No Sex and Gender Information Value Date Recorded Sex Assigned at Not on file Legal Sex Female 3:30 AM SHIFT SUPERVISOR RN Gender Identity Not on file Sexual [...] AM CDT Narrative 03/11/2008 3:22 PM CDT [facility] [address] [place], [place] [address] Admit Date: 03/11/2008 [facility] Sex: F Admit Prov: REBEL SWANN Date: 1945 Primary Care Prov: BECKA ESCOBEDO CMRN: [id number] Room: [facility]: [address] [place] [address] IMAGING SERVICES Ordering Prov: N/A Accession Number: [id number] Interpretation LUMBAR SPINE 2 VIEWS, 03/11/2008 Clinical [...] Procedure Note Emely Kirby MD - 03/11/2008 [facility] [address] [place], [place] [address] Admit Date: 03/11/2008 [facility] Sex: F Admit Prov: REBEL SWANN Date: 1945 Primary Care Prov: BECKA ESCOBEDO CMRN: [id number] Room: [facility]: [address] [place] [address] IMAGING SERVICES Ordering Prov: N/A Interpretation LUMBAR [...] status documented in this encounter Care Teams Test Deck Supervisor Relationship Specialty Start Date End Date Becka Escobedo MD [address] [place] [address] PCP - General 10/22/03 07/11/15 documented as of this encounter
--- OUTSIDE RECORDS SUMMARY | 2025-01-20 22:25 | XMS_ITS | Encounter Summary ---
Author Organization [facility] Address [address] [place] [address] Phone Care Team Providers Care Regional Medical Director Name Role Phone Radhika Arredondo MD Primary Care Provider [phone] Torri Johnson PT Unavailable Unavail able Dustin Tim PT Unavailable Unavailab Jong Brunson CONSERVATION SCIENTIST Unavailable Unavaila Moriah Zapien NP Primary Care Provider [phone] Bradley Rubin MD Primary Care Provider [phone] Miscellaneous, Not In File Unavailable Unava ilTano Cates AIR EXPORT OPERATIONS AGENT Unavailable UnavailMaryam Sargent RN Unavailable [phone] Brijesh Cardenas MD Primary Care Provider + [phone] Encounter Details Date Type Department Care Team (Late st Contact Info) Description 12/06/2017 Orders Only [facility] ProviderJohnny MD [facility] [place] [address] Social History Tobacco Use Types Packs/Day Years Used Date Smoking Tobacco: Former Cigarettes 1 15 Smokeless Tobacco: Never Alcohol Use Standard Drinks/Week Comments No 0 (1 standard drink = 0.6 oz pur e alcohol) Comments Unknown Sex and Gender Information Value Date Recorded Sex Assigned at Not on file Legal Sex Female 6:18 PM LEACH TANK TENDER Gender Identity Not on file Sexual [...] COVID: Suspected 10/26/2023 10/26/2023 10/26/2023 7:11 PM LEACH TANK TENDER documented as of this encounter Care Teams Regional Medical Director Relationship Specialty Start Date End Date Radhika Arredondo MD [address] [facility] [address], [place] [address] PCP - General Internal Medicine 10/01/17 11/26/19 Moriah Rodriguez NP PCP - General 11/27/19 08/15/20 Bradley Rubin MD [address] [facility] [place] [address] PCP - General Family Medicine 08/16/20 07/11/22 Brijesh Cardenas MD [address] [place] [address] [address] [place] [address] PCP - General Family Medicine 07/12/22 Torri Johnson, PT Physical Therapist Physical Therapy 04/18/18 Dustin Tim, PT Physical Therapist Physical Therapy 04/26/18 Jong Reeves, CONSERVATION SCIENTIST Physical Therapist Physical Therapy 05/08/18 Miscellaneous, Not In File 03/17/21 Tano Purcell LCSW Promotion Specialist 03/22/21 01/17/22 Maryam Cline, RN [address] [place] [address] [address] [place] [address] Stockroom Coordinator 07/04/21 07/27/21 documented as of this encounter
--- NOTE | 2025-01-20 22:28 | ECG_ITS ---
Test Date: 2025-01-20 23:31:50 Measurements Intervals [place] Rate: 74 P: 44 TX: 217 QRS: -28 QRSD: 133 T: 80 QT: 371 QTc: 414 Interpretive Statements SINUS RHYTHM WITH FIRST DEGREE AV BLOCK INTRAVENTRICULAR CONDUCTION DELAY DELAYED PRECORDIAL R/S TRANSITION LEFT VENTRICULAR HYPERTROPHY AND ST-T CHANGE BORDERLINE ST-T WAVE ABNORMALITY- ANTEROLATERAL LEADS BASELINE ARTIFACT- I, II, III, AVR, AVL, AVF, V1-V6 BORDERLINE ECG No previous ECG available for comparison Electronically Signed On 01-21-2025 06:06:38 CDT by Khoa Campbell D.O.
[2025-01-20 22:29] LABS: Glucose Point of Care 204 mg/dl (65-105)
--- NOTE | 2025-01-20 22:38 | ED_ITS ---
HPI - Neuro Symptoms/Deficit General Chief Complaint: Suspected CVA Stated Complaint: Vertigo-blurred vision tonight Time Seen by Provider: 01/20/25 22:32 History of Present Illness HPI Narrative: 79-year-old female with history of hypertension, hyperlipidemia, diabetes, benign paroxysmal peripheral vertigo which is currently being evaluated with your nose and throat on outpatient basis. Patient states that she has been having chronic vertiginous symptoms and dizziness for several months and now having some associated visual deficits. Patient states that she was feeling lightheaded and dizzy this afternoon and evening and felt like her vision was becoming blurry in both eyes slightly worse on the right compared to the left. The visual disturbances quickly stopped but she states she is having headache. Denies any worsening vertiginous symptoms. She has an NIH stroke scale of 0 during my initial evaluation. No visual deficits or peripheral field deficits on my ocular examination. Stroke scale done at 10:30 p.m., last known well 7:00 p.m. aside from a headache and persistent vertiginous symptoms she denies any nauseousness, vomiting, persistent visual changes, chest pain, shortness a breath, abdominal pain, weakness, paresthesias. Related Data Home Medications ?Medication ?Instructions ?Recorded ?Confirmed ?Last Taken ?Type btsghjeb-tdy-pnkd-FA-Ca carb-vit K 1 tablet PO DAILY 09/12/19 11/25/24 06/02/21 History 18 mg iron-400 mcg-500 mg tablet (One-A-Day Womens Formula) ixekizumab 80 mg/mL subcutaneous mg subcut 11/25/24 11/25/24 Unknown History auto-injector (Taltz Autoinjector (3 Pack)) Allergies Allergy/AdvReac Type Severity Reaction Status Date / Time adhesive tape Allergy Mild Itching Verified 01/20/25 22:22 sitagliptin (From Januvia) Allergy Mild Itching Verified 01/20/25 22:22 metformin AdvReac Mild Diarrhea Verified 01/20/25 22:22 dapagliflozin (From Farxiga) AdvReac Unknown Verified 01/20/25 22:22 Review of Systems 2 Review of Systems: As reviewed above in HPI [facility] Past Medical History Medical History Sinusitis Vaginal tan BMI over 35 BMI 36.0-36.9,adult Anxiety and depression Recurrent urinary tract infection COVID Depression Nasal congestion Breast cancer Iron deficiency Diabetes type 2, uncontrolled RBC microcytosis Degenerative lumbar disc Cardiomegaly Cough Diabetes type 2, controlled Generalized anxiety disorder Chronic back pain Psoriasis Deep postoperative wound infection Chronic, continuous use of opioids Hypothyroidism Diabetes Hyperlipidemia Hypertension Surgical History Surgical History H/O total mastectomy of right breast History of incision and drainage (~06/21/21) Rt Humerus S/P ORIF (open reduction internal fixation) fracture (~06/03/21) Plate to right humerus status post right proximal humerus neck fracture History of right mastectomy History of back surgery 3 back surgery Family History Family History Mother Lung cancer Diabetes mellitus Hypertension Sibling Bone cancer Father Natural with unknown cause Sibling Cerebrovascular accident Social History Social History Social History: Patient lives with her who has had multiple strokes. She takes care of her . She has 3 children. 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 The patient stated that she used to smoke 30 years ago. Her son Xander Melo is her durable power bankruptcy attorney for healthcare. The patient is a full code. The patient denies any alcohol marijuana or illicit drugs. Smoking packs per day: 1 Smoking cigarettes per day: 20.0 Years smoked: 10 Smoking pack-years: 10.00 Smoking status: Former smoker Tobacco type: cigarettes Second hand tobacco smoke exposure: Yes Alcohol intake: current Drinks per week: 1 Substance use: current Substance use type: marijuana Other substance usage details: CBD GUMMIES EVERY DAY Last use: 25 years ago Do You Feel Safe in your Home?: Yes Lack of Transportation: No Lack of Food: Never True Current Housing: I Have Housing Concerned About Future Housing: No Difficulty Paying Gas/Electric Bills: No Difficulty Paying for Meds: No Currently Unemployed: No Education: High School Diploma/GED Difficulty w/ Childcare or Family Care: No Living arrangements: with family Occupation/Education: retired Additional occupation/education comments: [employer] Gender identity (if verbalized by the patient): Female Spiritual care concerns: No Exam 2 Narrative: GENERAL: [Well-appearing, well-nourished, and in no acute distress.] HEAD: [Normocephalic, atraumatic.] EYES: [PERRLA and EOMI.] ENT: Nares clear, no rhinorrhea or epistaxis. Mucous membranes moist. NECK: Supple. CHEST: [Clear to auscultation. No respiratory distress.] HEART: [Regular rate and rhythm]. No murmur heard. [Normal peripheral pulses.] ABDOMEN: [Soft, nondistended], [nontender], [No rigidity or guarding] EXTREMITIES: Normal range of motion. [No edema.] SKIN: Warm, dry, no rash. NEURO: [No focal deficits]. Alert and oriented [x3.]. No peripheral field deficits, extraocular movements are intact, no facial asymmetries. No drift in the arms or legs, no ataxia in the arms or legs. NIH stroke scale 0 PSYCH: [Normal mood and affect.] Course Vital Signs Vital signs: Vital Signs Pulse Rate 77 01/20/25 23:20 Respiratory Rate 12 01/20/25 23:20 Blood Pressure 163/82 H 01/20/25 23:20 Pulse Oximetry 97 01/20/25 23:20 Oxygen Delivery Room Air 01/20/25 23:20 Pulse Rate 81 01/21/25 02:15 Respiratory Rate 15 01/21/25 02:15 Blood Pressure 170/75 H 01/21/25 02:15 Pulse Oximetry 97 01/21/25 02:15 Oxygen Delivery Room Air 01/20/25 23:20 MDM - Neuro Symptoms/Deficit MDM Narrative Medical decision making narrative: 79-year-old female with history of hypertension, hyperlipidemia, diabetes and persistent vertigo for the last several months currently being evaluated for BPPV by ENT on outpatient basis. She is scheduled for vestibular physical therapy with ENT outpatient and referred for MRI for further evaluation. Today she presents as she was having some blurry vision in both eyes that quickly stopped. After which she started developing headache. She states that the vertigo she has been experiencing has not been changed and presently has no visual deficits. Describes tunnel-like vision in both eyes but slightly worse than the right eye compared to the left eye that quickly stopped. She was feeling lightheaded and dizzy at that time. Aside from headache she has no other symptoms at this time and the vision has returned to normal. She has an NIH Stroke Scale of 0. And last known well of 7:00 a.m. and given her historical features and vertiginous complaints for last several months this could have been a potential TIA versus stroke versus vertebrobasilar insufficiency versus large inclusion verses dehydration versus electrolyte imbalance. She is otherwise very well-appearing on my assessment and was sent to the CT scanner for CT of the head and CT angiography of the head neck for further delineation. Laboratory studies were drawn, EKG and chest x-ray ordered. Point of care glucose obtained and slightly hyperglycemic but not severe. Patient placed on pulse oximetry and gambling monitor. Patient is not on any antiplatelet or anticoagulation medications but is taking a statin. I was called by Radiology Dr. Kingston and informed the noncontrast CT was negative for any acute hemorrhage or acute event. Patient is past 3 hours from initial symptom onset and currently is asymptomatic with an NIH stroke scale was 0. No present indications for TNK. Awaiting CT angiography and remaining workup. Patient frequently re-evaluated and still asymptomatic. She endorses a headache and some mild nausea but no neurological deficits. Provided Toradol and Compazine for symptom control. No leukocytosis or anemia on labs. Normal platelet count. Normal coagulation panel. Electrolytes unremarkable. Normal creatinine, mildly elevated glucose. LFTs are normal, negative troponin. Chest x-ray shows no acute process. EKG shows sinus rhythm, first-degree AV block. CT angiogram pending. Discussed with the patient that given patient's symptomatology she might benefit from MRI imaging if no acute findings on CT point towards any specific etiology. CT angiography has some concerning results include poor feeling and multiple defects in the left sigmoid sinus, jugular bulb and proximal IJ with possible nonocclusive thrombi at these levels with recommendations for MR venogram. There is also a metallic foreign body in the distal left IJ representing a fractured guidewire. Patient tells me that she has a history of a botched central line attempt that required multiple guidewire times and ended up going to the operating room with fluoroscopy and the abandon the left IJ and tried other side. This was during COVID in 2020. Was able to find the note from 06/29/2021 with the surgical note indicating multiple attempts at left IJ cannulation for central venous catheter with multiple guidewire times unsuccessful. Given patient's vascular insult with metallic foreign body this precludes her remaining neurological workup for stroke given that she cannot get MRI imaging. I discussed the case with the [facility] vascular surgery and Neurology were spoken to. Given patient is currently asymptomatic there is no acute emergency however we cannot proceed with her stroke workup in totality and she will require transfer to their center for vascular surgery and neurological evaluation. Vascular surgery recommended ER to ER transfer. I was connected with and spoke to the ER physician Dr. Herrera who accepted the patient is a direct ER transfer. Ambulance services were contacted and patient was transferred to the facility without further incident. Patient remained asymptomatic while here in the emergency department, family members were comfortable with the plan and patient was made aware of the transfer at this time. Medical Records Attestation: I reviewed the patient's medical records. Lab Data Attestation: I reviewed the patient's lab results. 01/20/25 22:57 01/20/25 22:57 Labs: Lab Results 01/20/25 01/20/25 01/20/25 Range/Units 22:27 22:54 22:57 WBC 6.2 (4.5-10.0) K/mm3 RBC 5.36 (4.2-5.4) M/mm3 Hgb 15.0 (12.0-15.0) g/dL Hct 47.8 H (37.0-47.0) % MCV 89.2 (80-100) fl MCH 28.0 (26-34) pg MCHC 31.4 L (32-36) g/dl RDW 13.7 (11.5-14.5) % Plt Count 175 (150-375) k/mm3 MPV 10.3 (7.4-10.4) fl Immature Gran % (Auto) 0.5 (0-0.5) % Neut % (Auto) 45.5 (45.5-73.1) % Lymph % (Auto) 40.9 (18.3-44.2) % [place] % (Auto) 7.6 (2.6-8.5) % Eos % (Auto) 4.2 (0-4.4) % Baso % (Auto) 1.3 H (0.2-1.2) % Lymph # (Auto) 2.54 (0.9-3.2) K/mm3 [place] # (Auto) 0.5 (0.1-0.6) K/mm3 Eos # (Auto) 0.3 (0-0.3) K/mm3 Baso # (Auto) 0.1 (0.0-0.1) K/mm3 Abs Immat Gran (auto) 0.03 (0.00-0.031) K/mm3 Absolute Neuts (auto) 2.8 (1.3-6.7) K/mm3 Absolute Nucleated RBC 0.000 (0.0-0.012) K/mm3 Nucleated RBC % 0.0 (0.0-0.2) % PT 13.8 (11.1-14.7) Seconds INR 1.0 APTT 28.8 (22.3-36.8) Seconds Sodium 138 (137-145) mmol/L Potassium 3.6 (3.4-5.0) mmol/L Chloride 103 (98-107) mmol/L Carbon Dioxide 24 (22-30) mmol/L Anion Gap 11 (4-12) mmol/L BUN 15 (7-17) mg/dL Creatinine 0.90 0.77 (0.7-1.2) mg/dL Estim Creat Clear Calc Not Reportable Not Reportable Estimated GFR 60 > 60 (59 - ) Glucose 209 H (65-110) mg/dL POC Capillary Glucose 204 H (65-105) mg/dl Calcium 9.5 (8.4-10.2) mg/dL Total Bilirubin 0.5 (0.2-1.3) mg/dL AST 23 (14-36) U/L ALT 19 (6-35) U/L Alkaline Phosphatase 100 (38-126) U/L Troponin I < 0.012 (0.000-0.034) ng/mL Total Protein 7.0 (6.3-8.2) g/dL Albumin 4.0 (3.5-5.1) g/dL Imaging Data Attestation: I personally reviewed and interpreted this imaging study as follows: My impression: Impressions Head CT 01/20/25 22:46 IMPRESSION: No acute intracranial process. Results reported telephonically to Dr. Beal by Dr. Kingston at 10:47 PM on 01/20/2025. Head/Neck CTA 01/21/25 00:19 IMPRESSION: No large vessel intracranial occlusion, high-grade intracranial stenosis, or aneurysm. Poor filling of the left sigmoid sinus, jugular bulb, and proximal internal jugular vein, possibly due to nonocclusive thrombus at those levels and/or more distal venous thrombosis. Consider MRV for further evaluation/confirmation. Metallic foreign body in the mid and distal left internal jugular vein, possibly representing a fractured guidewire or retrieval loop. Correlate with history of prior procedures. Consider left upper extremity ultrasound to evaluate for thrombus. No carotid or vertebral artery occlusion, dissection, or significant stenosis. Short segment, nonstenotic ulcerative atheromatous plaque at the origin of the left subclavian artery. 2.4 cm left thyroid nodule, recommend nonemergent, outpatient thyroid ultrasound for further characterization. Left hilar lymphadenopathy. Chest X-Ray 01/21/25 00:32 IMPRESSION: No acute cardiopulmonary process. Critical Care Time Critical Care Time Critical Care Time: Yes Total Critical Care Time: 76 Discharge Plan Discharge Clinical Impression: Brain TIA, Retained metal fragment foreign body, Venous thrombosis Patient Disposition: Acute Care Hospital Condition: Stable Patient Language: Italian Prescriptions: No Action One-A-Day Womens Formula 18 mg iron-400 mcg-500 mg Tablet 1 tablet PO DAILY (DME) CPAP See Rx Instructions .Route .MEDSUPPLY Qty: 1 0RF Rx Instructions: Rx: CPAP mask, heated tubing, and CPAP filters. Dx: G47.33 Physician: Dr. Ruth Romero DO DME Company: [employer] glimepiride 1 mg tablet See Rx Instructions .ROUTE .COMPLEX Qty: 180 1RF Dose Instruction: TAKE 1 TABLET BY MOUTH EVERY MORNING ADMINISTER WITH BREAKFAST Rx Instructions: TAKE 1 TABLET BY MOUTH bid bupropion HCl [Wellbutrin XL] 300 mg tablet extended release 24 hr 300 mg PO QAM Qty: 90 0RF levothyroxine 125 mcg tablet 125 mcg PO DAILY Qty: 90 3RF albuterol sulfate 90 mcg/actuation HFA aerosol inhaler 2 inh inhalation Q4H PRN (Reason: shortness of breath or wheezing) Qty: 6.7 0RF Taltz Autoinjector (3 Pack) 80 mg/mL auto-injector subcut fluticasone propionate [Flonase Allergy Relief] 50 mcg/actuation spray,suspension 1 spray intranasal DAILY Qty: 16 3RF Rx Instructions: administer into each nostril losartan 100 mg tablet See Rx Instructions .ROUTE .COMPLEX Qty: 90 2RF Dose Instruction: TAKE 1 TABLET BY MOUTH EVERY DAY Rx Instructions: TAKE 1 TABLET BY MOUTH EVERY DAY meclizine 25 mg tablet 25 mg PO BID PRN (Reason: dizziness) Qty: 20 0RF atorvastatin 80 mg tablet See Rx Instructions .ROUTE .COMPLEX Qty: 90 2RF Dose Instruction: TAKE 1 TABLET BY MOUTH EVERY DAY Rx Instructions: TAKE 1 TABLET BY MOUTH EVERY DAY duloxetine 60 mg capsule,delayed release(DR/EC) 60 mg PO DAILY Qty: 90 1RF omeprazole 20 mg capsule,delayed release(DR/EC) 20 mg PO DAILY Qty: 90 0RF carvedilol 6.25 mg tablet 6.25 mg PO DAILY Qty: 90 0RF cholecalciferol (vitamin D3) 125 mcg (5,000 unit) tablet 125 mcg PO DAILY Qty: 90 0RF Follow-up/Referrals: Brijesh Cardenas MD [Primary Care Provider] - Time of Disposition: 02:45 Quality Stroke Date of last known normal: 01/20/25 Time of last known normal: 19:00 Stroke Scale Stroke Scale 1: Stroke scale date:: 01/20/25 Stroke scale time:: 22:30 1a Level of consciousness: alert-0 1b Level of consciousness questions: answers both correctly-0 1c Level of consciousness commands: obeys both correctly-0 2 Best gaze: normal-0 3 Visual: no visual loss-0 4 Facial palsy: normal-0 5a Motor: left arm: no drift-0 5b Motor: right arm: no drift-0 6a Motor: left leg: no drift-0 6b Motor: right leg: no drift-0 7 Limb ataxia: absent-0 8 Sensory: normal-0 9 Best language: no aphasia-0 10 Dysarthria: normal-0 11 Extinction and inattention: no abnormality-0 Level:: 0
[2025-01-20 22:56] LABS: Estimated Glomerular Filt Rate 60
[2025-01-20 23:10] LABS: Basophils Absolute Auto 0.1 K/mm3 (0.0-0.1); Basophils Percent Auto 1.3 % (0.2-1.2); Eosinophils Absolute Auto 0.3 K/mm3 (0-0.3); Eosinophils Percent Auto 4.2 % (0-4.4); Hematocrit 47.8 % (37.0-47.0); Immature Granulocyte Absolute 0.03 K/mm3 (0.00-0.031); Immature Granulocyte Percent A 0.5 % (0-0.5); Lymphocytes Absolute Auto 2.54 K/mm3 (0.9-3.2); Lymphocytes Percent Auto 40.9 % (18.3-44.2); Mean Corpuscular HGB Conc 31.4 g/dl (32-36); Mean Corpuscular Volume 89.2 fl (80-100); Mean Platelet Volume 10.3 fl (7.4-10.4); Monocytes Absolute Auto 0.5 K/mm3 (0.1-0.6); Monocytes Percent Auto 7.6 % (2.6-8.5); Neutrophils Absolute Auto 2.8 K/mm3 (1.3-6.7); Neutrophils Percent Auto 45.5 % (45.5-73.1); Platelet Count Result 175 k/mm3 (150-375); Red Blood Count 5.36 M/mm3 (4.2-5.4); Red Cell Distribution Width 13.7 % (11.5-14.5); White Blood Count 6.2 K/mm3 (4.5-10.0)
[2025-01-20 23:18] LABS: Alanine Aminotransferase 19 U/L (6-35); Alkaline Phosphatase 100 U/L (38-126); Anion Gap 11 mmol/L (4-12); Aspartate Amino Transferase 23 U/L (14-36); Bilirubin,Total 0.5 mg/dL (0.2-1.3); Blood Urea Nitrogen 15 mg/dL (7-17); Calcium 9.5 mg/dL (8.4-10.2); Carbon Dioxide 24 mmol/L (22-30); Chloride 103 mmol/L (98-107); Estimated Glomerular Filt Rate > 60; Glucose 209 mg/dL (65-110); Potassium 3.6 mmol/L (3.4-5.0); Sodium 138 mmol/L (137-145)
[2025-01-20 23:19] LABS: Partial Thromboplastin Time 28.8 Seconds (22.3-36.8)
--- OUTSIDE RECORDS SUMMARY | 2025-01-20 23:19 | XMS_ITS | Encounter Summary ---
Author Organization [facility] Address [address] [place] [address] Care Team Providers Care Certified Hyperbaric Technologist Name Role Phone Smith Islas MD Primary Care Provider [phone] Encounter Details Date Type Department Care Team (Late st Contact Info) Description 09/26/2004 Outpatient Historical [facility] Internal Medicine [address] [address] Smith Islas MD [address] [place] [id number] Social History Tobacco Use Types Packs/Day Years Used Date Smoking Tobacco: Never Assessed Comments Unknown Sex and Gender Information Value Date Recorded Sex Assigned at Not on file Legal Sex 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 Gender Identity Not on file Sexual Orientation Not on file documented as of this encounter Last Filed Vital Signs Vital Sign Reading Time Taken Comments Blood Pressure 140/80 09/26/2004 4:00 PM DEPARTMENT HEAD [employer]IV[employer] Pulse - - Temperature 36.1 C (97 F) 09/26/2004 4:00 PM DEPARTMENT HEAD [employer] Respiratory Rate - - Oxygen Saturation - - Inhaled Oxygen Concentration - - Weight - - Height - - Body Mass Index - - documented in this encounter Plan of Treatment Not on file documented as of this encounter Visit Diagnoses Not on filedocumented in this encounter Care Teams Certified Hyperbaric Technologist Relationship Specialty Start Date End Date Smith Islas MD [address] [place] [id number] PCP - General 10/22/03 07/11/15 documented as of this encounter
--- OUTSIDE RECORDS SUMMARY | 2025-01-20 23:19 | XMS_ITS | Encounter Summary ---
Author Organization [employer] Address 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
--- OUTSIDE RECORDS SUMMARY | 2025-01-20 23:19 | XMS_ITS | Encounter Summary ---
Author Organization [facility] Address 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
--- OUTSIDE RECORDS SUMMARY | 2025-01-20 23:19 | XMS_ITS | Encounter Summary ---
Author Organization [facility] Address 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 [address] D.O.B: 1945 SSN: [id number] Parent/Guardian if applicable: Patient Insurance: [employer] COMPANY Policy#: [id number] Group #: Best To Call : [phone] Best Time to Call : ANYTIME. May We Leave Message At That Number : YES, LEAVE MESSAGE. Referring to: ORTHOPEDICS Adrian Roth ph: [phone] fax: [phone]. PHYSICAL THERAPY/REHAB [facility] PH :[phone] Reason for referral: wrist pain, back pain and shoulder pain ORDERING PHYSICIAN : BECKA ESCOBEDO MD PRIORITY OF REFERRAL: AT PATIENT'S CONVENIENCE. OFFICE OUTBOUND SALES EXECUTIVE & PHONE: Zara Linares C FOR SCHEDULING USE ONLY FIRST ATTEMPT Date:AUG 21, 2007 Anisha Clark L 09:59 a Spoke with Patient. had to [facility] also faxed referral to [facility] as they schedule their own. pt will susy nix back with appt dates APPOINTMENT DATE : 08/26/2007 APPOINTMENT DATE : 08/22/2007 ( Physical therapy) 08/21/07 03:58 pm Referral number: [employer] NN * Becka Escobedo MD [...] shoulder--reassess. SPECIALTY REFERRAL: ORTHOPEDICS Adrian Roth. ph: [phone] fax: [phone].wrist pain PHYSICAL THERAPY/REHAB [facility]--wrist ,back , shoulder pacheco RETURN VISIT : Instructed to call if not improving. Electronically Signed by: Becka Escobedo MD on Monday, August 20, 2007 documented in this encounter Plan of Treatment Not on file documented as of this encounter Visit Diagnoses Not on filedocumented in this encounter Care Teams Bobbin Drier Relationship Specialty Start Date End Date Becka Escobedo MD [address] [place] [address] PCP - General 10/22/03 07/11/15 documented as of this encounter
--- OUTSIDE RECORDS SUMMARY | 2025-01-20 23:19 | XMS_ITS | Encounter Summary ---
Author Organization [facility] Address 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
--- OUTSIDE RECORDS SUMMARY | 2025-01-20 23:19 | XMS_ITS | Encounter Summary ---
Author Organization [facility] Address [address] [place] [address] Care Team Providers Care Qualifications Examiner Name Role Phone Smith Islas MD Primary Care Provider [phone] Encounter Details Date Type Department Care Team (Latest Contact Info) Description 12/09/2003 Outpatient Historical [facility] Davonte Bermudez MD [address] [facility] [address] [place] [address] ARTHRODESIS STATUS (Primary Dx) Social History Tobacco Use Types Packs/Day Years Used Date Smoking Tobacco: Never Assessed Comments Unknown Sex and Gender Information Value Date Recorded Sex Assigned at Not on file Legal Sex Female 3:30 AM BI TECHNICAL LEAD Gender Identity Not on file Sexual Orientation Not on file documented as of this encounter Plan of Treatment Not on file documented as of this encounter Visit Diagnoses Diagnosis Arthrodesis status- Primary documented in this encounter Care Teams Qualifications Examiner Relationship Specialty Start Date End Date Smith Islas MD [address] [place] [address] [address] [place] [phone] PCP - General 10/22/03 07/11/15 documented as of this encounter
--- OUTSIDE RECORDS SUMMARY | 2025-01-20 23:19 | XMS_ITS | Encounter Summary ---
Author Organization [facility] Address [address] [place] [address] Care Team Providers Care Flare Worker Name Role Phone Smith Islas MD Primary Care Provider [phone] Encounter Details Date Type Department Care Team (Late st Contact Info) Description 12/23/2003 Outpatient Historical [facility] Internal Medicine [address] [address] Smith Islas MD [address] [place] [address] Social History Tobacco Use Types Packs/Day Years Used Date Smoking Tobacco: Never Assessed Comments Unknown Sex and Gender Information Value Date Recorded Sex Assigned at Not on file Legal Sex Female 3:30 AM CUSTOMS COMPLIANCE SPECIALIST Gender Identity Not on file Sexual Orientation Not on file documented as of this encounter Last Filed Vital Signs Vital Sign Reading Time Taken Comments Blood Pressure 162/90 12/23/2003 11:00 AM CUSTOMS COMPLIANCE SPECIALIST Pulse - - Temperature 36.3 C (97.3 F) 12/23/2003 11:00 AM CUSTOMS COMPLIANCE SPECIALIST Respiratory Rate - - Oxygen Saturation - - Inhaled Oxygen Concentration - - Weight 96.2 kg (212 lb) 12/23/2003 11:00 AM CUSTOMS COMPLIANCE SPECIALIST Height - - Body Mass Index 35.28 10/14/2003 10:30 AM CUSTOMS COMPLIANCE SPECIALIST documented in this encounter Plan of Treatment Not on file documented as of this encounter Visit Diagnoses Not on filedocumented in this encounter Care Teams Flare Worker Relationship Specialty Start Date End Date Smith Islas MD [address] [place] [phone] PCP - General 10/22/03 07/11/15 documented as of this encounter
--- OUTSIDE RECORDS SUMMARY | 2025-01-20 23:19 | XMS_ITS | Encounter Summary ---
Author Organization [facility] Address [address] [place] [address] Care Team Providers Care Home Health Clinician Name Role Phone Smith Islas MD Primary Care Provider [phone] Encounter Details Date Type Department Care Team (Late st Contact Info) Description 08/07/2007 Outpatient [facility] Internal Medicine [address] [address] Smith Islas MD [address] [place] [address] Social History Tobacco Use Types Packs/Day Years Used Date Smoking Tobacco: Never Assessed Comments Unknown Sex and Gender Information Value Date Recorded Sex Assigned at Not on file Legal Sex Female 3:30 AM RESIDENTIAL SUPPORT SPECIALIST Gender Identity Not on file Sexual Orientation Not on file documented as of this encounter Plan of Treatment Not on file documented as of this encounter Visit Diagnoses Not on filedocumented in this encounter Care Teams Home Health Clinician Relationship Specialty Start Date End Date Smith Islas MD [address] [place] [address] [address] [place] [address] PCP - General 10/22/03 07/11/15 documented as of this encounter
--- OUTSIDE RECORDS SUMMARY | 2025-01-20 23:19 | XMS_ITS | Encounter Summary ---
Author Organization [facility] Address [address] [place] [address] Care Team Providers Care Car Washer Name Role Phone Becka Escobedo MD Primary Care Provider [phone] Encounter Details Date Type Department Care Team (Late st Contact Info) Description 08/07/2007 Orders Only [facility] Internal Medicine [address] [address] Becka Escobedo MD [address] [place] [address] Social History Tobacco Use Types Packs/Day Years Used Date Smoking Tobacco: Never Assessed Comments Unknown Sex and Gender Information Value Date Recorded Sex Assigned at Not on file Legal Sex Female 3:30 AM COMPRESSOR OPERATOR ADJUSTER Gender Identity Not on file Sexual Orientation Not on file documented as of this encounter Progress Notes * Becka Escobeod MD - 02/06/2008 6:00 PM CDT CENTRAL TEST SCHEDULING DATE: AUG 07, 2007 Note created by: Rossi Herrera E 01:53 p Patient Name : MORRIS STOKES Address: [address] [address] D.O.B: 1945 SSN: [id number] Parent/Guardian if applicable: Patient Insurance: [employer] ID#: [id number] Group#: ORDER(S) #: [id number] xray wrist PLEASE SCHEDULE THE APPOINTMENT AT THE FOLLOWING LOCATION: [facility] [phone]. 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 recent lab from [facility] Patient Education: The patient was allowed to ask questions to stated satisfaction. RETURN VISIT : Instructed to call if not improving. Electronically Signed by: Becka Escobedo MD on Sunday, August 07, 2007 documented in this encounter Plan of Treatment Not on file documented as of this encounter Visit Diagnoses Not on filedocumented in this encounter Care Teams Car Washer Relationship Specialty Start Date End Date Becka Escobedo MD [address] [place] [address] PCP - General 10/22/03 07/11/15 documented as of this encounter
--- OUTSIDE RECORDS SUMMARY | 2025-01-20 23:19 | XMS_ITS | Encounter Summary ---
Author Organization [facility] Address [address] [place] [address] Care Team Providers Care Speech Pathology Teacher Name Role Phone Smith Islas MD Primary Care Provider [phone] Encounter Details Date Type Department Care Team (Late st Contact Info) Description 01/15/2004 Outpatient [facility] Internal Medicine [address] [address] Smith Islas MD [address] [place] [address] Social History Tobacco Use Types Packs/Day Years Used Date Smoking Tobacco: Never Assessed Comments Unknown Sex and Gender Information Value Date Recorded Sex Assigned at Not on file Legal Sex Female 3:30 AM HISTOLOGIC TECHNICIAN Gender Identity Not on file Sexual Orientation Not on file documented as of this encounter Plan of Treatment Not on file documented as of this encounter Visit Diagnoses Not on filedocumented in this encounter Care Teams Speech Pathology Teacher Relationship Specialty Start Date End Date Smith Islas MD [address] [place] [address] [address] [place] [address] PCP - General 10/22/03 07/11/15 documented as of this encounter
--- OUTSIDE RECORDS SUMMARY | 2025-01-20 23:19 | XMS_ITS | Encounter Summary ---
Author Organization [facility] Address [address] [place] [address] Care Team Providers Care Janitorial Supervisor Name Role Phone Smith Islas MD Primary Care Provider [phone] Encounter Details Date Type Department Care Team (Late st Contact Info) Description 08/04/2004 Outpatient [facility] Internal Medicine [address] [address] Smith Islas MD [address] [place] [address] Social History Tobacco Use Types Packs/Day Years Used Date Smoking Tobacco: Never Assessed Comments Unknown Sex and Gender Information Value Date Recorded Sex Assigned at Not on file Legal Sex Female 3:30 AM CABLE REELER Gender Identity Not on file Sexual Orientation Not on file documented as of this encounter Plan of Treatment Not on file documented as of this encounter Visit Diagnoses Not on filedocumented in this encounter Care Teams Janitorial Supervisor Relationship Specialty Start Date End Date Smith Islas MD [address] [place] [address] [address] [place] [address] PCP - General 10/22/03 07/11/15 documented as of this encounter
--- OUTSIDE RECORDS SUMMARY | 2025-01-20 23:19 | XMS_ITS | Encounter Summary ---
Author Organization [facility] Address [address] [place] [address] Care Team Providers Care Teacher Instrumental Name Role Phone Smith Islas MD Primary Care Provider [phone] Encounter Details Date Type Department Care Team (Late st Contact Info) Description 09/21/2004 Outpatient Historical [facility] Internal Medicine [address] [address] Smith Islas MD [address] [place] [address] Social History Tobacco Use Types Packs/Day Years Used Date Smoking Tobacco: Never Assessed Comments Unknown Sex and Gender Information Value Date Recorded Sex Assigned at Not on file Legal Sex Female 3:30 AM AUTHORS MOTIVATIONAL Gender Identity Not on file Sexual Orientation Not on file documented as of this encounter Last Filed Vital Signs Vital Sign Reading Time Taken Comments Blood Pressure 112/70 09/21/2004 11:00 AM AUTHORS MOTIVATIONAL Pulse - - Temperature 36.1 C (96.9 F) 09/21/2004 11:00 AM AUTHORS MOTIVATIONAL Respiratory Rate - - Oxygen Saturation - - Inhaled Oxygen Concentration - - Weight 96.2 kg (212 lb) 09/21/2004 11:00 AM AUTHORS MOTIVATIONAL Height - - Body Mass Index 35.28 10/14/2003 10:30 AM AUTHORS MOTIVATIONAL documented in this encounter Plan of Treatment Not on file documented as of this encounter Visit Diagnoses Not on filedocumented in this encounter Care Teams Teacher Instrumental Relationship Specialty Start Date End Date Smith Islas MD [address] [place] [phone] PCP - General 10/22/03 07/11/15 documented as of this encounter
--- OUTSIDE RECORDS SUMMARY | 2025-01-20 23:19 | XMS_ITS | Encounter Summary ---
Author Organization [facility] Address [address] [place] [address] Care Team Providers Care Energy Derivatives Trader Name Role Phone Smith Islas MD Primary Care Provider [phone] Encounter Details Date Type Department Care Team (Late st Contact Info) Description 08/04/2004 Outpatient [facility] Internal Medicine [address] [address] Smith Islas MD [address] [place] [address] Social History Tobacco Use Types Packs/Day Years Used Date Smoking Tobacco: Never Assessed Comments Unknown Sex and Gender Information Value Date Recorded Sex Assigned at Not on file Legal Sex Female 3:30 AM EARTH SCIENCE TECHNICAL OFFICER Gender Identity Not on file Sexual Orientation Not on file documented as of this encounter Plan of Treatment Not on file documented as of this encounter Visit Diagnoses Not on filedocumented in this encounter Care Teams Energy Derivatives Trader Relationship Specialty Start Date End Date Smith Islas MD [address] [place] [address] [address] [place] [address] PCP - General 10/22/03 07/11/15 documented as of this encounter
--- OUTSIDE RECORDS SUMMARY | 2025-01-20 23:19 | XMS_ITS | Encounter Summary ---
Author Organization [facility] Address [address] [place] [address] Care Team Providers Care Liquor Blender Name Role Phone Smith Islas MD Primary Care Provider [phone] Encounter Details Date Type Department Care Team (Late st Contact Info) Description 02/26/2004 Outpatient Historical [facility] Internal Medicine [address] [address] Smith Islas MD [address] [place] [address] Social History Tobacco Use Types Packs/Day Years Used Date Smoking Tobacco: Never Assessed Comments Unknown Sex and Gender Information Value Date Recorded Sex Assigned at Not on file Legal Sex Female 3:30 AM DOG GROOMER Gender Identity Not on file Sexual Orientation Not on file documented as of this encounter Plan of Treatment Not on file documented as of this encounter Visit Diagnoses Not on filedocumented in this encounter Care Teams Liquor Blender Relationship Specialty Start Date End Date Smith Islas MD [address] [place] [address] [address] [place] [address] PCP - General 10/22/03 07/11/15 documented as of this encounter
--- OUTSIDE RECORDS SUMMARY | 2025-01-20 23:19 | XMS_ITS | Encounter Summary ---
Author Organization [facility] Address [address] [place] [address] Care Team Providers Care Public Policy Coordinator Name Role Phone Smith Islas MD Primary Care Provider [phone] Encounter Details Date Type Department Care Team (Late st Contact Info) Description 08/04/[address] [facility] Internal Medicine [address] [address] Smith Islas MD [address] [place] [address] Social History Tobacco Use Types Packs/Day Years Used Date Smoking Tobacco: Never Assessed Comments Unknown Sex and Gender Information Value Date Recorded Sex Assigned at Not on file Legal Sex Female 3:30 AM MAINTENANCE INSPECTOR Gender Identity Not on file Sexual Orientation Not on file documented as of this encounter Plan of Treatment Not on file documented as of this encounter Visit Diagnoses Not on filedocumented in this encounter Care Teams Public Policy Coordinator Relationship Specialty Start Date End Date Smith Islas MD [address] [place] [address] [address] [place] [address] PCP - General 10/22/03 07/11/15 documented as of this encounter
--- OUTSIDE RECORDS SUMMARY | 2025-01-20 23:19 | XMS_ITS | Encounter Summary ---
Author Organization [facility] Address [address] [place] [address] Care Team Providers Care Braid Folder Name Role Phone Smith Islas MD Primary Care Provider [phone] Encounter Details Date Type Department Care Team (Late st Contact Info) Description 01/15/2004 Outpatient [facility] Internal Medicine [address] [address] Smith Islas MD [address] [place] [address] Social History Tobacco Use Types Packs/Day Years Used Date Smoking Tobacco: Never Assessed Comments Unknown Sex and Gender Information Value Date Recorded Sex Assigned at Not on file Legal Sex Female 3:30 AM SOCIOLOGY FACULTY MEMBER Gender Identity Not on file Sexual Orientation Not on file documented as of this encounter Plan of Treatment Not on file documented as of this encounter Visit Diagnoses Not on filedocumented in this encounter Care Teams Braid Folder Relationship Specialty Start Date End Date Smith Islas MD [address] [place] [address] [address] [place] [address] PCP - General 10/22/03 07/11/15 documented as of this encounter
--- OUTSIDE RECORDS SUMMARY | 2025-01-20 23:19 | XMS_ITS | Encounter Summary ---
Author Organization [facility] Address [address] [place] [address] Care Team Providers Care Gasoline Pump Mechanic Name Role Phone Smith Islas MD Primary Care Provider [phone] Encounter Details Date Type Department Care Team (Late st Contact Info) Description 02/26/2004 Outpatient Historical [facility] Internal Medicine [address] [address] Smith Islas MD [address] [place] [address] Social History Tobacco Use Types Packs/Day Years Used Date Smoking Tobacco: Never Assessed Comments Unknown Sex and Gender Information Value Date Recorded Sex Assigned at Not on file Legal Sex Female 3:30 AM AUTOMATION CONTROLS ENGINEER Gender Identity Not on file Sexual Orientation Not on file documented as of this encounter Plan of Treatment Not on file documented as of this encounter Visit Diagnoses Not on filedocumented in this encounter Care Teams Gasoline Pump Mechanic Relationship Specialty Start Date End Date Smith Islas MD [address] [place] [address] [address] [place] [address] PCP - General 10/22/03 07/11/15 documented as of this encounter
--- OUTSIDE RECORDS SUMMARY | 2025-01-20 23:19 | XMS_ITS | Encounter Summary ---
Author Organization [facility] Address [address] [place] [address] Care Team Providers Care Interventional Sale Consultant Name Role Phone Smith Islas MD Primary Care Provider Encounter Details Date Type Department Care Team (Late st Contact Info) Description 10/04/[address] [facility] Internal Medicine [address] [address] Smith Islas MD [address] [place] [phone] Social History Tobacco Use Types Packs/Day Years Used Date Smoking Tobacco: Never Assessed Comments Unknown Sex and Gender Information Value Date Recorded Sex Assigned at Not on file Legal Sex Female 3:30 AM PIERCE AND SHAVE PRESS OPERATOR Gender Identity Not on file Sexual Orientation Not on file documented as of this encounter Plan of Treatment Not on file documented as of this encounter Visit Diagnoses Not on filedocumented in this encounter Care Teams Interventional Sale Consultant Relationship Specialty Start Date End Date Smith Islas MD [address] [place] [address] [address] [place] [address] PCP - General 10/22/03 07/11/15 documented as of this encounter
--- OUTSIDE RECORDS SUMMARY | 2025-01-20 23:19 | XMS_ITS | Encounter Summary ---
Author Organization [facility] Address [address] [place] [address] Care Team Providers Care Belt Repairer Name Role Phone Smith Islas MD Primary Care Provider [phone] Encounter Details Date Type Department Care Team (Late st Contact Info) Description 08/04/2004 Outpatient [facility] Internal Medicine [address] [address] Smith Islas MD [address] [place] [address] Social History Tobacco Use Types Packs/Day Years Used Date Smoking Tobacco: Never Assessed Comments Unknown Sex and Gender Information Value Date Recorded Sex Assigned at Not on file Legal Sex Female 3:30 AM WIND TUNNEL ENGINEER Gender Identity Not on file Sexual Orientation Not on file documented as of this encounter Plan of Treatment Not on file documented as of this encounter Visit Diagnoses Not on filedocumented in this encounter Care Teams Belt Repairer Relationship Specialty Start Date End Date Smith Islas MD [address] [place] [address] [address] [place] [address] PCP - General 10/22/03 07/11/15 documented as of this encounter
--- OUTSIDE RECORDS SUMMARY | 2025-01-20 23:19 | XMS_ITS | Encounter Summary ---
Author Organization [facility] Address [address] [place] [address] Care Team Providers Care Reducing Machine Operator Name Role Phone Smith Islas MD Primary Care Provider [phone] Encounter Details Date Type Department Care Team (Latest Contact Info) Description 10/02/2007 Outpatient Historical [facility] Internal Medicine [address] [address] Smith Islas MD [address] [place] [phone] DM w/o Complication Type II (CMS/HCC) Social History Tobacco Use Types Packs/Day Years Used Date Smoking Tobacco: Never Assessed Comments Unknown Sex and Gender Information Value Date Recorded Sex Assigned at Not on file Legal Sex Female 3:30 AM RESIDENTIAL LIVING ASSISTANT Gender Identity Not on file Sexual Orientation Not on file documented as of this encounter Plan of Treatment Not on file documented as of this encounter Procedures Procedure Name Priority Date/Time Associated Diagnosis Comments MICROALBUMIN/CREATININ E RATIO, RANDOM UR Routine 10/02/2007 9:09 AM RESIDENTIAL LIVING ASSISTANT TSH Routine 10/02/2007 9:05 AM RESIDENTIAL LIVING ASSISTANT HEMOGLOBIN A1C Routine 10/02/2007 9:05 AM RESIDENTIAL LIVING ASSISTANT LIPID PANEL Routine 10/02/2007 9:05 AM RESIDENTIAL LIVING ASSISTANT COMPREHENSIVE METABOLIC PANEL Routine 10/02/2007 9:05 AM RESIDENTIAL LIVING ASSISTANT documented in this encounter Results * MICROALBUMIN/CREATININE RATIO, RANDOM UR (10/02/2007 9:09 AM RESIDENTIAL LIVING ASSISTANT) MICROALBUMIN/C REAT RATIO, UR 4 0 - 29 mg/g creatinine INTERFACE SYSTEM 10/02/2007 9:09 AM RESIDENTIAL LIVING ASSISTANT Smith Islas MD URINE ORDERABLES Edited Performing Organization Address [facility] de Phone Number INTERFACE SYSTEM Refer to clinic/hospital department * (ABNORMAL) LIPID PANEL (10/02/2007 9:05 AM RESIDENTIAL LIVING ASSISTANT) CHOLESTEROL 199 100 - 199 mg/dL INTERFACE SYSTEM TRIGLYCERIDE 109 10 - 149 mg/dL INTERFACE SYSTEM HDL 73(H) 40 - 59 mg/dL INTERFACE SYSTEM CHOL/HDL RATIO 2.7 2.0 - 5.0 INTER FACE SYSTEM LDL CALCULATED 104(H) <=99 mg/dL INTERFACE SYSTEM LIPID PANEL COMMENT See Below INTERFACE SYSTEM Comment: The adult ATP and pediatric NCEP classifications for lipids are available on the [facility] at: [email or web address] Select: Lab Policies and Procedures,Current Select: Lipid Panel Interpretation 10/02/2007 9:05 AM RESIDENTIAL LIVING ASSISTANT Smith Islas MD CHEMISTRY ORDERABLES Edited Performing Organization Address [facility] de Phone Number INTERFACE SYSTEM Refer to clinic/hospital department * (ABNORMAL) COMPREHENSIVE METABOLIC PANEL (10/02/2007 9:05 AM RESIDENTIAL LIVING ASSISTANT) GLUCOSE 112(H) 65 - 99 mg/dL INTERFACE [...] and non- Americans is available on the [facility] at: [email or web address] Select: Lab Policies and Procedures Select: Reference Ranges - GFR 10/02/2007 9:05 AM RESIDENTIAL LIVING ASSISTANT Smith Islas MD CHEMISTRY ORDERABLES Edited Performing Organization Address [facility] Phone Number INTERFACE SYSTEM Refer to clinic/hospital department * TSH (10/02/2007 9:05 AM RESIDENTIAL LIVING ASSISTANT) TSH 2.89 0.27 - 4.20 uU/mL INTERFACE SYSTEM 10/02/2007 9:05 AM RESIDENTIAL LIVING ASSISTANT Smith Islas MD CHEMISTRY ORDERABLES Edited Performing Organization Address [facility] Phone Number INTERFACE SYSTEM Refer to clinic/hospital department * (ABNORMAL) HEMOGLOBIN A1C (10/02/2007 9:05 AM RESIDENTIAL LIVING ASSISTANT) HEMOGLOBIN A1C 6.8(H) 4.1 - 6.1 % of Hgb INTERFACE SYSTEM GLUCOSE, MEAN BLOOD 165 mg/dL INTERFACE SYSTEM 10/02/2007 9:05 AM RESIDENTIAL LIVING ASSISTANT Smith Islas MD CHEMISTRY ORDERABLES Edited Performing Organization Address [facility] Co de Phone Number INTERFACE SYSTEM Refer to clinic/hospital department documented in this encounter Visit Diagnoses Diagnosis Type II or unspecified type diabetes mellitus without mention of complication, not stated as uncontrolled documented in this encounter Care Teams Reducing Machine Operator Relationship Specialty Start Date End Date Smith Islas MD [address] [place] [phone] PCP - General 10/22/03 07/11/15 documented as of this encounter
--- OUTSIDE RECORDS SUMMARY | 2025-01-20 23:19 | XMS_ITS | Encounter Summary ---
Author Organization [facility] Address [address] [place] [address] Care Team Providers Care Supervisor Money Room Name Role Phone Smith Islas MD Primary Care Provider [phone] Encounter Details Date Type Department Care Team (Late st Contact Info) Description 10/04/2007 Outpatient [facility] Internal Medicine [address] [address] Smith Islas MD [address] [place] [phone] Social History Tobacco Use Types Packs/Day Years Used Date Smoking Tobacco: Never Assessed Comments Unknown Sex and Gender Information Value Date Recorded Sex Assigned at Not on file Legal Sex Female 3:30 AM LICENSED MARINE ENGINEER Gender Identity Not on file Sexual Orientation Not on file documented as of this encounter Plan of Treatment Not on file documented as of this encounter Visit Diagnoses Not on filedocumented in this encounter Care Teams Supervisor Money Room Relationship Specialty Start Date End Date Smith Islas MD [address] [place] [address] [address] [place] [address] PCP - General 10/22/03 07/11/15 documented as of this encounter
[2025-01-20 23:20] VITALS: BP 163/82; PULSE 77; RESP 12; O2SAT 97
--- OUTSIDE RECORDS SUMMARY | 2025-01-20 23:20 | XMS_ITS | Encounter Summary ---
Author Organization Mobile Location, [facility] Address [address] [place] [address] Care Team Providers Care Diamond Sorter Name Role Phone Smith Islas MD Primary Care Provider [phone] Encounter Details Date Type Department Care Team (Latest Contact Info) Description 11/25/2008 Outpatient Historical [facility] DRAW SITE Smith Islas MD [address] [address] DM w/o Complication Type II (CMS/HCC) Social History Tobacco Use Types Packs/Day Years Used Date Smoking Tobacco: Former Cigarettes Q uit: 06/26/1988 Alcohol Use Standard Drinks/Week Comments No 0 (1 standard drink = 0.6 oz pur e alcohol) Comments No Sex and Gender Information Value Date Recorded Sex Assigned at Not on file Legal Sex Female 3:30 AM BLASTING CONTRACT MINER Gender Identity Not on file Sexual Orientation Not on file documented as of this encounter Plan of Treatment Not on file documented as of this encounter Visit Diagnoses Diagnosis Type II or unspecified type diabetes mellitus without mention of complication, not stated as uncontrolled documented in this encounter Care Teams Diamond Sorter Relationship Specialty Start Date End Date Smith Islas MD [address] [place] [address] [address] [facility] [phone] PCP - General 10/22/03 07/11/15 documented as of this encounter
--- OUTSIDE RECORDS SUMMARY | 2025-01-20 23:20 | XMS_ITS | Encounter Summary ---
Author Organization [facility] Address [address] [place] [address] Care Team Providers Care Advice Line Rn Name Role Phone Smith Islas MD Primary Care Provider [phone] Encounter Details Date Type Department Care Team (Late st Contact Info) Description 06/27/2005 Outpatient Historical [facility] Internal Medicine [address] [address] Smith Islas MD [address] [place] [phone] Social History Tobacco Use Types Packs/Day Years Used Date Smoking Tobacco: Never Assessed Comments Unknown Sex and Gender Information Value Date Recorded Sex Assigned at Not on file Legal Sex Female 3:30 AM BROADCAST OPERATIONS DIRECTOR Gender Identity Not on file [...] Body Mass Index 36.61 10/14/2003 10:30 AM BROADCAST OPERATIONS DIRECTOR documented in this encounter Plan of Treatment Not on file documented as of this encounter Visit Diagnoses Not on filedocumented in this encounter Care Teams Advice Line Rn Relationship Specialty Start Date End Date Smith Islas MD [address] [place] [phone] PCP - General 10/22/03 07/11/15 documented as of this encounter
--- OUTSIDE RECORDS SUMMARY | 2025-01-20 23:20 | XMS_ITS | Encounter Summary ---
Author Organization [facility] Address [address] [place] [address] Care Team Providers Care Social Media Executive Name Role Phone Smith Islas MD Primary Care Provider [phone] Encounter Details Date Type Department Care Team (Late st Contact Info) Description 02/10/2009 Outpatient Historical [facility] Smith Islas MD [address] [facility] [address] [place] [address] Cough Social History Tobacco Use Types Packs/Day Years Used Date Smoking Tobacco: Former Cigarettes Q uit: 06/26/1988 Alcohol Use Standard Drinks/Week Comments No 0 (1 standard drink = 0.6 oz pur e alcohol) Comments No Sex and Gender Information Value Date Recorded Sex Assigned at Not on file Legal Sex Female 3:30 AM COUNTRY SINGER Gender Identity Not on file Sexual Orientation Not on file documented as of this encounter Plan of Treatment Not on file documented as of this encounter Visit Diagnoses Diagnosis Cough documented in this encounter Care Teams Social Media Executive Relationship Specialty Start Date End Date Smith Islas MD [address] [facility] [address] [place] [address] PCP - General 10/22/03 07/11/15 documented as of this encounter
--- OUTSIDE RECORDS SUMMARY | 2025-01-20 23:20 | XMS_ITS | Encounter Summary ---
Author Organization [facility] Address [address] [place] [address] Care Team Providers Care Steel Detailer Name Role Phone Smith Islas MD Primary Care Provider [phone] Encounter Details Date Type Department Care Team (Late st Contact Info) Description 06/01/2006 Outpatient Historical [facility] Internal Medicine [address] [address] Smith Islas MD [address] [place] [phone] Social History Tobacco Use Types Packs/Day Years Used Date Smoking Tobacco: Never Assessed Comments Unknown Sex and Gender Information Value Date Recorded Sex Assigned at Not on file Legal Sex Female 3:30 AM STAFF THERAPIST Gender Identity Not on file Sexual [...] Body Mass Index 36.61 10/14/2003 10:30 AM STAFF THERAPIST documented in this encounter Plan of Treatment Not on file documented as of this encounter Visit Diagnoses Not on filedocumented in this encounter Care Teams Steel Detailer Relationship Specialty Start Date End Date Smith Islas MD [address] [place] [phone] PCP - General 10/22/03 07/11/15 documented as of this encounter
--- OUTSIDE RECORDS SUMMARY | 2025-01-20 23:20 | XMS_ITS | Encounter Summary ---
Author Organization [facility] Address [address] [place] [address] Care Team Providers Care Qualified Craft Worker Electrician Name Role Phone Smith Islas MD Primary Care Provider [phone] Encounter Details Date Type Department Care Team (Late st Contact Info) Description 12/21/2004 Outpatient Historical [facility] Internal Medicine [address] [address] Smith Islas MD [address] [place] [phone] Social History Tobacco Use Types Packs/Day Years Used Date Smoking Tobacco: Never Assessed Comments Unknown Sex and Gender Information Value Date Recorded Sex Assigned at Not on file Legal Sex Female 3:30 AM GRINDER AND HONER OPERATOR AUTOMATIC Gender Identity Not on file Sexual Orientation Not on file documented as of this encounter Last Filed Vital Signs Vital Sign Reading Time Taken Comments Blood Pressure 130/70 12/21/2004 10:30 AM GRINDER AND HONER OPERATOR AUTOMATIC Pulse - - Temperature - - Respiratory Rate - - Oxygen Saturation - - Inhaled Oxygen Concentration - - Weight 95.3 kg (210 lb) 12/21/2004 10:30 AM GRINDER AND HONER OPERATOR AUTOMATIC Height - - Body Mass Index 34.95 10/14/2003 10:30 AM GRINDER AND HONER OPERATOR AUTOMATIC documented in this encounter Plan of Treatment Not on file documented as of this encounter Visit Diagnoses Not on filedocumented in this encounter Care Teams Qualified Craft Worker Electrician Relationship Specialty Start Date End Date Smith Islas MD [address] [place] [phone] PCP - General 10/22/03 07/11/15 documented as of this encounter
--- OUTSIDE RECORDS SUMMARY | 2025-01-20 23:20 | XMS_ITS | Encounter Summary ---
Author Organization [facility] Address [address] [place] [address] Care Team Providers Care Rag Cutting Machine Feeder Name Role Phone Smith Islas MD Primary Care Provider [phone] Encounter Details Date Type Department Care Team (Late st Contact Info) Description 08/31/2006 Outpatient Historical [facility] Internal Medicine [address] [address] Smith Islas MD [address] [place] [phone] Social History Tobacco Use Types Packs/Day Years Used Date Smoking Tobacco: Never Assessed Comments Unknown Sex and Gender Information Value Date Recorded Sex Assigned at Not on file Legal Sex Female 3:30 AM TURNER MACHINE Gender Identity Not on file Sexual Orientation Not on file documented as of this encounter Last Filed Vital Signs Vital Sign Reading Time Taken Comments Blood Pressure 130/80 08/31/2006 9:30 AM TURNER MACHINE Pulse - - Temperature - - Respiratory Rate - - Oxygen Saturation - - Inhaled Oxygen Concentration - - Weight 98 kg (216 lb) 08/31/2006 9:30 AM TURNER MACHINE Height - - Body Mass Index 35.94 10/14/2003 10:30 AM TURNER MACHINE documented in this encounter Plan of Treatment Not on file documented as of this encounter Visit Diagnoses Not on filedocumented in this encounter Care Teams Rag Cutting Machine Feeder Relationship Specialty Start Date End Date Smith Islas MD [address] [place] [phone] PCP - General 10/22/03 07/11/15 documented as of this encounter
--- OUTSIDE RECORDS SUMMARY | 2025-01-20 23:20 | XMS_ITS | Clinical Summary ---
Author Organization [facility] Address [address] [place] [address] Phone Care Team Providers Care Medical Engineer Name Role Phone Provider, Not On File Primary Care Provider Unav ailable Social History Tobacco Use Types Packs/Day Years Used Date Smoking Tobacco: Never Assessed Comments Unknown Sex and Gender Information Value Date Recorded Sex Assigned at Not on file Legal Sex Female 1:37 PM MANAGER PRODUCT Gender Identity Not on file Sexual Orientation [...] age to complete this topic Care Teams Medical Engineer Relationship Specialty Start Date End Date Provider, Not On File [place] PCP - General 07/20/15
--- OUTSIDE RECORDS SUMMARY | 2025-01-20 23:20 | XMS_ITS | Encounter Summary ---
Author Organization [facility] Address [address] [place] [address] Care Team Providers Care Speed Winder Name Role Phone Smith Islas MD Primary Care Provider [phone] Encounter Details Date Type Department Care Team (Latest Contact Info) Description 05/17/2009 Outpatient Historical [facility] DRAW SITE Smith Islas MD [address] [address] DM w/o Complication Type II (CMS/HCC) Social History Tobacco Use Types Packs/Day Years Used Date Smoking Tobacco: Former Cigarettes Q uit: 06/26/1988 Alcohol Use Standard Drinks/Week Comments No 0 (1 standard drink = 0.6 oz pur e alcohol) Comments No Sex and Gender Information Value Date Recorded Sex Assigned at Not on file Legal Sex Female 3:30 AM VENDOR MANAGER Gender Identity Not on file Sexual Orientation Not on file documented as of this encounter Plan of Treatment Not on file documented as of this encounter Visit Diagnoses Diagnosis Type II or unspecified type diabetes mellitus without mention of complication, not stated as uncontrolled documented in this encounter Care Teams Speed Winder Relationship Specialty Start Date End Date Smith Islas MD [address] [place] [address] [address] [place] [phone] PCP - General 10/22/03 07/11/15 documented as of this encounter
--- OUTSIDE RECORDS SUMMARY | 2025-01-20 23:20 | XMS_ITS | Encounter Summary ---
Author Organization [facility] Address [address] [place] [address] Care Team Providers Care News Camera Operator Name Role Phone Smith Islas MD Primary Care Provider [phone] Encounter Details Date Type Department Care Team (Late st Contact Info) Description 11/03/2005 Outpatient [facility] Internal Medicine [address] [address] Smith Islas MD [address] [place] [phone] Social History Tobacco Use Types Packs/Day Years Used Date Smoking Tobacco: Never Assessed Comments Unknown Sex and Gender Information Value Date Recorded Sex Assigned at Not on file Legal Sex Female 3:30 AM CUSTOMER OPERATIONS SPECIALIST Gender Identity Not on file Sexual Orientation Not on file documented as of this encounter Plan of Treatment Not on file documented as of this encounter Visit Diagnoses Not on filedocumented in this encounter Care Teams News Camera Operator Relationship Specialty Start Date End Date Smith Islas MD [address] [place] [address] [address] [place] [address] PCP - General 10/22/03 07/11/15 documented as of this encounter
--- OUTSIDE RECORDS SUMMARY | 2025-01-20 23:20 | XMS_ITS | Encounter Summary ---
Author Organization [facility] Address [address] [place] [address] Care Team Providers Care Solar Photovoltaic Electrician Name Role Phone Smith Islas MD Primary Care Provider [phone] Encounter Details Date Type Department Care Team (Late st Contact Info) Description 01/15/2007 Orders Only [facility] Internal Medicine [address] [address] Smith Islas MD [address] [place] [phone] Social History Tobacco Use Types Packs/Day Years Used Date Smoking Tobacco: Never Assessed Comments Unknown Sex and Gender Information Value Date Recorded Sex Assigned at Not on file Legal Sex Female 3:30 AM PRODUCT MANAGEMENT MANAGER Gender Identity Not on file Sexual Orientation Not on file documented as of this encounter Progress Notes * Smith Islas MD - 02/13/2008 5:44 PM CDT TIME:02:50 pm PATIENT`S HOME PHONE: PATIENT`S WORK PHONE: PATIENT`S INSURANCE: [employer] WHO TOOK THE CALL: Maribel Cobb L GENERAL INFORMATION WHO CALLED: Pharmacy called. PHARMACY NUMBER: [phone] SECTION 1: REQUESTED ACTION licasl 01/15/07 at [...] on filedocumented in this encounter Care Teams Solar Photovoltaic Electrician Relationship Specialty Start Date End Date Smith Islas MD [address] [place] [phone] PCP - General 10/22/03 07/11/15 documented as of this encounter
--- OUTSIDE RECORDS SUMMARY | 2025-01-20 23:20 | XMS_ITS | Encounter Summary ---
Author Organization [facility] Address [address] [place] [address] Care Team Providers Care Materials Handling Coordinator Name Role Phone Smith Islas MD Primary Care Provider [phone] Encounter Details Date Type Department Care Team (Late st Contact Info) Description 11/30/2006 Orders Only [facility] Internal Medicine [address] [address] Smith Islas MD [address] [place] [phone] Social History Tobacco Use Types Packs/Day Years Used Date Smoking Tobacco: Never Assessed Comments Unknown Sex and Gender Information Value Date Recorded Sex Assigned at Not on file Legal Sex Female 3:30 AM DATE PULLER Gender Identity Not on file Sexual Orientation [...] no significant smoking history. 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 LAB ORDERS: 3 mo Order number: [id number] Test Ordered: COMPREHENSIVE METABOLIC PANEL W/ GLOMERULAR FILTRATION RATE, ESTIMATED (EGFR) 24330 Order number: [id number] Test Ordered: HEMOGLOBIN A1c 496 Order number: [id number] Test Ordered: LIPID PANEL 7600 Order number: [id number] Test Ordered: TSH 899 311-DEPRESSION doing better [...] filedocumented in this encounter Care Teams Materials Handling Coordinator Relationship Specialty Start Date End Date Smith Islas MD [address] [place] [phone] PCP - General 10/22/03 07/11/15 documented as of this encounter
--- OUTSIDE RECORDS SUMMARY | 2025-01-20 23:20 | XMS_ITS | Encounter Summary ---
Author Organization [facility] Address [address] [place] [address] Care Team Providers Care Window Draper Name Role Phone Smith Ilsas MD Primary Care Provider [phone] Encounter Details Date Type Department Care Team (Late st Contact Info) Description 11/21/2005 Outpatient Historical [facility] Internal Medicine [address] [address] Smith Islas MD [address] [place] [phone] Social History Tobacco Use Types Packs/Day Years Used Date Smoking Tobacco: Never Assessed Comments Unknown Sex and Gender Information Value Date Recorded Sex Assigned at Not on file Legal Sex Female 3:30 AM AVIATION TECHNICAL SYSTEMS SPECIALIST Gender Identity Not on file Sexual Orientation Not on file documented as of this encounter Last Filed Vital Signs Vital Sign Reading Time Taken Comments Blood Pressure 130/80 11/21/2005 9:45 AM AVIATION TECHNICAL SYSTEMS SPECIALIST Pulse - - Temperature 36.6 C (97.8 F) 11/21/2005 9:45 AM AVIATION TECHNICAL SYSTEMS SPECIALIST Respiratory Rate - - Oxygen Saturation - - Inhaled Oxygen Concentration - - Weight 104.3 kg (230 lb) 11/21/2005 9:45 AM AVIATION TECHNICAL SYSTEMS SPECIALIST Height - - Body Mass Index 38.27 10/14/2003 10:30 AM AVIATION TECHNICAL SYSTEMS SPECIALIST documented in this encounter Plan of Treatment Not on file documented as of this encounter Visit Diagnoses Not on filedocumented in this encounter Care Teams Window Draper Relationship Specialty Start Date End Date Smith Islas MD [address] [place] [phone] PCP - General 10/22/03 07/11/15 documented as of this encounter
--- OUTSIDE RECORDS SUMMARY | 2025-01-20 23:20 | XMS_ITS | Encounter Summary ---
Author Organization [facility] Address [address] [place] [address] Care Team Providers Care Speeder Operator Name Role Phone Smith Islas MD Primary Care Provider [phone] Encounter Details Date Type Department Care Team (Late st Contact Info) Description 11/30/2006 Outpatient Historical [facility] Internal Medicine [address] [address] Smith Islas MD [address] [place] [phone] Social History Tobacco Use Types Packs/Day Years Used Date Smoking Tobacco: Never Assessed Comments Unknown Sex and Gender Information Value Date Recorded Sex Assigned at Not on file Legal Sex Female 3:30 AM MINE ENGINEER Gender Identity Not on file Sexual Orientation Not on file documented as of this encounter Last Filed Vital Signs Vital Sign Reading Time Taken Comments Blood Pressure 120/70 11/30/2006 9:30 AM MINE ENGINEER Pulse - - Temperature - - Respiratory Rate - - Oxygen Saturation - - Inhaled Oxygen Concentration - - Weight 98.9 kg (218 lb) 11/30/2006 9:30 AM MINE ENGINEER Height - - Body Mass Index 36.28 10/14/2003 10:30 AM MINE ENGINEER documented in this encounter Plan of Treatment Not on file documented as of this encounter Visit Diagnoses Not on filedocumented in this encounter Care Teams Speeder Operator Relationship Specialty Start Date End Date Smith Islas MD [address] [place] [phone] PCP - General 10/22/03 07/11/15 documented as of this encounter
--- OUTSIDE RECORDS SUMMARY | 2025-01-20 23:20 | XMS_ITS | Encounter Summary ---
Author Organization [facility] Address [address] [place] [address] Care Team Providers Care Hedge Trimmer Name Role Phone Smith Islas MD Primary Care Provider [phone] Encounter Details Date Type Department Care Team (Late st Contact Info) Description 06/06/2005 Outpatient Historical [facility] Internal Medicine [address] [address] Smith Islas MD [address] [place] [address] Social History Tobacco Use Types Packs/Day Years Used Date Smoking Tobacco: Never Assessed Comments Unknown Sex and Gender Information Value Date Recorded Sex Assigned at Not on file Legal Sex Female 3:30 AM RESIDENTIAL DIRECTOR Gender Identity Not on file Sexual Orientation Not on file documented as of this encounter Plan of Treatment Not on file documented as of this encounter Visit Diagnoses Not on filedocumented in this encounter Care Teams Hedge Trimmer Relationship Specialty Start Date End Date Smith Islas MD [address] [place] [address] [address] [place] [address] PCP - General 10/22/03 07/11/15 documented as of this encounter
--- OUTSIDE RECORDS SUMMARY | 2025-01-20 23:20 | XMS_ITS | Encounter Summary ---
Author Organization [facility] Address [address] [place] [address] Care Team Providers Care Display Fabricator Name Role Phone Smith Islas MD Primary Care Provider [phone] Encounter Details Date Type Department Care Team (Late st Contact Info) Description 04/09/2007 Outpatient Historical [facility] Internal Medicine [address] [address] Smith Islas MD [address] [place] [address] Social History Tobacco Use Types Packs/Day Years Used Date Smoking Tobacco: Never Assessed Comments Unknown Sex and Gender Information Value Date Recorded Sex Assigned at Not on file Legal Sex Female 3:30 AM CEREAL POPPER Gender Identity Not on file Sexual Orientation [...] Body Mass Index 34.95 10/14/2003 10:30 AM CEREAL POPPER documented in this encounter Plan of Treatment Not on file documented as of this encounter Visit Diagnoses Not on filedocumented in this encounter Care Teams Display Fabricator Relationship Specialty Start Date End Date Smith Islas MD [address] [place] [phone] PCP - General 10/22/03 07/11/15 documented as of this encounter
--- OUTSIDE RECORDS SUMMARY | 2025-01-20 23:20 | XMS_ITS | Encounter Summary ---
Author Organization [facility] Address [address] [place] [address] Care Team Providers Care Instructional Support Specialist Name Role Phone Smith Islas MD Primary Care Provider [phone] Encounter Details Date Type Department Care Team (Latest Contact Info) Description 08/07/2005 Outpatient Historical [facility] Davonte Bermudez MD [address] [facility] [address] [place] [address] SPRAIN LUMBAR REGION (Primary Dx) Social History Tobacco Use Types Packs/Day Years Used Date Smoking Tobacco: Never Assessed Comments Unknown Sex and Gender Information Value Date Recorded Sex Assigned at Not on file Legal Sex Female 3:30 AM MAIL ROOM Gender Identity Not on file Sexual Orientation Not on file documented as of this encounter Plan of Treatment Not on file documented as of this encounter Visit Diagnoses Diagnosis Sprain of lumbar region- Primary documented in this encounter Care Teams Instructional Support Specialist Relationship Specialty Start Date End Date Smith Islas MD [address] [place] [address] [address] [place] [address] PCP - General 10/22/03 07/11/15 documented as of this encounter
--- OUTSIDE RECORDS SUMMARY | 2025-01-20 23:20 | XMS_ITS | Encounter Summary ---
Author Organization [facility] Address [address] [place] [address] Care Team Providers Care Hog Room Supervisor Name Role Phone Smith Islas MD Primary Care Provider [phone] Encounter Details Date Type Department Care Team (Late st Contact Info) Description 11/21/2005 Orders Only [facility] Internal Medicine [address] [address] Smith Islas MD [address] [place] [address] Social History Tobacco Use Types Packs/Day Years Used Date Smoking Tobacco: Never Assessed Comments Unknown Sex and Gender Information Value Date Recorded Sex Assigned at Not on file Legal Sex Female 3:30 AM ASSOCIATE RELATIONS SPECIALIST Gender Identity Not on file Sexual [...] on filedocumented in this encounter Care Teams Hog Room Supervisor Relationship Specialty Start Date End Date Smith Islas MD [address] [place] [phone] PCP - General 10/22/03 07/11/15 documented as of this encounter
--- OUTSIDE RECORDS SUMMARY | 2025-01-20 23:20 | XMS_ITS | Encounter Summary ---
Author Organization [facility] Address [address] [place] [address] Care Team Providers Care Pediatric Immunologist Name Role Phone Smith Islas MD Primary Care Provider [phone] Encounter Details Date Type Department Care Team (Late st Contact Info) Description 06/06/2005 Outpatient Historical [facility] Internal Medicine [address] [address] Smith Islas MD [address] [place] [address] Social History Tobacco Use Types Packs/Day Years Used Date Smoking Tobacco: Never Assessed Comments Unknown Sex and Gender Information Value Date Recorded Sex Assigned at Not on file Legal Sex Female 3:30 AM DRAIN CLEANER PLUMBER Gender Identity Not on file Sexual Orientation Not on file documented as of this encounter Plan of Treatment Not on file documented as of this encounter Visit Diagnoses Not on filedocumented in this encounter Care Teams Pediatric Immunologist Relationship Specialty Start Date End Date Smith Islas MD [address] [place] [address] [address] [place] [address] PCP - General 10/22/03 07/11/15 documented as of this encounter
--- OUTSIDE RECORDS SUMMARY | 2025-01-20 23:20 | XMS_ITS | Encounter Summary ---
Author Organization [facility] Address [address] [place] [address] Care Team Providers Care Brick Machine Operator Name Role Phone Smith Islas MD Primary Care Provider [phone] Encounter Details Date Type Department Care Team (Late st Contact Info) Description 09/11/2006 Outpatient Historical [facility] Internal Medicine [address] [address] Smith Islas MD [address] [place] [address] Social History Tobacco Use Types Packs/Day Years Used Date Smoking Tobacco: Never Assessed Comments Unknown Sex and Gender Information Value Date Recorded Sex Assigned at Not on file Legal Sex Female 3:30 AM HYDROELECTRIC MACHINERY MECHANIC HELPER Gender Identity Not on file Sexual Orientation Not on file documented as of this encounter Last Filed Vital Signs Vital Sign Reading Time Taken Comments Blood Pressure 130/80 09/11/2006 10:15 AM HYDROELECTRIC MACHINERY MECHANIC HELPER Pulse - - Temperature 36.8 C (98.3 F) 09/11/2006 10:15 AM HYDROELECTRIC MACHINERY MECHANIC HELPER Respiratory Rate - - Oxygen Saturation - - Inhaled Oxygen Concentration - - Weight 98.9 kg (218 lb) 09/11/2006 10:15 AM HYDROELECTRIC MACHINERY MECHANIC HELPER Height - - Body Mass Index 36.28 10/14/2003 10:30 AM HYDROELECTRIC MACHINERY MECHANIC HELPER documented in this encounter Plan of Treatment Not on file documented as of this encounter Visit Diagnoses Not on filedocumented in this encounter Care Teams Brick Machine Operator Relationship Specialty Start Date End Date Smith Islas MD [address] [place] [phone] PCP - General 10/22/03 07/11/15 documented as of this encounter
--- OUTSIDE RECORDS SUMMARY | 2025-01-20 23:20 | XMS_ITS | Encounter Summary ---
Author Organization [facility] Address [address] [place] [address] Care Team Providers Care Assurance Analyst Name Role Phone Smith Islas MD Primary Care Provider [phone] Encounter Details Date Type Department Care Team (Latest Contact Info) Description 06/24/2008 Outpatient Historical [facility] Smith Islas MD [address] [facility] [address] [place] [address] DM w/o Complication Type II (CMS/HCC) Social History Tobacco Use Types Packs/Day Years Used Date Smoking Tobacco: Former Alcohol Use Standard Drinks/Week Comments No 0 (1 standard drink = 0.6 oz pur e alcohol) Comments No Sex and Gender Information Value Date Recorded Sex Assigned at Not on file Legal Sex Female 3:30 AM ROLL HAND Gender Identity Not on file Sexual Orientation Not on file documented as of this encounter Plan of Treatment Not on file documented as of this encounter Visit Diagnoses Diagnosis Type II or unspecified type diabetes mellitus without mention of complication, not stated as uncontrolled documented in this encounter Care Teams Assurance Analyst Relationship Specialty Start Date End Date Smith Islas MD [address] [facility] [address] [place] [address] PCP - General 10/22/03 07/11/15 documented as of this encounter
--- OUTSIDE RECORDS SUMMARY | 2025-01-20 23:20 | XMS_ITS | Encounter Summary ---
Author Organization [facility] Address [address] [place] [address] Care Team Providers Care Supervisor Picking Crew Name Role Phone Smith Islas MD Primary Care Provider [phone] Encounter Details Date Type Department Care Team (Late st Contact Info) Description 06/01/2006 Orders Only [facility] Internal Medicine [address] [address] Smith Islas MD [address] [place] [address] Social History Tobacco Use Types Packs/Day Years Used Date Smoking Tobacco: Never Assessed Comments Unknown Sex and Gender Information Value Date Recorded Sex Assigned at Not on file Legal Sex Female 3:30 AM POPPED CORN 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 LAB ORDERS: 3 mo Order number: [id number] Test Ordered: COMPREHENSIVE METABOLIC PANEL W/ GLOMERULAR FILTRATION RATE, ESTIMATED (EGFR) 74717 Order number: [id number] Test Ordered: LIPID PANEL 7600 Order number: [id number] Test Ordered: MICROALBUMIN/CREATININE RATIO, RANDOM URINE 6517 Order number: [id number] Test Ordered: TSH 899 Order number: [id number] Test Ordered: HEMOGLOBIN A1c 496 272.4-HYPERLIPIDEMIA try [...] filedocumented in this encounter Care Teams Supervisor Picking Crew Relationship Specialty Start Date End Date Smith Islas MD [address] [place] [phone] PCP - General 10/22/03 07/11/15 documented as of this encounter
--- OUTSIDE RECORDS SUMMARY | 2025-01-20 23:20 | XMS_ITS | Encounter Summary ---
Author Organization [facility] Address [address] [place] [address] Care Team Providers Care Skein Yarn Drier Name Role Phone Smith Islas MD Primary Care Provider [phone] Encounter Details Date Type Department Care Team (Late st Contact Info) Description 03/01/2007 Outpatient Historical [facility] Internal Medicine [address] [address] Smith Islas MD [address] [place] [address] Social History Tobacco Use Types Packs/Day Years Used Date Smoking Tobacco: Never Assessed Comments Unknown Sex and Gender Information Value Date Recorded Sex Assigned at Not on file Legal Sex Female 3:30 AM NUT FEEDER Gender Identity Not on file Sexual Orientation [...] Body Mass Index 35.45 10/14/2003 10:30 AM NUT FEEDER documented in this encounter Plan of Treatment Not on file documented as of this encounter Visit Diagnoses Not on filedocumented in this encounter Care Teams Skein Yarn Drier Relationship Specialty Start Date End Date Smith Islas MD [address] [place] [phone] PCP - General 10/22/03 07/11/15 documented as of this encounter
--- OUTSIDE RECORDS SUMMARY | 2025-01-20 23:20 | XMS_ITS | Encounter Summary ---
Author Organization [facility] Address [address] [place] [address] Care Team Providers Care Sr. 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 Director Relationship Specialty Start Date End Date Smith Islas MD [address] [place] [phone] PCP - General 10/22/03 07/11/15 documented as of this encounter
--- OUTSIDE RECORDS SUMMARY | 2025-01-20 23:20 | XMS_ITS | Encounter Summary ---
Author Organization [facility] Address [address] [place] [address] Care Team Providers Care Measurement And Sensing Technician Name Role Phone Smith Islas MD Primary Care Provider [phone] Encounter Details Date Type Department Care Team (Late st Contact Info) Description 07/18/2005 Outpatient Historical [facility] Internal Medicine [address] [address] Smith Islas MD [address] [place] [address] Social History Tobacco Use Types Packs/Day Years Used Date Smoking Tobacco: Never Assessed Comments Unknown Sex and Gender Information Value Date Recorded Sex Assigned at Not on file Legal Sex Female 3:30 AM LITIGATION SUPPORT ANALYST Gender Identity Not on file Sexual [...] Body Mass Index 36.94 10/14/2003 10:30 AM LITIGATION SUPPORT ANALYST documented in this encounter Plan of Treatment Not on file documented as of this encounter Visit Diagnoses Not on filedocumented in this encounter Care Teams Measurement And Sensing Technician Relationship Specialty Start Date End Date Smith Islas MD [address] [place] [phone] PCP - General 10/22/03 07/11/15 documented as of this encounter
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
--- OUTSIDE RECORDS SUMMARY | 2025-01-20 23:20 | XMS_ITS | Encounter Summary ---
Author Organization [facility] Address [address] [place] [address] Care Team Providers Care Library Media Technician Name Role Phone Smith Islas MD Primary Care Provider [phone] Encounter Details Date Type Department Care Team (Late st Contact Info) Description 10/24/2005 Orders Only [facility] Internal Medicine [address] [address] Smith Islas MD [address] [place] [address] Social History Tobacco Use Types Packs/Day Years Used Date Smoking Tobacco: Never Assessed Comments Unknown Sex and Gender Information Value Date Recorded Sex Assigned at Not on file Legal Sex Female 3:30 AM AB INITIO 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
--- OUTSIDE RECORDS SUMMARY | 2025-01-20 23:20 | XMS_ITS | Encounter Summary ---
Author Organization [facility] Address [address] [place] [address] Care Team Providers Care Synthetic Filament Extruder Name Role Phone Smith Islas MD Primary Care Provider Encounter Details Date Type Department Care Team (Late st Contact Info) Description 10/10/2006 Outpatient Historical [facility] Internal Medicine [address] [address] Smith Islas MD [address] [place] [phone] Social History Tobacco Use Types Packs/Day Years Used Date Smoking Tobacco: Never Assessed Comments Unknown Sex and Gender Information Value Date Recorded Sex Assigned at Not on file Legal Sex Female 3:30 AM CLOTHING WORKER Gender Identity Not on file Sexual Orientation Not on file documented as of this encounter Last Filed Vital Signs Vital Sign Reading Time Taken Comments Blood Pressure 124/80 10/10/2006 11:00 AM CLOTHING WORKER Pulse - - Temperature 36.5 C (97.7 F) 10/10/2006 11:00 AM CLOTHING WORKER Respiratory Rate - - Oxygen Saturation - - Inhaled Oxygen Concentration - - Weight 98.9 kg (218 lb) 10/10/2006 11:00 AM CLOTHING WORKER Height - - Body Mass Index 36.28 10/14/2003 10:30 AM CLOTHING WORKER documented in this encounter Plan of Treatment Not on file documented as of this encounter Visit Diagnoses Not on filedocumented in this encounter Care Teams Synthetic Filament Extruder Relationship Specialty Start Date End Date Smith Islas MD [address] [place] [phone] PCP - General 10/22/03 07/11/15 documented as of this encounter
--- OUTSIDE RECORDS SUMMARY | 2025-01-20 23:20 | XMS_ITS | Encounter Summary ---
Author Organization [facility] Address 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
--- OUTSIDE RECORDS SUMMARY | 2025-01-20 23:20 | XMS_ITS | Encounter Summary ---
Author Organization [facility] Address 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
--- OUTSIDE RECORDS SUMMARY | 2025-01-20 23:20 | XMS_ITS | Encounter Summary ---
Author Organization [facility] Address [address] [place] [address] Care Team Providers Care Salary And Wage Administrator Name Role Phone Smith Islas MD Primary Care Provider [phone] Encounter Details Date Type Department Care Team (Late st Contact Info) Description 08/04/2005 Outpatient Historical [facility] Internal Medicine [address] [address] Smith Islsa MD [address] [place] [phone] Social History Tobacco Use Types Packs/Day Years Used Date Smoking Tobacco: Never Assessed Comments Unknown Sex and Gender Information Value Date Recorded Sex Assigned at Not on file Legal Sex Female 3:30 AM EQUITY MANAGER Gender Identity Not on file Sexual Orientation Not on file documented as of this encounter Last Filed Vital Signs Vital Sign Reading Time Taken Comments Blood Pressure 120/80 08/04/2005 9:45 AM EQUITY MANAGER Pulse - - Temperature - - Respiratory Rate - - Oxygen Saturation - - Inhaled Oxygen Concentration - - Weight 102.5 kg (226 lb) 08/04/2005 9:45 AM EQUITY MANAGER Height - - Body Mass Index 37.61 10/14/2003 10:30 AM EQUITY MANAGER documented in this encounter Plan of Treatment Not on file documented as of this encounter Visit Diagnoses Not on filedocumented in this encounter Care Teams Salary And Wage Administrator Relationship Specialty Start Date End Date Smith Islas MD [address] [place] [phone] PCP - General 10/22/03 07/11/15 documented as of this encounter
--- OUTSIDE RECORDS SUMMARY | 2025-01-20 23:20 | XMS_ITS | Encounter Summary ---
Author Organization [facility] Address [address] [place] [address] Care Team Providers Care Offset Platemaker Name Role Phone Becka Escobedo MD Primary Care Provider [phone] Encounter Details Date Type Department Care Team (Late st Contact Info) Description 03/01/2007 Orders Only [facility] Internal Medicine [address] [address] Becka Escobedo MD [address] [place] [phone] Social History Tobacco Use Types Packs/Day Years Used Date Smoking Tobacco: Never Assessed Comments Unknown Sex and Gender Information Value Date Recorded Sex Assigned at Not on file Legal Sex Female 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 [address] D.O.B: 1945 SSN: [id number] Parent/Guardian if applicable: Patient Insurance: [employer] ID#: [id number] Group#: ORDER(S) #: [id number] mamm PLEASE SCHEDULE THE APPOINTMENT AT THE FOLLOWING LOCATION: [facility] [phone]. SPECIAL SCHEDULING INSTRUCTIONS: pt to scheduled ORDERING PHYSICIAN: BECKA ESCOBEDO MD OFFICE OUTDOOR LANDSCAPE ARCHITECT & PHONE: Rossi Herrera E * Becka [...] no significant smoking history. 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 LAB ORDERS: 3mo Order number: [id number] Test Ordered: COMPREHENSIVE METABOLIC PANEL & GFR 1112 Order number: [id number] Test Ordered: HEMOGLOBIN A1C 1814 Order number: [id number] Test Ordered: LIPID PANEL 1078 Order number: [id number] Test Ordered: TSH 1720 272.4-HYPERLIPIDEMIA discussed, cont med--try take daily 311-DEPRESSION discussed, cont med--reassess RETURN VISIT : Patient instructed to return in 3 months. Electronically Signed by: Becka Escobedo MD on Thursday, March 01, 2007 documented in this encounter Plan of Treatment Not on file documented as of this encounter Visit Diagnoses Not on filedocumented in this encounter Care Teams Offset Platemaker Relationship Specialty Start Date End Date Becka Escobedo MD [address] [place] [phone] PCP - General 10/22/03 07/11/15 documented as of this encounter
--- OUTSIDE RECORDS SUMMARY | 2025-01-20 23:20 | XMS_ITS | Encounter Summary ---
Author Organization [facility] Address [address] [place] [address] Care Team Providers Care Bulldozer Mechanic Name Role Phone Smith Islas MD Primary Care Provider [phone] Encounter Details Date Type Department Care Team (Late st Contact Info) Description 11/03/2005 Outpatient [facility] Internal Medicine [address] [address] Smith Islas MD [address] [place] [phone] Social History Tobacco Use Types Packs/Day Years Used Date Smoking Tobacco: Never Assessed Comments Unknown Sex and Gender Information Value Date Recorded Sex Assigned at Not on file Legal Sex Female 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
--- OUTSIDE RECORDS SUMMARY | 2025-01-20 23:20 | XMS_ITS | Encounter Summary ---
Author Organization [facility] Address [address] [place] [address] Care Team Providers Care Break Out Man Name Role Phone Smith Islas MD Primary Care Provider [phone] Encounter Details Date Type Department Care Team (Late st Contact Info) Description 03/24/2005 Outpatient Historical [facility] Internal Medicine [address] [address] Smith Islas MD [address] [place] [phone] Social History Tobacco Use Types Packs/Day Years Used Date Smoking Tobacco: Never Assessed Comments Unknown Sex and Gender Information Value Date Recorded Sex Assigned at Not on file Legal Sex Female 3:30 AM HARPOONER Gender Identity Not on file Sexual Orientation [...] Body Mass Index 36.28 10/14/2003 10:30 AM HARPOONER documented in this encounter Plan of Treatment Not on file documented as of this encounter Visit Diagnoses Not on filedocumented in this encounter Care Teams Break Out Man Relationship Specialty Start Date End Date Smith Islas MD [address] [place] [phone] PCP - General 10/22/03 07/11/15 documented as of this encounter
--- OUTSIDE RECORDS SUMMARY | 2025-01-20 23:20 | XMS_ITS | Encounter Summary ---
Author Organization [facility] Address 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), Unspecified Site (CMS/HCC) Social History Tobacco Use Types Packs/Day Years Used Date Smoking Tobacco: Former Cigarettes Q uit: 06/26/1988 Alcohol Use Standard Drinks/Week Comments No 0 (1 standard drink = 0.6 oz pur e alcohol) Comments No Sex and Gender Information Value Date Recorded Sex Assigned at Not on file Legal Sex Female 3:30 AM DAIRY TECHNICIAN Gender Identity Not on file Sexual [...] AM CDT Narrative 01/12/2009 4:33 PM CDT [address] [address] Admit Date: 01/12/2009 [facility] J Sex: F Admit Prov: BECKA ESCOBEDO Date: 1945 Primary Care Prov: BECKA ESCOBEDO CMRN: [id number] Room: [facility] SSN: [address] [place] [address] IMAGING SERVICES Ordering Prov: BECKA ESCOBEDO Accession Number: [id number] Interpretation Exam: Left unilateral full field digital [...] AMK Procedure Note Yue Hensley - 01/12/2009 [facility] [address] [place], [place] [address] Admit Date: 01/12/2009 MORRIS STOKES Sex: F Admit Prov: BECKA ESCOBEDO Date: 1945 Primary Care Prov: BECKA ESCOBEDO CMRN: [id number] Room: Kris SSN: [id number] IMAGING SERVICES Ordering Prov: BECKA ESCOBEDO Interpretation [...] site documented in this encounter Care Teams Banquet Waiter/Waitress Relationship Specialty Start Date End Date Becka Escobedo MD [address] [place] [phone] PCP - General 10/22/03 07/11/15 documented as of this encounter
--- OUTSIDE RECORDS SUMMARY | 2025-01-20 23:20 | XMS_ITS | Encounter Summary ---
Author Organization [facility] Address 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) Social History Tobacco Use Types Packs/Day Years Used Date Smoking Tobacco: Never Assessed Comments Unknown Sex and Gender Information Value Date Recorded Sex Assigned at Not on file Legal Sex Female 3:30 AM PLEXIGLAS FORMER Gender Identity Not on file Sexual Orientation [...] MD CHEMISTRY ORDERABLES Edited Performing Organization Address [facility] Phone Number INTERFACE SYSTEM [...] classifications for lipids are available on the [facility] Intranet at: [email or web address] Select: Lab Policies and Procedures Select: Reference Ranges - Lipids 02/26/2007 8:45 AM CDT Smith Islas MD CHEMISTRY ORDERABLES Edited Performing Organization Address [facility] Phone Number INTERFACE SYSTEM Refer to clinic/hospital department * (ABNORMAL) HEMOGLOBIN A1C (02/26/2007 8:45 AM CDT) HEMOGLOBIN A1C 6.7(H) 4.1 - 6.1 % of Hgb INTERFACE SYSTEM GLUCOSE, MEAN BLOOD 161 mg/dL INTERFACE SYSTEM 02/26/2007 8:45 AM CDT Smith Islas MD CHEMISTRY ORDERABLES Edited Performing Organization Address [facility] Phone Number INTERFACE SYSTEM [...] and non- Americans is available on the [facility] Intranet at: [email or web address] Select: Lab Policies and Procedures Select: Reference Ranges - GFR 02/26/2007 8:45 AM CDT us Smith Islas MD CHEMISTRY ORDERABLES Edited INTERFACE SYSTEM Refer to clinic/hospital department documented in this encounter Visit Diagnoses Diagnosis Type II or unspecified type diabetes mellitus without mention of complication, not stated as uncontrolled- Primary documented in this encounter Care Teams Drawer In Plain Loom Relationship Specialty Start Date End Date Smith Islas MD [address] [place] [phone] PCP - General 10/22/03 07/11/15 documented as of this encounter
--- OUTSIDE RECORDS SUMMARY | 2025-01-20 23:20 | XMS_ITS | Encounter Summary ---
Author Organization [employer] Address [address] [place] [address] Care Team Providers Care Chemical Process Analyst Name Role Phone Smith Islas MD Primary Care Provider [phone] Encounter Details Date Type Department Care Team (Late st Contact Info) Description 10/27/2008 Outpatient Historical [facility], Authorized P NO ADDRESS ON FILE Antione Orta MD [address] [place] [address] Abdominal Pain, Unspecified Site; Other [...] on file Legal Sex Female 3:30 AM BUILDING ARCHITECT Gender Identity Not on file Sexual Orientation Not on file documented as of this encounter Plan of Treatment Not on file documented as of this encounter Procedures Procedure Name Priority Date/Time Associated Diagnosis Comments LIPASE Stat 10/27/2008 7:19 AM BUILDING ARCHITECT AMYLASE Stat 10/27/2008 7:19 AM BUILDING ARCHITECT CBC WITH DIFFERENTIAL Stat 10/27/2008 6:21 AM BUILDING ARCHITECT COMPREHENSIVE METABOLIC PANEL Stat 10/27/2008 5:35 AM BUILDING ARCHITECT POC URINALYSIS DIPSTICK NON AUTOMATED Routine 10/27/2008 5:25 AM BUILDING ARCHITECT documented in this encounter Results * AMYLASE (10/27/2008 7:19 AM BUILDING ARCHITECT) [facility] AMYLASE 30 28 - 100 U/L [facility] Blood specimen (specimen) 10/27/2008 7:19 AM BUILDING ARCHITECT 10/27/2008 7:19 AM BUILDING ARCHITECT us Antione Orta MD CHEMISTRY ORDERABLES Final Resul t Performing Organization Address [facility] de Phone Number INTERFACE SYSTEM Refer to clinic/hospital department [facility] CLIA# [id number] [address] [place] [address] * LIPASE (10/27/2008 7:19 AM BUILDING ARCHITECT) [facility] LIPASE 33 13 - 60 U/L [facility] Blood specimen (specimen) 10/27/2008 7:19 AM BUILDING ARCHITECT 10/27/2008 7:19 AM BUILDING ARCHITECT Narrative INTERFACE SYSTEM - 10/27/2008 7:32 AM BUILDING ARCHITECT blood in lab [facility] us Antione Orta MD CHEMISTRY ORDERABLES Final Resul t Performing Organization Address [facility] de Phone Number INTERFACE SYSTEM Refer to clinic/hospital department [facility] CLIA# [id number] [address] [place] [address] * (ABNORMAL) CBC WITH DIFFERENTIAL (10/27/2008 6:21 AM BUILDING ARCHITECT) [facility] MCHC 33.2 31.5 - 35.5 % [facility] MCV 81.5(L) 82.0 - 99.0 fL [facility] PLATELETS 206 140 - 350 K/uL [facility] HEMOGLOBIN 14.8 11.8 - 14.8 g/dL [facility] RDW 13.9 11.5 - 14.5 % [facility] WBC 7.3 4.0 - 9.8 K/uL [facility] MCH 27.1(L) 27.2 - 32.6 pg [facility] MPV 10.7 9.3 - 12.4 fL [facility] HEMATOCRIT 44.6(H) 35.5 - 44.0 % [facility] RDW-STDEV 41.2 37.1 - 48.7 fL [facility] RBC 5.47(H) 3.90 - 4.90 M/uL [facility] LYMPHOCYTES 19 16 - 45 % [facility] LYMPHOCYTE ABSOLUTE 1.42 0.70 - 4.50 K/uL [facility] BASOPHILS 1 0 - 2 % [facility] BASOPHILS ABSOLUTE 0.07 0.00 - 0.20 K/uL [facility] MONOCYTES 9 3 - 13 % [facility] MONOCYTE ABSOLUTE 0.65 0.10 - 1.30 K/uL [facility] NEUTROPHILS 69 45 - 70 % [facility] NEUTROPHIL ABSOLUTE 5.08 1.90 - 7.00 K/uL [facility] EOSINOPHILS 2 0 - 7 % [facility] EOSINOPHIL ABSOLUTE 0.12 0.00 - 0.70 K/uL [facility] Blood specimen (specimen) 10/27/2008 6:21 AM BUILDING ARCHITECT 10/27/2008 6:21 AM BUILDING ARCHITECT Narrative INTERFACE SYSTEM - 10/27/2008 7:03 AM BUILDING ARCHITECT redraw of [phone] us Authorized P Er HEMATOLOGY ORDERABLES Edited INTERFACE SYSTEM Refer to clinic/hospital department [facility] CLIA# [id number] [address] [place] [address] * (ABNORMAL) COMPREHENSIVE METABOLIC PANEL (10/27/2008 5:35 AM BUILDING ARCHITECT) BILIRUBIN TOTAL 0.5 0.2 - 1.0 mg/dL [facility] CHLORIDE 104 96 - 108 mmol/L [facility] TOTAL PROTEIN 7.7 6.3 - 8.6 g/dL [facility] GLUCOSE 140(H) 65 - 99 mg/dL [facility] AST 34(H) 12 - 32 U/L [facility] Comment: Hemolyzed: Result may be falsely elevated. BUN 20 6 - 20 mg/dL [facility] CALCIUM 9.7 8.6 - 10.2 mg/dL [facility] ALBUMIN 4.4 3.4 - 4.8 g/dL [facility] POTASSIUM See note. 3.5 - 4.9 mmol/L [facility] Comment: Gross hemolysis present. Result unreliable. CO2 21(L) 22 - 30 mmol/L [facility] CREATININE 0.65 0.51 - 0.95 mg/dL [facility] ALT 22 0 - 31 U/L [facility] Comment: Hemolyzed: Result may be falsely elevated. SODIUM 137 135 - 145 mmol/L [facility] ALKALINE PHOSPHATASE 91 35 - 104 U/L [facility] GFR, >60 >=60 mL/min/1. 7 sq meter [facility] GFR >60 >=60 mL/min/1. 7 sq meter [facility] Comment: Modification of Diet in Renal Disease (MDRD) study formula. Estimated GFR rate interpretative information for both Americans and non- Americans is available on the [facility] Intranet at: [email or web address] Select: Lab Policies and Procedures Select: Reference Ranges - GFR Blood specimen (specimen) 10/27/2008 5:35 AM BUILDING ARCHITECT 10/27/2008 5:45 AM BUILDING ARCHITECT us Antione Orta MD CHEMISTRY ORDERABLES Edited Performing Organization Address [facility] Phone Number INTERFACE SYSTEM Refer to clinic/hospital department [facility] CLIA# [id number] [address] [place] [address] * POC URINALYSIS DIPSTICK NON AUTOMATED (10/27/2008 5:25 AM BUILDING ARCHITECT) BILIRUBIN UA Negative Negative [facility] PH UA 6.0 5.0 - 8.0 [facility] KETONES UA Negative Negative [facility] CLARITY UA Clear [facility] BLOOD UA Negative Negative [facility] PROTEIN UA Negative Negative [facility] LEUKOCYTE ESTERASE UA Negative Negative [facility] UROBILINOGEN UA 1+ (1 mg/dL) <=1 mg/dL S [facility] SPECIFIC GRAVITY UA 1.030 1.001 - 1.030 [facility] GLUCOSE UA Negative Negative [facility] COLOR UA Yellow [facility] NITRITE UA Negative Negative [facility] Urine specimen (specimen) 10/27/2008 5:25 AM BUILDING ARCHITECT 10/27/2008 5:25 AM BUILDING ARCHITECT us Authorized P Er POINT OF CARE TESTING Final Resu lt Performing Organization Address [facility] de Phone Number INTERFACE SYSTEM Refer to clinic/hospital department [facility] CLIA# [id number] [address] [place] [address] documented in this encounter Visit Diagnoses Diagnosis [...] medications documented in this encounter Care Teams Chemical Process Analyst Relationship Specialty Start Date End Date Smith Islas MD [address] [place] [phone] PCP - General 10/22/03 07/11/15 documented as of this encounter
--- OUTSIDE RECORDS SUMMARY | 2025-01-20 23:20 | XMS_ITS | Encounter Summary ---
Author Organization [facility] Address [address] [place] [address] Care Team Providers Care Landscape Foreman Name Role Phone Smith Islas MD Primary Care Provider [phone] Encounter Details Date Type Department Care Team (Late st Contact Info) Description 03/02/2006 Outpatient Historical [facility] Internal Medicine [address] [address] Smith Islas MD [address] [place] [address] Social History Tobacco Use Types Packs/Day Years Used Date Smoking Tobacco: Never Assessed Comments Unknown Sex and Gender Information Value Date Recorded Sex Assigned at Not on file Legal Sex Female 3:30 AM SERVICE DESK AGENT Gender Identity Not on file Sexual Orientation [...] Body Mass Index 37.61 10/14/2003 10:30 AM SERVICE DESK AGENT documented in this encounter Plan of Treatment Not on file documented as of this encounter Visit Diagnoses Not on filedocumented in this encounter Care Teams Landscape Foreman Relationship Specialty Start Date End Date Smith Islas MD [address] [place] [phone] PCP - General 10/22/03 07/11/15 documented as of this encounter
--- OUTSIDE RECORDS SUMMARY | 2025-01-20 23:21 | XMS_ITS | Encounter Summary ---
Author Organization [facility] Address [address] [place] [address] Care Team Providers Care Vocational Technical Education Teacher Name Role Phone Smith Islas MD Primary Care Provider [phone] Encounter Details Date Type Department Care Team (Latest Contact Info) Description 02/25/2008 Outpatient Historical [facility] Smith Islas MD [address] [place] [phone] Unspecified Backache; Degeneration of Lumbar or Lumbosacral Intervertebral Disc; Arthrodesis Status Social History Tobacco Use Types Packs/Day Years Used Date Smoking Tobacco: Former Alcohol Use Standard Drinks/Week Comments No 0 (1 standard drink = 0.6 oz pur e alcohol) Comments No Sex and Gender Information Value Date Recorded Sex Assigned at Not on file Legal Sex Female 3:30 AM MONORAIL CHARGER OPERATOR Gender Identity Not on file Sexual Orientation Not on file documented as of this encounter Plan of Treatment Not on file documented as of this encounter Visit Diagnoses Diagnosis Backache, unspecified Degeneration of lumbar or lumbosacral intervertebral disc Arthrodesis status documented in this encounter Care Teams Vocational Technical Education Teacher Relationship Specialty Start Date End Date Smith Islas MD [address] [place] [address] [address] [place] [address] PCP - General 10/22/03 07/11/15 documented as of this encounter
--- OUTSIDE RECORDS SUMMARY | 2025-01-20 23:21 | XMS_ITS | Encounter Summary ---
Author Organization [facility] Address [address] [place] [address] Care Team Providers Care Dog Raiser Name Role Phone Becka Escobedo MD Primary Care Provider [phone] Encounter Details Date Type Department Care Team (Late st Contact Info) Description 06/19/2007 Orders Only [facility] Internal Medicine [address] [address] Becka Escobedo MD [address] [place] [phone] Social History Tobacco Use Types Packs/Day Years Used Date Smoking Tobacco: Never Assessed Comments Unknown Sex and Gender Information Value Date Recorded Sex Assigned at Not on file Legal Sex Female 3:30 AM CAPTAIN/AIRLINE PILOT Gender Identity Not on file Sexual Orientation Not on file documented as of this encounter Progress Notes * Becka Escobedo MD - 02/07/2008 6:39 PM CDT CENTRAL TEST SCHEDULING DATE: JUN 19, 2007 Note created by: Mary Hagen R 12:22 p Patient Name : MORRIS STOKES Address: [address] [address] D.O.B: 1945 SSN: [id number] Parent/Guardian if applicable: Patient Insurance: [employer] ID#: [id number] Group#: ORDER(S) #: [id number] NCV/EMG yoan upper and lower extremity BEST TO CALL CELL. [phone] or home BEST TIME TO CALL: ANYTIME. MAY WE LEAVE MESSAGE AT THAT NUMBER: YES, LEAVE MESSAGE. PLEASE SCHEDULE THE APPOINTMENT AT THE FOLLOWING LOCATION: TEST SCHEDULE [facility]. TEST PRIORITY: 2 - 7 DAYS. as soon as you can ORDERING PHYSICIAN: BECKA ESCOBEDO MD OFFICE PAVING BLOCK CUTTER & PHONE: Mary Hagen R ORDER PRINTED [...] 06/19/2007. risks explained LAB ORDERS: Order number: [id number] Test Ordered: NCV/EMG UPPER EXTREMITY RIGHT Order number: [id number] Test Ordered: NCV/EMG LOWER EXTREMITY RIGHT Order number: [id number] Test Ordered: NCV/EMG UPPER EXTREMITY LEFT Order number: [id number] Test Ordered: NCV/EMG LOWER EXTREMITY LEFT Patient [...] on filedocumented in this encounter Care Teams Dog Raiser Relationship Specialty Start Date End Date Becka Escobedo MD [address] [place] [phone] PCP - General 10/22/03 07/11/15 documented as of this encounter
--- OUTSIDE RECORDS SUMMARY | 2025-01-20 23:21 | XMS_ITS | Encounter Summary ---
Author Organization [facility] Address 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) Social History Tobacco Use Types Packs/Day Years Used Date Smoking Tobacco: Never Assessed Comments Unknown Sex and Gender Information Value Date Recorded Sex Assigned at Not on file Legal Sex Female 3:30 AM PLASTERER JOURNEYMAN Gender Identity Not on file Sexual Orientation [...] MD CHEMISTRY ORDERABLES Edited Performing Organization Address City/[facility]/ZIP Co de Phone Number INTERFACE SYSTEM Refer to clinic/hospital department * TSH (05/29/2007 8:22 AM CDT) TSH 3.21 0.27 - 4.20 uU/mL INTERFACE SYSTEM 05/29/2007 8:22 AM CDT Smith Islas MD CHEMISTRY ORDERABLES Edited Performing Organization Address [facility] de Phone Number INTERFACE SYSTEM Refer [...] available on the [facility] Intranet at: [email or web address] Select: Lab Policies and Procedures Select: Reference Ranges - GFR 05/29/2007 8:22 AM CDT Smith Islas MD CHEMISTRY ORDERABLES Edited Performing Organization Address [facility] de Phone Number INTERFACE SYSTEM Refer [...] available on the [facility] Intranet at: [email or web address] Select: Lab Policies and Procedures,Current Select: Lipid Panel Interpretation 05/29/2007 8:22 AM CDT Result [facility] Smith Islas MD CHEMISTRY ORDERABLES Edited Performing Organization Address [facility] de Phone Number INTERFACE SYSTEM Refer to clinic/hospital department documented in this encounter Visit Diagnoses Diagnosis Type II or unspecified type diabetes mellitus without mention of complication, not stated as uncontrolled- Primary documented in this encounter Care Teams Reversing Mill Roller Relationship Specialty Start Date End Date Smith Islas MD [address] [place] [phone] PCP - General 10/22/03 07/11/15 documented as of this encounter
--- OUTSIDE RECORDS SUMMARY | 2025-01-20 23:21 | XMS_ITS | Encounter Summary ---
Author Organization [facility] Address [address] [place] [address] Care Team Providers Care Air Traffic Systems Technician Name Role Phone Smith Islas MD Primary Care Provider [phone] Encounter Details Date Type Department Care Team (Late st Contact Info) Description 12/17/2007 Orders Only [facility] Internal Medicine [address] [address] Smith Islas MD [address] [place] [phone] Social History Tobacco Use Types Packs/Day Years Used Date Smoking Tobacco: Never Assessed Comments Unknown Sex and Gender Information Value Date Recorded Sex Assigned at Not on file Legal Sex Female 3:30 AM TAX COLLECTOR Gender Identity Not on file Sexual Orientation Not on file documented as of this encounter Plan of Treatment Not on file documented as of this encounter Visit Diagnoses Not on filedocumented in this encounter Care Teams Air Traffic Systems Technician Relationship Specialty Start Date End Date Smith Islas MD [address] [place] [address] [address] [place] [address] PCP - General 10/22/03 07/11/15 documented as of this encounter
--- OUTSIDE RECORDS SUMMARY | 2025-01-20 23:21 | XMS_ITS | Encounter Summary ---
Author Organization [facility] Address [address] [place] [address] Care Team Providers Care K 12 School Professional Name Role Phone Smith Islas MD Primary Care Provider [phone] Encounter Details Date Type Department Care Team (Late st Contact Info) Description 05/29/2007 Orders Only [facility] Internal Medicine [address] [address] Smith Islas MD [address] [place] [phone] Social History Tobacco Use Types Packs/Day Years Used Date Smoking Tobacco: Never Assessed Comments Unknown Sex and Gender Information Value Date Recorded Sex Assigned at Not on file Legal Sex Female 3:30 AM FURNITURE DECALS INSPECTOR Gender Identity Not on file Sexual [...] on filedocumented in this encounter Care Teams K [employer] School Professional Relationship Specialty Start Date End Date Smith Islas MD [address] [place] [phone] PCP - General 10/22/03 07/11/15 documented as of this encounter
--- OUTSIDE RECORDS SUMMARY | 2025-01-20 23:21 | XMS_ITS | Encounter Summary ---
Author Organization [facility] Address 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
--- OUTSIDE RECORDS SUMMARY | 2025-01-20 23:21 | XMS_ITS | Encounter Summary ---
Author Organization [facility] Address [address] [place] [address] Care Team Providers Care Art Museum Docent Name Role Phone Smith Islas MD Primary Care Provider [phone] Encounter Details Date Type Department Care Team (Late st Contact Info) Description 10/16/2007 Outpatient Historical [facility] Internal Medicine [address] [address] Smith Islas MD [address] [place] [address] Social History Tobacco Use Types Packs/Day Years Used Date Smoking Tobacco: Never Assessed Comments Unknown Sex and Gender Information Value Date Recorded Sex Assigned at Not on file Legal Sex Female 3:30 AM TITLE I PARAPROFESSIONAL Gender Identity Not on file Sexual Orientation Not on file documented as of this encounter Last Filed Vital Signs Vital Sign Reading Time Taken Comments Blood Pressure 120/70 10/16/2007 2:00 PM TITLE I PARAPROFESSIONAL Pulse - - Temperature 36.2 C (97.1 F) 10/16/2007 2:00 PM TITLE I PARAPROFESSIONAL Respiratory Rate - - Oxygen Saturation - - Inhaled Oxygen Concentration - - Weight 94.3 kg (208 lb) 10/16/2007 2:00 PM TITLE I PARAPROFESSIONAL Height - - Body Mass Index 34.61 10/14/2003 10:30 AM TITLE I PARAPROFESSIONAL documented in this encounter Plan of Treatment Not on file documented as of this encounter Visit Diagnoses Not on filedocumented in this encounter Care Teams Art Museum Docent Relationship Specialty Start Date End Date Smith Islas MD [address] [place] [phone] PCP - General 10/22/03 07/11/15 documented as of this encounter
--- OUTSIDE RECORDS SUMMARY | 2025-01-20 23:21 | XMS_ITS | Encounter Summary ---
Author Organization [facility] Address [address] [place] [address] Phone Care Team Providers Care Tax Analyst Name Role Phone Radhika Arredondo MD Primary Care Provider [phone] Torri Johnson PT Unavailable Unavail able Dustin Tim PT Unavailable Unavailab Jong Brunson A&P MECHANIC Unavailable Unavaila Moriah Zapien NP Primary Care Provider [phone] Bradley Rubin MD Primary Care Provider [phone] Miscellaneous, Not In File Unavailable Unava ilTano Cates CABINET ABRASIVE SANDBLASTER Unavailable UnavailMaryam Sargent RN Unavailable [phone] Brijesh Cardenas MD Primary Care Provider [phone] Encounter Details Date Type Department Care Team (Late st Contact Info) Description 12/06/2017 Orders Only [facility] ProviderJohnny MD [facility] [place] [address] Social History Tobacco Use Types Packs/Day Years Used Date Smoking Tobacco: Former Cigarettes 1 15 Smokeless Tobacco: Never Alcohol Use Standard Drinks/Week Comments No 0 (1 standard drink = 0.6 oz pur e alcohol) Comments Unknown Sex and Gender Information Value Date Recorded Sex Assigned at Not on file Legal Sex Female 6:18 PM CORPORATE STATISTICAL FINANCIAL ANALYST Gender Identity Not on file Sexual [...] COVID: Suspected 10/26/2023 10/26/2023 10/26/2023 7:11 PM CORPORATE STATISTICAL FINANCIAL ANALYST documented as of this encounter Care Teams Tax Analyst Relationship Specialty Start Date End Date Radhika Arredondo MD [address] [facility] [address] [address] PCP - General Internal Medicine 10/01/17 11/26/19 Moriah Rodriguez NP PCP - General 11/27/19 08/15/20 Bradley Rubin MD [address] [facility] [place] [address] PCP - General Family Medicine 08/16/20 07/11/22 Brijesh Cardenas MD [address] [place] [address] [address] [place] [address] PCP - General Family Medicine 07/12/22 Torri Johnson, PT Physical Therapist Physical Therapy 04/18/18 Dustin Tim, PT Physical Therapist Physical Therapy 04/26/18 Jong Reeves, A&P MECHANIC Physical Therapist Physical Therapy 05/08/18 Miscellaneous, Not In File 03/17/21 Tano Purcell LCSW Counterperson 03/22/21 01/17/22 Maryam Cline, RN [address] [place] [address] [address] [place] [address] Formal Waiter/Waitress 07/04/21 07/27/21 documented as of this encounter
--- OUTSIDE RECORDS SUMMARY | 2025-01-20 23:21 | XMS_ITS | Clinical Summary ---
Author Organization [facility] Address [address] [place] [address] Care Team Providers Care Sheet Metal Operator Name Role Phone Bradley Rubin MD Primary Care Provider [phone] Allergies No known active allergies Medications oxyCODONE-acetam [...] patient's age to complete this topic Insurance [facility] Care Teams Sheet Metal Operator Relationship Specialty Start Date [place] [address] PCP - General FAMILY PRACTICE 05/16/21
--- OUTSIDE RECORDS SUMMARY | 2025-01-20 23:21 | XMS_ITS | Referral Summary ---
Author Organization [facility] Address [address] [place] [address] Care Team Providers Care Mineral Economist Name Role Phone Alex Torri Kamara PT Unavailable Unavail able Dustin Tim PT Unavailable Unavailab Jong Brunson PTA Unavailable Unavaila ble Miscellaneous, Not In File Unavailable Unava Brijesh Hdz MD Primary Care Provider [phone] Encounters Date Type Department Care Team Description 11/17/2024 1:50 PM NUMERICAL CONTROL DRILL PRESS OPERATOR - 11/17/2024 11:59 PM [facility] Hospital Encounter [facility] Advanced Medicine Breast Imaging [facility] Advanced Medicine ([facility] [address] [place] [phone] Screening mammogram, encounter for Discharge Disposition: Discharge [...] 05/31/2021 Assessment & Plan (09/13/2021 1:57 PM NUMERICAL CONTROL DRILL PRESS OPERATOR): Not well controlled, 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 She wants, we have two account specialist in our group if it is [...] 11/07/2017 Assessment & Plan (09/27/2020 2:05 PM NUMERICAL CONTROL DRILL PRESS OPERATOR): Not well controlled, patient weight is stable [...] therapy Assessment & Plan (10/25/2020 2:09 PM NUMERICAL CONTROL DRILL PRESS OPERATOR): Patient is better tolerating Januvia, will continue current dose and check a1c today Assessment & Plan (09/27/2020 2:03 PM NUMERICAL CONTROL DRILL PRESS OPERATOR): Does not want to check a1c today -unknown control, patient had high carbohydrate meals during holiday season -cannot tolerate metformin 2/2 diarrhea, would like to try a different medication -will prescribe Januvia, and recheck blood sugars in 1 month to evaluate response to new therapy Assessment & Plan (08/18/2020 12:44 PM NUMERICAL CONTROL DRILL PRESS OPERATOR): Stable, well controlled, will continue emphaglifozin-metformin combo pill and check A1c today Assessment & Plan (05/10/2018 8:58 AM CDT): Continue current treatment plan. Foot care discussed. 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 -continue to monitor aspatient does say she feels exhausted all of the time. Hyperlipidemia 10/26/2014 Overview (12/29/2016): Hyperlipidemia Assessment & Plan (08/18/2020 12:43 PM NUMERICAL CONTROL DRILL PRESS OPERATOR): Stable, well controlled, continue atorvastatin 80 mg Essential hypertension 10/26/2014 Overview (12/29/2016): Essential hypertension Assessment & Plan (10/25/2020 2:14 PM NUMERICAL CONTROL DRILL PRESS OPERATOR): Blood pressure is well controlled, no signs [...] measurement Assessment & Plan (10/25/2020 2:14 PM NUMERICAL CONTROL DRILL PRESS OPERATOR): Will check TSH today, patient reprots she feels tired all of the time, but does not have any other symptoms of hypo or hyper-thyroidism. Assessment & Plan (08/18/2020 12:44 PM NUMERICAL CONTROL DRILL PRESS OPERATOR): Stable, no signs or symptoms of hypo [...] depression Assessment & Plan (10/25/2020 2:12 PM NUMERICAL CONTROL DRILL PRESS OPERATOR): Improving, patient has started sertraline again, feels better, mood is improving. Assessment & Plan (09/27/2020 2:04 PM NUMERICAL CONTROL DRILL PRESS OPERATOR): Discussed with patient risk of GI bleeding combination of NSAIDs and sertraline, that likely occurs with all SSRIs Patient prefers emma continue with duloexetine -patient to work on some lifestyle changes for weight loss, which can also help with mood such as get out and exercise more Assessment & Plan (08/18/2020 12:48 PM NUMERICAL CONTROL DRILL PRESS OPERATOR): Patient is stress related to caring for and elderly mother Unable to travel, and limited social interactions due to COVID-19 He constipation, will continue Cymbalta 60 mg Continue to follow with patient to evaluate response to therapy Osteoarthritis 10/12/2003 Assessment & Plan (10/25/2020 2:12 PM NUMERICAL CONTROL DRILL PRESS OPERATOR): Not well controlled, continues to have pain [...] often do you attend chur ch or synagogue services? Never 03/22/2021 Do you belong to any clubs o r organizations such as roman catholic groups, unions, fraternal or athletic groups, or [...] place to sleep or slept in a nursing home (including now)? No 03/22/2021 Personal Safety Answer Date Recorded Have you ever been in or are you currently in a harmful physical or emotional relationship or is someone making you feel afraid or unsafe? Denies 04/11/2023 Comments No Sex and Gender Information Value Date Recorded Sex Assigned at Not on file Legal Sex Female 6:18 PM NUMERICAL CONTROL DRILL PRESS OPERATOR Gender Identity Not on file Sexual Orientation Not on file Last Filed Vital Signs Vital Sign Reading Time Taken Comments Blood Pressure 146/84 10/04/2024 2:04 PM NUMERICAL CONTROL DRILL PRESS OPERATOR Pulse 88 10/04/2024 2:04 PM NUMERICAL CONTROL DRILL PRESS OPERATOR Temperature 36.6 C (97.8 F) 10/04/2024 2:04 PM NUMERICAL CONTROL DRILL PRESS OPERATOR Respiratory Rate 18 10/04/2024 2:04 PM NUMERICAL CONTROL DRILL PRESS OPERATOR Oxygen Saturation 97% 10/04/2024 2:04 PM NUMERICAL CONTROL DRILL PRESS OPERATOR Inhaled Oxygen Concentration - - Weight 92.5 kg (204 lb) 10/04/2024 2:04 PM NUMERICAL CONTROL DRILL PRESS OPERATOR Height 160 cm (5' 3 ) 10/04/2024 2:04 PM NUMERICAL CONTROL DRILL PRESS OPERATOR Body Mass Index 36.14 10/04/2024 2:04 PM NUMERICAL CONTROL DRILL PRESS OPERATOR Plan of Treatment Not on file Procedures Procedure Name Priority Date/Time Associated Diagnosis Comments SCREENING MAMMOGRAM LEFT W CONG UNILATERAL ONLY Schedule Routine, Read Routine (OP Routine) 11/17/2024 2:07 PM NUMERICAL CONTROL DRILL PRESS OPERATOR Screening mammogram, encounter for EGFR STAT 04/11/2023 7:19 PM CDT HEMOGLOBIN A1C Routine 03/16/2021 6:27 AM CDT DIABETIC EYE EXAM Routine 12/06/2020 LIPID PANEL Routine 10/25/2020 12:00 PM NUMERICAL CONTROL DRILL PRESS OPERATOR Annual physical exam ALBUMIN CREATININE RATIO, URINE Routine 10/25/2020 12:00 PM NUMERICAL CONTROL DRILL PRESS OPERATOR Type 2 diabetes mellitus with other circulatory complication, without long-term current use of insulin (HCC) DEXA AXIAL SKELETON BONE DENSITY 1 OR MORE SITES Schedule Routine, Read Routine (OP Routine) 10/06/2019 1:00 PM NUMERICAL CONTROL DRILL PRESS OPERATOR Asymptomatic menopause COLONOSCOPY IMAGES 11/17/2015 from Last 3 Months or Most Recently Relevant to Health Maintenance Results * Screening Mammogram Left W Cong Unilateral Only (11/17/2024 2:07 PM NUMERICAL CONTROL DRILL PRESS OPERATOR) Anatomical Region Laterality Modality Breast Left Mammography Narrative 11/19/2024 11:42 AM NUMERICAL CONTROL DRILL PRESS OPERATOR Mammogram Technique: Left Breast Digital Breast Tomosynthesis, Unilateral C-view 2D Screening mammogram. Views obtained: left craniocaudal and left mediolateral oblique. Computer Aided Detection was performed. Mammogram Findings: The present examination has been compared to prior imaging studies performed at [facility] on 09/20/2021, 09/21/2022 and 11/16/2023. There [...] compared to prior imaging studies performed at [facility] on 09/20/2021, 09/21/2022 and 11/16/2023. There [...] PM CDT) eGFR 83 mL/min/1. 73 m2 [facility]IS ([facility]ON[facility]ES) Comment: Interpretive Data Reference Interval [...] BLOOD ORDERABLES Final R esult [facility] M[facility]RIS ([place]) [address] Department [place] [address] * (ABNORMAL) Hemoglobin A1c (03/16/2021 6:27 AM CDT) Hgb A1C 8.1(H) 4.0 - 5.6 % CHUCK Estimated Average Glucose 186 mg/dL [facility] Comment: The ADA recommends reporting an estimated Average Glucose (eAG) with all Hemoglobin A1c results using the equation derived from a study of 507 normal and diabetic adults. Minority populations were underrepresented and children were not included. (Diabetes Care 31:0291-1512, 2008). The eAG is not equivalent to a fasting glucose. Blood specimen (specimen) 03/16/2021 6:27 AM CDT 03/16/2021 7:21 AM CDT Heike Lau NP LAB BLOOD ORDERABLES Final R esult Performing Organization Address [facility] Co de Phone Number [facility] [address] [place] [address] * Diabetic Eye Exam (12/06/2020) Historical Provider [facility] MAINTENANCE Edited Result - Final * Albumin Creatinine Ratio, Urine (10/25/2020 12:00 PM NUMERICAL CONTROL DRILL PRESS OPERATOR) Pathologist [facility] Albumin Ur 25.3 mg/L CHUCK Comment: Interpretive Data No reference range established. Current interpretive data was last revised 2019. Creatinine Ur 108.3 mg/dL [facility] Comment: Interpretive Data No reference range established. Current interpretive data was last revised 2019. Albumin Creatinine Ratio, Ur 23 1 - 29 mg/g CHUCK Urine 10/25/2020 12:0 0 PM NUMERICAL CONTROL DRILL PRESS OPERATOR 10/25/2020 4:42 PM NUMERICAL CONTROL DRILL PRESS OPERATOR Bradley Rubin MD LAB URINE ORDERABLES Tangela l Result Performing Organization Address [facility] Co de Phone Number [facility] [address] [place] [address] * (ABNORMAL) Lipid panel (10/25/2020 12:00 PM NUMERICAL CONTROL DRILL PRESS OPERATOR) Cholesterol 216(H) 30 - 199 mg/dL CHUCK [...] CHUCK Blood specimen (specimen) 10/25/2020 12:00 PM NUMERICAL CONTROL DRILL PRESS OPERATOR 10/25/2020 4:42 PM NUMERICAL CONTROL DRILL PRESS OPERATOR us Bradely Rubin MD LAB BLOOD ORDERABLES Tangela l Result [facility] [address] Department [place] [address] * Dexa Axial Skeleton Bone Density 1 or 2 Site (10/06/2019 1:00 PM NUMERICAL CONTROL DRILL PRESS OPERATOR) Anatomical Region Laterality Modality Body N/A Other 10/06/2019 1:11 PM NUMERICAL CONTROL DRILL PRESS OPERATOR Impressions 10/06/2019 1:15 PM NUMERICAL CONTROL DRILL PRESS OPERATOR Normal bone mineral density of the spine. Bone mineral density of the left hip falls within osteopenia range. In comparison to previous examination, there is increased bone mineral density of the spine and left hip. Electronically signed by: Janeen Riojas M.D. Narrative 10/06/2019 1:15 PM NUMERICAL CONTROL DRILL PRESS OPERATOR Examination: Bone densitometry of the lumbar spine [...] to Health Maintenance Insurance AET[employer] MEDICARE [facility] Address: [facility] [id number] [place] [address] [facility] RE[facility] UHC MEDICARE ADVANTAGE [facility]IC[facility] Address: [facility] [address] [address] [place] [address] AETNA MEDICARE [facility] MEDIC[facility] Address: [facility] [id number] [place] [address] A[employer] MEDICARE GOLD Advance Directives For more information, please contact: [phone] Documents on File Type Date Recorded Patient Marketing Planning Manager Expl anation ADVANCE DIRECTIVE 03/18/2021 10:38 AM JENNIFER R OF CHEMICAL PROCESS EQUIPMENT OPERATOR-MEDICAL ADVANCE DIRECTIVE 08/10/2017 9:07 AM JENNIFER R OF CHEMICAL PROCESS EQUIPMENT OPERATOR * Full Code (Latest Code Status on File) Date Activated Date Inactivated Comments 03/15/2021 9:40 PM 03/17/2021 7:03 PM Care Teams Mineral Economist Relationship Specialty Start Date End Date Brijesh Cardenas MD PCP - General Family Medicine 07/12/22 Torri Johnson, PT Physical Therapist Physical Therapy 04/18/18 Dustin Tim, PT Physical Therapist Physical Therapy 04/26/18 Jong Reeves, INTERIOR DESIGN TEACHER Physical Therapist Physical Therapy 05/08/18 Miscellaneous, Not In File 03/17/21
--- OUTSIDE RECORDS SUMMARY | 2025-01-20 23:21 | XMS_ITS | Encounter Summary ---
Author Organization [facility] Address [address] [place] [address] Care Team Providers Care Measurement Superintendent Name Role Phone Smith Islas MD Primary Care Provider [phone] Encounter Details Date Type Department Care Team (Late st Contact Info) Description 10/15/2003 Outpatient Historical [facility] Support Serv. (Adt Cardiology-[facility]) [address] [place] [phone] Sangita Carter MD Social History Tobacco Use Types Packs/Day Years Used Date Smoking Tobacco: Never Assessed Comments Unknown Sex and Gender Information Value Date Recorded Sex Assigned at Not on file Legal Sex Female 3:30 AM GAMBRELER Gender Identity Not on file Sexual Orientation Not on file documented as of this encounter Plan of Treatment Not on file documented as of this encounter Visit Diagnoses Not on filedocumented in this encounter Care Teams Measurement Superintendent Relationship Specialty Start Date End Date Simth Islas MD [address] [place] [phone] PCP - General 10/22/03 07/11/15 documented as of this encounter
--- OUTSIDE RECORDS SUMMARY | 2025-01-20 23:21 | XMS_ITS | Encounter Summary ---
Author Organization [facility] Address [address] [place] [address] Care Team Providers Care Manager Renewable Energy Name Role Phone Becka Escobedo MD Primary Care Provider [phone] Encounter Details Date Type Department Care Team (Late st Contact Info) Description 10/16/2007 Orders Only [facility] Internal Medicine [address] [address] Becka Escobedo MD [address] [place] [phone] Social History Tobacco Use Types Packs/Day Years Used Date Smoking Tobacco: Never Assessed Comments Unknown Sex and Gender Information Value Date Recorded Sex Assigned at Not on file Legal Sex Female 3:30 AM CUT OUT MARKER Gender Identity Not on file Sexual Orientation Not on file documented as of this encounter Progress Notes * Becka Escobedo MD - 02/05/2008 8:18 PM CDT CENTRAL TEST SCHEDULING DATE: OCT 16, 2007 Note created by: Rossi Herrera E 02:44 p Patient Name : MORRIS STOKES Address: [address] [address] D.O.B: 1945 SSN: [id number] Parent/Guardian if applicable: Patient Insurance: [employer] ID#: [id number] Group#: ORDER(S) #: [id number] [facility] BEST TO CALL CELL. [phone] MAY WE LEAVE MESSAGE AT THAT NUMBER: YES, LEAVE MESSAGE. PLEASE SCHEDULE THE APPOINTMENT AT THE FOLLOWING LOCATION: [facility] [phone]. TEST PRIORITY: 2 - 7 DAYS. SPECIAL SCHEDULING INSTRUCTIONS: need prep ORDERING PHYSICIAN: BECKA ESCOBEDO MD OFFICE CREDIT ADJUSTER & PHONE: Rossi Herrera E ORDER PRINTED BY: OCT 17, 2007 Deidre Biggs 12:51 p FOR SCHEDULING USE ONLY: FIRST ATTEMPT Date:OCT 18, 2007 Deidre Biggs 08:30 a Spoke with Patient. OCT 18, 2007 Deidre Biggs 08:31 a [facility] [phone]. APPOINTMENT DATE : 10/21/2007 ( 2pm) The appointment was scheduled by Deidre Biggs at [phone] FINAL ACTION Follow up completed. Spoke with [...] proceed with us LAB ORDERS: Order number: [id number] Test Ordered: US BREAST LEFT StA 461.9-SINUSITIS [...] filedocumented in this encounter Care Teams Manager Renewable Energy Relationship Specialty Start Date End Date Becka Escobdeo MD [address] [place] [phone] PCP - General 10/22/03 07/11/15 documented as of this encounter
--- OUTSIDE RECORDS SUMMARY | 2025-01-20 23:21 | XMS_ITS | Clinical Summary ---
Author Organization [facility] Address [address] [place] [address] Care Team Providers Care Tenant Relations Coordinator Name Role Phone Unavailable Primary Care Provider Unavailabl e Source Comments [facility],non-owned Affiliates and Associated Physician Practices is amultiple site organization consisting of ambulatory clinics and hospital sitesin [place], [place], [place] and [place]. This disclosure is being madepursuant to the Care Everywhere program and may not contain all information available regarding this patient. Last updated 18.[facility] Social History Tobacco Use Types Packs/Day [...]
--- OUTSIDE RECORDS SUMMARY | 2025-01-20 23:21 | XMS_ITS | Encounter Summary ---
Author Organization [facility] Address [address] [place] [address] Care Team Providers Care Death Clearance Coordinator Name Role Phone Smith Islas MD Primary Care Provider [phone] Encounter Details Date Type Department Care Team (Late st Contact Info) Description 11/13/2007 Outpatient [facility] Internal Medicine [address] [address] Smith Islas MD [address] [place] [phone] Social History Tobacco Use Types Packs/Day Years Used Date Smoking Tobacco: Never Assessed Comments Unknown Sex and Gender Information Value Date Recorded Sex Assigned at Not on file Legal Sex Female 3:30 AM CLOTH CUTTING MACHINE OPERATOR Gender Identity Not on file Sexual Orientation Not on file documented as of this encounter Plan of Treatment Not on file documented as of this encounter Visit Diagnoses Not on filedocumented in this encounter Care Teams Death Clearance Coordinator Relationship Specialty Start Date End Date Smith Islas MD [address] [place] [address] [address] [place] [address] PCP - General 10/22/03 07/11/15 documented as of this encounter
--- OUTSIDE RECORDS SUMMARY | 2025-01-20 23:21 | XMS_ITS | Encounter Summary ---
Author Organization [facility] Address [address] [place] [address] Care Team Providers Care Budget Examiner Name Role Phone Smith Islas MD Primary Care Provider [phone] Encounter Details Date Type Department Care Team (Latest Contact Info) Description 01/30/2008 Outpatient Historical [facility] Internal Medicine [address] [address] Smith Islas MD [address] [place] [phone] DM w/o Complication Type II (CMS/HCC) Social History Tobacco Use Types Packs/Day Years Used Date Smoking Tobacco: Never Assessed Comments Unknown Sex and Gender Information Value Date Recorded Sex Assigned at Not on file Legal Sex Female 3:30 AM BORDER POLICE Gender Identity Not on file Sexual Orientation [...] CDT) HDL 57 40 - 59 mg/dL [facility] CHOLESTEROL 190 100 - 199 mg/dL [facility] CHOL/HDL RATIO 3.3 2.0 - 5.0 [facility] TRIGLYCERIDE 120 10 - 149 mg/dL [facility] LDL CALCULATED 109(H) <=99 mg/dL [facility] LIPID PANEL COMMENT See Below [facility] Comment: The adult ATP and pediatric NCEP classifications for lipids are available on the [facility] Intranet at: [email or web address] [email or web address] Select: Lab Policies and Procedures,Current Select: Lipid Panel Interpretation Blood specimen (specimen) 01/30/2008 9:19 AM CDT 01/30/2008 3:20 PM CDT Smith Islas MD CHEMISTRY ORDERABLES Edited Performing Organization Address [facility] Co de Phone Number [facility] [address] [place] [address] * (ABNORMAL) HEMOGLOBIN A1C (01/30/2008 9:19 AM CDT) HEMOGLOBIN A1C 6.9(H) 4.1 - 6.1 % of Hgb [facility] GLUCOSE, MEAN BLOOD 168 mg/dL [facility] Blood specimen (specimen) 01/30/2008 9:19 AM CDT 01/30/2008 3:20 PM CDT Smith Islas MD CHEMISTRY ORDERABLES Final Re sult [facility] CLIA# [id number] [address] [place] [address] * TSH (01/30/2008 9:19 AM CDT) TSH 1.13 0.27 - 4.20 uU/mL [facility] Blood specimen (specimen) 01/30/2008 9:19 AM CDT 01/30/2008 3:20 PM CDT us Smith Islas MD CHEMISTRY ORDERABLES Final Re sult [facility] [address] [place] [address] * (ABNORMAL) COMPREHENSIVE METABOLIC PANEL (01/30/2008 9:19 AM CDT) [facility] TOTAL PROTEIN 7.2 6.3 - 8.6 g/dL [facility] POTASSIUM 4.0 3.5 - 4.9 mmol/L [facility] GLUCOSE 113(H) 65 - 99 mg/dL [facility] AST 17 12 - 32 U/L [facility] BUN 13 6 - 20 mg/dL [facility] CALCIUM 9.3 8.4 - 10.2 mg/dL [facility] CHLORIDE 105 96 - 108 mmol/L [facility] ALBUMIN 4.2 3.4 - 4.8 g/dL [facility] CREATININE 0.47(L) 0.51 - 0.95 mg/dL [facility] SODIUM 139 135 - 145 mmol/L [facility] ALT 18 0 - 31 U/L [facility] ALKALINE PHOSPHATASE 114(H) 35 - 104 U/L [facility] BILIRUBIN TOTAL 0.6 0.2 - 1.0 mg/dL [facility] CO2 22 22 - 30 mmol/L [facility] GFR, >60 >=60 mL/min/1. [address] [facility] GFR >60 >=60 mL/min/1. [address] [facility] Comment: Estimated GFR rate interpretative information for both Americans and non- Americans is available on the [facility] Intranet at: [email or web address] Select: Lab Policies and Procedures Select: Reference Ranges - GFR Blood specimen (specimen) 01/30/2008 9:19 AM CDT 01/30/2008 3:20 PM CDT us Smith Islas MD CHEMISTRY ORDERABLES Edited [facility] [address] [place] [address] documented in this encounter Visit Diagnoses Diagnosis Type II or unspecified type diabetes mellitus without mention of complication, not stated as uncontrolled documented in this encounter Care Teams Budget Examiner Relationship Specialty Start Date End Date Smith Islas MD [address] [place] [phone] PCP - General 10/22/03 07/11/15 documented as of this encounter
--- OUTSIDE RECORDS SUMMARY | 2025-01-20 23:21 | XMS_ITS | Clinical Summary ---
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 She wants, we have two home health billing specialist in our group if it is [...] 11/07/2017 Assessment & Plan (09/27/2020 2:05 PM LOSS PREVENTION/SAFETY DISTRICT MANAGER): Not well controlled, patient weight is stable [...] therapy Assessment & Plan (10/25/2020 2:09 PM LOSS PREVENTION/SAFETY DISTRICT MANAGER): Patient is better tolerating Januvia, will continue current dose and check a1c today Assessment & Plan (09/27/2020 2:03 PM LOSS PREVENTION/SAFETY DISTRICT MANAGER): Does not want to check a1c today -unknown control, patient had high carbohydrate meals during holiday season -cannot tolerate metformin 2/2 diarrhea, would like to try a different medication -will prescribe Januvia, and recheck blood sugars in 1 month to evaluate response to new therapy Assessment & Plan (08/18/2020 12:44 PM LOSS PREVENTION/SAFETY DISTRICT MANAGER): Stable, well controlled, will continue emphaglifozin-metformin combo pill and check A1c today Assessment & Plan (05/10/2018 8:58 AM CDT): Continue current treatment plan. Foot care discussed. 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 -continue to monitor aspatient does say she feels exhausted all of the time. Hyperlipidemia 10/26/2014 Overview (12/29/2016): Hyperlipidemia Assessment & Plan (08/18/2020 12:43 PM LOSS PREVENTION/SAFETY DISTRICT MANAGER): Stable, well controlled, continue atorvastatin 80 mg Essential hypertension 10/26/2014 Overview (12/29/2016): Essential hypertension Assessment & Plan (10/25/2020 2:14 PM LOSS PREVENTION/SAFETY DISTRICT MANAGER): Blood pressure is well controlled, no signs [...] measurement Assessment & Plan (10/25/2020 2:14 PM LOSS PREVENTION/SAFETY DISTRICT MANAGER): Will check TSH today, patient reprots she feels tired all of the time, but does not have any other symptoms of hypo or hyper-thyroidism. Assessment & Plan (08/18/2020 12:44 PM LOSS PREVENTION/SAFETY DISTRICT MANAGER): Stable, no signs or symptoms of hypo [...] depression Assessment & Plan (10/25/2020 2:12 PM LOSS PREVENTION/SAFETY DISTRICT MANAGER): Improving, patient has started sertraline again, feels better, mood is improving. Assessment & Plan (09/27/2020 2:04 PM LOSS PREVENTION/SAFETY DISTRICT MANAGER): Discussed with patient risk of GI bleeding combination of NSAIDs and sertraline, that likely occurs with all SSRIs Patient prefers emma continue with duloexetine -patient to work on some lifestyle changes for weight loss, which can also help with mood such as get out and exercise more Assessment & Plan (08/18/2020 12:48 PM LOSS PREVENTION/SAFETY DISTRICT MANAGER): Patient is stress related to caring for and elderly mother Unable to travel, and limited social interactions due to COVID-19 He constipation, will continue Cymbalta 60 mg Continue to follow with patient to evaluate response to therapy Osteoarthritis 10/12/2003 Assessment & Plan (10/25/2020 2:12 PM LOSS PREVENTION/SAFETY DISTRICT MANAGER): Not well controlled, continues to have pain [...] Department Care Team Description 11/17/2024 1:50 PM LOSS PREVENTION/SAFETY DISTRICT MANAGER - 11/17/2024 11:59 PM LOSS PREVENTION/SAFETY DISTRICT MANAGER Hospital Encounter [facility] ([facility]) [address] [place] [address] Screening mammogram, encounter for Discharge Disposition: Discharge [...] week 03/22/2021 How often do you attend [facility] or mosque services? Never 03/22/2021 Do you belong to any clubs o r organizations such as lutheran groups, unions, fraternal or athletic groups, or [...] on file Legal Sex Female 6:18 PM LOSS PREVENTION/SAFETY DISTRICT MANAGER Gender Identity Not on file Sexual Orientation Not on file Obstetrics History Last Filed Vital Signs Vital Sign Reading Time Taken Comments Blood Pressure 146/84 10/04/2024 2:04 PM LOSS PREVENTION/SAFETY DISTRICT MANAGER Pulse 88 10/04/2024 2:04 PM LOSS PREVENTION/SAFETY DISTRICT MANAGER Temperature 36.6 C (97.8 F) 10/04/2024 2:04 PM LOSS PREVENTION/SAFETY DISTRICT MANAGER Respiratory Rate 18 10/04/2024 2:04 PM LOSS PREVENTION/SAFETY DISTRICT MANAGER Oxygen Saturation 97% 10/04/2024 2:04 PM LOSS PREVENTION/SAFETY DISTRICT MANAGER Inhaled Oxygen Concentration - - Weight 92.5 kg (204 lb) 10/04/2024 2:04 PM LOSS PREVENTION/SAFETY DISTRICT MANAGER Height 160 cm (5' 3 ) 10/04/2024 2:04 PM LOSS PREVENTION/SAFETY DISTRICT MANAGER Body Mass Index 36.14 10/04/2024 2:04 PM LOSS PREVENTION/SAFETY DISTRICT MANAGER Plan of Treatment Health Maintenance Due [...] Read Routine (OP Routine) 11/17/2024 2:07 PM LOSS PREVENTION/SAFETY DISTRICT MANAGER Screening mammogram, encounter for EGFR STAT 04/11/2023 7:19 PM CDT HEMOGLOBIN A1C Routine 03/16/2021 6:27 AM CDT DIABETIC EYE EXAM Routine 12/06/2020 LIPID PANEL Routine 10/25/2020 12:00 PM LOSS PREVENTION/SAFETY DISTRICT MANAGER Annual physical exam ALBUMIN CREATININE RATIO, URINE Routine 10/25/2020 12:00 PM LOSS PREVENTION/SAFETY DISTRICT MANAGER Type 2 diabetes mellitus with other circulatory complication, without long-term current use of insulin (HCC) DEXA AXIAL SKELETON BONE DENSITY 1 OR MORE SITES Schedule Routine, Read Routine (OP Routine) 10/06/2019 1:00 PM LOSS PREVENTION/SAFETY DISTRICT MANAGER Asymptomatic menopause COLONOSCOPY IMAGES 11/17/2015 from Last 3 Months or Most Recently Relevant to Health Maintenance Results * Screening Mammogram Left W Cong Unilateral Only (11/17/2024 2:07 PM LOSS PREVENTION/SAFETY DISTRICT MANAGER) Anatomical Region Laterality Modality Breast Left Mammography Narrative 11/19/2024 11:42 AM LOSS PREVENTION/SAFETY DISTRICT MANAGER Mammogram Technique: Left Breast Digital Breast Tomosynthesis, Unilateral C-view 2D Screening mammogram. Views obtained: left craniocaudal and left mediolateral oblique. Computer Aided Detection was performed. Mammogram Findings: The present examination has been compared to prior imaging studies performed at [facility] on 09/20/2021, 09/21/2022 and 11/16/2023. There are [...] compared to prior imaging studies performed at [facility] on 09/20/2021, 09/21/2022 and 11/16/2023. There are [...] eGFR 83 mL/min/1. 73 m2 CHUCK MORRIS ([place]) Comment: Interpretive Data Reference Interval Normal >/= [...] BLOOD ORDERABLES Final R esult CHUCK MORRIS ([place]) [address] [facility] Department [place] [address] * (ABNORMAL) Hemoglobin A1c (03/16/2021 6:27 AM CDT) Hgb A1C 8.1(H) 4.0 - 5.6 % CHUCK CAPLELAN Estimated Average Glucose 186 mg/dL CHUCK CAPELLAN Comment: The ADA recommends reporting an estimated Average Glucose (eAG) with all Hemoglobin A1c results using the equation derived from a study of 507 normal and diabetic adults. Minority populations were underrepresented and children were not included. (Diabetes Care 31:3872-1500, 2008). The eAG is not equivalent to a fasting glucose. Blood specimen (specimen) 03/16/2021 6:27 AM CDT 03/16/2021 7:21 AM CDT Heike Lau CAPTAIN FISHING VESSEL LAB BLOOD ORDERABLES Final R esult Performing Organization Address [facility] Co de Phone Number [facility] [address] [place] [address] * Diabetic Eye Exam (12/06/2020) Historical Provider HEALTH MAINTENANCE Edited Result - Final * Albumin Creatinine Ratio, Urine (10/25/2020 12:00 PM LOSS PREVENTION/SAFETY DISTRICT MANAGER) Albumin Ur 25.3 mg/L [facility] Comment: Interpretive Data No reference range established. Current interpretive data was last revised 2019. Creatinine Ur 108.3 mg/dL [facility] Comment: Interpretive Data No reference range established. Current interpretive data was last revised 2019. Albumin Creatinine Ratio, Ur 23 1 - 29 mg/g [facility] Urine 10/25/2020 12:0 0 PM LOSS PREVENTION/SAFETY DISTRICT MANAGER 10/25/2020 4:42 PM LOSS PREVENTION/SAFETY DISTRICT MANAGER Bradley Rubin MD LAB URINE ORDERABLES Tangela l Result Performing Organization Address [facility] de Phone Number [facility] [address] [place] [address] * (ABNORMAL) Lipid panel (10/25/2020 12:00 PM LOSS PREVENTION/SAFETY DISTRICT MANAGER) Cholesterol 216(H) 30 - 199 mg/dL [facility] Comment: Interpretive Data Ages < or [...] CHUCK Blood specimen (specimen) 10/25/2020 12:00 PM LOSS PREVENTION/SAFETY DISTRICT MANAGER 10/25/2020 4:42 PM LOSS PREVENTION/SAFETY DISTRICT MANAGER us Bradley Rubin MD LAB BLOOD ORDERABLES Tangela jose Result [facility] [address] Department [place] [address] * Dexa Axial Skeleton Bone Density 1 or 2 Site (10/06/2019 1:00 PM LOSS PREVENTION/SAFETY DISTRICT MANAGER) Anatomical Region Laterality Modality Body N/A Other 10/06/2019 1:11 PM LOSS PREVENTION/SAFETY DISTRICT MANAGER Impressions 10/06/2019 1:15 PM LOSS PREVENTION/SAFETY DISTRICT MANAGER Normal bone mineral density of the spine. Bone mineral density of the left hip falls within osteopenia range. In comparison to previous examination, there is increased bone mineral density of the spine and left hip. Electronically signed by: Janeen Riojas M.D. Narrative 10/06/2019 1:15 PM LOSS PREVENTION/SAFETY DISTRICT MANAGER Examination: Bone densitometry of the lumbar spine [...] Most Recently Relevant to Health Maintenance Insurance [facility] MEDICARE GOLD [facility] HMO REF [facility] Address: [facility] [address] [place] [address] [facility] GOLD REF [employer]ET[employer] MEDICARE GOLD AETNA MEDICARE GOLD Advance Directives For more information, please contact: [phone] Documents on File Type Date Recorded Patient Systems Auditor Expl anation ADVANCE DIRECTIVE 03/18/2021 10:38 AM JENNIFER R OF VOLLEYBALL ASSEMBLER-MEDICAL ADVANCE DIRECTIVE 08/10/2017 9:07 AM JENNIFER R OF VOLLEYBALL ASSEMBLER * Full Code (Latest Code Status on File) Date Activated Date Inactivated Comments 03/15/2021 9:40 PM 03/17/2021 7:03 PM Care Teams Assistant Account Manager Relationship Specialty Start Date End Date Brijesh Cardenas MD PCP - General Family Medicine 07/12/22 Torri Johnson, PT Physical Therapist Physical Therapy 04/18/18 Dustin Tim, PT Physical Therapist Physical Therapy 04/26/18 Jong Reeves, PATTERNMAKER APPRENTICE METAL Physical Therapist Physical Therapy 05/08/18 Miscellaneous, Not In File 03/17/21
--- OUTSIDE RECORDS SUMMARY | 2025-01-20 23:21 | XMS_ITS | Encounter Summary ---
Author Organization [facility] Address [address] [place] [address] Care Team Providers Care Extermination Inspector Name Role Phone Smith Islas MD Primary Care Provider [phone] Encounter Details Date Type Department Care Team (Late st Contact Info) Description 10/14/[address] [facility] Internal Medicine [address] [address] Smith Islas MD [address] [place] [phone] Social History Tobacco Use Types Packs/Day Years Used Date Smoking Tobacco: Never Assessed Comments Unknown Sex and Gender Information Value Date Recorded Sex Assigned at Not on file Legal Sex Female 3:30 AM BEACH ATTENDANT Gender Identity Not on file Sexual Orientation Not on file documented as of this encounter Last Filed Vital Signs Vital Sign Reading Time Taken Comments Blood Pressure 140/90 10/14/2003 10:30 AM BEACH ATTENDANT Pulse - - Temperature - - Respiratory Rate - - Oxygen Saturation - - Inhaled Oxygen Concentration - - Weight 96.2 kg (212 lb) 10/14/2003 10:30 AM BEACH ATTENDANT Height 165.1 cm (5' 5 ) 10/14/2003 10:30 AM BEACH ATTENDANT Body Mass Index 35.28 10/14/2003 10:30 AM BEACH ATTENDANT documented in this encounter Plan of Treatment Not on file documented as of this encounter Visit Diagnoses Not on filedocumented in this encounter Care Teams Extermination Inspector Relationship Specialty Start Date End Date Smith Islas MD [address] [place] [phone] PCP - General 10/22/03 07/11/15 documented as of this encounter
--- OUTSIDE RECORDS SUMMARY | 2025-01-20 23:21 | XMS_ITS | Encounter Summary ---
Author Organization [facility] Address [address] [place] [address] Care Team Providers Care Payroll Services Analyst Name Role Phone Unavailable Primary Care Provider Unavailabl e Encounter Details Date Type Department Care Team (Late st Contact Info) Description 06/19/2023 Lab Requisition [facility] - Derm[facility] Lab [address] [facility] [place] [address] Ravinder Mcgarry MD [address] [facility] [place] [place] [address] Social History Tobacco Use [...] AM CDT) Case Report Dermatopathology Report Case: [id number] Authorizing Provider: Ravinder Mcgarry MD Collected: 06/18/2023 03:33 AM Ordering Location: [facility] Received: 06/20/2023 06:23 AM Pathologist: Viral Potts MD Specimen: Skin, post neck 3:29 PM CDT DERMATOPATHOLOGY LABORATORY Final Diagnosis Specimen A. SKIN, post neck: SUPERFICIAL PERIVASCULAR LYMPHOCYTIC INFILTRATE WITH RARE EOSINOPHILS (L27.0) (see microscopic description and comment) 3:29 PM CDT DERMATOPATHOLOGY LABORATORY Clinical History Psoriasis vs. Tinea vs. Other. Path# [id number] 3 3:29 PM CDT DERMATOPATHOLOGY LABORATORY Gross [...] characteristic determined by the Dermatopathology Laboratory at [facility], directed by Dr. Tyrese Potts. These tests need not be, and therefore are not, approved by the [place] Food and Drug Administration. The tests are used for clinical purposes. Billing Codes Specimen Charges Stain Charges 02564 1 84118 1 3 3:29 PM CDT DERMATOPATHOLOGY LABORATORY Embedded Images 3 3:29 PM CDT DERMATOPATHOLOGY LABORATORY Pathology/Cytolo gy TISSUE SPECIMEN FROM SKIN / Unknown 06/18/2023 3:33 AM CDT 06/20/2023 6:23 AM CDT us Ravinder Mcgarry MD LAB - PATHOLOGY/CYTOLOGY ORDER OLIVER Final Result DERMATOPATHOLOGY LABORATORY [facility] - Department of Dermatology [address], [address] [phone] documented in this encounter Visit Diagnoses Not on filedocumented in this encounter
--- OUTSIDE RECORDS SUMMARY | 2025-01-20 23:21 | XMS_ITS | Encounter Summary ---
Author Organization [facility] Address [address] [place] [address] Care Team Providers Care Environmental Designer Name Role Phone Smith Islas MD Primary Care Provider [phone] Encounter Details Date Type Department Care Team (Late st Contact Info) Description 05/29/2007 Outpatient Historical [facility] Internal Medicine [address] [address] Smith Islas MD [address] [place] [phone] Social History Tobacco Use Types Packs/Day Years Used Date Smoking Tobacco: Never Assessed Comments Unknown Sex and Gender Information Value Date Recorded Sex Assigned at Not on file Legal Sex Female 3:30 AM ENGLISH DRAWER Gender Identity Not on file Sexual Orientation [...] Body Mass Index 34.45 10/14/2003 10:30 AM ENGLISH DRAWER documented in this encounter Plan of Treatment Not on file documented as of this encounter Visit Diagnoses Not on filedocumented in this encounter Care Teams Environmental Designer Relationship Specialty Start Date End Date Smith Islas MD [address] [place] [phone] PCP - General 10/22/03 07/11/15 documented as of this encounter
--- OUTSIDE RECORDS SUMMARY | 2025-01-20 23:21 | XMS_ITS | Continuity of Care Document ---
Author Organization [facility] Address [address] [facility] [address] [place] [address] Phone Care Team Providers Care Driller Brake Lining Name Role Phone Ronald BALDWIN, Huyen Unavailable [...] affected area 0.00 - Active Mucinex Fast-Max Myqn-Oyr-Nule Throat 5 mg-10 mg-325 mg-200 mg capsule [...] Diagnoses Date Provider Providers Copied on Encounter [facility], [address], [place], [place], [address], tel:[phone] SEC Colton Rodriguez Complete Exam (chief complaint) Type 2 diabetes mellitus without complicationsV itreous degeneration, left eyePresence of intraocular lens 4 Ronald OD Huyen. [facility] [address], [address], [place], [place], [address], [place]. tel:[phone] Mainor Iqbal MD.Rand burgos Provider: Jose Angel Ponce, [address], [place], [address] . tel:[phone] [facility], [address], [place], [place], [address], [place] tel:[phone] SEC [place] Diabetic eye exam (chief complaint) Type 2 diabetes mellitus without complicationsP resence of intraocular lens 3 Maritza Walter. [facility] [address], [address], [place], [place], [address], [place]. tel:[phone] Mainor Iqbal MD.Referri ng Provider: Jose Angel Ponce, [address], [place], [address] . tel:[phone] [facility] [employer] [facility], [address], [place], [place], [address], [place] tel:[phone] SEC Briseida Godfrey Complete Exam (chief complaint) Type 2 diabetes mellitus without complicationsP resence of intraocular lensDrusen (degenerative) of macula, bilateral Nov- 2 Maritza Walter. [facility] [address], [address], [place], [place], [address], [place]. tel:[phone] Mainor Iqbal MD.Referri ng Provider: Jose Angel Ponce, [facility] [address], [place], [address] . tel:[phone] Office/outpa tient Visit, Est [facility], [address], [place], [place], [address], [place] tel:[phone] SEC Briseida N [place] Complete Exam (chief complaint) Type 2 diabetes mellitus without complicationsP resence of intraocular lens Mar-1 5-202 1 Garrison Jose Angel. [facility] [address], [address], [place], [place], [address], [place]. tel:[phone] Specialist : Mainor Iqbal MD, [address] [facility] [address] [place], [address]. tel:[phone] erring Provider: Jose Angel Ponce, [facility] [address], [place], [address] . tel:[phone] [facility], [facility] [address], [place], [place], [address], [place] tel:[phone] SEC Briseida N [place] Complete Exam (chief complaint) Type 2 diabetes mellitus without complicationsP resence of intraocular lensEpiphora due to insufficient drainage, bilateral Sep-1 4-202 0 Maritza Jose Angel. [facility] [address], [address], [place], [place], [address], [place]. tel:[phone] Mainor Iqbal MD.Referri ng Provider: Jenifer Funk MD, 4 [facility] [address], [address]. tel:[phone] [facility], [facility] [address], [place], [place], [address], [place] tel:[phone] SEC Briseida N [place]berg[place] diabetic eye exam (chief complaint) Type 2 diabetes mellitus without complicationsP resence of intraocular lens Sep-0 9-201 9 Garrison Jose Angel. [address], [address], [place], [place], [address], [place]. tel:[phone] Mainor Iqbal MD.Referri ng Provider: Jenifer Funk MD, 4 [facility] [address], [place], [address]. tel:[phone] [facility], [address] [place] [address] [address], [place], [place], [address], [place] tel:[phone] SEC [place] No Information 9 Garrison Jose Angel. [address] [place] [address] [facility], [address], [place], [place], [address], [place]. tel:[phone] [facility], [address] [place] [address] [address], [place], [place], [address], [place] tel:[phone] SEC Briseida N [place] Complete Exam (chief complaint) Type 2 diabetes mellitus without complicationsP resence of intraocular lens Maritza Jose Angel. [address] [place] [address], [address], [place], [place], [address], [place]. tel:[phone] Specialist : Mainor Iqbal MD, [address] [facility] [address] [address] [place], [address]. tel:[phone] erring Provider: Jenifer Funk MD, 4 [facility] [address], [place], [address]. tel:[phone] [facility], [address] [place] [address] [address], [place], [place], [address], [place] tel:[phone] SEC [place] No Information 8 Maritza Jose Angel. [address] [place] [address], [address], [place], [place], [address], [place]. tel:[phone] Specialist : Mainor Iqbal MD, [address] [facility] [address] [place], [address]. tel:[phone] Office/outpa tient Visit, Est [facility], [address] [place] [address], [place], [place], [address], [place] tel:[phone] SEC Briseida N [place] diabetic eye exam (chief complaint) Type 2 diabetes mellitus without complicationsL rosi term (current) use of oral hypoglycemic drugsPresence of intraocular lensDrusen (degenerative) of macula, bilateral 7 Garrison Jose Angel. [address], [address], [place], [place], [address], [place]. tel:[phone] Referring Provider: Jenifer Funk MD, [address] [facility] [address], [place], [address]. tel:[phone] [facility] [employer] [facility], [address], [place], [place], [address], [place] tel:[phone] SEC Briseida N [place] No Information 7 Garrison Jose Angel. [address], [address], [place], [place], [address], [place]. tel:[phone] [employer] [facility], [address], [place], [place], [address], [place] tel:[phone] SEC Briseida N [place] Diabetic eye exam (chief complaint) No Information 6 Garrison Jose Angel. [address], [address], [place], [place], [address], [place]. tel:[phone] Referring Provider: Jenifer Funk MD, [address] [facility] [address], [place], [address]. tel:[phone] [employer] [facility], [address] [place], [place], [place], [address], [place] tel:[phone] SEC Briseida N [place] No Information 6 Maritza Jose Angel. [address], [address], [place], [place], [address], [place]. tel:[phone] Office/outpa tient Visit, Est [facility], [address] [place] [address], [place], [place], [address], [place] tel:[phone] SEC [place] diabetic exam (chief complaint) No Information 5 Maritza Jose Angel. [address] [place] [facility], [address], [place], [place], [address], [place]. tel:[phone] Referring Provider: Jenifer Funk MD, 4 [facility] [address], [place], [address]. tel:[phone] [facility], [address] [place] [address], [place], [place], [address], [place] tel:[phone] SEC Briseida N [place] Complete Eye Exam (chief complaint) No Information 5 Garrison Jose Angel. [address] [place] [facility], [address], [place], [place], [address], [place]. tel:[phone] Referring Provider: Jenifer Funk MD, 4 [facility] [address], [place], [address]. tel:[phone] [facility], [address], [place], [place], [address], [place] tel:[phone] SEC Briseida N [place] No Information 4 Sepideh Huerta. [address] [facility], [address], [place], [place], [address], [place]. tel:[phone] [facility], [address] [place] [address], [place], [place], [address], [place] [phone] SEC [place] No Information 4 Garrison Jose Angel. [address], [address], [place], [place], [address], [place]. tel:[phone] Referring Provider: Smith Islas MD M, [address] [place] [address] [address], [place], [address]. tel:[phone] Office/outpa tient Visit, Est [facility], [address] [place] [address], [place], [place], [address], [place] [phone] SEC [place] No Information Nov- 7 4 Maritza Walter. [address], [address], [place], [place], [address], [place]. tel:[phone] Referring Provider: Jose Angel Ponce, [address], [place], [address] . tel:[phone] [facility], [address] [place] [address], [place], [place], [address], [place] [phone] SEC [place] No Information 6 3 Maritza Walter. [address], [address], [place], [place], [address], [place]. tel:[phone] Referring Provider: Jose Angel Ponce, [address], [place], [address] . tel:[phone] [facility], [address] [place] [address], [place], [place], [address], [place] tel:[phone] SEC Briseida N [place] No Information 0 201 3 Sepideh Huerta. [address] [facility], [address], [place], [place], [address], [place]. tel:[phone] Referring Provider: Jose Angel Ponce, [address], [place], [address] . tel:[phone] [facility] [employer] [facility], [address] [place] [address], [place], [place], [address], [place] tel:[phone] [facility] [place] No Information Sep-0 3-201 3 Maritza Walter. [address], [address], [place], [place], [address], [place]. tel:[phone] Referring Provider: Jose Angel Maritza A, [address], [place], [address] . tel:[phone] [facility], [address] [place] [address], [place], [place], [address], tel:[phone] SEC [place] No Information 0 3 Maritza Jose Angel. [facility] [address], [address], [place], [place], [address], [place]. tel:[phone] Referring Provider: Jose Angel Garrison A, [facility] [address], [place], [address] . tel:[phone] [facility], [address] [place] [address], [place], [place], [address], [place] tel:[phone] SEC [place] No Information 2 Maritza Jose Angel. [facility] [address], [address], [place], [place], [address], [place]. tel:[phone] [facility], [address] [place] [address], [place], [place], [address], [place] tel:[phone] SEC [place] No Information 2 Maritza Jose Angel. [facility] [address], [address], [place], [place], [address], [place]. tel:[phone] [facility], [address] [place], [place], [place], [address], [place] tel:[phone] SEC [employer] [place] [employer] No Information 0 2 Maritza Jose Angel. [facility] [address], [address], [place], [place], [address], [place]. tel:[phone] [facility], [address] [place] [address], [place], [place], [address], [place] tel:[phone] SEC [place] No Information 0 7-201 1 Maritza Walter. [address], [address], [place], [place], [address], . tel:[phone] [facility] [employer] [facility], [address], [place], [place], [address], tel:[phone] SEC Briseida N [place] No Information 2 2200 8 Maritza Walter. [address], [address], [place], [place], [address], [place]. tel:[phone] Referring Provider: Jose Angel Ponce, [facility] [address], [place], [address] . tel:[phone] [employer] [facility], [address], [place], [place], [address], tel:[phone] SEC Briseida N [place] No Information 0 6200 7 Maritza Walter. [address], [address], [place], [place], [address], [place]. tel:[phone] [employer] [facility], [address], [place], [place], [address], tel:[phone] SEC Briseida N [place] No Information 5200 7 Maritza Jose Angel. [address], [address], [place], [place], [address], [place]. tel:[phone] Family History Family Member Type Diagnosis Age At Onset Mother and Grandmoth Problem (finding) Diabetes mellit Payers Payer name Insurance type Covered constitution party ID Davekimberley duggan(s) Aetna Mdcr Gold Adv Prime [place] [id number] Social History Type Description Quantity Date Captured [...] eye. 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 [...]
--- OUTSIDE RECORDS SUMMARY | 2025-01-20 23:21 | XMS_ITS | Encounter Summary ---
Author Organization [employer] Address 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
--- OUTSIDE RECORDS SUMMARY | 2025-01-20 23:21 | XMS_ITS | Encounter Summary ---
Author Organization [facility] Address 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
--- OUTSIDE RECORDS SUMMARY | 2025-01-20 23:21 | XMS_ITS | Encounter Summary ---
Author Organization [employer] Address 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
--- OUTSIDE RECORDS SUMMARY | 2025-01-20 23:21 | XMS_ITS ---
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 She wants, we have two swine extension field specialist in our group if it is [...] 11/07/2017 Assessment & Plan (09/27/2020 2:05 PM PASTRY MIXER): Not well controlled, patient weight is stable [...] therapy Assessment & Plan (10/25/2020 2:09 PM PASTRY MIXER): Patient is better tolerating Januvia, will continue current dose and check a1c today Assessment & Plan (09/27/2020 2:03 PM PASTRY MIXER): Does not want to check a1c today -unknown control, patient had high carbohydrate meals during holiday season -cannot tolerate metformin 2/2 diarrhea, would like to try a different medication -will prescribe Januvia, and recheck blood sugars in 1 month to evaluate response to new therapy Assessment & Plan (08/18/2020 12:44 PM PASTRY MIXER): Stable, well controlled, will continue emphaglifozin-metformin combo pill and check A1c today Assessment & Plan (05/10/2018 8:58 AM CDT): Continue current treatment plan. Foot care discussed. 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 -continue to monitor aspatient does say she feels exhausted all of the time. Hyperlipidemia 10/26/2014 Overview (12/29/2016): Hyperlipidemia Assessment & Plan (08/18/2020 12:43 PM PASTRY MIXER): Stable, well controlled, continue atorvastatin 80 mg Essential hypertension 10/26/2014 Overview (12/29/2016): Essential hypertension Assessment & Plan (10/25/2020 2:14 PM PASTRY MIXER): Blood pressure is well controlled, no signs [...] measurement Assessment & Plan (10/25/2020 2:14 PM PASTRY MIXER): Will check TSH today, patient reprots she feels tired all of the time, but does not have any other symptoms of hypo or hyper-thyroidism. Assessment & Plan (08/18/2020 12:44 PM PASTRY MIXER): Stable, no signs or symptoms of hypo [...] depression Assessment & Plan (10/25/2020 2:12 PM PASTRY MIXER): Improving, patient has started sertraline again, feels better, mood is improving. Assessment & Plan (09/27/2020 2:04 PM PASTRY MIXER): Discussed with patient risk of GI bleeding combination of NSAIDs and sertraline, that likely occurs with all SSRIs Patient prefers emma continue with duloexetine -patient to work on some lifestyle changes for weight loss, which can also help with mood such as get out and exercise more Assessment & Plan (08/18/2020 12:48 PM PASTRY MIXER): Patient is stress related to caring for and elderly mother Unable to travel, and limited social interactions due to COVID-19 He constipation, will continue Cymbalta 60 mg Continue to follow with patient to evaluate response to therapy Osteoarthritis 10/12/2003 Assessment & Plan (10/25/2020 2:12 PM PASTRY MIXER): Not well controlled, continues to have pain [...]
--- OUTSIDE RECORDS SUMMARY | 2025-01-20 23:21 | XMS_ITS | Encounter Summary ---
Author Organization [facility] Address 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 [address] D.O.B: 1945 SSN: [id number] Parent/Guardian if applicable: Patient Insurance: [employer] Policy#: [id number] Group #: Best To Call : [phone] Best Time to Call : ANYTIME. May We Leave Message At That Number : YES, LEAVE MESSAGE. Referring to: GENERAL SURGERY Dr. Emma Brooke ph: [phone] fax: [phone]. Dr. Noelle Caceres ph: [phone] fax [phone]. Reason for referral: pain in left breast ORDERING PHYSICIAN : BECKA ESCOBEDO MD PRIORITY OF REFERRAL: AT PATIENT'S CONVENIENCE. OFFICE WELFARE VISITOR & PHONE: Zara Linares C FOR SCHEDULING USE ONLY FIRST ATTEMPT Date:NOV 14, 2007 Bora Steen 10:55 a Spoke with Patient. pt will need to bring xrays and films with her to the appt. APPOINTMENT DATE : 11/18/2007 ( 12:[address] Brooke) LT 11/14/07 10:57 am Referral number: [facility] NN ligotm 11/14/2007 10:58 a [...] REFERRAL: GENERAL SURGERY Dr. Emma Brooke ph: [phone] fax: [phone]. Dr. Noelle Caceres ph: [phone] fax [phone]. Patient Education: The patient was allowed to ask questions to stated satisfaction. RETURN VISIT : Instructed to call if not improving. Electronically Signed by: Becka Escobedo MD on Tuesday, November 13, 2007 documented in this encounter Plan of Treatment Not on file documented as of this encounter Visit Diagnoses Not on filedocumented in this encounter Care Teams Senior Solutions Workflow Consultant Relationship Specialty Start Date End Date Becka Escobedo MD [address] [place] [phone] PCP - General 10/22/03 07/11/15 documented as of this encounter
--- OUTSIDE RECORDS SUMMARY | 2025-01-20 23:21 | XMS_ITS | Encounter Summary ---
Author Organization [facility] Address [address] [place] [address] Care Team Providers Care Ice Bag Assembler Name Role Phone Becka Escobedo MD Primary Care Provider [phone] Encounter Details Date Type Department Care Team (Latest Contact Info) Description 03/11/2008 Outpatient Historical [facility] Rebel Swann MD [address] [place] [address] Lumbago; Degeneration of Lumbar or Lumbosacral Intervertebral Disc; Arthrodesis Status Social History Tobacco Use Types Packs/Day Years Used Date Smoking Tobacco: Former Alcohol Use Standard Drinks/Week Comments No 0 (1 standard drink = 0.6 oz pur e alcohol) Comments No Sex and Gender Information Value Date Recorded Sex Assigned at Not on file 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 [place], [place] [address] Admit Date: 03/11/2008 M[place]RIS STOKES Sex: F Admit Prov: REBEL SWANN Date: 1945 Primary Care Prov: BECKA ESCOBEDO CMRN: [id number] Room: [facility]: [address] [place] [address] IMAGING SERVICES Ordering Prov: N/A Interpretation LUMBAR [...] status documented in this encounter Care Teams Ice Bag Assembler Relationship Specialty Start Date End Date Becka Escobedo MD [address] [place] [address] PCP - General 10/22/03 07/11/15 documented as of this encounter
--- OUTSIDE RECORDS SUMMARY | 2025-01-20 23:21 | XMS_ITS | CONTINUITY OF CARE DOCUMENT ---
Author Name héctor anaya Address Unknown Organization [facility] Address [address] [place] [address] Phone [phone] Care Team Providers Care Soil Conservation Technician Name Role Phone Trini SAENZ, Otto Unavailable [phone] Otto Feliz MD Unavailable [phone] INSURANCE PROVIDERS Payer name Policy type / Coverage type [place] [employer] ID [id number]
--- OUTSIDE RECORDS SUMMARY | 2025-01-20 23:21 | XMS_ITS | Encounter Summary ---
Author Organization [facility] Address [address] [place] [address] Care Team Providers Care Video Production Intern Name Role Phone Smith Islas MD Primary Care Provider [phone] Encounter Details Date Type Department Care Team (Latest Contact Info) Description 10/22/2003 Inpatient Historical [facility] Davonte Bermudez MD [address] [place] [address] SPONDYLOLISTHESIS (Primary Dx) Social History Tobacco Use Types Packs/Day Years Used Date Smoking Tobacco: Never Assessed Comments Unknown Sex and Gender Information Value Date Recorded Sex Assigned at Not on file Legal Sex Female 3:30 AM GROOVER RUNNER Gender Identity Not on file Sexual Orientation Not on file documented as of this encounter Plan of Treatment Not on file documented as of this encounter Visit Diagnoses Diagnosis Congenital spondylolisthesis- Primary documented in this encounter Care Teams Video Production Intern Relationship Specialty Start Date End Date Smith Islas MD [address] [place] [address] [address] [place] [address] PCP - General 10/22/03 07/11/15 documented as of this encounter
--- OUTSIDE RECORDS SUMMARY | 2025-01-20 23:21 | XMS_ITS | Encounter Summary ---
Author Organization [facility] Address [address] [place] [address] Care Team Providers Care Physical Damage Appraiser Name Role Phone Becka Escobedo MD Primary Care Provider [phone] Encounter Details Date Type Department Care Team (Late st Contact Info) Description 12/30/2007 Outpatient Historical [facility] Emma Douglas MD [address] [place] [address] [address] [address] Lump or Mass in Breast Social History Tobacco Use Types Packs/Day Years Used Date Smoking Tobacco: Never Assessed Comments Unknown Sex and Gender Information Value Date Recorded Sex Assigned at Not on file Legal Sex Female 3:30 AM PLAN NURSE Gender Identity Not on file Sexual Orientation [...] AM CDT Narrative 12/30/2007 11:35 AM CDT [facility] [address] [place], [place] [address] Admit Date: 12/30/2007 TIGRE STOKESDEANNE Diaz Sex: F Admit Prov: EMMA JOSEPH Date: 1945 Primary Care Prov: BECKA ESCOBEDO CMRN: [id number] Room: [facility] N: [id number] IMAGING SERVICES Ordering Prov: EMMA JOSEPH Accession Number: [id number] Interpretation Left diagnostic digital mammograms with computer-assisted [...] Procedure Note Car Albright MD - 12/30/[address] [address] Admit Date: 12/30/2007 MORRIS STOKES Sex: F Admit Prov: EMMA JOSEPH Date: 1945 Primary Care Prov: BECKA ESCOBEDO CMRN: [id number] Room: Kris SSN: [id number] IMAGING SERVICES Ordering Prov: EMMA JOSEPH Interpretation [...] AM CDT Narrative 12/30/2007 11:35 AM CDT [address] [address] Admit Date: 12/30/2007 MORRIS STOKES Sex: F Admit Prov: ARCELIA JOSEPHSA Date: 1945 Primary Care Prov: BECKA ESCOBEDO CMRN: [id number] Room: [facility] SSN: [id number] IMAGING SERVICES Ordering Prov: EMMA JOSEPH Accession Number: [id number] Interpretation Left diagnostic digital mammograms with computer-assisted [...] Procedure Note Car Albright MD - 12/30/2007 [facility] [address] [place], [place] [address] Admit Date: 12/30/2007 MORRIS STOKES Sex: F Admit Prov: EMMA JOSEPH Date: 1945 Primary Care Prov: BECKA ESCOBEDO Viral CMRN: [id number] Room: [facility] SSN: [id number] IMAGING SERVICES Ordering Prov: EMMA JOSEPH Interpretation [...] breast documented in this encounter Care Teams Physical Damage Appraiser Relationship Specialty Start Date End Date Becka Escobedo MD [address] [place] [address] PCP - General 10/22/03 07/11/15 documented as of this encounter
--- OUTSIDE RECORDS SUMMARY | 2025-01-20 23:21 | XMS_ITS | Encounter Summary ---
Author Organization [facility] Address [address] [place] [address] Care Team Providers Care Steward/Stewardess Deck Name Role Phone Smith Islas MD Primary Care Provider [phone] Encounter Details Date Type Department Care Team (Late st Contact Info) Description 05/31/2007 Outpatient Historical [facility] Internal Medicine [address] [phone] Smith Islas MD [address] [place] [phone] Social History Tobacco Use Types Packs/Day Years Used Date Smoking Tobacco: Never Assessed Comments Unknown Sex and Gender Information Value Date Recorded Sex Assigned at Not on file Legal Sex Female 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
--- OUTSIDE RECORDS SUMMARY | 2025-01-20 23:21 | XMS_ITS | Encounter Summary ---
Author Organization [facility] Address [address] [place] [address] Care Team Providers Care Mid Level Project Manager Name Role Phone Smith Islas MD Primary Care Provider [phone] Encounter Details Date Type Department Care Team (Late st Contact Info) Description 06/19/2007 Outpatient Historical [facility] Internal Medicine [address] [address] Smith Islas MD [address] [place] [address] Social History Tobacco Use Types Packs/Day Years Used Date Smoking Tobacco: Never Assessed Comments Unknown Sex and Gender Information Value Date Recorded Sex Assigned at Not on file Legal Sex Female 3: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
--- OUTSIDE RECORDS SUMMARY | 2025-01-20 23:21 | XMS_ITS | Encounter Summary ---
Author Organization [facility] Address [address] [place] [address] Care Team Providers Care Die Storage Worker Name Role Phone Smith Islas MD Primary Care Provider [phone] Encounter Details Date Type Department Care Team (Late st Contact Info) Description 07/24/2007 Orders Only [facility] Internal Medicine [address] [address] Smith Islas MD [address] [place] [address] Social History Tobacco Use Types Packs/Day Years Used Date Smoking Tobacco: Never Assessed Comments Unknown Sex and Gender Information Value Date Recorded Sex Assigned at Not on file Legal Sex Female 3:30 AM SPICE CLEANER Gender Identity Not on file Sexual [...] pos tinels left wrist NEUROLOGIC: CRANIAL NERVES: primer expeditor and drier II-XII grossly intact. 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 discussed, mammo ok 244.9-HYPOTHYROIDISM cont med 250.00-DM II CONTROLLED recheck lab, cont diet, enc exercise 272.4-HYPERLIPIDEMIA cont med 281.8-OTHER DEFICIENCY ANEMIAS recheck lb 311-DEPRESSION try cymbalta 356.9-PERIPHERAL NEUROPATHY worse, try cymbalta, consider try gabapentin again, check b12, suspect multifactorial, pt wants to wait on emg testing LAB ORDERS: Order number: [id number] Test Ordered: VITAMIN B12 LEVEL 1719 461.9-SINUSITIS [...] on filedocumented in this encounter Care Teams Die Storage Worker Relationship Specialty Start Date End Date Smith Islas MD [address] [place] [phone] PCP - General 10/22/03 07/11/15 documented as of this encounter
--- OUTSIDE RECORDS SUMMARY | 2025-01-20 23:21 | XMS_ITS | Encounter Summary ---
Author Organization [facility] Address [address] [place] [address] Care Team Providers Care Business Coordinator Name Role Phone Smith Islas MD Primary Care Provider [phone] Encounter Details Date Type Department Care Team (Late st Contact Info) Description 11/13/2007 Outpatient 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
--- OUTSIDE RECORDS SUMMARY | 2025-01-20 23:21 | XMS_ITS | Encounter Summary ---
Author Organization [facility] Address [address] [place] [address] Care Team Providers Care Community Sports Coordinator Name Role Phone Radhika Arredondo MD Primary Care Provider [phone] Torri Johnson PT Unavailable Unavail able Dustin Tim PT Unavailable Unavailab Jong Brunson BURNER MACHINE OPERATOR Unavailable Unavaila Moriah Zapien NP Primary Care Provider [phone] Bradley Rubin MD Primary Care Provider [phone] Miscellaneous, Not In File Unavailable Unava ilTano Cates LCSW Unavailable UnavailMaryam Sargent RN Unavailable [phone] Brijesh Cardenas MD Primary Care Provider [phone] Encounter Details Date Type Department Care Team (Late st Contact Info) Description 10/14/2019 Telephone [place] [id number] [address] Noelle Robison RN Social History [...] on file Legal Sex Female 6:18 PM PHARMACY OPERATIONS SPECIALIST Gender Identity Not on file [...] COVID: Suspected 10/26/2023 10/26/2023 10/26/2023 7:11 PM PHARMACY OPERATIONS SPECIALIST documented as of this encounter Care Teams Community Sports Coordinator Relationship Specialty Start Date End Date Radhika Arredondo MD [address] [facility] [address], [place] [address] PCP - General Internal Medicine 10/01/17 11/26/19 Moriah Rodriguez NP PCP - General 11/27/19 08/15/20 Bradley Rubin MD [address] [place] [address] PCP - General Family Medicine 08/16/20 07/11/22 Brijesh Cardenas MD [address] [place] [address] [address] [place] [address] PCP - General Family Medicine 07/12/22 Torri Johnson, PT Physical Therapist Physical Therapy 04/18/18 Dustin Tim, PT Physical Therapist Physical Therapy 04/26/18 Jong Reeves, BURNER MACHINE OPERATOR Physical Therapist Physical Therapy 05/08/18 Miscellaneous, Not In File 03/17/21 Tano Purcell LCSW Sagger Soak 03/22/21 01/17/22 Maryam Cline, YAMILA [address] [place] [address] [address] Evidence Technician 07/04/21 07/27/21 documented as of this encounter
--- OUTSIDE RECORDS SUMMARY | 2025-01-20 23:21 | XMS_ITS | Encounter Summary ---
Author Organization [facility] Address [address] [place] [address] Care Team Providers Care Photographer Still Name Role Phone Smith Islas MD Primary Care Provider [phone] Encounter Details Date Type Department Care Team (Late st Contact Info) Description 07/24/2007 Outpatient Historical [facility] Internal Medicine [address] [address] Smith Islas MD [address] [place] [phone] Social History Tobacco Use Types Packs/Day Years Used Date Smoking Tobacco: Never Assessed Comments Unknown Sex and Gender Information Value Date Recorded Sex Assigned at Not on file Legal Sex Female 3:30 AM WINDSURFING INSTRUCTOR Gender Identity Not on file Sexual [...] Body Mass Index 34.95 10/14/2003 10:30 AM WINDSURFING INSTRUCTOR documented in this encounter Plan of Treatment Not on file documented as of this encounter Visit Diagnoses Not on filedocumented in this encounter Care Teams Photographer Still Relationship Specialty Start Date End Date Smith Islas MD [address] [place] [phone] PCP - General 10/22/03 07/11/15 documented as of this encounter
[2025-01-20 23:26] VITALS: BP 163/82; PULSE 77; RESP 11; O2SAT 97
[2025-01-20 23:28] LABS: Prothrombin Time 13.8 Seconds (11.1-14.7)
[2025-01-20 23:29] LABS: Troponin I < 0.012 ng/mL (0.000-0.034)
[2025-01-21 00:16] VITALS: BP 147/81; PULSE 75; RESP 17; O2SAT 97
[2025-01-21 00:31] VITALS: BP 146/91; PULSE 75; RESP 13; O2SAT 94
[2025-01-21] MEDS: KETOROLAC 15 MG/ML VIAL (*BKC) IV PUSH (00:51)
[2025-01-21] MEDS: METOCLOPRAMIDE HCL INJ 10 MG/2 ML VIAL 5 MG IV PUSH (00:51)
[2025-01-21] MEDS: SODIUM CHLORIDE 0.9% IV 1,000 ML 999 ML IV CONT (00:52)
[2025-01-21 01:06] VITALS: PULSE 73
[2025-01-21 02:15] VITALS: BP 170/75; PULSE 81; RESP 15; O2SAT 97
--- OUTSIDE RECORDS SUMMARY | 2025-01-21 03:23 | XMS_ITS | Encounter Summary ---
Author Organization [facility] Address [address] [place] [address] Care Team Providers Care Ordnance Artificer Name Role Phone Smith Islas MD Primary Care Provider [phone] Encounter Details Date Type Department Care Team (Late st Contact Info) Description 02/26/2004 Outpatient Historical [facility] Internal Medicine [address] [address] Smith Islas MD [address] [place] [phone] Social History Tobacco Use Types Packs/Day Years Used Date Smoking Tobacco: Never Assessed Comments Unknown Sex and Gender Information Value Date Recorded Sex Assigned at Not on file Legal Sex Female 3:30 AM SINGING WAITER OR WAITRESS Gender Identity Not on file Sexual Orientation Not on file documented as of this encounter Plan of Treatment Not on file documented as of this encounter Visit Diagnoses Not on filedocumented in this encounter Care Teams Ordnance Artificer Relationship Specialty Start Date End Date Smith Islas MD [address] [place] [address] [address] [place] [address] PCP - General 10/22/03 07/11/15 documented as of this encounter
--- OUTSIDE RECORDS SUMMARY | 2025-01-21 03:23 | XMS_ITS | Encounter Summary ---
Author Organization [facility] Address [address] [place] [address] Care Team Providers Care Ultrasonic Seaming Machine Operator Name Role Phone Smith Islas MD Primary Care Provider [phone] Encounter Details Date Type Department Care Team (Late st Contact Info) Description 01/15/2004 Outpatient [facility] Internal Medicine [address] [address] Smith Islas MD [address] [place] [phone] Social History Tobacco Use Types Packs/Day Years Used Date Smoking Tobacco: Never Assessed Comments Unknown Sex and Gender Information Value Date Recorded Sex Assigned at Not on file Legal Sex Female 3:30 AM SPECIAL EDUCATOR Gender Identity Not on file Sexual Orientation Not on file documented as of this encounter Plan of Treatment Not on file documented as of this encounter Visit Diagnoses Not on filedocumented in this encounter Care Teams Ultrasonic Seaming Machine Operator Relationship Specialty Start Date End Date Smiht Islas MD [address] [place] [address] [address] [place] [address] PCP - General 10/22/03 07/11/15 documented as of this encounter
--- OUTSIDE RECORDS SUMMARY | 2025-01-21 03:23 | XMS_ITS | Encounter Summary ---
Author Organization [facility] Address [address] [place] [address] Care Team Providers Care Passenger Attendant Name Role Phone Smith Islas MD Primary Care Provider [phone] Encounter Details Date Type Department Care Team (Late st Contact Info) Description 09/26/2004 Outpatient Historical [facility] Internal Medicine [address] [address] Smith Islas MD [address] [place] [address] Social History Tobacco Use Types Packs/Day Years Used Date Smoking Tobacco: Never Assessed Comments Unknown Sex and Gender Information Value Date Recorded Sex Assigned at Not on file Legal Sex Female 3:30 AM RESIDENTIAL DOOR UNIT INSTALLER Gender Identity Not on file Sexual Orientation Not on file documented as of this encounter Last Filed Vital Signs Vital Sign Reading Time Taken Comments Blood Pressure 140/80 09/26/2004 4:00 PM RESIDENTIAL DOOR UNIT INSTALLER Pulse - - Temperature 36.1 C (97 F) 09/26/2004 4:00 PM RESIDENTIAL DOOR UNIT INSTALLER Respiratory Rate - - Oxygen Saturation - - Inhaled Oxygen Concentration - - Weight - - Height - - Body Mass Index - - documented in this encounter Plan of Treatment Not on file documented as of this encounter Visit Diagnoses Not on filedocumented in this encounter Care Teams Passenger Attendant Relationship Specialty Start Date End Date Smith Islas MD [address] [place] [phone] PCP - General 10/22/03 07/11/15 documented as of this encounter
--- OUTSIDE RECORDS SUMMARY | 2025-01-21 03:23 | XMS_ITS | Encounter Summary ---
Author Organization [facility] Address [address] [place] [address] Care Team Providers Care Gps Navigation Installer Name Role Phone Smith Islas MD Primary Care Provider [phone] Encounter Details Date Type Department Care Team (Late st Contact Info) Description 06/01/2006 Outpatient Historical [facility] Internal Medicine [address] [address] Smith Islas MD [address] [place] [address] Social History Tobacco Use Types Packs/Day Years Used Date Smoking Tobacco: Never Assessed Comments Unknown Sex and Gender Information Value Date Recorded Sex Assigned at Not on file Legal Sex Female 3:30 AM HOTEL SECURITY OFFICER Gender Identity Not on file Sexual [...] Body Mass Index 36.61 10/14/2003 10:30 AM HOTEL SECURITY OFFICER documented in this encounter Plan of Treatment Not on file documented as of this encounter Visit Diagnoses Not on filedocumented in this encounter Care Teams Gps Navigation Installer Relationship Specialty Start Date End Date Smith Islas MD [address] [place] [address] PCP - General 10/22/03 07/11/15 documented as of this encounter
--- OUTSIDE RECORDS SUMMARY | 2025-01-21 03:23 | XMS_ITS | Encounter Summary ---
Author Organization [facility] Address [address] [place] [address] Care Team Providers Care Audit Officer Name Role Phone Smith Islas MD Primary Care Provider [phone] Encounter Details Date Type Department Care Team (Latest Contact Info) Description 01/20/2004 Outpatient [facility] Davonte Bermudez MD [address] [facility] [address] [place] [address] ARTHRODESIS STATUS (Primary Dx) Social History Tobacco Use Types Packs/Day Years Used Date Smoking Tobacco: Never Assessed Comments Unknown Sex and Gender Information Value Date Recorded Sex Assigned at Not on file Legal Sex Female 3:30 AM FLOWER PLANTER Gender Identity Not on file Sexual Orientation Not on file documented as of this encounter Plan of Treatment Not on file documented as of this encounter Visit Diagnoses Diagnosis Arthrodesis status- Primary documented in this encounter Care Teams Audit Officer Relationship Specialty Start Date End Date Smith Islas MD [address] [place] [address] [address] [place] [phone] PCP - General 10/22/03 07/11/15 documented as of this encounter
--- OUTSIDE RECORDS SUMMARY | 2025-01-21 03:23 | XMS_ITS | Encounter Summary ---
Author Organization [facility] Address [address] [place] [address] Care Team Providers Care Ditch Rider Name Role Phone Smith Islas MD Primary Care Provider [phone] Encounter Details Date Type Department Care Team (Latest Contact Info) Description 08/07/2005 Outpatient [facility] Davonte Bermudez MD [address] 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
--- OUTSIDE RECORDS SUMMARY | 2025-01-21 03:23 | XMS_ITS | Encounter Summary ---
Author Organization [facility] Address [address] [place] [address] Care Team Providers Care Ice Plant Operator Name Role Phone Smith Islas MD Primary Care Provider [phone] Encounter Details Date Type Department Care Team (Late st Contact Info) Description 10/04/2007 Outpatient [facility] Internal Medicine [address] [address] Smith Islas MD [address] [place] [phone] Social History Tobacco Use Types Packs/Day Years Used Date Smoking Tobacco: Never Assessed Comments Unknown Sex and Gender Information Value Date Recorded Sex Assigned at Not on file Legal Sex Female 3:30 AM ENERGY ATTORNEY Gender Identity Not on file Sexual Orientation Not on file documented as of this encounter Plan of Treatment Not on file documented as of this encounter Visit Diagnoses Not on filedocumented in this encounter Care Teams Ice Plant Operator Relationship Specialty Start Date End Date Smith Islas MD [address] [place] [address] [address] [place] [address] PCP - General 10/22/03 07/11/15 documented as of this encounter
--- OUTSIDE RECORDS SUMMARY | 2025-01-21 03:23 | XMS_ITS | Encounter Summary ---
Author Organization [facility] Address [address] [place] [address] Care Team Providers Care Onboarding Specialist Name Role Phone Smith Islas MD Primary Care Provider [phone] Encounter Details Date Type Department Care Team (Late st Contact Info) Description 11/30/2006 Outpatient Historical [facility] Internal Medicine [address] [address] Smith Islas MD [address] [place] [address] Social History Tobacco Use Types Packs/Day Years Used Date Smoking Tobacco: Never Assessed Comments Unknown Sex and Gender Information Value Date Recorded Sex Assigned at Not on file Legal Sex Female 3:30 AM WELL TESTER Gender Identity Not on file Sexual Orientation Not on file documented as of this encounter Last Filed Vital Signs Vital Sign Reading Time Taken Comments Blood Pressure 120/70 11/30/2006 9:30 AM WELL TESTER Pulse - - Temperature - - Respiratory Rate - - Oxygen Saturation - - Inhaled Oxygen Concentration - - Weight 98.9 kg (218 lb) 11/30/2006 9:30 AM WELL TESTER Height - - Body Mass Index 36.28 10/14/2003 10:30 AM WELL TESTER documented in this encounter Plan of Treatment Not on file documented as of this encounter Visit Diagnoses Not on filedocumented in this encounter Care Teams Onboarding Specialist Relationship Specialty Start Date End Date Smith Islas MD [address] [place] [phone] PCP - General 10/22/03 07/11/15 documented as of this encounter
--- OUTSIDE RECORDS SUMMARY | 2025-01-21 03:23 | XMS_ITS | Encounter Summary ---
Author Organization [facility] Address [address] [place] [address] Care Team Providers Care Photographic Processor Name Role Phone Smith Islas MD Primary Care Provider [phone] Encounter Details Date Type Department Care Team (Late st Contact Info) Description 11/03/2005 Outpatient [facility] Internal Medicine [address] [address] Smith Islas MD [address] [place] [phone] Social History Tobacco Use Types Packs/Day Years Used Date Smoking Tobacco: Never Assessed Comments Unknown Sex and Gender Information Value Date Recorded Sex Assigned at Not on file Legal Sex Female 3:30 AM SOLID STATE TESTER Gender Identity Not on file Sexual Orientation Not on file documented as of this encounter Plan of Treatment Not on file documented as of this encounter Visit Diagnoses Not on filedocumented in this encounter Care Teams Photographic Processor Relationship Specialty Start Date End Date Smith Islas MD [address] [place] [address] [address] [place] [address] PCP - General 10/22/03 07/11/15 documented as of this encounter
--- OUTSIDE RECORDS SUMMARY | 2025-01-21 03:23 | XMS_ITS | Encounter Summary ---
Author Organization [facility] Address [address] [place] [address] Care Team Providers Care Fixed Capital Clerk Name Role Phone Smith Islas MD Primary Care Provider [phone] Encounter Details Date Type Department Care Team (Late st Contact Info) Description 02/10/2009 Outpatient Historical [facility] Smith Islas MD [address] [facility] [address] [place] [address] Cough Social History Tobacco Use Types Packs/Day Years Used Date Smoking Tobacco: Former Cigarettes Q uit: 06/26/1988 Alcohol Use Standard Drinks/Week Comments No 0 (1 standard drink = 0.6 oz pur e alcohol) Comments No Sex and Gender Information Value Date Recorded Sex Assigned at Not on file Legal Sex Female 3:30 AM TAPING FOREMAN Gender Identity Not on file Sexual Orientation Not on file documented as of this encounter Plan of Treatment Not on file documented as of this encounter Visit Diagnoses Diagnosis Cough documented in this encounter Care Teams Fixed Capital Clerk Relationship Specialty Start Date End Date Smith Islas MD [address] [facility] [address] [place] [address] PCP - General 10/22/03 07/11/15 documented as of this encounter
--- OUTSIDE RECORDS SUMMARY | 2025-01-21 03:23 | XMS_ITS | Encounter Summary ---
Author Organization [facility] Address [address] [place] [address] Care Team Providers Care Machine Ii Cutter Name Role Phone Smith Islas MD Primary Care Provider [phone] Encounter Details Date Type Department Care Team (Latest Contact Info) Description 11/25/2008 Outpatient Historical [facility] LAB DRAW SITE Smith Islas MD [address] [address] DM w/o Complication Type II (CMS/HCC) Social History Tobacco Use Types Packs/Day Years Used Date Smoking Tobacco: Former Cigarettes Q uit: 06/26/1988 Alcohol Use Standard Drinks/Week Comments No 0 (1 standard drink = 0.6 oz pur e alcohol) Comments No Sex and Gender Information Value Date Recorded Sex Assigned at Not on file Legal Sex Female 3:30 AM CERTIFIED NURSE AIDE Gender Identity Not on file Sexual Orientation Not on file documented as of this encounter Plan of Treatment Not on file documented as of this encounter Visit Diagnoses Diagnosis Type II or unspecified type diabetes mellitus without mention of complication, not stated as uncontrolled documented in this encounter Care Teams Machine Ii Cutter Relationship Specialty Start Date End Date Smith Islas MD [address] [place] [address] [address] [place] [phone] PCP - General 10/22/03 07/11/15 documented as of this encounter
--- OUTSIDE RECORDS SUMMARY | 2025-01-21 03:23 | XMS_ITS | Encounter Summary ---
Author Organization [facility] Address [address] [place] [address] Care Team Providers Care Media Center Specialist Name Role Phone Smith Islas MD Primary Care Provider [phone] Encounter Details Date Type Department Care Team (Late st Contact Info) Description 08/04/2005 Outpatient Historical [facility] Internal Medicine [address] [address] Smith Islas MD [address] [place] [phone] Social History Tobacco Use Types Packs/Day Years Used Date Smoking Tobacco: Never Assessed Comments Unknown Sex and Gender Information Value Date Recorded Sex Assigned at Not on file Legal Sex Female 3:30 AM BIOMETRICS EXPERIMENTALIST Gender Identity Not on file Sexual Orientation Not on file documented as of this encounter Last Filed Vital Signs Vital Sign Reading Time Taken Comments Blood Pressure 120/80 08/04/2005 9:45 AM BIOMETRICS EXPERIMENTALIST Pulse - - Temperature - - Respiratory Rate - - Oxygen Saturation - - Inhaled Oxygen Concentration - - Weight 102.5 kg (226 lb) 08/04/2005 9:45 AM BIOMETRICS EXPERIMENTALIST Height - - Body Mass Index 37.61 10/14/2003 10:30 AM BIOMETRICS EXPERIMENTALIST documented in this encounter Plan of Treatment Not on file documented as of this encounter Visit Diagnoses Not on filedocumented in this encounter Care Teams Media Center Specialist Relationship Specialty Start Date End Date Smith Islas MD [address] [place] [phone] PCP - General 10/22/03 07/11/15 documented as of this encounter
--- OUTSIDE RECORDS SUMMARY | 2025-01-21 03:23 | XMS_ITS | Encounter Summary ---
Author Organization [facility] Address [address] [place] [address] Care Team Providers Care Lumber Handler Name Role Phone Smith Islas MD Primary Care Provider Encounter Details Date Type Department Care Team (Late st Contact Info) Description 08/04/2004 Outpatient [facility] Internal Medicine [address] [address] Smith Islas MD [address] [place] [phone] Social History Tobacco Use Types Packs/Day Years Used Date Smoking Tobacco: Never Assessed Comments Unknown Sex and Gender Information Value Date Recorded Sex Assigned at Not on file Legal Sex Female 3:30 AM PLASTERER TENDER Gender Identity Not on file Sexual Orientation Not on file documented as of this encounter Plan of Treatment Not on file documented as of this encounter Visit Diagnoses Not on filedocumented in this encounter Care Teams Lumber Handler Relationship Specialty Start Date End Date Smith Islas MD [address] [place] [address] [address] [place] [address] PCP - General 10/22/03 07/11/15 documented as of this encounter
--- OUTSIDE RECORDS SUMMARY | 2025-01-21 03:23 | XMS_ITS | Encounter Summary ---
Author Organization [employer] Address [address] [place] [address] Care Team Providers Care Channel Development Manager Name Role Phone Smith Islas MD Primary Care Provider [phone] Encounter Details Date Type Department Care Team (Latest Contact Info) Description 03/16/2004 Outpatient Historical [facility] Davonte Bermudez MD [address] [facility] [address] [place] [address] ACQ SPONDYLOLISTHESIS (Primary Dx) Social History Tobacco Use Types Packs/Day Years Used Date Smoking Tobacco: Never Assessed Comments Unknown Sex and Gender Information Value Date Recorded Sex Assigned at Not on file Legal Sex Female 3:30 AM DIRECTOR OF 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
--- OUTSIDE RECORDS SUMMARY | 2025-01-21 03:23 | XMS_ITS | Encounter Summary ---
Author Organization [facility] Address [address] [place] [address] Care Team Providers Care Pole Climber Name Role Phone Smith Islas MD Primary Care Provider [phone] Encounter Details Date Type Department Care Team (Latest Contact Info) Description 05/17/2009 Outpatient Historical [facility] LAB DRAW SITE Smith Islas MD [address] [address] DM w/o Complication Type II (CMS/HCC) Social History Tobacco Use Types Packs/Day Years Used Date Smoking Tobacco: Former Cigarettes Q uit: 06/26/1988 Alcohol Use Standard Drinks/Week Comments No 0 (1 standard drink = 0.6 oz pur e alcohol) Comments No Sex and Gender Information Value Date Recorded Sex Assigned at Not on file Legal Sex Female 3:30 AM ESCROW REPRESENTATIVE Gender Identity Not on file Sexual Orientation Not on file documented as of this encounter Plan of Treatment Not on file documented as of this encounter Visit Diagnoses Diagnosis Type II or unspecified type diabetes mellitus without mention of complication, not stated as uncontrolled documented in this encounter Care Teams Pole Climber Relationship Specialty Start Date End Date Smith Islas MD [address] [place] [address] [address] [place] [address] PCP - General 10/22/03 07/11/15 documented as of this encounter
--- OUTSIDE RECORDS SUMMARY | 2025-01-21 03:23 | XMS_ITS | Encounter Summary ---
Author Organization [facility] Address [address] [place] [address] Care Team Providers Care Technical Account Representative Name Role Phone Smith Islas MD Primary Care Provider [phone] Encounter Details Date Type Department Care Team (Late st Contact Info) Description 11/03/2005 Outpatient [facility] Internal Medicine [address] [address] Smith Islas MD [address] [place] [phone] Social History Tobacco Use Types Packs/Day Years Used Date Smoking Tobacco: Never Assessed Comments Unknown Sex and Gender Information Value Date Recorded Sex Assigned at Not on file Legal Sex Female 3:30 AM SHIPPING PACKER Gender Identity Not on file Sexual Orientation Not on file documented as of this encounter Plan of Treatment Not on file documented as of this encounter Visit Diagnoses Not on filedocumented in this encounter Care Teams Technical Account Representative Relationship Specialty Start Date End Date Smith Islas MD [address] [place] [address] [address] [place] [address] PCP - General 10/22/03 07/11/15 documented as of this encounter
--- OUTSIDE RECORDS SUMMARY | 2025-01-21 03:23 | XMS_ITS | Encounter Summary ---
Author Organization [facility] Address [address] [place] [address] Care Team Providers Care Director Database Name Role Phone Smith Islas MD Primary Care Provider Encounter Details Date Type Department Care Team (Late st Contact Info) Description 10/27/2008 Outpatient Historical [facility], Authorized P NO ADDRESS ON FILE Antione Orta MD [address] [place] [address] Abdominal Pain, Unspecified Site; Other [...] on file Legal Sex Female 3:30 AM WIDE AREA NETWORK ADMINISTRATOR Gender Identity Not on file Sexual Orientation Not on file documented as of this encounter Plan of Treatment Not on file documented as of this encounter Procedures Procedure Name Priority Date/Time Associated Diagnosis Comments LIPASE Stat 10/27/2008 7:19 AM WIDE AREA NETWORK ADMINISTRATOR AMYLASE Stat 10/27/2008 7:19 AM WIDE AREA NETWORK ADMINISTRATOR CBC WITH DIFFERENTIAL Stat 10/27/2008 6:21 AM WIDE AREA NETWORK ADMINISTRATOR COMPREHENSIVE METABOLIC PANEL Stat 10/27/2008 5:35 AM WIDE AREA NETWORK ADMINISTRATOR POC URINALYSIS DIPSTICK NON AUTOMATED Routine 10/27/2008 5:25 AM WIDE AREA NETWORK ADMINISTRATOR documented in this encounter Results * AMYLASE (10/27/2008 7:19 AM WIDE AREA NETWORK ADMINISTRATOR) [facility] AMYLASE 30 28 - 100 U/L [facility] Blood specimen (specimen) 10/27/2008 7:19 AM WIDE AREA NETWORK ADMINISTRATOR 10/27/2008 7:19 AM WIDE AREA NETWORK ADMINISTRATOR us Antione Orta MD CHEMISTRY ORDERABLES Final Resul t Performing Organization Address [facility] de Phone Number INTERFACE SYSTEM Refer to clinic/hospital department [facility] CLIA# [id number] [address] [place] [address] * LIPASE (10/27/2008 7:19 AM WIDE AREA NETWORK ADMINISTRATOR) [facility] LIPASE 33 13 - 60 U/L [facility] Blood specimen (specimen) 10/27/2008 7:19 AM WIDE AREA NETWORK ADMINISTRATOR 10/27/2008 7:19 AM WIDE AREA NETWORK ADMINISTRATOR Narrative INTERFACE SYSTEM - 10/27/2008 7:32 AM WIDE AREA NETWORK ADMINISTRATOR blood in lab [facility] us Antione Orta MD CHEMISTRY ORDERABLES Final Resul t Performing Organization Address [facility] de Phone Number INTERFACE SYSTEM Refer to clinic/hospital department [facility] CLIA# [id number] [address] [place] [address] * (ABNORMAL) CBC WITH DIFFERENTIAL (10/27/2008 6:21 AM WIDE AREA NETWORK ADMINISTRATOR) [facility] MCHC 33.2 31.5 - 35.5 % [facility] MCV 81.5(L) 82.0 - 99.0 fL [facility] PLATELETS 206 140 - 350 K/uL [facility] HEMOGLOBIN 14.8 11.8 - 14.8 g/dL [facility] RDW 13.9 11.5 - 14.5 % [facility] WBC 7.3 4.0 - 9.8 K/uL [facility] MCH 27.1(L) 27.2 - 32.6 pg [facility] MPV 10.7 9.3 - 12.4 fL [facility] HEMATOCRIT 44.6(H) 35.5 - 44.0 % [facility] RDW-STDEV 41.2 37.1 - 48.7 fL [facility] RBC 5.47(H) 3.90 - 4.90 M/uL [facility] LYMPHOCYTES 19 16 - 45 % [facility] LYMPHOCYTE ABSOLUTE 1.42 0.70 - 4.50 K/uL [facility] BASOPHILS 1 0 - 2 % [facility] BASOPHILS ABSOLUTE 0.07 0.00 - 0.20 K/uL [facility] MONOCYTES 9 3 - 13 % [facility] MONOCYTE ABSOLUTE 0.65 0.10 - 1.30 K/uL [facility] NEUTROPHILS 69 45 - 70 % [facility] NEUTROPHIL ABSOLUTE 5.08 1.90 - 7.00 K/uL [facility] EOSINOPHILS 2 0 - 7 % [facility] EOSINOPHIL ABSOLUTE 0.12 0.00 - 0.70 K/uL [facility] Blood specimen (specimen) 10/27/2008 6:21 AM WIDE AREA NETWORK ADMINISTRATOR 10/27/2008 6:21 AM WIDE AREA NETWORK ADMINISTRATOR Narrative INTERFACE SYSTEM - 10/27/2008 7:03 AM WIDE AREA NETWORK ADMINISTRATOR redraw of [phone] us Authorized P Er HEMATOLOGY ORDERABLES Edited INTERFACE SYSTEM Refer to clinic/hospital department [facility] CLIA# [id number] [address] [place] [address] * (ABNORMAL) COMPREHENSIVE METABOLIC PANEL (10/27/2008 5:35 AM WIDE AREA NETWORK ADMINISTRATOR) BILIRUBIN TOTAL 0.5 0.2 - 1.0 mg/dL [facility] CHLORIDE 104 96 - 108 mmol/L [facility] TOTAL PROTEIN 7.7 6.3 - 8.6 g/dL [facility] GLUCOSE 140(H) 65 - 99 mg/dL [facility] AST 34(H) 12 - 32 U/L [facility] Comment: Hemolyzed: Result may be falsely elevated. BUN 20 6 - 20 mg/dL [facility] CALCIUM 9.7 8.6 - 10.2 mg/dL [facility] ALBUMIN 4.4 3.4 - 4.8 g/dL [facility] POTASSIUM See note. 3.5 - 4.9 mmol/L [facility] Comment: Gross hemolysis present. Result unreliable. CO2 21(L) 22 - 30 mmol/L [facility] CREATININE 0.65 0.51 - 0.95 mg/dL [facility] ALT 22 0 - 31 U/L [facility] Comment: Hemolyzed: Result may be falsely elevated. SODIUM 137 135 - 145 mmol/L [facility] ALKALINE PHOSPHATASE 91 35 - 104 U/L [facility] GFR, >60 >=60 mL/min/1. 7 sq meter [facility] GFR >60 >=60 mL/min/1. 7 sq meter [facility] Comment: Modification of Diet in Renal Disease (MDRD) study formula. Estimated GFR rate interpretative information for both Americans and non- Americans is available on the [facility] Intranet at: [email or web address] Select: Lab Policies and Procedures Select: Reference Ranges - GFR Blood specimen (specimen) 10/27/2008 5:35 AM WIDE AREA NETWORK ADMINISTRATOR 10/27/2008 5:45 AM WIDE AREA NETWORK ADMINISTRATOR us Antione Orta MD CHEMISTRY ORDERABLES Edited Performing Organization Address [facility] Phone Number INTERFACE SYSTEM Refer to clinic/hospital department [facility] CLIA# [id number] [address] [place] [address] * POC URINALYSIS DIPSTICK NON AUTOMATED (10/27/2008 5:25 AM WIDE AREA NETWORK ADMINISTRATOR) BILIRUBIN UA Negative Negative [facility] PH UA 6.0 5.0 - 8.0 [facility] KETONES UA Negative Negative [facility] CLARITY UA Clear [facility] BLOOD UA Negative Negative [facility] PROTEIN UA Negative Negative [facility] LEUKOCYTE ESTERASE UA Negative Negative [facility] UROBILINOGEN UA 1+ (1 mg/dL) <=1 mg/dL [facility] SPECIFIC GRAVITY UA 1.030 1.001 - 1.030 [facility] GLUCOSE UA Negative Negative [facility] COLOR UA Yellow [facility] NITRITE UA Negative Negative [facility] Urine specimen (specimen) 10/27/2008 5:25 AM WIDE AREA NETWORK ADMINISTRATOR 10/27/2008 5:25 AM WIDE AREA NETWORK ADMINISTRATOR us Authorized P Er POINT OF CARE TESTING Final Resu lt Performing Organization Address [facility] de Phone Number INTERFACE SYSTEM Refer to clinic/hospital department [facility] CLIA# [id number] [address] [place] [address] documented in this encounter Visit Diagnoses Diagnosis [...] medications documented in this encounter Care Teams Director Database Relationship Specialty Start Date End Date Smith Islas MD [address] [place] [address] PCP - General 10/22/03 07/11/15 documented as of this encounter
--- OUTSIDE RECORDS SUMMARY | 2025-01-21 03:23 | XMS_ITS | Patient Health Record ---
Author Organization [facility] elizabeth Address [address] [place] [address] Care Team Providers Care Audio Specialist Name Role Phone Miranda Melendez Unavailable [phone] Reason For Referral No Information Medications Medication [...] the abdomen or thigh (rotate sites) Subcutaneous 7.59161031147113M-50 Active Sertraline HCl 100 MG Oral Active Carvedilol 25 MG Oral Act barbara Problems Problem Type SNOMED Code ICD Code Onset Dates Problem Status W/U Status Risk Notes Problem Joint pain (17453902) Pain in unspecified joint (M25.50) Active confirmed Problem Joint disorder (290095072) Joint disorder, unspecified (M25.9) Active confirmed pain Problem Backache (171311776) Dorsalgia, unspecified (M54.9) Active confirmed Plan Of Treatment No Information Insurance Providers Payer Name Payer Address Payer Phone Subscriber Number Group Number Insured Name Patient Relationship to Insured Coverage Start Date Coverage End Date DO NOT USE - use ins id # [id number] Wendy Stokes Self - patient is the insured [facility] [address] [place] [address] [id number] Stokes, Wendy Self - patient is the insured Medical (General) History Surgical History Surgery Date(Month/Year) mastectomy; 2018 Back surgery; 2018
--- OUTSIDE RECORDS SUMMARY | 2025-01-21 03:23 | XMS_ITS | Clinical Summary ---
Author Organization [facility] Address [address] [place] [address] Phone Care Team Providers Care Software Test Engineer Name Role Phone Provider, Not On File Primary Care Provider Unav ailable Social History Tobacco Use Types Packs/Day Years Used Date Smoking Tobacco: Never Assessed Comments Unknown Sex and Gender Information Value Date Recorded Sex Assigned at Not on file Legal Sex Female 1:37 PM EQUIPMENT OPERATION INSTRUCTOR Gender Identity Not on file Sexual [...] age to complete this topic Care Teams Software Test Engineer Relationship Specialty Start Date End Date Provider, Not On File [place] PCP - General 07/20/15
--- OUTSIDE RECORDS SUMMARY | 2025-01-21 03:23 | XMS_ITS | Encounter Summary ---
Author Organization [facility] Address [address] [place] [address] Care Team Providers Care Body And Frame Technician Name Role Phone Smith Islas MD Primary Care Provider [phone] Encounter Details Date Type Department Care Team (Late st Contact Info) Description 06/06/2005 Outpatient Historical [facility] Internal Medicine [address] [address] Smith Islas MD [address] [place] [address] Social History Tobacco Use Types Packs/Day Years Used Date Smoking Tobacco: Never Assessed Comments Unknown Sex and Gender Information Value Date Recorded Sex Assigned at Not on file Legal Sex Female 3:30 AM DISABILITY CASE MANAGER Gender Identity Not on file Sexual Orientation Not on file documented as of this encounter Plan of Treatment Not on file documented as of this encounter Visit Diagnoses Not on filedocumented in this encounter Care Teams Body And Frame Technician Relationship Specialty Start Date End Date Smith Islas MD [address] [place] [address] [address] [place] [address] PCP - General 10/22/03 07/11/15 documented as of this encounter
--- OUTSIDE RECORDS SUMMARY | 2025-01-21 03:23 | XMS_ITS | Encounter Summary ---
Author Organization [facility] Address [address] [place] [address] Care Team Providers Care Cone Operator Name Role Phone Smith Islas MD Primary Care Provider [phone] Encounter Details Date Type Department Care Team (Late st Contact Info) Description 10/04/2007 Outpatient [facility] [address] Internal Medicine [address] [address] Smith Islas MD [address] [place] [phone] Social History Tobacco Use Types Packs/Day Years Used Date Smoking Tobacco: Never Assessed Comments Unknown Sex and Gender Information Value Date Recorded Sex Assigned at Not on file Legal Sex Female 3:30 AM MEDICAL STENOGRAPHER Gender Identity Not on file Sexual Orientation Not on file documented as of this encounter Plan of Treatment Not on file documented as of this encounter Visit Diagnoses Not on filedocumented in this encounter Care Teams Cone Operator Relationship Specialty Start Date End Date Smith Islas MD [address] [place] [address] [address] [place] [address] PCP - General 10/22/03 07/11/15 documented as of this encounter
--- OUTSIDE RECORDS SUMMARY | 2025-01-21 03:23 | XMS_ITS | Encounter Summary ---
Author Organization [facility] Address [address] [place] [address] Care Team Providers Care Insurance Account Assistant Name Role Phone Smith Islas MD Primary Care Provider [phone] Encounter Details Date Type Department Care Team (Late st Contact Info) Description 04/09/2006 Outpatient Historical [facility] Internal Medicine [address] [address] Smith Islas MD [address] [place] [phone] Social History Tobacco Use Types Packs/Day Years Used Date Smoking Tobacco: Never Assessed Comments Unknown Sex and Gender Information Value Date Recorded Sex Assigned at Not on file Legal Sex Female 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
--- OUTSIDE RECORDS SUMMARY | 2025-01-21 03:23 | XMS_ITS | Encounter Summary ---
Author Organization [facility] Address [address] [place] [address] Care Team Providers Care Poultry Hatchery Laborer Name Role Phone Becka Escobedo MD Primary Care Provider [phone] Encounter Details Date Type Department Care Team (Late st Contact Info) Description 08/20/2007 Orders Only [facility] Internal Medicine [address] [address] Becka Escobedo MD [address] [place] [phone] Social History Tobacco Use Types Packs/Day Years Used Date Smoking Tobacco: Never Assessed Comments Unknown Sex and Gender Information Value Date Recorded Sex Assigned at Not on file Legal Sex Female 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 [address] D.O.B: 1945 SSN: [id number] Parent/Guardian if applicable: Patient Insurance: [employer] Policy#: [id number] Group #: Best To Call : [phone] Best Time to Call : ANYTIME. May We Leave Message At That Number : YES, LEAVE MESSAGE. Referring to: ORTHOPEDICS Adrian Roth ph: [phone] fax: [phone]. PHYSICAL THERAPY/REHAB [facility] PH :[phone] Reason for referral: wrist pain, back pain and shoulder pain ORDERING PHYSICIAN : BECKA ESCOBEDO MD PRIORITY OF REFERRAL: AT PATIENT'S CONVENIENCE. OFFICE BUSINESS APPLICATIONS SPECIALIST & PHONE: Zara Linares C FOR SCHEDULING USE ONLY FIRST ATTEMPT Date:AUG 21, 2007 Anisha Clark L 09:59 a Spoke with Patient. had to nicole [facility] also faxed referral to [facility] as they schedule their own. pt will susy nix back with appt dates APPOINTMENT DATE : 08/26/2007 APPOINTMENT DATE : 08/22/2007 ( Physical therapy) 08/21/07 03:58 pm Referral number: Personal Style Finder [employer] NN * Becka Escobedo MD [...] shoulder--reassess. SPECIALTY REFERRAL: ORTHOPEDICS Adrian Roth. ph: [phone] fax: [phone].wrist pain PHYSICAL THERAPY/REHAB [facility]--wrist ,back , shoulder pacheco RETURN VISIT : Instructed to call if not improving. Electronically Signed by: Becka Escobedo MD on Monday, August 20, 2007 documented in this encounter Plan of Treatment Not on file documented as of this encounter Visit Diagnoses Not on filedocumented in this encounter Care Teams Poultry Hatchery Laborer Relationship Specialty Start Date End Date Becka Escobedo MD [address] [place] [phone] PCP - General 10/22/03 07/11/15 documented as of this encounter
--- OUTSIDE RECORDS SUMMARY | 2025-01-21 03:23 | XMS_ITS | Encounter Summary ---
Author Organization [facility] Address [address] [place] [address] Care Team Providers Care Claim Inspector Name Role Phone Smith Islas MD Primary Care Provider [phone] Encounter Details Date Type Department Care Team (Late st Contact Info) Description 03/02/2006 Outpatient Historical [facility] Internal Medicine [address] [address] Smith Islas MD [address] [place] [phone] Social History Tobacco Use Types Packs/Day Years Used Date Smoking Tobacco: Never Assessed Comments Unknown Sex and Gender Information Value Date Recorded Sex Assigned at Not on file Legal Sex Female 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
--- OUTSIDE RECORDS SUMMARY | 2025-01-21 03:23 | XMS_ITS | Encounter Summary ---
Author Organization [facility] Address [address] [place] [address] Care Team Providers Care Auto Hauler Name Role Phone Smith Islas MD Primary Care Provider [phone] Encounter Details Date Type Department Care Team (Late st Contact Info) Description 08/07/2007 Outpatient [facility] Internal Medicine [address] [address] Smith Islas MD [address] [place] [phone] Social History Tobacco Use Types Packs/Day Years Used Date Smoking Tobacco: Never Assessed Comments Unknown Sex and Gender Information Value Date Recorded Sex Assigned at Not on file Legal Sex Female 3:30 AM BUSINESS SOLUTIONS ANALYST Gender Identity Not on file Sexual Orientation Not on file documented as of this encounter Plan of Treatment Not on file documented as of this encounter Visit Diagnoses Not on filedocumented in this encounter Care Teams Auto Hauler Relationship Specialty Start Date End Date Smith Islas MD [address] [place] [address] [address] [place] [address] PCP - General 10/22/03 07/11/15 documented as of this encounter
--- OUTSIDE RECORDS SUMMARY | 2025-01-21 03:23 | XMS_ITS | Encounter Summary ---
Author Organization [facility] Address [address] [place] [address] Care Team Providers Care Non Destructive Evaluation Specialist Name Role Phone Smith Islas MD Primary Care Provider [phone] Encounter Details Date Type Department Care Team (Late st Contact Info) Description 02/26/2004 Outpatient Historical [facility] Internal Medicine [address] [address] Smith Islas MD [address] [place] [phone] Social History Tobacco Use Types Packs/Day Years Used Date Smoking Tobacco: Never Assessed Comments Unknown Sex and Gender Information Value Date Recorded Sex Assigned at Not on file Legal Sex Female 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
--- OUTSIDE RECORDS SUMMARY | 2025-01-21 03:23 | XMS_ITS | Encounter Summary ---
Author Organization [facility] Address [address] [place] [address] Care Team Providers Care Wood Drill Operator Name Role Phone Smith Islas MD Primary Care Provider [phone] Encounter Details Date Type Department Care Team (Late st Contact Info) Description 12/23/2003 Outpatient Historical [facility] Internal Medicine [address] [address] Smith Islas MD [address] [place] [phone] Social History Tobacco Use Types Packs/Day Years Used Date Smoking Tobacco: Never Assessed Comments Unknown Sex and Gender Information Value Date Recorded Sex Assigned at Not on file Legal Sex Female 3:30 AM PATIENT OBSERVATION ASSISTANT Gender Identity Not on file Sexual Orientation Not on file documented as of this encounter Last Filed Vital Signs Vital Sign Reading Time Taken Comments Blood Pressure 162/90 12/23/2003 11:00 AM PATIENT OBSERVATION ASSISTANT Pulse - - Temperature 36.3 C (97.3 F) 12/23/2003 11:00 AM PATIENT OBSERVATION ASSISTANT Respiratory Rate - - Oxygen Saturation - - Inhaled Oxygen Concentration - - Weight 96.2 kg (212 lb) 12/23/2003 11:00 AM PATIENT OBSERVATION ASSISTANT Height - - Body Mass Index 35.28 10/14/2003 10:30 AM PATIENT OBSERVATION ASSISTANT documented in this encounter Plan of Treatment Not on file documented as of this encounter Visit Diagnoses Not on filedocumented in this encounter Care Teams Wood Drill Operator Relationship Specialty Start Date End Date Smith Islas MD [address] [place] [phone] PCP - General 10/22/03 07/11/15 documented as of this encounter
--- OUTSIDE RECORDS SUMMARY | 2025-01-21 03:23 | XMS_ITS | Encounter Summary ---
Author Organization [facility] Address [address] [place] [address] Care Team Providers Care Seo Manager Name Role Phone Smith Islas MD Primary Care Provider [phone] Encounter Details Date Type Department Care Team (Late st Contact Info) Description 12/21/2004 Outpatient Historical [facility] Internal Medicine [address] [address] Smith Islas MD [address] [place] [address] Social History Tobacco Use Types Packs/Day Years Used Date Smoking Tobacco: Never Assessed Comments Unknown Sex and Gender Information Value Date Recorded Sex Assigned at Not on file Legal Sex Female 3:30 AM PROJECT COORDINATOR Gender Identity Not on file Sexual Orientation Not on file documented as of this encounter Last Filed Vital Signs Vital Sign Reading Time Taken Comments Blood Pressure 130/70 12/21/2004 10:30 AM PROJECT COORDINATOR Pulse - - Temperature - - Respiratory Rate - - Oxygen Saturation - - Inhaled Oxygen Concentration - - Weight 95.3 kg (210 lb) 12/21/2004 10:30 AM PROJECT COORDINATOR Height - - Body Mass Index 34.95 10/14/2003 10:30 AM PROJECT COORDINATOR documented in this encounter Plan of Treatment Not on file documented as of this encounter Visit Diagnoses Not on filedocumented in this encounter Care Teams Seo Manager Relationship Specialty Start Date End Date Smith Islas MD [address] [place] [phone] PCP - General 10/22/03 07/11/15 documented as of this encounter
--- OUTSIDE RECORDS SUMMARY | 2025-01-21 03:23 | XMS_ITS | Encounter Summary ---
Author Organization [facility] Address [address] [place] [address] Care Team Providers Care Mold Designer Name Role Phone Smith Islas MD Primary Care Provider [phone] Encounter Details Date Type Department Care Team (Late st Contact Info) Description 10/06/2004 Outpatient Historical [facility] Smith Islas MD [address] [place] [phone] ACUTE SINUSITIS NOS (Primary Dx) Social History Tobacco Use Types Packs/Day Years Used Date Smoking Tobacco: Never Assessed Comments Unknown Sex and Gender Information Value Date Recorded Sex Assigned at Not on file Legal Sex Female 3:30 AM GLASS WASHER AND CARRIER Gender Identity Not on file Sexual Orientation Not on file documented as of this encounter Plan of Treatment Not on file documented as of this encounter Visit Diagnoses Diagnosis Acute sinusitis, unspecified- Primary documented in this encounter Care Teams Mold Designer Relationship Specialty Start Date End Date Smith Islas MD [address] [place] [address] [address] [place] [address] PCP - General 10/22/03 07/11/15 documented as of this encounter
--- OUTSIDE RECORDS SUMMARY | 2025-01-21 03:23 | XMS_ITS | Encounter Summary ---
Author Organization [facility] Address [address] [place] [address] Care Team Providers Care Fire Control Officer Name Role Phone Smith Islas MD Primary Care Provider [phone] Encounter Details Date Type Department Care Team (Late st Contact Info) Description 10/10/2006 Outpatient Historical [facility] Internal Medicine [address] [address] Smith Islas MD [address] [place] [phone] Social History Tobacco Use Types Packs/Day Years Used Date Smoking Tobacco: Never Assessed Comments Unknown Sex and Gender Information Value Date Recorded Sex Assigned at Not on file Legal Sex Female 3:30 AM SCALE ADJUSTER Gender Identity Not on file Sexual Orientation Not on file documented as of this encounter Last Filed Vital Signs Vital Sign Reading Time Taken Comments Blood Pressure 124/80 10/10/2006 11:00 AM SCALE ADJUSTER Pulse - - Temperature 36.5 C (97.7 F) 10/10/2006 11:00 AM SCALE ADJUSTER Respiratory Rate - - Oxygen Saturation - - Inhaled Oxygen Concentration - - Weight 98.9 kg (218 lb) 10/10/2006 11:00 AM SCALE ADJUSTER Height - - Body Mass Index 36.28 10/14/2003 10:30 AM SCALE ADJUSTER documented in this encounter Plan of Treatment Not on file documented as of this encounter Visit Diagnoses Not on filedocumented in this encounter Care Teams Fire Control Officer Relationship Specialty Start Date End Date Smith Islas MD [address] [place] [phone] PCP - General 10/22/03 07/11/15 documented as of this encounter
--- OUTSIDE RECORDS SUMMARY | 2025-01-21 03:23 | XMS_ITS | Encounter Summary ---
Author Organization [employer] Address [address] [place] [address] Care Team Providers Care Procurement Specialist Name Role Phone Smith Islas MD Primary Care Provider [phone] Encounter Details Date Type Department Care Team (Latest Contact Info) Description 12/09/2003 Outpatient Historical [facility] Davonte Bermudez MD [address] [facility] [address] [place] [address] ARTHRODESIS STATUS (Primary Dx) Social History Tobacco Use Types Packs/Day Years Used Date Smoking Tobacco: Never Assessed Comments Unknown Sex and Gender Information Value Date Recorded Sex Assigned at Not on file Legal Sex Female 3:30 AM DATASTAGE CONSULTANT Gender Identity Not on file Sexual Orientation Not on file documented as of this encounter Plan of Treatment Not on file documented as of this encounter Visit Diagnoses Diagnosis Arthrodesis status- Primary documented in this encounter Care Teams Procurement Specialist Relationship Specialty Start Date End Date Smith Islas MD [address] [place] [address] [address] [place] [phone] PCP - General 10/22/03 07/11/15 documented as of this encounter
--- OUTSIDE RECORDS SUMMARY | 2025-01-21 03:23 | XMS_ITS | Encounter Summary ---
Author Organization [facility] Address [address] [place] [address] Care Team Providers Care Stacker And Sorter Operator Name Role Phone Smith Islas MD Primary Care Provider Encounter Details Date Type Department Care Team (Late st Contact Info) Description 09/21/2004 Outpatient Historical [facility] Internal Medicine [address] [address] Smith Islas MD [address] [place] [phone] Social History Tobacco Use Types Packs/Day Years Used Date Smoking Tobacco: Never Assessed Comments Unknown Sex and Gender Information Value Date Recorded Sex Assigned at Not on file Legal Sex Female 3:30 AM CLERK ENTRY LEVEL Gender Identity Not on file Sexual Orientation Not on file documented as of this encounter Last Filed Vital Signs Vital Sign Reading Time Taken Comments Blood Pressure 112/70 09/21/2004 11:00 AM CLERK ENTRY LEVEL Pulse - - Temperature 36.1 C (96.9 F) 09/21/2004 11:00 AM CLERK ENTRY LEVEL Respiratory Rate - - Oxygen Saturation - - Inhaled Oxygen Concentration - - Weight 96.2 kg (212 lb) 09/21/2004 11:00 AM CLERK ENTRY LEVEL Height - - Body Mass Index 35.28 10/14/2003 10:30 AM CLERK ENTRY LEVEL documented in this encounter Plan of Treatment Not on file documented as of this encounter Visit Diagnoses Not on filedocumented in this encounter Care Teams Stacker And Sorter Operator Relationship Specialty Start Date End Date Smith Islas MD [address] [place] [phone] PCP - General 10/22/03 07/11/15 documented as of this encounter
--- OUTSIDE RECORDS SUMMARY | 2025-01-21 03:23 | XMS_ITS | Encounter Summary ---
Author Organization [facility] Address [address] [place] [address] Care Team Providers Care News Video Editor Name Role Phone Smith Islas MD Primary Care Provider [phone] Encounter Details Date Type Department Care Team (Late st Contact Info) Description 11/21/2005 Orders Only [facility] Internal Medicine [address] [address] Smith Islas MD [address] [place] [phone] Social History Tobacco Use Types Packs/Day Years Used Date Smoking Tobacco: Never Assessed Comments Unknown Sex and Gender Information Value Date Recorded Sex Assigned at Not on file Legal Sex Female 3:30 AM ROBOTICS APPLICATION ENGINEER Gender Identity Not on file Sexual [...] filedocumented in this encounter Care Teams News Video Editor Relationship Specialty Start Date End Date Smith Islas MD [address] [place] [phone] PCP - General 10/22/03 07/11/15 documented as of this encounter
--- OUTSIDE RECORDS SUMMARY | 2025-01-21 03:23 | XMS_ITS | Encounter Summary ---
Author Organization [facility] Address [address] [place] [address] Care Team Providers Care Permanent Mold Supervisor Name Role Phone Smith Islas MD Primary Care Provider [phone] Encounter Details Date Type Department Care Team (Late st Contact Info) Description 08/20/2007 Outpatient [facility] Internal Medicine [address] [address] Smith Islas MD [address] [place] [phone] Social History Tobacco Use Types Packs/Day Years Used Date Smoking Tobacco: Never Assessed Comments Unknown Sex and Gender Information Value Date Recorded Sex Assigned at Not on file Legal Sex Female 3:30 AM MEDICAID NURSE Gender Identity Not on file Sexual Orientation Not on file documented as of this encounter Plan of Treatment Not on file documented as of this encounter Visit Diagnoses Not on filedocumented in this encounter Care Teams Permanent Mold Supervisor Relationship Specialty Start Date End Date Smith Islas MD [address] [place] [address] [address] [place] [address] PCP - General 10/22/03 07/11/15 documented as of this encounter
--- OUTSIDE RECORDS SUMMARY | 2025-01-21 03:23 | XMS_ITS | Encounter Summary ---
Author Organization [facility] Address [address] [place] [address] Care Team Providers Care Sanitation Lead Name Role Phone Smith Islas MD Primary Care Provider [phone] Encounter Details Date Type Department Care Team (Late st Contact Info) Description 06/01/2006 Orders Only [facility] Internal Medicine [address] [address] Smith Islas MD [address] [place] [phone] Social History Tobacco Use Types Packs/Day Years Used Date Smoking Tobacco: Never Assessed Comments Unknown Sex and Gender Information Value Date Recorded Sex Assigned at Not on file Legal Sex Female 3:30 AM PEDIATRIC NURSE Gender Identity Not on file Sexual [...] no significant smoking history. 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 LAB ORDERS: 3 mo Order number: [id number] Test Ordered: COMPREHENSIVE METABOLIC PANEL W/ GLOMERULAR FILTRATION RATE, ESTIMATED (EGFR) 31153 Order number: [id number] Test Ordered: LIPID PANEL 7600 Order number: [id number] Test Ordered: MICROALBUMIN/CREATININE RATIO, RANDOM URINE 6517 Order number: [id number] Test Ordered: TSH 899 Order number: [id number] Test Ordered: HEMOGLOBIN A1c 496 272.4-HYPERLIPIDEMIA try [...] on filedocumented in this encounter Care Teams Sanitation Lead Relationship Specialty Start Date End Date Smith Islas MD [address] [place] [phone] PCP - General 10/22/03 07/11/15 documented as of this encounter
--- OUTSIDE RECORDS SUMMARY | 2025-01-21 03:23 | XMS_ITS | Encounter Summary ---
Author Organization [facility] Address [address] [place] [address] Care Team Providers Care Homeland Security Program Specialist Name Role Phone Smith Islas MD Primary Care Provider [phone] Encounter Details Date Type Department Care Team (Latest Contact Info) Description 10/02/[address] [facility] Internal Medicine [address] [address] Smith Islas MD [address] [place] [phone] DM w/o Complication Type II (CMS/HCC) Social History Tobacco Use Types Packs/Day Years Used Date Smoking Tobacco: Never Assessed Comments Unknown Sex and Gender Information Value Date Recorded Sex Assigned at Not on file Legal Sex Female 3:30 AM POTATO PEELING MACHINE OPERATOR Gender Identity Not on file Sexual Orientation Not on file documented as of this encounter Plan of Treatment Not on file documented as of this encounter Procedures Procedure Name Priority Date/Time Associated Diagnosis Comments MICROALBUMIN/CREATININ E RATIO, RANDOM UR Routine 10/02/2007 9:09 AM POTATO PEELING MACHINE OPERATOR TSH Routine 10/02/2007 9:05 AM POTATO PEELING MACHINE OPERATOR HEMOGLOBIN A1C Routine 10/02/2007 9:05 AM POTATO PEELING MACHINE OPERATOR LIPID PANEL Routine 10/02/2007 9:05 AM POTATO PEELING MACHINE OPERATOR COMPREHENSIVE METABOLIC PANEL Routine 10/02/2007 9:05 AM POTATO PEELING MACHINE OPERATOR documented in this encounter Results * MICROALBUMIN/CREATININE RATIO, RANDOM UR (10/02/2007 9:09 AM POTATO PEELING MACHINE OPERATOR) MICROALBUMIN/C REAT RATIO, UR 4 0 - 29 mg/g creatinine INTERFACE SYSTEM 10/02/2007 9:09 AM POTATO PEELING MACHINE OPERATOR Smith Islas MD URINE ORDERABLES Edited Performing Organization Address [facility] de Phone Number INTERFACE SYSTEM Refer to clinic/hospital department * (ABNORMAL) LIPID PANEL (10/02/2007 9:05 AM POTATO PEELING MACHINE OPERATOR) CHOLESTEROL 199 100 - 199 mg/dL INTERFACE SYSTEM TRIGLYCERIDE 109 10 - 149 mg/dL INTERFACE SYSTEM HDL 73(H) 40 - 59 mg/dL INTERFACE SYSTEM CHOL/HDL RATIO 2.7 2.0 - 5.0 INTER FACE SYSTEM LDL CALCULATED 104(H) <=99 mg/dL INTERFACE SYSTEM LIPID PANEL COMMENT See Below INTERFACE SYSTEM Comment: The adult ATP and pediatric NCEP classifications for lipids are available on the [facility] Intranet at: [email or web address] Select: Lab Policies and Procedures,Current Select: Lipid Panel Interpretation 10/02/2007 9:05 AM POTATO PEELING MACHINE OPERATOR Smith Islas MD CHEMISTRY ORDERABLES Edited Performing Organization Address [facility] de Phone Number INTERFACE SYSTEM Refer to clinic/hospital department * (ABNORMAL) COMPREHENSIVE METABOLIC PANEL (10/02/2007 9:05 AM POTATO PEELING MACHINE OPERATOR) GLUCOSE 112(H) 65 - 99 mg/dL INTERFACE [...] and non- Americans is available on the [facility] Intranet at: [email or web address] Select: Lab Policies and Procedures Select: Reference Ranges - GFR 10/02/2007 9:05 AM POTATO PEELING MACHINE OPERATOR Smith Islas MD CHEMISTRY ORDERABLES Edited Performing Organization Address [facility] Phone Number INTERFACE SYSTEM Refer to clinic/hospital department * TSH (10/02/2007 9:05 AM POTATO PEELING MACHINE OPERATOR) TSH 2.89 0.27 - 4.20 uU/mL INTERFACE SYSTEM 10/02/2007 9:05 AM POTATO PEELING MACHINE OPERATOR Smith Islas MD CHEMISTRY ORDERABLES Edited Performing Organization Address [facility] Phone Number INTERFACE SYSTEM Refer to clinic/hospital department * (ABNORMAL) HEMOGLOBIN A1C (10/02/2007 9:05 AM POTATO PEELING MACHINE OPERATOR) HEMOGLOBIN A1C 6.8(H) 4.1 - 6.1 % of Hgb INTERFACE SYSTEM GLUCOSE, MEAN BLOOD 165 mg/dL INTERFACE SYSTEM 10/02/2007 9:05 AM POTATO PEELING MACHINE OPERATOR Smith Islas MD CHEMISTRY ORDERABLES Edited Performing Organization Address [facility] Co de Phone Number INTERFACE SYSTEM Refer to clinic/hospital department documented in this encounter Visit Diagnoses Diagnosis Type II or unspecified type diabetes mellitus without mention of complication, not stated as uncontrolled documented in this encounter Care Teams Homeland Security Program Specialist Relationship Specialty Start Date End Date Smith Islas MD [address] [place] [phone] PCP - General 10/22/03 07/11/15 documented as of this encounter
--- OUTSIDE RECORDS SUMMARY | 2025-01-21 03:23 | XMS_ITS | Encounter Summary ---
Author Organization [facility] Address [address] [place] [address] Care Team Providers Care Contract Specialist Name Role Phone Smith Islas MD Primary Care Provider [phone] Encounter Details Date Type Department Care Team (Late st Contact Info) Description 10/24/2005 Orders Only [facility] Internal Medicine [address] [address] Smith Islas MD [address] [place] [phone] Social History Tobacco Use Types Packs/Day Years Used Date Smoking Tobacco: Never Assessed Comments Unknown Sex and Gender Information Value Date Recorded Sex Assigned at Not on file Legal Sex Female 3:30 AM SERVER ADMINISTRATOR Gender Identity Not on file Sexual Orientation Not on file documented as of this encounter Plan of Treatment Not on file documented as of this encounter Visit Diagnoses Not on filedocumented in this encounter Care Teams Contract Specialist Relationship Specialty Start Date End Date Smith Islas MD [address] [place] [address] [address] [place] [phone] PCP - General 10/22/03 07/11/15 documented as of this encounter
--- OUTSIDE RECORDS SUMMARY | 2025-01-21 03:23 | XMS_ITS | Encounter Summary ---
Author Organization [facility] Address [address] [place] [address] Care Team Providers Care Mechanical Product Engineer Name Role Phone Smith Islas MD Primary Care Provider [phone] Encounter Details Date Type Department Care Team (Late st Contact Info) Description 11/21/2005 Outpatient Historical [facility] Internal Medicine [address] [address] Smith Islas MD [address] [place] [phone] Social History Tobacco Use Types Packs/Day Years Used Date Smoking Tobacco: Never Assessed Comments Unknown Sex and Gender Information Value Date Recorded Sex Assigned at Not on file Legal Sex Female 3:[address] DRIVER Gender Identity Not on file Sexual Orientation Not on file documented as of this encounter Last Filed Vital Signs Vital Sign Reading Time Taken Comments Blood Pressure 130/80 11/21/2005 9:[address]IVER Pulse - - Temperature 36.6 C (97.8 F) 11/21/2005 9:[address]IVER Respiratory Rate - - Oxygen Saturation - - Inhaled Oxygen Concentration - - Weight 104.3 kg (230 lb) 11/21/2005 9:[address]IVER Height - - Body Mass Index 38.27 10/14/2003 10:[address]IVER documented in this encounter Plan of Treatment Not on file documented as of this encounter Visit Diagnoses Not on filedocumented in this encounter Care Teams Mechanical Product Engineer Relationship Specialty Start Date End Date Smith Islas MD [address] [place] [phone] PCP - General 10/22/03 07/11/15 documented as of this encounter
--- OUTSIDE RECORDS SUMMARY | 2025-01-21 03:23 | XMS_ITS | Encounter Summary ---
Author Organization [facility] Address [address] [place] [address] Care Team Providers Care Kick Press Setter Name Role Phone Smith Islas MD Primary Care Provider [phone] Encounter Details Date Type Department Care Team (Late st Contact Info) Description 06/06/2005 Outpatient Historical [facility] Internal Medicine [address] [address] Smith Islas MD [address] [place] [phone] Social History Tobacco Use Types Packs/Day Years Used Date Smoking Tobacco: Never Assessed Comments Unknown Sex and Gender Information Value Date Recorded Sex Assigned at Not on file Legal Sex Female 3:30 AM BAKERY TECHNICIAN Gender Identity Not on file Sexual Orientation Not on file documented as of this encounter Plan of Treatment Not on file documented as of this encounter Visit Diagnoses Not on filedocumented in this encounter Care Teams Kick Press Setter Relationship Specialty Start Date End Date Smith Islas MD [address] [place] [address] [address] [place] [address] PCP - General 10/22/03 07/11/15 documented as of this encounter
--- OUTSIDE RECORDS SUMMARY | 2025-01-21 03:23 | XMS_ITS | Encounter Summary ---
Author Organization [facility] Address [address] [place] [address] Care Team Providers Care Cardiac Rehab Nurse Name Role Phone Torri Johnson PT Unavailable Unavail able Dustin Tim PT Unavailable Unavailab Jong Brunson SENIOR FRONT END WEB DEVELOPER Unavailable Unavaila ble Miscellaneous, Not In File Unavailable Unava Brijesh Hdz MD Primary Care Provider [phone] Encounter Details Date Type Department Care Team (Late st Contact Info) Description 01/21/2025 5:00 AM CDT Emergency [facility] Emergency Department [address] [place] [address] Social History Tobacco Use Types Packs/Day Years [...] often do you attend chur ch or christianity services? Never 03/22/2021 Do you belong to any clubs o r organizations such as druze groups, unions, fraternal or athletic groups, or [...] on file Legal Sex Female 6:18 PM COMPANY DANCER Gender Identity Not on file Sexual Orientation Not on file documented as of this encounter Miscellaneous Notes * ED Pre-Arrival Note - Paul Jimenez RN - 01/21/2025 2:25 AM CDT Pre-Arrival Note Vascular transfer from [place] c/o Headache, dizziness, blurred vision, and nausea for the past week. OSH found a fractured piece of guidewire to be in her left IJ. Per CTA, there is poor filling inthe IJ. Accepted by MD Roberts and MD Herrera. Paul Jimenez RN documented in this encounter Plan of Treatment Not on file documented as of this encounter Visit Diagnoses Not on filedocumented in this encounter Care Teams Cardiac Rehab Nurse Relationship Specialty Start Date End Date Brijesh Cardenas MD PCP - General Family Medicine 07/12/22 Torri Johnson, PT Physical Therapist Physical Therapy 04/18/18 Dustin Tim, PT Physical Therapist Physical Therapy 04/26/18 Jong Reeves, SENIOR FRONT END WEB DEVELOPER Physical Therapist Physical Therapy 05/08/18 Miscellaneous, Not In File 03/17/21 documented as of this encounter
--- OUTSIDE RECORDS SUMMARY | 2025-01-21 03:23 | XMS_ITS | Encounter Summary ---
Author Organization [facility] Address [address] [place] [address] Care Team Providers Care Fabrication Specialist Name Role Phone Smith Islas MD Primary Care Provider [phone] Encounter Details Date Type Department Care Team (Late st Contact Info) Description 03/24/2005 Outpatient Historical [facility] Internal Medicine [address] [address] Smith Islas MD [address] [place] [phone] Social History Tobacco Use Types Packs/Day Years Used Date Smoking Tobacco: Never Assessed Comments Unknown Sex and Gender Information Value Date Recorded Sex Assigned at Not on file Legal Sex Female 3:30 AM REGISTRY NP Gender Identity Not on file Sexual Orientation [...] Body Mass Index 36.28 10/14/2003 10:30 AM REGISTRY NP documented in this encounter Plan of Treatment Not on file documented as of this encounter Visit Diagnoses Not on filedocumented in this encounter Care Teams Fabrication Specialist Relationship Specialty Start Date End Date Smith Islas MD [address] [place] [phone] PCP - General 10/22/03 07/11/15 documented as of this encounter
--- OUTSIDE RECORDS SUMMARY | 2025-01-21 03:23 | XMS_ITS | Encounter Summary ---
Author Organization [facility] Address [address] [place] [address] Care Team Providers Care Camouflage Specialist Name Role Phone Smith Islas MD Primary Care Provider [phone] Encounter Details Date Type Department Care Team (Late st Contact Info) Description 07/18/2005 Outpatient Historical [facility] Internal Medicine [address] [address] Smith Islas MD [address] [place] [phone] Social History Tobacco Use Types Packs/Day Years Used Date Smoking Tobacco: Never Assessed Comments Unknown Sex and Gender Information Value Date Recorded Sex Assigned at Not on file Legal Sex Female 3:30 AM HOMICIDE SQUAD LIEUTENANT Gender Identity Not on file Sexual Orientation [...] Body Mass Index 36.94 10/14/2003 10:30 AM HOMICIDE SQUAD LIEUTENANT documented in this encounter Plan of Treatment Not on file documented as of this encounter Visit Diagnoses Not on filedocumented in this encounter Care Teams Camouflage Specialist Relationship Specialty Start Date End Date Smith Islas MD [address] [place] [phone] PCP - General 10/22/03 07/11/15 documented as of this encounter
--- OUTSIDE RECORDS SUMMARY | 2025-01-21 03:23 | XMS_ITS | Encounter Summary ---
Author Organization [facility] Address [address] [place] [address] Care Team Providers Care Tea Plantation Worker Name Role Phone Smith Islas MD Primary Care Provider [phone] Encounter Details Date Type Department Care Team (Late st Contact Info) Description 06/27/2005 Outpatient Historical [facility] Internal Medicine [address] [address] Smith Islas MD [address] [place] [phone] Social History Tobacco Use Types Packs/Day Years Used Date Smoking Tobacco: Never Assessed Comments Unknown Sex and Gender Information Value Date Recorded Sex Assigned at Not on file Legal Sex Female 3:30 AM CAT CRACKER OPERATOR Gender Identity Not on file Sexual [...] Body Mass Index 36.61 10/14/2003 10:30 AM CAT CRACKER OPERATOR documented in this encounter Plan of Treatment Not on file documented as of this encounter Visit Diagnoses Not on filedocumented in this encounter Care Teams Tea Plantation Worker Relationship Specialty Start Date End Date Smith Islas MD [address] [place] [phone] PCP - General 10/22/03 07/11/15 documented as of this encounter
--- OUTSIDE RECORDS SUMMARY | 2025-01-21 03:23 | XMS_ITS | Encounter Summary ---
Author Organization [facility] Address [address] [place] [address] Care Team Providers Care Ambulance Driver Paramedic Name Role Phone Smith Islas MD Primary Care Provider [phone] Encounter Details Date Type Department Care Team (Late st Contact Info) Description 11/03/2005 Outpatient [facility] Internal Medicine [address] [address] Smith Islas MD [address] [place] [phone] Social History Tobacco Use Types Packs/Day Years Used Date Smoking Tobacco: Never Assessed Comments Unknown Sex and Gender Information Value Date Recorded Sex Assigned at Not on file Legal Sex Female 3:30 AM FIRST DYER Gender Identity Not on file Sexual Orientation Not on file documented as of this encounter Plan of Treatment Not on file documented as of this encounter Visit Diagnoses Not on filedocumented in this encounter Care Teams Ambulance Driver Paramedic Relationship Specialty Start Date End Date Smith Islas MD [address] [place] [address] [address] [place] [address] PCP - General 10/22/03 07/11/15 documented as of this encounter
--- OUTSIDE RECORDS SUMMARY | 2025-01-21 03:23 | XMS_ITS | Encounter Summary ---
Author Organization [facility] Address [address] [place] [address] Care Team Providers Care Db2 Developer Name Role Phone Smith Islas MD Primary Care Provider [phone] Encounter Details Date Type Department Care Team (Late st Contact Info) Description 08/04/2004 Outpatient [facility] Internal Medicine [address] [address] Smith Islas MD [address] [place] [phone] Social History Tobacco Use Types Packs/Day Years Used Date Smoking Tobacco: Never Assessed Comments Unknown Sex and Gender Information Value Date Recorded Sex Assigned at Not on file Legal Sex Female 3:30 AM MANAGER PORT Gender Identity Not on file Sexual Orientation Not on file documented as of this encounter Plan of Treatment Not on file documented as of this encounter Visit Diagnoses Not on filedocumented in this encounter Care Teams Db2 Developer Relationship Specialty Start Date End Date Smith Islas MD [address] [place] [address] [address] [place] [address] PCP - General 10/22/03 07/11/15 documented as of this encounter
--- OUTSIDE RECORDS SUMMARY | 2025-01-21 03:23 | XMS_ITS | Encounter Summary ---
Author Organization [facility] Address [address] [place] [address] Care Team Providers Care Garbage Man Name Role Phone Becka Escobedo MD Primary Care Provider [phone] Encounter Details Date Type Department Care Team (Late st Contact Info) Description 08/07/2007 Orders Only [facility] Internal Medicine [address] [address] Becka Escobedo MD [address] [place] [phone] Social History Tobacco Use Types Packs/Day Years Used Date Smoking Tobacco: Never Assessed Comments Unknown Sex and Gender Information Value Date Recorded Sex Assigned at Not on file Legal Sex Female 3:30 AM MAKEUP SALES CONSULTANT Gender Identity Not on file Sexual Orientation Not on file documented as of this encounter Progress Notes * Becka Escobedo MD - 02/06/2008 6:00 PM CDT CENTRAL TEST SCHEDULING DATE: AUG 07, 2007 Note created by: Rossi Herrera E 01:53 p Patient Name : MORRIS STOKES Address: [address] [address] D.O.B: 1945 SSN: [id number] Parent/Guardian if applicable: Patient Insurance: [employer] ID#: [id number] Group#: ORDER(S) #: [id number] xray wrist PLEASE SCHEDULE THE APPOINTMENT AT THE FOLLOWING LOCATION: [facility] [phone]. SPECIAL SCHEDULING INSTRUCTIONS: walk in ORDERING PHYSICIAN: BECKA ESCOBEDO MD OFFICE TERMITE CONTROL REPRESENTATIVE & PHONE: Rossi Herrera E * Becka [...] bruising tender MUSCULOSKELETAL EXAM: right lat back stayer, mild central ls tender, le ok, left [...] mgt fot now LAB ORDERS: Order number: [id number] Test Ordered: XRAY WRIST LEFT 459.89-ECCYHMOSIS tyl /vicodin prn, reassess, review hospital REQUESTING OLD RECORDS: . recent lab from [facility] Patient Education: The patient was allowed to ask questions to stated satisfaction. RETURN VISIT : Instructed to call if not improving. Electronically Signed by: Becka Escobedo MD on Sunday, August 07, 2007 documented in this encounter Plan of Treatment Not on file documented as of this encounter Visit Diagnoses Not on filedocumented in this encounter Care Teams Garbage Man Relationship Specialty Start Date End Date Becka Escobedo MD [address] [place] [phone] PCP - General 10/22/03 07/11/15 documented as of this encounter
--- OUTSIDE RECORDS SUMMARY | 2025-01-21 03:23 | XMS_ITS | Encounter Summary ---
Author Organization [facility] Address [address] [place] [address] Care Team Providers Care Broadcast Meteorologist Name Role Phone Smith Islas MD Primary Care Provider [phone] Encounter Details Date Type Department Care Team (Late st Contact Info) Description 08/04/2004 Outpatient [facility] Internal Medicine [address] [address] Smith Islas MD [address] [place] [phone] Social History Tobacco Use Types Packs/Day Years Used Date Smoking Tobacco: Never Assessed Comments Unknown Sex and Gender Information Value Date Recorded Sex Assigned at Not on file Legal Sex Female 3:30 AM WALLPAPER REMOVER STEAM Gender Identity Not on file Sexual Orientation Not on file documented as of this encounter Plan of Treatment Not on file documented as of this encounter Visit Diagnoses Not on filedocumented in this encounter Care Teams Broadcast Meteorologist Relationship Specialty Start Date End Date Smith Islas MD [address] [place] [address] [address] [place] [address] PCP - General 10/22/03 07/11/15 documented as of this encounter
--- OUTSIDE RECORDS SUMMARY | 2025-01-21 03:23 | XMS_ITS | Encounter Summary ---
Author Organization [facility] Address [address] [place] [address] Care Team Providers Care Zoo Director Name Role Phone Smith Islas MD Primary Care Provider [phone] Encounter Details Date Type Department Care Team (Late st Contact Info) Description 08/04/2004 Outpatient [facility] Internal Medicine [address] [address] Smith Islas MD [address] [place] [phone] Social History Tobacco Use Types Packs/Day Years Used Date Smoking Tobacco: Never Assessed Comments Unknown Sex and Gender Information Value Date Recorded Sex Assigned at Not on file Legal Sex Female 3:30 AM INSTRUMENT PANEL ASSEMBLER Gender Identity Not on file Sexual Orientation Not on file documented as of this encounter Plan of Treatment Not on file documented as of this encounter Visit Diagnoses Not on filedocumented in this encounter Care Teams Zoo Director Relationship Specialty Start Date End Date Smith Islas MD [address] [place] [address] [address] [place] [address] PCP - General 10/22/03 07/11/15 documented as of this encounter
--- OUTSIDE RECORDS SUMMARY | 2025-01-21 03:23 | XMS_ITS | Encounter Summary ---
Author Organization [facility] Address [address] [place] [address] Care Team Providers Care Tunnel Kiln Firer Name Role Phone Smith Islas MD Primary Care Provider [phone] Encounter Details Date Type Department Care Team (Late st Contact Info) Description 09/11/2006 Outpatient Historical [facility] Internal Medicine [address] [address] Smith Islas MD [address] [place] [phone] Social History Tobacco Use Types Packs/Day Years Used Date Smoking Tobacco: Never Assessed Comments Unknown Sex and Gender Information Value Date Recorded Sex Assigned at Not on file Legal Sex Female 3:30 AM AIR CREW MEMBER Gender Identity Not on file Sexual Orientation Not on file documented as of this encounter Last Filed Vital Signs Vital Sign Reading Time Taken Comments Blood Pressure 130/80 09/11/2006 10:15 AM AIR CREW MEMBER Pulse - - Temperature 36.8 C (98.3 F) 09/11/2006 10:15 AM AIR CREW MEMBER Respiratory Rate - - Oxygen Saturation - - Inhaled Oxygen Concentration - - Weight 98.9 kg (218 lb) 09/11/2006 10:15 AM AIR CREW MEMBER Height - - Body Mass Index 36.28 10/14/2003 10:30 AM AIR CREW MEMBER documented in this encounter Plan of Treatment Not on file documented as of this encounter Visit Diagnoses Not on filedocumented in this encounter Care Teams Tunnel Kiln Firer Relationship Specialty Start Date End Date Smith Islas MD [address] [place] [phone] PCP - General 10/22/03 07/11/15 documented as of this encounter
--- OUTSIDE RECORDS SUMMARY | 2025-01-21 03:23 | XMS_ITS | Encounter Summary ---
Author Organization [facility] Address [address] [place] [address] Care Team Providers Care Trade Economist Name Role Phone Smith Islas MD Primary Care Provider [phone] Encounter Details Date Type Department Care Team (Late st Contact Info) Description 01/15/2004 Outpatient [facility] Internal Medicine [address] [address] Smith Islas MD [address] [place] [phone] Social History Tobacco Use Types Packs/Day Years Used Date Smoking Tobacco: Never Assessed Comments Unknown Sex and Gender Information Value Date Recorded Sex Assigned at Not on file Legal Sex Female 3:30 AM BOAT OUTBOARD ENGINE MECHANIC Gender Identity Not on file Sexual Orientation Not on file documented as of this encounter Plan of Treatment Not on file documented as of this encounter Visit Diagnoses Not on filedocumented in this encounter Care Teams Trade Economist Relationship Specialty Start Date End Date Smith Islas MD [address] [place] [address] [address] [place] [address] PCP - General 10/22/03 07/11/15 documented as of this encounter
--- OUTSIDE RECORDS SUMMARY | 2025-01-21 03:23 | XMS_ITS | Encounter Summary ---
Author Organization [facility] Address [address] [place] [address] Care Team Providers Care Slope Runner Name Role Phone Smith Islas MD Primary Care Provider [phone] Encounter Details Date Type Department Care Team (Latest Contact Info) Description 06/24/2008 Outpatient Historical [facility] Smith Islas MD [address] [facility] [address] [place] [address] DM w/o Complication Type II (CMS/HCC) Social History Tobacco Use Types Packs/Day Years Used Date Smoking Tobacco: Former Alcohol Use Standard Drinks/Week Comments No 0 (1 standard drink = 0.6 oz pur e alcohol) Comments No Sex and Gender Information Value Date Recorded Sex Assigned at Not on file Legal Sex Female 3:30 AM MARKETING PRODUCTION COORDINATOR Gender Identity Not on file Sexual Orientation Not on file documented as of this encounter Plan of Treatment Not on file documented as of this encounter Visit Diagnoses Diagnosis Type II or unspecified type diabetes mellitus without mention of complication, not stated as uncontrolled documented in this encounter Care Teams Slope Runner Relationship Specialty Start Date End Date Smith Islas MD [address] [facility] [address] [place] [address] PCP - General 10/22/03 07/11/15 documented as of this encounter
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
--- OUTSIDE RECORDS SUMMARY | 2025-01-21 03:23 | XMS_ITS | Encounter Summary ---
Author Organization [facility] Address [address] [place] [address] Care Team Providers Care Petrographer Name Role Phone Becka Escobedo MD Primary Care Provider Encounter Details Date Type Department Care Team (Latest Contact Info) Description 01/12/2009 Outpatient Historical [facility] Becka Mcghee MD [address] [place] [address] Malignant Neoplasm of Breast (Female), Unspecified Site (CMS/HCC) Social History Tobacco Use Types Packs/Day Years Used Date Smoking Tobacco: Former Cigarettes Q uit: 06/26/1988 Alcohol Use Standard Drinks/Week Comments No 0 (1 standard drink = 0.6 oz pur e alcohol) Comments No Sex and Gender Information Value Date Recorded Sex Assigned at Not on file Legal Sex Female 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 [place], [place] [address] Admit Date: 01/12/2009 MORRIS STOKES Sex: F Admit Prov: BECKA ESCOBEDO Date: 1945 Primary Care Prov: BECKA ESCOBEDO CMRN: [id number] Room: Kris SSN: [id number] IMAGING SERVICES Ordering Prov: BECKA ESCOBEDO Interpretation [...] site documented in this encounter Care Teams Petrographer Relationship Specialty Start Date End Date Becka Escobedo MD [address] [place] [address] PCP - General 10/22/03 07/11/15 documented as of this encounter
--- OUTSIDE RECORDS SUMMARY | 2025-01-21 03:24 | XMS_ITS | Encounter Summary ---
Author Organization [facility] Address [address] [place] [address] Care Team Providers Care Web Applications Architect Name Role Phone Smith Islas MD Primary Care Provider [phone] Encounter Details Date Type Department Care Team (Latest Contact Info) Description 05/29/2007 Outpatient Historical [facility] Internal Medicine [address] [address] Smith Islas MD [address] [place] [phone] DM w/o Complication Type II (CMS/HCC) (Primary Dx) Social History Tobacco Use Types Packs/Day Years Used Date Smoking Tobacco: Never Assessed Comments Unknown Sex and Gender Information Value Date Recorded Sex Assigned at Not on file Legal Sex Female 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 Gender Identity Not on file Sexual [...] MD CHEMISTRY ORDERABLES Edited Performing Organization Address City/[facility]/ZIP Co de Phone Number INTERFACE SYSTEM Refer to clinic/hospital department * TSH (05/29/2007 8:22 AM CDT) TSH 3.21 0.27 - 4.20 uU/mL INTERFACE SYSTEM 05/29/2007 8:22 AM CDT Smith Islas MD CHEMISTRY ORDERABLES Edited Performing Organization Address [facility] de Phone Number INTERFACE SYSTEM Refer [...] is available on the [facility] Intranet at: [email or web address] Select: Lab Policies and Procedures Select: Reference Ranges - GFR 05/29/2007 8:22 AM CDT Smith Islas MD CHEMISTRY ORDERABLES Edited Performing Organization Address [facility] de Phone Number INTERFACE SYSTEM Refer [...] are available on the [facility] Intranet at: [email or web address] Select: Lab Policies and Procedures,Current Select: Lipid Panel Interpretation 05/29/2007 8:22 AM CDT Result [facility] Smith Islas MD CHEMISTRY ORDERABLES Edited Performing Organization Address [facility] de Phone Number INTERFACE SYSTEM Refer to clinic/hospital department documented in this encounter Visit Diagnoses Diagnosis Type II or unspecified type diabetes mellitus without mention of complication, not stated as uncontrolled- Primary documented in this encounter Care Teams Web Applications Architect Relationship Specialty Start Date End Date Smith Islas MD [address] [place] [phone] PCP - General 10/22/03 07/11/15 documented as of this encounter
--- OUTSIDE RECORDS SUMMARY | 2025-01-21 03:24 | XMS_ITS | Encounter Summary ---
Author Organization [facility] Address [address] [place] [address] Care Team Providers Care Metal Fabricating Supervisor Name Role Phone Smith Islas MD Primary Care Provider [phone] Encounter Details Date Type Department Care Team (Late st Contact Info) Description 05/29/[address] 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
--- OUTSIDE RECORDS SUMMARY | 2025-01-21 03:24 | XMS_ITS | Encounter Summary ---
Author Organization [facility] Address [address] [place] [address] Care Team Providers Care Reject Opener And Filler Name Role Phone Smith Islas MD Primary Care Provider [phone] Encounter Details Date Type Department Care Team (Late st Contact Info) Description 07/24/2007 Orders Only [facility] Internal Medicine [address] [address] Smith Islas MD [address] [place] [phone] Social History Tobacco Use Types Packs/Day Years Used Date Smoking Tobacco: Never Assessed Comments Unknown Sex and Gender Information Value Date Recorded Sex Assigned at Not on file Legal Sex Female 3:30 AM GRAIN MANAGER Gender Identity Not on file Sexual [...] pos tinels left wrist NEUROLOGIC: CRANIAL NERVES: assistant professor of communication II-XII grossly intact. 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 discussed, mammo ok 244.9-HYPOTHYROIDISM cont med 250.00-DM II CONTROLLED recheck lab, cont diet, enc exercise 272.4-HYPERLIPIDEMIA cont med 281.8-OTHER DEFICIENCY ANEMIAS recheck lb 311-DEPRESSION try cymbalta 356.9-PERIPHERAL NEUROPATHY worse, try cymbalta, consider try gabapentin again, check b12, suspect multifactorial, pt wants to wait on emg testing LAB ORDERS: Order number: [id number] Test Ordered: VITAMIN B12 LEVEL 1719 461.9-SINUSITIS [...] on filedocumented in this encounter Care Teams Reject Opener And Filler Relationship Specialty Start Date End Date Smith Islas MD [address] [place] [phone] PCP - General 10/22/03 07/11/15 documented as of this encounter
--- OUTSIDE RECORDS SUMMARY | 2025-01-21 03:24 | XMS_ITS | Encounter Summary ---
Author Organization [facility] Address 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
--- OUTSIDE RECORDS SUMMARY | 2025-01-21 03:24 | XMS_ITS | Encounter Summary ---
Author Organization [facility] Address [address] [place] [address] Care Team Providers Care Hat Lacer Name Role Phone Smith Islas MD Primary Care Provider [phone] Encounter Details Date Type Department Care Team (Latest Contact Info) Description 11/10/2003 Outpatient Historical [facility] Davonte Bermudez MD [address] [facility] [address] [place] [address] ARTHRODESIS STATUS (Primary Dx) Social History Tobacco Use Types Packs/Day Years Used Date Smoking Tobacco: Never Assessed Comments Unknown Sex and Gender Information Value Date Recorded Sex Assigned at Not on file Legal Sex Female 3:30 AM LAB CLERK Gender Identity Not on file Sexual Orientation Not on file documented as of this encounter Plan of Treatment Not on file documented as of this encounter Visit Diagnoses Diagnosis Arthrodesis status- Primary documented in this encounter Care Teams Hat Lacer Relationship Specialty Start Date End Date Smith Islas MD [address] [place] [address] [address] [place] [phone] PCP - General 10/22/03 07/11/15 documented as of this encounter
--- OUTSIDE RECORDS SUMMARY | 2025-01-21 03:24 | XMS_ITS | Encounter Summary ---
Author Organization [facility] Address [address] [place] [address] Care Team Providers Care Inside Sales Coordinator Name Role Phone Smith Islas MD Primary Care Provider [phone] Encounter Details Date Type Department Care Team (Late st Contact Info) Description 05/31/2007 Outpatient Historical [facility] Internal Medicine [address] [phone] Smith Islas MD [address] [place] [phone] Social History Tobacco Use Types Packs/Day Years Used Date Smoking Tobacco: Never Assessed Comments Unknown Sex and Gender Information Value Date Recorded Sex Assigned at Not on file Legal Sex Female 3:30 AM PRIVACY ANALYST Gender Identity Not on file Sexual [...] on filedocumented in this encounter Care Teams Inside Sales Coordinator Relationship Specialty Start Date End Date Smith Islas MD [address] [place] [phone] PCP - General 10/22/03 07/11/15 documented as of this encounter
--- OUTSIDE RECORDS SUMMARY | 2025-01-21 03:24 | XMS_ITS | Encounter Summary ---
Author Organization [facility] Address [address] [place] [address] Care Team Providers Care Flight Line Mechanic Name Role Phone Smith Islas MD Primary Care Provider [phone] Encounter Details Date Type Department Care Team (Latest Contact Info) Description 08/26/2003 Outpatient Historical [facility] Davonte Bermudez MD [address] [facility] [address] [place] [address] SPONDYLOLISTHESIS (Primary Dx) Social History Tobacco Use Types Packs/Day Years Used Date Smoking Tobacco: Never Assessed Comments Unknown Sex and Gender Information Value Date Recorded Sex Assigned at Not on file Legal Sex Female 3:30 AM DEVULCANIZER OPERATOR Gender Identity Not on file Sexual Orientation Not on file documented as of this encounter Plan of Treatment Not on file documented as of this encounter Visit Diagnoses Diagnosis Congenital spondylolisthesis- Primary documented in this encounter Care Teams Flight Line Mechanic Relationship Specialty Start Date End Date Smith Islas MD [address] [place] [address] [address] [place] [phone] PCP - General 10/22/03 07/11/15 documented as of this encounter
--- OUTSIDE RECORDS SUMMARY | 2025-01-21 03:24 | XMS_ITS | Encounter Summary ---
Author Organization [facility] Address [address] [place] [address] Care Team Providers Care Roll Scale Man Name Role Phone Radhika Arrednodo MD Primary Care Provider [phone] Torri Johnson PT Unavailable Unavail able Dustin Tim PT Unavailable Unavailab Jong Brunson DRIER FEEDER Unavailable Unavaila Moriah Zapien NP Primary Care Provider [phone] Bradley Rubin MD Primary Care Provider [phone] Miscellaneous, Not In File Unavailable Unava ilTano Cates LCSW Unavailable UnavailMaryam Sargent RN Unavailable [phone] Brijesh Cardenas MD Primary Care Provider [phone] Encounter Details Date Type Department Care Team (Late st Contact Info) Description 10/14/2019 Telephone [place] [id number] [address] Noelle Robison RN Social History [...] on file Legal Sex Female 6:18 PM MARKETING TRAFFIC MANAGER Gender Identity Not on file Sexual [...] COVID: Suspected 10/26/2023 10/26/2023 10/26/2023 7:11 PM MARKETING TRAFFIC MANAGER documented as of this encounter Care Teams Roll Scale Man Relationship Specialty Start Date End Date Radhika Arredondo MD [address] [facility] [address] [address] PCP - General Internal Medicine 10/01/17 11/26/19 Moriah Rodriguez NP PCP - General 11/27/19 08/15/20 Bradley Rubin MD [address] [place] [address] PCP - General Family Medicine 08/16/20 07/11/22 Brijesh Cardenas MD [address] [place] [address] [address] [place] [address] PCP - General Family Medicine 07/12/22 Torri Johnson, PT Physical Therapist Physical Therapy 04/18/18 Dustin Tim, PT Physical Therapist Physical Therapy 04/26/18 Jong Reeves, DRIER FEEDER Physical Therapist Physical Therapy 05/08/18 Miscellaneous, Not In File 03/17/21 Tano Purcell LCSW [employer] Reading Teacher 03/22/21 01/17/22 Maryam Cline, YAMILA [address] [place] [address] [address] Quotation Clerk 07/04/21 07/27/21 documented as of this encounter
--- OUTSIDE RECORDS SUMMARY | 2025-01-21 03:24 | XMS_ITS | Referral Summary ---
Author Organization [facility] al Address [address] [place] [address] Care Team Providers Care Associate Director Of Nursing Name Role Phone Alex Torri Kamara PT Unavailable Unavail able Dustin Tim PT Unavailable Unavailab Jong Brunson CONCESSIONIST Unavailable Unavaila ble Miscellaneous, Not In File Unavailable Unava Brijesh Hdz MD Primary Care Provider Encounters Date Type Department Care Team Description 01/21/2025 5:00 AM CDT Emergency [facility] Emergency Department [address] [place] [address] 11/17/2024 1:50 PM WELDING INSTRUCTOR - 11/17/2024 11:59 PM WELDING INSTRUCTOR Hospital Encounter [facility] Breast [facility] ([facility]) [address] [place] [phone] Screening mammogram, encounter for Discharge Disposition: Discharge [...] 05/31/2021 Assessment & Plan (09/13/2021 1:57 PM WELDING INSTRUCTOR): Not well controlled, had MRSA infection requiring removal of all surgical hardware Taking hydrocodone for pain Per patient bone is healing well Home PT and home nursing of present for infusions, receiving daily vancomycin Assessment & Plan (08/10/2021 7:53 PM WELDING INSTRUCTOR): Stable improving, has completed course of antibiotics [...] encouraged to get back in with her patient support specialist. She wants, we have two patient support specialist in our group if it [...] 11/07/2017 Assessment & Plan (09/27/2020 2:05 PM WELDING INSTRUCTOR): Not well controlled, patient weight is stable [...] therapy Assessment & Plan (10/25/2020 2:09 PM WELDING INSTRUCTOR): Patient is better tolerating Januvia, will continue current dose and check a1c today Assessment & Plan (09/27/2020 2:03 PM WELDING INSTRUCTOR): Does not want to check a1c today -unknown control, patient had high carbohydrate meals during holiday season -cannot tolerate metformin 2/2 diarrhea, would like to try a different medication -will prescribe Januvia, and recheck blood sugars in 1 month to evaluate response to new therapy Assessment & Plan (08/18/2020 12:44 PM WELDING INSTRUCTOR): Stable, well controlled, will continue emphaglifozin-metformin combo pill and check A1c today Assessment & Plan (05/10/2018 8:58 AM CDT): Continue current treatment plan. Foot care discussed. 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 -continue to monitor aspatient does say she feels exhausted all of the time. Hyperlipidemia 10/26/2014 Overview (12/29/2016): Hyperlipidemia Assessment & Plan (08/18/2020 12:43 PM WELDING INSTRUCTOR): Stable, well controlled, continue atorvastatin 80 mg Essential hypertension 10/26/2014 Overview (12/29/2016): Essential hypertension Assessment & Plan (10/25/2020 2:14 PM WELDING INSTRUCTOR): Blood pressure is well controlled, no signs [...] measurement Assessment & Plan (10/25/2020 2:14 PM WELDING INSTRUCTOR): Will check TSH today, patient reprots she feels tired all of the time, but does not have any other symptoms of hypo or hyper-thyroidism. Assessment & Plan (08/18/2020 12:44 PM WELDING INSTRUCTOR): Stable, no signs or symptoms of hypo [...] depression Assessment & Plan (10/25/2020 2:12 PM WELDING INSTRUCTOR): Improving, patient has started sertraline again, feels better, mood is improving. Assessment & Plan (09/27/2020 2:04 PM WELDING INSTRUCTOR): Discussed with patient risk of GI bleeding combination of NSAIDs and sertraline, that likely occurs with all SSRIs Patient prefers emma continue with duloexetine -patient to work on some lifestyle changes for weight loss, which can also help with mood such as get out and exercise more Assessment & Plan (08/18/2020 12:48 PM WELDING INSTRUCTOR): Patient is stress related to caring for and elderly mother Unable to travel, and limited social interactions due to COVID-19 He constipation, will continue Cymbalta 60 mg Continue to follow with patient to evaluate response to therapy Osteoarthritis 10/12/2003 Assessment & Plan (10/25/2020 2:12 PM WELDING INSTRUCTOR): Not well controlled, continues to have pain [...] often do you attend chur ch or gnosticist services? Never 03/22/2021 Do you belong to any clubs o r organizations such as religious groups, unions, fraternal or athletic groups, or [...] on file Legal Sex Female 6:18 PM WELDING INSTRUCTOR Gender Identity Not on file Sexual Orientation Not on file Last Filed Vital Signs Vital Sign Reading Time Taken Comments Blood Pressure 146/84 10/04/2024 2:04 PM WELDING INSTRUCTOR Pulse 88 10/04/2024 2:04 PM WELDING INSTRUCTOR Temperature 36.6 C (97.8 F) 10/04/2024 2:04 PM WELDING INSTRUCTOR Respiratory Rate 18 10/04/2024 2:04 PM WELDING INSTRUCTOR Oxygen Saturation 97% 10/04/2024 2:04 PM WELDING INSTRUCTOR Inhaled Oxygen Concentration - - Weight 92.5 kg (204 lb) 10/04/2024 2:04 PM WELDING INSTRUCTOR Height 160 cm (5' 3 ) 10/04/2024 2:04 PM WELDING INSTRUCTOR Body Mass Index 36.14 10/04/2024 2:04 PM WELDING INSTRUCTOR Plan of Treatment Not on file Procedures Procedure Name Priority Date/Time Associated Diagnosis Comments SCREENING MAMMOGRAM LEFT W CONG UNILATERAL ONLY Schedule Routine, Read Routine (OP Routine) 11/17/2024 2:07 PM WELDING INSTRUCTOR Screening mammogram, encounter for EGFR STAT 04/11/2023 7:19 PM CDT HEMOGLOBIN A1C Routine 03/16/2021 6:27 AM CDT DIABETIC EYE EXAM Routine 12/06/2020 LIPID PANEL Routine 10/25/2020 12:00 PM WELDING INSTRUCTOR Annual physical exam ALBUMIN CREATININE RATIO, URINE Routine 10/25/2020 12:00 PM WELDING INSTRUCTOR Type 2 diabetes mellitus with other circulatory complication, without long-term current use of insulin (HCC) DEXA AXIAL SKELETON BONE DENSITY 1 OR MORE SITES Schedule Routine, Read Routine (OP Routine) 10/06/2019 1:00 PM WELDING INSTRUCTOR Asymptomatic menopause COLONOSCOPY IMAGES 11/17/2015 from Last 3 Months or Most Recently Relevant to Health Maintenance Results * Screening Mammogram Left W Cong Unilateral Only (11/17/2024 2:07 PM WELDING INSTRUCTOR) Anatomical Region Laterality Modality Breast Left Mammography Narrative 11/19/2024 11:42 AM WELDING INSTRUCTOR Mammogram Technique: Left Breast Digital Breast Tomosynthesis, Unilateral C-view 2D Screening mammogram. Views obtained: left craniocaudal and left mediolateral oblique. Computer Aided Detection was performed. Mammogram Findings: The present examination has been compared to prior imaging studies performed at [facility] on 09/20/2021, 09/21/2022 and 11/16/2023. There [...] compared to prior imaging studies performed at [facility] on 09/20/2021, 09/21/2022 and 11/16/2023. There [...] 7:19 PM CDT 04/11/2023 7:29 PM CDT Result [facility] Kris Pan MD LAB BLOOD ORDERABLES Final R esult [facility] [address] [facility] [place] [address] * (ABNORMAL) Hemoglobin A1c (03/16/2021 6:27 AM CDT) Hgb A1C 8.1(H) 4.0 - 5.6 % [facility] Estimated Average Glucose 186 mg/dL CHUCK Comment: The ADA recommends reporting an estimated Average Glucose (eAG) with all Hemoglobin A1c results using the equation derived from a study of 507 normal and diabetic adults. Minority populations were underrepresented and children were not included. (Diabetes Care 31:6530-8638, 2008). The eAG is not equivalent to a fasting glucose. Blood specimen (specimen) 03/16/2021 6:27 AM CDT 03/16/2021 7:21 AM CDT Result [facility] Heike Lau NP LAB BLOOD ORDERABLES Final R esult [facility] [address] Department [place] [address] * Diabetic Eye Exam (12/06/2020) Result [facility] Johnny Arellano MD HEALTH MAINTENANCE Edited Result - Final * Albumin Creatinine Ratio, Urine (10/25/2020 12:00 PM WELDING INSTRUCTOR) Albumin Ur 25.3 mg/L CHUCK Comment: Interpretive Data No reference range established. Current interpretive data was last revised 2019. Creatinine Ur 108.3 mg/dL CHUCK Comment: Interpretive Data No reference range established. Current interpretive data was last revised 2019. Albumin Creatinine Ratio, Ur 23 1 - 29 mg/g [facility] Urine 10/25/2020 12:0 0 PM WELDING INSTRUCTOR 10/25/2020 4:42 PM WELDING INSTRUCTOR Result [facility] Bradley Rubin MD LAB URINE ORDERABLES Tangela garcia Result [facility] [address] Department of Laboratories [place] [id number] * (ABNORMAL) Lipid panel (10/25/2020 12:00 PM WELDING INSTRUCTOR) Cholesterol 216(H) 30 - 199 mg/dL CHUCK [...] CHUCK Blood specimen (specimen) 10/25/2020 12:00 PM WELDING INSTRUCTOR 10/25/2020 4:42 PM WELDING INSTRUCTOR us Bradley Rubin MD LAB BLOOD ORDERABLES Tangela l Result [facility] [address] Department [place] [address] * Dexa Axial Skeleton Bone Density 1 or 2 Site (10/06/2019 1:00 PM WELDING INSTRUCTOR) Anatomical Region Laterality Modality Body N/A Other 10/06/2019 1:11 PM WELDING INSTRUCTOR Impressions 10/06/2019 1:15 PM WELDING INSTRUCTOR Normal bone mineral density of the spine. Bone mineral density of the left hip falls within osteopenia range. In comparison to previous examination, there is increased bone mineral density of the spine and left hip. Electronically signed by: Janeen Riojas M.D. Narrative 10/06/2019 1:15 PM WELDING INSTRUCTOR Examination: Bone densitometry of the lumbar spine [...] to Health Maintenance Insurance AETNA MEDICARE GOLD [facility] Address: [address] [address] [place] [address] UHC MEDICARE ADVANTAGE [facility] Address: [address] [address] [place] [address] [facility] AETNA MEDICARE GOLD AETNA MEDICARE GOLD Advance Directives For more information, please contact: [phone] Documents on File Type Date Recorded Patient Pen And Pencil Repairer Expl anation ADVANCE DIRECTIVE 03/18/2021 10:38 AM JENNIFER R OF STONE CLEANER-MEDICAL ADVANCE DIRECTIVE 08/10/2017 9:07 AM JENNIFER Garcia OF STONE CLEANER * Full Code (Latest Code Status on File) Date Activated Date Inactivated Comments 03/15/2021 9:40 PM 03/17/2021 7:03 PM Care Teams Associate Director Of Nursing Relationship Specialty Start Date End Date Brijesh Cardenas MD PCP - General Family Medicine 07/12/22 Torri Johnson, PT Physical Therapist Physical Therapy 04/18/18 Dustin Tim, PT Physical Therapist Physical Therapy 04/26/18 Jong Reeves, CONCESSIONIST Physical Therapist Physical Therapy 05/08/18 Miscellaneous, Not In File 03/17/21
--- OUTSIDE RECORDS SUMMARY | 2025-01-21 03:24 | XMS_ITS | Encounter Summary ---
Author Organization [facility] Address 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
--- OUTSIDE RECORDS SUMMARY | 2025-01-21 03:24 | XMS_ITS | Clinical Summary ---
Author Organization [facility] Address [address] [place] [address] Care Team Providers Care Energy Assistant Name Role Phone Torri Johnson PT Unavailable Unavail able Dustin Tim PT Unavailable Unavailab Jong Brunson PROMOTIONAL REPRESENTATIVE Unavailable Unavaila ble Miscellaneous, Not In File Unavailable Unava Brijesh Hdz MD Primary Care Provider [phone] Allergies Active Allergy Reactions Criticality Noted Date [...] 05/31/2021 Assessment & Plan (09/13/2021 1:57 PM THEATER COMPANY PRODUCER): Not well controlled, had MRSA infection requiring removal of all surgical hardware Taking hydrocodone for pain Per patient bone is healing well Home PT and home nursing of present for infusions, receiving daily vancomycin Assessment & Plan (08/10/2021 7:53 PM THEATER COMPANY PRODUCER): Stable improving, has completed course of antibiotics [...] encouraged to get back in with her edi specialist. She wants, we have two edi specialist in our group if it is [...] 11/07/2017 Assessment & Plan (09/27/2020 2:05 PM THEATER COMPANY PRODUCER): Not well controlled, patient weight is stable [...] therapy Assessment & Plan (10/25/2020 2:09 PM THEATER COMPANY PRODUCER): Patient is better tolerating Januvia, will continue current dose and check a1c today Assessment & Plan (09/27/2020 2:03 PM THEATER COMPANY PRODUCER): Does not want to check a1c today -unknown control, patient had high carbohydrate meals during holiday season -cannot tolerate metformin 2/2 diarrhea, would like to try a different medication -will prescribe Januvia, and recheck blood sugars in 1 month to evaluate response to new therapy Assessment & Plan (08/18/2020 12:44 PM THEATER COMPANY PRODUCER): Stable, well controlled, will continue emphaglifozin-metformin combo pill and check A1c today Assessment & Plan (05/10/2018 8:58 AM CDT): Continue current treatment plan. Foot care discussed. 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 -continue to monitor aspatient does say she feels exhausted all of the time. Hyperlipidemia 10/26/2014 Overview (12/29/2016): Hyperlipidemia Assessment & Plan (08/18/2020 12:43 PM THEATER COMPANY PRODUCER): Stable, well controlled, continue atorvastatin 80 mg Essential hypertension 10/26/2014 Overview (12/29/2016): Essential hypertension Assessment & Plan (10/25/2020 2:14 PM THEATER COMPANY PRODUCER): Blood pressure is well controlled, no signs [...] measurement Assessment & Plan (10/25/2020 2:14 PM THEATER COMPANY PRODUCER): Will check TSH today, patient reprots she feels tired all of the time, but does not have any other symptoms of hypo or hyper-thyroidism. Assessment & Plan (08/18/2020 12:44 PM THEATER COMPANY PRODUCER): Stable, no signs or symptoms of hypo [...] depression Assessment & Plan (10/25/2020 2:12 PM THEATER COMPANY PRODUCER): Improving, patient has started sertraline again, feels better, mood is improving. Assessment & Plan (09/27/2020 2:04 PM THEATER COMPANY PRODUCER): Discussed with patient risk of GI bleeding combination of NSAIDs and sertraline, that likely occurs with all SSRIs Patient prefers emma continue with duloexetine -patient to work on some lifestyle changes for weight loss, which can also help with mood such as get out and exercise more Assessment & Plan (08/18/2020 12:48 PM THEATER COMPANY PRODUCER): Patient is stress related to caring for and elderly mother Unable to travel, and limited social interactions due to COVID-19 He constipation, will continue Cymbalta 60 mg Continue to follow with patient to evaluate response to therapy Osteoarthritis 10/12/2003 Assessment & Plan (10/25/2020 2:12 PM [employer]ATER COMPANY PRODUCER): Not well controlled, continues to have pain [...] Team Description 01/21/2025 5:00 AM CDT Emergency [facility] Emergency Department [address] [place] [address] 11/17/2024 1:50 PM THEATER COMPANY PRODUCER - 11/17/2024 11:59 PM THEATER COMPANY PRODUCER Hospital Encounter [facility] [address] [place] [phone] Screening mammogram, encounter for Discharge Disposition: Discharge [...] often do you attend chur ch or zoroastrianism services? Never 03/22/2021 Do you belong to [...] on file Legal Sex Female 6:18 PM THEATER COMPANY PRODUCER Gender Identity Not on file Sexual Orientation Not on file Obstetrics History Last Filed Vital Signs Vital Sign [place] Time Taken Comments Blood Pressure 146/84 10/04/2024 2:04 PM THEATER COMPANY PRODUCER Pulse 88 10/04/2024 2:04 PM THEATER COMPANY PRODUCER Temperature 36.6 C (97.8 F) 10/04/2024 2:04 PM THEATER COMPANY PRODUCER Respiratory Rate 18 10/04/2024 2:04 PM THEATER COMPANY PRODUCER Oxygen Saturation 97% 10/04/2024 2:04 PM THEATER COMPANY PRODUCER Inhaled Oxygen Concentration - - Weight 92.5 kg (204 lb) 10/04/2024 2:04 PM THEATER COMPANY PRODUCER Height 160 cm (5' 3 ) 10/04/2024 2:04 PM THEATER COMPANY PRODUCER Body Mass Index 36.14 10/04/2024 2:04 PM THEATER COMPANY PRODUCER Plan of Treatment Health Maintenance Due Date [...] - 2023-2 5 season) 2024 12/15/2020, 11/17/2020 DTaP/Tdap/Td Vaccine (2 - Td or Tdap) 06/16/2024 06/16/2014, 01/15/2004 Influenza Vaccine (Season Ended) 2025 08/10/2021, 07/06/2020, 07/31/2019, Additional history exists Colon Cancer Screening-CT Colonography Discontinued 11/17/2015, 11/17/2015, [...] Read Routine (OP Routine) 11/17/2024 2:07 PM THEATER COMPANY PRODUCER Screening mammogram, encounter for EGFR STAT 04/11/2023 7:19 PM CDT HEMOGLOBIN A1C Routine 03/16/2021 6:27 AM CDT DIABETIC EYE EXAM Routine 12/06/2020 LIPID PANEL Routine 10/25/2020 12:00 PM THEATER COMPANY PRODUCER Annual physical exam ALBUMIN CREATININE RATIO, URINE Routine 10/25/2020 12:00 PM THEATER COMPANY PRODUCER Type 2 diabetes mellitus with other circulatory complication, without long-term current use of insulin (HCC) DEXA AXIAL SKELETON BONE DENSITY 1 OR MORE SITES Schedule Routine, Read Routine (OP Routine) 10/06/2019 1:00 PM THEATER COMPANY PRODUCER Asymptomatic menopause COLONOSCOPY IMAGES 11/17/2015 from Last 3 Months or Most Recently Relevant to Health Maintenance Results * Screening Mammogram Left W Cong Unilateral Only (11/17/2024 2:07 PM [employer]ATER COMPANY PRODUCER) Anatomical Region Laterality Modality Breast Left Mammography Narrative 11/19/2024 11:42 AM THEATER COMPANY PRODUCER Mammogram Technique: Left Breast Digital Breast Tomosynthesis, Unilateral C-view 2D Screening mammogram. Views obtained: left craniocaudal and left mediolateral oblique. Computer Aided Detection was performed. Mammogram Findings: The present examination has been compared to prior imaging studies performed at [facility] on 09/20/2021, 09/21/2022 and 11/16/2023. There [...] compared to prior imaging studies performed at [facility] on 09/20/2021, 09/21/2022 and 11/16/2023. There [...] BLOOD ORDERABLES Final R esult CHUCK MORRIS (BETHEL) [address] [facility] Department of Laboratories [place], [place] [id number] * (ABNORMAL) Hemoglobin A1c (03/16/2021 6:27 AM CDT) Hgb A1C 8.1(H) 4.0 - 5.6 % CHUCK CAPELLAN Estimated Average Glucose 186 mg/dL CHUCK CAPELLAN Comment: The ADA recommends reporting an estimated Average Glucose (eAG) with all Hemoglobin A1c results using the equation derived from a study of 507 normal and diabetic adults. Minority populations were underrepresented and children were not included. (Diabetes Care 31:9555-6614, 2008). The eAG is not equivalent to a fasting glucose. Blood specimen (specimen) 03/16/2021 6:27 AM CDT 03/16/2021 7:21 AM CDT Heike Lau NP LAB BLOOD ORDERABLES Final R esult Performing Organization Address [facility] Co de Phone Number CHUCK [address] [address] Department [place] [address] * Diabetic Eye Exam (12/06/2020) Result [facility] Historical Provider HEALTH MAINTENANCE Edited Result - Final * Albumin Creatinine Ratio, Urine (10/25/2020 12:00 PM THEATER COMPANY PRODUCER) Albumin Ur 25.3 mg/L CHUCK Comment: Interpretive Data No reference range established. Current interpretive data was last revised 2019. Creatinine Ur 108.3 mg/dL CHUCK Comment: Interpretive Data No reference range established. Current interpretive data was last revised 2019. Albumin Creatinine Ratio, Ur 23 1 - 29 mg/g CHUCK Urine 10/25/2020 12:0 0 PM THEATER COMPANY PRODUCER 10/25/2020 4:42 PM THEATER COMPANY PRODUCER Bradley Rubin MD LAB URINE ORDERABLES Tangela l Result Performing Organization Address [facility] Co de Phone Number [facility] [place] [address] [address] Department [place] [address] * (ABNORMAL) Lipid panel (10/25/2020 12:00 PM THEATER COMPANY PRODUCER) Cholesterol 216(H) 30 - 199 mg/dL CHUCK [...] CHUCK Blood specimen (specimen) 10/25/2020 12:00 PM THEATER COMPANY PRODUCER 10/25/2020 4:42 PM THEATER COMPANY PRODUCER us Bradley Rubin MD LAB BLOOD ORDERABLES Tangela l Result CHUCK [address] [address] Department [place] [address] * Dexa Axial Skeleton Bone Density 1 or 2 Site (10/06/2019 1:00 PM THEATER COMPANY PRODUCER) Anatomical Region Laterality Modality Body N/A Other 10/06/2019 1:11 PM THEATER COMPANY PRODUCER Impressions 10/06/2019 1:15 PM THEATER COMPANY PRODUCER Normal bone mineral density of the spine. Bone mineral density of the left hip falls within osteopenia range. In comparison to previous examination, there is increased bone mineral density of the spine and left hip. Electronically signed by: Janeen Riojas M.D. Narrative 10/06/2019 1:15 PM THEATER COMPANY PRODUCER Examination: Bone densitometry of the lumbar spine [...] to Health Maintenance Insurance AETNA MEDICARE GOLD [facility] HMO REF UHC MEDICARE ADVANTAGE [facility] GOLD REF [facility] MEDICARE Address: [facility] [id number] [place] [phone] AETNA MEDICARE GOLD AETNA MEDICARE GOLD Advance Directives For more information, please contact: [phone] Documents on File Type Date Recorded Patient Client Service And Consulting Manager Expl anation ADVANCE DIRECTIVE 03/18/2021 10:38 AM JENNIFER R OF [place] T[employer] LOADER-MEDICAL ADVANCE DIRECTIVE 08/10/2017 9:07 AM JENNIFER R OF [employer] T[employer] LOADER * Full Code (Latest Code Status on File) Date Activated Date Inactivated Comments 03/15/2021 9:40 PM 03/17/2021 7:03 PM Care Teams Energy Assistant Relationship Specialty Start Date End Date Brijesh Cardenas MD PCP - General Family Medicine 07/12/22 Torri Johnson, PT Physical Therapist Physical Therapy 04/18/18 Dustin Tim, PT Physical Therapist Physical Therapy 04/26/18 Jong Reeves, PROMOTIONAL REPRESENTATIVE Physical Therapist Physical Therapy 05/08/18 Miscellaneous, Not In File 03/17/21
--- OUTSIDE RECORDS SUMMARY | 2025-01-21 03:24 | XMS_ITS | Encounter Summary ---
Author Organization [facility] Address [address] [place] [address] Care Team Providers Care Director Report Name Role Phone Smith Islas MD Primary Care Provider [phone] Encounter Details Date Type Department Care Team (Late st Contact Info) Description 06/19/2007 Outpatient Historical [facility] Internal Medicine [address] [address] Smith Islas MD [address] [place] [phone] Social History Tobacco Use Types Packs/Day Years Used Date Smoking Tobacco: Never Assessed Comments Unknown Sex and Gender Information Value Date Recorded Sex Assigned at Not on file Legal Sex Female 3:30 AM GRAPHICS MANAGER Gender Identity Not on file Sexual [...] Body Mass Index 34.28 10/14/2003 10:30 AM GRAPHICS MANAGER documented in this encounter Plan of Treatment Not on file documented as of this encounter Visit Diagnoses Not on filedocumented in this encounter Care Teams Director Report Relationship Specialty Start Date End Date Smith Islas MD [address] [place] [phone] PCP - General 10/22/03 07/11/15 documented as of this encounter
--- OUTSIDE RECORDS SUMMARY | 2025-01-21 03:24 | XMS_ITS | Encounter Summary ---
Author Organization [facility] Address [address] [place] [address] Care Team Providers Care Finished Stock Inspector Name Role Phone Smith Islas MD Primary Care Provider [phone] Encounter Details Date Type Department Care Team (Late st Contact Info) Description 08/31/2006 Outpatient Historical [facility] Internal Medicine [address] [address] Smith Islas MD [address] [place] [phone] Social History Tobacco Use Types Packs/Day Years Used Date Smoking Tobacco: Never Assessed Comments Unknown Sex and Gender Information Value Date Recorded Sex Assigned at Not on file Legal Sex Female 3:30 AM MANAGER OF COMPENSATION Gender Identity Not on file Sexual Orientation Not on file documented as of this encounter Last Filed Vital Signs Vital Sign [place] Time Taken Comments Blood Pressure 130/80 08/31/2006 9:30 AM MANAGER OF COMPENSATION Pulse - - Temperature - - Respiratory Rate - - Oxygen Saturation - - Inhaled Oxygen Concentration - - Weight 98 kg (216 lb) 08/31/2006 9:30 AM MANAGER OF COMPENSATION Height - - Body Mass Index 35.94 10/14/2003 10:30 AM MANAGER OF COMPENSATION documented in this encounter Plan of Treatment Not on file documented as of this encounter Visit Diagnoses Not on filedocumented in this encounter Care Teams Finished Stock Inspector Relationship Specialty Start Date End Date Smith Islas MD [address] [place] [phone] PCP - General 10/22/03 07/11/15 documented as of this encounter
--- OUTSIDE RECORDS SUMMARY | 2025-01-21 03:24 | XMS_ITS | Encounter Summary ---
Author Organization [facility] Address [address] [place] [address] Care Team Providers Care Hot Kettle Tender Name Role Phone Becka Escobedo MD Primary Care Provider [phone] Encounter Details Date Type Department Care Team (Late st Contact Info) Description 06/19/2007 Orders Only [facility] Internal Medicine [address] [address] Becka Escobedo MD [address] [place] [phone] Social History Tobacco Use Types Packs/Day Years Used Date Smoking Tobacco: Never Assessed Comments Unknown Sex and Gender Information Value Date Recorded Sex Assigned at Not on file Legal Sex Female 3:30 AM POWER LINE INSTALLER Gender Identity Not on file Sexual Orientation Not on file documented as of this encounter Progress Notes * Becka Escobedo MD - 02/07/2008 6:39 PM CDT CENTRAL TEST SCHEDULING DATE: JUN 19, 2007 Note created by: Mary Hagen R 12:22 p Patient Name : MORRIS STOKES Address: [address] [address] D.O.B: 1945 SSN: [id number] Parent/Guardian if applicable: Patient Insurance: [employer] INS[employer] COMPANY ID#: [id number] Group#: ORDER(S) #: [id number] NCV/EMG yoan upper and lower extremity BEST TO CALL CELL. [phone] or home BEST TIME TO CALL: ANYTIME. MAY WE LEAVE MESSAGE AT THAT NUMBER: YES, LEAVE MESSAGE. PLEASE SCHEDULE THE APPOINTMENT AT THE FOLLOWING LOCATION: TEST SCHEDULE [facility]. TEST PRIORITY: 2 - 7 DAYS. as soon as you can ORDERING PHYSICIAN: BECKA ESCOBEDO MD OFFICE MACADAM RAKER & PHONE: Mary Hagen R ORDER PRINTED [...] 06/19/2007. risks explained LAB ORDERS: Order number: [id number] Test Ordered: NCV/EMG UPPER EXTREMITY RIGHT Order number: [id number] Test Ordered: NCV/EMG LOWER EXTREMITY RIGHT Order number: [id number] Test Ordered: NCV/EMG UPPER EXTREMITY LEFT Order number: [id number] Test Ordered: NCV/EMG LOWER EXTREMITY LEFT Patient [...] on filedocumented in this encounter Care Teams Hot Kettle Tender Relationship Specialty Start Date End Date Becka Escobedo MD [address] [place] [phone] PCP - General 10/22/03 07/11/15 documented as of this encounter
--- OUTSIDE RECORDS SUMMARY | 2025-01-21 03:24 | XMS_ITS | Encounter Summary ---
Author Organization [facility] Address [address] [place] [address] Care Team Providers Care Sales Representative Wire Rope Name Role Phone Smith Islas MD Primary Care Provider [phone] Encounter Details Date Type Department Care Team (Late st Contact Info) Description 10/14/2003 Outpatient Historical [facility] Internal Medicine [address] [address] Smith Islas MD [address] [place] [phone] Social History Tobacco Use Types Packs/Day Years Used Date Smoking Tobacco: Never Assessed Comments Unknown Sex and Gender Information Value Date Recorded Sex Assigned at Not on file Legal Sex Female 3:30 AM HR ADMINISTRATIVE ASSISTANT Gender Identity Not on file Sexual Orientation Not on file documented as of this encounter Last Filed Vital Signs Vital Sign [place] Time Taken Comments Blood Pressure 140/90 10/14/2003 10:30 AM HR ADMINISTRATIVE ASSISTANT Pulse - - Temperature - - Respiratory Rate - - Oxygen Saturation - - Inhaled Oxygen Concentration - - Weight 96.2 kg (212 lb) 10/14/2003 10:30 AM HR ADMINISTRATIVE ASSISTANT Height 165.1 cm (5' 5 ) 10/14/2003 10:30 AM HR ADMINISTRATIVE ASSISTANT Body Mass Index 35.28 10/14/2003 10:30 AM HR ADMINISTRATIVE ASSISTANT documented in this encounter Plan of Treatment Not on file documented as of this encounter Visit Diagnoses Not on filedocumented in this encounter Care Teams Sales Representative Wire Rope Relationship Specialty Start Date End Date Smith Islas MD [address] [place] [phone] PCP - General 10/22/03 07/11/15 documented as of this encounter
--- OUTSIDE RECORDS SUMMARY | 2025-01-21 03:24 | XMS_ITS | Encounter Summary ---
Author Organization [facility] Address [address] [place] [address] Care Team Providers Care Roll Or Tape Edge Machine Operator Name Role Phone Smith Islas MD Primary Care Provider [phone] Encounter Details Date Type Department Care Team (Late st Contact Info) Description 01/15/2007 Orders Only [facility] Internal Medicine [address] [address] Smith Islas MD [address] [place] [phone] Social History Tobacco Use Types Packs/Day Years Used Date Smoking Tobacco: Never Assessed Comments Unknown Sex and Gender Information Value Date Recorded Sex Assigned at Not on file Legal Sex Female 3:30 AM COST ACCOUNTANT Gender Identity Not on file Sexual Orientation Not on file documented as of this encounter Progress Notes * Smith Islas MD - 02/13/2008 5:44 PM CDT TIME:02:50 pm PATIENT`S HOME PHONE: PATIENT`S WORK PHONE: PATIENT`S INSURANCE: [facility] [employer] WHO TOOK THE CALL: Maribel Cobb L GENERAL INFORMATION WHO CALLED: Pharmacy called. PHARMACY NUMBER: [phone] SECTION 1: REQUESTED ACTION licasl 01/15/07 at [...] on filedocumented in this encounter Care Teams Roll Or Tape Edge Machine Operator Relationship Specialty Start Date End Date Smith Islas MD [address] [place] [phone] PCP - General 10/22/03 07/11/15 documented as of this encounter
--- OUTSIDE RECORDS SUMMARY | 2025-01-21 03:24 | XMS_ITS | Encounter Summary ---
Author Organization [facility] Address [address] [place] [address] Care Team Providers Care Secretary Receptionist Name Role Phone Smith Islas MD Primary Care Provider [phone] Encounter Details Date Type Department Care Team (Late st Contact Info) Description 03/01/2007 Outpatient Historical [facility] Internal Medicine [address] [address] Smith Islas MD [address] [place] [phone] Social History Tobacco Use Types Packs/Day Years Used Date Smoking Tobacco: Never Assessed Comments Unknown Sex and Gender Information Value Date Recorded Sex Assigned at Not on file Legal Sex Female 3:30 AM STONEWORKING SANDER Gender Identity Not on file Sexual Orientation [...] Body Mass Index 35.45 10/14/2003 10:30 AM STONEWORKING SANDER documented in this encounter Plan of Treatment Not on file documented as of this encounter Visit Diagnoses Not on filedocumented in this encounter Care Teams Secretary Receptionist Relationship Specialty Start Date End Date Smith Islas MD [address] [place] [phone] PCP - General 10/22/03 07/11/15 documented as of this encounter
--- OUTSIDE RECORDS SUMMARY | 2025-01-21 03:24 | XMS_ITS | Encounter Summary ---
Author Organization [facility] Address [address] [place] [address] Care Team Providers Care Butcher Apprentice Name Role Phone Smith Islas MD Primary Care Provider [phone] Encounter Details Date Type Department Care Team (Late st Contact Info) Description 11/30/2006 Orders Only [facility] Internal Medicine [address] [address] Smith Islas MD [address] [place] [phone] Social History Tobacco Use Types Packs/Day Years Used Date Smoking Tobacco: Never Assessed Comments Unknown Sex and Gender Information Value Date Recorded Sex Assigned at Not on file Legal Sex Female 3:30 AM DIAMOND WHEEL EDGER Gender Identity Not on file Sexual Orientation [...] no significant smoking history. 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 LAB ORDERS: 3 mo Order number: [id number] Test Ordered: COMPREHENSIVE METABOLIC PANEL W/ GLOMERULAR FILTRATION RATE, ESTIMATED (EGFR) 28970 Order number: [id number] Test Ordered: HEMOGLOBIN A1c 496 Order number: [id number] Test Ordered: LIPID PANEL 7600 Order number: [id number] Test Ordered: TSH 899 311-DEPRESSION doing better [...] on filedocumented in this encounter Care Teams Butcher Apprentice Relationship Specialty Start Date End Date Smith Islas MD [address] [place] [phone] PCP - General 10/22/03 07/11/15 documented as of this encounter
--- OUTSIDE RECORDS SUMMARY | 2025-01-21 03:24 | XMS_ITS | Encounter Summary ---
Author Organization [facility] Address [address] [place] [address] Care Team Providers Care Setter Cold Rolling Machine Name Role Phone Becka Escobedo MD Primary Care Provider [phone] Encounter Details Date Type Department Care Team (Late st Contact Info) Description 03/01/2007 Orders Only [facility] Internal Medicine [address] [address] Becka Escobedo MD [address] [place] [phone] Social History Tobacco Use Types Packs/Day Years Used Date Smoking Tobacco: Never Assessed Comments Unknown Sex and Gender Information Value Date Recorded Sex Assigned at Not on file Legal Sex Female 3:30 AM COMMUNITY DEVELOPMENT WORKER Gender Identity Not on file Sexual Orientation Not on file documented as of this encounter Progress Notes * Becka Escobedo MD - 02/12/2008 3:12 PM CDT CENTRAL TEST SCHEDULING DATE: MAR 01, 2007 Note created by: Rossi Herrera E 01:04 p Patient Name : MORRIS STOKES Address: [address] [address] D.O.B: 1945 SSN: [id number] Parent/Guardian if applicable: Patient Insurance: [employer] ID#: [id number] Group#: ORDER(S) #: [id number] mamm PLEASE SCHEDULE THE APPOINTMENT AT THE FOLLOWING LOCATION: [facility] [phone]. SPECIAL SCHEDULING INSTRUCTIONS: pt to scheduled ORDERING PHYSICIAN: BECKA ESCOBEDO MD OFFICE REGISTRATION REP & PHONE: Rossi Herrera E * Becka [...] no significant smoking history. 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 LAB ORDERS: 3mo Order number: [id number] Test Ordered: COMPREHENSIVE METABOLIC PANEL & GFR 1112 Order number: [id number] Test Ordered: HEMOGLOBIN A1C 1814 Order number: [id number] Test Ordered: LIPID PANEL 1078 Order number: [id number] Test Ordered: TSH 1720 272.4-HYPERLIPIDEMIA discussed, cont med--try take daily 311-DEPRESSION discussed, cont med--reassess RETURN VISIT : Patient instructed to return in 3 months. Electronically Signed by: Becka Escobedo MD on Thursday, March 01, 2007 documented in this encounter Plan of Treatment Not on file documented as of this encounter Visit Diagnoses Not on filedocumented in this encounter Care Teams Setter Cold Rolling Machine Relationship Specialty Start Date End Date Becka Escobedo MD [address] [place] [phone] PCP - General 10/22/03 07/11/15 documented as of this encounter
--- OUTSIDE RECORDS SUMMARY | 2025-01-21 03:24 | XMS_ITS | Encounter Summary ---
Author Organization [facility] Address [address] [place] [address] Care Team Providers Care Skills Instructor Name Role Phone Smith Islas MD Primary Care Provider [phone] Encounter Details Date Type Department Care Team (Late st Contact Info) Description 10/15/2003 Outpatient Historical [facility] [address] [place] [address] Sangita Carter MD Social History Tobacco Use Types Packs/Day Years Used Date Smoking Tobacco: Never Assessed Comments Unknown Sex and Gender Information Value Date Recorded Sex Assigned at Not on file Legal Sex Female 3:30 AM RESERVATIONIST Gender Identity Not on file Sexual Orientation Not on file documented as of this encounter Plan of Treatment Not on file documented as of this encounter Visit Diagnoses Not on filedocumented in this encounter Care Teams Skills Instructor Relationship Specialty Start Date End Date Smith Islas MD [address] [place] [phone] PCP - General 10/22/03 07/11/15 documented as of this encounter
--- OUTSIDE RECORDS SUMMARY | 2025-01-21 03:24 | XMS_ITS | Encounter Summary ---
Author Organization [facility] Address [address] [place] [address] Care Team Providers Care Box Toe Flanger Stitchdowns Name Role Phone Smith Islas MD Primary Care Provider [phone] Encounter Details Date Type Department Care Team (Latest Contact Info) Description 02/26/[address] [facility] Internal Medicine [address] [address] Smith Islas MD [address] [place] [phone] DM w/o Complication Type II (CMS/HCC) (Primary Dx) Social History Tobacco Use Types Packs/Day Years Used Date Smoking Tobacco: Never Assessed Comments Unknown Sex and Gender Information Value Date Recorded Sex Assigned at Not on file Legal Sex Female 3:30 AM PUTTY GLAZER Gender Identity Not on file Sexual Orientation [...] MD CHEMISTRY ORDERABLES Edited Performing Organization Address [facility] Phone Number INTERFACE SYSTEM Refer [...] are available on the [facility] Intranet at: [email or web address] Select: Lab Policies and Procedures Select: Reference Ranges - Lipids 02/26/2007 8:45 AM CDT Smith Islas MD CHEMISTRY ORDERABLES Edited Performing Organization Address [facility] Phone Number INTERFACE SYSTEM Refer to clinic/hospital department * (ABNORMAL) HEMOGLOBIN A1C (02/26/2007 8:45 AM CDT) HEMOGLOBIN A1C 6.7(H) 4.1 - 6.1 % of Hgb INTERFACE SYSTEM GLUCOSE, MEAN BLOOD 161 mg/dL INTERFACE SYSTEM 02/26/2007 8:45 AM CDT Smith Islas MD CHEMISTRY ORDERABLES Edited Performing Organization Address [facility] Phone Number INTERFACE SYSTEM Refer [...] is available on the [facility] Intranet at: [email or web address] Select: Lab Policies and Procedures Select: Reference Ranges - GFR 02/26/2007 8:45 AM CDT us Smith Islas MD CHEMISTRY ORDERABLES Edited INTERFACE SYSTEM Refer to clinic/hospital department documented in this encounter Visit Diagnoses Diagnosis Type II or unspecified type diabetes mellitus without mention of complication, not stated as uncontrolled- Primary documented in this encounter Care Teams Box Toe Flanger Stitchdowns Relationship Specialty Start Date End Date Smith Islas MD [address] [place] [phone] PCP - General 10/22/03 07/11/15 documented as of this encounter
--- OUTSIDE RECORDS SUMMARY | 2025-01-21 03:24 | XMS_ITS | Encounter Summary ---
Author Organization [facility] Address [address] [place] [address] Care Team Providers Care Commutator Assembler Name Role Phone Smith Islas MD Primary Care Provider [phone] Encounter Details Date Type Department Care Team (Late st Contact Info) Description 04/09/2007 Outpatient Historical [facility] Internal Medicine [address] [address] Smith Islas MD [address] [place] [phone] Social History Tobacco Use Types Packs/Day Years Used Date Smoking Tobacco: Never Assessed Comments Unknown Sex and Gender Information Value Date Recorded Sex Assigned at Not on file Legal Sex Female 3:30 AM CHIEF HOSPITAL ADMINISTRATOR Gender Identity Not on file Sexual [...] Body Mass Index 34.95 10/14/2003 10:30 AM CHIEF HOSPITAL ADMINISTRATOR documented in this encounter Plan of Treatment Not on file documented as of this encounter Visit Diagnoses Not on filedocumented in this encounter Care Teams Commutator Assembler Relationship Specialty Start Date End Date Smith Islas MD [address] [place] [phone] PCP - General 10/22/03 07/11/15 documented as of this encounter
--- OUTSIDE RECORDS SUMMARY | 2025-01-21 03:24 | XMS_ITS | Encounter Summary ---
Author Organization [facility] Address [address] [place] [address] Care Team Providers Care Ribbon Winder Name Role Phone Smith Ilsas MD Primary Care Provider [phone] Encounter Details Date Type Department Care Team (Latest Contact Info) Description 10/22/2003 Inpatient Historical [facility] Davonte Bermudez MD [address] [facility] [address] [place] [address] SPONDYLOLISTHESIS (Primary Dx) Social History Tobacco Use Types Packs/Day Years Used Date Smoking Tobacco: Never Assessed Comments Unknown Sex and Gender Information Value Date Recorded Sex Assigned at Not on file Legal Sex Female 3:30 AM ROPE LAYING MACHINE OPERATOR Gender Identity Not on file Sexual Orientation Not on file documented as of this encounter Plan of Treatment Not on file documented as of this encounter Visit Diagnoses Diagnosis Congenital spondylolisthesis- Primary documented in this encounter Care Teams Ribbon Winder Relationship Specialty Start Date End Date Smith Islas MD [address] [place] [address] [address] [place] [phone] PCP - General 10/22/03 07/11/15 documented as of this encounter
--- OUTSIDE RECORDS SUMMARY | 2025-01-21 03:24 | XMS_ITS | Encounter Summary ---
Author Organization [facility] Address [address] [place] [address] Care Team Providers Care Technology Resource Teacher Name Role Phone Smith Islas MD Primary Care Provider [phone] Encounter Details Date Type Department Care Team (Late st Contact Info) Description 05/29/2007 Orders Only [facility] Internal Medicine [address] [address] Smiht Islas MD [address] [place] [phone] Social History Tobacco Use Types Packs/Day Years Used Date Smoking Tobacco: Never Assessed Comments Unknown Sex and Gender Information Value Date Recorded Sex Assigned at Not on file Legal Sex Female 3:30 AM NECKTIE OPERATOR POCKETS AND PIECES Gender Identity Not on file Sexual Orientation [...] on filedocumented in this encounter Care Teams Technology Resource Teacher Relationship Specialty Start Date End Date Smith Islas MD [address] [place] [phone] PCP - General 10/22/03 07/11/15 documented as of this encounter
--- OUTSIDE RECORDS SUMMARY | 2025-01-21 03:25 | XMS_ITS | Encounter Summary ---
Author Organization [facility] Address [address] [place] [address] Care Team Providers Care All Source Intelligence Analyst Name Role Phone Smith Islas MD Primary Care Provider [phone] Encounter Details Date Type Department Care Team (Late st Contact Info) Description 10/16/2007 Outpatient Historical [facility] Internal Medicine [address] [address] Smith Islas MD [address] [place] [phone] Social History Tobacco Use Types Packs/Day Years Used Date Smoking Tobacco: Never Assessed Comments Unknown Sex and Gender Information Value Date Recorded Sex Assigned at Not on file Legal Sex Female 3:30 AM IRON HANDLER Gender Identity Not on file Sexual Orientation Not on file documented as of this encounter Last Filed Vital Signs Vital Sign Reading Time Taken Comments Blood Pressure 120/70 10/16/2007 2:00 PM IRON HANDLER Pulse - - Temperature 36.2 C (97.1 F) 10/16/2007 2:00 PM IRON HANDLER Respiratory Rate - - Oxygen Saturation - - Inhaled Oxygen Concentration - - Weight 94.3 kg (208 lb) 10/16/2007 2:00 PM IRON HANDLER Height - - Body Mass Index 34.61 10/14/2003 10:30 AM IRON HANDLER documented in this encounter Plan of Treatment Not on file documented as of this encounter Visit Diagnoses Not on filedocumented in this encounter Care Teams All Source Intelligence Analyst Relationship Specialty Start Date End Date Smith Islas MD [address] [place] [phone] PCP - General 10/22/03 07/11/15 documented as of this encounter
--- OUTSIDE RECORDS SUMMARY | 2025-01-21 03:25 | XMS_ITS | Encounter Summary ---
Author Organization [facility] Address [address] [place] [address] Care Team Providers Care Seismograph Helper Name Role Phone Unavailable Primary Care Provider Unavailabl e Encounter Details Date Type Department Care Team (Late st Contact Info) Description 06/19/2023 Lab Requisition [facility] Derm[facility] Lab [address] [place], [place] [address] Ravinder Mcgarry MD [address] [facility] [place] [address] Social History Tobacco [...] AM CDT) Case Report Dermatopathology Report Case: [id number] Authorizing Provider: Ravinder Mcgarry MD Collected: 06/18/2023 03:33 AM Ordering Location: [facility] Derm[facility] Lab Received: 06/20/2023 06:23 AM Pathologist: Viral Potts MD Specimen: Skin, post neck 3:29 PM CDT DERMATOPATHOLOGY LABORATORY Final Diagnosis Specimen A. SKIN, post neck: SUPERFICIAL PERIVASCULAR LYMPHOCYTIC INFILTRATE WITH RARE EOSINOPHILS (L27.0) (see microscopic description and comment) 3:29 PM CDT DERMATOPATHOLOGY LABORATORY Clinical History Psoriasis vs. Tinea vs. Other. Path# [id number] 3:29 PM CDT DERMATOPATHOLOGY LABORATORY Gross [...] characteristic determined by the Dermatopathology Laboratory at [facility], directed by Dr. Tyrese Potts. These tests need not be, and therefore are not, approved by the [place] Food and Drug Administration. The tests are used for clinical purposes. Billing Codes Specimen Charges Stain Charges 29629 1 36900 1 3 3:29 PM CDT DERMATOPATHOLOGY LABORATORY Embedded Images 3 3:29 PM CDT DERMATOPATHOLOGY LABORATORY Pathology/Cytolo gy TISSUE SPECIMEN FROM SKIN / Unknown 06/18/2023 3:33 AM CDT 06/20/2023 6:23 AM CDT us Ravinder Mcgarry MD LAB - PATHOLOGY/CYTOLOGY ORDER OLIVER Final Result DERMATOPATHOLOGY LABORATORY [facility] - Department of Dermatology [address], [address] [phone] documented in this encounter Visit Diagnoses Not on filedocumented in this encounter
--- OUTSIDE RECORDS SUMMARY | 2025-01-21 03:25 | XMS_ITS | Encounter Summary ---
Author Organization [facility] Address [address] [place] [address] Care Team Providers Care Instrument Lens Grinder Name Role Phone Smith Islas MD Primary Care Provider [phone] Encounter Details Date Type Department Care Team (Late st Contact Info) Description 10/04/2007 Orders Only [facility] Internal Medicine [address] [address] Smith Islas MD [address] [place] [phone] Social History Tobacco Use Types Packs/Day Years Used Date Smoking Tobacco: Never Assessed Comments Unknown Sex and Gender Information Value Date Recorded Sex Assigned at Not on file Legal Sex Female 3:30 AM DORMITORY COUNSELOR Gender Identity Not on file Sexual Orientation [...] lab LAB ORDERS: 4 mo Order number: [id number] Test Ordered: COMPREHENSIVE METABOLIC PANEL & GFR 1112 Order number: [id number] Test Ordered: HEMOGLOBIN A1C 1814 Order number: [id number] Test Ordered: LIPID PANEL 1078 Order number: [id number] Test Ordered: TSH 1720 311-DEPRESSION better , [...] on filedocumented in this encounter Care Teams Instrument Lens Grinder Relationship Specialty Start Date End Date Smith Islas MD [address] [place] [phone] PCP - General 10/22/03 07/11/15 documented as of this encounter
--- OUTSIDE RECORDS SUMMARY | 2025-01-21 03:25 | XMS_ITS | Encounter Summary ---
Author Organization [facility] Address [address] [place] [address] Care Team Providers Care Refining Engineer Name Role Phone Smith Islas MD Primary Care Provider [phone] Encounter Details Date Type Department Care Team (Late st Contact Info) Description 11/13/2007 Outpatient [facility] Internal Medicine [address] [address] Smith Islas MD [address] [place] [phone] Social History Tobacco Use Types Packs/Day Years Used Date Smoking Tobacco: Never Assessed Comments Unknown Sex and Gender Information Value Date Recorded Sex Assigned at Not on file Legal Sex Female 3:30 AM LICENSED ELECTRICIAN Gender Identity Not on file Sexual Orientation Not on file documented as of this encounter Plan of Treatment Not on file documented as of this encounter Visit Diagnoses Not on filedocumented in this encounter Care Teams Refining Engineer Relationship Specialty Start Date End Date Smith Islas MD [address] [place] [address] [address] [place] [phone] PCP - General 10/22/03 07/11/15 documented as of this encounter
--- OUTSIDE RECORDS SUMMARY | 2025-01-21 03:25 | XMS_ITS | Encounter Summary ---
Author Organization [facility] Address [address] [place] [address] Care Team Providers Care Scientific Affairs Manager Name Role Phone Becka Escobedo MD Primary Care Provider [phone] Encounter Details Date Type Department Care Team (Late st Contact Info) Description 12/30/2007 Outpatient Historical [facility] Emma Douglas MD [address] [place] [address] [address] [address] Lump or Mass in Breast Social History Tobacco Use Types Packs/Day Years Used Date Smoking Tobacco: Never Assessed Comments Unknown Sex and Gender Information Value Date Recorded Sex Assigned at Not on file 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 [place], [place] [address] Admit Date: 12/30/2007 TIGRE STOKESDEANNE Diaz Sex: F Admit Prov: EMMA JOSEPH Date: 1945 Primary Care Prov: BECKA ESCOBEDO CMRN: [id number] Room: JOSEFINA N: [id number] IMAGING SERVICES Ordering Prov: EMMA JOSEPH Accession Number: [id number] Interpretation Left diagnostic digital mammograms with computer-assisted [...] Procedure Note Car Albright MD - 12/30/[address] [address] Admit Date: 12/30/2007 MORRIS STOKES Sex: F Admit Prov: EMMA JOSEPH Date: 1945 Primary Care Prov: BECKA ESCOBEDO CMRN: [id number] Room: Kris SSN: [id number] IMAGING SERVICES Ordering Prov: EMMA JOSEPH Interpretation [...] AM CDT Narrative 12/30/2007 11:35 AM CDT [address] [address] Admit Date: 12/30/2007 MORRIS STOKES Sex: F Admit Prov: ARCELIA JOSEPHSA Date: 1945 Primary Care Prov: BECKA ESCOBEDO CMRN: [id number] Room: JOSEFINA SSN: [id number] IMAGING SERVICES Ordering Prov: EMMA JOSEPH Accession Number: [id number] Interpretation Left diagnostic digital mammograms with computer-assisted [...] Procedure Note Car Albright MD - 12/30/2007 [facility] [address], [place] [address] Admit Date: 12/30/2007 MORRIS STOKES Sex: F Admit Prov: EMMA JOSEPH Date: 1945 Primary Care Prov: BECKA ESCOBEDO Viral CMRN: [id number] Room: [facility] SSN: [id number] IMAGING SERVICES Ordering Prov: EMMA JOSEPH Interpretation [...] breast documented in this encounter Care Teams Scientific Affairs Manager Relationship Specialty Start Date End Date Becka Escobedo MD [address] [place] [phone] PCP - General 10/22/03 07/11/15 documented as of this encounter
--- OUTSIDE RECORDS SUMMARY | 2025-01-21 03:25 | XMS_ITS | Continuity of Care Document ---
Author Organization [facility] [employer] [facility] Address [address] [facility] [address] [place] [address] Phone Care Team Providers Care In Shop Service Technician Name Role Phone Ronald BALDWIN, Huyen Unavailable [...] affected area 0.00 - Active Mucinex Fast-Max Tbwq-Ych-Qvia Throat 5 mg-10 mg-325 mg-200 mg capsule [...] Diagnoses Date Provider Providers Copied on Encounter [facility], [address], [place], [place], [address], tel:[phone] SEC Colton Rodriguez Complete Exam (chief complaint) Type 2 diabetes mellitus without complicationsV itreous degeneration, left eyePresence of intraocular lens 4 Ronald OD Huyen. [facility] [address], [address], [place], [place], [address], [place]. tel:[phone] Mainor Iqbal MD.Rand burgos Provider: Jose Angel Ponce, [address], [place], [address] . tel:[phone] [facility] HospitalTrans[facility] [employer] [facility], [address], [place], [place], [address], [place] tel:[phone] SEC [place] Diabetic eye exam (chief complaint) Type 2 diabetes mellitus without complicationsP resence of intraocular lens 3 Maritza Walter. [facility], [address], [place], [place], [address], [place]. tel:[phone] Mainor Iqbal MD.Referri ng Provider: Jose Angel Ponce, [address], [place], [address] . tel:[phone] [employer] [facility] [employer] [facility], [address], [place], [place], [address], [place] tel:[phone] SEC Briseida Godfrey Complete Exam (chief complaint) Type 2 diabetes mellitus without complicationsP resence of intraocular lensDrusen (degenerative) of macula, bilateral Nov- 2 Maritza Walter. [facility], [address], [place], [place], [address], [place]. tel:[phone] Mainor Iqbal MD.Referri ng Provider: Jose Angel Ponce, [facility] [address], [place], [address] . tel:[phone] Office/outpa tient Visit, Est [facility], [address], [place], [place], [address], [place] tel:[phone] SEC Briseida N [place] Complete Exam (chief complaint) Type 2 diabetes mellitus without complicationsP resence of intraocular lens Mar-1 5-202 1 [place] Jose Angel. [facility], [address], [place], [place], [address], [place]. tel:[phone] Specialist : Mainor Iqbal MD, [address] [facility] [address] [place], [address]. tel:[phone] erring Provider: Jose Angel Ponce, [facility] [address], [place], [address] . tel:[phone] [facility]LabsSal[facility] HospitalTransplant Genomics Inc[employer] [facility], [facility] [address], [place], [place], [address], [place] tel:[phone] SEC Briseida N [place] Complete Exam (chief complaint) Type 2 diabetes mellitus without complicationsP resence of intraocular lensEpiphora due to insufficient drainage, bilateral Sep-1 4-202 0 Maritza Jose Angel. [facility], [address], [place], [place], [address], [place]. tel:[phone] Mainor Iqbal MD.Referri ng Provider: Jenifer Funk MD, [address] [facility] [address], [place], [address]. tel:[phone] [facility], [facility] [address], [place], [place], [address], [place] tel:[phone] SEC Briseida N [place] diabetic eye exam (chief complaint) Type 2 diabetes mellitus without complicationsP resence of intraocular lens Sep-0 9-201 9 [place] Jose Angel. [address], [address], [place], [place], [address], [place]. tel:[phone] Mainor Iqbal MD.Referri ng Provider: Jenifer Funk MD, [address] [facility] [address], [place], [address]. tel:[phone] [facility], [address] [place] [address] [address], [place], [place], [address], [place] tel:[phone] SEC [place] No Information 9 [place] Jose Angel. [address] [place] [address] [email or web address] [facility], [address], [place], [place], [address], [place]. tel:[phone] [facility] Eye [facility], [address] [place] [address] [address], [place], [place], [address], [place] tel:[phone] SEC Briseida N [place] Complete Exam (chief complaint) Type 2 diabetes mellitus without complicationsP resence of intraocular lens Maritza Jose Angel. [address] [place] [address], [address], [place], [place], [address], [place]. tel:[phone] Specialist : Mainor Iqbal MD, [address] [facility] [address] [address] [place], [address]. tel:[phone] erring Provider: Jenifer Funk MD, [address] [facility] [address], [place], [address]. tel:[phone] [facility], [address] [place] [address] [address], [place], [place], [address], [place] tel:[phone] SEC [place] No Information 8 Maritza Jose Angel. [address] [place] [address], [address], [place], [place], [address], [place]. tel:[phone] Specialist : Mainor Iqbal MD, [address] [facility] [address] [address] [place], [address]. tel:[phone] Office/outpa tient Visit, Est [facility], [address], [place], [place], [address], [place] tel:[phone] SEC Briseida N [place] diabetic eye exam (chief complaint) Type 2 diabetes mellitus without complicationsL rosi term (current) use of oral hypoglycemic drugsPresence of intraocular lensDrusen (degenerative) of macula, bilateral 7 [place] Jose Angel. [address], [address], [place], [place], [address], [place]. tel:[phone] Referring Provider: Jenifer Funk MD, [address] [facility] [address], [place], [address]. tel:[phone] [employer] [facility] [employer] [facility], [address], [place], [place], [address], [place] tel:[phone] SEC Briseida N [place] No Information 7 [place] Jose Angel. [address], [address], [place], [place], [address], [place]. tel:[phone] [employer] [facility], [address], [place], [place], [address], [place] tel:[phone] SEC Briseida N [place] Diabetic eye exam (chief complaint) No Information 6 [place] Jose Angel. [address], [address], [place], [place], [address], [place]. tel:[phone] Referring Provider: Jenifer Funk MD, [address] [facility] [address], [place], [address]. tel:[phone] [employer] [facility], [address], [place], [place], [address], [place] tel:[phone] SEC Briseida N [place] No Information 6 Maritza Jose Angel. [address], [address], [place], [place], [address], [place]. tel:[phone] Office/outpa tient Visit, Est [facility] Eye [facility], [address], [place], [place], [address], [place] tel:[phone] SEC [place] diabetic exam (chief complaint) No Information 5 Maritza Jose Angel. [address] [email or web address] [facility], [address], [place], [place], [address], [place]. tel:[phone] Referring Provider: Jenifer Funk MD, [address] [facility] [address], [place], [address]. tel:[phone] [facility], [address], [place], [place], [address], [place] tel:[phone] SEC Briseida N [place] Complete Eye Exam (chief complaint) No Information 5 [place] Jose Angel. [address] [email or web address] [facility], [address], [place], [place], [address], [place]. tel:[phone] Referring Provider: Jenifer Funk MD, [address] [facility] [address], [place], [address]. tel:[phone] [facility], [address], [place], [place], [address], [place] tel:[phone] SEC Briseida N [place] No Information 4 Sepideh Huerta. [address] [facility], [address], [place], [place], [address], [place]. tel:[phone] [facility] Eye [facility], [address], [place], [place], [address], [place] [phone] SEC [place] No Information 4 [place] Jose Angel. [address], [address], [place], [place], [address], [place]. tel:[phone] Referring Provider: Smith Islas MD M, [address] [place] [address] [address], [place], [address]. tel:[phone] Office/outpa tient Visit, Est [employer] Eye [facility], [address], [place], [place], [address], [place] [phone] SEC [place] No Information Nov- 7 4 Maritza Walter. [address], [address], [place], [place], [address], [place]. tel:[phone] Referring Provider: Jose Angel Ponce, [address], [place], [address] . tel:[phone] [employer] Eye [facility], [address], [place], [place], [address], [place] [phone] SEC [place] No Information 6 3 Maritza Walter. [address], [address], [place], [place], [address], [place]. tel:[phone] Referring Provider: Jose Angel Ponce, [address], [place], [address] . tel:[phone] [employer] Eye [facility], [address], [place], [place], [address], [place] tel:[phone] SEC Briseida N [place] No Information 0 201 3 Sepideh Huerta. [address] [facility], [address], [place], [place], [address], [place]. tel:[phone] Referring Provider: Jose Angel Ponce, [address], [place], [address] . tel:[phone] [employer] [facility] [employer] [facility], [address], [place], [place], [address], [place] tel:[phone] [place] No Information Sep-0 3-201 3 Maritza Walter. [address], [address], [place], [place], [address], [place]. tel:[phone] Referring Provider: Jose Angel Maritza A, [address], [place], [address] . tel:[phone] [employer] Eye [facility], [address], [place], [place], [address], tel:[phone] SEC [place] No Information 0 3 Marit[place] Jose Angel. [facility] [address], [address], [place], [place], [address], [place]. tel:[phone] Referring Provider: Jose Angel [place] A, [facility] [address], [place], [address] . tel:[phone] [facility], [address], [place], [place], [address], [place] tel:[phone] SEC [place] No Information 2 Maritza Jose Angel. [facility], [address], [place], [place], [address], [place]. tel:[phone] [employer] Eye [facility], [address], [place], [place], [address], [place] tel:[phone] SEC [place] No Information 2 Maritza Jose Angel. [facility], [address], [place], [place], [address], [place]. tel:[phone] [employer] Eye [facility], [address], [place], [place], [address], [place] tel:[phone] SEC [place] Professional No Information 0 2 Maritza Jose Angel. [facility] [address], [address], [place], [place], [address], [place]. tel:[phone] [facility], [address], [place], [place], [address], [place] tel:[phone] SEC [place] No Information 0 7-201 1 Maritza Walter. [address], [address], [place], [place], [address], . tel:[phone] [employer] [facility] [employer] [facility], [address], [place], [place], [address], tel:[phone] SEC Briseida N [place] No Information 2 2200 8 Maritza Walter. [address], [address], [place], [place], [address], [place]. tel:[phone] Referring Provider: Jose Angel Ponce, [facility] [address], [place], [address] . tel:[phone] [employer] [facility], [address], [place], [place], [address], tel:[phone] SEC Briseida N [place] No Information 0 6200 7 Maritza Walter. [address], [address], [place], [place], [address], [place]. tel:[phone] [employer] [facility], [address], [place], [place], [address], tel:[phone] SEC Briseida N [place] No Information 5200 7 Maritza Jose Angel. [address], [address], [place], [place], [address], [place]. tel:[phone] Family History Family Member Type Diagnosis Age At Onset Mother and Grandmoth Problem (finding) Diabetes mellit Payers Payer name Insurance type Covered alliance party ID Davekimberley duggan(s) Aetna Mdcr Gold Adv Prime CI [id number] Social History Type Description Quantity Date Captured [...] eye. 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 [...]
--- OUTSIDE RECORDS SUMMARY | 2025-01-21 03:25 | XMS_ITS | Encounter Summary ---
Author Organization [facility] Address [address] [place] [address] Care Team Providers Care Assembly Machine Feeder Name Role Phone Becka Escobedo MD Primary Care Provider [phone] Encounter Details Date Type Department Care Team (Late st Contact Info) Description 10/16/2007 Orders Only [facility] Internal Medicine [address] [address] Becka Escobedo MD [address] [place] [address] Social History Tobacco Use Types Packs/Day Years Used Date Smoking Tobacco: Never Assessed Comments Unknown Sex and Gender Information Value Date Recorded Sex Assigned at Not on file 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 [address] D.O.B: 1945 SSN: [id number] Parent/Guardian if applicable: Patient Insurance: [employer] ID#: [id number] Group#: ORDER(S) #: [id number] [facility] BEST TO CALL CELL. [phone] MAY WE LEAVE MESSAGE AT THAT NUMBER: YES, LEAVE MESSAGE. PLEASE SCHEDULE THE APPOINTMENT AT THE FOLLOWING LOCATION: [phone]. TEST PRIORITY: 2 - 7 DAYS. SPECIAL SCHEDULING INSTRUCTIONS: need prep ORDERING PHYSICIAN: BECKA ESCOBEDO MD OFFICE VP PUBLIC RELATIONS & PHONE: Rossi Herrera E ORDER PRINTED BY: OCT 17, 2007 Deidre Biggs 12:51 p FOR SCHEDULING USE ONLY: FIRST ATTEMPT Date:OCT 18, 2007 Deidre Biggs 08:30 a Spoke with Patient. OCT 18, 2007 Deidre Biggs 08:31 a [facility] [phone]. APPOINTMENT DATE : 10/21/2007 ( 2pm) The appointment was scheduled by Deidre Biggs at [phone] FINAL ACTION Follow up completed. Spoke with [...] proceed with us LAB ORDERS: Order number: [id number] Test Ordered: US BREAST LEFT StA 461.9-SINUSITIS [...] on filedocumented in this encounter Care Teams Assembly Machine Feeder Relationship Specialty Start Date End Date Becka Escobedo MD [address] [place] [id number] PCP - General 10/22/03 07/11/15 documented as of this encounter
--- OUTSIDE RECORDS SUMMARY | 2025-01-21 03:25 | XMS_ITS | Encounter Summary ---
Author Organization [facility] Address 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
--- OUTSIDE RECORDS SUMMARY | 2025-01-21 03:25 | XMS_ITS | Encounter Summary ---
Author Organization [facility] Address 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
--- OUTSIDE RECORDS SUMMARY | 2025-01-21 03:25 | XMS_ITS | Clinical Summary ---
Author Organization [facility] Address [address] [place] [address] Care Team Providers Care Elevator Constructor Name Role Phone Unavailable Primary Care Provider Unavailabl e Source Comments [facility],non-owned Affiliates and Associated Physician Practices is amultiple site organization consisting of ambulatory clinics and hospital sitesin [place], [place], [place] and [place]. This disclosure is being madepursuant to the Care Everywhere program and may not contain all information available regarding this patient. Last updated 18.[facility] Social History Tobacco Use Types Packs/Day Years [...]
--- OUTSIDE RECORDS SUMMARY | 2025-01-21 03:25 | XMS_ITS | Encounter Summary ---
Author Organization [facility] Address [address] [place] [address] Care Team Providers Care Top Collar Maker Name Role Phone Smith Islas MD Primary Care Provider [phone] Encounter Details Date Type Department Care Team (Latest Contact Info) Description 01/30/2008 Outpatient Historical [facility] Internal Medicine [address] [address] Smith Islas MD [address] [place] [address] DM w/o Complication Type II (CMS/HCC) Social History Tobacco Use Types Packs/Day Years Used Date Smoking Tobacco: Never Assessed Comments Unknown Sex and Gender Information Value Date Recorded Sex Assigned at Not on file 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 Gender Identity Not on file Sexual [...] CDT) HDL 57 40 - 59 mg/dL [facility] CHOLESTEROL 190 100 - 199 mg/dL [facility] CHOL/HDL RATIO 3.3 2.0 - 5.0 [facility] TRIGLYCERIDE 120 10 - 149 mg/dL [facility] LDL CALCULATED 109(H) <=99 mg/dL [facility] LIPID PANEL COMMENT See Below [facility] Comment: The adult ATP and pediatric NCEP classifications for lipids are available on the [facility] Intranet at: [email or web address] Select: Lab Policies and Procedures,Current Select: Lipid Panel Interpretation Blood specimen (specimen) 01/30/2008 9:19 AM CDT 01/30/2008 3:20 PM CDT Smith Islas MD CHEMISTRY ORDERABLES Edited Performing Organization Address [facility] Co de Phone Number [facility] [address] [place] [address] * (ABNORMAL) HEMOGLOBIN A1C (01/30/2008 9:19 AM CDT) HEMOGLOBIN A1C 6.9(H) 4.1 - 6.1 % of Hgb [facility] GLUCOSE, MEAN BLOOD 168 mg/dL [facility] Blood specimen (specimen) 01/30/2008 9:19 AM CDT 01/30/2008 3:20 PM CDT Smith Islas MD CHEMISTRY ORDERABLES Final Re sult [facility] CLIA# [id number] [address] [place] [address] * TSH (01/30/2008 9:19 AM CDT) TSH 1.13 0.27 - 4.20 uU/mL [facility] Blood specimen (specimen) 01/30/2008 9:19 AM CDT 01/30/2008 3:20 PM CDT us Smith Islas MD CHEMISTRY ORDERABLES Final Re sult [facility] [address] [place] [address] * (ABNORMAL) COMPREHENSIVE METABOLIC PANEL (01/30/2008 9:19 AM CDT) [facility] TOTAL PROTEIN 7.2 6.3 - 8.6 g/dL [facility] POTASSIUM 4.0 3.5 - 4.9 mmol/L [facility] GLUCOSE 113(H) 65 - 99 mg/dL [facility] AST 17 12 - 32 U/L [facility] BUN 13 6 - 20 mg/dL [facility] CALCIUM 9.3 8.4 - 10.2 mg/dL [facility] CHLORIDE 105 96 - 108 mmol/L [facility] ALBUMIN 4.2 3.4 - 4.8 g/dL [facility] CREATININE 0.47(L) 0.51 - 0.95 mg/dL [facility] SODIUM 139 135 - 145 mmol/L [facility] ALT 18 0 - 31 U/L [facility] ALKALINE PHOSPHATASE 114(H) 35 - 104 U/L [facility] BILIRUBIN TOTAL 0.6 0.2 - 1.0 mg/dL [facility] CO2 22 22 - 30 mmol/L [facility] GFR, >60 >=60 mL/min/1. 7 sq meter [facility] GFR >60 >=60 mL/min/1. 7 sq meter [facility] Comment: Estimated GFR rate interpretative information for both Americans and non- Americans is available on the [facility] Intranet at: [email or web address] Select: Lab Policies and Procedures Select: Reference Ranges - GFR Blood specimen (specimen) 01/30/2008 9:19 AM CDT 01/30/2008 3:20 PM CDT us Smith Islas MD CHEMISTRY ORDERABLES Edited [facility] [address] [place] [address] documented in this encounter Visit Diagnoses Diagnosis Type II or unspecified type diabetes mellitus without mention of complication, not stated as uncontrolled documented in this encounter Care Teams Top Collar Maker Relationship Specialty Start Date End Date Smith Islas MD [address] [place] [address] PCP - General 10/22/03 07/11/15 documented as of this encounter
--- OUTSIDE RECORDS SUMMARY | 2025-01-21 03:25 | XMS_ITS | Encounter Summary ---
Author Organization [facility] Address [address] [place] [address] Care Team Providers Care Jinrikisha Driver Name Role Phone Becka Escobedo MD Primary Care Provider [phone] Encounter Details Date Type Department Care Team (Latest Contact Info) Description 03/11/2008 Outpatient Historical [facility] Rebel Swann MD [address] [place] [address] Lumbago; Degeneration of Lumbar or Lumbosacral Intervertebral Disc; Arthrodesis Status Social History Tobacco Use Types Packs/Day Years Used Date Smoking Tobacco: Former Alcohol Use Standard Drinks/Week Comments No 0 (1 standard drink = 0.6 oz pur e alcohol) Comments No Sex and Gender Information Value Date Recorded Sex Assigned at Not on file 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 Gender Identity Not on file Sexual [...] AM CDT Narrative 03/11/2008 3:22 PM CDT [facility] [place], [place] [address] [place], [place] [address] Admit Date: 03/11/2008 MORRIS STOKES Sex: F Admit Prov: REBEL SWANN Date: 1945 Primary Care Prov: BECKA ESCOBEDO CMRN: [id number] Room: [facility]: [address] [place] [address] IMAGING SERVICES Ordering Prov: N/A Accession Number: [id number] Interpretation LUMBAR SPINE 2 VIEWS, 03/11/2008 Clinical [...] Procedure Note Emely Kirby MD - 03/11/2008 [facility] [place], [place] [address] [place], [place] [address] Admit Date: 03/11/2008 MORRIS STOKES Sex: F Admit Prov: REBEL SWANN Date: 1945 Primary Care Prov: BECKA ESCOBEDO CMRN: [id number] Room: [facility]: [address] [place] [address] IMAGING SERVICES Ordering Prov: N/A Interpretation LUMBAR [...] status documented in this encounter Care Teams Jinrikisha Driver Relationship Specialty Start Date End Date Becka Escobedo MD [address] [place] [address] PCP - General 10/22/03 07/11/15 documented as of this encounter
--- OUTSIDE RECORDS SUMMARY | 2025-01-21 03:25 | XMS_ITS | CONTINUITY OF CARE DOCUMENT ---
Author Name héctor anaya Address Unknown Organization [facility] Address [address] [place] [address] Phone [phone] Care Team Providers Care Automotive Fleet Supervisor Name Role Phone Trini SAENZ, Otto Unavailable Otto Feliz MD Unavailable [phone] INSURANCE PROVIDERS Payer name Policy type / Coverage type [place] red green party ID [id number] PAY
--- OUTSIDE RECORDS SUMMARY | 2025-01-21 03:25 | XMS_ITS | Clinical Summary ---
Author Organization [facility] Address [address] [place] [address] Care Team Providers Care Crm Technical Lead Name Role Phone Bradley Rubin MD Primary Care Provider [phone] Allergies No known active allergies Medications oxyCODONE-acetam [...] patient's age to complete this topic Insurance [facility] Care Teams Crm Technical Lead Relationship Specialty Start Date [place] [address] PCP - General FAMILY PRACTICE 05/16/21
--- OUTSIDE RECORDS SUMMARY | 2025-01-21 03:25 | XMS_ITS | Encounter Summary ---
Author Organization [facility] Address [address] [place] [address] Phone Care Team Providers Care Land Management Supervisor Name Role Phone Radhika rAredondo MD Primary Care Provider [phone] Torri Johnson PT Unavailable Unavail able Dustin Tim PT Unavailable Unavailab Jong Brunson SKIN FITTER Unavailable Unavaila Moriah Zapien NP Primary Care Provider [phone] Bradley Rubin MD Primary Care Provider [phone] Miscellaneous, Not In File Unavailable Unava ilTano Cates LAND USE PLANNER Unavailable UnavailMaryam Sargent RN Unavailable [phone] Brijesh Cardenas MD Primary Care Provider + [phone] Encounter Details Date Type Department Care Team (Late st Contact Info) Description 12/06/2017 Orders Only [facility] ProviderJohnny MD [facility] [place] [address] Social History Tobacco Use Types Packs/Day Years Used Date Smoking Tobacco: Former Cigarettes 1 15 Smokeless Tobacco: Never Alcohol Use Standard Drinks/Week Comments No 0 (1 standard drink = 0.6 oz pur e alcohol) Comments Unknown Sex and Gender Information Value Date Recorded Sex Assigned at Not on file 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 [place] [address] PCP - General Family Medicine 08/16/20 07/11/22 Brijesh Cardenas MD [address] [place] [address] [address] [place] [address] PCP - General Family Medicine 07/12/22 Torri Johnson, PT Physical Therapist Physical Therapy 04/18/18 Dustin Tim, PT Physical Therapist Physical Therapy 04/26/18 Jong Reeves, SKIN FITTER Physical Therapist Physical Therapy 05/08/18 Miscellaneous, Not In File 03/17/21 Tano Purcell LCSW Mains And Service Supervisor 03/22/21 01/17/22 Maryam Cline, RN [address] [place] [address] [address] [place] [address] Telecommunication Lines Repairer 07/04/21 07/27/21 documented as of this encounter
--- OUTSIDE RECORDS SUMMARY | 2025-01-21 03:25 | XMS_ITS | Encounter Summary ---
Author Organization [facility] Address 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 [address] D.O.B: 1945 SSN: [id number] Parent/Guardian if applicable: Patient Insurance: [employer] Policy#: [id number] Group #: Best To Call : [phone] Best Time to Call : ANYTIME. May We Leave Message At That Number : YES, LEAVE MESSAGE. Referring to: GENERAL SURGERY Dr. Emma Brooke ph: [phone] fax: [phone]. Dr. Noelle Caceres ph: [phone] fax [phone]. Reason for referral: pain in left breast ORDERING PHYSICIAN : BECKA ESCOBEDO MD PRIORITY OF REFERRAL: AT PATIENT'S CONVENIENCE. OFFICE BARREL CUTTER & PHONE: Zara Linares C FOR SCHEDULING USE ONLY FIRST ATTEMPT Date:NOV 14, 2007 Bora Steen 10:55 a Spoke with Patient. pt will need to bring xrays and films with her to the appt. APPOINTMENT DATE : 11/18/2007 ( 12:[address] Brooke) LT 11/14/07 10:57 am Referral number: [facility] NN ligotm 11/14/2007 10:58 a Referral/Pre-auth [...] REFERRAL: GENERAL SURGERY Dr. Emma Brooke ph: [phone] fax: [phone]. Dr. Noelle Caceres ph: [phone] fax [phone]. Patient Education: The patient was allowed to ask questions to stated satisfaction. RETURN VISIT : Instructed to call if not improving. Electronically Signed by: Becka Escobedo MD on Tuesday, November 13, 2007 documented in this encounter Plan of Treatment Not on file documented as of this encounter Visit Diagnoses Not on filedocumented in this encounter Care Teams Microstrategy Architect Developer Relationship Specialty Start Date End Date Becka Escobedo MD [address] [place] [phone] PCP - General 10/22/03 07/11/15 documented as of this encounter
--- OUTSIDE RECORDS SUMMARY | 2025-01-21 03:25 | XMS_ITS | Encounter Summary ---
Author Organization [facility] Address [address] [place] [address] Care Team Providers Care Pre Parole Counseling Aide Name Role Phone Smith Islas MD Primary Care Provider [phone] Encounter Details Date Type Department Care Team (Latest Contact Info) Description 02/25/2008 Outpatient Historical [facility] Smith Islas MD [address] [place] [address] Unspecified Backache; Degeneration of Lumbar or Lumbosacral Intervertebral Disc; Arthrodesis Status Social History Tobacco Use Types Packs/Day Years Used Date Smoking Tobacco: Former Alcohol Use Standard Drinks/Week Comments No 0 (1 standard drink = 0.6 oz pur e alcohol) Comments No Sex and Gender Information Value Date Recorded Sex Assigned at Not on file 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
--- OUTSIDE RECORDS SUMMARY | 2025-01-21 03:25 | XMS_ITS ---
Author Organization 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 She wants, we have two industry segment specialist in our group if it is [...] 11/07/2017 Assessment & Plan (09/27/2020 2:[address] BAILIFF): Not well controlled, patient weight is stable [...] therapy Assessment & Plan (10/25/2020 2:[address] BAILIFF): Patient is better tolerating Januvia, will continue current dose and check a1c today Assessment & Plan (09/27/2020 2:[address] BAILIFF): Does not want to check a1c today -unknown control, patient had high carbohydrate meals during holiday season -cannot tolerate metformin 2/2 diarrhea, would like to try a different medication -will prescribe Januvia, and recheck blood sugars in 1 month to evaluate response to new therapy Assessment & Plan (08/18/2020 12:[address] BAILIFF): Stable, well controlled, will continue emphaglifozin-metformin combo pill and check A1c today Assessment & Plan (05/10/2018 8:58 AM CDT): Continue current treatment plan. Foot care discussed. 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 -continue to monitor aspatient does say she feels exhausted all of the time. Hyperlipidemia 10/26/2014 Overview (12/29/2016): Hyperlipidemia Assessment & Plan (08/18/2020 12:[address] BAILIFF): Stable, well controlled, continue atorvastatin 80 mg Essential hypertension 10/26/2014 Overview (12/29/2016): Essential hypertension Assessment & Plan (10/25/2020 2:[address] BAILIFF): Blood pressure is well controlled, no signs [...] measurement Assessment & Plan (10/25/2020 2:[address] BAILIFF): Will check TSH today, patient reprots she feels tired all of the time, but does not have any other symptoms of hypo or hyper-thyroidism. Assessment & Plan (08/18/2020 12:[address] BAILIFF): Stable, no signs or symptoms of hypo [...] she has some improvement with use of Soniod lift at home as well as help [...] depression Assessment & Plan (10/25/2020 2:[address] BAILIFF): Improving, patient has started sertraline again, feels better, mood is improving. Assessment & Plan (09/27/2020 2:[address] BAILIFF): Discussed with patient risk of GI bleeding combination of NSAIDs and sertraline, that likely occurs with all SSRIs Patient prefers emma continue with duloexetine -patient to work on some lifestyle changes for weight loss, which can also help with mood such as get out and exercise more Assessment & Plan (08/18/2020 12:[address] BAILIFF): Patient is stress related to caring for and elderly mother Unable to travel, and limited social interactions due to COVID-19 He constipation, will continue Cymbalta 60 mg Continue to follow with patient to evaluate response to therapy Osteoarthritis 10/12/2003 Assessment & Plan (10/25/2020 2:[address] BAILIFF): Not well controlled, continues to have pain [...]
--- OUTSIDE RECORDS SUMMARY | 2025-01-21 03:41 | XMS_ITS | CONTINUITY OF CARE DOCUMENT ---
Author Name héctor anaya Address Unknown Organization [facility] Address [address] [place] [address] Phone [phone] Care Team Providers Care Hay Stacker Operator Name Role Phone Trini SAENZ, Otto Unavailable [phone] Otto Feliz MD Unavailable [phone] INSURANCE PROVIDERS Payer name Policy type / Coverage type [place] red democrat ID SELF PAY
--- OUTSIDE RECORDS SUMMARY | 2025-01-21 03:41 | XMS_ITS | Continuity of Care Document ---
Author Organization [facility] Address [address] [facility] [address] [place] [address] Phone Care Team Providers Care Health Navigator Name Role Phone Ronald BALDWIN, Huyen Unavailable [...] affected area 0.00 - Active Mucinex Fast-Max Owon-Wyi-Gemo Throat 5 mg-10 mg-325 mg-200 mg capsule [...] Diagnoses Date Provider Providers Copied on Encounter [facility], [address], [place], [place], [address], tel:[phone] SEC Colton Rodriguez Complete Exam (chief complaint) Type 2 diabetes mellitus without complicationsV itreous degeneration, left eyePresence of intraocular lens 4 Ronald OD Huyen. [facility] [address], [address], [place], [place], [address], [place]. tel:[phone] Mainor Iqbal MD.Rand burgos Provider: Jose Angel Ponce, [address], [place], [address] . tel:[phone] [facility] for [facility], [address], [place], [place], [address], [place] tel:[phone] SEC Abie [place] Diabetic eye exam (chief complaint) Type 2 diabetes mellitus without complicationsP resence of intraocular lens 3 Maritza Walter. [facility] [address], [address], [place], [place], [address], [place]. tel:[phone] Mainor Iqbal MD.Referri ng Provider: Jose Angel Ponce, [address], [place], [address] . tel:[phone] [employer] [facility], [address], [place], [place], [address], [place] tel:[phone] SEC Briseida Godfrey Complete Exam (chief complaint) Type 2 diabetes mellitus without complicationsP resence of intraocular lensDrusen (degenerative) of macula, bilateral Nov- 2 Maritza Walter. [facility] [address], [address], [place], [place], [address], [place]. tel:[phone] Mainor Iqbal MD.Referri ng Provider: Jose Angel Ponce, [facility] [address], [place], [address] . tel:[phone] Office/outpa tient Visit, Est [facility], [address], [place], [place], [address], [place] tel:[phone] SEC Briseida N Lindbergh Complete Exam (chief complaint) Type 2 diabetes mellitus without complicationsP resence of intraocular lens Mar-1 5-202 1 Eyota Jose Angel. [facility] [address], [address], [place], [place], [address], [place]. tel:[phone] Specialist : Mainor Iqbal MD, [address] [facility] [address] [address] [place], [address]. tel:[phone] erring Provider: Jose Angel Ponce, [facility] [address], [place], [address] . tel:[phone] Looking for GamersHarris HospitalAutoUncle [facility], [facility] [address], [place], [place], [address], [place] tel:[phone] SEC Briseida N Lindbergh Complete Exam (chief complaint) Type 2 diabetes mellitus without complicationsP resence of intraocular lensEpiphora due to insufficient drainage, bilateral Sep-1 4-202 0 Maritza Jose Angel. [facility] [address], [address], [place], [place], [address], [place]. tel:[phone] Mainor Iqbal MD.Referri ng Provider: Jenifer Funk MD, [address] [facility] [address], [place], [address]. tel:[phone] [facility], [facility] [address], [place], [place], [address], [place] tel:[phone] SEC Briseida N Lindbergh diabetic eye exam (chief complaint) Type 2 diabetes mellitus without complicationsP resence of intraocular lens Sep-0 9-201 9 Eyota Jose Angel. [address], [address], [place], [place], [address], [place]. tel:[phone] Mainor Iqbal MD.Referri ng Provider: Jenifer Funk MD, [address] [facility] [address], [place], [address]. tel:[phone] [facility], [address] [place] [address] [address], [place], [place], [address], [place] tel:[phone] SEC [place] N Lindberg[place] No Information 9 Eyota Jose Angel. [address] [place] [address] [employer] [facility], [address], [place], [place], [address], [place]. tel:[phone] [facility], [address] [place] [address] [address], [place], [place], [address], [place] tel:[phone] SEC Briseida N Lindbergh Complete Exam (chief complaint) Type 2 diabetes mellitus without complicationsP resence of intraocular lens Maritza Jose Angel. [address] [place] [address], [address], [place], [place], [address], [place]. tel:[phone] Specialist : Mainor Iqbal MD, [address] [facility] [address] [place], [address]. tel:[phone] erring Provider: Jenifer Funk MD, [address] [facility] [address], [place], [address]. tel:[phone] [facility], [address] [place] [address] [address], [place], [place], [address], [place] tel:[phone] SEC [place] N [place] No Information 8 Maritza Jose Angel. [address] [place] [address], [address], [place], [place], [address], [place]. tel:[phone] Specialist : Mainor Iqbal MD, [address] [facility] [address] [place], [address]. tel:[phone] Office/outpa tient Visit, Est [facility], [address], [place], [place], [address], [place] tel:[phone] SEC Briseida N Lindbergh diabetic eye exam (chief complaint) Type 2 diabetes mellitus without complicationsL rosi term (current) use of oral hypoglycemic drugsPresence of intraocular lensDrusen (degenerative) of macula, bilateral 7 Eyota Jose Angel. [address], [address], [place], [place], [address], [place]. tel:[phone] Referring Provider: Jenifer Funk MD, [address] [facility] [address], [place], [address]. tel:[phone] [employer] [facility] [employer] [facility], [address], [place], [place], [address], [place] tel:[phone] SEC Briseida N Lindbergh No Information 7 Eyota Jose Angel. [address], [address], [place], [place], [address], [place]. tel:[phone] [employer] [facility], [address], [place], [place], [address], [place] tel:[phone] SEC Briseida N Lindbergh Diabetic eye exam (chief complaint) No Information 6 Eyota Jose Angel. [address], [address], [place], [place], [address], [place]. tel:[phone] Referring Provider: Jenifer Funk MD, [address] [facility] [address], [place], [address]. tel:[phone] [facility] [facility], [address], [place], [place], [address], [place] tel:[phone] SEC Briseida N Lindbergh No Information 6 Maritza Jose Angel. [address], [address], [place], [place], [address], [place]. tel:[phone] Office/outpa tient Visit, Est [facility], [address], [place], [place], [address], [place] tel:[phone] SEC [place] N Lindbergh diabetic exam (chief complaint) No Information 5 Maritza Jose Angel. [address] [employer] [facility], [address], [place], [place], [address], [place]. tel:[phone] Referring Provider: Jenifer Funk MD, [address] [facility] [address], [place], [address]. tel:[phone] [facility], [address], [place], [place], [address], [place] tel:[phone] SEC Briseida N Lindbergh Complete Eye Exam (chief complaint) No Information 5 Eyota Jose Angel. [address] [employer] [facility], [address], [place], [place], [address], [place]. tel:[phone] Referring Provider: Jenifer Funk MD, [address] [facility] [address], [place], [address]. tel:[phone] [facility], [address], [place], [place], [address], [place] tel:[phone] SEC Briseida N Lindbergh No Information 4 Sepideh Huerta. [address] [facility], [address], [place], [place], [address], [place]. tel:[phone] [facility], [address], [place], [place], [address], [place] [phone] SEC [place] N Lindbergh No Information 4 Eyota Jose Angel. [address] [address], [address], [place], [place], [address], [place]. tel:[phone] Referring Provider: Smith Islas MD M, [address] [place] [address] [address], [place], [address]. tel:[phone] Office/outpa tient Visit, Est [employer] [facility], [address], [place], [place], [address], [place] [phone] SEC [place] N Lind[place] No Information Nov- 7 4 Maritza Walter. [address], [address], [place], [place], [address], [place]. tel:[phone] Referring Provider: Jose Angel Ponce, [address], [place], [address] . tel:[phone] [employer] [facility], [address], [place], [place], [address], [place] [phone] SEC [place] N [place] No Information 6 3 Maritza Walter. [address], [address], [place], [place], [address], [place]. tel:[phone] Referring Provider: Jose Angel Ponce, [address], [place], [address] . tel:[phone] [employer] [facility], [address], [place], [place], [address], [place] tel:[phone] SEC Briseida N Lindbergh No Information 0 201 3 Sepideh Huerta. [address] [facility], [address], [place], [place], [address], [place]. tel:[phone] Referring Provider: Jose Angel Ponce, [address], [place], [address] . tel:[phone] [employer] Eye [employer] [facility], [address], [place], [place], [address], [place] tel:[phone] [facility] [place] No Information Sep-0 3-201 3 Maritza Walter. [address], [address], [place], [place], [address], [place]. tel:[phone] Referring Provider: Jose Angel Maritza A, [address], [place], [address] . tel:[phone] [employer] [facility], [address], [place], [place], [address], tel:[phone] SEC [place] N [place] No Information 0 3 Maritza Jose Angel. [facility] [address], [address], [place], [place], [address], [place]. tel:[phone] Referring Provider: Jose Angel Eyota A, [facility] [address], [place], [address] . tel:[phone] [facility], [address], [place], [place], [address], [place] tel:[phone] SEC [place] N Lindbergh No Information 2 Maritza Jose Angel. [facility] [address], [address], [place], [place], [address], [place]. tel:[phone] [facility] [facility], [address], [place], [place], [address], [place] tel:[phone] SEC [place] N Lindbergh No Information 2 Maritza Jose Angel. [facility] [address], [address], [place], [place], [address], [place]. tel:[phone] [facility] [facility], [address], [place], [place], [address], [place] tel:[phone] SEC [place] [facility] No Information 0 2 Maritza Jose Angel. [facility] [address], [address], [place], [place], [address], [place]. tel:[phone] [facility], [address], [place], [place], [address], [place] tel:[phone] SEC [place] N Lindbergh No Information 0 7-201 1 Maritza Walter. [address] [address], [address], [place], [place], [address], . tel:[phone] [employer] [facility] [employer] [facility], [address], [place], [place], [address], tel:[phone] SEC Briseida N Lindbergh No Information 2 2200 8 Maritza Walter. [address], [address], [place], [place], [address], [place]. tel:[phone] Referring Provider: Jose Angel Ponce, [facility] [address], [place], [address] . tel:[phone] [employer] [facility], [address], [place], [place], [address], tel:[phone] SEC Briseida N Myronbergh No Information 0 6200 7 Maritza Walter. [address], [address], [place], [place], [address], [place]. tel:[phone] [employer] [facility], [address], [place], [place], [address], tel:[phone] SEC Briseida N Myronbergh No Information 5200 7 Maritza Jose Angel. [address] [address], [address], [place], [place], [address], [place]. tel:[phone] Family History Family Member Type Diagnosis Age At Onset Mother and Grandmoth Problem (finding) Diabetes mellit Payers Payer name Insurance type Covered libertarian ID Davekimberley duggan(s) [employer] Mdcr Gold Adv Prime CI [id number] Social History Type Description Quantity Date Captured [...] eye. 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 [...]
== END 2025-01-21 03:41 | disposition home or self-care (01) ==
PROVIDERS: Emergency Provider Student in an Organized Health Care Education/Training Program; PCP Family Medicine
DX: G45.9 Transient cerebral ischemic attack, unspecified (principal); T81.508A Unspecified complication of foreign body accidentally left in body following other procedure, initial encounter; I82.C12 Acute embolism and thrombosis of left internal jugular vein; F41.9 Anxiety disorder, unspecified; F32.A Depression, unspecified; Z87.440 Personal history of urinary (tract) infections; E11.9 Type 2 diabetes mellitus without complications; E03.9 Hypothyroidism, unspecified; E78.5 Hyperlipidemia, unspecified; I10 Essential (primary) hypertension; G89.29 Other chronic pain; Y71.0 Diagnostic and monitoring cardiovascular devices associated with adverse incidents
CPT/HCPCS: 36415; 70450; 70496; 70498; 71045; 80053; 82948; 84484; 85025; 85610; 85730; 93005; 96361; 96374; 96375; 99284; J1885; J2765; J7030; Q9967

== ENCOUNTER 2025-04-01 10:10 | Outpatient (CLI) | payer MEDICARE, SELFPAY ==
--- NOTE | ~2025-04-01 | US_ITS ---
Thyroid ultrasound. Clinical History: Thyroid nodule Findings: Real-time sonography of the thyroid gland was performed. The right lobe measures 3.3 x 1.1 x 1.4 cm. The left lobe measures 4.2 x 2.4 x 1.4 cm. The isthmus is 3 mm in AP diameter. There is a 1.1 x 0.8 x 0.7 cm hypoechoic nodule in the right upper pole. There is a 2.1 x 2.1 x 1.4 cm heterogeneous nodule in the left mid to lower pole. Impression: 2.1 cm heterogeneous TR-4 nodule in the left thyroid lobe. FNA advised for further evaluation. 1.1 cm TR-4 nodule in the right lobe. Annual follow-up exam advised.. Reviewed, dictated and finalized at [facility]. Impression: 2.1 cm heterogeneous TR-4 nodule in the left thyroid lobe. FNA advised for furt her evaluation. 1.1 cm TR-4 nodule in the right lobe. Annual follow-up exam advised..
== END 2025-04-01 10:11 | disposition home or self-care (01) ==
LOC: GOSHIMG 10:11
PROVIDERS: PCP Family Medicine; Visit Provider Nurse Practitioner Family
DX: E04.2 Nontoxic multinodular goiter (principal); E03.9 Hypothyroidism, unspecified
CPT/HCPCS: 76536